=== PATIENT | male | born 1940 | race Caucasian/White ===

== ENCOUNTER → 2020-07-08 12:43 | Outpatient (CLI) | payer MEDICARE, SELFPAY ==
--- NOTE | 2020-07-08 13:00 | CDU_ITS ---
Reason For Study: hollenhorst plaque Rt. Velocities/BP Lt. Velocities/BP Prox CCA 116.7/12.6 cm/sec. Prox CCA 124.0/16.3 cm/sec. Mid CCA 89.3/14.4 cm/sec. Mid CCA 114.9/18.1 cm/sec. Dist CCA 107.6/16.3 cm/sec. Dist CCA 76.5/18.1 cm/sec. Prox ICA 63.7/15.8 cm/sec. Prox ICA 56.7/15.0 cm/sec. Mid ICA 69.9/18.3 cm/sec. Mid ICA 86.7/25.3 cm/sec. Dist ICA 82.1/23.2 cm/sec. Dist ICA 100.2/26.5 cm/sec. Rt. ICA/CCA = 82.1/89.3=0.9. Lt. ICA/CCA = 100.2/114.9=1.1. Prox ECA 62.5/7.2 cm/sec. Prox ECA 80.1/0.0 cm/sec. Rt. Vert. 69.5/11.8 cm/sec. LT Vert. is biphasic flow. Right Extracranial There is intimal thickening but no significant atherosclerotic plaque noted in the right common carotid artery. There is homogeneous, smooth atherosclerotic plaque noted in the right internal carotid artery. There is no significant atherosclerotic plaque noted in the right external carotid artery. Antegrade flow is noted in the right vertebral artery. Left Extracranial There is intimal thickening but no significant atherosclerotic plaque noted in the left common carotid artery. There is intimal thickening but no significant atherosclerotic plaque noted in the left internal carotid artery. There is no significant atherosclerotic plaque noted in the left external carotid artery. Biphasic flow is noted in the left vertebral artery. Procedure Carotid Duplex 13090. Exam performed in department. VL/Carotid Duplex Ultrasound Interpretation Summary Mild calcific plaque with shadowing proximal right internal carotid artery with less than 50% stenosis Less than 50% stenosis right external carotid artery Intimal thickening but no hemodynamically significant plaque proximal left inte rnal carotid artery with less than 50% stenosis Less than 50% stenosis left external carotid artery Bidirectional flow left vertebral suggestive of proximal left subclavian artery stenosis. Clinical correlation would be appropriate. Ordering Physician: Jeffy Barillas Referring Physician: García Cook Performed By: Yarely Magallanes RDCS, RVT
== END ==
PROVIDERS: PCP Family Medicine; Referring Provider Ophthalmology; Visit Provider Ophthalmology
DX: H34.211 Partial retinal artery occlusion, right eye (principal)
CPT/HCPCS: 93880

== ENCOUNTER → 2022-11-21 | Outpatient (CLI) | payer MEDICARE, SELFPAY ==
[2022-11-21 15:51] LABS: Bacteria 0 SEEN /hpf (None Seen); Mucous, Urine 0 SEEN /hpf (<or=2+); Squamous Epithelial Cells - UA 0 SEEN /hpf (0-5)
[2022-11-21 17:55] LABS: Absolute Lymphocyte Count 1.81 X10^3/uL (0.83-4.51); Absolute Neutrophil Count 4.1 X10^3/uL (2.0-7.7); Basophil# 0.08 X10^3/uL; Basophil% 1.2 % (0-1); Eosinophil# 0.45 X10^3/uL; Eosinophils% 6.5 % (0-5); Hemoglobin 14.3 g/dL (13.0-16.5); Lymphocyte # 1.81 X10^3/ul (0.83-4.51); Lymphocyte % 26.2 % (19-41); Mean Corp Hgb Conc 33.3 g/dL (32-36); Mean Corpuscular Hgb 30.4 pg (27.0-32.0); Mean Corpuscular Volume 91.3 fL (80-94); Mean Platelet Vol. 9.8 fl (6.2-12.0); Monocyte# 0.47 X10^3/uL; Monocyte% 6.8 % (0-10); NRBC Flagged by Analyzer 0 % (0-5); Neutrophil % 59.2 % (47-70); Platelet Count 183 K/mm3 (150-450); RBC Distribution Width CV 12.6 % (11.6-14.6); Red Blood Count 4.71 M/mm3 (4.6-6.2); White Blood Count 6.9 K/mm3 (4.4-11.0)
[2022-11-21 18:00] LABS: Color, Urine Yellow (Yellow); Glucose, Dipstick Normal (Normal); Ketone-Dipstick Negative (Negative); Leukocyte Esterase-Dipstick Negative /ul (Negative); Nitrite-Dipstick Negative (Negative); Occult Blood-Urine 10 /ul (Negative); Protein-Dipstick Negative (Negative); Urine Bilirubin Dipstick Negative (Negative); Urine Clarity Clear (Clear); Urine Urobilinogen Normal (Normal)
[2022-11-21 18:10] LABS: Red Blood Cells-Urine 0-5 SEEN /hpf (0-5); White Blood Cells 0-5 SEEN /hpf (0-5)
[2022-11-21 18:27] LABS: ALB/GLOB Ratio 1.2 RATIO (0.9-2.4); AST(SGOT) 28 U/L (15-37); Alanine Aminotransfer ALT/SGPT 26 U/L (16-61); Albumin, Serum 3.8 g/dL (3.2-5.0); Alkaline Phosphatase 43 U/L (45-117); Anion Gap 5 (5-15); BUN 18 mg/dL (7-18); BUN/Creat Ratio 15.3 RATIO (10-20); Calcium,Total 9.2 mg/dL (8.5-10.1); Chloride 106 mmol/L (98-107); Cholesterol 113 mg/dL (200); Creatinine, Serum 1.18 mg/dL (0.70-1.30); EST Glomerular Filtration Rate 63 mL/min (>60); Est Glom Filt Rate - Afr Amer 76 mL/min (>60); Globulin 3.3 g/dL (2.2-4.2); Glucose 97 mg/dL (74-106); High Density Lipoprotein 48 mg/dL; Protein, Total 7.1 g/dL (6.4-8.2); Sodium Level 139 mmol/L (136-145); Thyroid Stim Hormone (TSH) 1.34 uIU/mL (0.358-3.74); Triglycerides 152 mg/dL; Very Low Density Lipoprotein 30 mg/dL (5-40)
== END | disposition home or self-care (01) ==
PROVIDERS: PCP Family Medicine; Visit Provider Family Medicine
DX: E78.5 Hyperlipidemia, unspecified (principal); I10 Essential (primary) hypertension
CPT/HCPCS: 36415; 80053; 80061; 81001; 84443; 85025

== ENCOUNTER 2023-01-20 15:03 | Emergency (ER) | payer MEDICARE, SELFPAY ==
[2023-01-20 15:05] VITALS: BP 144/66; PULSE 62; RESP 18; TEMP 36.4; O2SAT 98; BMI 25.6
--- NOTE | 2023-01-20 15:24 | EX.ED.GENINJ ---
HPI History of Present Illness Chief Complaint: Fall Informant: patient Onset/Context/Timing Onset: Yesterday Narrative Narrative: Patient presents with left hand injury. He states that he was throwing leaves into the [place] yesterday when he misstepped, losing his balance and fell onto his left side. He complains of pain and swelling to his left hand. He is right-hand dominant. He denies striking his head, headache, or neck pain. He denies hip or lower extremity injury. [facility] Medical History (Updated 01/20/23 @ 16:[address] Marisa Schultz MD) Aortic dissection High cholesterol Hypertension Allergy/AdvReac Type Severity Reaction Status Date / Time celecoxib [From Celebrex] Allergy Hives Verified 01/20/23 15:05 Surgical History S/P aorta repair Social History Smoking Status: Current some day smoker tobacco type: pipe ROS ROS ED Constitutional Constitutional ED: Denies chills or fever(s) Eyes Eyes: Denies discharge from eye(s) ENT ENT ED: Denies discharge from eye(s), rhinorrhea or sore throat Cardiovascular Cardiovascular: Denies chest pain or palpitations Respiratory/Chest Respiratory/Chest: Denies cough or dyspnea Gastrointestinal Gastrointestinal: Denies abdominal pain, nausea or vomiting Musculoskeletal Musculoskeletal: Reports extremity pain; Denies back pain or neck pain Integumentary Denies Abrasions or rash Neurologic Neurologic: Denies headache(s) or weakness Psychiatric Psychiatric: Denies anxiety or depression Allergic/Immunologic Allergic/Immunologic ED: Denies lip swelling or urticaria EXAM Physical Exam Const Vital Signs: 01/20/23 15:05 01/20/23 15:29 Temperature 97.6 F L Temperature Source Temporal Pulse Rate 62 Respiratory Rate 18 Respiratory Effort Normal Respiratory Depth Normal Respiratory Pattern Normal Blood Pressure 144/66 H Blood Pressure Mean 92 Pulse Ox 98 95 Oxygen Delivery Method Room Air Room Air Positive well nourished and well developed General Appearance ED: well developed HEENT atraumatic Eyes EOMs intact bilaterally Neck full ROM Neck Narrative: No C-spine tenderness. Chest Wall inspection of chest normal and palpation of chest normal Resp normal respiratory effort and clear to auscultation bilaterally Cardio regular rhythm Rate: regular rate GI non-tender Palpation: soft Extremity Extremity Narrative: Mild diffuse tenderness and edema to the left hand. No deformity noted. Patient able to wiggle all digits and has good sensation. No tenderness noted at the wrist, elbow, or shoulder. Neuro oriented x3 and moves all extremities Psych mental status grossly normal MDM MDM MDM Narrative Medical decision making narrative: Left hand x-rays obtained to evaluate for fracture. Differential diagnosis includes sprain, strain, contusion, fracture. Radiography Diagnostic Testing: Clinical Impression(s) from Imaging Studies Hand X-Ray 01/20/23 15:30 IMPRESSION: No acute fracture or subluxation. Osteoarthritis. Soft tissue swelling. Electronically Signed: Paramjit Singletary MD at 16:04 EST , Treatment and Re-Evaluation Narrative: Left hand x-rays my interpretation reveals mild osteopenia with no obvious fracture. Radiology interpretation is reviewed and agrees. Chris wrap will be applied to help with soft tissue swelling. Patient instructed on appropriate elevation. Return instructions given. Discharge Plan Triage Chief Complaint: Fall ED Provider: Marisa Schultz Dx/Rx/DC Orders Clinical Impression: Sprain of left hand Instructions: ED Hand Sprain Primary Care Provider: Edson Baptiste Referrals: Edson Baptiste MD [Primary Care Provider] - 10-14 Days if not better Disposition Disposition: Home, Self Care
[2023-01-20 15:29] VITALS: O2SAT 95
--- NOTE | 2023-01-20 15:30 | RAD_ITS ---
EXAM: XR LEFT HAND COMPLETE, 3 OR MORE VIEWS CLINICAL INDICATION: injury TECHNIQUE: Frontal, lateral and oblique views of the left hand. COMPARISON: No relevant prior studies available. FINDINGS: BONES/JOINTS: No acute fracture or subluxation. Moderate osteoarthritic changes of the DIP joints. There is prominent degenerative change involving the junction of the distal radius and ulna as well as mild narrowing of the lateral joints of the wrist. Soft tissue calcification adjacent to the third MCP joint. SOFT TISSUES: Prominent dorsal soft tissue swelling. No radiopaque foreign body. RAD/Hand Min 3 Views IMPRESSION: No acute fracture or subluxation. Osteoarthritis. Soft tissue swelling. Electronically Signed: Paramjit Singletary MD at 16:04 EST ,
[2023-01-20 16:12] VITALS: PULSE 68; RESP 15; O2SAT 97
== END 2023-01-20 16:13 | disposition home or self-care (01) ==
LOC: ED 16:08
PROVIDERS: Emergency Provider Emergency Medicine; PCP Family Medicine; Visit Provider Emergency Medicine
DX: S63.92XA Sprain of unspecified part of left wrist and hand, initial encounter (principal); E78.00 Pure hypercholesterolemia, unspecified; F17.200 Nicotine dependence, unspecified, uncomplicated; I10 Essential (primary) hypertension; W17.89XA Other fall from one level to another, initial encounter; Y93.89 Activity, other specified; Y92.89 Other specified places as the place of occurrence of the external cause
CPT/HCPCS: 73130; 99282

== ENCOUNTER → 2023-03-04 | Outpatient (CLI) | payer MEDICARE, SELFPAY ==
[2023-03-04 10:54] LABS: Absolute Lymphocyte Count 2.23 X10^3/uL (0.83-4.51); Absolute Neutrophil Count 4.7 X10^3/uL (2.0-7.7); Basophil# 0.08 X10^3/uL; Eosinophil# 0.42 X10^3/uL; Eosinophils% 5.1 % (0-5); Hematocrit 42.4 % (40-54); Hemoglobin 13.7 g/dL (13.0-16.5); Lymphocyte # 2.23 X10^3/ul (0.83-4.51); Lymphocyte % 27.3 % (19-41); Mean Corp Hgb Conc 32.3 g/dL (32-36); Mean Corpuscular Hgb 29.9 pg (27.0-32.0); Mean Corpuscular Volume 92.6 fL (80-94); Mean Platelet Vol. 10.5 fl (6.2-12.0); Monocyte% 7.4 % (0-10); NRBC Flagged by Analyzer 0 % (0-5); Neutrophil # 4.69 X10^3/uL (2.7-7.7); Neutrophil % 57.5 % (47-70); Platelet Count 158 K/mm3 (150-450); RBC Distribution Width CV 12.6 % (11.6-14.6); RBC Distribution Width SD 42.9 fl (35.1-43.9); Red Blood Count 4.58 M/mm3 (4.6-6.2); White Blood Count 8.2 K/mm3 (4.4-11.0)
[2023-03-04 11:11] LABS: ALB/GLOB Ratio 1.1 RATIO (0.9-2.4); AST(SGOT) 23 U/L (15-37); Alanine Aminotransfer ALT/SGPT 23 U/L (16-61); Albumin, Serum 3.6 g/dL (3.2-5.0); Alkaline Phosphatase 42 U/L (45-117); Anion Gap 5 (5-15); BUN 25 mg/dL (7-18); BUN/Creat Ratio 19.8 RATIO (10-20); Calcium,Total 8.8 mg/dL (8.5-10.1); Chloride 110 mmol/L (98-107); Cholesterol 151 mg/dL (200); Creatinine, Serum 1.26 mg/dL (0.70-1.30); EST Glomerular Filtration Rate 58 mL/min (>60); Est Glom Filt Rate - Afr Amer 70 mL/min (>60); Globulin 3.2 g/dL (2.2-4.2); Glucose 97 mg/dL (74-106); High Density Lipoprotein 45 mg/dL; Potassium 4.3 mmol/L (3.5-5.1); Protein, Total 6.8 g/dL (6.4-8.2); Sodium Level 142 mmol/L (136-145); Triglycerides 112 mg/dL; Very Low Density Lipoprotein 22 mg/dL (5-40)
== END | disposition home or self-care (01) ==
LOC: MFPLAB 08:23
PROVIDERS: PCP Family Medicine; Visit Provider Family Medicine
DX: R30.0 Dysuria (principal); I10 Essential (primary) hypertension
CPT/HCPCS: 36415; 80053; 80061; 85025; 87086

== ENCOUNTER → 2023-07-11 | Outpatient (CLI) | payer MEDICARE, SELFPAY ==
[2023-07-11 15:28] LABS: Bacteria 0 SEEN /hpf (None Seen); Mucous, Urine 0 SEEN /hpf (<or=2+); Squamous Epithelial Cells - UA 0 SEEN /hpf (0-5)
[2023-07-11 17:43] LABS: Color, Urine Yellow (Yellow); Glucose, Dipstick Normal (Normal); Ketone-Dipstick Negative (Negative); Leukocyte Esterase-Dipstick 25 /ul (Negative); Nitrite-Dipstick Negative (Negative); Occult Blood-Urine 25 /ul (Negative); Protein-Dipstick 15 mg/dl (Negative); Urine Bilirubin Dipstick Negative (Negative); Urine Clarity Clear (Clear); Urine Urobilinogen Normal (Normal)
[2023-07-11 17:46] LABS: Absolute Lymphocyte Count 2.12 X10^3/uL (0.83-4.51); Absolute Neutrophil Count 4.2 X10^3/uL (2.0-7.7); Basophil# 0.07 X10^3/uL; Basophil% 0.9 % (0-1); Eosinophil# 0.47 X10^3/uL; Eosinophils% 6.4 % (0-5); Hematocrit 42.8 % (40-54); Hemoglobin 14.1 g/dL (13.0-16.5); Lymphocyte # 2.12 X10^3/ul (0.83-4.51); Lymphocyte % 28.6 % (19-41); Mean Corp Hgb Conc 32.9 g/dL (32-36); Mean Corpuscular Hgb 30.6 pg (27.0-32.0); Mean Corpuscular Volume 92.8 fL (80-94); Mean Platelet Vol. 9.9 fl (6.2-12.0); Monocyte% 6.8 % (0-10); NRBC Flagged by Analyzer 0 % (0-5); Neutrophil # 4.22 X10^3/uL (2.7-7.7); Platelet Count 181 K/mm3 (150-450); RBC Distribution Width CV 12.4 % (11.6-14.6); RBC Distribution Width SD 42.1 fl (35.1-43.9); Red Blood Count 4.61 M/mm3 (4.6-6.2); White Blood Count 7.4 K/mm3 (4.4-11.0)
[2023-07-11 17:54] LABS: Calcium Oxalate Crystals Ur RARE /hpf (<or=2+); Red Blood Cells-Urine 0-5 SEEN /hpf (0-5); White Blood Cells 0-5 SEEN /hpf (0-5)
[2023-07-11 18:39] LABS: ALB/GLOB Ratio 1.3 RATIO (0.9-2.4); AST(SGOT) 20 U/L (15-37); Alanine Aminotransfer ALT/SGPT 21 U/L (16-61); Albumin, Serum 3.9 g/dL (3.2-5.0); Alkaline Phosphatase 46 U/L (45-117); Anion Gap 5 (5-15); BUN 20 mg/dL (7-18); BUN/Creat Ratio 14.8 RATIO (10-20); Calcium,Total 9.4 mg/dL (8.5-10.1); Chloride 107 mmol/L (98-107); Cholesterol 160 mg/dL (200); Creatinine, Serum 1.35 mg/dL (0.70-1.30); EST Glomerular Filtration Rate 54 mL/min (>60); Est Glom Filt Rate - Afr Amer 65 mL/min (>60); Glucose 99 mg/dL (74-106); High Density Lipoprotein 45 mg/dL; Magnesium 2.4 mg/dL (1.6-2.6); Potassium 4.1 mmol/L (3.5-5.1); Protein, Total 6.9 g/dL (6.4-8.2); Sodium Level 140 mmol/L (136-145); Thyroid Stim Hormone (TSH) 2.83 uIU/mL (0.358-3.74); Triglycerides 185 mg/dL; Very Low Density Lipoprotein 37 mg/dL (5-40)
== END | disposition home or self-care (01) ==
LOC: MFPLAB 15:17
PROVIDERS: PCP Family Medicine; Visit Provider Family Medicine
DX: I10 Essential (primary) hypertension (principal)
CPT/HCPCS: 36415; 80053; 80061; 81001; 83735; 84443; 85025

== ENCOUNTER 2023-11-09 05:28 | Emergency (ER) | payer MEDICARE, SELFPAY ==
[2023-11-09 05:29] VITALS: BP 166/62; PULSE 54; RESP 16; TEMP 36.4; O2SAT 97; BMI 25.0
--- NOTE | 2023-11-09 05:39 | CT_ITS ---
We are attempting to reach an attending provider to discuss findings. An addendum with communication details will be sent when the communication is complete. HISTORY: abdominal pain RLQ/AAA. TECHNIQUE: CTA chest, abdomen, and pelvis was obtained the intravenous administration of 100 mL Isovue-370 with sagittal and coronal reconstructed MIP views. A radiation dose optimization technique was used for this scan. 905 images. COMPARISON: XR 09/09/2006. FINDINGS: Chest- CENTRAL AIRWAYS: Minimal dependent material at the michael. LUNGS: Calcified granulomas in the right middle lobe. Mild dependent lower lobe atelectasis. PLEURA: No pneumothorax or significant pleural effusion. HEART/PERICARDIUM: Heart within normal limits in size. Midline sternotomy. No significant pericardial effusion. VESSELS: Thoracic aortic dissection beginning from the proximal aortic arch to the abdominal aorta and extending into the right brachiocephalic, right common carotid, left common carotid, and left subclavian and axillary arteries. Mild acute intramural hematoma extending from the aortic arch to proximal descending aorta. No contrast extravasation into the mediastinum. No large central filling defect in the pulmonary arteries. MEDIASTINUM/EROS: Small calcified mediastinal lymph nodes. OSSEOUS STRUCTURES/CHEST WALL: Degenerative change. Abdomen and pelvis- BOWEL: Bowel including appendix nondilated. No focal pericolonic inflammatory change. PERITONEUM: No significant ascites. LIVER: Small cysts measuring up to 2.6 cm and the left lobe. Transient hepatic attenuation difference noted in the right lobe. GALLBLADDER: Cholecystectomy. SPLEEN/PANCREAS/ADRENAL GLANDS: No focal lesions. KIDNEYS: No hydronephrosis. Subcentimeter right renal cyst. VESSELS: Abdominal aortic dissection extends to the bifurcation and into the origin of the celiac axis and superior mesenteric artery . False lumen supplies the right renal artery and true lumen supplies the left renal and inferior mesenteric arteries. 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 PELVIC ORGANS: Mildly enlarged prostate gland. OSSEOUS STRUCTURES: Degenerative change. CT/CTA Chst, Abd, Pel W and/or WO IMPRESSION: Aortic dissection extending from the proximal aortic arch to abdominal aorta with mild acute intramural hematoma in the aortic arch extending to the proximal descending aorta. No contrast extravasation into the mediastinum or acute retroperitoneal hematoma. Extension of dissection into the major arch vessels and branches of the abdominal aorta as above. Normal contrast-enhanced CT of the abdomen and pelvis. Electronically Signed: Maddy De La Cruz MD at 8:19 EDT ,
--- NOTE | 2023-11-09 05:40 | EX.ED.DYSGE1 ---
HPI History of Present Illness Chief Complaint: Abd Pain Detail of Chief Complaint: Abdominal pain Informant: patient Narrative Narrative: Patient presents with abdominal pain that started about half an hour ago. Patient states the pain woke him from sleep. Pain came on suddenly. Pain is 8 out of 10. Denies nausea or vomiting. Denies diarrhea. Denies urinary symptoms. He has not had pain like this before. Has history of a bladder stone. 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 Patient went to bed feeling fine. [facility] Medical History Aortic dissection High cholesterol Hypertension Home Medications ?Medication ?Instructions ?Recorded ?Last Taken ?Type amlodipine 5 mg tablet 5 mg PO DAILY 11/09/23 Unknown History aspirin 81 mg tablet,delayed 81 mg PO QODAY 11/09/23 Unknown History release (Adult Aspirin Regimen) clopidogrel 75 mg tablet 75 mg PO DAILY 11/09/23 Unknown History metoprolol succinate 100 mg 100 mg PO DAILY 11/09/23 Unknown History tablet,extended release 24 hr ramipril 10 mg capsule 10 mg PO DAILY 11/09/23 Unknown History rosuvastatin 10 mg tablet 10 mg PO QHS 11/09/23 Unknown History tamsulosin 0.4 mg capsule 0.4 mg PO DAILY 11/09/23 Unknown History Allergy/AdvReac Type Severity Reaction Status Date / Time celecoxib (From Celebrex) Allergy Hives Verified 11/09/23 05:30 Surgical History S/P aorta repair Social History Smoking Status: Current some day smoker tobacco type: pipe ROS ROS ED Review of Systems ROS Unobtainable: other Constitutional Constitutional ED: Reports lethargy; Denies chills, fever(s), sweats or weight loss Eyes Eyes: Denies blurry vision, change in vision or diplopia ENT ENT ED: Denies rhinorrhea or sore throat Cardiovascular Cardiovascular: Denies chest pain, orthopnea or racing heartbeat Respiratory/Chest Respiratory/Chest: Denies cough, dyspnea, dyspnea on exertion, orthopnea or sputum Gastrointestinal Gastrointestinal: Reports abdominal pain; Denies diarrhea, nausea or vomiting Genitourinary Genitourinary ED: Denies dysuria, hematuria or urinary frequency Musculoskeletal Musculoskeletal: Denies arthralgias, back pain, myalgias or neck pain Integumentary Denies abscess, Abrasions or rash Neurologic Neurologic: Denies headache(s) or weakness Psychiatric Psychiatric: Denies anxiety, depression or suicidal thoughts Endocrine Endocrinology: Denies polydipsia, polyphagia or polyuria Hematologic/Lymphatic Hematologic/Lymphatic: Denies easy bleeding, easy bruising or lymphadenopathy Allergic/Immunologic Allergic/Immunologic ED: Denies mouth swelling, tongue swelling or urticaria EXAM Physical Exam Const Vital Signs: 11/09/23 05:29 Temperature 97.6 F L Temperature Source Oral Pulse Rate 54 L Respiratory Rate 16 Blood Pressure 166/62 H Blood Pressure Mean 96 Pulse Ox 97 Positive well nourished and well developed General Appearance ED: well developed and NAD HEENT Reports TM's clear and moist mucous membranes normocephalic and atraumatic; Negative for trauma or tenderness Tympanic Membrane ED: Yes TM's clear Eyes PERRL and EOMs intact bilaterally General Eye ED: Negative for pale conjunctiva or scleral icterus Neck no lymphadenopathy, supple and no JVD General: Negative for tenderness Chest Wall inspection of chest normal and palpation of chest normal Chest: Negative for tenderness Resp normal respiratory effort and clear to auscultation bilaterally Effort and Inspection: Negative for respiratory distress or pain with movement Auscultation: Negative for rhonchi, wheezes or diminished lung sounds Cardio regular rate, regular rhythm, S1 normal heart sound, S2 normal heart sound and no murmurs Peripheral Pulses: pulses 2+ throughout GI normal to inspection, nondistended, normoactive bowel sounds, soft to palpation, non-distended and no masses GI Narrative: Tenderness palpation of the right lower quadrant with guarding. There is no rebound, rigidity, or. No signs. No mass palpated. Back/Spine no CVA tenderness and no thoracic nor lumbar tenderness Extremity normal to inspection General Extremety ED: Negative for edema General Extremity: Negative for edema Neuro oriented x3, CN's II-XII intact bilaterally, no sensory deficits noted and gait normal Sensorium / Orientation: awake, alert, oriented to person, oriented to place and oriented to time Motor Exam: strength 5/5 throughout and strength abnormal Psych mental status grossly normal Skin no rashes or lesions noted and no wounds MDM MDM MDM Narrative Medical decision making narrative: Patient presents with sudden onset right lower quadrant pain. He has history of AAA and ascending aorta repair that is remote. In the differential would be kidney stone versus appendicitis versus aortic aneurysm or dissection. IV line established. He was medicated with morphine and Zofran. CBC with differential white count 9.4 with hemoglobin 14 and platelet count of 172. Chemistries unremarkable. BUN 21 creatinine 1.35. LFTs unremarkable. Lactate pending. CTA of chest abdomen pelvis ordered and results are pending. Case will be turned over to morning physician awaiting CT results as well as urinalysis and final disposition Lab Data Attestation: I reviewed the patient's lab results. Labs: Laboratory Results - last 24 hr 11/09/23 05:35 WBC 9.4 RBC 4.79 Hgb 14.1 Hct 42.9 MCV 89.6 MCH 29.4 MCHC 32.9 RDW Std Deviation 41.8 RDW Coeff of Abebe 12.8 Plt Count 172 MPV 9.9 Immature Gran % (Auto) 0.200 Neut % (Auto) 56.7 Lymph % (Auto) 28.9 Lamar % (Auto) 7.7 Eos % (Auto) 5.5 H Baso % (Auto) 1.0 Absolute Neuts (auto) 5.3 Absolute Lymphs (auto) 2.70 Nucleated RBC % 0 Sodium 141 Potassium 4.1 Chloride 106 Carbon Dioxide 30.0 Anion Gap 5 BUN 21 H Creatinine 1.35 H Estim Creat Clear Calc 43.56 Est GFR (MDRD) Af Amer 65 Est GFR (MDRD) Non-Af 54 L BUN/Creatinine Ratio 15.6 Glucose 113 H Calcium 9.4 Total Bilirubin 0.70 AST 27 ALT 25 Alkaline Phosphatase 42 L Total Protein 7.0 Albumin 3.8 Globulin 3.2 Albumin/Globulin Ratio 1.2 Discharge Plan Triage Chief Complaint: Abd Pain ED Provider: Cortney Pardo Dx/Rx/DC Orders Prescriptions: No Action metoprolol succinate 100 mg tablet extended release 24 hr 100 mg PO DAILY clopidogrel 75 mg tablet 75 mg PO DAILY amlodipine 5 mg tablet 5 mg PO DAILY tamsulosin 0.4 mg capsule 0.4 mg PO DAILY ramipril 10 mg capsule 10 mg PO DAILY rosuvastatin 10 mg tablet 10 mg PO QHS aspirin [Adult Aspirin Regimen] 81 mg tablet,delayed release (DR/EC) 81 mg PO QODAY Primary Care Provider: Edson Baptiste Referrals: Edson Baptiste MD [Primary Care Provider] - Print Language: Swedish
[2023-11-09] MEDS: 0.9% Normal Saline (1000mL) 1,000 ML 125 ML IV (05:49)
[2023-11-09] MEDS: Morphine 4 MG/ML Syringe IV (05:50)
[2023-11-09] MEDS: Ondansetron 4 MG/2 ML Vial IV (05:50)
[2023-11-09 05:58] LABS: Absolute Neutrophil Count 5.3 X10^3/uL (2.0-7.7); Basophil# 0.09 X10^3/uL; Eosinophil# 0.51 X10^3/uL; Eosinophils% 5.5 % (0-5); Hematocrit 42.9 % (40-54); Hemoglobin 14.1 g/dL (13.0-16.5); Lymphocyte % 28.9 % (19-41); Mean Corp Hgb Conc 32.9 g/dL (32-36); Mean Corpuscular Hgb 29.4 pg (27.0-32.0); Mean Corpuscular Volume 89.6 fL (80-94); Mean Platelet Vol. 9.9 fl (6.2-12.0); Monocyte# 0.72 X10^3/uL; Monocyte% 7.7 % (0-10); NRBC Flagged by Analyzer 0 % (0-5); Neutrophil # 5.31 X10^3/uL (2.7-7.7); Neutrophil % 56.7 % (47-70); Platelet Count 172 K/mm3 (150-450); RBC Distribution Width CV 12.8 % (11.6-14.6); RBC Distribution Width SD 41.8 fl (35.1-43.9); Red Blood Count 4.79 M/mm3 (4.6-6.2); White Blood Count 9.4 K/mm3 (4.4-11.0)
[2023-11-09 06:15] LABS: ALB/GLOB Ratio 1.2 RATIO (0.9-2.4); AST(SGOT) 27 U/L (15-37); Alanine Aminotransfer ALT/SGPT 25 U/L (16-61); Albumin, Serum 3.8 g/dL (3.2-5.0); Alkaline Phosphatase 42 U/L (45-117); Anion Gap 5 (5-15); BUN 21 mg/dL (7-18); BUN/Creat Ratio 15.6 RATIO (10-20); Calcium,Total 9.4 mg/dL (8.5-10.1); Chloride 106 mmol/L (98-107); Creatinine, Serum 1.35 mg/dL (0.70-1.30); EST Glomerular Filtration Rate 54 mL/min (>60); Est Glom Filt Rate - Afr Amer 65 mL/min (>60); Estimated Creatinine Clearance 43.56 ml/min; Globulin 3.2 g/dL (2.2-4.2); Glucose 113 mg/dL (74-106); Potassium 4.1 mmol/L (3.5-5.1); Sodium Level 141 mmol/L (136-145)
[2023-11-09 06:43] LABS: Bacteria 0 SEEN /hpf (None Seen); Mucous, Urine 0 SEEN /hpf (<or=2+); Red Blood Cells-Urine 0 SEEN /hpf (0-5); Squamous Epithelial Cells - UA 0 SEEN /hpf (0-5); White Blood Cells 0 SEEN /hpf (0-5)
[2023-11-09 06:44] LABS: Color, Urine Yellow (Yellow); Glucose, Dipstick Normal (Normal); Ketone-Dipstick Negative (Negative); Leukocyte Esterase-Dipstick Negative /ul (Negative); Nitrite-Dipstick Negative (Negative); Occult Blood-Urine 10 /ul (Negative); Protein-Dipstick Negative (Negative); Urine Bilirubin Dipstick Negative (Negative); Urine Clarity Clear (Clear); Urine Urobilinogen Normal (Normal)
[2023-11-09 06:55] LABS: Lactic Acid 1.5 mmol/L (0.4-1.9)
[2023-11-09 07:29] VITALS: BP 114/52; PULSE 68; RESP 18; O2SAT 98
[2023-11-09 08:50] VITALS: BP 114/73; PULSE 59; RESP 18; TEMP 36.6; O2SAT 97
== END 2023-11-09 08:51 | disposition home or self-care (01) ==
PROVIDERS: Emergency Provider Emergency Medicine; PCP Family Medicine; Visit Provider Emergency Medicine
DX: R10.31 Right lower quadrant pain (principal); I10 Essential (primary) hypertension; E78.00 Pure hypercholesterolemia, unspecified; F17.210 Nicotine dependence, cigarettes, uncomplicated; Z87.442 Personal history of urinary calculi; Z79.899 Other long term (current) drug therapy; Z79.82 Long term (current) use of aspirin
CPT/HCPCS: 71275; 74174; 80053; 81001; 83605; 85025; 96361; 96374; 96375; 99283; J7030; Q9967; A4216; J2405

== ENCOUNTER → 2024-01-17 | Outpatient (CLI) | payer MEDICARE, SELFPAY ==
[2024-01-17 10:20] LABS: Color, Urine Yellow (Yellow); Glucose, Dipstick Normal (Normal); Ketone-Dipstick Negative (Negative); Leukocyte Esterase-Dipstick 25 /ul (Negative); Nitrite-Dipstick Negative (Negative); Occult Blood-Urine 25 /ul (Negative); Protein-Dipstick 30 mg/dl (Negative); Specific Gravity, Urine 1.025 (1.002-1.030); Urine Bilirubin Dipstick Negative (Negative); Urine Clarity Clear (Clear); Urine Urobilinogen 1 mg/dl (Normal)
[2024-01-17 10:21] LABS: Absolute Lymphocyte Count 1.89 X10^3/uL (0.83-4.51); Absolute Neutrophil Count 4.8 X10^3/uL (2.0-7.7); Basophil# 0.07 X10^3/uL; Basophil% 0.9 % (0-1); Eosinophil# 0.39 X10^3/uL; Hematocrit 40.2 % (40-54); Lymphocyte # 1.89 X10^3/ul (0.83-4.51); Mean Corp Hgb Conc 32.3 g/dL (32-36); Mean Corpuscular Hgb 29.9 pg (27.0-32.0); Mean Corpuscular Volume 92.4 fL (80-94); Mean Platelet Vol. 10.3 fl (6.2-12.0); Monocyte# 0.57 X10^3/uL; Monocyte% 7.3 % (0-10); NRBC Flagged by Analyzer 0 % (0-5); Neutrophil # 4.82 X10^3/uL (2.7-7.7); Neutrophil % 61.3 % (47-70); Platelet Count 176 K/mm3 (150-450); RBC Distribution Width CV 12.8 % (11.6-14.6); RBC Distribution Width SD 43.7 fl (35.1-43.9); Red Blood Count 4.35 M/mm3 (4.6-6.2); White Blood Count 7.9 K/mm3 (4.4-11.0)
[2024-01-17 11:20] LABS: ALB/GLOB Ratio 1.3 RATIO (0.9-2.4); AST(SGOT) 19 U/L (15-37); Alanine Aminotransfer ALT/SGPT 22 U/L (16-61); Albumin, Serum 3.7 g/dL (3.2-5.0); Alkaline Phosphatase 42 U/L (45-117); Anion Gap 3 (5-15); BUN 23 mg/dL (7-18); BUN/Creat Ratio 17.7 RATIO (10-20); Calcium,Total 9.1 mg/dL (8.5-10.1); Chloride 110 mmol/L (98-107); Cholesterol 139 mg/dL (200); EST Glomerular Filtration Rate 56 mL/min (>60); Est Glom Filt Rate - Afr Amer 68 mL/min (>60); Globulin 2.8 g/dL (2.2-4.2); Glucose 104 mg/dL (74-106); High Density Lipoprotein 45 mg/dL; Potassium 4.6 mmol/L (3.5-5.1); Protein, Total 6.5 g/dL (6.4-8.2); Sodium Level 142 mmol/L (136-145); Triglycerides 95 mg/dL; Very Low Density Lipoprotein 19 mg/dL (5-40)
== END | disposition home or self-care (01) ==
LOC: MTLAB 08:06
PROVIDERS: PCP Family Medicine; Referring Provider Family Medicine; Visit Provider Family Medicine
DX: I10 Essential (primary) hypertension (principal)
CPT/HCPCS: 36415; 80053; 80061; 81002; 85025

== ENCOUNTER → 2024-04-03 | Outpatient (CLI) | payer MEDICARE, SELFPAY ==
--- NOTE | 2024-04-03 08:47 | VDLE_ITS ---
Reason For Study: Pain RIGHT LEFT GSV is normal. GSV is normal. CFV is compressible, spontaneous, phasic, CFV is compressible, spontaneous, phasic, competent and demonstrates normal competent, and demonstrates normal augmentation. augmentation. FV is compressible, spontaneous, phasic, FV is compressible, spontaneous, phasic, competent and demonstrates normal competent and demonstrates normal augmentation. augmentation. POP V is compressible, spontaneous, phasic, POP V is compressible, spontaneous, phasic, competent and demonstrates normal competent and demonstrates normal augmentation. augmentation. T/P Trunk is compressible. T/P Trunk is compressible. PTV is compressible. PTV is compressible. RT PerV is compressible. LT PerV is compressible. Procedure This is a venous duplex using B-mode, color flow and spectral Doppler. Exam performed in department. A preliminary report was called and/or faxed to Dr. Edson Baptiste MD. VL/Venous Duplex US - Miquel Extrem Interpretation Summary Deep veins of the bilateral lower extremities are patent and compressible segme ntally. There is no evidence of bilateral lower extremity deep vein thrombosis. The bilateral great saphenous veins appear patent and compressible segmentally. Ordering Physician: Edson Baptiste Referring Physician: Edson Baptiste Performed By: Altagracia Lacey RVT and Student
[2024-04-03 11:26] LABS: ALB/GLOB Ratio 1.3 RATIO (0.9-2.4); AST(SGOT) 18 U/L (15-37); Alanine Aminotransfer ALT/SGPT 21 U/L (16-61); Albumin, Serum 3.6 g/dL (3.2-5.0); Alkaline Phosphatase 41 U/L (45-117); Anion Gap 3 (5-15); BUN 28 mg/dL (7-18); BUN/Creat Ratio 18.4 RATIO (10-20); Chloride 110 mmol/L (98-107); Creatinine, Serum 1.52 mg/dL (0.70-1.30); EST Glomerular Filtration Rate 47 mL/min (>60); Est Glom Filt Rate - Afr Amer 57 mL/min (>60); Globulin 2.7 g/dL (2.2-4.2); Glucose 120 mg/dL (74-106); Potassium 4.5 mmol/L (3.5-5.1); Protein, Total 6.3 g/dL (6.4-8.2); Sodium Level 140 mmol/L (136-145)
== END | disposition home or self-care (01) ==
PROVIDERS: PCP Family Medicine; Referring Provider Family Medicine; Visit Provider Family Medicine
DX: M79.604 Pain in right leg (principal)
CPT/HCPCS: 36415; 80053; 93970

== ENCOUNTER → 2024-10-13 | Outpatient (CLI) | payer MEDICARE, SELFPAY ==
[2024-10-13 11:15] LABS: Mucous, Urine 0 SEEN /hpf (<or=2+); Red Blood Cells-Urine 0 SEEN /hpf (0-5); Squamous Epithelial Cells - UA 0 SEEN /hpf (0-5)
[2024-10-13 15:55] LABS: Hematocrit 38.0 % (40-54); Hemoglobin 12.1 g/dL (13.0-16.5); Immature Granulocytes Count 0.030 X10^3/uL (0.0-0.0); Mean Corp Hgb Conc 31.8 g/dL (32-36); Mean Corpuscular Volume 91.8 fL (80-94); Mean Platelet Vol. 9.6 fl (6.2-12.0); NRBC Flagged by Analyzer 0 % (0-5); Platelet Count 195 K/mm3 (150-450); RBC Distribution Width CV 13.4 % (11.6-14.6); RBC Distribution Width SD 45.4 fl (35.1-43.9); Red Blood Count 4.14 M/mm3 (4.6-6.2); White Blood Count 6.9 K/mm3 (4.4-11.0)
[2024-10-13 16:10] LABS: AST(SGOT) 16 U/L (<=37); Alanine Aminotransfer ALT/SGPT 10 U/L (<=46); Albumin, Serum 4.1 g/dL (3.4-4.8); Alkaline Phosphatase 50 U/L (40-129); Anion Gap 12 (5-15); BUN 19 mg/dL (4-19); BUN/Creat Ratio 14.0 RATIO (10-20); Calcium,Total 9.8 mg/dL (7.6-11.0); Carbon Dioxide 24.4 mmol/L (21.0-32.0); Chloride 105 mmol/L (98-108); Cholesterol 147 mg/dL (<=200); Globulin 2.6 g/dL (2.2-4.2); Glucose 94 mg/dL (70-99); Low Density Lipoprotein Calc. 78 mg/dL; Magnesium 2.3 mg/dL (1.5-2.2); Potassium 4.5 mmol/L (3.3-5.1); Triglycerides 137 mg/dL; Very Low Density Lipoprotein 27 mg/dL (5-40); cholesterol:hdl ratio screen 3.49
[2024-10-13 16:27] LABS: Color, Urine Yellow (Yellow); Glucose, Dipstick Normal (Normal); Ketone-Dipstick Negative (Negative); Leukocyte Esterase-Dipstick Negative /ul (Negative); Nitrite-Dipstick Negative (Negative); Occult Blood-Urine 10 /ul (Negative); Protein-Dipstick 15 mg/dl (Negative); Specific Gravity, Urine 1.020 (1.002-1.030); Urine Bilirubin Dipstick Negative (Negative)
[2024-10-14 16:34] LABS: Ferritin 123 ng/mL (37-417); Iron 62 ug/dL (65-175); Iron Binding Capacity,Unsat 161 ug/dL (228-428); Vitamin B12 491 pg/mL (180-914)
[2024-10-14 16:39] LABS: Iron Binding Capacity,Total 223 ug/dL (250-450)
== END | disposition home or self-care (01) ==
LOC: MFPLAB 11:12
PROVIDERS: PCP Family Medicine; Referring Provider Family Medicine; Visit Provider Family Medicine
DX: D64.9 Anemia, unspecified (principal); I10 Essential (primary) hypertension
CPT/HCPCS: 80053; 80061; 81001; 82607; 82728; 83540; 83550; 83735; 85025

== ENCOUNTER → 2024-10-28 | Outpatient (CLI) | payer MEDICARE, SELFPAY ==
[2024-10-28 12:56] LABS: Anion Gap 10 (5-15); BUN 18 mg/dL (4-19); BUN/Creat Ratio 13.8 RATIO (10-20); Calcium,Total 9.5 mg/dL (7.6-11.0); Carbon Dioxide 26.4 mmol/L (21.0-32.0); Chloride 106 mmol/L (98-108); Glucose 94 mg/dL (70-99); Potassium 4.4 mmol/L (3.3-5.1)
--- OUTSIDE RECORDS SUMMARY | 2024-10-28 18:52 | XMS RPT_ITS | CCD ---
Author Organization [facility] Care Team Providers Care Tobacco Grader Name Role Phone García Peoples Scot Unavailable Unavailable Unavailable Unavailable Monica Escamilla Unavailable Unavailable Monica Escamilal Unavailable Unavailable Monica Escamilla Unavailable Unavailable Monica Escamilla Unavailable Unavailable Monica Escamilla Unavailable Unavailable Victor HugoMonica fields Unavailable Unavailable Peoples, Edward E Unavailable Peoples, Edward E Primary Care Provider Peoples, Edward E Admitting Unavailable Peoples, Edward E Attending Unavailable Peoples, Edward E Primary Care Unavailable Peoples, Edward E Primary Care Unavailable Ivanauskas, Saulius Admitting Unavailable Ivkumaras, Saulius Attending Unavailable Edson Mcduffie W Admitting Unavailable McduffieEdson W Attending Unavailable Peoples, Edward E Primary Care Unavailable Peoples, Edward E Admitting Unavailable Peoples, Edward E Attending Unavailable Peoples, Edward E Primary Care Unavailable Mcduffie, Edson W Attending Unavailable Peoples, Edward E Primary Care Unavailable McduffieEdson W Admitting Unavailable McduffieEdson W Attending Unavailable Peoples, Edward E Primary Care Unavailable Mcduffie, Edson W Admitting Unavailable McduffieEdson W Attending Unavailable Peoples, Edward E Primary Care Unavailable Mcduffie, Edson W Attending Unavailable Peoples, Edward E Primary Care Unavailable Mcduffie, Edson W Admitting Unavailable Mcduffie, Edson W Attending Unavailable Peoples, Edward E Primary Care Unavailable Peoples, Edward E Admitting Unavailable Peoples, Edward E Attending Unavailable Peoples, Edward E Primary Care Unavailable MONICA ESCAMILLA Attending Unavailab le GARCÍA PEOPLES SCOT Primary Care UnavailGarcía Altamirano MD Primary Care Provider Peoples, Edward E Primary Care Provider [phone] No, Referral Unavailable Unavailable Julianne Lit KESSLER Unavailable Joyce FRAUSTO, García E Primary Care Provider SELF, SELF Referring Unavailable EPOPLES, EDWARD E Primary Care Unavailable PEOPLES, EDWARD E Attending Unavailable PEOPLES, EDWARD E Primary Care Unavailable SELF, SELF Referring Unavailable PEOPLES, EDWARD E Attending Unavailable PEOPLES, EDWARD E Attending Unavailable SELF, SELF Referring Unavailable PEOPLES, EDWARD E Primary Care Unavailable PEOPLES, EDWARD E Primary Care Unavailable PEOPLES, EDWARD E Primary Care Unavailable PEOPLES, EDWARD E Primary Care Unavailable PEOPLES, EDWARD E Primary Care Unavailable PEOPLES, EDWARD E Primary Care Unavailable Peoples, Edward E Primary Care Provider No, Referral Unavailable Unavailable Lit Whitaker DO Unavailable No, Referral Unavailable Unavailable Lit Whitaker DO Unavailable [phone] Sidra FRAUSTO, Edson Moulton Primary Care Provider Edson Baptiste MD Primary Care Provider SONDRA CURRY Referring Unavailable SCHBRENDANER, EDSON E Primary Care Unavailable SCHGASTON, EDSON E Primary Care Unavailable MANUEL RAMSAY Referring Unavailable GORGUN, Fritz Attending Unavailable SCHINANITHA, EDSON E Primary Care Unavailable MANUEL RAMSAY Attending Unavailable EVA ASH Referring Unavailable SCHINANITHA, EDSON E Primary Care Unavailable EVA ASH Attending Unavailable SCHGASTON, EDSON E Primary Care Unavailable SCHINNER, EDSON E Primary Care Unavailable GILDA CHOPRA Attending Unavailable SCHINNER, EDSON E Primary Care Unavailable MANSI LANDERS Admitting Unavailable MANSI LANDERS Attending Unavailable SHADI SCHAFFER Consulting Unavailsean e SIDRA, EDSON E Primary Care Unavailable JEFFY BADILLO Attending Unavailable JEFFY BADILLO Attending Unavailable SCHINNER, EDSON E Primary Care Unavailable GORGUN, I Referring Unavailable SCHINNER, EDSON E Primary Care Unavailable HAM MCCARTHY Attending Unavailable SCHINNER, EDSON E Primary Care Unavailable JENNIFER PAGAN Referring Unavailable SCHINNER, EDSON E Primary Care Unavailable SCHINNER, EDSON E Primary Care Unavailable SARA MCDANIEL Referring Unavailable EDSON BAPTISTE Primary Care Unavailable Sidra FRAUSTO, Dr. Edson Moulton Primary Care Provider Sidra FRAUSTO, Dr. Edson Moulton Attending Provider Sidra FRAUSTO, Dr. Edson Moulton Referring Provider [phone] Edson Baptiste Attending Unavailable Edson Baptiste Referring Unavailable Edson Baptiste Primary Care Unavailable Edson Baptiste Primary Care Unavailable Cortney Pardo Attending Unavailable Edson Baptiste Primary Care Unavailable Chris Zavala Attending Unavailable Edson Baptiste Referring Unavailable Edson Baptiste Primary Care Unavailable Edson Baptiste Attending Unavailable Edson Baptiste Referring Unavailable Edson Baptiste Primary Care Unavailable Edson Baptiste Attending Unavailable Edson Baptsite Referring Unavailable Edson Baptiste Primary Care Unavailable Edson Baptiste Attending Unavailable Edson Baptiste Referring Unavailable EDSON BAPTISTE Primary Care Unavailable MAX TANG Referring Unavailable EDSON BAPTISTE Primary Care Unavailable MAX TANG Referring Unavailable EDSON BAPTISTE Primary Care Unavailable MANSI LANDERS Referring Unavailable EDSON BAPTISTE Primary Care Unavailable MAX TANG Referring Unavailable EDSON BAPTISTE Primary Care Unavailable MANSI LANDERS Referring Unavailable EDSON BAPTISTE Primary Care Unavailable MANSI LANDERS Referring Unavailable EDSON BAPTISTE Primary Care Unavailable MANSI LANDERS Referring Unavailable EDSON BAPTISTE Primary Care Unavailable MANSI LANDERS Referring Unavailable EDSON BAPTISTE Primary Care Unavailable MAX TANG Referring Unavailable EDSON COLES Attending Unavailable EDSON BAPTISTE Primary Care Unavailable MIRLANDE LOVELL Attending Unavailable EDSON BAPTISTE Primary Care Unavailable EDSON BAPTISTE Primary Care Unavailable MANSI LANDERS Referring Unavailable EDSON BAPTISTE Primary Care Unavailable MARNI CATHERINE Attending Unavailable MARNI CATHERINE Referring Unavailable EDSON BAPTISTE Primary Care Unavailable EDSON BAPTISTE Primary Care Unavailable MARNI CATHERINE Attending Unavailable EDSON BAPTISTE Primary Care Unavailable EDSON BAPTISTE Primary Care Unavailable MARNI CATHERINE Attending Unavailable SUY[place] Consulting Unavailable CHRISTINE SUH Attending Unavailable KAREN BARRIENTOS Admitting Unavailable EDSON BAPTISTE Primary Care Unavailable JACOB BAKER Consulting Unavailable EDSON BAPTISTE Primary Care Unavailable EDSON COLES Referring Unavailable CHRISTINE SUH Attending Unavailable CHRISTINE SUH Admitting Unavailable Allergies Allergy Classification Reported Allergen(s) Allergy Type Date of Onset Reaction(s) Facility (20 sources) atorvastatin; Translations: [ATORVASTATIN] Propensity to adverse reactions to drug 5 Unknown [facility] Work Phone: (20 sources) celecoxib; Translations: [Unknown] Propensity to adverse reactions to drug 8 Itching, Hives [facility] Work Phone: (11 sources) atorvastatin Drug Allergy [facility] Work Phone: (2 sources) celecoxib; Translations: [Celebrex] Drug Allergy [facility] Repository (1 source) celecoxib Drug Allergy 4 [facility] Repository Medications Current Medications Medication Drug Class(es) Dates Sig (Normalized) Sig (Original) acetaminophen 325 mg oral tablet (20 sources) Start: 08-13-2024 take 2 tablets enteral route every four hours as needed acetaminophen (TYLENOL) 325 mg tablet 2 tablets by ORAL/FEEDING TUBE route every 4 hours as needed for pain. 08/13/2024 Active acetaminophen 300 mg / codeine phosphate 30 mg oral tablet (3 sources) Opioid Agonist Start: 05-10-2017 End: 05-17-2017 take 1 tablet by mouth every six hours as needed for pain acetaminophen-codei ne (TYLENOL #3) 300-30 mg per tablet Indications: Status post total bilateral knee replacement Take 1 (one) tablet by mouth every 6 (six) hours as needed for pain. 30 tablet 0 05/10/2017 05/17/2017 Active Start: 04-23-2017 End: 05-10-2017 acetaminophen-codeine (TYLEN OL #3) 300-30 mg per tablet Start: 04-08-2017 End: 04-18-2017 take 1 tablet by mouth every four hours as needed for pain acetaminophen-codeine (TYLENOL-CODEINE #3) 300-30 mg per tablet Indications: Status post total bilateral knee replacement Take 1 (one) tablet by mouth every 4 (four) hours as needed for pain. 40 tablet 0 04/08/2017 04/18/2017 Active acetaminophen 325 mg / oxyCODONE hydrochloride 5 mg oral tablet (2 sources) Opioid Agonist Start: 03-19-2017 End: 03-26-2017 take 1 tablet by mouth every four hours as needed for pain oxyCODONE-acetaminophen (PERCOCET) 5-325 mg per tablet Indications: Status post total bilateral knee replacement Take 1 (one) tablet by mouth every 4 (four) hours as needed for pain. 40 tablet 0 03/19/2017 03/26/2017 Active Start: 03-08-2017 End: 03-19-2017 oxyCODONE-acetaminophen (PER COCET) 5-325 mg per tablet amoxicillin 500 mg oral capsule (7 sources) Penicillin-class Antibacterial Start: 07-21-2024 amoxicillin (AMOXIL) 500 mg capsule TAKE 4 CAPSULES BY MOUTH A SINGLE DOSE 1 HOUR BEFORE DENTAL APPOINTMENT 07/21/2024 Active aspirin 81 mg delayed release oral tablet (20 sources) Nonsteroidal Anti-inflammatory Drug Start: 11-09-2023 take 1 tablet by mouth every other day Aspirin (Adult Aspirin Regimen) 81 mg tablet,delayed release (DR/EC) Active 81 mg PO EVERY OTHER DAY November 09, 2023 12:00am Start: 03-08-2017 End: 03-19-2017 take 1 tablet by mouth twice daily aspirin 325 MG EC tablet TAKE ONE TABLET BY MOUTH TWICE DAILY, START AT 9PM THE DAY OF SURGERY 0 03/08/2017 Active Start: 05-15-2004 aspirin 81 mg chewable tablet Take 81 mg by mouth once daily. 3 time a week 60 tablet 0 08/25/2014 Active Comment on above: Take 1 tablet by consuelo th once daily. Take 81 mg by mouth once daily. 3 time a week bisacodyl 10 mg rectal suppository (14 sources) Stimulant Laxative Start: 09-07-19 25 bisacodyl (DULCOLAX) 10 mg supp 1 suppository by RECTAL route once daily as needed. 09/06/2024 Active clobetasol propionate 0.5 mg/ml topical cream (1 source) Corticosteroid Start: 07-03-19 23 clobetasol 0.05 % Cream Applied to affected area twice a day till clear 60 g 3 07/02/2022 Active cloNIDine hydrochloride 0.1 mg oral tablet (6 sources) Central alpha-2 Adrenergic Agonist Start: 02-13-20 cloNIDine HCl (CATAPRES) 0.1 MG tablet clopidogrel 75 mg oral tablet (20 sources) P2Y12 Platelet Inhibitor Start: 11-09-19 24 take 1 tablet by mouth once daily Clopidogrel 75 mg tablet Active 75 mg PO DAILY November 09, 2023 12:00am Start: 02-10-2014 End: 07-02-2022 take 1 tablet by mouth once daily clopidogrel (PLAVIX) 75 mg tablet Take 1 tablet by mouth once daily. 30 tablet 0 02/10/2014 Active Comment on above: Take 1 tablet by consuelo th once daily. doxycycline monohydrate 100 mg oral tablet (1 source) Tetracycline-class Drug Start: End: take 1 tablet by mouth twice daily doxycycline monohydrate 100 mg tablet Indications: Sinobronchitis Take 1 tablet by mouth two times a day for 7 days. 14 tablet 04/10/2024 04/17/2024 Active ezetimibe 10 mg oral tablet (20 sources) Dietary Cholesterol Absorption Inhibitor Start: 6 ZETIA 10 mg tablet Start: 08-19-2006 End: 07-03-2023 take 1 tablet by mouth once daily ezetimibe (ZETIA) 10 mg ORAL Tab Take one(1) tablet daily. 0 08/19/2006 07/03/2023 Discontinued (Discontinued by another Health Care Provider) Comment on above: Take one(1) tablet d aily. ketoconazole 20 mg/ml medicated shampoo (12 sources) Azole Antifungal Start: 01-16-2021 End: 07-17-2021 ketoconazole 2 % Shampoo shampoo Indications: Dry scalp Apply 1 Application topically daily. Lather and wash face and ears, daily as needed. 120 mL 6 07/17/2021 Active Start: 07-03-2016 ketoconazole 2 % Shampoo USE DAILY NEEDED, USE LATHER TO WASH FACE AND EARS 9 07/03/2016 Active lisinopril 10 mg oral tablet (12 sources) Angiotensin Converting Enzyme Inhibitor take 1 tablet by mouth once daily lisinopril (ZESTRIL) 10 mg tablet Take 10 mg by mouth once daily. Active 24 hr metFORMIN hydrochloride 500 mg extended release oral tablet (2 sources) Biguanide Start: 6 metFORMIN (GLUCOPHAGE-XR) 500 MG 24 hr tablet 24 hr metoprolol succinate 100 mg extended release oral tablet (20 sources) beta-Adrenergic Edmund Start: 8 End: 5 take 1 tablet by mouth once daily Metoprolol Succinate 100 mg tablet extended release 24 hr Active 100 mg PO DAILY November 09, 2023 12:00am Start: 08-09-2015 TOPROL XL 100 mg 24 hr tablet Start: 08-09-2015 TOPROL XL 100 mg 24 hr tablet take 1 tablet by consuelo th twice daily metoprolol tartrate, short acting, (LOPRESSOR) 25 mg tablet Take 25 mg by mouth two times a day. Active Comment on above: Take 100 mg by mouth once daily. omeprazole 20 mg delayed release oral capsule (4 sources) Proton Pump Inhibitor Start: 03-08-2017 omeprazole (PRILOSEC) 20 MG capsule polyethylene glycol 3350 527897 mg / potassium chloride 2970 mg / sodium bicarbonate 6740 mg / sodium chloride 5860 mg / sodium sulfate 12053 mg powder for oral solution (3 sources) Osmotic Laxative Start: 02-06-2024 End: 02-06-2024 peg 3350-Electrolytes (GOLYTELY) 236-22.74-6.74 -5.86 gram suspension Indications: Polyp of colon, unspecified part of colon, unspecified type Take 4,000 mL by mouth one time only for 1 dose. Refer to printed prep instructions from your provider. 4000 mL 02/06/2024 02/06/2024 Active Start: 01-28-2024 End: 01-28-2024 peg 3350-Electrolytes (GOLYT VERENA) 236-22.74-6.74 -5.86 gram suspension Indications: Polyp of colon, unspecified part of colon, unspecified type Take 4,000 mL by mouth one time only for 1 dose. Refer to printed prep instructions from your provider. 4000 mL 01/28/2024 01/28/2024 Active Start: 12-05-2023 End: 12-05-2023 peg 3350-Electrolytes (GOLYT VERENA) 236-22.74-6.74 -5.86 gram suspension Indications: Encounter for screening for malignant neoplasm of colon , History of colonic polyps Take 4,000 mL by mouth one time only for 1 dose. Refer to printed prep instructions from your provider. 4000 mL 12/05/2023 12/05/2023 Active predniSONE 20 mg oral tablet (1 source) Start: 04-10-2024 End: 04-15-2024 take 2 tablets by mouth once daily predniSONE (DELTASONE) 20 mg tablet Indications: Sinobronchitis Take 2 tablets by mouth once daily for 5 days. 10 tablet 04/10/2024 04/15/2024 Active ramipril 10 mg oral capsule (20 sources) Angiotensin Converting Enzyme Inhibitor Start: 11-09-2023 take 1 capsule by mouth once daily Ramipril 10 mg capsule Active 10 mg PO DAILY November 09, 2023 12:00am Start: 02-13-2016 End: 07-02-2022 take 1 capsule by mouth once daily ramipril (Altace) 10 MG capsule Indications: Benign essential hypertension Take 1 capsule by mouth daily. 90 capsule 1 07/02/2022 Active Comment on above: Take 10 mg by mouth once daily. sildenafil 100 mg oral tablet (7 sources) Phosphodiesterase 5 Inhibitor Start: 01-28-20 18 sildenafil citrate (VIAGRA) 100 MG Tab tablet Indications: Impotence of organic origin Take 1 tablet by mouth as needed. 30 tablet 3 01/27/2018 Active tamsulosin hydrochloride 0.4 mg oral capsule (20 sources) alpha-Adrenergic Edmund Start: 11-09-19 24 take 1 capsule by mouth once daily Tamsulosin 0.4 mg capsule Active 0.4 mg PO DAILY November 09, 2023 12:00am Start: 03-21-2017 End: 07-17-2021 take 1 capsule by mouth once daily Tamsulosin HCl 0.4 MG capsule Indications: Frequency of urination Take 1 capsule by mouth daily. 90 capsule 1 07/17/2021 Active Comment on above: Take 0.4 mg by mouth once daily. Take 0.4 mg by mouth once daily. 3 or 4 time a week traMADol hydrochloride 50 mg oral tablet (7 sources) Opioid Agonist Start: 10-27-19 16 take 2 tablets by mouth three times daily traMADol 50 MG Tab take 100 mg by mouth 3 times daily as needed.. Reported on 07/16/2016 0 10/27/2015 Active triamcinolone acetonide 1 mg/ml topical cream (5 sources) Corticosteroid Start: 10-31-19 End: 11-07-19 triamcinolone acetonide (KENALOG) 0.1 % cream Apply 1 application to affected area three times daily for 7 days. Apply sparingly to area for rash/itching. 80 g 0 10/30/2021 11/06/2021 Active Start: 10-23-2016 End: 10-23-2016 triamcinolone acetonide (CANDICE ALOG-40) injection 20 mg Start: 10-23-2016 End: 10-23-2016 triamcinolone acetonide (CANDICE ALOG-40) injection 20 mg Start: 10-23-2016 End: 10-23-2016 triamcinolone acetonide (CANDICE ALOG-40) injection 20 mg 20 mg, Intra-articular, Once, 10/23/16 at 1845, For 1 dose, [facility] [place] 4489-2058-10 Start: 10-23-2016 End: 10-23-2016 triamcinolone acetonide (CANDICE ALOG-40) injection 20 mg 20 mg, Intra-articular, Once, 10/23/16 at 1845, For 1 dose, [facility] [place] 5179-3408-53 Comment on above: Apply 1 application to affected area three times daily for 7 days. Apply sparingly to area for rash/itching. Completed/Discontinued Medications Medication Drug Class(es) Dates Sig (Normalized) Sig (Original) ALPRAZolam 1 mg oral tablet (4 sources) Benzodiazepine Start: 11-01-2015 End: 04-14-2018 take 1 tablet by mouth every month ALPRAZolam 1 MG Tab take 1 mg by mouth.. Reported on 07/16/2016 11/01/2015 04/14/2018 Discontinued amLODIPine 10 mg oral tablet (20 sources) Dihydropyridine Calcium Channel Edmund Start: 07-22-2024 take 1 tablet by mouth once daily amLODIPine (NORVASC) 10 mg tablet Take 10 mg by mouth once daily. 07/22/2024 Suspended Start: 11-09-2023 take 1 tablet by consuelo th once daily Amlodipine 5 mg tablet Active 5 mg PO DAILY November 09, 2023 12:00am Start: 08-13-2015 End: 07-02-2022 take 1 tablet by mouth once daily amLODIPine (Norvasc) 5 MG tablet Indications: Benign essential hypertension Take 1 tablet by mouth daily. 90 tablet 1 07/02/2022 Active Comment on above: Take 5 mg by mouth o nce daily. bacitracin 0.5 unt/mg / polymyxin b 10 unt/mg topical ointment (7 sources) Polymyxin-class Antibacterial Start: End: bacitracin zinc-polymyxin B (POLYSPORIN) 500-10,000 unit/gram ointment Apply to affected area two times a day. 28 g 08/13/2024 08/27/2024 Discontinued (Discontinued by Patient) calcium chloride 0.0014 meq/ml / potassium chloride 0.004 meq/ml / sodium chloride 0.103 meq/ml / sodium lactate 0.028 meq/ml injectable solution (1 source) Start: End: take 30 mL intravenously every hour 30 mL/hr, INTRAVENOUS, CONTINUOUS, Starting on Sat12/23/23 at 0730, Until Sat12/23/23 at 0826, Preprocedure cephalexin 500 mg oral capsule (4 sources) Cephalosporin Antibacterial Start: End: take 1 capsule by mouth four times daily cephALEXin (KEFLEX) 500 mg capsule Take 1 capsule by mouth four times daily for 5 days. 20 capsule 08/20/2024 08/27/2024 Discontinued (Auto ) Start: 10-30-2021 End: 11-06-2021 take 1 capsule by mouth three times daily cephALEXin (KEFLEX) 500 mg capsule Take 1 capsule by mouth three times daily for 7 days. 21 capsule 0 10/30/2021 11/06/2021 Active Comment on above: Take 1 capsule by [facility] three times daily for 7 days. docusate sodium 50 mg / sennosides, senior care 8.6 mg oral tablet (17 sources) Start: 09-06-2024 End: 10-08-2024 take 2 tablets by mouth twice daily senna-docusate (SENNA-S) 8.6-50 mg per tablet 2 tablets by ORAL/FEEDING TUBE route two times a day. 09/06/2024 10/08/2024 Discontinued Start: 08-13-2024 End: 08-28-2024 take 2 tablets by mouth twice daily senna-docusate (SENNA-S) 8.6-50 mg per tablet 2 tablets by ORAL/FEEDING TUBE route two times a day for 15 days. 60 tablet 08/13/2024 08/28/2024 Active famotidine 20 mg oral tablet (8 sources) Histamine-2 Receptor Antagonist End: 10-08-2024 take 1 tablet by mouth twice daily famotidine (PEPCID) 20 mg tablet Take 20 mg by mouth two times a day. 10/08/2024 Discontinued 1 ml fentaNYL 0.05 mg/ml injection (1 source) Opioid Agonist Start: 12-23-2023 End: 12-23-2023 25-100 mcg, INTRAVENOUS, DIRECTED, Starting on Sat12/23/23 at 0800, Until Sat12/23/23 at 1159, DOSING DIRECTED BY PHYSICIAN FOR PROCEDURAL SEDATION ONLY, Intraprocedure fluorouracil 50 mg/ml topical cream (7 sources) Nucleoside Metabolic Inhibitor Start: 07-16-2024 End: 08-27-2024 Fluorouracil 5 % cream APPLY THIN LAYER TO AFFECTED AREAS TWICE A DAY FOR 2 WEEKS. WASH HANDS IMMEDIATELY AFTER EACH APPLICATION 07/16/2024 08/27/2024 Discontinued 1 ml heparin sodium, porcine 5000 unt/ml injection (10 sources) Unfractionated Heparin, Anti-coagulant Start: 09-06-2024 End: 10-08-2024 inject 1 mL by subcutaneous injection every eight hours heparin 5,000 unit/mL injection Inject 1 mL subcutaneously every 8 hours. 09/06/2024 10/08/2024 Discontinued levETIRAcetam 500 mg oral tablet (19 sources) Start: 09-06-2024 End: 10-08-2024 take 1 tablet by mouth twice daily levETIRAcetam (KEPPRA) 500 mg tablet 1 tablet by ORAL/FEEDING TUBE route two times a day. 09/06/2024 10/08/2024 Discontinued Start: 08-27-2024 take 1 tablet by consuelo th twice daily levETIRAcetam (KEPPRA) 500 mg tablet Indications: Subdural hematoma (HCC) Take 1 tablet by mouth two times a day. 60 tablet 08/27/2024 Suspended Start: 08-13-2024 End: 08-27-2024 take 1 tablet by mouth twice daily levETIRAcetam (KEPPRA) 1,000 mg tablet Take 1 tablet by mouth two times a day for 22 doses. 22 tablet 08/13/2024 08/27/2024 Discontinued (Auto ) miconazole nitrate 0.02 mg/mg topical powder (2 sources) Azole Antifungal Start: 09-06-2024 End: 09-17-2024 miconazole 2 % powder Apply 1 application to affected area two times a day. 09/06/2024 09/17/2024 Discontinued 5 ml midazolam 1 mg/ml injection (1 source) Benzodiazepine Start: 12-23-2023 End: 12-23-2023 1-5 mg, INTRAVENOUS, DIRECTED, Starting on Sat12/23/23 at 0800, Until Sat12/23/23 at 1159, DOSING DIRECTED BY PHYSICIAN FOR PROCEDURAL SEDATION ONLY, Intraprocedure rosuvastatin calcium 10 mg oral tablet (20 sources) HMG-CoA Reductase Inhibitor Start: 09-06-2024 End: 09-17-2024 take 1 tablet by mouth once daily at bedtime rosuvastatin (CRESTOR) 10 mg tablet 1 tablet by ORAL/FEEDING TUBE route daily at bedtime. 90 tablet 09/06/2024 09/17/2024 Discontinued Start: 11-09-2023 take 1 tablet by [facility] once daily rosuvastatin (CRESTOR) 10 mg tablet Take 10 mg by mouth once daily. 07/13/2024 Active Start: 02-13-2016 End: 07-02-2022 take 1 tablet by mouth once daily Rosuvastatin (Crestor) 5 MG tablet Indications: Mixed hyperlipidemia Take 1 tablet by mouth daily. 90 tablet 1 07/02/2022 Active take 2 tablets by mo [facility] once daily rosuvastatin (CRESTOR) 5 mg tablet Take 10 mg by mouth once daily. Active End: 03-19-2017 ROSUVASTATIN CALCIUM (CRESTO R ORAL) Take by mouth. 03/19/2017 Discontinued ROSUVASTATIN LORENZO CIUM (CRESTOR ORAL) Take by mouth. Active Comment on above: Take 5 mg by mouth o nce daily. Take 10 mg by mouth once daily. vardenafil 20 mg oral tablet (20 sources) Phosphodiesterase 5 Inhibitor Start: 05-28-19 End: 09-18-19 take 1 tablet by mouth once daily as needed Vardenafil HCl 20 mg tablet TAKE 1 TABLET BY MOUTH DAILY NEEDED PRIOR TO SEX 05/27/2024 09/17/2024 Discontinued Start: 01-16-2021 End: 01-01-2022 take 1 tablet by mouth once daily as needed vardenafil 20 MG tablet Indications: Impotence of organic origin Take 1 tablet by mouth daily as needed. Maximum recommended dose per day is 20 mg. 10 tablet 3 07/17/2021 01/01/2022 Discontinued Problems Active Problems Problem Classification Problem Date Documented Da te Episodic/Chronic Acute cerebrovascular disease (20 sources) Hematoma of subdural space of neuraxis; Translations: [Subdural hematoma (HCC)] Onset: 5 08-09-2024 Chronic Administrative/social admission (10 sources) Other reduced mobility; Translations: [Other specified conditions influencing health status] Onset: 5 09-30-2024 Episodic Cardiac dysrhythmias (20 sources) Atrial fibrillation; Translations: [Unspecified atrial fibrillation] Onset: 4 Resolved: 4 07-04-2023 Chronic Cataract (20 sources) Nuclear sclerotic cataract; Translations: [Age-related nuclear cataract, right eye] Onset: 5 10-12-2014 Chronic Chronic kidney disease (20 sources) Chronic kidney disease stage 2; Translations: [Chronic kidney disease, stage 2 (mild)] Onset: 4 08-09-2024 Chronic Conditions associated with dizziness or vertigo (20 sources) Dizziness; Translations: [Dizziness and giddiness] Onset: 5 08-09-2024 Episodic Coronary atherosclerosis and other heart disease (20 sources) Coronary atherosclerosis; Translations: [Disorder of coronary artery] Onset: 4 01-16-2017 Chronic Deficiency and other anemia (2 sources) Anemia, unspecified; Translations: [Anemia, unspecified] Onset: Episodic Diabetes mellitus with complications (15 sources) Diabetic - poor control; Translations: [Type 2 diabetes mellitus with hyperglycemia] Onset: 5 08-31-2024 Chronic Diabetes mellitus without complication (20 sources) Diabetes mellitus; Translations: [Type 2 diabetes mellitus without complications] Onset: 4 08-09-2024 Chronic Disorders of lipid metabolism (20 sources) Hyperlipidemia; Translations: [Mixed hyperlipidemia] Onset: 4 01-16-2017 Chronic E Codes: Fall (17 sources) Fall (on) (from) unspecified stairs and steps, initial encounter; Translations: [Accidental fall on or from other stairs or steps] Onset: 5 06-27-2024 Episodic Epilepsy; convulsions (7 sources) Neurological finding; Translations: [Unspecified convulsions] Onset: 5 08-30-2024 Episodic Essential hypertension (20 sources) Essential hypertension; Translations: [Benign essential hypertension] Onset: 4 01-16-2017 Chronic Gastrointestinal hemorrhage (1 source) Gastrointestinal hemorrhage; Translations: [Hemorrhage of anus and rectum] 12-05-2023 Episodic Heart valve disorders (15 sources) History of aortic valve replacement; Translations: [Presence of other heart-valve replacement] Onset: 5 09-02-2024 Chronic Hepatitis (20 sources) Chronic hepatitis; Translations: [Chronic hepatitis, unspecified] Onset: 7 08-29-2006 Chronic Intracranial injury (15 sources) Traumatic brain injury; Translations: [TBI (traumatic brain injury)] Onset: 5 09-02-2024 Episodic Neoplasms of unspecified nature or uncertain behavior (11 sources) Neoplastic disease of uncertain behavior; Translations: [Neoplasm of uncertain behavior, unspecified] 01-16-2017 Episodic Nonspecific chest pain (11 sources) Chest wall pain; Translations: [Other chest pain] 01-16-2017 Episodic Osteoarthritis (12 sources) Osteoarthritis; Translations: [Osteoarthritis of knee] Onset: 4 01-16-2017 Chronic Other aftercare (2 sources) Wound ; Translations: [Encounter for other specified surgical aftercare] 08-20-2024 Episodic Other aftercare (1 source) Encounter for other specified surgical aftercare; Translations: [Encounter for post surgical wound check] Onset: Episodic Other and unspecified benign neoplasm (4 sources) Polyp of colon; Translations: [Polyp of colon] 01-28-2024 Episodic Other and unspecified benign neoplasm (1 source) Polyp of colon; Translations: [Polyp of colon, unspecified part of colon, unspecified type] Onset: 5 Episodic Other circulatory disease (7 sources) Disorder of coronary artery; 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] Onset: 7 01-16-2017 Chronic Other circulatory disease (1 source) History of aortic arch replacement; Translations: [Presence of other vascular implants and grafts] 10-15-2023 Chronic Other circulatory disease (1 source) Presence of other vascular implants and grafts; Translations: [H/O aortic arch replacement] Onset: 4 Chronic Other circulatory disease (1 source) H/O: cardiovascular disease; Translations: [Personal history of other diseases of the circulatory system] 11-17-2023 Episodic Other connective tissue disease (11 sources) Pain in limb; Translations: [Paresthesia of skin] 01-16-2017 Episodic Other connective tissue disease (11 sources) Biceps tendinitis; Translations: [Bicipital tendinitis, unspecified shoulder] 01-16-2017 Episodic Other eye disorders (20 sources) Vitreous floaters; Translations: [Other vitreous opacities, unspecified eye] Onset: 5 10-12-2014 Chronic Other eye disorders (20 sources) Optic cupping; Translations: [Glaucomatous optic atrophy, bilateral] Onset: 5 10-12-2014 Chronic Other injuries and conditions due to external causes (2 sources) Injury of left foot; Translations: [Unspecified injury of left foot, initial encounter] 06-27-2024 Episodic Other injuries and conditions due to external causes (1 source) Unspecified injury of left foot, initial encounter; Translations: [Foot injury, left, initial encounter] Onset: 5 Episodic Other injuries and conditions due to external causes (1 source) Unspecified injury of head, sequela; 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] Onset: 5 Episodic Other injuries and conditions due to external causes (1 source) Unspecified injury of head, subsequent encounter; Translations: [Injury of head, subsequent encounter] Onset: 5 Episodic Other lower respiratory disease (7 sources) Lung mass; Translations: [Lung nodule] 01-16-2017 Episodic Other lower respiratory disease (4 sources) Nodule of lung; Translations: [Solitary pulmonary nodule] 01-16-2017 Episodic Other lower respiratory disease (1 source) Cough; Translations: [Acute cough] 04-10-2024 Episodic Other male genital disorders (7 sources) Impotence of organic origin; Translations: [Impotence of organic origin] Onset: 9 01-16-2017 Chronic Other male genital disorders (6 sources) Secondary erectile dysfunction; Translations: [Male erectile dysfunction, unspecified] Onset: 9 Chronic Other male genital disorders (2 sources) Male erectile dysfunction, unspecified; Translations: [Male erectile dysfunction, unspecified] Onset: 7 Chronic Other nervous system disorders (20 sources) Compression of brain; 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] Onset: 5 08-09-2024 Chronic Other nervous system disorders (20 sources) Cerebral herniation; 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] Onset: 5 08-09-2024 Chronic Other nervous system disorders (20 sources) Pneumocephalus; 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] Onset: 5 08-12-2024 Chronic Other nervous system disorders (15 sources) Cognitive communication disorder; Translations: [Cognitive communication deficit] Onset: 5 09-21-2024 Chronic Other nervous system disorders (1 source) Cognitive communication deficit; 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] Onset: 5 Chronic Other nervous system disorders (1 source) Compression of brain; Translations: [Brain compression (HCC)] Onset: 5 Chronic Other nervous system disorders (20 sources) Abnormal gait; Translations: [Unsteadiness on feet] Onset: 5 08-09-2024 Episodic Other nervous system disorders (2 sources) Unspecified abnormalities of gait and mobility; Translations: [Abnormality of gait] Onset: 5 Episodic Other non-traumatic joint disorders (20 sources) Chronic pain of left upper limb; Translations: [Pain in left shoulder] Onset: 5 08-09-2024 Episodic Other nutritional; endocrine; and metabolic disorders (15 sources) Decrease in appetite; Translations: [Anorexia] Onset: 5 09-02-2024 Episodic Other skin disorders (2 sources) Disorder of scalp; Translations: [Other skin changes] Episodic Other upper respiratory infections (1 source) Chronic sinusitis; Translations: [Chronic sinusitis, unspecified] 04-10-2024 Chronic Otitis media and related conditions (1 source) Dysfunction of right eustachian tube; Translations: [Other specified disorders of Eustachian tube, right ear] Episodic Residual codes; unclassified (1 source) History of repair of ascending aorta; Translations: [Other specified postprocedural states] 10-15-2023 Episodic Residual codes; unclassified (8 sources) Pain; Translations: [Pain, unspecified] 06-23-2024 Episodic Residual codes; unclassified (20 sources) Tobacco user; Translations: [Tobacco use] Onset: 5 08-09-2024 Episodic Residual codes; unclassified (1 source) Pain, unspecified; Translations: [Pain] Onset: Episodic Residual codes; unclassified (2 sources) Other specified postprocedural states; Translations: [S/P ascending aortic aneurysm repair] Onset: Episodic Residual codes; unclassified (2 sources) History of craniotomy; Translations: [Other specified postprocedural states] 10-03-2024 Episodic Residual codes; unclassified (1 source) Altered mental status, unspecified; Translations: [Altered mental status, unspecified altered mental status type] Onset: Episodic Retinal detachments; defects; vascular occlusion; and retinopathy (20 sources) 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; Translations: [Nonexudative age-related macular degeneration, left eye, stage unspecified] Onset: 5 10-12-2014 Chronic Skin and subcutaneous tissue infections (1 source) Infection of skin; Translations: [Local infection of the skin and subcutaneous tissue, unspecified] Episodic Spondylosis; intervertebral disc disorders; other back problems (11 sources) Acute low back pain; Translations: [Acute low back pain] 01-16-2017 Episodic Sprains and strains (3 sources) Sprain of left hand; Translations: [Sprain of unspecified part of left wrist and hand, initial encounter] 01-28-2023 Episodic Substance-related disorders (20 sources) Nicotine dependence, unspecified, uncomplicated; Translations: [Tobacco use disorder] Onset: 5 08-11-2024 Chronic Unclassified (14 sources) Patient encounter status; Translations: [Screening for malignant neoplasm of the rectum] 01-16-2017 Unclassified (20 sources) SUMMARY Onset: 4 Unclassified (20 sources) Cataract of posterior subcapsule of left eye; Translations: [PSC (posterior subcapsular cataract), left] Onset: 5 10-12-2014 Unclassified (1 source) History of colonic polyps; Translations: [History of colonic polyps] Onset: 4 Unclassified (1 source) Dissecting aneurysm of thoracic aorta, [place]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); Translations: [Dissecting aneurysm of thoracic aorta, [place]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)] Onset: 1 Unclassified (1 source) SDH (subdural hematoma) (HCC); Translations: [SDH (subdural hematoma) (HCC)] Onset: 5 Past or Other Problems Problem Classification Problem Date Documented Date Episodic/Chronic Abdominal pain (2 sources) Abdominal pain; Translations: [Unspecified abdominal pain] Onset: 12-04-2023 11-17-2023 Episodic Aortic; peripheral; and visceral artery aneurysms (20 sources) Dissection of thoracic aorta; Translations: [Dissection of thoracic aorta] Onset: 01-29-2014 Resolved: 08-10-2024 11-23-2022 Chronic Cardiac dysrhythmias (20 sources) Sinus bradycardia; Translations: [Bradycardia, unspecified] Onset: 12-09-2017 12-09-2017 Episodic Diabetes mellitus without complication (20 sources) Hyperglycemia; Translations: [Hyperglycemia, unspecified] Onset: 02-04-2014 Episodic Fluid and electrolyte disorders (20 sources) Hypervolemia; Translations: [Fluid overload, unspecified] Onset: 02-05-2014 Episodic Genitourinary symptoms and ill-defined conditions (4 sources) Increased frequency of urination; Translations: [Frequency of micturition] Onset: 01-01-2022 Episodic Other aftercare (20 sources) Wound finding; Translations: [Encounter for other specified aftercare] Onset: 03-29-2014 03-29-2014 Episodic Other and unspecified benign neoplasm (20 sources) History of polyp of colon; Translations: [Personal history of colonic polyps] Onset: 12-23-2023 12-05-2023 Episodic Other circulatory disease (1 source) Personal history of other diseases of the circulatory system; Translations: [S/P ascending aortic aneurysm repair] Onset: 10-16-2023 Episodic Other connective tissue disease (1 source) Pain in right leg; Translations: [Pain in right leg] Onset: 04-27-2024 Episodic Other nervous system disorders (20 sources) Postoperative pain ; Translations: [Other acute postprocedural pain] Onset: 02-05-2014 Episodic Other skin disorders (2 sources) Other skin changes; Translations: [Other skin changes] Onset: 01-01-2022 Episodic Pleurisy; pneumothorax; pulmonary collapse (20 sources) Atelectasis; Translations: [Atelectasis] Onset: 02-05-2014 Episodic Residual codes; unclassified (20 sources) Confusional state; Translations: [Disorientation, unspecified] Onset: 02-06-2014 Episodic Residual codes; unclassified (20 sources) History of great vessel repair; Translations: [Other specified postprocedural states] Onset: 02-18-2019 02-18-2019 Episodic Unclassified (20 sources) MRI of lumbar spine abnormal; Translations: [Blood chemistry abnormal] Onset: 09-03-2005 01-16-2017 Episodic Unclassified (3 sources) Injury of left foot 06-27-2024 Unclassified (1 source) Impaired functional mobility, balance, gait, and endurance 09-30-2024 Results Test Name Value Interpretation Reference Range Facility CNTHERAPYon 10-26-2024 CNTHERAPY Normal [facility] THERAPY NTon 10-26-2024 THERAPY NT Normal [facility] CNTHERAPYon 10-21-2024 CNTHERAPY Normal [facility] THERAPY NTon 10-21-2024 THERAPY NT Normal [facility] Ferritinon 10-14-2024 Ferritin [Mass/Vol] 123 ng/mL Normal 37-417 [facility] Comment on above: Order Comment: BEN Moulton ADD B12 ROBERT IBC TO BLOOD DRAWN 10/13/24 PERDRMADDISONOrder Date: 10/13/24Order Info: [id number] - CMPOrder Info: [id number] - LIPIDOrder Info: [id number] - MG Performed By: #### L 503.6030, L400.0001, L503.0106, L503.6550 ####[facility] [address] [place], [address] Iron+Iron Binding Capacityon 10-14-2024 TIBC 223 ug/dL Low 250-450 [facility] Comment on above: Order Comment: BEN [place] ADD B12 ROBERT IBC TO BLOOD DRAWN 10/13/24 PERDR.SCHINNEROrder Date: 10/13/24Order Info: [id number] - CMPOrder Info: [id number] - LIPIDOrder Info: [id number] - MG Performed By: #### L 503.6030, L400.0001, L503.0106, L503.6550 ####[facility] [address] [place], [address] Vitamin B12on 10-14-2024 Cobalamin (Vitamin B12) [Mass/Vol] 491 pg/mL Normal 180-914 [facility] Comment on above: Order Comment: BEN Moul[place] ADD B12 ROBERT IBC TO BLOOD DRAWN 10/13/24 PERDR.SCHINNEROrder Date: 10/13/24Order Info: [id number] - CMPOrder Info: [id number] - LIPIDOrder Info: [id number] - MG Performed By: #### L 503.6030, L400.0001, L503.0106, L503.6550 ####[facility] [address] [place], [place], [address] Absolute lymphocyte countOrd ered By: Edson Baptiste on 10-13-2024 Lymphocytes Auto (Unsp spec) [#/Vol] 1.37 10*3/uL 0.83-4.51 [facility] Absolute neutrophil countOrd ered By: Edson Baptiste on 10-13-2024 Neutrophils (Bld) [#/Vol] 4.7 10*3/uL 2.0-7.7 [facility] Anion gap in Serum or Plasma Ordered By: Edson Baptiste on 10-13-2024 Anion gap [Moles/Vol] 12 mmol/L 5-15 [facility] Automated lymphocyte count a s percentage of total leukocytesOrdered By: Edson Baptiste on 10-13-2024 Lymphocytes/100 WBC Auto (Unsp spec) 20.0 % - [facility] BUN/creatinine ratioOrdered By: Edson Baptiste on 10-13-2024 Urea nitrogen/Creatinine [Mass ratio] 14.0 mg/mg 10-20 [facility] Basophil percentageOrdered B y: Edson Baptiste on 10-13-2024 Basophils/100 WBC (Bld) 0.9 % 0-1 [facility] Bilirubin Test strip Ql (U)O rdered By: Edson Baptiste on 10-13-2024 Bilirubin Ql (U) Negative Negative [facility] Bilirubin, totalOrdered By: Edson Baptiste on 10-13-2024 Bilirubin [Mass/Vol] 0.35 mg/dL 0.00-1.30 [facility] CBC W/Diff, Automatedon 09-16 Absolute Lymph 1.37 X10 3/uL Normal 0.83-4.51 [facility] Comment on above: Order Comment: Order Date: 10/13/24Order Info: [id number] - CBCD Performed By: #### L 501.5200, L500.4100, L500.4050, L100.0100 ####[facility] [address] [place], [place], [phone] Absolute Neut 4.7 X10 3/uL Normal 2.0-7.7 [facility] Comment on above: Order Comment: Order Date: 10/13/24Order Info: [id number] - CBCD Performed By: #### L 501.5200, L500.4100, L500.4050, L100.0100 ####[facility] [address] [place], [address] Basophils/100 WBC (Bld) 0.9 % Normal 0-1 [facility] Comment on above: Order Comment: Order Date: 10/13/24Order Info: [id number] - CBCD Performed By: #### L 501.5200, L500.4100, L500.4050, L100.0100 ####[facility] [address] [place], [address] Eosinophils/100 WBC (Bld) 4.2 % Normal 0-5 [facility] Comment on above: Order Comment: Order Date: 10/13/24Order Info: [id number] - CBCD Performed By: #### L 501.5200, L500.4100, L500.4050, L100.0100 ####[facility] [address] [place], [address] Erythrocyte distribution width (RBC) [Ratio] 13.4 % Normal 11.6-14.6 [facility] Comment on above: Order Comment: Order Date: 10/13/24Order Info: [id number] - CBCD Performed By: #### L 501.5200, L500.4100, L500.4050, L100.0100 ####[facility] [address] [place], [address] Hematocrit (Bld) [Volume fraction] 38.0 % Low 40-54 [facility] Comment on above: Order Comment: Order Date: 10/13/24Order Info: [id number] - CBCD Performed By: #### L 501.5200, L500.4100, L500.4050, L100.0100 ####[facility] [address] [place], [address] Hemoglobin (Bld) [Mass/Vol] 12.1 g/dL Low 13.0-16.5 [facility] Comment on above: Order Comment: Order Date: 10/13/24Order Info: [id number] - CBCD Performed By: #### L 501.5200, L500.4100, L500.4050, L100.0100 ####[facility] [address] [place], [address] IG% 0.400 Normal 0.0-0.9 [facility] Comment on above: Order Comment: Order Date: 10/13/24Order Info: [id number] - CBCD Result Comment: IG% - Immature Granulocytes (promyelocytes, myelocytes and metamyelocytes) > 1% indicates that a LEFT SHIFT is Present. Performed By: #### L 501.5200, L500.4100, L500.4050, L100.0100 ####[facility] [address] [place], [address] Lymphocytes/100 WBC (Bld) 20.0 % Normal 19-41 [facility] Comment on above: Order Comment: Order Date: 10/13/24Order Info: [id number] - CBCD Performed By: #### L 501.5200, L500.4100, L500.4050, L100.0100 ####[facility] [address] [place], [address] MCH (RBC) [Entitic mass] 29.2 pg Normal 27.0-32.0 [facility] Comment on above: Order Comment: Order Date: 10/13/24Order Info: [id number]- - CBCD Performed By: #### L 501.5200, L500.4100, L500.4050, L100.0100 ####[facility] [address] [place], [address] MCHC (RBC) [Mass/Vol] 31.8 g/dL Low 32-36 [facility] Comment on above: Order Comment: Order Date: 10/13/24Order Info: [id number] - CBCD Performed By: #### L 501.5200, L500.4100, L500.4050, L100.0100 ####[facility] [address] [place], [address] MCV (RBC) [Entitic vol] 91.8 fL Normal 80-94 [facility] Comment on above: Order Comment: Order Date: 10/13/24Order Info: [id number] - CBCD Performed By: #### L 501.5200, L500.4100, L500.4050, L100.0100 ####[facility] [address] [place], [address] Monocytes/100 WBC (Bld) 6.0 % Normal 0-10 [facility] Comment on above: Order Comment: Order Date: 10/13/24Order Info: [id number] - CBCD Performed By: #### L 501.5200, L500.4100, L500.4050, L100.0100 ####[facility] [address] [place], [address] Neutrophils/100 WBC (Bld) 68.5 % Normal 47-70 [facility] Comment on above: Order Comment: Order Date: 10/13/24Order Info: [id number] - CBCD Performed By: #### L 501.5200, L500.4100, L500.4050, L100.0100 ####[facility] [address] [place], [address] Nucleated RBC (Bld) [#/Vol] 0 10*3/uL Normal 0-5 [facility] Comment on above: Order Comment: Order Date: 10/13/24Order Info: [id number] - CBCD Performed By: #### L 501.5200, L500.4100, L500.4050, L100.0100 ####[facility] [address] [place], [address] Platelet mean volume (Bld) [Entitic vol] 9.6 fL Normal 6.2-12.0 [facility] Comment on above: Order Comment: Order Date: 10/13/24Order Info: [id number] - CBCD Performed By: #### L 501.5200, L500.4100, L500.4050, L100.0100 ####[facility] [address] [place], [address] Platelets (Bld) [#/Vol] 195 10*3/uL Normal 150-450 [facility] Comment on above: Order Comment: Order Date: 10/13/24Order Info: [id number] - CBCD Performed By: #### L 501.5200, L500.4100, L500.4050, L100.0100 ####[facility] [address] [place], [address] RBC (Bld) [#/Vol] 4.14 10*6/uL Low 4.6-6.2 [facility] Comment on above: Order Comment: Order Date: 10/13/24Order Info: [id number] - CBCD Performed By: #### L 501.5200, L500.4100, L500.4050, L100.0100 ####[facility] [address] [place], [address] RDW SD 45.4 fl High 35.1-43.9 [facility] Comment on above: Order Comment: Order Date: 10/13/24Order Info: [id number]- - CBCD Performed By: #### L 501.5200, L500.4100, L500.4050, L100.0100 ####[facility] [address] [place], [address] WBC (Bld) [#/Vol] 6.9 10*3/uL Normal 4.4-11.0 [facility] Comment on above: Order Comment: Order Date: 10/13/24Order Info: [id number] - CBCD Performed By: #### L 501.5200, L500.4100, L500.4050, L100.0100 ####[facility] [address] [place], [address] CNPNon 10-13-2024 [facility] Calculated very low density lipoprotein (VLDL) cholesterol measurementOrdered By: Edson Baptiste on 10-13-2024 Calculated very low density lipoprotein (VLDL) cholesterol measurement 27 mg/dL 5-40 [facility] Carbon dioxide, total [Moles /volume] in Central venous bloodOrdered By: Edson Baptiste on 10-13-2024 CO2 [Moles/Vol] 24.4 mmol/L 21.0-32.0 [facility] Chloride assayOrdered By: Viviana Baptiste on 10-13-2024 Chloride [Moles/Vol] 105 mmol/L 98-108 [facility] Comprehensive Metabolic Prof ilon 10-13-2024 Albumin [Mass/Vol] 4.1 g/dL Normal 3.4-4.8 [facility] Comment on above: Order Comment: Order Date: 10/13/24Order Info: [id number]- - CMPOrder Info: [id number] - LIPIDOrder Info: [id number] - MG Performed By: #### L 501.5200, L500.4100, L500.4050, L100.0100 ####[facility] [address] [place], [address] Albumin/Globulin [Mass ratio] 1.6 {ratio} Normal 0.9-2.4 [facility] Comment on above: Order Comment: Order Date: 10/13/24Order Info: [id number] - CMPOrder Info: [id number] - LIPIDOrder Info: [id number] - MG Performed By: #### L 501.5200, L500.4100, L500.4050, L100.0100 ####[facility] [address] [place], [address] ALK PHOS 50 U/L Normal 40-129 [facility] Comment on above: Order Comment: Order Date: 10/13/24Order Info: [id number] - CMPOrder Info: [id number] - LIPIDOrder Info: [id number] - MG Performed By: #### L 501.5200, L500.4100, L500.4050, L100.0100 ####[facility] [address] [place], [address] ALT [Catalytic activity/Vol] 10 U/L Normal <=46 [facility] Comment on above: Order Comment: Order Date: 10/13/24Order Info: [id number] - CMPOrder Info: [id number] - LIPIDOrder Info: [id number] - MG Performed By: #### L 501.5200, L500.4100, L500.4050, L100.0100 ####[facility] [address] [place], [address] AST [Catalytic activity/Vol] 16 U/L Normal <=37 [facility] Comment on above: Order Comment: Order Date: 10/13/24Order Info: [id number] - CMPOrder Info: [id number] - LIPIDOrder Info: [id number] - MG Performed By: #### L 501.5200, L500.4100, L500.4050, L100.0100 ####[facility] [address] [place], [address] Bilirubin [Mass/Vol] 0.35 mg/dL Normal 0.00-1.30 [facility] Comment on above: Order Comment: Order Date: 10/13/24Order Info: [id number] - CMPOrder Info: [id number] - LIPIDOrder Info: [id number] - MG Performed By: #### L 501.5200, L500.4100, L500.4050, L100.0100 ####[facility] [address] [place], [address] BUN/CRE 14.0 RATIO Normal 10-20 [facility] Comment on above: Order Comment: Order Date: 10/13/24Order Info: [id number]- - CMPOrder Info: [id number] - LIPIDOrder Info: [id number] - MG Performed By: #### L 501.5200, L500.4100, L500.4050, L100.0100 ####[facility] [address] [place], [address] Calcium [Mass/Vol] 9.8 mg/dL Normal 7.6-11.0 [facility] Comment on above: Order Comment: Order Date: 10/13/24Order Info: [id number] - CMPOrder Info: [id number] - LIPIDOrder Info: [id number] - MG Performed By: #### L 501.5200, L500.4100, L500.4050, L100.0100 ####[facility] [address] [place], [address] Chloride [Moles/Vol] 105 mmol/L Normal 98-108 [facility] Comment on above: Order Comment: Order Date: 10/13/24Order Info: [id number] - CMPOrder Info: [id number] - LIPIDOrder Info: [id number] - MG Performed By: #### L 501.5200, L500.4100, L500.4050, L100.0100 ####[facility] [address] [place], [address] CO2 [Moles/Vol] 24.4 mmol/L Normal 21.0-32.0 [facility] Comment on above: Order Comment: Order Date: 10/13/24Order Info: [id number] - CMPOrder Info: [id number] - LIPIDOrder Info: - MG Performed By: #### L 501.5200, L500.4100, L500.4050, L100.0100 ####[facility] [address] [place], [address] Creatinine [Mass/Vol] 1.34 mg/dL High 0.70-1.20 [facility] Comment on above: Order Comment: Order Date: 10/13/24Order Info: [id number] - CMPOrder Info: [id number] - LIPIDOrder Info: [id number] - MG Performed By: #### L 501.5200, L500.4100, L500.4050, L100.0100 ####[facility] [address] [place], [address] GAP 12 Normal 5-15 [facility] Comment on above: Order Comment: Order Date: 10/13/24Order Info: [id number] - CMPOrder Info: [id number] - LIPIDOrder Info: [id number] - MG Performed By: #### L 501.5200, L500.4100, L500.4050, L100.0100 ####[facility] [address] [place], [address] GFR/1.73 sq M.predicted among non-blacks MDRD (S/P/Bld) [Vol rate/Area] 53 mL/min/{1.73_m2} Low >60 [facility] Comment on above: Order Comment: Order Date: 10/13/24Order Info: [id number] - CMPOrder Info: [id number] - LIPIDOrder Info: [id number] - MG Result Comment: mL/m in/1.73m2 CKD-EPI Creatinine Equation (2020) Performed By: #### L 501.5200, L500.4100, L500.4050, L100.0100 ####[facility] [address] [place], [address] Globulin (S) [Mass/Vol] 2.6 g/dL Normal 2.2-4.2 [facility] Comment on above: Order Comment: Order Date: 10/13/24Order Info: [id number] - CMPOrder Info: [id number] - LIPIDOrder Info: [id number] - MG Performed By: #### L 501.5200, L500.4100, L500.4050, L100.0100 ####[facility] [address] [place], [address] Glucose [Mass/Vol] 94 mg/dL Normal 70-99 [facility] Comment on above: Order Comment: Order Date: 10/13/24Order Info: [id number] - CMPOrder Info: [id number] - LIPIDOrder Info: [id number] - MG Performed By: #### L 501.5200, L500.4100, L500.4050, L100.0100 ####[facility] [address] [place], [address] Potassium [Moles/Vol] 4.5 mmol/L Normal 3.3-5.1 [facility] Comment on above: Order Comment: Order Date: 10/13/24Order Info: [id number] - CMPOrder Info: [id number] - LIPIDOrder Info: [id number] - MG Performed By: #### L 501.5200, L500.4100, L500.4050, L100.0100 ####[facility] [address] [place], [address] Sodium [Moles/Vol] 141 mmol/L Normal 133-145 [facility] Comment on above: Order Comment: Order Date: 10/13/24Order Info: [id number] - CMPOrder Info: [id number] - LIPIDOrder Info: [id number] - MG Performed By: #### L 501.5200, L500.4100, L500.4050, L100.0100 ####[facility] [address] [place], [address] T PROT 6.7 g/dL Normal 5.9-8.4 [facility] Comment on above: Order Comment: Order Date: 10/13/24Order Info: [id number] - CMPOrder Info: [id number] - LIPIDOrder Info: [id number] - MG Performed By: #### L 501.5200, L500.4100, L500.4050, L100.0100 ####[facility] [address] [place], [address] Urea nitrogen [Mass/Vol] 19 mg/dL Normal 4-19 [facility] Comment on above: Order Comment: Order Date: 10/13/24Order Info: [id number] - CMPOrder Info: [id number] - LIPIDOrder Info: [id number] - MG Performed By: #### L 501.5200, L500.4100, L500.4050, L100.0100 ####[facility] [address] [place], [address] Eosinophil percentageOrdered By: Edson Baptiste on 10-13-2024 Eosinophils/100 WBC (Bld) 4.2 % 0-5 [facility] Erythrocyte distribution wid th ratioOrdered By: Edson Baptiste on 10-13-2024 Erythrocyte distribution width (RBC) [Ratio] 13.4 % 11.6-14.6 [facility] Erythrocyte distribution wid th standard deviationOrdered By: Edson Baptiste on 10-13-2024 Erythrocyte distribution width (RBC) [Ratio] 45.4 fl High 35.1-43.9 [facility] Glomerular filtration rate ( GFR) estimation/1.73 sq m using serum, plasma, or whole bOrdered By: Edson Baptiste on 10-13-2024 GFR/1.73 sq M.predicted among non-blacks MDRD (S/P/Bld) [Vol rate/Area] 53 mL/min/{1.73_m2} Low >60 [facility] Comment on above: mL/min/1.73m2 CKD-EP I Creatinine Equation (2020) Hematocrit Auto (Bld) [Volum e fraction]Ordered By: Edson Baptiste on 10-13-2024 Hematocrit (Bld) [Volume fraction] 38.0 % Low 40-54 [facility] Hemoglobin measurementOrdere d By: Edson Baptiste on 10-13-2024 Hemoglobin (Bld) [Mass/Vol] 12.1 g/dL Low 13.0-16.5 [facility] Immature granulocytes/100 WB C Auto (Bld)Ordered By: Edson Baptiste on 10-13-2024 Immature granulocytes/100 WBC (Bld) 0.400 % 0.0-0.9 [facility] Comment on above: IG% - Immature Granu locytes (promyelocytes, myelocytes and metamyelocytes) > 1% indicates that a LEFT SHIFT is Present. Iron measurement (mass/mass) Ordered By: Edson Baptiste on 10-13-2024 Iron (Unsp spec) [Mass/Mass] 62 ug/dL Low 65-175 [facility] Ketones Test strip Ql (U)Ord ered By: Edson Baptiste on 10-13-2024 Ketones Ql (U) Negative Negative [facility] LDL calc ser/plasOrdered By: Edson Baptiste on 07-29-2025 Cholesterol in LDL [Mass/Vol] 78 mg/dL [facility] Comment on above: Skpuvteqyx=017-291 m g/dL & Higher Cemz=122 mg/dL or greaterFriedwald Equation for LDL-C Laboratory - Chemistry and C hemistry - challengeOrdered By: Edson Baptiste on 10-13-2024 AST [Catalytic activity/Vol] 16 U/L <38 [facility] Lipid Profileon 10-13-2024 CHOL:HDL 3.49 Normal [facility] Comment on above: Order Comment: Order Date: 10/13/24Order Info: [id number] - CMPOrder Info: [id number] - LIPIDOrder Info: [id number] - MG Performed By: #### L 501.5200, L500.4100, L500.4050, L100.0100 ####[facility] [address] [place], [place], [address] Cholesterol [Mass/Vol] 147 mg/dL Normal <=200 [facility] Comment on above: Order Comment: Order Date: 10/13/24Order Info: 07- - CMPOrder Info: [id number] - LIPIDOrder Info: [id number] - MG Result Comment: Chol esterol level, Desirable <200 mg/dL Borderline high cholesterol 200-239 mg/dL High cholesterol >=240 mg/dL Recommendations of the NCEP Adult Treatment Panel for the following risk-cutoff thresholds for the [place] population. Performed By: #### L 501.5200, L500.4100, L500.4050, L100.0100 ####[facility] [address] [place], [place], [address] Cholesterol in HDL [Mass/Vol] 42 mg/dL Normal [facility] Comment on above: Order Comment: Order Date: 10/13/24Order Info: [id number] - CMPOrder Info: [id number] - LIPIDOrder Info: [id number] - MG Result Comment: Priti onal Cholesterol Education Program (NCEP) guidelines: <40 mg/dL: Low HDL-cholesterol (major risk factor for CHD) >= 60 mg/dL: High HDL-cholesterol (negative risk factor for CHD) HDL-cholesterol is affected by a number of factors, e.g. smoking, exercise, hormones, sex and age. Performed By: #### L 501.5200, L500.4100, L500.4050, L100.0100 ####[facility] [address] [place], [address] Cholesterol in LDL [Mass/Vol] 78 mg/dL Normal [facility] Comment on above: Order Comment: Order Date: 10/13/24Order Info: [id number] - CMPOrder Info: [id number] - LIPIDOrder Info: [id number] - MG Result Comment: Bord rioofp=782-828 mg/dL Higher Kmxr=400 mg/dL or greater Friedwald Equation for LDL-C Performed By: #### L 501.5200, L500.4100, L500.4050, L100.0100 ####[facility] [address] [place], [address] Cholesterol in VLDL [Mass/Vol] 27 mg/dL Normal 5-40 [facility] Comment on above: Order Comment: Order Date: 10/13/24Order Info: [id number] - CMPOrder Info: [id number] - LIPIDOrder Info: [id number] - MG Performed By: #### L 501.5200, L500.4100, L500.4050, L100.0100 ####[facility] [address] [place], [address] Triglyceride [Mass/Vol] 137 mg/dL Normal [facility] Comment on above: Order Comment: Order Date: 10/13/24Order Info: [id number] - CMPOrder Info: [id number] - LIPIDOrder Info: [id number] - MG Result Comment: The drugs N-Acetylcysteine and Metamizole may falsely depress this assay. Normal range: <150 mg/dL Borderline High: 150-199 mg/dL High: 200-499 mg/dL Very High: >500 mg/dL Performed By: #### L 501.5200, L500.4100, L500.4050, L100.0100 ####[facility] [address] [place], [place], [address] MCV (mean corpuscular volume ) determinationOrdered By: Edson Baptiste on 10-13-2024 MCV (RBC) [Entitic vol] 91.8 fL 80-94 [facility] Magnesiumon 10-13-2024 Magnesium [Mass/Vol] 2.3 mg/dL High 1.5-2.2 [facility] Comment on above: Order Comment: Order Date: 10/13/24Order Info: [id number] - CMPOrder Info: [id number] - LIPIDOrder Info: [id number] - MG Performed By: #### L 501.5200, L500.4100, L500.4050, L100.0100 ####[facility] [address] [place], [address] Magnesium measurement (mass/ volume)Ordered By: Edson Baptiste on 10-13-2024 Magnesium (Unsp spec) [Mass/Vol] 2.3 mg/dL High 1.5-2.2 [facility] Mean corpuscular hemoglobin (MCH) determinationOrdered By: Edson Baptiste on 10-13-2024 MCH (RBC) [Entitic mass] 29.2 pg 27.0-32.0 [facility] Mean corpuscular hemoglobin concentration (MCHC) determinationOrdered By: Edson Baptiste on 10-13-2024 MCHC (RBC) [Mass/Vol] 31.8 g/dL Low 32-36 [facility] Mean platelet volume determi nationOrdered By: Edson Baptiste on 10-13-2024 Platelet mean volume (Bld) [Entitic vol] 9.6 fL 6.2-12.0 [facility] Microscopic analysis of urin e for red blood cells (RBC)Ordered By: Edson Baptiste on 10-13-2024 Microscopic analysis of urine for red blood cells (RBC) 0 SEEN /hpf 0-5 [facility] Monocyte percentageOrdered B y: Edson Baptiste on 10-13-2024 Monocytes/100 WBC (Bld) 6.0 % 0-10 [facility] Mucus LM Ql (Urine sed)Order ed By: Edson Baptiste on 10-13-2024 Mucus Ql (Urine sed) 0 SEEN /hpf [facility] Neutrophil percentageOrdered By: Edson Baptiste on 10-13-2024 Neutrophils/100 WBC (Bld) 68.5 % 47-70 [facility] Nitrite Test strip Ql (U)Ord ered By: Edson Baptiste on 10-13-2024 Nitrite Ql (U) Negative Negative [facility] No Panel InformationOrdered By: Edson Baptiste on 10-13-2024 Unsaturated Iron Binding Capacity 161 ug/dL Low 228-428 [facility] Nucleated red blood cell per centageOrdered By: Edson Baptiste on 10-13-2024 Nucleated RBC/100 WBC (Bld) [Ratio] 0 % 0-5 [facility] Platelet countOrdered By: Viviana Baptiste on 10-13-2024 Platelets (Bld) [#/Vol] 195 10*3/uL 150-450 [facility] Potassium measurement (mass/ volume)Ordered By: Edson Baptiste on 10-13-2024 Potassium (Unsp spec) [Mass/Vol] 4.5 mmol/L 3.3-5.1 [facility] Protein Test strip Ql (U)Ord ered By: Edson Baptiste on 10-13-2024 Protein Ql (U) 15 mg/dl High Negative [facility] RBC Auto (Bld) [#/Vol]Ordere d By: Edson Baptiste on 10-13-2024 RBC (Bld) [#/Vol] 4.14 10*6/uL Low 4.6-6.2 [facility] Screening total cholesterol/ high density lipoprotein (HDL) cholesterol ratioOrdered By: Edson Baptiste on 10-13-2024 Cholesterol.total/Chol esterol in HDL [Mass ratio] 3.49 {ratio} [facility] Serum creatinine measurement (mass/volume)Ordered By: Edson Baptiste on 10-13-2024 Creatinine [Mass/Vol] 1.34 mg/dL High 0.70-1.20 [facility] Serum globulin measurementOr dered By: Edson Baptiste on 10-13-2024 Globulin (S) [Mass/Vol] 2.6 g/dL 2.2-4.2 [facility] Serum glucose measurement (m ass/volume)Ordered By: Edson Baptiste on 10-13-2024 Glucose [Mass/Vol] 94 mg/dL 70-99 [facility] Serum or plasma alanine small otransferase (ALT) measurementOrdered By: Edson Baptiste on 10-13-2024 ALT [Catalytic activity/Vol] 10 U/L <47 [facility] Serum or plasma albumin pihlip urement (mass/volume)Ordered By: Edson Baptiste on 10-13-2024 Albumin [Mass/Vol] 4.1 g/dL 3.4-4.8 [facility] Serum or plasma albumin/glob ulin mass ratioOrdered By: Edson Baptiste on 10-13-2024 Albumin/Globulin [Mass ratio] 1.6 {ratio} 0.9-2.4 [facility] Serum or plasma alkaline edward sphatase measurementOrdered By: Edson Baptiste on 10-13-2024 ALP [Catalytic activity/Vol] 50 U/L 40-129 [facility] Serum or plasma calcium philip urement (mass/volume)Ordered By: Edson Baptiste on 10-13-2024 Calcium [Mass/Vol] 9.8 mg/dL 7.6-11.0 [facility] Serum or plasma cholesterol in HDL measurement (mass/volume)Ordered By: Edson Baptiste on 10-13-2024 Cholesterol in HDL [Mass/Vol] 42 mg/dL >40 [facility] Comment on above: National Cholesterol Education Program (NCEP) guidelines:<40 mg/dL: Low HDL-cholesterol (major risk factor for CHD)>= 60 mg/dL: High HDL-cholesterol (negative risk factor for CHD)HDL-cholesterol is affected by a number of factors, e.g. smoking, exercise, hormones, sex and age. Serum or plasma cholesterol measurement (mass/volume)Ordered By: Edson Baptiste on 10-13-2024 Cholesterol [Mass/Vol] 147 mg/dL <201 [facility] Comment on above: Cholesterol level, D esirable <200 mg/dLBorderline high cholesterol 200-239 mg/dLHigh cholesterol >=240 mg/dLRecommendations of the NCEP Adult Treatment Panel for the following risk-cutoff thresholds for the [place] population. Serum or plasma ferritin hi surement (mass/volume)Ordered By: Edson Baptiste on 10-13-2024 Ferritin [Mass/Vol] 123 ng/mL 37-417 [facility] Serum or plasma iron saturat ion measurement (mass fraction)Ordered By: Edson Baptiste on 10-13-2024 Iron saturation [Mass fraction] 27.8 % 9-55 [facility] Comment on above: Previous reported re sult: 28.0 %Edited by: FRANCISCA on 10/14/24:1639 AMENDED REPORT 10/14/24 1639 IRON SATURATION previously reported as: 28.0 % Serum or plasma urea nitroge n measurement (mass/volume)Ordered By: Edson Baptiste on 10-13-2024 Urea nitrogen [Mass/Vol] 19 mg/dL 4-19 [facility] Sodium levelOrdered By: Edson Baptiste on 10-13-2024 Sodium [Moles/Vol] 141 mmol/L 133-145 [facility] Squamous epithelial cells de tection in urine sediment by light microscopyOrdered By: Edson Baptiste on 10-13-2024 Epithelial cells.squamous LM Ql (Urine sed) 0 SEEN /hpf 0-5 [facility] Total proteinOrdered By: Tom Baptiste on 10-13-2024 Protein [Mass/Vol] 6.7 g/dL 5.9-8.4 [facility] Triglycerides measurementOrd ered By: Edson Baptiste on 10-13-2024 Triglyceride [Mass/Vol] 137 mg/dL <199 [facility] Comment on above: The drugs N-Acetylcy steine and Metamizole may falsely depress this assay. Normal range: <150 mg/dLBorderline High: 150-199 mg/dLHigh: 200-499 mg/dLVery High: >500 mg/dL Urinalysis, Completeon 10-13 WBC 0-5 SEEN Normal 0-5 [facility] Comment on above: Order Comment: Urine , Random Performed By: #### L 503.6031, L400.0001, L503.0106, L503.6550 ####[facility] [address] [place], [address] BACTERIA 0 SEEN Normal None Seen [facility] Comment on above: Order Comment: Urine , Random Performed By: #### L 503.6030, L400.0001, L503.0106, L503.6550 ####[facility] [address] [place], [address] EPI,SQUAMOUS 0 SEEN Normal 0-5 [facility] Comment on above: Order Comment: Urine , Random Performed By: #### L 503.6030, L400.0001, L503.0106, L503.6550 ####[facility] [address] [place], [address] Mucus Ql (Urine sed) 0 SEEN Normal [facility] Comment on above: Order Comment: Urine , Random Performed By: #### L 503.6030, L400.0001, L503.0106, L503.6550 ####[facility] [address] [place], [address] RBC 0 SEEN Normal 0-5 [facility] Comment on above: Order Comment: Urine , Random Performed By: #### L 503.6030, L400.0001, L503.0106, L503.6550 ####[facility] [address] [place], [address] Urine clarityOrdered By: Tom Baptiste on 10-13-2024 Clarity (U) Clear Clear [facility] Urine color determinationOrd ered By: Edson Baptiste on 10-13-2024 Color (U) Yellow Yellow [facility] Urine glucose detectionOrder ed By: Edson Baptiste on 10-13-2024 Glucose Ql (U) Normal mg/dl Normal [facility] Urine leukocyte esterase det ection by dipstickOrdered By: Edson Baptiste on 10-13-2024 Leukocyte esterase Test strip Ql (U) Negative Negative [facility] Urine pHOrdered By: Edson feldman on 10-13-2024 pH (U) 6.0 [pH] 5.0 - 8.0 [facility] Urine sediment bacteria coun t by microscopy (number/high power field)Ordered By: Edson Baptiste on 10-13-2024 Bacteria LM.HPF (Urine sed) [#/Area] 0 /[HPF] None Seen [facility] Urine specific gravity measu rementOrdered By: Edson Baptiste on 10-13-2024 Specific gravity (U) [Rel density] 1.020 1.002-1.030 [facility] Urine urobilinogen measureme ntOrdered By: Edson Baptiste on 10-13-2024 Urobilinogen Ql (U) Normal mg/dl Normal [facility] Vitamin B12 ser/plasOrdered By: Edson Baptiste on 10-13-2024 Cobalamin (Vitamin B12) [Mass/Vol] 491 pg/mL 180-914 [facility] White blood cell (WBC) count Ordered By: Edson Baptiste on 10-13-2024 WBC (Bld) [#/Vol] 6.9 10*3/uL 4.4-11.0 [facility] White blood cell countOrdere d By: Edson Baptiste on 10-13-2024 White blood cell count 0-5 SEEN /hpf 0-5 [facility] [id number] 10-12-2024 [id number] Normal [facility] CNTHERAPYon 10-12-2024 CNTHERAPY Normal [facility] CNOVon 10-08-2024 CNOV Normal [facility] CT BRAIN WO IVCONon 10-09-19 CT BRAIN WO IVCON Normal [facility] CNTHERAPYon 10-05-2024 CNTHERAPY Normal [facility] [id number] 10-03-2024 [id number] Normal [facility] CNTHERAPYon 10-02-2024 CNTHERAPY Normal [facility] THERAPY NTon 10-02-2024 THERAPY NT Normal [facility] [id number] 09-30-2024 [id number] Normal [facility] CNTHERAPYon 09-30-2024 CNTHERAPY Normal [facility] CNTHERAPYon 09-28-2024 CNTHERAPY Normal [facility] CNTHERAPYon 09-21-2024 CNTHERAPY Normal [facility] CNOVon 09-17-2024 CNOV Normal [facility] CT BRAIN WO IVCONon 09-18-19 CT BRAIN WO IVCON Normal [facility] Basic metabolic 2000 panelon 09-09-2024 Anion gap [Moles/Vol] 8 mmol/L 8 - 15 mmol/L [facility] Calcium [Mass/Vol] 8.8 mg/dL 8.5 - 10. 2 mg/dL [facility] Chloride [Moles/Vol] 106 mmol/L 98 - 10 7 mmol/L [facility] CO2 [Moles/Vol] 28 mmol/L 22 - 30 mmol/L [facility] Creatinine [Mass/Vol] 1.09 mg/dL 0.73 - 1.22 mg/dL [facility] GFR/1.73 sq M.predicted among non-blacks MDRD (S/P/Bld) [Vol rate/Area] 67 mL/min/{1.73_m2} - PINF [facility] Comment on above: Estimated Glomerular Filtration Rate (eGFR) is calculated using the 2020 CKD-EPI creatinine equation. This equation utilizes serum creatinine, sex, and age as parameters. The creatinine assay has traceable calibration to isotope dilution-mass spectrometry. Refer to KDIGO guidelines for clinical interpretation. In patients with unstable renal function, e.g. those with acute kidney injury, the eGFR may not accurately reflect actual GFR. Glucose [Mass/Vol] 88 mg/dL 74 - 99 mg/dL [facility] Comment on above: The [place] Diabete s Association (ADA) provides guidance for cutoff values for fasting glucose and random glucose. The ADA defines fasting as no caloric intake for at least 8 hours. Fasting plasma glucose results between 100 to 125 mg/dL indicate increased risk for diabetes (prediabetes). Fasting plasma glucose results greater than or equal to 126 mg/dL meet the criteria for diagnosis of diabetes. In the absence of unequivocal hyperglycemia, results should be confirmed by repeat testing. In a patient with classic symptoms of hyperglycemia or hyperglycemic crisis, random plasma glucose results greater than or equal to 200 mg/dL meet the criteria for diagnosis of diabetes. Reference: Standards of Medical Care in Diabetes 2016, [place] Diabetes Association. Diabetes Care. 2016.39(Suppl 1). Interpretation and review of laboratory results Normal [facility] Potassium [Moles/Vol] 4.1 mmol/L 3.7 - 5.1 mmol/L [facility] Sodium [Moles/Vol] 142 mmol/L 136 - 144 mmol/L [facility] Urea nitrogen [Mass/Vol] 24 mg/dL 9 - 24 mg/dL [facility] Anion gap [Moles/Vol] 8 mmol/L Normal 8-15 [facility] Comment on above: Order Comment: Speci men Type: BLOOD SPECIMEN Ordering Facility: [facility] Address: [address] [place] [address] Performed By: #### 2 4321-2 #### [facility] CLIA [id number] [address] [place] [address] [place] Calcium [Mass/Vol] 8.8 mg/dL Normal 8.5-10.2 [facility] Comment on above: Order Comment: Speci men Type: BLOOD SPECIMEN Ordering Facility: [facility] Address: [address] [place] [address] Performed By: #### 2 4321-2 #### [facility] CLIA [id number] [address] [place] [address] [place] Chloride [Moles/Vol] 106 mmol/L Normal 98-107 [facility] Comment on above: Order Comment: Speci men Type: BLOOD SPECIMEN Ordering Facility: [facility] Address: [address] [place] [address] Performed By: #### 2 4321-2 #### [facility] CLIA [id number] [address] [place] [address] [place] CO2 [Moles/Vol] 28 mmol/L Normal 22-30 [facility] Comment on above: Order Comment: Speci men Type: BLOOD SPECIMEN Ordering Facility: [facility] Address: [address] [place] [address] Performed By: #### 2 4321-2 #### [facility] CLIA [id number] [address] [place] [address] [place] Creatinine [Mass/Vol] 1.09 mg/dL Normal 0.73-1.22 [facility] Comment on above: Order Comment: Speci men Type: BLOOD SPECIMEN Ordering Facility: [facility] Address: [address] [place], [place] [address] Performed By: #### 2 4321-2 #### [facility] CLIA [id number] [address] [place] [address] [place] Creatinine and Glomerular filtration rate.predicted panel (S/P/Bld) 67 mL/min/1.73m??? Normal >=60 [facility] Comment on above: Order Comment: Karyn walker Type: BLOOD SPECIMEN Ordering Facility: [facility] Address: [address] [place] [address] Result Comment: Nohemi mated Glomerular Filtration Rate (eGFR) is calculated using the 2020 CKD-EPI creatinine equation. This equation utilizes serum creatinine, sex, and age as parameters. The creatinine assay has traceable calibration to isotope dilution-mass spectrometry. Refer to KDIGO guidelines for clinical interpretation. In patients with unstable renal function, e.g. those with acute kidney injury, the eGFR may not accurately reflect actual GFR. Performed By: #### 2 4321-2 #### [facility] CLIA [id number] [address] [place] [address] [place] Glucose [Mass/Vol] 88 mg/dL Normal 74-99 [facility] Comment on above: Order Comment: Karyn walker Type: BLOOD SPECIMEN Ordering Facility: [facility] Address: [address] [place] [address] Result Comment: The [place] Diabetes Association (ADA) provides guidance for cutoff values for fasting glucose and random glucose. The ADA defines fasting as no caloric intake for at least 8 hours. Fasting plasma glucose results between 100 to 125 mg/dL indicate increased risk for diabetes (prediabetes). Fasting plasma glucose results greater than or equal to 126 mg/dL meet the criteria for diagnosis of diabetes. In the absence of unequivocal hyperglycemia, results should be confirmed by repeat testing. In a patient with classic symptoms of hyperglycemia or hyperglycemic crisis, random plasma glucose results greater than or equal to 200 mg/dL meet the criteria for diagnosis of diabetes. Reference: Standards of Medical Care in Diabetes 2016, [employer]. Diabetes Care. 2016.39(Suppl 1). Performed By: #### 2 4321-2 #### [facility] CLIA [id number] [address] [place] [address] [place] Potassium [Moles/Vol] 4.1 mmol/L Normal 3.7-5.1 [facility] Comment on above: Order Comment: Karyn walker Type: BLOOD SPECIMEN Ordering Facility: [facility] Address: [address] [place] [address] Performed By: #### 2 4321-2 #### [facility] CLIA [id number] [address] [place] [address] [place] Sodium [Moles/Vol] 142 mmol/L Normal 136-144 [facility] Comment on above: Order Comment: Kendrai denise Type: BLOOD SPECIMEN Ordering Facility: [facility] Address: [address] [place] [address] Performed By: #### 2 4321-2 #### [facility] CLIA [id number] [address] [place] Urea nitrogen [Mass/Vol] 24 mg/dL Normal 9-24 [facility] Comment on above: Order Comment: Kendrai men Type: BLOOD SPECIMEN Ordering Facility: [facility] Address: [address] [place] [address] Performed By: #### 2 4321-2 #### [facility] CLIA [id number] [address] [place] [address] [place] CBC panel Auto (Bld)on 09-09 Erythrocyte distribution width (RBC) [Ratio] 12.2 % 11.5 - 15.0 % [facility] Hematocrit (Bld) [Volume fraction] 30.3 % Low 39.0 - 51.0 % [facility] Hemoglobin (Bld) [Mass/Vol] 10.1 g/dL Low 13.0 - 17.0 g/dL [facility] Interpretation and review of laboratory results Abnormal [facility] MCH (RBC) [Entitic mass] 29.7 pg 26.0 - 34.0 pg [facility] MCHC (RBC) [Mass/Vol] 33.3 g/dL 30.5 - 36.0 g/dL [facility] MCV (RBC) [Entitic vol] 89.1 fL 80.0 - 100.0 fL [facility] Nucleated RBC (Bld) [#/Vol] NINF [facility] Platelet mean volume (Bld) [Entitic vol] 9.3 fL 9.0 - 12.7 fL [facility] Platelets (Bld) [#/Vol] 175 10*3/uL [facility] RBC (Bld) [#/Vol] 3.4 10*6/uL Low 4.20 - 6.0 0 m/uL [facility] WBC (Bld) [#/Vol] 6.69 10*3/uL [facility] Erythrocyte distribution width (RBC) [Ratio] 12.2 % Normal 11.5-15.0 [facility] Comment on above: Order Comment: Speci men Type: BLOOD SPECIMEN Ordering Facility: [facility] Address: [address] [place] [address] Performed By: #### 5 8410-2 #### [facility] CLIA [id number] [address] STATES [place] [facility] Hematocrit (Bld) [Volume fraction] 30.3 % Low 39.0-51.0 [facility] Comment on above: Order Comment: Speci men Type: BLOOD SPECIMEN Ordering Facility: [facility] Address: [address] [place] [address] Performed By: #### 5 8410-2 #### [facility] CLIA [id number] [address] STATES [place] [facility] Hemoglobin (Bld) [Mass/Vol] 10.1 g/dL Low 13.0-17.0 [facility] Comment on above: Order Comment: Speci men Type: BLOOD SPECIMEN Ordering Facility: [facility] Address: [address] [place] [address] Performed By: #### 5 8410-2 #### [facility] CLIA [id number] [address] [place] MCH (RBC) [Entitic mass] 29.7 pg Normal 26.0-34.0 [facility] Comment on above: Order Comment: Speci men Type: BLOOD SPECIMEN Ordering Facility: [facility] Address: [address] [place] [address] Performed By: #### 5 8410-2 #### [facility] CLIA [id number] [address] [place] [address] [place] MCHC (RBC) [Mass/Vol] 33.3 g/dL Normal 30.5-36.0 [facility] Comment on above: Order Comment: Speci men Type: BLOOD SPECIMEN Ordering Facility: [facility] Address: [address] [place] [address] Performed By: #### 5 8410-2 #### [facility] CLIA [id number] [address] [place] [address] [place] MCV (RBC) [Entitic vol] 89.1 fL Normal 80.0-100.0 [facility] Comment on above: Order Comment: Speci men Type: BLOOD SPECIMEN Ordering Facility: [facility] Address: [address] [place] [address] Performed By: #### 5 8410-2 #### [facility] CLIA [id number] [address] [place] [address] [place] Nucleated RBC (Bld) [#/Vol] 10*3/uL Normal <0.01 [facility] Comment on above: Order Comment: Speci men Type: BLOOD SPECIMEN Ordering Facility: [facility] Address: [address] [place] [address] Performed By: #### 5 8410-2 #### [facility] CLIA [id number] [address] [place] Platelet mean volume (Bld) [Entitic vol] 9.3 fL Normal 9.0-12.7 [facility] Comment on above: Order Comment: Speci men Type: BLOOD SPECIMEN Ordering Facility: [facility] Address: [address] [place] [address] Performed By: #### 5 8410-2 #### [facility] CLIA [id number] [address] [place] [address] [place] Platelets (Bld) [#/Vol] 175 10*3/uL Normal 150-400 [facility] Comment on above: Order Comment: Speci men Type: BLOOD SPECIMEN Ordering Facility: [facility] Address: [address] [place] [address] Performed By: #### 5 8410-2 #### [facility] CLIA [id number] [address] [place] [address] [place] RBC (Bld) [#/Vol] 3.40 10*6/uL Low 4.20-6.00 [facility] Comment on above: Order Comment: Speci men Type: BLOOD SPECIMEN Ordering Facility: [facility] Address: [address] [place] [address] Performed By: #### 5 8410-2 #### [facility] CLIA [id number] [address] [place] WBC (Bld) [#/Vol] 6.69 10*3/uL Normal 3.70-11.00 [facility] Comment on above: Order Comment: Speci men Type: BLOOD SPECIMEN Ordering Facility: [facility] Address: [address] [place] [address] Performed By: #### 5 8410-2 #### [facility] CLIA [id number] [address] [place] CNPNon 09-08-2024 CNPN Normal [facility] CASE MANAGEMon 09-06-2024 CASE MANAGEM Normal [facility] CASE MANAGEM Normal [facility] CNDSon 09-06-2024 CNDS Normal [facility] CASE MANAGEMon 09-05-2024 CASE MANAGEM Normal [facility] THERAPY NTon 09-05-2024 THERAPY NT Normal [facility] CASE MANAGEMon 09-04-2024 CASE MANAGEM Normal [facility] CNPNon 09-04-2024 CNPN Normal [facility] CT BRAIN WO IVCONon 09-05-19 CT BRAIN WO IVCON Normal [facility] THERAPY NTon 09-04-2024 THERAPY NT Normal [facility] THERAPY NT Normal [facility] CASE MANAGEMon 09-03-2024 CASE MANAGEM Normal [facility] CBC panel Auto (Bld)on 09-03 Erythrocyte distribution width (RBC) [Ratio] 11.8 % Normal 11.5-15.0 [facility] Comment on above: Order Comment: Speci men Type: BLOOD SPECIMENOrdering Facility: [facility] Address: [address] [place] [address] Performed By: #### 5 8410-2 ####[facility] [id number] [address] [place] [facility] Hematocrit (Bld) [Volume fraction] 33.1 % Low 39.0-51.0 [facility] Comment on above: Order Comment: Speci men Type: BLOOD SPECIMENOrdering Facility: [facility] Address: [address] [place] [address] Performed By: #### 5 8410-2 ####[facility]CLIA [id number] [address] [place] Hemoglobin (Bld) [Mass/Vol] 11.3 g/dL Low 13.0-17.0 [facility] Comment on above: Order Comment: Speci men Type: BLOOD SPECIMENOrdering Facility: [facility] Address: [address] [place] [address] Performed By: #### 5 8410-2 ####[facility]ORYCLIA [id number] [address] [place] MCH (RBC) [Entitic mass] 30.0 pg Normal 26.0-34.0 [facility] Comment on above: Order Comment: Speci men Type: BLOOD SPECIMENOrdering Facility: [facility] Address: [address] [place] [address] Performed By: #### 5 8410-2 ####[facility]ORYCLIA [id number] [address] [place] MCHC (RBC) [Mass/Vol] 34.1 g/dL Normal 30.5-36.0 [facility] Comment on above: Order Comment: Speci men Type: BLOOD SPECIMENOrdering Facility: [facility] Address: [address] [place] [address] Performed By: #### 5 8410-2 ####[facility]CLIA [id number] [address] [place] MCV (RBC) [Entitic vol] 87.8 fL Normal 80.0-100.0 [facility] Comment on above: Order Comment: Speci men Type: BLOOD SPECIMENOrdering Facility: [facility] Address: [address] [place] [address] Performed By: #### 5 8410-2 ####[facility]ORYCLIA [id number] [place] [address] [place] Nucleated RBC (Bld) [#/Vol] 10*3/uL Normal <0.01 [facility] Comment on above: Order Comment: Speci men Type: BLOOD SPECIMENOrdering Facility: [facility] Address: [address] [place] [address] Performed By: #### 5 8410-2 ####[facility]ORYCLIA [id number] [address] [place] Platelet mean volume (Bld) [Entitic vol] 9.7 fL Normal 9.0-12.7 [facility] Comment on above: Order Comment: Speci men Type: BLOOD SPECIMENOrdering Facility: [facility] Address: [address] [place] [address] Performed By: #### 5 8410-2 ####[facility]ORYCLIA [id number] [address] [place] Platelets (Bld) [#/Vol] 140 10*3/uL Low 150-400 [facility] Comment on above: Order Comment: Speci men Type: BLOOD SPECIMENOrdering Facility: [facility] Address: [address] [place] [address] Performed By: #### 5 8410-2 ####[facility]ORYCLIA [id number] [address] [place] RBC (Bld) [#/Vol] 3.77 10*6/uL Low 4.20-6.00 [facility] Comment on above: Order Comment: Speci men Type: BLOOD SPECIMENOrdering Facility: [facility] Address: [address] [place], [place] [address] Performed By: #### 5 8410-2 ####[facility]ORYCLIA [id number] [place] [address] [place] WBC (Bld) [#/Vol] 8.70 10*3/uL Normal 3.70-11.00 [facility] Comment on above: Order Comment: Speci men Type: BLOOD SPECIMENOrdering Facility: [facility] Address: [address] [place] [address] Performed By: #### 5 8410-2 ####[facility]ORYCLIA [id number] [place] [address] [place] CONSULTon 09-03-2024 CONSULT Normal [facility] Comprehensive metabolic 2000 panelon 09-03-2024 Albumin [Mass/Vol] 3.4 g/dL Low 3.9-4.9 [facility] Comment on above: Order Comment: Speci men Type: BLOOD SPECIMENOrdering Facility: [facility] Address: [address] [place] [address] Performed By: #### 2 4323-8, 02435-4, 2776-03 ####[facility]ORYCLIA [id number] [address] [place] ALP [Catalytic activity/Vol] 44 U/L Normal 38-113 [facility] Comment on above: Order Comment: Speci men Type: BLOOD SPECIMENOrdering Facility: [facility] Address: [address] [place] [address] Performed By: #### 2 4323-8, , 1 ####[facility]ORYCLIA [id number] [address] [place] ALT With P-5'-P [Catalytic activity/Vol] 7 U/L Low 10-54 [facility] Comment on above: Order Comment: Speci men Type: BLOOD SPECIMENOrdering Facility: [facility] Address: [address] [place] [address] Performed By: #### 2 4323-8, , 2776- ####[facility]ORYCLIA [id number] [place] [address] [place] Anion gap [Moles/Vol] 10 mmol/L Normal 8-15 [facility] Comment on above: Order Comment: Speci men Type: BLOOD SPECIMENOrdering Facility: [facility] Address: [address] [place] [address] Performed By: #### 2 4323-8, , 2776-03 ####[facility]ORYCLIA [id number] [place] [id number] [place] AST With P-5'-P [Catalytic activity/Vol] 17 U/L Normal 14-40 [facility] Comment on above: Order Comment: Speci men Type: BLOOD SPECIMENOrdering Facility: [facility] Address: [address] [place] [address] Performed By: #### 2 4323-8, , 2776-03 ####[facility]ORYCLIA [id number] [place] [address] [place] Bilirubin [Mass/Vol] 0.6 mg/dL Normal 0.2-1.3 [facility] Comment on above: Order Comment: Speci men Type: BLOOD SPECIMENOrdering Facility: [facility] Address: [address] [place] [address] Performed By: #### 2 4323-8, , 2776-03 ####[facility]ORYCLIA [id number] [place] [address] [place] Calcium [Mass/Vol] 8.9 mg/dL Normal 8.5-10.2 [facility] Comment on above: Order Comment: Speci men Type: BLOOD SPECIMENOrdering Facility: [facility] Address: [address] [place] [address] Performed By: #### 2 4323-8, , 2776-03 ####[facility]ORYCLIA [id number] [place] [address] [place] Chloride [Moles/Vol] 101 mmol/L Normal 98-107 [facility] Comment on above: Order Comment: Speci men Type: BLOOD SPECIMENOrdering Facility: [facility] Address: [address] [place] [address] Performed By: #### 2 4323-8, , 2776-03 ####[facility]ORYCLIA [id number] [place] [address] [place] CO2 [Moles/Vol] 23 mmol/L Normal 22-30 [facility] Comment on above: Order Comment: Speci men Type: BLOOD SPECIMENOrdering Facility: [facility] Address: [address] [place] [address] Performed By: #### 2 4323-8, , 2776-03 ####[facility]ORYCLIA [id number] [address] [place] Creatinine [Mass/Vol] 1.33 mg/dL High 0.73-1.22 [facility] Comment on above: Order Comment: Speci men Type: BLOOD SPECIMENOrdering Facility: [facility] Address: [address] [place] [address] Performed By: #### 2 4323-8, , 2776-03 ####[facility]ORYCLIA [id number] [address] Creatinine and Glomerular filtration rate.predicted panel (S/P/Bld) 53 mL/min/1.73m??? Low >=60 [facility] Comment on above: Order Comment: Speci men Type: BLOOD SPECIMENOrdering Facility: [facility] Address: [address] [place] [address] Result Comment: Nohemi mated Glomerular Filtration Rate (eGFR) is calculated using the 2020 CKD-EPI creatinine equation. This equation utilizes serum creatinine, sex, and age as parameters. The creatinine assay has traceable calibration to isotope dilution-mass spectrometry. Refer to KDIGO guidelines for clinical interpretation. In patients with unstable renal function, e.g. those with acute kidney injury, the eGFR may not accurately reflect actual GFR. Performed By: #### 2 4323-, , 2776-03 ####[facility]ORYCLIA [id number] [place] [address] [place] Glucose [Mass/Vol] 149 mg/dL High 74-99 [facility] Comment on above: Order Comment: Speci men Type: BLOOD SPECIMENOrdering Facility: [facility] Address: [address] [place], [place] [address] Result Comment: The [place] Diabetes Association (ADA) provides guidance for cutoff values for fasting glucose and random glucose. The ADA defines fasting as no caloric intake for at least 8 hours. Fasting plasma glucose results between 100 to 125 mg/dL indicate increased risk for diabetes (prediabetes).Fasting plasma glucose results greater than or equal to 126 mg/dL meet the criteria for diagnosis of diabetes. In the absence of unequivocal hyperglycemia, results should be confirmed by repeat testing. In a patient with classic symptoms of hyperglycemia or hyperglycemic crisis, random plasma glucose results greater than or equal to 200 mg/dL meet the criteria for diagnosis of diabetes.Reference: Standards of Medical Care in Diabetes 2016, [place] Diabetes Association. Diabetes Care. 2016.39(Suppl 1). Performed By: #### 2 4323-8, , 2776-03 ####[facility]ORYCLIA [id number] [place] [id number] [place] Potassium [Moles/Vol] 4.1 mmol/L Normal 3.7-5.1 [facility] Comment on above: Order Comment: Speci men Type: BLOOD SPECIMENOrdering Facility: [facility] Address: [address] [place] [address] Performed By: #### 2 4323-8, , 2776-03 ####[facility]ORYCLIA [id number] [place] [address] [place] Protein [Mass/Vol] 5.9 g/dL Low 6.3-8.0 [facility] Comment on above: Order Comment: Speci men Type: BLOOD SPECIMENOrdering Facility: [facility] Address: [address] [place] [address] Performed By: #### 2 4323-8, , 2776-03 ####[facility]ORYCLIA [id number] [place] [address] [place] Sodium [Moles/Vol] 134 mmol/L Low 136-144 [facility] Comment on above: Order Comment: Speci men Type: BLOOD SPECIMENOrdering Facility: [facility] Address: [address] [place] [address] Performed By: #### 2 4323-8, , 2776-03 ####[facility]ORYCLIA [id number] [place] [id number] [place] Urea nitrogen [Mass/Vol] 26 mg/dL High 9-24 [facility] Comment on above: Order Comment: Speci men Type: BLOOD SPECIMENOrdering Facility: [facility] Address: [address] [place] [address] Performed By: #### 2 4323-8, , 2776-03 ####[facility]ORYCLIA [id number] [place] [address] [place] Magnesium SerPl-mCncon 09-03 Magnesium [Mass/Vol] 1.9 mg/dL Normal 1.7-2.3 [facility] Comment on above: Order Comment: Speci men Type: BLOOD SPECIMENOrdering Facility: [facility] Address: [address] [place] [address] Performed By: #### 2 4323-8, , 2776-03 ####[facility]ORYCLIA [id number] [place] [address] [place] Phosphate SerPl-mCncon 09-03 Phosphate [Mass/Vol] 2.6 mg/dL Low 2.7-4.8 [facility] Comment on above: Order Comment: Speci men Type: BLOOD SPECIMENOrdering Facility: [facility] Address: [address] [place] [address] Performed By: #### 2 4323-8, , 2776-03 ####[facility]ORYCLIA [id number] [address] [place] THERAPY NTon 09-03-2024 THERAPY NT Normal [facility] XR ELBOW 2V AP/LAT RTon 08-16 XR ELBOW 2V AP/LAT RT Normal [facility] ALLIED HEALTHon 09-02-2024 ALLIED HEALTH Normal [facility] CBC panel Auto (Bld)on 09-02 Erythrocyte distribution width (RBC) [Ratio] 12.0 % Normal 11.5-15.0 [facility] Comment on above: Order Comment: Speci men Type: BLOOD SPECIMENOrdering Facility: [facility] Address: [address] [place] [address] Performed By: #### 5 8410-2 ####[facility]ORYCLIA [id number] [address] [place] Hematocrit (Bld) [Volume fraction] 32.9 % Low 39.0-51.0 [facility] Comment on above: Order Comment: Speci men Type: BLOOD SPECIMENOrdering Facility: [facility] Address: [address] [place] [address] Performed By: #### 5 8410-2 ####[facility]ORYCLIA [id number] [address] [place] Hemoglobin (Bld) [Mass/Vol] 11.2 g/dL Low 13.0-17.0 [facility] Comment on above: Order Comment: Speci men Type: BLOOD SPECIMENOrdering Facility: [facility] Address: [address] [place] [address] Performed By: #### 5 8410-2 ####[facility]ORYCLIA [id number] [address] [place] MCH (RBC) [Entitic mass] 30.3 pg Normal 26.0-34.0 [facility] Comment on above: Order Comment: Speci men Type: BLOOD SPECIMENOrdering Facility: [facility] Address: [address] [place] [address] Performed By: #### 5 8410-2 ####[facility]ORYCLIA [id number] [address] [place] [facility] MCHC (RBC) [Mass/Vol] 34.0 g/dL Normal 30.5-36.0 [facility] Comment on above: Order Comment: Speci men Type: BLOOD SPECIMENOrdering Facility: [facility] Address: [address] [place] [address] Performed By: #### 5 8410-2 ####[facility]ORYCLIA [id number] [address] [place] MCV (RBC) [Entitic vol] 88.9 fL Normal 80.0-100.0 [facility] Comment on above: Order Comment: Speci men Type: BLOOD SPECIMENOrdering Facility: [facility] Address: [address] [place] [address] Performed By: #### 5 8410-2 ####[facility]ORYCLIA [id number] [address] Nucleated RBC (Bld) [#/Vol] 10*3/uL Normal <0.01 [facility] Comment on above: Order Comment: Speci men Type: BLOOD SPECIMENOrdering Facility: [facility] Address: [address] [place] [address] Performed By: #### 5 8410-2 ####[facility]ORYCLIA [id number] [address] [place] Platelet mean volume (Bld) [Entitic vol] 9.2 fL Normal 9.0-12.7 [facility] Comment on above: Order Comment: Speci men Type: BLOOD SPECIMENOrdering Facility: [facility] Address: [address] [place] [address] Performed By: #### 5 8410-2 ####[facility]ORYCLIA [id number] [address] [place] Platelets (Bld) [#/Vol] 147 10*3/uL Low 150-400 [facility] Comment on above: Order Comment: Speci men Type: BLOOD SPECIMENOrdering Facility: [facility] Address: [address] [place] [address] Performed By: #### 5 8410-2 ####[facility]ORYCLIA [id number] [address] [place] RBC (Bld) [#/Vol] 3.70 10*6/uL Low 4.20-6.00 [facility] Comment on above: Order Comment: Speci men Type: BLOOD SPECIMENOrdering Facility: [facility] Address: [address] [place] [address] Performed By: #### 5 8410-2 ####[facility]ORYCLIA [id number] [address] [place] [facility] WBC (Bld) [#/Vol] 8.61 10*3/uL Normal 3.70-11.00 [facility] Comment on above: Order Comment: Speci men Type: BLOOD SPECIMENOrdering Facility: [facility] Address: [address] [place] [address] Performed By: #### 5 8410-2 ####[facility]ORYCLIA [id number] [address] [place] CONSULTon 09-02-2024 CONSULT Normal [facility] CT BRAIN WO IVCONon 09-03-[address] BRAIN WO IVCON Normal [facility] Comprehensive metabolic 2000 panelon 09-02-2024 Albumin [Mass/Vol] 3.4 g/dL Low 3.9-4.9 [facility] Comment on above: Order Comment: Speci men Type: BLOOD SPECIMENOrdering Facility: [facility] Address: [address] [place] [address] Performed By: #### 2 777-1, 59046-3, 17594-9 ####[facility]ORYCLIA [id number] [address] ALP [Catalytic activity/Vol] 44 U/L Normal 38-113 [facility] Comment on above: Order Comment: Speci men Type: BLOOD SPECIMENOrdering Facility: [facility] Address: [address] [place] [address] Performed By: #### 2 777-1, , ####[facility]ORYCLIA [id number] [place] [address] [place] ALT With P-5'-P [Catalytic activity/Vol] 6 U/L Low 10-54 [facility] Comment on above: Order Comment: Speci men Type: BLOOD SPECIMENOrdering Facility: [facility] Address: [address] [place] [address] Performed By: #### 2 777-1, , ####[facility] LABORATORYCLIA [id number] [address] [place] [facility] Anion gap [Moles/Vol] 9 mmol/L Normal 8-15 [facility] Comment on above: Order Comment: Speci men Type: BLOOD SPECIMENOrdering Facility: [facility] Address: [address] [place] [address] Performed By: #### 2 777-1, , ####[facility] LABORATORYCLIA [id number] [address] [place] [facility] AST With P-5'-P [Catalytic activity/Vol] 15 U/L Normal 14-40 [facility] Comment on above: Order Comment: Speci men Type: BLOOD SPECIMENOrdering Facility: [facility] Address: [address] [place] [address] Performed By: #### 2 777-1, , ####[facility] LABORATORYCLIA [id number] [address] [place] [facility] Bilirubin [Mass/Vol] 0.5 mg/dL Normal 0.2-1.3 [facility] Comment on above: Order Comment: Speci men Type: BLOOD SPECIMENOrdering Facility: [facility] Address: [address] [place] [address] Performed By: #### 2 777-1, , ####[facility] LABORATORYCLIA [id number] [place] [id number] [place] Calcium [Mass/Vol] 8.6 mg/dL Normal 8.5-10.2 [facility] Comment on above: Order Comment: Speci men Type: BLOOD SPECIMENOrdering Facility: [facility] Address: [address] [place] [address] Performed By: #### 2 777-1, , ####[facility] LABORATORYCLIA [id number] [place] [address] [place] Chloride [Moles/Vol] 103 mmol/L Normal 98-107 [facility] Comment on above: Order Comment: Speci men Type: BLOOD SPECIMENOrdering Facility: [facility] Address: [address] [place] [address] Performed By: #### 2 777-1, , ####[facility] LABORATORYCLIA [id number] [place] [address] [place] CO2 [Moles/Vol] 25 mmol/L Normal 22-30 [facility] Comment on above: Order Comment: Speci men Type: BLOOD SPECIMENOrdering Facility: [facility] Address: [address] [place] [address] Performed By: #### 2 777-1, , ####[facility] LABORATORYCLIA [id number] [place] [address] [place] Creatinine [Mass/Vol] 1.41 mg/dL High 0.73-1.22 [facility] Comment on above: Order Comment: Speci men Type: BLOOD SPECIMENOrdering Facility: [facility] Address: [address] [place] [address] Performed By: #### 2 777-1, , ####[facility] LABORATORYCLIA [id number] [address] [place] Creatinine and Glomerular filtration rate.predicted panel (S/P/Bld) 49 mL/min/1.73m??? Low >=60 [facility] Comment on above: Order Comment: Karyn walker Type: BLOOD SPECIMENOrdering Facility: [facility] Address: [address] [place] [id number] Result Comment: Nohemi mated Glomerular Filtration Rate (eGFR) is calculated using the 2020 CKD-EPI creatinine equation. This equation utilizes serum creatinine, sex, and age as parameters. The creatinine assay has traceable calibration to isotope dilution-mass spectrometry. Refer to KDIGO guidelines for clinical interpretation. In patients with unstable renal function, e.g. those with acute kidney injury, the eGFR may not accurately reflect actual GFR. Performed By: #### 2 777-1, 15408-7, ####[facility] LABORATORYCLIA [id number] [place] [id number] [place] Glucose [Mass/Vol] 98 mg/dL Normal 74-99 [facility] Comment on above: Order Comment: Karyn walker Type: BLOOD SPECIMENOrdering Facility: [facility] Address: [address] [place] [address] Result Comment: The [place] Diabetes Association (ADA) provides guidance for cutoff values for fasting glucose and random glucose. The ADA defines fasting as no caloric intake for at least 8 hours. Fasting plasma glucose results between 100 to 125 mg/dL indicate increased risk for diabetes (prediabetes).Fasting plasma glucose results greater than or equal to 126 mg/dL meet the criteria for diagnosis of diabetes. In the absence of unequivocal hyperglycemia, results should be confirmed by repeat testing. In a patient with classic symptoms of hyperglycemia or hyperglycemic crisis, random plasma glucose results greater than or equal to 200 mg/dL meet the criteria for diagnosis of diabetes.Reference: Standards of Medical Care in Diabetes 2016, [place] Diabetes Association. Diabetes Care. 2016.39(Suppl 1). Performed By: #### 2 777-1, 33628-8, 86001-1 ####[facility] LABORATORYCLIA [id number] [place] [id number] [place] Potassium [Moles/Vol] 4.1 mmol/L Normal 3.7-5.1 [facility] Comment on above: Order Comment: Karyn walker Type: BLOOD SPECIMENOrdering Facility: [facility] Address: [address] [place] [id number] Performed By: #### 2 777-1, , 08713-3 ####[facility] LABORATORYCLIA [id number] [place] [address] [place] Protein [Mass/Vol] 6.0 g/dL Low 6.3-8.0 [facility] Comment on above: Order Comment: Speci men Type: BLOOD SPECIMENOrdering Facility: [facility] Address: [address] [place] [address] Performed By: #### 2 777-1, , ####[facility] LABORATORYCLIA [id number] [place] [address] [place] Sodium [Moles/Vol] 137 mmol/L Normal 136-144 [facility] Comment on above: Order Comment: Speci men Type: BLOOD SPECIMENOrdering Facility: [facility] Address: [address] [place] [address] Performed By: #### 2 777-1, , ####[facility] LABORATORYCLIA [id number] [place] [address] [place] Urea nitrogen [Mass/Vol] 19 mg/dL Normal 9-24 [facility] Comment on above: Order Comment: Speci men Type: BLOOD SPECIMENOrdering Facility: [facility] Address: [address] [place] [address] Performed By: #### 2 777-1, , ####[facility] LABORATORYCLIA [id number] [place] [phone] [place] Magnesium SerPl-mCncon 09-02 Magnesium [Mass/Vol] 1.9 mg/dL Normal 1.7-2.3 [facility] Comment on above: Order Comment: Speci men Type: BLOOD SPECIMENOrdering Facility: [facility] Address: [address] [place] [address] Performed By: #### 2 777-1, , 96945-4 ####[facility] LABORATORYCLIA [id number] [place] [address] [place] NURSING PROGon 09-02-2024 NURSING PROG Normal [facility] NUTRITIONon 09-02-2024 NUTRITION Normal [facility] Phosphate SerPl-mCncon 09-02 Phosphate [Mass/Vol] 2.6 mg/dL Low 2.7-4.8 [facility] Comment on above: Order Comment: Speci men Type: BLOOD SPECIMENOrdering Facility: [facility] Address: [address] [place] [address] Performed By: #### 2 777-1, 04925-8, 14666-2 ####[facility] LABORATORYCLIA [id number] [place] [phone] [facility] THERAPY NTon 09-02-2024 THERAPY NT Normal [facility] THERAPY NT Normal [facility] TYPE + SCREENon 09-02-2024 ABO O [facility] Comment on above: Order Comment: Speci men Type: BLOOD SPECIMENOrdering Facility: [facility] Address: [address] [place] [address] Performed By: #### T SCR ####[facility] BLOOD BANKCLIA [id number] [address] [place] Rh Nom (Bld) Positive Normal [facility] Comment on above: Order Comment: Speci men Type: BLOOD SPECIMENOrdering Facility: [facility] Address: [address] [place] [address] Performed By: #### T SCR ####[facility] BLOOD BANKCLIA [id number] [place] [phone] [place] TYPE AND SCREEN EXPIRATION 09/05/2024 23:59 Normal [facility] Comment on above: Order Comment: Speci men Type: BLOOD SPECIMENOrdering Facility: [facility] Address: [address] [place] [address] Performed By: #### T SCR ####[facility] BLOOD BANKCLIA [id number] [place] [address] [place] ALLIED HEALTHon 09-01-2024 ALLIED HEALTH Normal [facility] C diff Tox gens Stl Ql MATILDE+p robeon 09-01-2024 C. difficile toxin genes MATILDE+probe Ql (Stl) Negative Normal Negative for C. difficile toxin by PCR [facility] Comment on above: Order Comment: Speci denise Type: STOOL SPECIMENOrdering Facility: [facility] Address: [address] [place] [address] Performed By: #### 5 4067-4 ####[facility] LABORATORYCLIA [id number] [place] [address] [place] CASE MGT INIT ASSESon 2024 CASE MGT INIT ASSES Normal [facility] CBC panel Auto (Bld)on 09-01 Erythrocyte distribution width (RBC) [Ratio] 11.9 % Normal 11.5-15.0 [facility] Comment on above: Order Comment: Speci men Type: BLOOD SPECIMENOrdering Facility: [facility] Address: [address] [place] [address] Performed By: #### 5 8410-2 ####[facility] LABORATORYCLIA [id number] [place] [address] [place] Hematocrit (Bld) [Volume fraction] 33.4 % Low 39.0-51.0 [facility] Comment on above: Order Comment: Speci men Type: BLOOD SPECIMENOrdering Facility: [facility] Address: [address] [place] [address] Performed By: #### 5 8410-2 ####[facility] LABORATORYCLIA [id number] [place] [address] [place] Hemoglobin (Bld) [Mass/Vol] 11.2 g/dL Low 13.0-17.0 [facility] Comment on above: Order Comment: Speci men Type: BLOOD SPECIMENOrdering Facility: [facility] Address: [address] [place] [address] Performed By: #### 5 8410-2 ####[facility] LABORATORYCLIA [id number] [place] [address] [place] MCH (RBC) [Entitic mass] 30.0 pg Normal 26.0-34.0 [facility] Comment on above: Order Comment: Speci men Type: BLOOD SPECIMENOrdering Facility: [facility] Address: [address] [place] [address] Performed By: #### 5 8410-2 ####[facility] LABORATORYCLIA [id number] [address] [place] MCHC (RBC) [Mass/Vol] 33.5 g/dL Normal 30.5-36.0 [facility] Comment on above: Order Comment: Speci men Type: BLOOD SPECIMENOrdering Facility: [facility] Address: [address] [place] [address] Performed By: #### 5 8410-2 ####[facility] LABORATORYCLIA [id number] [address] [place] [facility] MCV (RBC) [Entitic vol] 89.5 fL Normal 80.0-100.0 [facility] Comment on above: Order Comment: Speci men Type: BLOOD SPECIMENOrdering Facility: [facility] Address: [address] [place] [address] Performed By: #### 5 8410-2 ####[facility] LABORATORYCLIA [id number] [address] Nucleated RBC (Bld) [#/Vol] 10*3/uL Normal <0.01 [facility] Comment on above: Order Comment: Speci men Type: BLOOD SPECIMENOrdering Facility: [facility] Address: [address] [place] [address] Performed By: #### 5 8410-2 ####[facility] LABORATORYCLIA [id number] [address] Platelet mean volume (Bld) [Entitic vol] 9.9 fL Normal 9.0-12.7 [facility] Comment on above: Order Comment: Speci men Type: BLOOD SPECIMENOrdering Facility: [facility] Address: [address] [place] [address] Performed By: #### 5 8410-2 ####[facility] LABORATORYCLIA [id number] [address] [place] [facility] Platelets (Bld) [#/Vol] 145 10*3/uL Low 150-400 [facility] Comment on above: Order Comment: Speci men Type: BLOOD SPECIMENOrdering Facility: [facility] Address: [address] [place] [address] Performed By: #### 5 8410-2 ####[facility] LABORATORYCLIA [id number] [address] OF [facility] RBC (Bld) [#/Vol] 3.73 10*6/uL Low 4.20-6.00 [facility] Comment on above: Order Comment: Speci men Type: BLOOD SPECIMENOrdering Facility: [facility] Address: [address] [place] [address] Performed By: #### 5 8410-2 ####[facility] LABORATORYCLIA [id number] [address] WBC (Bld) [#/Vol] 7.68 10*3/uL Normal 3.70-11.00 [facility] Comment on above: Order Comment: Speci men Type: BLOOD SPECIMENOrdering Facility: [facility] Address: [address] [place] [address] Performed By: #### 5 8410-2 ####[facility] LABORATORYCLIA [id number] [address] Comprehensive metabolic 2000 panelon 09-01-2024 Albumin [Mass/Vol] 3.4 g/dL Low 3.9-4.9 [facility] Comment on above: Order Comment: Speci men Type: BLOOD SPECIMENOrdering Facility: [facility] Address: [address] [place] [address] Performed By: #### 1 9123-9, 2777-1, 49831-0 ####[facility] LABORATORYCLIA [id number] [address] ALP [Catalytic activity/Vol] 47 U/L Normal 38-113 [facility] Comment on above: Order Comment: Speci men Type: BLOOD SPECIMENOrdering Facility: [facility] Address: [address] [place] [address] Performed By: #### 1 9123-9, 2776-03, 03167-2 ####[facility] LABORATORYCLIA [id number] [place] [address] [place] ALT With P-5'-P [Catalytic activity/Vol] 9 U/L Low 10-54 [facility] Comment on above: Order Comment: Speci men Type: BLOOD SPECIMENOrdering Facility: [facility] Address: [address] [place] [address] Performed By: #### 1 9123-9, 27709-15, ####[facility] LABORATORYCLIA [id number] [address] [place] [facility] Anion gap [Moles/Vol] 10 mmol/L Normal 8-15 [facility] Comment on above: Order Comment: Speci men Type: BLOOD SPECIMENOrdering Facility: [facility] Address: [address] [place] [address] Performed By: #### 1 9123-9, 2776-03, ####[facility] LABORATORYCLIA [id number] [address] [place] AST With P-5'-P [Catalytic activity/Vol] 14 U/L Normal 14-40 [facility] Comment on above: Order Comment: Speci men Type: BLOOD SPECIMENOrdering Facility: [facility] Address: [address] [place] [address] Performed By: #### 1 9123-9, 2776-03, 89097-6 ####[facility] LABORATORYCLIA [id number] [place] [address] [place] Bilirubin [Mass/Vol] 0.6 mg/dL Normal 0.2-1.3 [facility] Comment on above: Order Comment: Speci men Type: BLOOD SPECIMENOrdering Facility: [facility] Address: [address] [place] [address] Performed By: #### 1 9123-9, 2776-03, 22240-7 ####[facility] LABORATORYCLIA [id number] [place] [address] [place] Calcium [Mass/Vol] 8.5 mg/dL Normal 8.5-10.2 [facility] Comment on above: Order Comment: Speci men Type: BLOOD SPECIMENOrdering Facility: [facility] Address: [address] [place] [address] Performed By: #### 1 9123-9, 2776-03, 52238-2 ####[facility] LABORATORYCLIA [id number] [place] [address] [place] Chloride [Moles/Vol] 106 mmol/L Normal 98-107 [facility] Comment on above: Order Comment: Speci men Type: BLOOD SPECIMENOrdering Facility: [facility] Address: [address] [place] [address] Performed By: #### 1 9123-9, 2776-03, 65722-4 ####[facility] LABORATORYCLIA [id number] [place] [address] [place] CO2 [Moles/Vol] 23 mmol/L Normal 22-30 [facility] Comment on above: Order Comment: Speci men Type: BLOOD SPECIMENOrdering Facility: [facility] Address: [address] [place] [address] Performed By: #### 1 9123-9, 2776-03, 56515-4 ####[facility] LABORATORYCLIA [id number] [place] [address] [place] Creatinine [Mass/Vol] 1.29 mg/dL High 0.73-1.22 [facility] Comment on above: Order Comment: Speci men Type: BLOOD SPECIMENOrdering Facility: [facility] Address: [address] [place] [address] Performed By: #### 1 9123-9, 27709-15, 95855-0 ####[facility] LABORATORYCLIA [id number] [place] [address] [place] Creatinine and Glomerular filtration rate.predicted panel (S/P/Bld) 55 mL/min/1.73m??? Low >=60 [facility] Comment on above: Order Comment: Kendrafritz walker Type: BLOOD SPECIMENOrdering Facility: [facility] Address: [address] [place] [address] Result Comment: Nohemi mated Glomerular Filtration Rate (eGFR) is calculated using the 2020 CKD-EPI creatinine equation. This equation utilizes serum creatinine, sex, and age as parameters. The creatinine assay has traceable calibration to isotope dilution-mass spectrometry. Refer to KDIGO guidelines for clinical interpretation. In patients with unstable renal function, e.g. those with acute kidney injury, the eGFR may not accurately reflect actual GFR. Performed By: #### 1 9123-9, 2777-1, 43585-5 ####[facility] LABORATORYCLIA [id number] [place] [address] [place] Glucose [Mass/Vol] 79 mg/dL Normal 74-99 [facility] Comment on above: Order Comment: Karyn walker Type: BLOOD SPECIMENOrdering Facility: [facility] Address: [address] [place] [address] Result Comment: The [place] Diabetes Association (ADA) provides guidance for cutoff values for fasting glucose and random glucose. The ADA defines fasting as no caloric intake for at least 8 hours. Fasting plasma glucose results between 100 to 125 mg/dL indicate increased risk for diabetes (prediabetes).Fasting plasma glucose results greater than or equal to 126 mg/dL meet the criteria for diagnosis of diabetes. In the absence of unequivocal hyperglycemia, results should be confirmed by repeat testing. In a patient with classic symptoms of hyperglycemia or hyperglycemic crisis, random plasma glucose results greater than or equal to 200 mg/dL meet the criteria for diagnosis of diabetes.Reference: Standards of Medical Care in Diabetes 2016, [place] Diabetes Association. Diabetes Care. 2016.39(Suppl 1). Performed By: #### 1 9123-9, 2777-1, 69918-7 ####[facility] LABORATORYCLIA [id number] [place] [id number] [place] Potassium [Moles/Vol] 4.4 mmol/L Normal 3.7-5.1 [facility] Comment on above: Order Comment: Speci men Type: BLOOD SPECIMENOrdering Facility: [facility] Address: [address] [place] [address] Performed By: #### 1 9123-9, 2776-03, ####[facility] LABORATORYCLIA [id number] [place] [address] [place] Protein [Mass/Vol] 5.7 g/dL Low 6.3-8.0 [facility] Comment on above: Order Comment: Speci men Type: BLOOD SPECIMENOrdering Facility: [facility] Address: [address] [place] [address] Performed By: #### 1 9123-9, 2776-03, ####[facility] LABORATORYCLIA [id number] [place] [address] [place] Sodium [Moles/Vol] 139 mmol/L Normal 136-144 [facility] Comment on above: Order Comment: Speci men Type: BLOOD SPECIMENOrdering Facility: [facility] Address: [address] [place] [address] Performed By: #### 1 9123-9, 2776-03, ####[facility] LABORATORYCLIA [id number] [place] [address] [place] Urea nitrogen [Mass/Vol] 22 mg/dL Normal 9-24 [facility] Comment on above: Order Comment: Speci men Type: BLOOD SPECIMENOrdering Facility: [facility] Address: [address] [place] [address] Performed By: #### 1 9123-9, 2776-03, 27637-6 ####[facility] LABORATORYCLIA [id number] [place] [address] [place] Magnesium SerPl-mCncon 09-01 Magnesium [Mass/Vol] 2.1 mg/dL Normal 1.7-2.3 [facility] Comment on above: Order Comment: Speci men Type: BLOOD SPECIMENOrdering Facility: [facility] Address: [address] [place] [id number] Performed By: #### 1 9123-9, 2777-1, 49205-4 ####[facility] LABORATORYCLIA [id number] [address] [place] Phosphate SerPl-mCncon 09-01 Phosphate [Mass/Vol] 3.6 mg/dL Normal 2.7-4.8 [facility] Comment on above: Order Comment: Speci men Type: BLOOD SPECIMENOrdering Facility: [facility] Address: [address] [place] [address] Performed By: #### 1 9123-9, 2777-1, 48392-8 ####[facility] LABORATORYCLIA [id number] [address] [place] THERAPY NTon 09-01-2024 THERAPY NT Normal [facility] ALLIED HEALTHon 08-31-2024 ALLIED HEALTH Normal [facility] ALLIED HEALTH Normal [facility] ANES POSTPROC EVALon 025 ANES POSTPROC EVAL Normal [facility] ANES PRE-OPon 08-31-2024 ANES PRE-OP Normal [facility] BRIEF OP NOTon 08-31-2024 BRIEF OP NOT Normal [facility] CBC panel Auto (Bld)on 08-31 Erythrocyte distribution width (RBC) [Ratio] 11.9 % Normal 11.5-15.0 [facility] Comment on above: Order Comment: Speci men Type: BLOOD SPECIMENOrdering Facility: [facility] Address: [address] [place] [id number] Performed By: #### 5 8410-2 ####[facility] LABORATORYCLIA [id number] [address] [place] Hematocrit (Bld) [Volume fraction] 31.6 % Low 39.0-51.0 [facility] Comment on above: Order Comment: Speci men Type: BLOOD SPECIMENOrdering Facility: [facility] Address: [address] [place] [address] Performed By: #### 5 8410-2 ####[facility] LABORATORYCLIA [id number] [address] [place] [facility] Hemoglobin (Bld) [Mass/Vol] 10.5 g/dL Low 13.0-17.0 [facility] Comment on above: Order Comment: Speci men Type: BLOOD SPECIMENOrdering Facility: [facility] Address: [address] [place] [address] Performed By: #### 5 8410-2 ####[facility] LABORATORYCLIA [id number] [address] OF [facility] MCH (RBC) [Entitic mass] 30.3 pg Normal 26.0-34.0 [facility] Comment on above: Order Comment: Speci men Type: BLOOD SPECIMENOrdering Facility: [facility] Address: [address] [place] [address] Performed By: #### 5 8410-2 ####[facility] LABORATORYCLIA [id number] [address] MCHC (RBC) [Mass/Vol] 33.2 g/dL Normal 30.5-36.0 [facility] Comment on above: Order Comment: Speci men Type: BLOOD SPECIMENOrdering Facility: [facility] Address: [address] [place] [address] Performed By: #### 5 8410-2 ####[facility] LABORATORYCLIA [id number] [address] MCV (RBC) [Entitic vol] 91.1 fL Normal 80.0-100.0 [facility] Comment on above: Order Comment: Speci men Type: BLOOD SPECIMENOrdering Facility: [facility] Address: [address] [place] [address] Performed By: #### 5 8410-2 ####[facility] LABORATORYCLIA [id number] [address] Nucleated RBC (Bld) [#/Vol] 10*3/uL Normal <0.01 [facility] Comment on above: Order Comment: Speci men Type: BLOOD SPECIMENOrdering Facility: [facility] Address: [address] [place] [address] Performed By: #### 5 8410-2 ####[facility] LABORATORYCLIA [id number] [address] [place] Platelet mean volume (Bld) [Entitic vol] 9.5 fL Normal 9.0-12.7 [facility] Comment on above: Order Comment: Speci men Type: BLOOD SPECIMENOrdering Facility: [facility] Address: [address] [place] [address] Performed By: #### 5 8410-2 ####[facility] LABORATORYCLIA [id number] [address] [place] Platelets (Bld) [#/Vol] 120 10*3/uL Low 150-400 [facility] Comment on above: Order Comment: Speci men Type: BLOOD SPECIMENOrdering Facility: [facility] Address: [address] [place] [address] Performed By: #### 5 8410-2 ####[facility] LABORATORYCLIA [id number] [place] [address] [place] RBC (Bld) [#/Vol] 3.47 10*6/uL Low 4.20-6.00 [facility] Comment on above: Order Comment: Speci men Type: BLOOD SPECIMENOrdering Facility: [facility] Address: [address] [place] [address] Performed By: #### 5 8410-2 ####[facility] LABORATORYCLIA [id number] [place] [address] [place] WBC (Bld) [#/Vol] 6.84 10*3/uL Normal 3.70-11.00 [facility] Comment on above: Order Comment: Speci men Type: BLOOD SPECIMENOrdering Facility: [facility] Address: [address] [place] [address] Performed By: #### 5 8410-2 ####[facility] LABORATORYCLIA [id number] [address] [place] CONSULTon 08-31-2024 CONSULT Normal [facility] CT BRAIN ATTACK WO IVCONon 0 08-31-2024 CT BRAIN ATTACK WO IVCON Normal [facility] CTA HEAD W IVCONon 5 CTA HEAD W IVCON Normal [facility] CTA NECK W IVCONon 5 CTA NECK W IVCON Normal [facility] Comprehensive metabolic 2000 panelon 08-31-2024 Albumin [Mass/Vol] 3.1 g/dL Low 3.9-4.9 [facility] Comment on above: Order Comment: Speci men Type: BLOOD SPECIMENOrdering Facility: [facility] Address: [address] [place] [address] Performed By: #### 2 4323-8, LIPNF, , 2776-03, TSHRF ####[facility] LABORATORYCLIA [id number] [place] [address] [place] ALP [Catalytic activity/Vol] 36 U/L Low 38-113 [facility] Comment on above: Order Comment: Speci men Type: BLOOD SPECIMENOrdering Facility: [facility] Address: [address] [place] [address] Performed By: #### 2 4323-8, LIPNF, , 2776-03, TSHRF ####[facility] LABORATORYCLIA [id number] [place] [address] [place] ALT With P-5'-P [Catalytic activity/Vol] 5 U/L Low 10-54 [facility] Comment on above: Order Comment: Speci men Type: BLOOD SPECIMENOrdering Facility: [facility] Address: [address] [place] [address] Performed By: #### 2 4323-8, LIPNF, , 2776-03, TSHRF ####[facility] LABORATORYCLIA [id number] [place] [address] [place] Anion gap [Moles/Vol] 9 mmol/L Normal 8-15 [facility] Comment on above: Order Comment: Speci men Type: BLOOD SPECIMENOrdering Facility: [facility] Address: [address] [place] [address] Performed By: #### 2 4323-8, LIPNF, , 2776-03, TSHRF ####[facility]ORATORYCLIA [id number] [place] [address] [place] AST With P-5'-P [Catalytic activity/Vol] 11 U/L Low 14-40 [facility] Comment on above: Order Comment: Speci men Type: BLOOD SPECIMENOrdering Facility: [facility] Address: [address] [place] [address] Performed By: #### 2 4323-8, LIPNF, , 2776-03, TSHRF ####[facility]ITAL[facility]IA [id number] [place] [address] [place] Bilirubin [Mass/Vol] 0.5 mg/dL Normal 0.2-1.3 [facility] Comment on above: Order Comment: Speci men Type: BLOOD SPECIMENOrdering Facility: [facility] Address: [address] [place] [address] Performed By: #### 2 4323-8, LIPNF, , 2776-03, TSHRF ####[facility]ITALCLIA [id number] [place] [address] [place] Calcium [Mass/Vol] 7.4 mg/dL Low 8.5-10.2 [facility] Comment on above: Order Comment: Speci men Type: BLOOD SPECIMENOrdering Facility: [facility] Address: [address] [place] [address] Performed By: #### 2 4323-8, LIPNF, , 2776-03, TSHRF ####[facility] LABORATORYCLIA [id number] [place] [address] [place] Chloride [Moles/Vol] 113 mmol/L High 98-107 [facility] Comment on above: Order Comment: Speci men Type: BLOOD SPECIMENOrdering Facility: [facility] Address: [address] [place] [address] Performed By: #### 2 4323-8, LIPNF, 58104-6, 2776-1, TSHRF ####[facility] LABORATORYCLIA [id number] [place] [address] [place] [facility] CO2 [Moles/Vol] 21 mmol/L Low 22-30 [facility] Comment on above: Order Comment: Speci men Type: BLOOD SPECIMENOrdering Facility: [facility] Address: [address] [place] [address] Performed By: #### 2 4323-8, LIPNF, 61382-2, 2776-, TSHRF ####[facility]CLIA [id number] [address] Creatinine [Mass/Vol] 1.00 mg/dL Normal 0.73-1.22 [facility] Comment on above: Order Comment: Speci men Type: BLOOD SPECIMENOrdering Facility: [facility] Address: [address] [place] [address] Performed By: #### 2 4323-8, LIPNF, 61238-5, 2776-, TSHRF ####[facility]PITALIA [id number] [address] Creatinine and Glomerular filtration rate.predicted panel (S/P/Bld) 75 mL/min/1.73m??? Normal >=60 [facility] Comment on above: Order Comment: Speci men Type: BLOOD SPECIMENOrdering Facility: [facility] Address: [address] [place] [address] Result Comment: Nohemi mated Glomerular Filtration Rate (eGFR) is calculated using the 2020 CKD-EPI creatinine equation. This equation utilizes serum creatinine, sex, and age as parameters. The creatinine assay has traceable calibration to isotope dilution-mass spectrometry. Refer to KDIGO guidelines for clinical interpretation. In patients with unstable renal function, e.g. those with acute kidney injury, the eGFR may not accurately reflect actual GFR. Performed By: #### 2 4323-8, LIPNF, 59012-1, 7-1, TSHRF ####[facility]ORATORYCLIA [id number] [place] [address] [place] Glucose [Mass/Vol] 86 mg/dL Normal 74-99 [facility] Comment on above: Order Comment: Speci men Type: BLOOD SPECIMENOrdering Facility: [facility] Address: [address] [place], [place] [address] Result Comment: The [place] Diabetes Association (ADA) provides guidance for cutoff values for fasting glucose and random glucose. The ADA defines fasting as no caloric intake for at least 8 hours. Fasting plasma glucose results between 100 to 125 mg/dL indicate increased risk for diabetes (prediabetes).Fasting plasma glucose results greater than or equal to 126 mg/dL meet the criteria for diagnosis of diabetes. In the absence of unequivocal hyperglycemia, results should be confirmed by repeat testing. In a patient with classic symptoms of hyperglycemia or hyperglycemic crisis, random plasma glucose results greater than or equal to 200 mg/dL meet the criteria for diagnosis of diabetes.Reference: Standards of Medical Care in Diabetes 2016, [place] Diabetes Association. Diabetes Care. 2016.39(Suppl 1). Performed By: #### 2 4323-8, LIPNF, , 2776-1, TSHRF ####[facility] LABORATORYCLIA [id number] [place] [address] [place] Potassium [Moles/Vol] 3.5 mmol/L Low 3.7-5.1 [facility] Comment on above: Order Comment: Speci men Type: BLOOD SPECIMENOrdering Facility: [facility] Address: [address] [place] [address] Performed By: #### 2 4323-8, LIPNF, , 2776-1, TSHRF ####[facility] LABORATORYCLIA [id number] [place] [id number] [place] Protein [Mass/Vol] 4.9 g/dL Low 6.3-8.0 [facility] Comment on above: Order Comment: Speci men Type: BLOOD SPECIMENOrdering Facility: [facility] Address: [address] [place], [place] [address] Performed By: #### 2 4323-8, LIPNF, 25265-6, 2777-1, TSHRF ####[facility]ORATORYCLIA [id number] [place] [address] [place] Sodium [Moles/Vol] 143 mmol/L Normal 136-144 [facility] Comment on above: Order Comment: Speci men Type: BLOOD SPECIMENOrdering Facility: [facility] Address: [address] [place] [address] Performed By: #### 2 4323-8, LIPNF, , 2776-03, TSHRF ####[facility]ORATORYCLIA [id number] [place] [address] [place] Urea nitrogen [Mass/Vol] 22 mg/dL Normal 9-24 [facility] Comment on above: Order Comment: Speci men Type: BLOOD SPECIMENOrdering Facility: [facility] Address: [address] [place] [address] Performed By: #### 2 4323-8, LIPNF, , 2776-03, TSHRF ####[facility]ORATORYCLIA [id number] [place] [address] [place] HISTORY PHYSICALon HISTORY PHYSICAL Normal [facility] HbA1c (Bld)on 08-31-2024 Average glucose Estimated from glycated hemoglobin (Bld) [Mass/Vol] 117 mg/dL Normal [facility] Comment on above: Order Comment: Speci men Type: BLOOD SPECIMENOrdering Facility: [facility] Address: [address] [place] [address] Result Comment: eAG: (Estimated average glucose) is a calculated value from HgbA1c and is retail service representative of the average blood glucose level in the last 2-3 month period. Performed By: #### 5 5454-3 ####[facility] LABCLIA [id number] [address] [place] HbA1c (Bld) [Mass fraction] 5.7 % High 4.3-5.6 [facility] Comment on above: Order Comment: Speci men Type: BLOOD SPECIMENOrdering Facility: [facility] Address: [address] [place] [address] Result Comment: Amer [place] Diabetes Association guidelines indicate that patients with HgbA1c in the range 5.7-6.4% are at increased risk for development of diabetes, and intervention by lifestyle modification may be beneficial. HgbA1c greater or equal to 6.5% is considered diagnostic of diabetes. Performed By: #### 5 5454-3 ####[facility] LABCLIA [id number] [address] [place] LIPID PANEL, NONFASTINGon Cholesterol [Mass/Vol] 116 mg/dL Normal <200 [facility] Comment on above: Order Comment: Karyn walker Type: BLOOD SPECIMENOrdering Facility: [facility] Address: [address] [place] [address] Result Comment: <200 mg/dL, Desirable 200-239 mg/dL, Borderline high>239 mg/dL, High Performed By: #### 2 4323-8, LIPNF, 84997-2, 2777-1, TSHRF ####[facility]ORATORYCLIA [id number] [address] [place] HDL CHOLESTEROL, NF 34 mg/dL Low >39 [facility] Comment on above: Order Comment: Karyn walker Type: BLOOD SPECIMENOrdering Facility: [facility] Address: [address] [place] [address] Result Comment: 40-5 9 mg/dL, Acceptable>59 mg/dL, High: Negative risk factor for coronary heart disease<40 mg/dL, Low: Positive risk factor for coronary heart disease Performed By: #### 2 4323-8, LIPNF, 54497-6, 2777-1, TSHRF ####[facility]ORATORYCLIA [id number] [address] OF [facility] LDL CHOLESTEROL CALCULATED, NF 64 mg/dL Normal <100 [facility] Comment on above: Order Comment: Karyn walker Type: BLOOD SPECIMENOrdering Facility: [facility] Address: [address] [place] [address] Result Comment: <100 mg/dL, Optimal 100-129 mg/dL, Near optimal/above optimal 130-159 mg/dL, Borderline high 160-189 mg/dL, High>189 mg/dL, Very highSecondary prevention optimal LDL Cholesterol levels are recommended to be <70 mg/dLLDL cholesterol is calculated using the Mcnair-NIH equation. Performed By: #### 2 4323-8, LIPNF, 78274-8, 7-1, TSHRF ####[facility]ORATORYCLIA [id number] [address] STATES OF [facility] LDL/HDL RATIO, NF 1.88 mg/dL Normal <2.54 [facility] Comment on above: Order Comment: Speci men Type: BLOOD SPECIMENOrdering Facility: [facility] Address: [address] [place] [address] Result Comment: Giancarloe yonny:1. National Cholesterol Education Program ATP III Guideline At-A-Glance Quick Desk Reference: National Heart, Lung, and Blood Rowley. National Institutes of Health. 2001: NIH Publication No. 01-3305.2. An International Atherosclerosis Society position paper: global recommendations for the management of dyslipidemia: executive summary, Atherosclerosis. 2014: 232(2):410-413. Performed By: #### 2 4323-8, LIPNF, , 2776-03, TSHRF ####[facility]ORATORYCLIA [id number] [address] STATES [facility] NON HDL CHOL, NF 82 mg/dL Normal <130 [facility] Comment on above: Order Comment: Karyn walker Type: BLOOD SPECIMENOrdering Facility: [facility] Address: [address] [place] [address] Result Comment: <130 mg/dL, Optimal 130-159 mg/dL, Near optimal/above optimal 160-189 mg/dL, Borderline high 190-219 mg/dL, High>219 mg/dL, Very highSecondary prevention optimal non HDL Cholesterol levels are recommended to be <100 mg/dL Performed By: #### 2 4323-8, LIPNF, 17420-2, 7-1, TSHRF ####[facility]ORATORYCLIA [id number] [place] [address] [place] T CHOL/HDL RATIO NF 3.41 mg/dL Normal <5.10 [facility] Comment on above: Order Comment: Speci men Type: BLOOD SPECIMENOrdering Facility: [facility] Address: [address] [place] [address] Performed By: #### 2 4323-8, LIPNF, 04256-0, 2777-1, TSHRF ####[facility]ORATORYCLIA [id number] [address] [place] TRIGLYCERIDES, NF 91 mg/dL Normal <150 [facility] Comment on above: Order Comment: Speci men Type: BLOOD SPECIMENOrdering Facility: [facility] Address: [address] [place] [address] Result Comment: <150 mg/dL, Normal 150-199 mg/dL, Borderline high 200-499 mg/dL, High>499 mg/dL, Very high Performed By: #### 2 4323-8, LIPNF, 85328-1, 7-1, TSHRF ####[facility]ORATORYCLIA [id number] [address] [place] VLDL CHOLESTEROL, NF 13 mg/dL Normal <30 [facility] Comment on above: Order Comment: Speci men Type: BLOOD SPECIMENOrdering Facility: [facility] Address: [address] [place] [address] Performed By: #### 2 4323-8, LIPNF, 05212-7, 7-1, TSHRF ####[facility]ORATORYCLIA [id number] [address] [place] Magnesium SerPl-mCncon 08-31 Magnesium [Mass/Vol] 1.7 mg/dL Normal 1.7-2.3 [facility] Comment on above: Order Comment: Speci men Type: BLOOD SPECIMENOrdering Facility: [facility] Address: [address] [place] [address] Performed By: #### 2 4323-8, LIPNF, 20495-8, 2777-1, TSHRF ####[facility]ORATORYCLIA [id number] [address] [place] NIL CAROTID CEREBRAL UNILATE RALon 08-31-2024 NIL CAROTID CEREBRAL UNILATERAL Normal [facility] NIL IR US GUIDE FOR VASC ACC ESSon 08-31-2024 NIL IR US GUIDE FOR VASC ACCESS Normal [facility] NIL NON SELECT NEURO W/WO AR Dee 08-31-2024 NIL NON SELECT NEURO W/WO ARCH Normal [facility] NIL UNI VERT-SC/INOM INJECTo n 08-31-2024 NIL UNI VERT-SC/INOM INJECT Normal [facility] NURSING PROGon 08-31-2024 NURSING PROG Normal [facility] PT panel Coag (PPP)on 2024 INR Coag (PPP) [Relative time] 1.1 {INR} Normal 0.9-1.3 [facility] Comment on above: Order Comment: Speci men Type: BLOOD SPECIMENOrdering Facility: [facility] Address: [address] [place] [address] Result Comment: Milla min K Antagonist (VKA) Therapeutic Range: INR 2 to 3 (Target INR of 2.5)Note: For patients treated with VKA drugs, such as warfarin, the [place] College of Chest [employer]icians 2012 Guideline recommends a therapeutic INR range of 2 to 3 (target INR of 2.5). This recommendation includes high-risk patients with antiphospholipid syndrome with previous arterial or venous thromboembolism, current-generation mechanical or bioprosthetic aortic heart valve replacement.Note: Patients with mechanical aortic valve replacement and additional risk factors for thromboembolic events (atrial fibrillation, previous thromboembolism, LV dysfunction, hypercoagulable conditions) or an older generation mechanical AVR (i.e., ball in-Cage) or any mechanical MVR should have a INR therapeutic range of 2.5 to 3.5 (target INR of 3).Normatt GH, et al. Chest 2012, 141:7S-47SNishimura RA, et al. JACC 2017, 70: 252-289 Performed By: #### 3 4528-0, 64732-9 ####[facility]ORATORYCLIA [id number] [place] [address] [place] PT Coag (PPP) [Time] 11.7 s Normal 9.7-13.0 [facility] Comment on above: Order Comment: Speci men Type: BLOOD SPECIMENOrdering Facility: [facility] Address: [address] [place] [address] Performed By: #### 3 4528-0, 05591-2 ####[facility]ORATORYCLIA [id number] [place] [address] [place] Phosphate SerPl-mCncon 08-31 Phosphate [Mass/Vol] 2.4 mg/dL Low 2.7-4.8 [facility] Comment on above: Order Comment: Speci men Type: BLOOD SPECIMENOrdering Facility: [facility] Address: [address] [place] [address] Performed By: #### 2 4323-8, LIPNF, 19316-8, 2777-1, TSHRF ####[facility]ORATORYCLIA [id number] [address] [place] STAPHYLOCOCCUS AUREUS AND MR SA SCREEN, PCR, NASALon 08-31-2024 S. aureus and MRSA panel MATILDE+probe (Nose) Not detected Normal Not Detected [facility] Comment on above: Order Comment: Speci men Type: SWABOrdering Facility: [facility] Address: [address] [place] [address] Performed By: #### S APCR ####[facility]ORATORYCLIA [id number] [place] [address] [place] THERAPY NTon 08-31-2024 THERAPY NT Normal [facility] THERAPY NT Normal [facility] TOXICOLOGY SCREEN, ROUTINE U RINEon 08-31-2024 Amphetamines Confirm (U) [Mass/Vol] Negative Normal Negative [facility] Comment on above: Order Comment: Speci men Type: URINE SPECIMENOrdering Facility: [facility] Address: [address] [place] [address] Result Comment: Cuto ff threshold at 1000 ng/mL. Performed By: #### U TOX2 ####[facility]ORATORYCLIA [id number] [address] [place] BARBITURATES, URINE Negative Normal Negative [facility] Comment on above: Order Comment: Speci men Type: URINE SPECIMENOrdering Facility: [facility] Address: [address] [place] [address] Result Comment: Cuto ff threshold at 200 ng/mL. Performed By: #### U TOX2 ####[facility]ATORYCLIA [id number] [place] [address] [place] BENZODIAZEPINES, UR Negative Normal Negative [facility] Comment on above: Order Comment: Speci men Type: URINE SPECIMENOrdering Facility: [facility] Address: [address] [place] [address] Result Comment: Cuto ff threshold at 200 ng/mL. Performed By: #### U TOX2 ####[facility] [facility]ATORYCLIA [id number] [place] [address] [place] Cannabinoids Screen Ql (U) Negative Normal Negative [facility] Comment on above: Order Comment: Speci men Type: URINE SPECIMENOrdering Facility: [facility] Address: [address] [place] [address] Result Comment: Cuto ff threshold at 50 ng/mL. Performed By: #### U TOX2 ####[facility] [facility]ATORYCLIA [id number] [place] [address] [place] Cocaine Ql (U) Negative Normal Negative [facility] Comment on above: Order Comment: Speci men Type: URINE SPECIMENOrdering Facility: [facility] Address: [address] [place] [address] Result Comment: Cuto ff threshold at 300 ng/mL. Performed By: #### U TOX2 ####[facility] [facility]ATORYCLIA [id number] [place] [address] [place] Ethanol (U) [Mass/Vol] <11 Normal <11 [facility] Comment on above: Order Comment: Speci men Type: URINE SPECIMENOrdering Facility: [facility] Address: [address] [place] [address] Performed By: #### U TOX2 ####[facility] [facility]ATORYCLIA [id number] [address] OF [facility] Opiates Screen Ql (U) Negative Normal Negative [facility] Comment on above: Order Comment: Speci men Type: URINE SPECIMENOrdering Facility: [facility] Address: [address] [place] [address] Result Comment: Cuto ff threshold at 300 ng/mL. Performed By: #### U TOX2 ####[facility]ORATORYCLIA [id number] [address] oxyCODONE cutoff Screen (U) [Mass/Vol] Negative Normal Negative [facility] Comment on above: Order Comment: Speci men Type: URINE SPECIMENOrdering Facility: [facility] Address: [address] [place] [address] Result Comment: Cuto ff threshold at 100 ng/mL. Performed By: #### U TOX2 ####[facility]ORATORYCLIA [id number] [address] Phencyclidine Ql (U) Negative Normal Negative [facility] Comment on above: Order Comment: Speci men Type: URINE SPECIMENOrdering Facility: [facility] Address: [address] [place] [address] Result Comment: Cuto ff threshold at 25 ng/mL. Performed By: #### U TOX2 ####[facility]ORATORYCLIA [id number] [address] [place] TSH W/REFLEX FT4on 5 TSH Qn 1.080 m[IU]/L Normal 0.270-4.200 [facility] Comment on above: Order Comment: Speci men Type: BLOOD SPECIMENOrdering Facility: [facility] Address: [address] [place] [address] Performed By: #### 2 4323-8, LIPNF, 08953-5, 2777-1, TSHRF ####[facility]ORATORYCLIA [id number] [address] [place] Urinalysis complete panel (U )on 08-31-2024 Bilirubin Ql (U) Negative Normal Negative [facility] Comment on above: Order Comment: Speci men Type: URINE SPECIMENOrdering Facility: [facility] Address: [address] [place] [address] Performed By: #### 2 4356-8 ####[facility]ORATORYCLIA [id number] [address] [place] Clarity (Unsp spec) Clear Normal Clear [facility] Comment on above: Order Comment: Speci men Type: URINE SPECIMENOrdering Facility: [facility] Address: [address] [place] [address] Performed By: #### 2 4356-8 ####[facility]ORATORYCLIA [id number] [address] [place] Color (U) Light Yellow Normal yellow [facility] Comment on above: Order Comment: Speci men Type: URINE SPECIMENOrdering Facility: [facility] Address: [address] [place] [address] Performed By: #### 2 4356-8 ####[facility]ORATORYCLIA [id number] [place] [address] [place] Glucose Test strip (U) [Mass/Vol] Negative Normal Trace, Negative [facility] Comment on above: Order Comment: Speci men Type: URINE SPECIMENOrdering Facility: [facility] Address: [address] [place] [address] Performed By: #### 2 4356-8 ####[facility]ORATORYCLIA [id number] [place] [address] [place] Hemoglobin Ql (U) Trace Normal Negative, Trace [facility] Comment on above: Order Comment: Speci men Type: URINE SPECIMENOrdering Facility: [facility] Address: [address] [place] [address] Performed By: #### 2 4356-8 ####[facility]ORATORYCLIA [id number] [place] [address] [place] Ketones Ql (U) Negative Normal Negative, Trace [facility] Comment on above: Order Comment: Speci men Type: URINE SPECIMENOrdering Facility: [facility] Address: [address] [place] [address] Performed By: #### 2 4356-8 ####[facility]ORATORYCLIA [id number] [address] Leukocyte esterase Test strip Ql (U) Negative Normal Negative, 25 Taras/uL [facility] Comment on above: Order Comment: Speci men Type: URINE SPECIMENOrdering Facility: [facility] Address: [address] [place] [address] Performed By: #### 2 4356-8 ####[facility] LABORATORYCLIA [id number] [place] [facility] Nitrite Ql (U) Negative Normal Negative [facility] Comment on above: Order Comment: Speci men Type: URINE SPECIMENOrdering Facility: [facility] Address: [address] [place] [address] Performed By: #### 2 4356-8 ####[facility] LABORATORYCLIA [id number] [address] [place] pH (U) 5.5 [pH] Normal 5.0-8.0 [facility] Comment on above: Order Comment: Speci men Type: URINE SPECIMENOrdering Facility: [facility] Address: [address] [place] [address] Performed By: #### 2 4356-8 ####[facility] LABORATORYCLIA [id number] [address] Protein (U) [Mass/Vol] Negative Normal Trace , Negative [facility] Comment on above: Order Comment: Speci men Type: URINE SPECIMENOrdering Facility: [facility] Address: [address] [place] [address] Performed By: #### 2 4356-8 ####[facility] LABORATORYCLIA [id number] [address] [place] RBC LM.HPF (Urine sed) [#/Area] 3-5 /HPF Abnormal 0-3 /HPF [facility] Comment on above: Order Comment: Speci men Type: URINE SPECIMENOrdering Facility: [facility] Address: [address] [place] [address] Performed By: #### 2 4356-8 ####[facility] LABORATORYCLIA [id number] [address] Specific gravity (U) [Rel density] 1.017 Normal 1.005-1.030 [facility] Comment on above: Order Comment: Speci men Type: URINE SPECIMENOrdering Facility: [facility] Address: [address] [place] [address] Performed By: #### 2 4356-8 ####[facility] LABORATORYCLIA [id number] [address] Urobilinogen Ql (U) Normal Normal Normal [facility] Comment on above: Order Comment: Speci men Type: URINE SPECIMENOrdering Facility: [facility] Address: [address] [place] [address] Performed By: #### 2 4356-8 ####[facility] LABORATORYCLIA [id number] [address] WBC LM.HPF (Urine sed) [#/Area] 0-5 /HPF Normal 0-5 /HPF [facility] Comment on above: Order Comment: Speci men Type: URINE SPECIMENOrdering Facility: [facility] Address: [address] [place] [address] Performed By: #### 2 4356-8 ####[facility] LABORATORYCLIA [id number] [address] aPTT PPPon 08-31-2024 aPTT Coag (PPP) [Time] 29.6 s Normal 23.0-32.4 [facility] Comment on above: Order Comment: Speci men Type: BLOOD SPECIMENOrdering Facility: [facility] Address: [address] [place] [address] Performed By: #### 3 4528-0, 79199-6 ####[facility] LABORATORYCLIA [id number] [address] ALLIED HEALTHon 08-30-2024 ALLIED HEALTH Normal [facility] Basic metabolic 2000 panelon 08-30-2024 Anion gap [Moles/Vol] 10 mmol/L Normal 8-15 [facility] Comment on above: Order Comment: Speci men Type: BLOOD SPECIMENOrdering Facility: [facility] Address: [address] [place] [address] Performed By: #### 2 4321-2 ####[facility] LABCLIA [id number] [place] [address] [place] Calcium [Mass/Vol] 8.8 mg/dL Normal 8.5-10.2 [facility] Comment on above: Order Comment: Speci men Type: BLOOD SPECIMENOrdering Facility: [facility] Address: [address] [place] [address] Performed By: #### 2 4321-2 ####[facility] LABCLIA [id number] [place] [address] [place] Chloride [Moles/Vol] 106 mmol/L Normal 98-107 [facility] Comment on above: Order Comment: Speci men Type: BLOOD SPECIMENOrdering Facility: [facility] Address: [address] [place] [address] Performed By: #### 2 4321-2 ####[facility] LABCLIA [id number] [place] [address] [place] CO2 [Moles/Vol] 26 mmol/L Normal 22-30 [facility] Comment on above: Order Comment: Speci men Type: BLOOD SPECIMENOrdering Facility: [facility] Address: [address] [place] [address] Performed By: #### 2 4321-2 ####[facility] LABCLIA [id number] [place] [address] [place] Creatinine [Mass/Vol] 1.59 mg/dL High 0.73-1.22 [facility] Comment on above: Order Comment: Speci men Type: BLOOD SPECIMENOrdering Facility: [facility] Address: [address] [place] [address] Performed By: #### 2 4321-2 ####[facility] [employer] LABCLIA [id number] [place] [address] [place] Creatinine and Glomerular filtration rate.predicted panel (S/P/Bld) 43 mL/min/1.73m??? Low >=60 [facility] Comment on above: Order Comment: Karyn walker Type: BLOOD SPECIMENOrdering Facility: [facility] Address: [address] [place] [address] Result Comment: Nohemi mated Glomerular Filtration Rate (eGFR) is calculated using the 2020 CKD-EPI creatinine equation. This equation utilizes serum creatinine, sex, and age as parameters. The creatinine assay has traceable calibration to isotope dilution-mass spectrometry. Refer to KDIGO guidelines for clinical interpretation. In patients with unstable renal function, e.g. those with acute kidney injury, the eGFR may not accurately reflect actual GFR. Performed By: #### 2 4321-2 ####[facility] [employer] LABCLIA [id number] [place] [id number] [place] Glucose [Mass/Vol] 109 mg/dL High 74-99 [facility] Comment on above: Order Comment: Karyn walker Type: BLOOD SPECIMENOrdering Facility: [facility] Address: [address] [place] [address] Result Comment: The [place] Diabetes Association (ADA) provides guidance for cutoff values for fasting glucose and random glucose. The ADA defines fasting as no caloric intake for at least 8 hours. Fasting plasma glucose results between 100 to 125 mg/dL indicate increased risk for diabetes (prediabetes).Fasting plasma glucose results greater than or equal to 126 mg/dL meet the criteria for diagnosis of diabetes. In the absence of unequivocal hyperglycemia, results should be confirmed by repeat testing. In a patient with classic symptoms of hyperglycemia or hyperglycemic crisis, random plasma glucose results greater than or equal to 200 mg/dL meet the criteria for diagnosis of diabetes.Reference: Standards of Medical Care in Diabetes 2016, [place] Diabetes Association. Diabetes Care. 2016.39(Suppl 1). Performed By: #### 2 4321-2 ####[facility] LABCLIA [id number] [place] [address] [place] Potassium [Moles/Vol] 4.3 mmol/L Normal 3.7-5.1 [facility] Comment on above: Order Comment: Speci men Type: BLOOD SPECIMENOrdering Facility: [facility] Address: [address] [place] [address] Performed By: #### 2 4321-2 ####[facility] LABCLIA [id number] [place] [address] [place] Sodium [Moles/Vol] 142 mmol/L Normal 136-144 [facility] Comment on above: Order Comment: Speci men Type: BLOOD SPECIMENOrdering Facility: [facility] Address: [address] [place] [address] Performed By: #### 2 4321-2 ####[facility] LABCLIA [id number] [place] [address] [place] [facility] Urea nitrogen [Mass/Vol] 29 mg/dL High 9-24 [facility] Comment on above: Order Comment: Speci men Type: BLOOD SPECIMENOrdering Facility: [facility] Address: [address] [place] [address] Performed By: #### 2 4321-2 ####[facility] LABCLIA [id number] [place] [address] [place] CBC panel Auto (Bld)on 08-30 Erythrocyte distribution width (RBC) [Ratio] 12.4 % Normal 11.5-15.0 [facility] Comment on above: Order Comment: Speci men Type: BLOOD SPECIMENOrdering Facility: [facility] Address: [address] [place] [address] Performed By: #### 5 8410-2 ####[facility] [place] LABCLIA [id number] [place] [address] [facility] Hematocrit (Bld) [Volume fraction] 34.9 % Low 39.0-51.0 [facility] Comment on above: Order Comment: Speci men Type: BLOOD SPECIMENOrdering Facility: [facility] Address: [address] [place] [address] Performed By: #### 5 8410-2 ####[facility] LABCLIA [id number] [place] [address] [facility] Hemoglobin (Bld) [Mass/Vol] 11.4 g/dL Low 13.0-17.0 [facility] Comment on above: Order Comment: Speci men Type: BLOOD SPECIMENOrdering Facility: [facility] Address: [address] [place] [address] Performed By: #### 5 8410-2 ####[facility] LABCLIA [id number] [place] [address] [facility] MCH (RBC) [Entitic mass] 30.2 pg Normal 26.0-34.0 [facility] Comment on above: Order Comment: Speci men Type: BLOOD SPECIMENOrdering Facility: [facility] Address: [address] [place] [address] Performed By: #### 5 8410-2 ####[facility] LABCLIA [id number] [place] [address] [place] [facility] MCHC (RBC) [Mass/Vol] 32.7 g/dL Normal 30.5-36.0 [facility] Comment on above: Order Comment: Speci men Type: BLOOD SPECIMENOrdering Facility: [facility] Address: [address] [place] [address] Performed By: #### 5 8410-2 ####[facility] LABCLIA [id number] [place] [address] [place] MCV (RBC) [Entitic vol] 92.3 fL Normal 80.0-100.0 [facility] Comment on above: Order Comment: Speci men Type: BLOOD SPECIMENOrdering Facility: [facility] Address: [address] [place] [address] Performed By: #### 5 8410-2 ####[facility] LABCLIA [id number] [place] [address] [place] Platelet mean volume (Bld) [Entitic vol] 9.3 fL Normal 9.0-12.7 [facility] Comment on above: Order Comment: Speci men Type: BLOOD SPECIMENOrdering Facility: [facility] Address: [address] [place] [address] Performed By: #### 5 8410-2 ####[facility] LABCLIA [id number] [place] [address] [place] Platelets (Bld) [#/Vol] 154 10*3/uL Normal 150-400 [facility] Comment on above: Order Comment: Speci men Type: BLOOD SPECIMENOrdering Facility: [facility] Address: [address] [place] [address] Performed By: #### 5 8410-2 ####[facility] LABCLIA [id number] [place] [address] [place] RBC (Bld) [#/Vol] 3.78 10*6/uL Low 4.20-6.00 [facility] Comment on above: Order Comment: Speci men Type: BLOOD SPECIMENOrdering Facility: [facility] Address: [address] [place] [address] Performed By: #### 5 8410-2 ####[facility] LABCLIA [id number] [place] [address] [place] WBC (Bld) [#/Vol] 7.18 10*3/uL Normal 3.70-11.00 [facility] Comment on above: Order Comment: Speci men Type: BLOOD SPECIMENOrdering Facility: [facility] Address: [address] [place] [address] Performed By: #### 5 8410-2 ####[facility] LABCLIA [id number] [place] [address] [place] CONSULTon 08-30-2024 CONSULT Normal [facility] CONSULT Normal [facility] CT BRAIN WO IVCONon 08-31-19 CT BRAIN WO IVCON Normal [facility] CT BRAIN WO IVCON Normal [facility] CT CERVICAL SPINE WO IVCONon 08-30-2024 CT CERVICAL SPINE WO IVCON Normal [facility] ECG COMPLETEon 08-30-2024 ECG COMPLETE Normal [facility] ED NOTEon 08-30-2024 ED NOTE HNO ID: [id number] Author: PATRICIA CAVAZOS, RN Service: Nursing Author Type: Registered Nurse Type: ED Notes Filed: 08/30/2024 21:20 Note Text: Report given to BJ in NSICU. Will take pt to floor after CT is completed Normal [facility] ED NOTE HNO ID: [id number] Author: FARIDEH FERRIS, YUNIOR Service: Nursing Author Type: Registered Nurse Type: ED Notes Filed: 08/30/2024 18:42 Note Text: Xray notified that patient ready for tests Normal [facility] ED NOTE Normal [facility] ED NOTE HNO ID: [id number] Author: MANSI GAITAN, YUNIOR Service: ? Author Type: Registered Nurse Type: ED Notes Filed: 08/30/2024 17:18 Note Text: Bed: 07-ED Expected date: Expected time: Means of arrival: Comments: [place] transfer Normal [facility] ED NOTE HNO ID: [id number] Author: VICKI SANDERS, YUNIOR Service: ? Author Type: Registered Nurse Type: ED Notes Filed: 08/30/2024 16:41 Note Text: [facility] arrives Normal [facility] ED NOTE HNO ID: [id number] Author: VICKI SANDERS RN Service: ? Author Type: Registered Nurse Type: ED Notes Filed: 08/30/2024 15:39 Note Text: ETA 60 min Normal [facility] ED NOTE HNO ID: [id number] Author: JALEN GRIMM RN Service: ? Author Type: Registered Nurse Type: ED Notes Filed: 08/30/2024 14:42 Note Text: Trauma physician paged at [facility] Normal [facility] ED NOTE Normal [facility] ED PROV NOTEon 08-30-2024 ED PROV NOTE Normal [facility] ED PROV NOTE Normal [facility] XR CHEST 1V FRONTALon 2024 XR CHEST 1V FRONTAL Normal [facility] XR PELVIS 1V APon 08-30-2024 XR PELVIS 1V AP Normal [facility] XR SHLDR >/=3V AP/AMY AP/OTH R RTon 08-30-2024 XR SHLDR >/=3V AP/AMY AP/OTHR RT Normal [facility] XR WRIST 3V PA/LAT/OBL RTon 08-30-2024 XR WRIST 3V PA/LAT/OBL RT Normal [facility] CNOVon 08-27-2024 CNOV Normal [facility] CT BRAIN WO IVCONon 08-25-19 CT BRAIN WO IVCON Normal [facility] CT Head WO contraston 2024 IMPRESSION: Postsurgical changes from left-sided craniotomy. Interval resolution of pneumocephalus. Expected evolution of mixed density extra-axial hemorrhage along left cerebral convexity, as detailed above. Persistent 20 mm thickness of the mixed density hemorrhage, reasonably similar to previous examination. Continued short interval follow-up examination is recommended. Apparent new blood products along the anterior cerebral convexities are most likely secondary to resolution of pneumocephalus. Continued short interval follow-up examination is recommended. Unchanged mass effect on left cerebral convexity, with minimal 3 mm midline shift to the right. Global Sales Director: [facility] Transcribe Date/Time: Aug 24 2024 4:22P Dictated by : MONICA LINDO MD This examination was interpreted and the report reviewed and electronically signed by: MONICA LINDO MD on Aug 24 2024 4:34PM [facility] RADIOLOGY [employer] * * *Final Report* * * DATE OF EXAM: Aug 24 2024 10:56AM [facility] 0504 - CT BRAIN WO IVCON / PROCEDURE REASON: Subdural hematoma (HCC) * * * * Physician Interpretation * * * * EXAMINATION: CT BRAIN WO IVCON CLINICAL HISTORY: Follow-up subdural hemorrhage. TECHNIQUE: Serial axial images without IV contrast were obtained from the vertex to the foramen magnum. MQ: CTBWO_3 CT Radiation dose: Integrated Dose-Length Product (DLP) for this visit = 707.24 mGy*cm CT Dose Reduction Employed: No dose reduction techniques were required COMPARISON: 08/11/2024. 08/10/2024. RESULT: Post-operative change: Postsurgical changes from left-sided craniotomy. Interval resolution of pneumocephalus. Expected evolution of mixed density extra-axial hemorrhage along left cerebral convexity, with a slightly decrease in density of the acute hemorrhage. Persistent 20 mm thickness of the mixed density hemorrhage, reasonably similar to previous examination. Apparent new blood products along the anterior cerebral convexities are most likely secondary to resolution of pneumocephalus. Mass effect on left cerebral convexity, with minimal 3 mm midline shift to the right. This is reasonably similar to previous examination. Acute change: No evidence of an acute infarct or other acute parenchymal process. Chronic change: Scattered patchy foci of low attenuation are present within the supratentorial white matter, a nonspecific finding that most commonly represents mild small vessel disease. 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 Parenchyma: There is mild generalized volume loss. Ventricles: Ventricular enlargement concordant with the degree of parenchymal volume loss. Paranasal sinuses and skull base: The visualized paranasal sinuses are grossly clear. The skull base and imaged soft tissues are unremarkable. [facility] [place] Provider, [facility] - 08/24/2024 * * *Final Report* * * DATE OF EXAM: Aug 24 2024 10:56AM [facility] 0504 - CT BRAIN WO IVCON / PROCEDURE REASON: Subdural hematoma (HCC) * * * * Physician Interpretation * * * * EXAMINATION: CT BRAIN WO IVCON CLINICAL HISTORY: Follow-up subdural hemorrhage. TECHNIQUE: Serial axial images without IV contrast were obtained from the vertex to the foramen magnum. MQ: CTBWO_3 CT Radiation dose: Integrated Dose-Length Product (DLP) for this visit = 707.24 mGy*cm CT Dose Reduction Employed: No dose reduction techniques were required COMPARISON: 08/11/2024. 08/10/2024. RESULT: Post-operative change: Postsurgical changes from left-sided craniotomy. Interval resolution of pneumocephalus. Expected evolution of mixed density extra-axial hemorrhage along left cerebral convexity, with a slightly decrease in density of the acute hemorrhage. Persistent 20 mm thickness of the mixed density hemorrhage, reasonably similar to previous examination. Apparent new blood products along the anterior cerebral convexities are most likely secondary to resolution of pneumocephalus. Mass effect on left cerebral convexity, with minimal 3 mm midline shift to the right. This is reasonably similar to previous examination. Acute change: No evidence of an acute infarct or other acute parenchymal process. Chronic change: Scattered patchy foci of low attenuation are present within the supratentorial white matter, a nonspecific finding that most commonly represents mild small vessel disease. 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 Parenchyma: There is mild generalized volume loss. Ventricles: Ventricular enlargement concordant with the degree of parenchymal volume loss. Paranasal sinuses and skull base: The visualized paranasal sinuses are grossly clear. The skull base and imaged soft tissues are unremarkable. IMPRESSION IMPRESSION: Postsurgical changes from left-sided craniotomy. Interval resolution of pneumocephalus. Expected evolution of mixed density extra-axial hemorrhage along left cerebral convexity, as detailed above. Persistent 20 mm thickness of the mixed density hemorrhage, reasonably similar to previous examination. Continued short interval follow-up examination is recommended. Apparent new blood products along the anterior cerebral convexities are most likely secondary to resolution of pneumocephalus. Continued short interval follow-up examination is recommended. Unchanged mass effect on left cerebral convexity, with minimal 3 mm midline shift to the right. Global Sales Director: [employer] Transcribe Date/Time: Aug 24 2024 4:22P Dictated by : MONICA LINDO MD This examination was interpreted and the report reviewed and electronically signed by: MONICA LINDO MD on Aug 24 2024 4:34PM EST [facility] Radiology Study observation (narrative) [facility] CT Head WO contrastOrdered B y: [facility] Provider on 08-24-2024 [facility] CNOVon 08-21-2024 CNOV [facility] -------- CARLITO CHATTERJEE ([id number]) 1940 M Date Time Provider Department 08/21/24 10:00 AM JEFFY BADILLO [facility] During your visit today, we recorded the following information about you: Temperature Pulse Respiration Blood pressure 97.6 degrees 59/minute 18/minute 115/50 Weight 79 kg Jeffy Badillo APRN.CNP 08/21/2024 11:11 AM Signed [facility] Subjective Carlito Chatterjee is a 84 year old male. Patient presents with: Wound Check: Check ariadne in head BP 115/50 Pulse (!) 59 Temp 36.4 ?C (97.6 ?F) Resp 18 Wt 79 kg (174 lb 2.6 oz) SpO2 96% BMI 24.99 kg/m? HPI Nontoxic-appearing 84-year-old male presents urgent care for recheck of surgical wound. Was evaluated by me yesterday. Presents today for reevaluation and wound check. States wound is feeling better. Is less swollen. Less tender. Has been taking antibiotics as prescribed. No fevers. No headache. Overall feels well. Past medical history prescription medications allergies reviewed. Review of Systems Constitutional: Negative for chills, diaphoresis, fatigue and fever. HENT: Negative for congestion, ear discharge, ear pain, rhinorrhea, sinus pressure, sinus pain, sneezing and sore throat. Eyes: Negative for pain, discharge, redness, itching and visual disturbance. Respiratory: Negative for cough, chest tightness, shortness of breath and wheezing. Cardiovascular: Negative for chest pain. Gastrointestinal: Negative for abdominal pain, constipation, diarrhea, nausea and vomiting. Musculoskeletal: Negative for joint swelling, neck pain and neck stiffness. Skin: Negative for rash. Neurological: Negative for dizziness, weakness and headaches. Objective Temp 36.4 ?C (97.6 ?F) Wt 79 kg (174 lb 2.6 oz) BMI 24.99 kg/m? Physical Exam Constitutional: Appearance: Normal appearance. He is normal weight. HENT: Head: Normocephalic. Comments: Surgical wound noted highlighted area. Slight amount of erythema noted. No drainage. No remote redness. No fluctuance Eyes: Conjunctiva/sclera: Conjunctivae normal. Cardiovascular: Rate and Rhythm: Normal rate. Pulmonary: Effort: Pulmonary effort is normal. Musculoskeletal: Cervical back: Normal range of motion. Skin: Findings: No rash. Neurological: General: No focal deficit present. Mental Status: He is alert and oriented to person, place, and time. Mental status is at baseline. {ASSESSMENT/PLAN: 1. Encounter for post surgical wound check - ICD9: V58.49, ICD10: Z48.89 Discussed care plan with provider that patient is following up with next week. Contacted patient. Will continue plan of care as discussed red flags for ER evaluation discussed. Jeffy Badillo APRN.EARLY CHILDHOOD ASSISTANT History and Record Review Clinical information obtained from an independent historian. History obtained from or confirmed by: spouse and parent. External record(s) reviewed: prior outpatient record. Disposition The patient was discharged. OTC Medications were advised: Procedures Allergies As of Date: 08/21/2024 Noted Allergy Reaction CELEBREX (CELECOXIB) 01/29/2014 4 - Hives 9 - Itching Date Reviewed: 08/21/2024 Reviewed by: Edel Lopez LPN - Fully Assessed Reason for Visit: Wound Check [133] Cmt: Check ariadne in head Primary Visit Diagnosis:Encounter for post surgical wound check [Z48.89] Prescriptions as of 08/21/2024 - cephALEXin (KEFLEX) 500 mg capsule Take 1 capsule by mouth four times daily for 5 days. - acetaminophen (TYLENOL) 325 mg tablet 2 tablets by ORAL/FEEDING TUBE route every 4 hours as needed for pain. - bacitracin zinc-polymyxin B (POLYSPORIN) 500-10,000 unit/gram ointment Apply to affected area two times a day. - levETIRAcetam (KEPPRA) 1,000 mg tablet Take 1 tablet by mouth two times a day for 22 doses. - senna-docusate (SENNA-S) 8.6-50 mg per tablet 2 tablets by ORAL/FEEDING TUBE route two times a day for 15 days. - amLODIPine (NORVASC) 10 mg tablet Take 10 mg by mouth once daily. - amoxicillin (AMOXIL) 500 mg capsule TAKE 4 CAPSULES BY MOUTH A SINGLE DOSE 1 HOUR BEFORE DENTAL APPOINTMENT - Fluorouracil 5 % cream APPLY THIN LAYER TO AFFECTED AREAS TWICE A DAY FOR 2 WEEKS. WASH HANDS IMMEDIATELY AFTER EACH APPLICATION - rosuvastatin (CRESTOR) 10 mg tablet Take 10 mg by mouth once daily. - Vardenafil HCl 20 mg tablet TAKE 1 TABLET BY MOUTH DAILY NEEDED PRIOR TO SEX - ramipril (ALTACE) 10 mg capsule Take 10 mg by mouth once daily. - tamsulosin ER (FLOMAX) 0.4 mg cap Take 0.4 mg by mouth once daily. 3 or 4 time a week - metoprolol succinate ER (TOPROL XL) 100 mg Take 100 mg by mouth once daily. Problem List As Of Date 08/21/2024 Noted Resolved CHRONIC HEPATITIS NOS [K73.9] 08/29/2006 Dissecting aneurysm of thoracic aorta, Hank*01/29/2014 08/10/2024 Coronary artery disease with angin (more content not included)... Normal [facility] CNOVon 08-20-2024 CNOV Office Visit (UCWSTR ) -------- CARLITO CHATTERJEE ([id number]) 1940 M Date Time Provider Department 08/20/24 9:15 AM JEFFY BADILLO [facility] During your visit today, we recorded the following information about you: Temperature Pulse Respiration Blood pressure 98.2 degrees 65/minute 20/minute 104/64 Weight 79.1 kg Jeffy Badillo APRN.EARLY CHILDHOOD ASSISTANT 08/20/2024 10:52 AM Signed Subjective HPI Nontoxic-appearing 84-year-old male presents urgent care accompanied by spouse. Requesting ariadne wound check. [facility] on 10 August had a craniotomy to evacuate subdural hematoma. Discharged from the hospital on the . Presents today for wound check. States 2 days ago has noticed some pus coming out of wound. States has been using Polytrim as advised. Has noticed some improvement. Presents today for wound check. Overall is feeling well no fevers. No nausea. No vomiting. No headaches. No visual changes. Past medical history prescription medications allergies reviewed. .Patient presents with: Wound Check: Ariadne in head, need checked PAST MEDICAL HISTORY Diagnosis Date Arrhythmia Coronary artery disease Essential hypertension H/O colonoscopy with polypectomy 04/26/2011 multiple adenomatous polyps - 2 yr surveillance recommended Hyperlipidemia Impaired glucose tolerance Kidney disease PMH - PAST MEDICAL HISTORY OF hep C - treated in 2015. lab confirms virus irradicated. 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 Aguilar COLONOSCOPY FLX DX W/COLLJ SPEC WHEN PFRMD 10/22/2016 Colonoscopy COLONOSCOPY SCREENING 12/23/2023 HERNIA REPAIR HX groin (right) PAST SURGICAL HISTORY OF left knee surgery PAST SURGICAL HISTORY OF 06/09/2000 heart cath PAST SURGICAL HISTORY OF 01/2014 new aorta ascending TONSILLECTOMY PRIMARY/SECONDARY Tonsillectomy ALLERGIES Celebrex [Celecoxib] MEDICATIONS acetaminophen (TYLENOL) 325 mg tablet 2 tablets by ORAL/FEEDING TUBE route every 4 hours as needed for pain. bacitracin zinc-polymyxin B (POLYSPORIN) 500-10,000 unit/gram ointment Apply to affected area two times a day. levETIRAcetam (KEPPRA) 1,000 mg tablet Take 1 tablet by mouth two times a day for 22 doses. senna-docusate (SENNA-S) 8.6-50 mg per tablet 2 tablets by ORAL/FEEDING TUBE route two times a day for 15 days. amLODIPine (NORVASC) 10 mg tablet Take 10 mg by mouth once daily. amoxicillin (AMOXIL) 500 mg capsule TAKE 4 CAPSULES BY MOUTH A SINGLE DOSE 1 HOUR BEFORE DENTAL APPOINTMENT Fluorouracil 5 % cream APPLY THIN LAYER TO AFFECTED AREAS TWICE A DAY FOR 2 WEEKS. WASH HANDS IMMEDIATELY AFTER EACH APPLICATION rosuvastatin (CRESTOR) 10 mg tablet Take 10 mg by mouth once daily. Vardenafil HCl 20 mg tablet TAKE 1 TABLET BY MOUTH DAILY NEEDED PRIOR TO SEX ramipril (ALTACE) 10 mg capsule Take 10 mg by mouth once daily. tamsulosin ER (FLOMAX) 0.4 mg cap Take 0.4 mg by mouth once daily. 3 or 4 time a week metoprolol succinate ER (TOPROL XL) 100 mg Take 100 mg by mouth once daily. FAMILY HISTORY Problem Relation Age of Onset Ischemic Heart Disease Father Ischemic Heart Disease Mother Ischemic Heart Disease Sister 71 Diabetes Brother Stroke Brother Social History Tobacco Use Smoking status: Every Day Types: Pipe Passive exposure: Past Smokeless tobacco: Never Tobacco comments: pipe for 50 years /quit 5-2017 started again with pipe Vaping Use Vaping status: Never Used Substance Use Topics Alcohol use: Not Currently Drug use: Never BP 104/64 Pulse 65 Temp 36.8 ?C (98.2 ?F) Resp 20 Wt 79.1 kg (174 lb 6.1 oz) SpO2 98% BMI 25.02 kg/m? Review of Systems Constitutional: Negative for chills, fever and malaise/fatigue. HENT: Negative for congestion, ear discharge, ear pain, sinus pain and sore throat. Eyes: Negative for blurred vision, pain, discharge and redness. Respiratory: Negative for cough, hemoptysis, sputum production, shortness of breath, wheezing and stridor. Cardiovascular: Negative for chest pain. Gastrointestinal: Negative for abdominal pain, diarrhea, nausea and vomiting. Musculoskeletal: Negative for myalgias. Skin: Negative for itching and rash. Surgical wound scalp Neurological: Negative for dizziness and headaches. Objective Physical Exam Constitutional: General: He is not in acute distress. Appearance: He is not toxic-appearing. HENT: Head: Normocephalic. Comments: Surgical wound ariadne noted highlighted area. Approximately a 1 cm erythematous slightly inverted area noted with a small amount of yellow sanguinous drainage noted.. (more content not included)... Normal [facility] [id number] 08-19-2024 [id number] [facility] CNTHERAPYon 08-19-2024 CNTHERAPY Normal [facility] CNPNon 08-18-2024 CNPN Normal [facility] CNPNon 08-17-2024 CNPN Normal [facility] CASE MANAGEMon 08-13-2024 CASE MANAGEM Normal [facility] CNDSon 08-13-2024 CNDS [facility] NURSING PROGon 08-13-2024 NURSING PROG Normal [facility] Basic metabolic 2000 panelon 08-12-2024 Anion gap [Moles/Vol] 8 mmol/L Normal 8-15 [facility] Comment on above: Order Comment: Speci men Type: BLOOD SPECIMENOrdering Facility: [facility] Address: [address] [place] [address] Performed By: #### 2 0721-2, 2776-03, ####[facility] LABORATORYCLIA [id number] [place] [address] [place] Calcium [Mass/Vol] 8.6 mg/dL Normal 8.5-10.2 [facility] Comment on above: Order Comment: Speci men Type: BLOOD SPECIMENOrdering Facility: [facility] Address: [address] [place] [address] Performed By: #### 2 4321-2, 2776-03, ####[facility]ORATORYCLIA [id number] [place] [address] [place] Chloride [Moles/Vol] 104 mmol/L Normal 98-107 [facility] Comment on above: Order Comment: Speci men Type: BLOOD SPECIMENOrdering Facility: [facility] Address: [address] [place] [address] Performed By: #### 2 432-2, 2776-03, ####[facility] LABORATORYCLIA [id number] [place] [address] [place] CO2 [Moles/Vol] 25 mmol/L Normal 22-30 [facility] Comment on above: Order Comment: Speci men Type: BLOOD SPECIMENOrdering Facility: [facility] Address: [address] [place] [address] Performed By: #### 2 4321-2, 2776-03, ####[facility]ORATORYCLIA [id number] [place] [address] [place] Creatinine [Mass/Vol] 1.09 mg/dL Normal 0.73-1.22 [facility] Comment on above: Order Comment: Speci men Type: BLOOD SPECIMENOrdering Facility: [facility] Address: [address] [place] [address] Performed By: #### 2 4321-2, 2776-03, ####[facility]ORATORYCLIA [id number] [place] [address] [place] Creatinine and Glomerular filtration rate.predicted panel (S/P/Bld) 67 mL/min/1.73m??? Normal >=60 [facility] Comment on above: Order Comment: Karyn walker Type: BLOOD SPECIMENOrdering Facility: [facility] Address: [address] [place] [address] Result Comment: Nohemi mated Glomerular Filtration Rate (eGFR) is calculated using the 2020 CKD-EPI creatinine equation. This equation utilizes serum creatinine, sex, and age as parameters. The creatinine assay has traceable calibration to isotope dilution-mass spectrometry. Refer to KDIGO guidelines for clinical interpretation. In patients with unstable renal function, e.g. those with acute kidney injury, the eGFR may not accurately reflect actual GFR. Performed By: #### 2 4321-2, 2777-1, 83575-1 ####[facility]ITAL[facility]IA [id number] [place] [address] [place] Glucose [Mass/Vol] 104 mg/dL High 74-99 [facility] Comment on above: Order Comment: Karyn walker Type: BLOOD SPECIMENOrdering Facility: [facility] Address: [address] [place] [address] Result Comment: The [place] Diabetes Association (ADA) provides guidance for cutoff values for fasting glucose and random glucose. The ADA defines fasting as no caloric intake for at least 8 hours. Fasting plasma glucose results between 100 to 125 mg/dL indicate increased risk for diabetes (prediabetes).Fasting plasma glucose results greater than or equal to 126 mg/dL meet the criteria for diagnosis of diabetes. In the absence of unequivocal hyperglycemia, results should be confirmed by repeat testing. In a patient with classic symptoms of hyperglycemia or hyperglycemic crisis, random plasma glucose results greater than or equal to 200 mg/dL meet the criteria for diagnosis of diabetes.Reference: Standards of Medical Care in Diabetes 2016, [employer] Diabetes Association. Diabetes Care. 2016.39(Suppl 1). Performed By: #### 2 4321-2, 2777-, 64290-7 ####[facility]ITAL[facility]IA [id number] [place] [id number] [place] Potassium [Moles/Vol] 4.1 mmol/L Normal 3.7-5.1 [facility] Comment on above: Order Comment: Speci men Type: BLOOD SPECIMENOrdering Facility: [facility] Address: [address] [place] [address] Performed By: #### 2 4321-2, 2776-03, ####[facility]ORATORYCLIA [id number] [address] STATES OF [facility] Sodium [Moles/Vol] 137 mmol/L Normal 136-144 [facility] Comment on above: Order Comment: Speci men Type: BLOOD SPECIMENOrdering Facility: [facility] Address: [address] [place] [address] Performed By: #### 2 4321-2, 2776-03, ####[facility]ORYCLIA [id number] [address] [place] Urea nitrogen [Mass/Vol] 32 mg/dL High 9-24 [facility] Comment on above: Order Comment: Speci men Type: BLOOD SPECIMENOrdering Facility: [facility] Address: [address] [place] [address] Performed By: #### 2 4321-2, 2776-03, ####[facility]ORATORYCLIA [id number] [address] STATES [place] [facility] CASE MANAGEMon 08-12-2024 CASE MANAGEM Normal [facility] CBC panel Auto (Bld)on 08-12 Erythrocyte distribution width (RBC) [Ratio] 12.5 % Normal 11.5-15.0 [facility] Comment on above: Order Comment: Speci men Type: BLOOD SPECIMENOrdering Facility: [facility] Address: [address] [place] [address] Performed By: #### 5 8410-2 ####[facility]ORATORYCLIA [id number] [address] [place] [facility] Hematocrit (Bld) [Volume fraction] 33.0 % Low 39.0-51.0 [facility] Comment on above: Order Comment: Speci men Type: BLOOD SPECIMENOrdering Facility: [facility] Address: [address] [place] [address] Performed By: #### 5 8410-2 ####[facility]ORATORYCLIA [id number] [address] [place] [facility] Hemoglobin (Bld) [Mass/Vol] 11.1 g/dL Low 13.0-17.0 [facility] Comment on above: Order Comment: Speci men Type: BLOOD SPECIMENOrdering Facility: [facility] Address: [address] [place] [address] Performed By: #### 5 8410-2 ####[facility]ORYCLIA [id number] [address] [place] MCH (RBC) [Entitic mass] 30.2 pg Normal 26.0-34.0 [facility] Comment on above: Order Comment: Speci men Type: BLOOD SPECIMENOrdering Facility: [facility] Address: [address] [place] [address] Performed By: #### 5 8410-2 ####[facility]ORYCLIA [id number] [address] MCHC (RBC) [Mass/Vol] 33.6 g/dL Normal 30.5-36.0 [facility] Comment on above: Order Comment: Speci men Type: BLOOD SPECIMENOrdering Facility: [facility] Address: [address] [place] [address] Performed By: #### 5 8410-2 ####[facility]ORYCLIA [id number] [address] [place] MCV (RBC) [Entitic vol] 89.9 fL Normal 80.0-100.0 [facility] Comment on above: Order Comment: Speci men Type: BLOOD SPECIMENOrdering Facility: [facility] Address: [address] [place] [address] Performed By: #### 5 8410-2 ####[facility]ORATORYCLIA [id number] [address] [place] [facility] Nucleated RBC (Bld) [#/Vol] 10*3/uL Normal <0.01 [facility] Comment on above: Order Comment: Speci men Type: BLOOD SPECIMENOrdering Facility: [facility] Address: [address] [place] [address] Performed By: #### 5 8410-2 ####[facility]ATORYCLIA [id number] [address] [place] Platelet mean volume (Bld) [Entitic vol] 10.1 fL Normal 9.0-12.7 [facility] Comment on above: Order Comment: Speci men Type: BLOOD SPECIMENOrdering Facility: [facility] Address: [address] [place] [address] Performed By: #### 5 8410-2 ####[facility]ORYCLIA [id number] [address] [place] Platelets (Bld) [#/Vol] 161 10*3/uL Normal 150-400 [facility] Comment on above: Order Comment: Speci men Type: BLOOD SPECIMENOrdering Facility: [facility] Address: [address] [place] [address] Performed By: #### 5 8410-2 ####[facility]ORATORYCLIA [id number] [place] [address] [place] RBC (Bld) [#/Vol] 3.67 10*6/uL Low 4.20-6.00 [facility] Comment on above: Order Comment: Speci men Type: BLOOD SPECIMENOrdering Facility: [facility] Address: [address] [place] [address] Performed By: #### 5 8410-2 ####[facility]ATORYCLIA [id number] [place] [address] [place] WBC (Bld) [#/Vol] 10.77 10*3/uL Normal 3.70-11.00 [facility] Comment on above: Order Comment: Speci men Type: BLOOD SPECIMENOrdering Facility: [facility] Address: [address] [place] [address] Performed By: #### 5 8410-2 ####[facility]ATORYCLIA [id number] [place] [address] [place] Calcium.ionized [Moles/Vol]o n 08-12-2024 Calcium.ionized (BldV) [Mass/Vol] 1.17 mmol/L Normal 1.08-1.30 [facility] Comment on above: Order Comment: Speci men Type: BLOOD SPECIMENOrdering Facility: [facility] Address: [address] [place] [address] Performed By: #### 1 995-0 ####[facility]ATORYCLIA [id number] [place] [address] [place] Calcium.ionized adjusted to pH 7.4 (Bld) [Moles/Vol] 1.16 mmol/L Normal 1.08-1.30 [facility] Comment on above: Order Comment: Speci men Type: BLOOD SPECIMENOrdering Facility: [facility] Address: [address] [place] [address] Performed By: #### 1 995-0 ####[facility]ATORYCLIA [id number] [place] [address] [place] Magnesium SerPl-mCncon 08-12 Magnesium [Mass/Vol] 2.1 mg/dL Normal 1.7-2.3 [facility] Comment on above: Order Comment: Speci men Type: BLOOD SPECIMENOrdering Facility: [facility] Address: [address] [place] [address] Performed By: #### 2 4321-2, 2777-, 14846-5 ####[facility]ATORYCLIA [id number] [place] [address] [place] Phosphate SerPl-mCncon 08-12 Phosphate [Mass/Vol] 3.3 mg/dL Normal 2.7-4.8 [facility] Comment on above: Order Comment: Speci men Type: BLOOD SPECIMENOrdering Facility: [facility] Address: [address] [place] [address] Performed By: #### 2 4321-2, 2777-1, 49529-7 ####[facility]ORYCLIA [id number] [place] [address] [place] ALLIED HEALTHon 08-11-2024 ALLIED HEALTH Normal [facility] Basic metabolic 2000 panelon 08-11-2024 Anion gap [Moles/Vol] 9 mmol/L Normal 8-15 [facility] Comment on above: Order Comment: Speci men Type: BLOOD SPECIMENOrdering Facility: [facility] Address: [address] [place] [address] Performed By: #### 2 4321-2, , 2776-03 ####[facility]ORYCLIA [id number] [place] [id number] [place] Calcium [Mass/Vol] 8.7 mg/dL Normal 8.5-10.2 [facility] Comment on above: Order Comment: Speci men Type: BLOOD SPECIMENOrdering Facility: [facility] Address: [address] [place] [address] Performed By: #### 2 4321-2, , 2776-03 ####[facility]ATORYCLIA [id number] [place] [id number] [place] Chloride [Moles/Vol] 105 mmol/L Normal 98-107 [facility] Comment on above: Order Comment: Speci men Type: BLOOD SPECIMENOrdering Facility: [facility] Address: [address] [place] [address] Performed By: #### 2 4321-2, , 2776-03 ####[facility]ORYCLIA [id number] [place] [address] [place] CO2 [Moles/Vol] 23 mmol/L Normal 22-30 [facility] Comment on above: Order Comment: Speci men Type: BLOOD SPECIMENOrdering Facility: [facility] Address: [address] [place] [address] Performed By: #### 2 4321-2, , 2776- ####[facility]ATORYCLIA [id number] [place] [id number] [place] Creatinine [Mass/Vol] 1.31 mg/dL High 0.73-1.22 [facility] Comment on above: Order Comment: Karyn walker Type: BLOOD SPECIMENOrdering Facility: [facility] Address: [address] [place] [address] Performed By: #### 2 4321-2, 16337-7, 2776-03 ####[facility]ORYCLIA [id number] [address] [place] Creatinine and Glomerular filtration rate.predicted panel (S/P/Bld) 54 mL/min/1.73m??? Low >=60 [facility] Comment on above: Order Comment: Karyn walker Type: BLOOD SPECIMENOrdering Facility: [facility] Address: [address] [place] [address] Result Comment: Nohemi mated Glomerular Filtration Rate (eGFR) is calculated using the 2020 CKD-EPI creatinine equation. This equation utilizes serum creatinine, sex, and age as parameters. The creatinine assay has traceable calibration to isotope dilution-mass spectrometry. Refer to KDIGO guidelines for clinical interpretation. In patients with unstable renal function, e.g. those with acute kidney injury, the eGFR may not accurately reflect actual GFR. Performed By: #### 2 4321-2, , 2776-03 ####[facility]ORYCLIA [id number] [place] [id number] [place] Glucose [Mass/Vol] 180 mg/dL High 74-99 [facility] Comment on above: Order Comment: Karyn walker Type: BLOOD SPECIMENOrdering Facility: [facility] Address: [address] [place] [address] Result Comment: The [place] Diabetes Association (ADA) provides guidance for cutoff values for fasting glucose and random glucose. The ADA defines fasting as no caloric intake for at least 8 hours. Fasting plasma glucose results between 100 to 125 mg/dL indicate increased risk for diabetes (prediabetes).Fasting plasma glucose results greater than or equal to 126 mg/dL meet the criteria for diagnosis of diabetes. In the absence of unequivocal hyperglycemia, results should be confirmed by repeat testing. In a patient with classic symptoms of hyperglycemia or hyperglycemic crisis, random plasma glucose results greater than or equal to 200 mg/dL meet the criteria for diagnosis of diabetes.Reference: Standards of Medical Care in Diabetes 2016, [place] Diabetes Association. Diabetes Care. 2016.39(Suppl 1). Performed By: #### 2 4321-2, , 2776-03 ####[facility]ORATORYCLIA [id number] [place] [address] [place] Potassium [Moles/Vol] 4.6 mmol/L Normal 3.7-5.1 [facility] Comment on above: Order Comment: Speci men Type: BLOOD SPECIMENOrdering Facility: [facility] Address: [address] [place] [address] Performed By: #### 2 4321-2, , 2776-03 ####[facility]ORYCLIA [id number] [address] [place] Sodium [Moles/Vol] 137 mmol/L Normal 136-144 [facility] Comment on above: Order Comment: Speci men Type: BLOOD SPECIMENOrdering Facility: [facility] Address: [address] [place] [address] Performed By: #### 2 4321-2, , 2776-03 ####[facility]ORYCLIA [id number] [address] [place] Urea nitrogen [Mass/Vol] 39 mg/dL High 9-24 [facility] Comment on above: Order Comment: Speci men Type: BLOOD SPECIMENOrdering Facility: [facility] Address: [address] [place] [address] Performed By: #### 2 4321-2, , 2776-03 ####[facility]ORYCLIA [id number] [place] [address] [place] CASE MGT INIT ASSESon 2024 CASE MGT INIT ASSES Normal [facility] CBC panel Auto (Bld)on 08-11 Erythrocyte distribution width (RBC) [Ratio] 12.3 % Normal 11.5-15.0 [facility] Comment on above: Order Comment: Speci men Type: BLOOD SPECIMENOrdering Facility: [facility] Address: [address] [place] [address] Performed By: #### 5 8410-2 ####[facility]ORYCLIA [id number] [address] Hematocrit (Bld) [Volume fraction] 33.7 % Low 39.0-51.0 [facility] Comment on above: Order Comment: Speci men Type: BLOOD SPECIMENOrdering Facility: [facility] Address: [address] [place] [address] Performed By: #### 5 8410-2 ####[facility]ORYCLIA [id number] [address] OF [facility] Hemoglobin (Bld) [Mass/Vol] 11.4 g/dL Low 13.0-17.0 [facility] Comment on above: Order Comment: Speci men Type: BLOOD SPECIMENOrdering Facility: [facility] Address: [address] [place] [address] Performed By: #### 5 8410-2 ####[facility]ORYCLIA [id number] [address] MCH (RBC) [Entitic mass] 30.3 pg Normal 26.0-34.0 [facility] Comment on above: Order Comment: Speci men Type: BLOOD SPECIMENOrdering Facility: [facility] Address: [address] [place] [address] Performed By: #### 5 8410-2 ####[facility]ORYCLIA [id number] [address] [place] MCHC (RBC) [Mass/Vol] 33.8 g/dL Normal 30.5-36.0 [facility] Comment on above: Order Comment: Speci men Type: BLOOD SPECIMENOrdering Facility: [facility] Address: [address] [place] [address] Performed By: #### 5 8410-2 ####[facility]ORYCLIA [id number] [address] MCV (RBC) [Entitic vol] 89.6 fL Normal 80.0-100.0 [facility] Comment on above: Order Comment: Speci men Type: BLOOD SPECIMENOrdering Facility: [facility] Address: [address] [place] [address] Performed By: #### 5 8410-2 ####[facility]ORYCLIA [id number] [address] [place] Nucleated RBC (Bld) [#/Vol] 10*3/uL Normal <0.01 [facility] Comment on above: Order Comment: Speci men Type: BLOOD SPECIMENOrdering Facility: [facility] Address: [address] [place] [address] Performed By: #### 5 8410-2 ####[facility] LABORATORYCLIA [id number] [address] [place] Platelet mean volume (Bld) [Entitic vol] 9.8 fL Normal 9.0-12.7 [facility] Comment on above: Order Comment: Speci men Type: BLOOD SPECIMENOrdering Facility: [facility] Address: [address] [place] [address] Performed By: #### 5 8410-2 ####[facility] LABORATORYCLIA [id number] [address] [place] Platelets (Bld) [#/Vol] 163 10*3/uL Normal 150-400 [facility] Comment on above: Order Comment: Speci men Type: BLOOD SPECIMENOrdering Facility: [facility] Address: [address] [place] [address] Performed By: #### 5 8410-2 ####[facility] LABORATORYCLIA [id number] [address] [place] RBC (Bld) [#/Vol] 3.76 10*6/uL Low 4.20-6.00 [facility] Comment on above: Order Comment: Speci men Type: BLOOD SPECIMENOrdering Facility: [facility] Address: [address] [place] [address] Performed By: #### 5 8410-2 ####[facility] LABORATORYCLIA [id number] [place], [place] [id number] [place] [address] [place] [facility] WBC (Bld) [#/Vol] 13.08 10*3/uL High 3.70-11.00 [facility] Comment on above: Order Comment: Speci men Type: BLOOD SPECIMENOrdering Facility: [facility] Address: [address] [place] [address] Performed By: #### 5 8410-2 ####[facility] LABORATORYCLIA [id number] [address] [place] BRAIN WO IVCONon 08-12-19 CT BRAIN WO IVCON Normal [facility] Magnesium SerPl-mCncon 08-11 Magnesium [Mass/Vol] 2.3 mg/dL Normal 1.7-2.3 [facility] Comment on above: Order Comment: Speci men Type: BLOOD SPECIMENOrdering Facility: [facility] Address: [address] [place] [address] Performed By: #### 2 4321-2, 32874-3, 2777-1 ####[facility] LABORATORYCLIA [id number] [address] Phosphate SerPl-mCncon 08-11 Phosphate [Mass/Vol] 2.6 mg/dL Low 2.7-4.8 [facility] Comment on above: Order Comment: Speci men Type: BLOOD SPECIMENOrdering Facility: [facility] Address: [address] [place], [place] [address] Performed By: #### 2 4321-2, 70900-2, 2777-1 ####[facility] LABORATORYCLIA [id number] [address] THERAPY NTon 08-11-2024 THERAPY NT Normal [facility] THERAPY NT Normal [facility] ANES POSTPROC EVALon 025 ANES POSTPROC EVAL Normal [facility] ANES PRE-OPon 08-10-2024 ANES PRE-OP Normal [facility] Basic metabolic 2000 panelon 08-10-2024 Anion gap [Moles/Vol] 9 mmol/L Normal 8-15 [facility] Comment on above: Order Comment: Speci men Type: BLOOD SPECIMENOrdering Facility: [facility] Address: [address] [place] [address] Performed By: #### 2 4321-2 ####[facility] LABORATORYCLIA [id number] [place] [address] [place] Calcium [Mass/Vol] 8.6 mg/dL Normal 8.5-10.2 [facility] Comment on above: Order Comment: Speci men Type: BLOOD SPECIMENOrdering Facility: [facility] Address: [address] [place] [address] Performed By: #### 2 4321-2 ####[facility] LABORATORYCLIA [id number] [place] [address] [place] Chloride [Moles/Vol] 106 mmol/L Normal 98-107 [facility] Comment on above: Order Comment: Speci men Type: BLOOD SPECIMENOrdering Facility: [facility] Address: [address] [place] [address] Performed By: #### 2 4321-2 ####[facility] LABORATORYCLIA [id number] [place] [address] [place] CO2 [Moles/Vol] 24 mmol/L Normal 22-30 [facility] Comment on above: Order Comment: Speci men Type: BLOOD SPECIMENOrdering Facility: [facility] Address: [address] [place] [address] Performed By: #### 2 4321-2 ####[facility] LABORATORYCLIA [id number] [place] [address] [place] Creatinine [Mass/Vol] 1.14 mg/dL Normal 0.73-1.22 [facility] Comment on above: Order Comment: Speci men Type: BLOOD SPECIMENOrdering Facility: [facility] Address: [address] [place] [address] Performed By: #### 2 4321-2 ####[facility] LABORATORYCLIA [id number] [place] [address] [place] Creatinine and Glomerular filtration rate.predicted panel (S/P/Bld) 64 mL/min/1.73m??? Normal >=60 [facility] Comment on above: Order Comment: Karyn denise Type: BLOOD SPECIMENOrdering Facility: [facility] Address: [address] [place] [address] Result Comment: Nohemi mated Glomerular Filtration Rate (eGFR) is calculated using the 2020 CKD-EPI creatinine equation. This equation utilizes serum creatinine, sex, and age as parameters. The creatinine assay has traceable calibration to isotope dilution-mass spectrometry. Refer to KDIGO guidelines for clinical interpretation. In patients with unstable renal function, e.g. those with acute kidney injury, the eGFR may not accurately reflect actual GFR. Performed By: #### 2 4321-2 ####[facility] LABORATORYCLIA [id number] [place] [address] [place] Glucose [Mass/Vol] 113 mg/dL High 74-99 [facility] Comment on above: Order Comment: Karyn walker Type: BLOOD SPECIMENOrdering Facility: [facility] Address: [address] [place] [address] Result Comment: The [place] Diabetes Association (ADA) provides guidance for cutoff values for fasting glucose and random glucose. The ADA defines fasting as no caloric intake for at least 8 hours. Fasting plasma glucose results between 100 to 125 mg/dL indicate increased risk for diabetes (prediabetes).Fasting plasma glucose results greater than or equal to 126 mg/dL meet the criteria for diagnosis of diabetes. In the absence of unequivocal hyperglycemia, results should be confirmed by repeat testing. In a patient with classic symptoms of hyperglycemia or hyperglycemic crisis, random plasma glucose results greater than or equal to 200 mg/dL meet the criteria for diagnosis of diabetes.Reference: Standards of Medical Care in Diabetes 2016, [place] Diabetes Association. Diabetes Care. 2016.39(Suppl 1). Performed By: #### 2 4321-2 ####[facility] LABORATORYCLIA [id number] [place] [id number] [place] Potassium [Moles/Vol] 4.5 mmol/L Normal 3.7-5.1 [facility] Comment on above: Order Comment: Speci men Type: BLOOD SPECIMENOrdering Facility: [facility] Address: [address] [place] [address] Performed By: #### 2 4321-2 ####[facility]ORATORYCLIA [id number] [place] [address] [place] Sodium [Moles/Vol] 139 mmol/L Normal 136-144 [facility] Comment on above: Order Comment: Speci men Type: BLOOD SPECIMENOrdering Facility: [facility] Address: [address] [place] [address] Performed By: #### 2 4321-2 ####[facility] LABORATORYCLIA [id number] [place] [address] [place] Urea nitrogen [Mass/Vol] 27 mg/dL High 9-24 [facility] Comment on above: Order Comment: Speci men Type: BLOOD SPECIMENOrdering Facility: [facility] Address: [address] [place] [address] Performed By: #### 2 4321-2 ####[facility]ORATORYCLIA [id number] [place] [address] [place] Anion gap [Moles/Vol] 9 mmol/L Normal 8-15 [facility] Comment on above: Order Comment: Speci men Type: BLOOD SPECIMENOrdering Facility: [facility] Address: [address] [place] [address] Performed By: #### 2 4321-2, 2776-03, ####[facility]ORATORYCLIA [id number] [place] [address] [place] Calcium [Mass/Vol] 9.0 mg/dL Normal 8.5-10.2 [facility] Comment on above: Order Comment: Speci men Type: BLOOD SPECIMENOrdering Facility: [facility] Address: [address] [place] [address] Performed By: #### 2 4321-2, 2776-03, ####[facility]ORATORYCLIA [id number] [place] [address] [place] Chloride [Moles/Vol] 104 mmol/L Normal 98-107 [facility] Comment on above: Order Comment: Speci men Type: BLOOD SPECIMENOrdering Facility: [facility] Address: [address] [place] [address] Performed By: #### 2 4321-2, 2777-1, ####[facility]ORATORYCLIA [id number] [place] [id number] [place] CO2 [Moles/Vol] 25 mmol/L Normal 22-30 [facility] Comment on above: Order Comment: Speci men Type: BLOOD SPECIMENOrdering Facility: [facility] Address: [address] [place] [address] Performed By: #### 2 4321-2, 2777-1, ####[facility]ORATORYCLIA [id number] [address] STATES [place] [facility] Creatinine [Mass/Vol] 1.26 mg/dL High 0.73-1.22 [facility] Comment on above: Order Comment: Speci men Type: BLOOD SPECIMENOrdering Facility: [facility] Address: [address] [place] [address] Performed By: #### 2 4321-2, 2777-1, ####[facility] LABORATORYCLIA [id number] [address] Creatinine and Glomerular filtration rate.predicted panel (S/P/Bld) 57 mL/min/1.73m??? Low >=60 [facility] Comment on above: Order Comment: Speci men Type: BLOOD SPECIMENOrdering Facility: [facility] Address: [address] [place] [address] Result Comment: Nohemi mated Glomerular Filtration Rate (eGFR) is calculated using the 2020 CKD-EPI creatinine equation. This equation utilizes serum creatinine, sex, and age as parameters. The creatinine assay has traceable calibration to isotope dilution-mass spectrometry. Refer to KDIGO guidelines for clinical interpretation. In patients with unstable renal function, e.g. those with acute kidney injury, the eGFR may not accurately reflect actual GFR. Performed By: #### 2 4321-2, 2776-03, ####[facility]ORATORYCLIA [id number] [place] [address] [place] Glucose [Mass/Vol] 112 mg/dL High 74-99 [facility] Comment on above: Order Comment: Karyn walker Type: BLOOD SPECIMENOrdering Facility: [facility] Address: [address] [place], [place] [address] Result Comment: The [place] Diabetes Association (ADA) provides guidance for cutoff values for fasting glucose and random glucose. The ADA defines fasting as no caloric intake for at least 8 hours. Fasting plasma glucose results between 100 to 125 mg/dL indicate increased risk for diabetes (prediabetes).Fasting plasma glucose results greater than or equal to 126 mg/dL meet the criteria for diagnosis of diabetes. In the absence of unequivocal hyperglycemia, results should be confirmed by repeat testing. In a patient with classic symptoms of hyperglycemia or hyperglycemic crisis, random plasma glucose results greater than or equal to 200 mg/dL meet the criteria for diagnosis of diabetes.Reference: Standards of Medical Care in Diabetes 2016, [place] Diabetes Association. Diabetes Care. 2016.39(Suppl 1). Performed By: #### 2 4321-2, 2776-03, ####[facility] LABORATORYCLIA [id number] [place] [address] [place] Potassium [Moles/Vol] 3.8 mmol/L Normal 3.7-5.1 [facility] Comment on above: Order Comment: Karyn walker Type: BLOOD SPECIMENOrdering Facility: [facility] Address: [address] [place] [address] Performed By: #### 2 4321-2, 2776-03, ####[facility]ORATORYCLIA [id number] [place] [address] [place] Sodium [Moles/Vol] 138 mmol/L Normal 136-144 [facility] Comment on above: Order Comment: Karyn walker Type: BLOOD SPECIMENOrdering Facility: [facility] Address: [address] [place] [address] Performed By: #### 2 4321-2, 2777-1, 52330-2 ####[facility] LABORATORYCLIA [id number] [place] [address] [place] Urea nitrogen [Mass/Vol] 28 mg/dL High 9-24 [facility] Comment on above: Order Comment: Speci men Type: BLOOD SPECIMENOrdering Facility: [facility] Address: [address] [place] [address] Performed By: #### 2 4321-2, 277-, ####[facility]ORATORYCLIA [id number] [address] STATES [place] [facility] CBC W Auto Differential pane l (Bld)on 08-10-2024 Basophils (Bld) [#/Vol] 0.04 10*3/uL Normal <0.11 [facility] Comment on above: Order Comment: Speci men Type: BLOOD SPECIMENOrdering Facility: [facility] Address: [address] [place] [address] Performed By: #### 5 7021-8 ####[facility]ORATORYCLIA [id number] [address] [place] Basophils/100 WBC (Bld) 0.5 % Normal [facility] Comment on above: Order Comment: Speci men Type: BLOOD SPECIMENOrdering Facility: [facility] Address: [address] [place] [address] Performed By: #### 5 7021-8 ####[facility]ORATORYCLIA [id number] [address] STATES [facility] Differential cell count method Nom (Bld) Auto Normal [facility] Comment on above: Order Comment: Speci men Type: BLOOD SPECIMENOrdering Facility: [facility] Address: [address] [place] [address] Performed By: #### 5 7021-8 ####[facility]ORATORYCLIA [id number] [place] [address] [place] Eosinophils (Bld) [#/Vol] 0.08 10*3/uL Normal <0.46 [facility] Comment on above: Order Comment: Speci men Type: BLOOD SPECIMENOrdering Facility: [facility] Address: [address] [place] [address] Performed By: #### 5 7021-8 ####[facility]ORATORYCLIA [id number] [address] STATES [place] [facility] Eosinophils/100 WBC (Bld) 1.1 % Normal [facility] Comment on above: Order Comment: Speci men Type: BLOOD SPECIMENOrdering Facility: [facility] Address: [address] [place] [address] Performed By: #### 5 7021-8 ####[facility] LABORATORYCLIA [id number] [address] [place] Erythrocyte distribution width (RBC) [Ratio] 12.3 % Normal 11.5-15.0 [facility] Comment on above: Order Comment: Speci men Type: BLOOD SPECIMENOrdering Facility: [facility] Address: [address] [place] [address] Performed By: #### 5 7021-8 ####[facility]ORATORYCLIA [id number] [address] [place] Hematocrit (Bld) [Volume fraction] 35.8 % Low 39.0-51.0 [facility] Comment on above: Order Comment: Speci men Type: BLOOD SPECIMENOrdering Facility: [facility] Address: [address] [place] [address] Performed By: #### 5 7021-8 ####[facility]ORATORYCLIA [id number] [address] [place] Hemoglobin (Bld) [Mass/Vol] 11.5 g/dL Low 13.0-17.0 [facility] Comment on above: Order Comment: Speci men Type: BLOOD SPECIMENOrdering Facility: [facility] Address: [address] [place] [address] Performed By: #### 5 7021-8 ####[facility]ORATORYCLIA [id number] [address] Immature granulocytes (Bld) [#/Vol] 0.05 10*3/uL Normal <0.10 [facility] Comment on above: Order Comment: Speci men Type: BLOOD SPECIMENOrdering Facility: [facility] Address: [address] [place] [address] Performed By: #### 5 7021-8 ####[facility]ORATORYCLIA [id number] [address] Immature granulocytes/100 WBC (Bld) 0.7 % Normal [facility] Comment on above: Order Comment: Speci men Type: BLOOD SPECIMENOrdering Facility: [facility] Address: [address] [place] [address] Performed By: #### 5 7021-8 ####[facility]ORATORYCLIA [id number] [address] Lymphocytes (Bld) [#/Vol] 0.76 10*3/uL Low 1.00-4.00 [facility] Comment on above: Order Comment: Speci men Type: BLOOD SPECIMENOrdering Facility: [facility] Address: [address] [place] [address] Performed By: #### 5 7021-8 ####[facility]ORATORYCLIA [id number] [address] Lymphocytes/100 WBC (Bld) 10.0 % Normal [facility] Comment on above: Order Comment: Speci men Type: BLOOD SPECIMENOrdering Facility: [facility] Address: [address] [place] [address] Performed By: #### 5 7021-8 ####[facility]ORATORYCLIA [id number] [address] STATES [facility] MCH (RBC) [Entitic mass] 29.9 pg Normal 26.0-34.0 [facility] Comment on above: Order Comment: Speci men Type: BLOOD SPECIMENOrdering Facility: [facility] Address: [address] [place] [address] Performed By: #### 5 7021-8 ####[facility]ORATORYCLIA [id number] [address] STATES [place] [facility] MCHC (RBC) [Mass/Vol] 32.1 g/dL Normal 30.5-36.0 [facility] Comment on above: Order Comment: Speci men Type: BLOOD SPECIMENOrdering Facility: [facility] Address: [address] [place] [address] Performed By: #### 5 7021-8 ####[facility]ORATORYCLIA [id number] [address] [place] MCV (RBC) [Entitic vol] 93.0 fL Normal 80.0-100.0 [facility] Comment on above: Order Comment: Speci men Type: BLOOD SPECIMENOrdering Facility: [facility] Address: [address] [place] [address] Performed By: #### 5 7021-8 ####[facility]ORATORYCLIA [id number] [address] [place] Monocytes (Bld) [#/Vol] 0.10 10*3/uL Normal <0.87 [facility] Comment on above: Order Comment: Speci men Type: BLOOD SPECIMENOrdering Facility: [facility] Address: [address] [place] [address] Performed By: #### 5 7021-8 ####[facility]ORATORYCLIA [id number] [address] STATES [place] [facility] Monocytes/100 WBC (Bld) 1.3 % Normal [facility] Comment on above: Order Comment: Speci men Type: BLOOD SPECIMENOrdering Facility: [facility] Address: [address] [place] [address] Performed By: #### 5 7021-8 ####[facility]ORATORYCLIA [id number] [address] [place] Neutrophils (Bld) [#/Vol] 6.57 10*3/uL Normal 1.45-7.50 [facility] Comment on above: Order Comment: Speci men Type: BLOOD SPECIMENOrdering Facility: [facility] Address: [address] [place] [address] Performed By: #### 5 7021-8 ####[facility]ORATORYCLIA [id number] [address] Neutrophils/100 WBC (Bld) 86.4 % Normal [facility] Comment on above: Order Comment: Speci men Type: BLOOD SPECIMENOrdering Facility: [facility] Address: [address] [place] [address] Performed By: #### 5 7021-8 ####[facility]ORATORYCLIA [id number] [address] [place] Nucleated RBC (Bld) [#/Vol] 10*3/uL Normal <0.01 [facility] Comment on above: Order Comment: Speci men Type: BLOOD SPECIMENOrdering Facility: [facility] Address: [address] [place] [address] Performed By: #### 5 7021-8 ####[facility]ORATORYCLIA [id number] [address] [place] Nucleated RBC/100 WBC (Bld) [Ratio] 0.0 /100 WBC Normal [facility] Comment on above: Order Comment: Speci men Type: BLOOD SPECIMENOrdering Facility: [facility] Address: [address] [place] [address] Performed By: #### 5 7021-8 ####[facility]ORATORYCLIA [id number] [address] [place] Platelet mean volume (Bld) [Entitic vol] 9.7 fL Normal 9.0-12.7 [facility] Comment on above: Order Comment: Speci men Type: BLOOD SPECIMENOrdering Facility: [facility] Address: [address] [place] [address] Performed By: #### 5 7021-8 ####[facility]ATORYCLIA [id number] [address] [place] Platelets (Bld) [#/Vol] 141 10*3/uL Low 150-400 [facility] Comment on above: Order Comment: Speci men Type: BLOOD SPECIMENOrdering Facility: [facility] Address: [address] [place] [address] Performed By: #### 5 7021-8 ####[facility]ORATORYCLIA [id number] [address] [place] RBC (Bld) [#/Vol] 3.85 10*6/uL Low 4.20-6.00 [facility] Comment on above: Order Comment: Speci men Type: BLOOD SPECIMENOrdering Facility: [facility] Address: [address] [place] [address] Performed By: #### 5 7021-8 ####[facility]ORATORYCLIA [id number] [address] [place] [facility] WBC (Bld) [#/Vol] 7.60 10*3/uL Normal 3.70-11.00 [facility] Comment on above: Order Comment: Speci men Type: BLOOD SPECIMENOrdering Facility: [facility] Address: [address] [place] [address] Performed By: #### 5 7021-8 ####[facility]ORATORYCLIA [id number] [address] CBC panel Auto (Bld)on 08-10 Erythrocyte distribution width (RBC) [Ratio] 12.7 % Normal 11.5-15.0 [facility] Comment on above: Order Comment: Speci men Type: BLOOD SPECIMENOrdering Facility: [facility] Address: [address] [place] [address] Performed By: #### 5 8410-2 ####[facility]ORATORYCLIA [id number] [address] Hematocrit (Bld) [Volume fraction] 34.2 % Low 39.0-51.0 [facility] Comment on above: Order Comment: Speci men Type: BLOOD SPECIMENOrdering Facility: [facility] Address: [address] [place] [address] Performed By: #### 5 8410-2 ####[facility]ORATORYCLIA [id number] [address] Hemoglobin (Bld) [Mass/Vol] 11.2 g/dL Low 13.0-17.0 [facility] Comment on above: Order Comment: Speci men Type: BLOOD SPECIMENOrdering Facility: [facility] Address: [address] [place] [address] Performed By: #### 5 8410-2 ####[facility]ORATORYCLIA [id number] [address] STATES [place] [facility] MCH (RBC) [Entitic mass] 30.1 pg Normal 26.0-34.0 [facility] Comment on above: Order Comment: Speci men Type: BLOOD SPECIMENOrdering Facility: [facility] Address: [address] [place] [address] Performed By: #### 5 8410-2 ####[facility]ORATORYCLIA [id number] [address] MCHC (RBC) [Mass/Vol] 32.7 g/dL Normal 30.5-36.0 [facility] Comment on above: Order Comment: Speci men Type: BLOOD SPECIMENOrdering Facility: [facility] Address: [address] [place] [address] Performed By: #### 5 8410-2 ####[facility]ORATORYCLIA [id number] [address] STATES [facility] MCV (RBC) [Entitic vol] 91.9 fL Normal 80.0-100.0 [facility] Comment on above: Order Comment: Speci men Type: BLOOD SPECIMENOrdering Facility: [facility] Address: [address] [place] [address] Performed By: #### 5 8410-2 ####[facility]ORATORYCLIA [id number] [address] OF [facility] Nucleated RBC (Bld) [#/Vol] 10*3/uL Normal <0.01 [facility] Comment on above: Order Comment: Speci men Type: BLOOD SPECIMENOrdering Facility: [facility] Address: [address] [place] [address] Performed By: #### 5 8410-2 ####[facility] LABORATORYCLIA [id number] [place] [address] [place] Platelet mean volume (Bld) [Entitic vol] 9.8 fL Normal 9.0-12.7 [facility] Comment on above: Order Comment: Speci men Type: BLOOD SPECIMENOrdering Facility: [facility] Address: [address] [place] [address] Performed By: #### 5 8410-2 ####[facility] LABORATORYCLIA [id number] [place] [address] [place] Platelets (Bld) [#/Vol] 149 10*3/uL Low 150-400 [facility] Comment on above: Order Comment: Speci men Type: BLOOD SPECIMENOrdering Facility: [facility] Address: [address] [place] [address] Performed By: #### 5 8410-2 ####[facility] LABORATORYCLIA [id number] [place] [address] [place] RBC (Bld) [#/Vol] 3.72 10*6/uL Low 4.20-6.00 [facility] Comment on above: Order Comment: Speci men Type: BLOOD SPECIMENOrdering Facility: [facility] Address: [address] [place] [address] Performed By: #### 5 8410-2 ####[facility] LABORATORYCLIA [id number] [place] [address] [place] WBC (Bld) [#/Vol] 6.99 10*3/uL Normal 3.70-11.00 [facility] Comment on above: Order Comment: Speci men Type: BLOOD SPECIMENOrdering Facility: [facility] Address: [address] [place] [address] Performed By: #### 5 8410-2 ####[facility] LABORATORYCLIA [id number] [address] BRAIN WO IVCONon 08-11-19 CT BRAIN WO IVCON Normal [facility] Magnesium SerPl-mCncon 08-10 Magnesium [Mass/Vol] 2.2 mg/dL Normal 1.7-2.3 [facility] Comment on above: Order Comment: Speci men Type: BLOOD SPECIMENOrdering Facility: [facility] Address: [address] [place] [address] Performed By: #### 2 4321-2, 2777-1, 43487-7 ####[facility] LABORATORYCLIA [id number] [address] OPERATIVE NOon 08-10-2024 OPERATIVE NO Normal [facility] PT panel Coag (PPP)on 2024 INR Coag (PPP) [Relative time] 1.0 {INR} Normal 0.9-1.3 [facility] Comment on above: Order Comment: Speci men Type: BLOOD SPECIMENOrdering Facility: [facility] Address: [address] [place] [address] Result Comment: Mlila min K Antagonist (VKA) Therapeutic Range: INR 2 to 3 (Target INR of 2.5)Note: For patients treated with VKA drugs, such as warfarin, the [employer] 2012 Guideline recommends a therapeutic INR range of 2 to 3 (target INR of 2.5). This recommendation includes high-risk patients with antiphospholipid syndrome with previous arterial or venous thromboembolism, current-generation mechanical or bioprosthetic aortic heart valve replacement.Note: Patients with mechanical aortic valve replacement and additional risk factors for thromboembolic events (atrial fibrillation, previous thromboembolism, LV dysfunction, hypercoagulable conditions) or an older generation mechanical AVR (i.e., ball in-Cage) or any mechanical MVR should have a INR therapeutic range of 2.5 to 3.5 (target INR of 3).Marc PAK, et al. Chest 2012, 141:7S-47SCoty CORONADO, et al. [facility] 2017, 70: 252-289 Performed By: #### 3 4528-0, 44820-5 ####[facility]ITALCLIA [id number] [place] [address] [place] PT Coag (PPP) [Time] 11.3 s Normal 9.7-13.0 [facility] Comment on above: Order Comment: Speci men Type: BLOOD SPECIMENOrdering Facility: [facility] Address: [address] [place] [address] Performed By: #### 3 4528-0, 19144-1 ####[facility]ITALCLIA [id number] [place] [address] [place] Phosphate SerPl-mCncon 08-10 Phosphate [Mass/Vol] 3.5 mg/dL Normal 2.7-4.8 [facility] Comment on above: Order Comment: Speci men Type: BLOOD SPECIMENOrdering Facility: [facility] Address: [address] [place] [address] Performed By: #### 2 4321-2, 2777-1, 74024-6 ####[facility]PITALIA [id number] [address] STATES OF [facility] STAPHYLOCOCCUS AUREUS AND MR SA SCREEN, PCR, NASALon 08-10-2024 S. aureus and MRSA panel MATILDE+probe (Nose) Methicillin-SUSCEPTIBLE Staphylococcus aureus Detected Abnormal Not Detected [facility] Comment on above: Order Comment: Speci men Type: SWABOrdering Facility: [facility] Address: [address] [place] [address] Performed By: #### S APCR ####[facility]ITALCLIA [id number] [place] [address] [place] aPTT PPPon 08-10-2024 aPTT Coag (PPP) [Time] 28.5 s Normal 23.0-32.4 [facility] Comment on above: Order Comment: Speci men Type: BLOOD SPECIMENOrdering Facility: [facility] Address: [address] [place] [address] Performed By: #### 3 4528-0, 76715-3 ####[facility]ITALCLIA [id number] [address] [place] ALLIED HEALTHon 08-09-2024 ALLIED HEALTH Normal [facility] CBC W Auto Differential pane l (Bld)on 08-09-2024 Basophils (Bld) [#/Vol] 0.04 10*3/uL Normal <0.11 [facility] Comment on above: Order Comment: Speci men Type: BLOOD SPECIMENOrdering Facility: [facility] Address: [address] [place] [address] Performed By: #### 5 7021-8 ####[facility] [place] LABCLIA [id number] [place] [address] [place] Basophils/100 WBC (Bld) 0.5 % Normal [facility] Comment on above: Order Comment: Speci men Type: BLOOD SPECIMENOrdering Facility: [facility] Address: [address] [place] [address] Performed By: #### 5 7021-8 ####[facility] [place] LABCLIA [id number] [place] [address] [facility] Differential cell count method Nom (Bld) Auto Normal [facility] Comment on above: Order Comment: Speci men Type: BLOOD SPECIMENOrdering Facility: [facility] Address: [address] [place] [address] Performed By: #### 5 7021-8 ####[facility] [place] LABCLIA [id number] [place] [address] [place] Eosinophils (Bld) [#/Vol] 0.31 10*3/uL Normal <0.46 [facility] Comment on above: Order Comment: Speci men Type: BLOOD SPECIMENOrdering Facility: [facility] Address: [address] [place] [address] Performed By: #### 5 7021-8 ####[facility] [place] LABCLIA [id number] [place] [address] [place] Eosinophils/100 WBC (Bld) 3.7 % Normal [facility] Comment on above: Order Comment: Speci men Type: BLOOD SPECIMENOrdering Facility: [facility] Address: [address] [place] [address] Performed By: #### 5 7021-8 ####[facility] [place] LABCLIA [id number] [place] [address] [place] [facility] Erythrocyte distribution width (RBC) [Ratio] 12.6 % Normal 11.5-15.0 [facility] Comment on above: Order Comment: Speci men Type: BLOOD SPECIMENOrdering Facility: [facility] Address: [address] [place] [address] Performed By: #### 5 7021-8 ####[facility] LABCLIA [id number] [place] [address] [place] Hematocrit (Bld) [Volume fraction] 40.0 % Normal 39.0-51.0 [facility] Comment on above: Order Comment: Speci men Type: BLOOD SPECIMENOrdering Facility: [facility] Address: [address] [place] [address] Performed By: #### 5 7021-8 ####[facility] LABCLIA [id number] [place] [address] [place] Hemoglobin (Bld) [Mass/Vol] 13.1 g/dL Normal 13.0-17.0 [facility] Comment on above: Order Comment: Speci men Type: BLOOD SPECIMENOrdering Facility: [facility] Address: [address] [place] [address] Performed By: #### 5 7021-8 ####[facility] [place] LABCLIA [id number] [place] [address] [place] Immature granulocytes (Bld) [#/Vol] 0.03 10*3/uL Normal <0.10 [facility] Comment on above: Order Comment: Speci men Type: BLOOD SPECIMENOrdering Facility: [facility] Address: [address] [place] [address] Performed By: #### 5 7021-8 ####[facility] [place] LABCLIA [id number] [facility] [id number] [place] [address] Immature granulocytes/100 WBC (Bld) 0.4 % Normal [facility] Comment on above: Order Comment: Speci men Type: BLOOD SPECIMENOrdering Facility: [facility] Address: [address] [place] [address] Performed By: #### 5 7021-8 ####[facility] [place] LABCLIA [id number] [place] [address] [place] Lymphocytes (Bld) [#/Vol] 1.67 10*3/uL Normal 1.00-4.00 [facility] Comment on above: Order Comment: Speci men Type: BLOOD SPECIMENOrdering Facility: [facility] Address: [address] [place] [address] Performed By: #### 5 7021-8 ####[facility] [place] LABCLIA [id number] [address] Lymphocytes/100 WBC (Bld) 19.7 % Normal [facility] Comment on above: Order Comment: Speci men Type: BLOOD SPECIMENOrdering Facility: [facility] Address: [address] [place] [address] Performed By: #### 5 7021-8 ####[facility] [place] LABCLIA [id number] [address] [place] MCH (RBC) [Entitic mass] 29.9 pg Normal 26.0-34.0 [facility] Comment on above: Order Comment: Speci men Type: BLOOD SPECIMENOrdering Facility: [facility] Address: [address] [place] [address] Performed By: #### 5 7021-8 ####[facility] [place] LABCLIA [id number] [address] [place] MCHC (RBC) [Mass/Vol] 32.8 g/dL Normal 30.5-36.0 [facility] Comment on above: Order Comment: Speci men Type: BLOOD SPECIMENOrdering Facility: [facility] Address: [address] [place] [address] Performed By: #### 5 7021-8 ####[facility] [place] LABCLIA [id number] [facility] [address] [place] MCV (RBC) [Entitic vol] 91.3 fL Normal 80.0-100.0 [facility] Comment on above: Order Comment: Speci men Type: BLOOD SPECIMENOrdering Facility: [facility] Address: [address] [place] [address] Performed By: #### 5 7021-8 ####[facility] [place] LABCLIA [id number] [facility] [place] [address] [place] Monocytes (Bld) [#/Vol] 0.58 10*3/uL Normal <0.87 [facility] Comment on above: Order Comment: Speci men Type: BLOOD SPECIMENOrdering Facility: [facility] Address: [address] [place] [address] Performed By: #### 5 7021-8 ####[facility] [place] LABCLIA [id number] [place] [address] [place] Monocytes/100 WBC (Bld) 6.8 % Normal [facility] Comment on above: Order Comment: Speci men Type: BLOOD SPECIMENOrdering Facility: [facility] Address: [address] [place] [address] Performed By: #### 5 7021-8 ####[facility] [place] LABCLIA [id number] [place] [address] [place] Neutrophils (Bld) [#/Vol] 5.84 10*3/uL Normal 1.45-7.50 [facility] Comment on above: Order Comment: Speci men Type: BLOOD SPECIMENOrdering Facility: [facility] Address: [address] [place] [address] Performed By: #### 5 7021-8 ####[facility] [place] LABCLIA [id number] [facility] [place] [address] [place] Neutrophils/100 WBC (Bld) 68.9 % Normal [facility] Comment on above: Order Comment: Speci men Type: BLOOD SPECIMENOrdering Facility: [facility] Address: [address] [place] [address] Performed By: #### 5 7021-8 ####[facility] [place] LABCLIA [id number] [place] [address] [place] Nucleated RBC (Bld) [#/Vol] Normal [facility] Comment on above: Order Comment: Speci men Type: BLOOD SPECIMENOrdering Facility: [facility] Address: [address] [place] [address] Performed By: #### 5 7021-8 ####[facility] [place] LABCLIA [id number] [place] [address] [place] Nucleated RBC/100 WBC (Bld) [Ratio] Normal [facility] Comment on above: Order Comment: Speci men Type: BLOOD SPECIMENOrdering Facility: [facility] Address: [address] [place] [address] Performed By: #### 5 7021-8 ####[facility] [place] LABCLIA [id number] [place] [address] [place] Platelet mean volume (Bld) [Entitic vol] 9.5 fL Normal 9.0-12.7 [facility] Comment on above: Order Comment: Speci men Type: BLOOD SPECIMENOrdering Facility: [facility] Address: [address] [place] [address] Performed By: #### 5 7021-8 ####[facility] [place] LABCLIA [id number] [place] [address] [place] Platelets (Bld) [#/Vol] 191 10*3/uL Normal 150-400 [facility] Comment on above: Order Comment: Speci men Type: BLOOD SPECIMENOrdering Facility: [facility] Address: [address] [place] [address] Performed By: #### 5 7021-8 ####[facility] [place] LABCLIA [id number] [place] [address] [place] RBC (Bld) [#/Vol] 4.38 10*6/uL Normal 4.20-6.00 [facility] Comment on above: Order Comment: Speci men Type: BLOOD SPECIMENOrdering Facility: [facility] Address: [address] [place] [address] Performed By: #### 5 7021-8 ####[facility] [place] LABCLIA [id number] [place] [address] [place] WBC (Bld) [#/Vol] 8.47 10*3/uL Normal 3.70-11.00 [facility] Comment on above: Order Comment: Speci men Type: BLOOD SPECIMENOrdering Facility: [facility] Address: [address] [place] [address] Performed By: #### 5 7021-8 ####[facility] [place] LABCLIA [id number] [place] [address] [facility] BRAIN WO IVCONon 08-10-19 CT BRAIN WO IVCON Invalid Interpretation Code [facility] CT CERVICAL SPINE WO IVCONon 08-09-2024 CT CERVICAL SPINE WO IVCON Normal [facility] Comprehensive metabolic 2000 panelon 08-09-2024 Albumin [Mass/Vol] 4.1 g/dL Normal 3.9-4.9 [facility] Comment on above: Order Comment: Speci men Type: BLOOD SPECIMENOrdering Facility: [facility] Address: [address] [place] [address] Performed By: #### 2 4323-8, 37021-0 ####[facility] [place] LABCLIA [id number] [place] [address] [place] ALP [Catalytic activity/Vol] 47 U/L Normal 38-113 [facility] Comment on above: Order Comment: Speci men Type: BLOOD SPECIMENOrdering Facility: [facility] Address: [address] [place] [address] Performed By: #### 2 4323-8, 27964-9 ####[facility] [place] LABCLIA [id number] [place] [address] [place] ALT With P-5'-P [Catalytic activity/Vol] 8 U/L Low 10-54 [facility] Comment on above: Order Comment: Speci men Type: BLOOD SPECIMENOrdering Facility: [facility] Address: [address] [place], [place] [address] Performed By: #### 2 4323-8, ####[facility] [place] LABCLIA [id number] [place] [address] [place] Anion gap [Moles/Vol] 12 mmol/L Normal 8-15 [facility] Comment on above: Order Comment: Speci men Type: BLOOD SPECIMENOrdering Facility: [facility] Address: [address] [place] [address] Performed By: #### 2 4323-8, ####[facility] [place] LABCLIA [id number] [place] [address] [place] AST With P-5'-P [Catalytic activity/Vol] 14 U/L Normal 14-40 [facility] Comment on above: Order Comment: Speci men Type: BLOOD SPECIMENOrdering Facility: [facility] Address: [address] [place] [address] Performed By: #### 2 4323-8, ####[facility] [place] LABCLIA [id number] [place] [address] [place] Bilirubin [Mass/Vol] 0.4 mg/dL Normal 0.2-1.3 [facility] Comment on above: Order Comment: Speci men Type: BLOOD SPECIMENOrdering Facility: [facility] Address: [address] [place], [place] [address] Performed By: #### 2 4323-8, ####[facility] [place] LABCLIA [id number] [place] [address] [place] Calcium [Mass/Vol] 9.4 mg/dL Normal 8.5-10.2 [facility] Comment on above: Order Comment: Speci men Type: BLOOD SPECIMENOrdering Facility: [facility] Address: [address] [place] [address] Performed By: #### 2 4323-8, ####[facility] [place] LABCLIA [id number] [place] [address] [place] Chloride [Moles/Vol] 104 mmol/L Normal 98-107 [facility] Comment on above: Order Comment: Speci men Type: BLOOD SPECIMENOrdering Facility: [facility] Address: [address] [place] [address] Performed By: #### 2 4323-8, ####[facility] [place] LABCLIA [id number] [place] [address] [place] CO2 [Moles/Vol] 24 mmol/L Normal 22-30 [facility] Comment on above: Order Comment: Speci men Type: BLOOD SPECIMENOrdering Facility: [facility] Address: [address] [place] [address] Performed By: #### 2 4323-8, ####[facility] LABCLIA [id number] [place] [address] [place] Creatinine [Mass/Vol] 1.45 mg/dL High 0.73-1.22 [facility] Comment on above: Order Comment: Speci men Type: BLOOD SPECIMENOrdering Facility: [facility] Address: [address] [place] [address] Performed By: #### 2 4323-8, ####[facility] [place] LABCLIA [id number] [place] [address] [place] Creatinine and Glomerular filtration rate.predicted panel (S/P/Bld) 48 mL/min/1.73m??? Low >=60 [facility] Comment on above: Order Comment: Speci men Type: BLOOD SPECIMENOrdering Facility: [facility] Address: [address] [place], [place] [address] Result Comment: Nohemi mated Glomerular Filtration Rate (eGFR) is calculated using the 2020 CKD-EPI creatinine equation. This equation utilizes serum creatinine, sex, and age as parameters. The creatinine assay has traceable calibration to isotope dilution-mass spectrometry. Refer to KDIGO guidelines for clinical interpretation. In patients with unstable renal function, e.g. those with acute kidney injury, the eGFR may not accurately reflect actual GFR. Performed By: #### 2 4323-8, ####[facility] LABCLIA [id number] [place] [address] [place] Glucose [Mass/Vol] 98 mg/dL Normal 74-99 [facility] Comment on above: Order Comment: Karyn walker Type: BLOOD SPECIMENOrdering Facility: [facility] Address: [address] [place] [address] Result Comment: The [place] Diabetes Association (ADA) provides guidance for cutoff values for fasting glucose and random glucose. The ADA defines fasting as no caloric intake for at least 8 hours. Fasting plasma glucose results between 100 to 125 mg/dL indicate increased risk for diabetes (prediabetes).Fasting plasma glucose results greater than or equal to 126 mg/dL meet the criteria for diagnosis of diabetes. In the absence of unequivocal hyperglycemia, results should be confirmed by repeat testing. In a patient with classic symptoms of hyperglycemia or hyperglycemic crisis, random plasma glucose results greater than or equal to 200 mg/dL meet the criteria for diagnosis of diabetes.Reference: Standards of Medical Care in Diabetes 2016, [place] [employer] Association. Diabetes Care. 2016.39(Suppl 1). Performed By: #### 2 4323-8, ####[facility] LABCLIA [id number] [place] [address] [place] Potassium [Moles/Vol] 4.7 mmol/L Normal 3.7-5.1 [facility] Comment on above: Order Comment: Karyn walker Type: BLOOD SPECIMENOrdering Facility: [facility] Address: [address] [address] Performed By: #### 2 4323-8, ####[facility] LABCLIA [id number] [place] [address] [place] Protein [Mass/Vol] 6.5 g/dL Normal 6.3-8.0 [facility] Comment on above: Order Comment: Speci men Type: BLOOD SPECIMENOrdering Facility: [facility] Address: [address] [place] [address] Performed By: #### 2 4323-8, ####[facility] [place] LABCLIA [id number] [place] [address] [place] Sodium [Moles/Vol] 140 mmol/L Normal 136-144 [facility] Comment on above: Order Comment: Speci men Type: BLOOD SPECIMENOrdering Facility: [facility] Address: [address] [place] [address] Performed By: #### 2 4323-8, ####[facility] [place] LABCLIA [id number] [place] [address] [place] Urea nitrogen [Mass/Vol] 25 mg/dL High 9-24 [facility] Comment on above: Order Comment: Speci men Type: BLOOD SPECIMENOrdering Facility: [facility] Address: [address] [place] [address] Performed By: #### 2 4323-8, ####[facility] [place] LABCLIA [id number] [facility] [place] [address] [place] ECG COMPLETEon 08-09-2024 ECG COMPLETE Normal [facility] ED NOTEon 08-09-2024 ED NOTE HNO ID: [id number] Author: ANNIKA BLANKENSHIP RN Service: Nursing Author Type: Registered Nurse Type: ED Notes Filed: 08/09/2024 19:59 Note Text: Report given to YUNIOR Sheikh Normal [facility] ED NOTE HNO ID: [id number] Author: ANNIKA BLANKENSHIP RN Service: Nursing Author Type: Registered Nurse Type: ED Notes Filed: 08/09/2024 19:54 Note Text: [facility] critical care arrives for transport Normal [facility] ED NOTE HNO ID: [id number] Author: VICKI SANDERS RN Service: ? Author Type: Registered Nurse Type: ED Notes Filed: 08/09/2024 19:02 Note Text: Bed assignment [place] [id number] Report [id number] [facility] critical care ground ETA 2000 Normal [facility] ED NOTE Normal [facility] ED NOTE Normal [facility] ED PROV NOTEon 08-09-2024 ED PROV NOTE Normal [facility] Ethanol SerPl-mCncon 08-09-2 025 Ethanol [Mass/Vol] mg/dL Normal <11 [facility] Comment on above: Order Comment: Speci men Type: BLOOD SPECIMENOrdering Facility: [facility] Address: [address] [place] [address] Performed By: #### 5 643-2 ####[facility] LABIA [id number] [place] [id number] [facility] HIGH SENSITIVITY TROPONIN To n 08-09-2024 Troponin T.cardiac High sensitivity method [Mass/Vol] 23 ng/L High <12 [facility] Comment on above: Order Comment: Speci men Type: BLOOD SPECIMENOrdering Facility: [facility] Address: [address] [place] [address] Performed By: #### H STNT ####[facility] LABIA [id number] [place] [id number] [facility] HISTORY PHYSICALon HISTORY PHYSICAL Normal [facility] HISTORY PHYSICAL Normal [facility] Magnesium [facility] Magnesium [Mass/Vol] 2.2 mg/dL Normal 1.7-2.3 [facility] Comment on above: Order Comment: Speci men Type: BLOOD SPECIMENOrdering Facility: [facility] Address: [address] [place] [address] Performed By: #### 2 4323-8, 61152-7 ####[facility] LABCLIA [id number] [place] [address] [facility] PT panel Coag (PPP)on 2024 INR Coag (PPP) [Relative time] 1.0 {INR} Normal 0.9-1.3 [facility] Comment on above: Order Comment: Karyn walker Type: BLOOD SPECIMENOrdering Facility: [facility] Address: [address] [place] [address] Result Comment: Milla min K Antagonist (VKA) Therapeutic Range: INR 2 to 3 (Target INR of 2.5)Note: For patients treated with VKA drugs, such as warfarin, the [employer] 2012 Guideline recommends a therapeutic INR range of 2 to 3 (target INR of 2.5). This recommendation includes high-risk patients with antiphospholipid syndrome with previous arterial or venous thromboembolism, current-generation mechanical or bioprosthetic aortic heart valve replacement.Note: Patients with mechanical aortic valve replacement and additional risk factors for thromboembolic events (atrial fibrillation, previous thromboembolism, LV dysfunction, hypercoagulable conditions) or an older generation mechanical AVR (i.e., ball in-Cage) or any mechanical MVR should have a INR therapeutic range of 2.5 to 3.5 (target INR of 3).Marc GH, et al. Chest 2012, 141:7S-47SNishimura RA, et al. [facility] 2017, 70: 252-289 Performed By: #### 3 4528-0 ####[facility] LABCLIA [id number] [address] [place] PT Coag (PPP) [Time] 10.4 s Normal <13.1 [facility] Comment on above: Order Comment: Karyn walker Type: BLOOD SPECIMENOrdering Facility: [facility] Address: [address] [place] [address] Performed By: #### 3 4528-0 ####[facility] LABCLIA [id number] [place] [address] [place] TYPE + SCREENon 08-09-2024 ABO O Normal [facility] Comment on above: Order Comment: Karyn walker Type: BLOOD SPECIMENOrdering Facility: [facility] Address: [address] [place] [address] Performed By: #### T SCR ####[facility] B[facility] BANKCLIA [id number] [address] [place] Rh Nom (Bld) Positive Normal [facility] Comment on above: Order Comment: Speci men Type: BLOOD SPECIMENOrdering Facility: [facility] Address: [address] [place] [address] Performed By: #### T SCR ####[facility] BLOOD BANKCLIA [id number] [address] TYPE AND SCREEN EXPIRATION 08/12/2024 23:59 Normal [facility] Comment on above: Order Comment: Speci men Type: BLOOD SPECIMENOrdering Facility: [facility] Address: [address] [place] [address] Performed By: #### T SCR ####[facility] BLOOD BANKCLIA [id number] [place] [id number] [facility] Urinalysis complete panel (U )on 08-09-2024 Bacteria LM.HPF (Urine sed) [#/Area] Few Abnormal None Seen [facility] Comment on above: Order Comment: Speci men Type: URINE SPECIMENOrdering Facility: [facility] Address: [address] [place] [address] Performed By: #### 2 4356-8 ####[facility] LABCLIA [id number] [place] [id number] [facility] Bilirubin Ql (U) Negative Normal Negative [facility] Comment on above: Order Comment: Speci men Type: URINE SPECIMENOrdering Facility: [facility] Address: [address] [place] [address] Performed By: #### 2 4356-8 ####[facility] LABCLIA [id number] [place] [address] [facility] [place] Clarity (Unsp spec) Clear Normal Clear [facility] Comment on above: Order Comment: Speci men Type: URINE SPECIMENOrdering Facility: [facility] Address: [address] [place] [address] Performed By: #### 2 4356-8 ####[facility] LABCLIA [id number] [place] [address] [facility] Color (U) Yellow Normal Yellow [facility] Comment on above: Order Comment: Speci men Type: URINE SPECIMENOrdering Facility: [facility] Address: [address] [place] [address] Performed By: #### 2 4356-8 ####[facility] LABCLIA [id number] [facility] [place] [address] [facility] [place] Glucose Test strip (U) [Mass/Vol] Negative Normal Negative [facility] Comment on above: Order Comment: Speci men Type: URINE SPECIMENOrdering Facility: [facility] Address: [address] [place] [address] Performed By: #### 2 4356-8 ####[facility] LABCLIA [id number] [place] [address] [place] Hemoglobin Ql (U) Negative Normal Negative [facility] Comment on above: Order Comment: Speci men Type: URINE SPECIMENOrdering Facility: [facility] Address: [address] [place] [address] Performed By: #### 2 4356-8 ####[facility] LABCLIA [id number] [place] [address] [place] Ketones Ql (U) Negative Normal Negative [facility] Comment on above: Order Comment: Speci men Type: URINE SPECIMENOrdering Facility: [facility] Address: [address] [place] [address] Performed By: #### 2 4356-8 ####[facility] LABCLIA [id number] [facility] [place] [address] [place] Leukocyte esterase Test strip Ql (U) Negative Normal Negative [facility] Comment on above: Order Comment: Speci men Type: URINE SPECIMENOrdering Facility: [facility] Address: [address] [place] [address] Performed By: #### 2 4356-8 ####[facility] LABCLIA [id number] [facility] [place] [address] [place] Nitrite Ql (U) Negative Normal Negative [facility] Comment on above: Order Comment: Speci men Type: URINE SPECIMENOrdering Facility: [facility] Address: [address] [place] [address] Performed By: #### 2 4356-8 ####[facility] LABCLIA [id number] [place] [address] [place] pH (U) 5.5 [pH] Normal 5.0-8.0 [facility] Comment on above: Order Comment: Speci men Type: URINE SPECIMENOrdering Facility: [facility] Address: [address] [place] [address] Performed By: #### 2 4356-8 ####[facility] LABCLIA [id number] [place] [address] [place] Protein (U) [Mass/Vol] Trace Abnormal Negative [facility] Comment on above: Order Comment: Speci men Type: URINE SPECIMENOrdering Facility: [facility] Address: [address] [place] [address] Performed By: #### 2 4356-8 ####[facility] LABCLIA [id number] [place] [address] [place] RBC LM.HPF (Urine sed) [#/Area] 0-3 /HPF Normal 0-3 /HPF [facility] Comment on above: Order Comment: Speci men Type: URINE SPECIMENOrdering Facility: [facility] Address: [address] [place] [address] Performed By: #### 2 4356-8 ####[facility] LABCLIA [id number] [place] [address] [place] Specific gravity (U) [Rel density] 1.025 Normal 1.005-1.030 [facility] Comment on above: Order Comment: Speci men Type: URINE SPECIMENOrdering Facility: [facility] Address: [address] [place] [address] Performed By: #### 2 4356-8 ####[facility] LABCLIA [id number] [place] [address] [facility] Urobilinogen Ql (U) 0.2 EU/dL Normal 0.2-1.0 EU/dL [facility] Comment on above: Order Comment: Speci men Type: URINE SPECIMENOrdering Facility: [facility] Address: [address] [place] [address] Performed By: #### 2 4356-8 ####[facility] LABCLIA [id number] [place] [id number] [facility] WBC LM.HPF (Urine sed) [#/Area] 0-5 /HPF Normal 0-5 /HPF [facility] Comment on above: Order Comment: Speci men Type: URINE SPECIMENOrdering Facility: [facility] Address: [address] [place] [address] Performed By: #### 2 4356-8 ####[facility] LABCLIA [id number] [place] [id number] [facility] XR CHEST 1V FRONTALon 2024 XR CHEST 1V FRONTAL Normal [facility] CNPNon 07-07-2024 CNPN Telephone ([facility]) -------- CARLITO CHATTERJEE ([id number]) 1940 M Date Time Provider Department 07/07/24 Fritz ARCHULETA During your visit today, we recorded the following information about you: Blanca Anne RN 07/07/2024 3:17 PM Signed SPECIALTY CARE COORDINATION FOLLOW-UP NOTE Summary: Contacted patient regarding pathology results from his polyp taken on 06/29/24. Polyp is benign and patient is to have another colonscopy with Dr. Ramsay in 6 months. Patient expressed understanding. Signature Blanca Anne RN July 07, 2024 Allergies As of Date: 07/07/2024 Noted Allergy Reaction CELEBREX (CELECOXIB) 01/29/2014 4 - Hives 9 - Itching Date Reviewed: 06/29/2024 Reviewed by: Janis Rizo RN - Fully Assessed Prescriptions as of 07/07/2024 - Vardenafil HCl 20 mg tablet TAKE 1 TABLET BY MOUTH DAILY NEEDED PRIOR TO SEX - ramipril (ALTACE) 10 mg capsule Take 10 mg by mouth once daily. - tamsulosin ER (FLOMAX) 0.4 mg cap Take 0.4 mg by mouth once daily. 3 or 4 time a week - amLODIPine (NORVASC) 5 mg tablet Take 5 mg by mouth once daily. - metoprolol succinate ER (TOPROL XL) 100 mg Take 100 mg by mouth once daily. - rosuvastatin (CRESTOR) 5 mg tablet Take 10 mg by mouth once daily. - aspirin 81 mg chewable tablet Take 81 mg by mouth once daily. 3 time a week - clopidogrel (PLAVIX) 75 mg tablet Take 1 tablet by mouth once daily. Problem List As Of Date 07/07/2024 Noted Resolved CHRONIC HEPATITIS NOS [K73.9] 08/29/2006 Dissecting aneurysm of thoracic aorta, Hank*01/29/2014 Coronary artery disease with angina pectoris, u*01/29/2014 CKD (chronic kidney disease) stage 2, GFR 60-89*01/29/2014 Encounter for screening for malignant neoplasm *02/03/2014 Hyperglycemia [R73.9] 02/04/2014 Fluid overload [E87.70] 02/05/2014 Atelectasis [J98.11] 02/05/2014 Post-operative pain [G89.18] 02/05/2014 Confusion [R41.0] 02/06/2014 DM (diabetes mellitus) (HCC) [E11.9] 02/07/2014 Hypertension [I10] 02/07/2014 A-fib (HCC) [I48.91] 02/07/2014 07/04/2023 SUMMARY [V999.95] 02/07/2014 Visit for wound check [Z51.89] 03/29/2014 Age-related macular degeneration, dry, left eye*10/12/2014 Floaters [H43.399] 10/12/2014 Nuclear sclerotic cataract of right eye [H25.11]10/12/2014 PSC (posterior subcapsular cataract), left [IMO*10/12/2014 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 Author Type: Physician Type: Anesthesia Postprocedure Evaluation Filed: 06/29/2024 11:23 Note Text: POST ANESTHESIA EVALUATION NOTE : 1940 Procedure Summary Date: 06/29/24 Room / Location: Gastroenterology Anesthesia Start: 1008 Anesthesia Stop: 1058 Procedure: COLONOSCOPY DIAGNOSTIC Diagnosis: Polyp of colon, unspecified part of colon, unspecified type (For therapy of colon polyps) Scheduled Providers: Fritz Archuleta MD; Tracey Howard APRN.ENROBER; Ham Mccarthy MD Responsible Provider: Ham Mccarthy MD Anesthesia Type: general ASA Status: 3 Anesthesia Type: general Airway Type: supplemental O2 Last Vitals Vitals Value Taken Time BP 113/63 06/29/24 1120 Temp 36.2 ?C (97.2 ?F) 06/29/24 1100 Pulse 73 06/29/24 1121 Resp 16 06/29/24 1120 SpO2 97 % 06/29/24 1121 Vitals shown include unfiled device data. Post Anesthesia Patient Status Patient Evaluation: PACU. PACU/ICU Patient Condition: stable. Anticipated Disposition: phase 2 then home. Neurological Status: aware and responsive. Pulmonary Status: breathing comfortably on room air Airway Control: returned to baseline unsupported. Cardiovascular Status: stable. Pain Management: clinically adequate Postoperative Hydration: acceptable. Intraoperative Events: no significant anesthesia events Post Operative Nausea/Vomiting Status: no significant post operative nausea or vomiting Recommendation: continue current plan of care. Anesthesia Observations No Documentation SIGNATURE: Ham Mccarthy MD PATIENT NAME: Carlito Chatterjee DATE: June 29, 2024 TIME: 11:23 AM CSN: [id number] Normal [facility] ANES PRE-OPon 06-29-2024 ANES PRE-OP HNO ID: [id number] Author: HAM MCCARTHY MD Service: ? Author Type: Physician Type: Anesthesia Preprocedure Evaluation Filed: 06/29/2024 10:20 Note Text: ANESTHESIOLOGY DAY OF SURGERY NOTE : 1940 Procedure Information Anesthesia Start Date/Time: 06/29/24 1008 Scheduled providers: Fritz Archuleta MD; Tracey Howard APRN.ENROBER; Ham Mccarthy MD Procedure: COLONOSCOPY DIAGNOSTIC Location: Gastroenterology Estimated body mass index is 25.84 kg/m? as calculated from the following: Height as of this encounter: 175.3 cm (5' 9). Weight as of this encounter: 79.4 kg (175 lb). Most recent hematocrit and potassium results: Hematocrit 44.4 10/14/2014 Potassium 4.5 12/21/2016 Relevant Problems CARDIO (+) Coronary artery disease with angina pectoris, unspecified vessel or lesion type, unspecified whether [place] or transplanted heart (+) Dissecting aneurysm of thoracic aorta, [place]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) (+) Hypertension (+) Sinus bradycardia -RENAL (+) CKD (chronic kidney disease) stage 2, GFR 60-89 ml/min (+) Chronic hepatitis, unspecified (HCC) NEURO-PSYCH (+) History of colonic polyps I - PHYSICAL EVALUATION AIRWAY Patient intubated: No. Tracheostomy tube not present Mallampati: II. TM distance: >3 FB. Neck ROM: full ROM without neurological symptoms. Mouth opening: adequate. Short neck: no. Thick neck: no DENTAL Normal dental observations. Dental findings: teeth intact. II - ANESTHESIA PLAN ASA Score: 3 Anesthetic Plan: general Airway type: supplemental O2 The patient is not a current smoker. NPO Status: adequate Beta Edmund Monitoring Plan Monitoring plan: standard ASA. Post Procedure Analgesic Plan Informed Consent Anesthetic risks, benefits, alternatives, personnel and consent discussed: yes. Patient / Responsible Republican agrees to proceed: yes Patient / Surrogate agrees to blood products: blood products not planned Potential Anesthesia issues that may suggest increased risk of complications or contraindication to planned procedure: none. Vitals Value Taken Time BP 151/67 06/29/24913 Pulse Resp 17 06/29/24913 Temp 36 ?C (96.8 ?F) 06/29/24913 SpO2 97 % 06/29/24913 Outpatient Medications as of 06/29/2024 Medication Sig - Vardenafil HCl 20 mg tablet TAKE 1 TABLET BY MOUTH DAILY NEEDED PRIOR TO SEX - ramipril (ALTACE) 10 mg capsule Take 10 mg by mouth once daily. - tamsulosin ER (FLOMAX) 0.4 mg cap Take 0.4 mg by mouth once daily. 3 or 4 time a week - amLODIPine (NORVASC) 5 mg tablet Take 5 mg by mouth once daily. - metoprolol succinate ER (TOPROL XL) 100 mg Take 100 mg by mouth once daily. - rosuvastatin (CRESTOR) 5 mg tablet Take 10 mg by mouth once daily. - aspirin 81 mg chewable tablet Take 81 mg by mouth once daily. 3 time a week - clopidogrel (PLAVIX) 75 mg tablet Take 1 tablet by mouth once daily. Facility-Administered Medications as of 06/29/2024 Medication Dose Route Frequency - lidocaine (PF) 10 mg/mL (1 %) 1-2 mg injection (XYLOCAINE) 0.1-0.2 mL INTRADERMAL PRN - propofol infusion (DIPRIVAN) INTRAVENOUS X (ONE-STEP ONLY) CONTINUOUS PRN - lidocaine (PF) 10 mg/mL (1 %) injection (XYLOCAINE) INTRAVENOUS PRN - propofol injection (DIPRIVAN) INTRAVENOUS PRN - NaCl 0.9% iv infusion INTRAVENOUS X (ONE-STEP ONLY) CONTINUOUS PRN I have interviewed and examined the patient. I have reviewed the medical record and/or the pre-anesthesia evaluation, pertinent labs, and test results. This contains updated information obtained within 48 hours of Surgery/Procedure. SIGNATURE: Ham Mccarthy MD PATIENT NAME: Carlito Chatterjee DATE: June 29, 2024 TIME: 10:20 AM CSN: [id number] Normal [facility] Colonoscopyon 06-29-2024 Colonoscopy A31 Gastrointestinal Endoscopy Patient Name: Carlito Chatterjee Procedure Date: 06/29/2024 9:59 AM Date of : 1940 Admit Type: Outpatient Age: 84 Room: A3 PROC 3 Gender: Male Note Status: Finalized Attending MD: Cristian Archuleta MD, [id number] Procedure: Colonoscopy Indications: Therapeutic procedure for colon polyps Providers: Cristian Archuleta MD Patient Profile: This is an 84 year old male. Refer to note in patient chart for documentation of history and physical. Last Colonoscopy: December 2023. Referring Physician: Manuel Ramsay MD (Referring MD) Medicines: Monitored Anesthesia Care Complications: No immediate complications. Requesting Provider: Manuel Ramsay MD Procedure: Pre-Anesthesia Assessment: - Prior to the procedure, a History and Physical was performed, and patient medications and allergies were reviewed. The risks and benefits of the procedure and the sedation options and risks were discussed with the patient. All questions were answered and informed consent was obtained. Patient identification and proposed procedure were verified by the physician, the nurse and the anesthesiologist in the endoscopy suite. Prophylactic Antibiotics: The patient does not require prophylactic antibiotics. Prior Anticoagulants: The patient has taken Plavix (clopidogrel), last dose was 5 days prior to procedure. ASA Grade Assessment: II - A patient with mild systemic disease. After reviewing the risks and benefits, the patient was deemed in satisfactory condition to undergo the procedure. The anesthesia plan was to use monitored anesthesia care (MAC). Immediately prior to administration of medications, the patient was re-assessed for adequacy to receive sedatives. The heart rate, respiratory rate, oxygen saturations, blood pressure, adequacy of pulmonary ventilation, and response to care were monitored throughout the procedure. The physical status of the patient was re-assessed after the procedure. After I obtained informed consent, the scope was passed under direct vision. Throughout the procedure, the patient's blood pressure, pulse, and oxygen saturations were monitored continuously. The Colonoscope was introduced through the anus and advanced to the cecum, identified by appendiceal orifice and ileocecal valve. The colonoscopy was performed without difficulty. The patient tolerated the procedure well. The quality of the bowel preparation was good. The ileocecal valve, appendiceal orifice, and rectum were photographed. Moderate Sedation: Moderate (conscious) sedation was personally administered by an anesthesia professional. The following parameters were monitored: oxygen saturation, heart rate, blood pressure, respiratory rate, EKG, adequacy of pulmonary ventilation, and response to care. MAC anesthesia was administered by the anesthesia team. Findings: The perianal and digital rectal examinations were normal. A 12 mm, non-bleeding polyp was found in the proximal ascending colon. The polyp was sessile. Preparations were made for mucosal resection. Chromoscopy with methylene blue was done. Demarcation of the lesion was performed during the procedure with thermal marking to clearly identify the boundaries of the lesion. 10 mL of BlueBoost was injected with adequate lift of the lesion from the muscularis propria. Snare mucosal resection with suction (via the working channel) retrieval was performed. A 12 mm area was resected. Resection and retrieval were complete. Resected tissue margins were examined and clear of polyp tissue. There was no bleeding at the end of the procedure. To close a defect after mucosal resection, a clip was placed. Clip banjo repair person: DerbyJackpot. There was no bleeding at the end of the procedure. We started injecting at 10:40 and ended at 10:47. The exam was otherwise without abnormality. Impression: - One 12 mm, non-bleeding polyp in the proximal ascending colon, removed with mucosal resection. Resected and retrieved. Clip banjo repair person: DerbyJackpot. - The examination was otherwise normal. - Mucosal resection was performed. Resection and retrieval were complete. Estimated Blood Loss: Estimated blood loss was minimal. Recommendation: - Patient has a contact number available for emergencies. The signs and symptoms of potential delayed complications were discussed with the patient. Return to normal activities tomorrow. Written discharge instructions were provided to the patient. - Resume previous diet. - Continue present medications. - Await pathology results. - Repeat colonoscopy in 6 months to review the polypectomy site. - Return to referring physician. - Resume Plavix (clopidogrel) at prior dose in 5 days. Procedure Code(s): --- Professional --- 28964, Colonoscopy, flexible; with endoscopic mucosal resection Diagnosis Code(s): --- Professional --- D (more content not included)... Normal [facility] Flexible sigmoidoscopy study on 06-29-2024 A31 Gastrointestinal Endoscopy Patient Name: Carlito Chatterjee Procedure Date: 06/29/2024 9:59 AM Date of : 1940 Admit Type: Outpatient Age: 84 Room: [place] [address] Gender: Male Note Status: Finalized Attending MD: Cristian Archuleta MD, [id number] Procedure: Colonoscopy Indications: Therapeutic procedure for colon polyps Providers: Cristian Archuleta MD Patient Profile: This is an 84 year old male. Refer to note in patient chart for documentation of history and physical. Last Colonoscopy: December 2023. Referring Physician: Manuel Ramsay MD (Referring MD) Medicines: Monitored Anesthesia Care Complications: No immediate complications. Requesting Provider: Manuel Ramsay MD Procedure: Pre-Anesthesia Assessment: - Prior to the procedure, a History and Physical was performed, and patient medications and allergies were reviewed. The risks and benefits of the procedure and the sedation options and risks were discussed with the patient. All questions were answered and informed consent was obtained. Patient identification and proposed procedure were verified by the physician, the nurse and the anesthesiologist in the endoscopy suite. Prophylactic Antibiotics: The patient does not require prophylactic antibiotics. Prior Anticoagulants: The patient has taken Plavix (clopidogrel), last dose was 5 days prior to procedure. ASA Grade Assessment: II - A patient with mild systemic disease. After reviewing the risks and benefits, the patient was deemed in satisfactory condition to undergo the procedure. The anesthesia plan was to use monitored anesthesia care (MAC). Immediately prior to administration of medications, the patient was re-assessed for adequacy to receive sedatives. The heart rate, respiratory rate, oxygen saturations, blood pressure, adequacy of pulmonary ventilation, and response to care were monitored throughout the procedure. The physical status of the patient was re-assessed after the procedure. After I obtained informed consent, the scope was passed under direct vision. Throughout the procedure, the patient's blood pressure, pulse, and oxygen saturations were monitored continuously. The Colonoscope was introduced through the anus and advanced to the cecum, identified by appendiceal orifice and ileocecal valve. The colonoscopy was performed without difficulty. The patient tolerated the procedure well. The quality of the bowel preparation was good. The ileocecal valve, appendiceal orifice, and rectum were photographed. Moderate Sedation: Moderate (conscious) sedation was personally administered by an anesthesia professional. The following parameters were monitored: oxygen saturation, heart rate, blood pressure, respiratory rate, EKG, adequacy of pulmonary ventilation, and response to care. MAC anesthesia was administered by the anesthesia team. Findings: The perianal and digital rectal examinations were normal. A 12 mm, non-bleeding polyp was found in the proximal ascending colon. The polyp was sessile. Preparations were made for mucosal resection. Chromoscopy with methylene blue was done. Demarcation of the lesion was performed during the procedure with thermal marking to clearly identify the boundaries of the lesion. 10 mL of BlueBoost was injected with adequate lift of the lesion from the muscularis propria. Snare mucosal resection with suction (via the working channel) retrieval was performed. A 12 mm area was resected. Resection and retrieval were complete. Resected tissue margins were examined and clear of polyp tissue. There was no bleeding at the end of the procedure. To close a defect after mucosal resection, a clip was placed. Clip banjo repair person: DerbyJackpot. There was no bleeding at the end of the procedure. We started injecting at 10:40 and ended at 10:47. The exam was otherwise without abnormality. Impression: (more content not included)... [facility] Radiology Study observation (narrative) [facility] NURSING PROGon 06-29-2024 NURSING PROG HNO ID: [id number] Author: JANIS RIZO RN Service: Nursing Author Type: Registered Nurse Type: Nursing Progress Note Filed: 06/29/2024 11:26 Note Text: AMBULATORY PATIENT EDUCATION NOTE TOPIC: GI PROCEDURES: Colonoscopy with or without biopsies based on clinical findings READINESS TO LEARN INSTRUCTION PROVIDED TO: Patient and family member COGNITIVE ABILITY: Alert and oriented PTED MOTIVATION TO LEARN: Eager Interested FAMILY SUPPORT: High - Very involved in pt care IPATIENT LEARNS BEST BY: Written Instruction - Hand-outs Verbal Instruction FACTORS AFFECTING LEARNING: None PHYSICAL LIMITATIONS AFFECTING LEARNING: None LEARNING RESPONSE METHOD OF INSTRUCTION: Individual instruction PATIENT / FAMILY RESPONSE: Verbalizes understanding of: WORSENING CONDITION-Signs and symptoms of a worsening condition that warrant a call to the physician FOLLOW-UP PLAN: Complete - No need for follow-up SUPPLEMENTAL MATERIAL: Procedure Discharge Instructions REFERRAL (RECOMMENDATION): None Electronically Signed By: Janis Rizo RN [facility] NURSING PROG HNO ID: [id number] Author: SAVITA PATEL RN Service: ? Author Type: Registered Nurse Type: Nursing Progress Note Filed: 06/29/2024 09:13 Note Text: PRE OP LEARNING ASSESSMENT PROCEDURE/SURGERY: GI PROCEDURES: Colonoscopy READINESS TO LEARN COGNITIVE ABILITY: Alert and oriented MOTIVATION TO LEARN: Interested FAMILY SUPPORT: Moderate - Family present but overwhelmed PATIENT LEARNS BEST BY: Individual Instruction Verbal Instruction FACTORS AFFECTING LEARNING: None PHYSICAL LIMITATIONS AFFECTING LEARNING: None Electronically Signed By: Savita Patel RN In Department: GASTROENTEROLOGY [facility] Pathology biopsy report Osorio (Tiss)on 06-29-2024 AP DISCLAIMER [facility] Comment on above: Order Comment: Speci men Type: BLOOD SPECIMEN Ordering Facility: [facility] Address: [address] [place] [address] Result Comment: You mireles Developed Test (LDT) Disclaimer: Performance characteristics of immunohistochemical, immunofluorescent, and chromogenic in-situ hybridization tests have been determined by the performing laboratory within [facility] Pathology and Laboratory Medicine Department ([facility], [facility], [facility], [facility], [facility], [facility], or [facility]) in a manner consistent with CLIA requirements. One or more of these tests may not have been cleared or approved by the FDA. [facility] is regulated under CLIA as qualified to perform high-complexity testing. These tests are used for clinical purposes. These should not be regarded as investigational or for research. Positive and negative controls stain appropriately. Performed By: #### 2 4321-2 #### [facility] CLIA [id number] [address] [place] [address] [place] CASE REPORT [facility] Comment on above: Order Comment: Speci men Type: BLOOD SPECIMEN Ordering Facility: [facility] Address: [address] [place] [address] Result Comment: Surg [facility] Pathology Report Case: [id number] Authorizing Provider: Fritz Archuleta MD Collected: 06/29/2024 10:46 AM Ordering Location: Gastroenterology Received: 06/29/2024 04:18 PM Pathologist: Violeta Patton MD Specimen: Colon, Ascending Polyp Performed By: #### 2 4321-2 #### [facility] CLIA [id number] [address] STATES OF [facility] FINAL DIAGNOSIS [facility] Comment on above: Order Comment: Speci men Type: BLOOD SPECIMEN Ordering Facility: [facility] Address: [address] [place] [address] Result Comment: Asce nding colon polyp, endoscopic mucosal resection: - Fragments of sessile serrated polyp. JEL 07/01/2024 at 1126 EDT Performed By: #### 2 4321-2 #### [facility] CLIA [id number] [address] FINAL PERFORMING LAB [facility] Comment on above: Order Comment: Speci men Type: BLOOD SPECIMEN Ordering Facility: [facility] Address: [address] [place] [address] Result Comment: Diag nostic interpretation performed at: [facility], [address] [place] [address] CLIA# [id number] Press Worker Helper: Walter Hewitt MD Performed By: #### 2 4321-2 #### [facility] CLIA [id number] [address] GROSS DESCRIPTION [facility] Comment on above: Order Comment: Speci men Type: BLOOD SPECIMEN Ordering Facility: [facility] Address: [address] [place] [address] Result Comment: Melba gordon, Ascending Polyp Received in formalin are two segments of red-brown polypoid tissue aggregating to 1.2 x 0.5 x 0.4 cm. No stalks are present. The lines of resection are noted. The specimens are bisected and totally submitted in one cassette. Gross examination performed at [facility], [facility] [address] June 29, 2024 4:59 PM Performed By: #### 2 4321-2 #### [facility] CLIA [id number] [address] CNOVon 06-27-2024 CNOV Office Visit ([facility] ) -------- CARLITO CHATTERJEE ([id number]) 1940 M Date Time Provider Department 06/27/24 10:30 AM JENNIFER PAGAN [facility] During your visit today, we recorded the following information about you: Pulse Respiration Blood pressure Weight 62/minute 16/minute 106/68 80.8 kg Jennifer Pagan APRN.EARLY CHILDHOOD ASSISTANT 06/27/2024 12:36 PM Signed [facility] Subjective Carlito Chatterjee is a 84 year old male. Patient presents with: Left foot injury: X5 days HPI Carlito Chatterjee is a 84 year old male who presents with left foot pain, swelling, and bruising. He was seen here on 06/23 and had left shoulder and left knee xrays. He rates foot pain 09/24 and described it as aching. He has bruising around toes 3-5. Denies ankle pain or injury. Review of Systems Constitutional: Negative for fever. Musculoskeletal: Positive for joint swelling. See HPI Skin: Positive for color change. Objective BP 106/68 Pulse 62 Resp 16 Wt 80.8 kg (178 lb 2.1 oz) SpO2 98% BMI 25.93 kg/m? PAST MEDICAL HISTORY Diagnosis Date - Arrhythmia - Coronary artery disease - H/O colonoscopy with polypectomy 04/26/2011 multiple adenomatous polyps - 2 yr surveillance recommended - Hyperlipidemia - Impaired glucose tolerance - Kidney disease - PMH - PAST MEDICAL HISTORY OF hep C - treated in 2015. lab confirms virus irradicated. 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 Aguilar - COLONOSCOPY FLX DX W/COLLJ SPEC WHEN PFRMD 10/22/2016 Colonoscopy - COLONOSCOPY SCREENING 12/23/2023 - HERNIA REPAIR HX groin (right) - PAST SURGICAL HISTORY OF left knee surgery - PAST SURGICAL HISTORY OF 06/09/2000 heart cath - PAST SURGICAL HISTORY OF 01/2014 new aorta ascending - TONSILLECTOMY PRIMARY/SECONDARY Tonsillectomy ALLERGIES Celebrex [Celecoxib] MEDICATIONS - Vardenafil HCl 20 mg tablet TAKE 1 TABLET BY MOUTH DAILY NEEDED PRIOR TO SEX - ramipril (ALTACE) 10 mg capsule Take 10 mg by mouth once daily. - tamsulosin ER (FLOMAX) 0.4 mg cap Take 0.4 mg by mouth once daily. 3 or 4 time a week - amLODIPine (NORVASC) 5 mg tablet Take 5 mg by mouth once daily. - metoprolol succinate ER (TOPROL XL) 100 mg Take 100 mg by mouth once daily. - rosuvastatin (CRESTOR) 5 mg tablet Take 10 mg by mouth once daily. - aspirin 81 mg chewable tablet Take 81 mg by mouth once daily. 3 time a week - clopidogrel (PLAVIX) 75 mg tablet Take 1 tablet by mouth once daily. FAMILY HISTORY Problem Relation Age of Onset - Ischemic Heart Disease Father - Ischemic Heart Disease Mother - Ischemic Heart Disease Sister 71 - Diabetes Brother - Stroke Brother Social History Tobacco Use - Smoking status: Every Day Types: Pipe Passive exposure: Past - Smokeless tobacco: Never - Tobacco comments: pipe for 50 years /quit -2016 started again with pipe Vaping Use - Vaping status: Never Used Substance Use Topics - Alcohol use: Not Currently - Drug use: Never Physical Exam Vitals and nursing note reviewed. Constitutional: General: He is not in acute distress. Appearance: Normal appearance. He is not ill-appearing. Musculoskeletal: General: Swelling, tenderness and signs of injury present. No deformity. Left ankle: Normal. No swelling or ecchymosis. No tenderness.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 (FLOMAX) 0.4 mg cap Take 0.4 mg by mouth once daily. 3 or 4 time a week amLODIPine (NORVASC) 5 mg tablet Take 5 mg by mouth once daily. metoprolol succinate ER (TOPROL XL) 100 mg Take 100 mg by mouth once daily. rosuvastatin (CRESTOR) 5 mg tablet Take 10 mg by mouth once daily. aspirin 81 mg chewable tablet Take 81 mg by mouth once daily. 3 time a week clopidogrel (PLAVIX) 75 mg tablet Take 1 tablet by mouth once daily. FAMILY HISTORY Problem Relation Age of Onset Ischemic Heart Disease Father Ischemic Heart Disease Mother Ischemic Heart Disease Sister 71 Diabetes Brother Stroke Brother Social History Tobacco Use Smoking status: Every Day Types: Pipe Passive exposure: Past Smokeless tobacco: Never Tobacco comments: pipe for 50 years /quit -2016 started again with pipe Vaping Use Vaping status: Never Used Substance Use Topics Alcohol use: Not Currently Drug use: Never Review of Systems Constitutional: Positive for fever. HENT: Positive for congestion and sore throat. Negative for ear pain and nosebleeds. Respiratory: Positive for cough and sputum production. Negative for shortness of breath and wheezing. Musculoskeletal: Negative for neck pain. Skin: Negative for itching and rash. Objective Blood pressure 106/56, pulse 78, temperature 36.8 ?C (98.3 ?F), temperature source Left Tympanic, resp. rate 16, weight 81.2 kg (179 lb 0.2 oz), SpO2 97%. Latest Ref Rng 07/03/2023 Creatinine (POCT) 0.7 - 1.4 mg/dL 1.40 eGFR (POCT) mL/min/1.73 m2 50 Physical Exam Constitutional: General: He is not in acute distress. Appearance: He is not toxic-appearing or diaphoretic. HENT: Head: Normocephalic and atraumatic. Cardiovascular: Rate and Rhythm: Normal rate and regular rhythm. Heart sounds: Normal heart sounds, S1 normal and S2 normal. Pulmonary: Effort: Pulmonary effort is normal. Breath sounds: Normal breath sounds. Lymphadenopathy: Cervical: No cervical adenopathy. Right cervical: No superficial cervical adenopathy. Left cervical: No superficial cervical adenopathy. Neurological: Mental Status: He is alert and oriented to person, place, and time. Gait: Gait is intact. ASSESSMENT/PLAN: 1. Sinobronchitis - ICD9: 473.9, 490, ICD10: J32.9, J40 (primary diagnosis) - Will begin treatment with as per antibiotic as written, see orders - Supportive care with plenty of fluids, rest, and analgesia prn. - Follow up in 3-5 days if symptoms persist or worsen. - DOXYCYCLINE MONOHYDRATE 100 MG TABLET - PREDNISONE 20 MG TABLET 2. Acute cough - ICD9: 786.2, ICD10: R05.1 - XR CHEST 2V FRONTAL/LAT IMPRESSION: No acute radiographic abnormality. Dictated by : MD Sondra MUSE APRN.Sondra Darling APRN.VELASQUEZ 04/10/2024 11:36 AM Signed ASSESSMENT/PLAN: 1. Sinobronchitis - ICD9: 473.9, 490, ICD10: J32.9, J40 (primary diagnosis) - Will begin treatment with as per antibiotic as written, see orders - Supportive care with plenty of fluids, rest, and analgesia prn. - Follow up in 3-5 days if symptoms persist or worsen. - DOXYCYCLINE MONOHYDRATE 1 (more content not included)... [facility] XR CHEST 2V FRONTAL/LATon XR CHEST 2V FRONTAL/LAT * * *Final Report* * * DATE OF EXAM: Apr 10 2024 11:00AM WOX 5291 - XR CHEST 2V FRONTAL/LAT / PROCEDURE REASON: Acute cough * * * * Physician Interpretation * * * * EXAMINATION: CHEST RADIOGRAPH (2 VIEW FRONTAL and LATERAL) CLINICAL HISTORY: Acute cough MQ: XC2_6 EXAM DATE/TIME: 04/10/2024 11:00 AM COMPARISON: 12/20/2014 RESULT: Lines, tubes, and devices: None. Lungs and pleura: No consolidation. No lung mass. No pleural effusion. No pneumothorax. Cardiomediastinal silhouette: Normal cardiomediastinal silhouette. Bones and soft tissues: Status post median sternotomy with normally aligned sternal wires. IMPRESSION: No acute radiographic abnormality. Global Sales Director: BRIONNA Transcribe Date/Time: Apr 10 2024 11:13A Dictated by : VIOLETA COOPER MD This examination was interpreted and the report reviewed and electronically signed by: VIOLETA COOPER MD on Apr 10 2024 11:13AM EST [id number] [facility] XR Chest PA and Lateralon IMPRESSION: No acute radiographic abnormality. Global Sales Director: BRIONNA Transcribe Date/Time: Apr 10 2024 11:13A Dictated by : VIOLETA COOPER MD This examination was interpreted and the report reviewed and electronically signed by: VIOLETA COOPER MD on Apr 10 2024 11:13AM [facility] DIVISION OF RADIOLOGY * * *Final Report* * * DATE OF EXAM: Apr 10 2024 11:00AM WOX 5291 - XR CHEST 2V FRONTAL/LAT / PROCEDURE REASON: Acute cough * * * * Physician Interpretation * * * * EXAMINATION: CHEST RADIOGRAPH (2 VIEW FRONTAL & LATERAL) CLINICAL HISTORY: Acute cough MQ: XC2_6 EXAM DATE/TIME: 04/10/2024 11:00 AM COMPARISON: 12/20/2014 RESULT: Lines, tubes, and devices: None. Lungs and pleura: No consolidation. No lung mass. No pleural effusion. No pneumothorax. Cardiomediastinal silhouette: Normal cardiomediastinal silhouette. Bones and soft tissues: Status post median sternotomy with normally aligned sternal wires. DIVISION OF RADIOLOGY Provider, [facility] - 04/10/2024 * * *Final Report* * * DATE OF EXAM: Apr 10 2024 11:00AM WOX 5291 - XR CHEST 2V FRONTAL/LAT / PROCEDURE REASON: Acute cough * * * * Physician Interpretation * * * * EXAMINATION: CHEST RADIOGRAPH (2 VIEW FRONTAL & LATERAL) CLINICAL HISTORY: Acute cough MQ: XC2_6 EXAM DATE/TIME: 04/10/2024 11:00 AM COMPARISON: 12/20/2014 RESULT: Lines, tubes, and devices: None. Lungs and pleura: No consolidation. No lung mass. No pleural effusion. No pneumothorax. Cardiomediastinal silhouette: Normal cardiomediastinal silhouette. Bones and soft tissues: Status post median sternotomy with normally aligned sternal wires. IMPRESSION IMPRESSION: No acute radiographic abnormality. Global Sales Director: BRIONNA Transcribe Date/Time: Apr 10 2024 11:13A Dictated by : VIOLETA COOPER MD This examination was interpreted and the report reviewed and electronically signed by: VIOLETA COOPER MD on Apr 10 2024 11:13AM EST [facility] Radiology Study observation (narrative) [facility] XR Chest PA and LateralOrder ed By: Ccf Provider on 04-10-2024 [facility] Comprehensive Metabolic Prof ilon 04-03-2024 Albumin [Mass/Vol] 3.6 g/dL Normal 3.2-5.0 [facility] Comment on above: Order Comment: Order Date: 04/03/24Order Info: 0786-1 - CMP Performed By: #### L 500.4050 ####[facility] [address] [place], [address] Albumin/Globulin [Mass ratio] 1.3 {ratio} Normal 0.9-2.4 [facility] Comment on above: Order Comment: Order Date: 04/03/24Order Info: 0786-1 - CMP Performed By: #### L 500.4050 ####[facility] [address] [place], [address] ALK P 41 U/L Low 45-117 [facility] Comment on above: Order Comment: Order Date: 04/03/24Order Info: 0786-1 - CMP Performed By: #### L 500.4050 ####[facility] [address] [place], [address] ALT [Catalytic activity/Vol] 21 U/L Normal 16-61 [facility] Comment on above: Order Comment: Order Date: 04/03/24Order Info: 0786-1 - CMP Performed By: #### L 500.4050 ####[facility] [address] [place], [address] AST [Catalytic activity/Vol] 18 U/L Normal 15-37 [facility] Comment on above: Order Comment: Order Date: 04/03/24Order Info: 0786-1 - CMP Performed By: #### L 500.4050 ####[facility] [address] [place], [address] Bilirubin [Mass/Vol] 0.40 mg/dL Normal 0.20-1.00 [facility] Comment on above: Order Comment: Order Date: 04/03/24Order Info: 0786-1 - CMP Result Comment: For patients on eltrombopag therapy, use of Dimension [place] TBIL is not recommended. Performed By: #### L 500.4050 ####[facility] [address] [place], [address] BUN/CRE 18.4 RATIO Normal 10-20 [facility] Comment on above: Order Comment: Order Date: 04/03/24Order Info: 0786-1 - CMP Performed By: #### L 500.4050 ####[facility] [address] [place], [address] CA,Total 9.0 mg/dL Normal 8.5-10.1 [facility] Comment on above: Order Comment: Order Date: 04/03/24Order Info: 0786-1 - CMP Performed By: #### L 500.4050 ####[facility] [address] [place], [address] Chloride [Moles/Vol] 110 mmol/L High 98-107 [facility] Comment on above: Order Comment: Order Date: 04/03/24Order Info: 0786-1 - CMP Performed By: #### L 500.4050 ####[facility] [address] [place], [address] CO2 [Moles/Vol] 27.0 mmol/L Normal 21.0-32.0 [facility] Comment on above: Order Comment: Order Date: 04/03/24Order Info: 0786-1 - CMP Performed By: #### L 500.4050 ####[facility] [address] [place], [address] Creatinine [Mass/Vol] 1.52 mg/dL High 0.70-1.30 [facility] Comment on above: Order Comment: Order Date: 04/03/24Order Info: 0786-1 - CMP Result Comment: The validity of the calculated GFR GFRAA in patients over 70 years has not been determined. Clinical correlation is essential. Performed By: #### L 500.4050 ####[facility] [address] [place], [address] EST GFR - AA 57 mL/min Low >60 [facility] Comment on above: Order Comment: Order Date: 04/03/24Order Info: 0786-1 - CMP Result Comment: Afri can Italian GFR Calc Performed By: #### L 500.4050 ####[facility] [address] [place], [address] GAP 3 Low 5-15 [facility] Comment on above: Order Comment: Order Date: 04/03/24Order Info: 0786-1 - CMP Performed By: #### L 500.4050 ####[facility] [address] [place], [address] GFR/1.73 sq M.predicted among non-blacks MDRD (S/P/Bld) [Vol rate/Area] 47 mL/min/{1.73_m2} Low >60 [facility] Comment on above: Order Comment: Order Date: 04/03/24Order Info: 0786-1 - CMP Result Comment: Non- GFR Calc Performed By: #### L 500.4050 ####[facility] [address] [place], [address] Globulin (S) [Mass/Vol] 2.7 g/dL Normal 2.2-4.2 [facility] Comment on above: Order Comment: Order Date: 04/03/24Order Info: 0786-1 - CMP Performed By: #### L 500.4050 ####[facility] [address] [place], [place], [phone] Glucose [Mass/Vol] 120 mg/dL High 74-106 [facility] Comment on above: Order Comment: Order Date: 04/03/24Order Info: 0786-1 - CMP Result Comment: Fast ing Glucose result from 100 to 125 mg/dL suggests IMPAIRED HOMEOSTASIS per A.D.A. criteria. Performed By: #### L 500.4050 ####[facility] [address] [place], [address] Potassium [Moles/Vol] 4.5 mmol/L Normal 3.5-5.1 [facility] Comment on above: Order Comment: Order Date: 04/03/24Order Info: 0786-1 - CMP Performed By: #### L 500.4050 ####[facility] [address] [place], [address] Sodium [Moles/Vol] 140 mmol/L Normal 136-145 [facility] Comment on above: Order Comment: Order Date: 04/03/24Order Info: 0786-1 - CMP Performed By: #### L 500.4050 ####[facility] [address] [place], [address] T PROT 6.3 g/dL Low 6.4-8.2 [facility] Comment on above: Order Comment: Order Date: 04/03/24Order Info: 0786-1 - CMP Performed By: #### L 500.4050 ####[facility] [address] [place], [address] Urea nitrogen [Mass/Vol] 28 mg/dL High 7-18 [facility] Comment on above: Order Comment: Order Date: 04/03/24Order Info: 0786-1 - CMP Performed By: #### L 500.4050 ####[facility] [address] [place], [address] Venous Duplex US - Miquel Extre mon 04-03-2024 Venous Duplex US - Miquel Extrem [facility] [address] [place] [address] Venous Duplex US - Miquel Extrem 04/03/24 0848 MR#: [id number] Acct: [id number] Name: CARLITO CHATTERJEE Rep #: [id number] : 1940 84 From: Chris Zavala MD Attending Dr: Dr. Edson Baptsite MD Status: R EG [facility] Ordering Dr: Edson Baptiste MD Date: 04/03/24 Location: [facility] Sex: M C Admitted: Reason For Study: Pain RIGHT LEFT GSV is normal. GSV is normal. CFV is compressible, spontaneous, phasic, CFV is compressible, spontaneous, phasic, competent and demonstrates normal competent, and demonstrates normal augmentation. augmentation. FV is compressible, spontaneous, phasic, FV is compressible, spontaneous, phasic, competent and demonstrates normal competent and demonstrates normal augmentation. augmentation. POP V is compressible, spontaneous, phasic, POP V is compressible, spontaneous, phasic, competent and demonstrates normal competent and demonstrates normal augmentation. augmentation. T/P Trunk is compressible. T/P Trunk is compressible. PTV is compressible. PTV is compressible. RT PerV is compressible. LT PerV is compressible. Procedure This is a venous duplex using B-mode, color flow and spectral Doppler. Exam performed in department. A preliminary report was called and/or faxed to Dr. Edson Baptiste MD. VL/Venous Duplex US - Miquel Extrem Interpretation Summary Deep veins of the bilateral lower extremities are patent and compressible segmentally. There is no evidence of bilateral lower extremity deep vein thrombosis. The bilateral great saphenous veins appear patent and compressible segmentally. Ordering Physician: Edson Baptiste Referring Physician: Edson Baptiste Performed By: Christine Lacey RVT and Student 04/06/24 1133 Date Chris Zavala MD CC: Dr. Edson Baptiste MD Date Dictated: 04/03/24 0848 Date Transcribed: 04/06/24 1133 Global Sales Director: Signed [facility] 02-20-[address] [facility] Telephone (GENSWS) -------- ANTHONYCARILTO Moulton ([id number]) 1940 M Date Time Provider Department 02/20/24 MANUEL RAMSAY GENVERÓNICA During your visit today, we recorded the following information about you: Kaye Marie LPN 02/20/2024 9:38 AM Signed Angelita, patient , called. Verified name and date of of patient. Patient had procedure 12/23/2023 and was referred to see Dr. Archuleta 01/22/2024 but does not recall getting results of colonscopy. Patient has procedure scheduled in June 2024 due to plans to [place] of [place] for a [place] months. Please review and advise. KEREN Scott Daniel P, MD 02/20/2024 9:42 AM Signed benign polyp Caroline Lacy RN 02/20/2024 5:09 PM Signed Pt contacted and give results below. Pt had no further questions.Caroline Lacy RN Allergies As of Date: 02/20/2024 Noted Allergy Reaction CELEBREX (CELECOXIB) 01/29/2014 4 - Hives 9 - Itching Date Reviewed: 01/22/2024 Reviewed by: Jaime Smith RN - Fully Assessed Reason for Visit: Results [95] Prescriptions as of 02/21/2024 - ramipril (ALTACE) 10 mg capsule Take 10 mg by mouth once daily. - tamsulosin ER (FLOMAX) 0.4 mg cap Take 0.4 mg by mouth once daily. 3 or 4 time a week - amLODIPine (NORVASC) 5 mg tablet Take 5 mg by mouth once daily. - metoprolol succinate ER (TOPROL XL) 100 mg Take 100 mg by mouth once daily. - rosuvastatin (CRESTOR) 5 mg tablet Take 10 mg by mouth once daily. - aspirin 81 mg chewable tablet Take 81 mg by mouth once daily. 3 time a week - clopidogrel (PLAVIX) 75 mg tablet Take 1 tablet by mouth once daily. Problem List As Of Date 02/20/2024 Noted Resolved CHRONIC HEPATITIS NOS [K73.9] 08/29/2006 Dissecting aneurysm of thoracic aorta, [place]*01/29/2014 Coronary artery disease with angina pectoris, u*01/29/2014 CKD (chronic kidney disease) stage 2, GFR 60-89*01/29/2014 Encounter for screening for malignant neoplasm *02/03/2014 Hyperglycemia [R73.9] 02/04/2014 Fluid overload [E87.70] 02/05/2014 Atelectasis [J98.11] 02/05/2014 Post-operative pain [G89.18] 02/05/2014 Confusion [R41.0] 02/06/2014 DM (diabetes mellitus) (HCC) [E11.9] 02/07/2014 Hypertension [I10] 02/07/2014 A-fib (HCC) [I48.91] 02/07/2014 07/04/2023 SUMMARY [V999.95] 02/07/2014 Visit for wound check [Z51.89] 03/29/2014 Age-related macular degeneration, dry, left eye*10/12/2014 Floaters [H43.399] 10/12/2014 Nuclear sclerotic cataract of right eye [H25.11]10/12/2014 PSC (posterior subcapsular cataract), left [IMO*10/12/2014 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] 10/12/2014 Sinus bradycardia [R00.1] 12/09/2017 H/O aortic aneurysm repair [Z98.890, Z86.79] 02/18/2019 History of colonic polyps [Z86.0100] 12/23/2023 Encounter Status:Closed by KAYE MARIE on 02/21/24 [facility] CNOVon 01-22-2024 CNOV Office Visit ([facility] ) -------- CARLITO CHATTERJEE ([id number]) 1940 M Date Time Provider Department 01/22/24 11:30 AM Fritz ARCHULETA [facility] During your visit today, we recorded the following information about you: Temperature Pulse Respiration Blood pressure 97.5 degrees 56/minute 20/minute 138/51 Weight Height 79.2 kg 1.765 m Fritz Archuleta MD 01/22/2024 2:31 PM Signed COLORECTAL SURGERY New Patient Visit January 22, 2024 Chief Complaint: distal transverse colon polypoid lesion History of Present Illness: Carlito Chatterjee is a 84 year old year old male being seen in clinic at the request of Dr. Manuel Ramsay to discuss need for ESD/EMR regarding a 15 mm polypoid lesion was found in the distal transverse colon on recent colonoscopy. COLONOSCOPY dated 12/23/2023: Findings: - The perianal and digital rectal examinations were normal. - A 15 mm polypoid lesion was found in the distal transverse colon. The lesion was sessile. No bleeding was present. This was biopsied with a cold forceps for histology. This has been marked before and will need a saline lift to remove - Non-bleeding internal hemorrhoids were found during retroflexion. The hemorrhoids were moderate and small. Impression: - Preparation of the colon was fair. - Likely benign polypoid lesion in the distal transverse colon. Biopsied. - Non-bleeding internal hemorrhoids. Office Visit dated 12/05/2023 completed by Eva Ash APRN.EARLY CHILDHOOD ASSISTANT (General Surgery): Assessment IMPRESSION: history of colonic polyps, screen for colon cancer, BRBPR PLAN: I have reviewed my findings with the surgeon. Will plan for lower endoscopy. We discussed the risks and benefits of the planned endoscopy. I have informed the patient that complications can occur including failure to complete the endoscopy and perforation. Carlito had the opportunity to ask questions concerning the planned endoscopy. My staff has also explained the procedure to the patient in understandable terms and has given the patient printed material concerning the procedure. Carlito freely consents to surgery. I plan to use Golytely bowel preparation Will reach out to Dr. Whitaker about holding Plavix. I have explained to the patient the difference between IV conscious sedation and MAC anesthesia - and I have offered either, according to the patient's wishes. I have explained that with IV conscious sedation there is no anesthesia provider available and therefore there is a limitation of the amount of IV medications that can be given and that the patient may wake up in the middle of the procedure and/or experience pain/discomfort during the procedure. Further discussion was done and the patient was given the opportunity to ask questions and all questions were answered. Carlito chooses IV conscious sedation Carlito was counseled that if there are changes in his/her medical condition, to let the office know if surgery should proceed. If there are changes in patient's medical condition from time of this encounter to the day of the procedure that preclude anesthesia, patient may have procedure cancelled for patient's safety. Diagnoses: (Z12.11) Encounter for screening for malignant neoplasm of colon (primary encounter diagnosis) (Z86.010) History of colonic polyps (K62.5) BRBPR (bright red blood per rectum). Office Visit dated 07/03/[address] Lit Whitaker (Cardiology): IMPRESSION: Mr. Chatterjee is a 83 year old male 1. 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 No family history of aortic disease. 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 Stage I elephant trunk using 24 mm hemashield graft. Antegrade cerebral perfusion via innominate artery after reconstruction of arch vessels on 02/04/2014. 2. 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 Residual descending dissection. Stable 4. HTN - monitor BP at home and record. Overall he appears to be doing very well. PLAN AND RECOMMENDATIONS: - Reduce the metoprolol to 50 mg daily due to bradycardia - Continue remainder current medical regimen - Follow up with monitoring of BP with PCP to monitor for up trending of BPs. - Follow-up with Dr Baptiste. - Diet, exercise advised. - Follow up in [address] aorta and with myself and Dr Sinha as directed. CTA ABDOMEN/PELVIS WO/W IVCON dated 07/03/2023: 1. Status post repair of type A dissection with first stage elephant trunk procedure without anastomotic complications. 2. 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 No significant interval change of aortic caliber. 3. 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 [facility] CNPNon 01-22-2024 CNPN Telephone ([employer]) -------- CARLITO CHATTERJEE ([id number]) 1940 M Date Time Provider Department 01/22/24 Fritz ARCHULETA During your visit today, we recorded the following information about you: Ankur Juarez 01/22/2024 4:12 PM Signed Left patient vmail to call back to confirm procedure 06/01 at 230 pm. Allergies As of Date: 01/22/2024 Noted Allergy Reaction CELEBREX (CELECOXIB) 01/29/2014 4 - Hives 9 - Itching Date Reviewed: 01/22/2024 Reviewed by: Jaime Smith, RN - Fully Assessed Prescriptions as of 02/07/2024 - ramipril (ALTACE) 10 mg capsule Take 10 mg by mouth once daily. - tamsulosin ER (FLOMAX) 0.4 mg cap Take 0.4 mg by mouth once daily. 3 or 4 time a week - amLODIPine (NORVASC) 5 mg tablet Take 5 mg by mouth once daily. - metoprolol succinate ER (TOPROL XL) 100 mg Take 100 mg by mouth once daily. - rosuvastatin (CRESTOR) 5 mg tablet Take 10 mg by mouth once daily. - aspirin 81 mg chewable tablet Take 81 mg by mouth once daily. 3 time a week - clopidogrel (PLAVIX) 75 mg tablet Take 1 tablet by mouth once daily. Problem List As Of Date 01/22/2024 Noted Resolved CHRONIC HEPATITIS NOS [K73.9] 08/29/2006 Dissecting aneurysm of thoracic aorta, [place]*01/29/2014 Coronary artery disease with angina pectoris, u*01/29/2014 CKD (chronic kidney disease) stage 2, GFR 60-89*01/29/2014 Encounter for screening for malignant neoplasm *02/03/2014 Hyperglycemia [R73.9] 02/04/2014 Fluid overload [E87.70] 02/05/2014 Atelectasis [J98.11] 02/05/2014 Post-operative pain [G89.18] 02/05/2014 Confusion [R41.0] 02/06/2014 DM (diabetes mellitus) (HCC) [E11.9] 02/07/2014 Hypertension [I10] 02/07/2014 A-fib (HCC) [I48.91] 02/07/2014 07/04/2023 SUMMARY [V999.95] 02/07/2014 Visit for wound check [Z51.89] 03/29/2014 Age-related macular degeneration, dry, left eye*10/12/2014 Floaters [H43.399] 10/12/2014 Nuclear sclerotic cataract of right eye [H25.11]10/12/2014 PSC (posterior subcapsular cataract), left [IMO*10/12/2014 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 Author Type: Physician Type: H&P Filed: 01/22/2024 14:31 Note Text: COLORECTAL SURGERY New Patient Visit January 22, 2024 Chief Complaint: distal transverse colon polypoid lesion History of Present Illness: Carlito Chatterjee is a 84 year old year old male being seen in clinic at the request of Dr. Manuel Ramsay to discuss need for ESD/EMR regarding a 15 mm polypoid lesion was found in the distal transverse colon on recent colonoscopy. COLONOSCOPY dated 12/23/2023: Findings: - The perianal and digital rectal examinations were normal. - A 15 mm polypoid lesion was found in the distal transverse colon. The lesion was sessile. No bleeding was present. This was biopsied with a cold forceps for histology. This has been marked before and will need a saline lift to remove - Non-bleeding internal hemorrhoids were found during retroflexion. The hemorrhoids were moderate and small. Impression: - Preparation of the colon was fair. - Likely benign polypoid lesion in the distal transverse colon. Biopsied. - Non-bleeding internal hemorrhoids. Office Visit dated 12/05/2023 completed by Eva Ash APRN.EARLY CHILDHOOD ASSISTANT (General Surgery): Assessment IMPRESSION: history of colonic polyps, screen for colon cancer, BRBPR PLAN: I have reviewed my findings with the surgeon. Will plan for lower endoscopy. We discussed the risks and benefits of the planned endoscopy. I have informed the patient that complications can occur including failure to complete the endoscopy and perforation. Carlito had the opportunity to ask questions concerning the planned endoscopy. My staff has also explained the procedure to the patient in understandable terms and has given the patient printed material concerning the procedure. Carlito freely consents to surgery. I plan to use Golytely bowel preparation Will reach out to Dr. Whitaker about holding Plavix. I have explained to the patient the difference between IV conscious sedation and MAC anesthesia - and I have offered either, according to the patient's wishes. I have explained that with IV conscious sedation there is no anesthesia provider available and therefore there is a limitation of the amount of IV medications that can be given and that the patient may wake up in the middle of the procedure and/or experience pain/discomfort during the procedure. Further discussion was done and the patient was given the opportunity to ask questions and all questions were answered. Carlito chooses IV conscious sedation Carlito was counseled that if there are changes in his/her medical condition, to let the office know if surgery should proceed. If there are changes in patient's medical condition from time of this encounter to the day of the procedure that preclude anesthesia, patient may have procedure cancelled for patient's safety. Diagnoses: (Z12.11) Encounter for screening for malignant neoplasm of colon (primary encounter diagnosis) (Z86.010) History of colonic polyps (K62.5) BRBPR (bright red blood per rectum). Office Visit dated 07/03/[address] Lit Whitaker (Cardiology): IMPRESSION: Mr. Chatterjee is a 83 year old male 1. 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 No family history of aortic disease. 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 Stage I elephant trunk using 24 mm hemashield graft. Antegrade cerebral perfusion via innominate artery after reconstruction of arch vessels on 02/04/2014. 2. 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 Residual descending dissection. Stable 4. HTN - monitor BP at home and record. Overall he appears to be doing very well. PLAN AND RECOMMENDATIONS: - Reduce the metoprolol to 50 mg daily due to bradycardia - Continue remainder current medical regimen - Follow up with monitoring of BP with PCP to monitor for up trending of BPs. - Follow-up with Dr Baptiste. - Diet, exercise advised. - Follow up in [address] aorta and with myself and Dr Sinha as directed. CTA ABDOMEN/PELVIS WO/W IVCON dated 07/03/2023: 1. Status post repair of type A dissection with first stage elephant trunk procedure without anastomotic complications. 2. 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 No significant interval change of aortic caliber. 3. 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 4. 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 PAST MEDICAL HISTORY Diagnosis Date Arrhythmia Coronary artery disease H/O colonoscopy with polypectomy 04/26/2011 multiple adenomatous polyps - 2 yr surveillance recommended Hyperli (more content not included)... [facility] CBC W/Diff, Automatedon 11-0 -2023 Absolute Lymph 1.89 X10 3/uL Normal 0.83-4.51 [facility] Comment on above: Order Comment: Order Date: 01/14/24 Order Info: 0184-1 - CBCD Performed By: #### L 500.4100, L500.4050, L100.0100 #### [facility] [address] [place], [address] Absolute Neut 4.8 X10 3/uL Normal 2.0-7.7 [facility] Comment on above: Order Comment: Order Date: 01/14/24 Order Info: 0184- - CBCD Performed By: #### L 500.4100, [id number], L100.0100 #### [facility] [address] [place], [address] Basophils/100 WBC (Bld) 0.9 % Normal 0-1 [facility] Comment on above: Order Comment: Order Date: 01/14/24 Order Info: 018- - CBCD Performed By: #### L 500.4100, L500.4050, L100.0100 #### [facility] [address] [place], [address] Eosinophils/100 WBC (Bld) 5.0 % Normal 0-5 [facility] Comment on above: Order Comment: Order Date: 01/14/24 Order Info: 018- - CBCD Performed By: #### L 500.4100, [id number], L100.0100 #### [facility] [address] [place], [address] Erythrocyte distribution width (RBC) [Ratio] 12.8 % Normal 11.6-14.6 [facility] Comment on above: Order Comment: Order Date: 01/14/24 Order Info: 0184-1 - CBCD Performed By: #### L 500.4100, L500.4050, L100.0100 #### [facility] [address] [place], [address] Hematocrit (Bld) [Volume fraction] 40.2 % Normal 40-54 [facility] Comment on above: Order Comment: Order Date: 01/14/24 Order Info: 018- - CBCD Performed By: #### L 500.4100, L500.4050, L100.0100 #### [facility] [address] [place], [address] Hemoglobin (Bld) [Mass/Vol] 13.0 g/dL Normal 13.0-16.5 [facility] Comment on above: Order Comment: Order Date: 01/14/24 Order Info: 018- - CBCD Performed By: #### L 500.4100, L500.4050, L100.0100 #### [facility] [address] [place], [address] IG% 1.500 High 0.0-0.9 [facility] Comment on above: Order Comment: Order Date: 01/14/24 Order Info: 018- - CBCD Result Comment: IG% - Immature Granulocytes (promyelocytes, myelocytes and metamyelocytes) > 1% indicates that a LEFT SHIFT is Present. Performed By: #### L 500.4100, L500.4050, L100.0100 #### [facility] [address] [place], [address] Lymphocytes/100 WBC (Bld) 24.0 % Normal 19-41 [facility] Comment on above: Order Comment: Order Date: 01/14/24 Order Info: 018- - CBCD Performed By: #### L 500.4100, [id number], L100.0100 #### [facility] [address] [place], [address] MCH (RBC) [Entitic mass] 29.9 pg Normal 27.0-32.0 [facility] Comment on above: Order Comment: Order Date: 01/14/24 Order Info: 018- - CBCD Performed By: #### L 500.4100, [id number], L100.0100 #### [facility] [address] [place], [address] MCHC (RBC) [Mass/Vol] 32.3 g/dL Normal 32-36 [facility] Comment on above: Order Comment: Order Date: 01/14/24 Order Info: 0184-1 - CBCD Performed By: #### L 500.4100, [id number], L100.0100 #### [facility] [address] [place], [address] MCV (RBC) [Entitic vol] 92.4 fL Normal 80-94 [facility] Comment on above: Order Comment: Order Date: 01/14/24 Order Info: 0184-1 - CBCD Performed By: #### L 500.4100, L500.4050, L100.0100 #### [facility] [address] [place], [address] Monocytes/100 WBC (Bld) 7.3 % Normal 0-10 [facility] Comment on above: Order Comment: Order Date: 01/14/24 Order Info: 0184-1 - CBCD Performed By: #### L 500.4100, [id number], L100.0100 #### [facility] [address] [place], [address] Neutrophils/100 WBC (Bld) 61.3 % Normal 47-70 [facility] Comment on above: Order Comment: Order Date: 01/14/24 Order Info: 0184-1 - CBCD Performed By: #### L 500.4100, [id number], L100.0100 #### [facility] [address] [place], [address] Nucleated RBC (Bld) [#/Vol] 0 10*3/uL Normal 0-5 [facility] Comment on above: Order Comment: Order Date: 01/14/24 Order Info: 0184-1 - CBCD Performed By: #### L 500.4100, [id number], L100.0100 #### [facility] [address] [place], [address] Platelet mean volume (Bld) [Entitic vol] 10.3 fL Normal 6.2-12.0 [facility] Comment on above: Order Comment: Order Date: 01/14/24 Order Info: 018-1 - CBCD Performed By: #### L 500.4100, L500.4050, L100.0100 #### [facility] [address] [place], [address] Platelets (Bld) [#/Vol] 176 10*3/uL Normal 150-450 [facility] Comment on above: Order Comment: Order Date: 01/14/24 Order Info: 018- - CBCD Performed By: #### L 500.4100, L500.4050, L100.0100 #### [facility] [address] [place], [address] RBC (Bld) [#/Vol] 4.35 10*6/uL Low 4.6-6.2 [facility] Comment on above: Order Comment: Order Date: 01/14/24 Order Info: 018- - CBCD Performed By: #### L 500.4100, [id number], L100.0100 #### [facility] [address] [place], [address] RDW SD 43.7 fl Normal 35.1-43.9 [facility] Comment on above: Order Comment: Order Date: 01/14/24 Order Info: 018-1 - CBCD Performed By: #### L 500.4100, [id number], L100.0100 #### [facility] [address] [place], [address] WBC (Bld) [#/Vol] 7.9 10*3/uL Normal 4.4-11.0 [facility] Comment on above: Order Comment: Order Date: 01/14/24 Order Info: 0184-1 - CBCD Performed By: #### L 500.4100, L500.4050, L100.0100 #### [facility] [address] [place], [address] Comprehensive Metabolic Prof ilon 01-17-2024 Albumin [Mass/Vol] 3.7 g/dL Normal 3.2-5.0 [facility] Comment on above: Order Comment: Order Date: 01/14/24 Order Info: 0786-1 - CMP Order Info: [id number] - LIPID Performed By: #### L 500.4100, L500.4050, L100.0100 #### [facility] [address] [place], [address] Albumin/Globulin [Mass ratio] 1.3 {ratio} Normal 0.9-2.4 [facility] Comment on above: Order Comment: Order Date: 01/14/24 Order Info: 0786-1 - CMP Order Info: [id number] - LIPID Performed By: #### L 500.4100, L500.4050, L100.0100 #### [facility] [address] [place], [address] ALK P 42 U/L Low 45-117 [facility] Comment on above: Order Comment: Order Date: 01/14/24 Order Info: 0786-1 - CMP Order Info: [id number] - LIPID Performed By: #### L 500.4100, L500.4050, L100.0100 #### [facility] [address] [place], [address] ALT [Catalytic activity/Vol] 22 U/L Normal 16-61 [facility] Comment on above: Order Comment: Order Date: 01/14/24 Order Info: 0786-1 - CMP Order Info: [id number] - LIPID Performed By: #### L 500.4100, L500.4050, L100.0100 #### [facility] [address] [place], [address] AST [Catalytic activity/Vol] 19 U/L Normal 15-37 [facility] Comment on above: Order Comment: Order Date: 01/14/24 Order Info: 07 - CMP Order Info: [id number] - LIPID Performed By: #### L 500.4100, L500.4050, L100.0100 #### [facility] [address] [place], [address] Bilirubin [Mass/Vol] 0.40 mg/dL Normal 0.20-1.00 [facility] Comment on above: Order Comment: Order Date: 01/14/24 Order Info: [id number] - CMP Order Info: [id number] - LIPID Result Comment: For patients on eltrombopag therapy, use of Dimension [place] TBIL is not recommended. Performed By: #### L 500.4100, L500.4050, L100.0100 #### [facility] [address] [place], [address] BUN/CRE 17.7 RATIO Normal 10-20 [facility] Comment on above: Order Comment: Order Date: 01/14/24 Order Info: 07 - CMP Order Info: [id number] - LIPID Performed By: #### L 500.4100, L500.4050, L100.0100 #### [facility] [address] [place], [address] CA,Total 9.1 mg/dL Normal 8.5-10.1 [facility] Comment on above: Order Comment: Order Date: 01/14/24 Order Info: 0786 - CMP Order Info: [id number] - LIPID Performed By: #### L 500.4100, L500.4050, L100.0100 #### [facility] [address] [place], [address] Chloride [Moles/Vol] 110 mmol/L High 98-107 [facility] Comment on above: Order Comment: Order Date: 01/14/24 Order Info: 0786- - CMP Order Info: [id number] - LIPID Performed By: #### L 500.4100, L500.4050, L100.0100 #### [facility] [address] [place], [address] CO2 [Moles/Vol] 29.0 mmol/L Normal 21.0-32.0 [facility] Comment on above: Order Comment: Order Date: 01/14/24 Order Info: 07 - CMP Order Info: [id number] - LIPID Performed By: #### L 500.4100, L500.4050, L100.0100 #### [facility] [address] [place], [address] Creatinine [Mass/Vol] 1.30 mg/dL Normal 0.70-1.30 [facility] Comment on above: Order Comment: Order Date: 01/14/24 Order Info: 07 - CMP Order Info: [id number] - LIPID Result Comment: The validity of the calculated GFR GFRAA in patients over 70 years has not been determined. Clinical correlation is essential. Performed By: #### L 500.4100, L500.4050, L100.0100 #### [facility] [address] [place], [address] EST GFR - AA 68 mL/min Normal >60 [facility] Comment on above: Order Comment: Order Date: 01/14/24 Order Info: 07- - CMP Order Info: [id number] - LIPID Result Comment: Afri can Italian GFR Calc Performed By: #### L 500.4100, L500.4050, L100.0100 #### [facility] [address] [place], [address] GAP 3 Low 5-15 [facility] Comment on above: Order Comment: Order Date: 01/14/24 Order Info: 0786- - CMP Order Info: [id number] - LIPID Performed By: #### L 500.4100, L500.4050, L100.0100 #### [facility] [address] [place], [address] GFR/1.73 sq M.predicted among non-blacks MDRD (S/P/Bld) [Vol rate/Area] 56 mL/min/{1.73_m2} Low >60 [facility] Comment on above: Order Comment: Order Date: 01/14/24 Order Info: 0786-1 - CMP Order Info: [id number] - LIPID Result Comment: Non- GFR Calc Performed By: #### L 500.4100, L500.4050, L100.0100 #### [facility] [address] [place], [address] Globulin (S) [Mass/Vol] 2.8 g/dL Normal 2.2-4.2 [facility] Comment on above: Order Comment: Order Date: 01/14/24 Order Info: [id number] - CMP Order Info: [id number] - LIPID Performed By: #### L 500.4100, L500.4050, L100.0100 #### [facility] Laboratory [address] [place], [address] Glucose [Mass/Vol] 104 mg/dL Normal 74-106 [facility] Comment on above: Order Comment: Order Date: 01/14/24 Order Info: [id number] - CMP Order Info: [id number] - LIPID Result Comment: Fast ing Glucose result from 100 to 125 mg/dL suggests IMPAIRED HOMEOSTASIS per A.D.A. criteria. Performed By: #### L 500.4100, L500.4050, L100.0100 #### [facility] [address] [place], [address] Potassium [Moles/Vol] 4.6 mmol/L Normal 3.5-5.1 [facility] Comment on above: Order Comment: Order Date: 01/14/24 Order Info: [id number] - CMP Order Info: [id number] - LIPID Performed By: #### L 500.4100, L500.4050, L100.0100 #### [facility] [address] [place], [address] Sodium [Moles/Vol] 142 mmol/L Normal 136-145 [facility] Comment on above: Order Comment: Order Date: 01/14/24 Order Info: [id number] - CMP Order Info: [id number] - LIPID Performed By: #### L 500.4100, L500.4050, L100.0100 #### [facility] [address] [place], [address] T PROT 6.5 g/dL Normal 6.4-8.2 [facility] Comment on above: Order Comment: Order Date: 01/14/24 Order Info: 0786- - CMP Order Info: [id number] - LIPID Performed By: #### L 500.4100, L500.4050, L100.0100 #### [facility] [address] [place], [address] Urea nitrogen [Mass/Vol] 23 mg/dL High 7-18 [facility] Comment on above: Order Comment: Order Date: 01/14/24 Order Info: [id number] - CMP Order Info: [id number] - LIPID Performed By: #### L 500.4100, L500.4050, L100.0100 #### [facility] [address] [place], [address] Lipid Profileon 01-17-2024 Cholesterol [Mass/Vol] 139 mg/dL Normal 200 [facility] Comment on above: Order Comment: Order Date: 01/14/24 Order Info: [id number] - CMP Order Info: [id number] - LIPID Result Comment: <200 mg/dL Desirable 200-240 mg/dL Borderline >240 mg/dL High Risk Performed By: #### L 500.4100, L500.4050, L100.0100 #### [facility] [address] [place], [address] Cholesterol in HDL [Mass/Vol] 45 mg/dL Normal [facility] Comment on above: Order Comment: Order Date: 01/14/24 Order Info: [id number] - CMP Order Info: [id number] - LIPID Result Comment: The drugs N-Acetylcysteine and Metamizole may falsely depress this assay. Reference Range HDL <40 mg/dL Low HDL Cholesterol HDL >or= 60 mg/dL High HDL Cholesterol Performed By: #### L 500.4100, L500.4050, L100.0100 #### [facility] [address] [place], [address] Cholesterol in LDL [Mass/Vol] 75 mg/dL Normal 0-130 [facility] Comment on above: Order Comment: Order Date: 01/14/24 Order Info: 0786- - CMP Order Info: [id number] - LIPID Performed By: #### L 500.4100, L500.4050, L100.0100 #### [facility] [address] [place], [address] Cholesterol in VLDL [Mass/Vol] 19 mg/dL Normal 5-40 [facility] Comment on above: Order Comment: Order Date: 01/14/24 Order Info: [id number] - CMP Order Info: [id number] - LIPID Performed By: #### L 500.4100, L500.4050, L100.0100 #### [facility] [address] [place], [address] Triglyceride [Mass/Vol] 95 mg/dL Normal [facility] Comment on above: Order Comment: Order Date: 01/14/24 Order Info: 0786- - CMP Order Info: [id number] - LIPID Result Comment: The drugs N-Acetylcysteine and Metamizole may falsely depress this assay. Serum Triglycerides Reference Interval Normal <150 mg/dL Borderline high 150 - 199 mg/dL High 200 - 499 mg/dL Very High > or = 500 mg/dL Performed By: #### L 500.4100, L500.4050, L100.0100 #### [facility] [address] [place], [address] Urinalysis, Routine (Dipstic k)on 01-17-2024 BILIRUBIN URINE Negative Normal Negative [facility] Comment on above: Order Comment: Urine , Random Performed By: #### L 400.2010 #### [facility] [address] [place], [address] Clarity (U) Clear Normal Clear [facility] Comment on above: Order Comment: Urine , Random Performed By: #### L 400.2010 #### [facility] [address] [place], [address] Color (U) Yellow Normal Yellow [facility] Comment on above: Order Comment: Urine , Random Performed By: #### L 400.2010 #### [facility] [address] [place], [address] GLUCOSE, UR Normal Normal Normal [facility] Comment on above: Order Comment: Urine , Random Performed By: #### L 400.2010 #### [facility] [address] [place], [address] KETONE UR Negative Normal Negative [facility] Comment on above: Order Comment: Urine , Random Performed By: #### L 400.2010 #### [facility] [address] [place], [address] LEUK ESTERASE 25 /ul Abnormal Negative [facility] Comment on above: Order Comment: Urine , Random Performed By: #### L 400.2010 #### [facility] [address] [place], [address] Nitrite Ql (U) Negative Normal Negative [facility] Comment on above: Order Comment: Urine , Random Performed By: #### L 400.2010 #### [facility] [address] [place], [address] OCCULT BLOOD-UR 25 /ul Abnormal Negative [facility] Comment on above: Order Comment: Urine , Random Performed By: #### L 400.2010 #### [facility] [address] [place], [address] pH UR 5.0 Normal 5.0 - 8.0 [facility] Comment on above: Order Comment: Urine , Random Performed By: #### L 400.2010 #### [facility] [address] [place], [address] PROT DIPSTX 30 mg/dl Abnormal Negative [facility] Comment on above: Order Comment: Urine , Random Performed By: #### L 400.2010 #### [facility] [address] [place], [address] SP.GR. DIPSTX 1.025 Normal 1.002-1.030 [facility] Comment on above: Order Comment: Urine , Random Performed By: #### L 400.2010 #### [facility] [address] [place], [address] UROBILI 1 mg/dl Abnormal Normal [facility] Comment on above: Order Comment: Urine , Random Performed By: #### L 400.2010 #### [facility] [address] [place], [address] SURGICAL PATHOLOGYOrdered By : Alfred Hoover on 12-24-2023 Case Report Surgical Pathology Report Case: [id number] Authorizing Provider: Manuel Ramsay MD Collected: 12/23/2023 08:06 AM Ordering Location: Ambulatory Surgery Received: 12/23/2023 11:31 AM Pathologist: Alfred Hoover MD Specimen: Colon, Transverse, Biopsy, Bx of distal transverse colon polyp [facility] Work Phone: FINAL DIAGNOSIS q1uagZJdPMKxfFZxYNfw Mlxh xwFeQVRakIJlB8JxqwnuPYxg TK2gIE9eiTuomUZtvVAlLGUw UrHpd2dci966qOSgi3gkRPMB ydsriCe5qXanF73fs4F3Qfol Y43jcAVzVSD1DFWxNIYxtAUc EXRlANX3MWUrhWJsG4utWPYi DE0rhynyQFlrKVeeWDVxbIA6 SXMmeQXbL7LvVSOsGZgzYQQn yxm2EhLcRa8jlFAvuRshPNum YXJkXHBsYWluXGZzMjAgRGlz aLBmKYJdUX1uyoXxh5AmB64z v86liM1taIUxAUDuu9HvxCpp wPJaSG1yFcZpF36nadIdNP8n IHRyYWRpdGlvbmFsIHNlcnJh sAMxXDDpWF5eiRRgPGYxdn3= [facility] Work Phone: Gross Description m4oqxQDuSRValSOSKST8 MDFc FO4egSgiiTm8xCdkNTEhfwV5 bZIrWInxa8wlBWM4u1spkkMD SaacKIRpJN6xEIbcNITuWH1n ZmUwXGRlZmYxXHBhcGVydzEy GoZfVKCrlUFyoPK9SYVcZL5u kuxkPKxbBJvgCXRhtnD6AWEh uQMkK4RmSFUkJA9syuunKVH6 LFRFFsglVn2mvJUoxUqsAoKp WqOoJYVpXEDpLOCms7znqwFQ ujxinUg0zJ8ERWCuD6QcZW3I r3hkJKZbzRLkVLH8AUfok0pq IDqiSAK1QMSvCYUyRQMlLS6E VbBbDKp8TMX8Har7RzA5EPd6 NXDUGECrHVA5NRA8OTEzHDq3 OTkgXFxuaCBcXHQgMSBcXGZs RDtfnzU1o2ztSATjlUAqZBZ9 PVtvv0nlSQwtULP9JDUuJrZq TMDlNE5EVdXpBNv1PAB2Zqa5 RwS1ACg3WDEQAwOgRqEhDRbo EFE4UtjlALi2TJu6SDpJGcHz KejeQQAcWWKwOEC3ABRiMQJq XHQgMiBcXHNzIDMgXFxmbCBc ZN6lqJviNTQzFV3QVCIhIUbb RWDiJtLxOV6qV18it80pKXYc FD9ukfZkj5TjRRNjf1CnxDtp dHJjaFxwYXIgDQpccGFyZCAN ClxwbGFpblxsdHJjaFxmczIy UROzoMNIWIW6NQ6kNBAQNhsn dHJwYXIgDQpcZnMyMCBSZWNl yMHeWROkmhDxs1BsFOhsdaJs trWxgFFekYsdzMJlwQmvR8Ew LS7uQGLevdyfz33qcOU5sRUq lVAiBShlbnMaKISrsccusK8s KH81NCblIR98XTxlRT5iDYTc ZsYWy9PnbSu5YIS4Dl5vsPAo ULHgylDoovTkM4Yrq6V7hOSx EDfqYHRcIEihdROuNU3QFoVW AE0afI1uOVClMhnqNqDxNILx UQy1JSOEJBdlUSEqPZenzAHq JW8HEUOcQkTfYANrQ5hnRIRq ZN0PV1Iyz3PvRZpsbJvwSPJd j11lvFRzLb8fuGUtZJY8TDUm ZXZlbGFuZCBDbGluaWMsIDk1 KXXqJWWskZudIFQ1YW3yAZCp HNJjrBWmMMriF1adXEToKYTM IrppjEjoRyRmcPQjEdI7AFPm cRFdGSM5ZZ4daJytUELfC7Gm U1WlohQ1EHOreyBJVtxgPZNc AO1QGWChKlXzLKk4 [facility] Work Phone: Performing Lab b0xwaKWgIZDqgUIqUlCj MDAw ZEAfm0pvVMObcHSbNgXySyKa BtPrUglkqWPeEYEwNaLzf9hm g549vXLqk4kcWQGcEkT3eDPb CDRqfAMiN570JRLoTEgca7at b4QkDAYxaNPkr0K7NFNVobjs kEp2iIalL22qt8D8NbpxX6ke ONFvFGRvJ0LxTL8pSHDqWyg5 PMO4ZHX6JOJpSJEiJ8GaTT7d CDVxyQDfNSm3x6qczYdaNMAy BWZ4f9wiUVzhzrJjVT9gub4b eHa6d0pqtrBzXDNrNZWzfZUM KLEvW8QiyKipDi2vuEj1lCoa YmbmOFD9Mhe7KV9njk94hml0 qJixVXNqknrwSpH5LLhrPYDp twovZNg6ENxlMJYovJH2POQf lWAeX4JkVZsgMO9glci0XKU4 OCkzGSQhYjX4UNPwtLYpVKTp sMvfPSflz834GCF6HpBdKY2h R9Jek1U8fB4piCNfBHSpjIWw JpVoWMKtsv6yoEWoFBpfd0Vi WMB3teN8cKZzuZCqSDZdWF19 Xwjps6OgSbevi9NlJ08slBX0 PPkum3dnPI9oFpS4mqBsLYks t8gqbR6dUbT4DOzkYF0jPJ6m HMMdfW0zwgbaXCFqYbBclsjs YVMpyXuvfbUaAo8wcIigQDM8 EGnxI3qvtZ5zHzQ6GVeqN2fx rC7bEHw6HGduzCS5KPLpsK4g AT0jpcjrg3dvFZydYBrqJYTt ljD8ozAtIRPmgANoA0EwzD8x VEMdEE9fuyhcv2biQFZ2UNuu NWQeONO6PsMnGTKfu1Zskbr0 NoIjg6MwwOOyPMpuH67qg814 DEUgefFgH4gxjKYfpggyfWAf freiKOznozN5FKTxINVoBVda XGYxXGZzMjBcbGFuZzEwMzNc aGljaFxmMVxkYmNoXGYxXGxv B4nrJpSfCoBcZDRZdOHobn4k zGmoPKknmWBwqVSvaOM0yY4r YAWehzYxoi0lKRNhyQUYeLO3 WSgqnuGzU9dmnfsgTYY9LBNr QCL3B1opOOMXclJkROMqLTTq vYWyOSBFXPZ3VAT4EYZsHWPC CMQcKJU0ZRL1FGKjVHNcsVPn XHBhclxwYXJkXHBsYWluXGYw QPHbVqKirLhkbB7mDkLpJyMl MKwiFP7eRIToU2bonRIpSQHp IINcO4srKkAtgN5jsHjqZFkq ZjJcZnMyMFxsdHJjaCBMYWJv ftF1s6E4AErajGFcyayiZDyx faAxRMuuytdaNQBuIKkoT3ap ZuNuSPRxhSdyAIcrt0AkUGYz MRVbUeWxCLftXGA3c6A4JFgm dOAnthWPNqQSNU3etOBvettj ZK5GEacraXDywiytPKfrygCq ZEfuxtqwBNTrOLqoF4hhKlJg IBKseBmbHThfk6GxPPAnBQEk MjJccGFyfQ== [facility] Work Phone: [facility] Work Phone: [phone] 12-23-2023 [id number] HNO ID: [id number] Author: MENDY FLOREZ RN Service: ? Author Type: Registered Nurse Type: [id number] Filed: 12/23/2023 08:43 Note Text: The patient received a copy of Colonoscopy discharge instructions that contain information for how to contact the physician who performed the procedure and when to seek medical care.Mendy Florez RN [facility] Colonoscopyon 12-23-2023 Colonoscopy [place] [facility] Gastrointestinal Endoscopy Patient Name: Carlito Chatterjee Procedure Date: 12/23/2023 7:35 AM Date of : 1940 Admit Type: Outpatient Age: 83 Gender: Male Note Status: Finalized Procedure: Colonoscopy Indications: High risk colon cancer surveillance: Personal history of colonic polyps Providers: Manuel Ramsay MD Patient Profile: This is an 83 year old male. Refer to note in patient chart for documentation of history and physical. Last Colonoscopy: October 2016. Referring Physician: Eva Ash (Referring MD) Medicines: Fentanyl 100 micrograms IV, Midazolam 5 mg IV Complications: No immediate complications. Estimated blood loss: Minimal. Requesting Provider: Procedure: Pre-Anesthesia Assessment: - Prior to the procedure, a History and Physical was performed, and patient medications and allergies were reviewed. The patient's tolerance of previous anesthesia was also reviewed. The risks and benefits of the procedure and the sedation options and risks were discussed with the patient. All questions were answered, and informed consent was obtained. Prior Anticoagulants: The patient has taken Plavix (clopidogrel), last dose was 7 days prior to procedure. ASA Grade Assessment: III - A patient with severe systemic disease. After reviewing the risks and benefits, the patient was deemed in satisfactory condition to undergo the procedure. After I obtained informed consent, the scope was passed under direct vision. Throughout the procedure, the patient's blood pressure, pulse, and oxygen saturations were monitored continuously. The Colonoscope was introduced through the anus and advanced to the cecum, identified by appendiceal orifice and ileocecal valve. The colonoscopy was performed without difficulty. The patient tolerated the procedure well. The quality of the bowel preparation was fair. The ileocecal valve, appendiceal orifice, and rectum were photographed. Moderate Sedation: The administration of moderate sedation was initiated at 07:49 AM. Moderate (conscious) sedation was personally administered by the endoscopist. The following parameters were monitored: oxygen saturation, heart rate, blood pressure, respiratory rate, EKG, adequacy of pulmonary ventilation, and response to care. Total physician intraservice time was 18 minutes. Findings: The perianal and digital rectal examinations were normal. A 15 mm polypoid lesion was found in the distal transverse colon. The lesion was sessile. No bleeding was present. This was biopsied with a cold forceps for histology. This has been marked before and will need a saline lift to remove Non-bleeding internal hemorrhoids were found during retroflexion. The hemorrhoids were moderate and small. Impression: - Preparation of the colon was fair. - Likely benign polypoid lesion in the distal transverse colon. Biopsied. - Non-bleeding internal hemorrhoids. Recommendation: - Patient has a contact number available for emergencies. The signs and symptoms of potential delayed complications were discussed with the patient. Return to normal activities tomorrow. Written discharge instructions were provided to the patient. - Resume previous diet. - Continue present medications. - Await pathology results. - Repeat colonoscopy at appointment to be scheduled for retreatment. - Refer to a colo-rectal surgeon at appointment to be scheduled. - Resume Plavix (clopidogrel) tomorrow at prior dose. Procedure Code(s): --- Professional --- 64870, Colonoscopy, flexible; with biopsy, single or multiple G0500, Moderate sedation services provided by the same physician or other qualified health weekend caregiver performing a gastrointestinal endoscopic service that sedation supports, requiring the presence of an independent trained observer to assist in the monitoring of the patient's level of consciousness and physiological status; initial 15 minutes of intra-service time; patient age 5 years or older (additional time may be reported with 29631, as appropriate) Diagnosis Code(s): --- Professional --- Z12.11, Encounter for screening for malignant neoplasm of colon Z86.010, Personal history of colonic polyps K64.8, Other hemorrhoids D49.0, Neoplasm of unspecified behavior of digestive system CPT copyright 2020 [employer]. All rights reserved. The codes documented in this report are preliminary and upon fitter mechanic review may be revised to meet current compliance requirements. Attending Participation: I personally performed the entire procedure. Scope In: 7:51:11 AM Scope Out: 8:08:59 AM MD Manuel Rushing MD 12/23/2023 8:14:14 AM This report has been signed electronically by Manuel Ramsay MD Number of Addenda: 0 Note Initiated On: 12/23/2023 7:35 AM Estimated Blood Loss: Estimated blood loss was minimal. Normal [facility] Colonoscopy Study observatio non 12-23-2023 [place] [facility] Gastrointestinal Endoscopy Patient Name: Carlito Chatterjee Procedure Date: 12/23/2023 7:35 AM Date of : 1940 Admit Type: Outpatient Age: 83 Gender: Male Note Status: Finalized Procedure: Colonoscopy Indications: High risk colon cancer surveillance: Personal history of colonic polyps Providers: Manuel Ramsay MD Patient Profile: This is an 83 year old male. Refer to note in patient chart for documentation of history and physical. Last Colonoscopy: October 2016. Referring Physician: Eva Ash (Referring MD) Medicines: Fentanyl 100 micrograms IV, Midazolam 5 mg IV Complications: No immediate complications. Estimated blood loss: Minimal. Requesting Provider: Procedure: Pre-Anesthesia Assessment: - Prior to the procedure, a History and Physical was performed, and patient medications and allergies were reviewed. The patient's tolerance of previous anesthesia was also reviewed. The risks and benefits of the procedure and the sedation options and risks were discussed with the patient. All questions were answered, and informed consent was obtained. Prior Anticoagulants: The patient has taken Plavix (clopidogrel), last dose was 7 days prior to procedure. ASA Grade Assessment: III - A patient with severe systemic disease. After reviewing the risks and benefits, the patient was deemed in satisfactory condition to undergo the procedure. After I obtained informed consent, the scope was passed under direct vision. Throughout the procedure, the patient's blood pressure, pulse, and oxygen saturations were monitored continuously. The Colonoscope was introduced through the anus and advanced to the cecum, identified by appendiceal orifice and ileocecal valve. The colonoscopy was performed without difficulty. The patient tolerated the procedure well. The quality of the bowel preparation was fair. The ileocecal valve, appendiceal orifice, and rectum were photographed. Moderate Sedation: The administration of moderate sedation was initiated at 07:49 AM. Moderate (conscious) sedation was personally administered by the endoscopist. The following parameters were monitored: oxygen saturation, heart rate, blood pressure, respiratory rate, EKG, adequacy of pulmonary ventilation, and response to care. Total physician intraservice time was 18 minutes. Findings: The perianal and digital rectal examinations were normal. A 15 mm polypoid lesion was found in the distal transverse colon. The lesion was sessile. No bleeding was present. This was biopsied with a cold forceps for histology. This has been marked before and will need a saline lift to remove Non-bleeding internal hemorrhoids were found during retroflexion. The hemorrhoids were moderate and small. Impression: - Preparation of the colon was fair. - Likely benign polypoid lesion in the distal transverse colon. Biopsied. - Non-bleeding internal hemorrhoids. Recommendation: - Patient has a contact number available for emergencies. The signs and symptoms of potential delayed complications were discussed with the patient. Return to normal activities tomorrow. Written discharge instructions were provided to the patient. - Resume previous diet. - Continue present medications. - Await pathology results. - Repeat colonoscopy at appointment to be scheduled for retreatment. - Refer to a colo-rectal surgeon at appointment to be scheduled. - Resume Plavix (clopidogrel) tomorrow at prior dose. Procedure Code(s): --- Professional --- 38621, Colonoscopy, flexible; with biopsy, single or multiple G0500, Moderate sedation services provided by the same physician or ot (more content not included)... [employer] [facility] Radiology Study observation (narrative) [facility] HISTORY PHYSICALon HISTORY PHYSICAL HNO ID: [id number] Author: MANUEL RAMSAY MD Service: General Surgery Author Type: Physician Type: H&P Filed: 12/23/2023 07:31 Note Text: HISTORY AND PHYSICAL Carlito Chatterjee : 1940 REFERRING PHYSICIAN: No referring provider defined for this encounter. CHIEF COMPLAINT: Patient presents with: Consult: Colonoscopy consultation. HPI: Carlito is a 83 year old male referred for endoscopy. Carlito notes history of colonic polyps. Carlito denies abdominal pain.. Carlito denies diarrhea. Refers his stools are soft in consistency. Carlito denies constipation. Carlito denies a change in bowel habits. Carlito denies melena. Carlito notes bright red blood per rectum. Starting Saturday pt has noticed BRBPR in the toilet and possibly scant amount on the toilet paper. Denies black tarry stools, or blood in the stool. This episodes of blood are inconsistent, will happen then go a day without any. Denies straining, pain with BM or itching. Carlito denies hemorrhoids. Carlito denies heartburn. Carlito denies dysphagia. Carlito denies a history of ulcers/ peptic ulcer disease. Denies family history of colon issues. Carlito has a hx of ascending aorta repair in 2013. Last ECHO 06/2023 with EF of 59%. Aorta dilation of 4.1 cm. Follows with [facility] cardiology, no longer needing to see cardiac surgery, only follow with Dr. Whitaker. Denies CP, SOB, palpitations, dizziness, syncope, edema, recent hospitalizations. Currently takes plavix Carlito has undergone prior endoscopy. Last colonoscopy 10/[address] Meier at [facility]. Sedation received: Fentanyl 100 micrograms IV, Midazolam 5 mg IV Impression: - The entire examined colon is normal. - No specimens collected. CURRENT MEDICATIONS Current Outpatient Medications Medication Sig ramipril (ALTACE) 10 mg capsule Take 10 mg by mouth once daily. tamsulosin ER (FLOMAX) 0.4 mg cap Take 0.4 mg by mouth once daily. 3 or 4 time a week amLODIPine (NORVASC) 5 mg tablet Take 5 mg by mouth once daily. metoprolol succinate ER (TOPROL XL) 100 mg Take 100 mg by mouth once daily. rosuvastatin (CRESTOR) 5 mg tablet Take 10 mg by mouth once daily. aspirin 81 mg chewable tablet Take 81 mg by mouth once daily. 3 time a week clopidogrel (PLAVIX) 75 mg tablet Take 1 tablet by mouth once daily. No current facility-administered medications for this visit. ALLERGIES: Celebrex [Celecoxib] PAST MEDICAL HISTORY PAST MEDICAL HISTORY Diagnosis Date Arrhythmia Coronary artery disease H/O colonoscopy with polypectomy 04/26/2011 multiple adenomatous polyps - 2 yr surveillance recommended Hyperlipidemia Impaired glucose tolerance Kidney disease PMH - PAST MEDICAL HISTORY OF hep C - treated in 2015. lab confirms virus irradicated. 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 Aguilar COLONOSCOPY FLX DX W/COLLJ SPEC WHEN PFRMD 10/22/2016 Colonoscopy HERNIA REPAIR HX groin (right) PAST SURGICAL HISTORY OF left knee surgery PAST SURGICAL HISTORY OF 06/09/00 heart cath PAST SURGICAL HISTORY OF 01/2014 new aorta ascending TONSILLECTOMY PRIMARY/SECONDARY Tonsillectomy FAMILY HISTORY FAMILY HISTORY Problem Relation Age of Onset Ischemic Heart Disease Father Ischemic Heart Disease Mother Ischemic Heart Disease Sister 71 Diabetes Brother Stroke Brother SOCIAL HISTORY Social History Tobacco Use Smoking status: Every Day Types: Pipe Smokeless tobacco: Never Tobacco comments: pipe for 50 years /quit started again with pipe Vaping Use Vaping status: Never Used Substance Use Topics Alcohol use: Yes Comment: rarely Drug use: No REVIEW OF SYMPTOMS: REVIEW OF SYSTEMS: General: The patient denies fatigue, denies weight loss, denies weight gain, denies feeling hot, and feelings of cold. Cardiovascular: The patient denies chest pain, denies heart disease, + high blood pressure, + high cholesterol, and denies poor circulation. Respiratory: The patient denies tuberculosis, denies pneumonia, denies frequent cough, denies shortness of breath, and denies coughing up blood. Gastrointestinal: The patient denies difficulty swallowing, denies acid reflux, denies ulcers, denies jaundice/hepatitis, denies gallbladder problems, denies vomiting, denies black or tarry stools, denies hemorrhoids, + bleeding from rectum, denies diverticulitis, denies constipation, denies diarrhea, denies loss of stool control, and denies hernias.. Hematologic: The patient + history of bruising, denies bleeding, and denies anemia. Infections: The patient denies a history of measles and mumps, denies rheumatic fever, and dameon (more content not included)... [facility] NURSING PROGon 12-23-2023 NURSING PROG HNO ID: [id number] Author: MENDY FLOREZ RN Service: ? Author Type: Registered Nurse Type: Nursing Progress Note Filed: 12/23/2023 09:14 Note Text: Arrived in phase II via cart. Left lateral position. Sedated, but responds to verbal stimuli. Color normal; skin warm and dry. Respirations wnl and unlabored. Abdomen soft and with + bowel sounds in quads X 4. Patient resting comfortably. Family at bedside. Dr. Ramsay at bedside to review procedure and recommendations. Mendy Florez RN Normal [facility] SURGICAL PATHOLOGYon 024 CASE REPORT Normal [facility] Comment on above: Order Comment: Speci men Type: BLOOD SPECIMEN Ordering Facility: [facility] Address: [address] [place] [address] Result Comment: Surg ical Pathology Report Case: [id number] Authorizing Provider: Manuel Ramsay MD Collected: 12/23/2023 08:06 AM Ordering Location: Ambulatory Surgery Received: 12/23/2023 11:31 AM Pathologist: Alfred Hoover MD Specimen: Colon, Transverse, Biopsy, Bx of distal transverse colon polyp Performed By: #### 2 4321-2 #### [facility] CLIA [id number] [address] FINAL DIAGNOSIS Normal [facility] Comment on above: Order Comment: Speci men Type: BLOOD SPECIMEN Ordering Facility: [facility] Address: [address] [place] [address] Result Comment: Dist al transverse colon polyp, biopsy: - Fragments of traditional serrated adenoma. Performed By: #### 2 4321-2 #### [facility] CLIA [id number] [address] OF [facility] FINAL PERFORMING LAB Normal [facility] Comment on above: Order Comment: Speci men Type: BLOOD SPECIMEN Ordering Facility: [facility] Address: [address] [place] [address] Result Comment: Diag nostic interpretation performed [facility] [address] [facility] [address] CLIA# [id number] Press Worker Helper: Juma Grimes M.D. Performed By: #### 2 4321-2 #### [facility] CLIA [id number] [address] GROSS DESCRIPTION Normal [facility] Comment on above: Order Comment: Speci men Type: BLOOD SPECIMEN Ordering Facility: [facility] Address: [address] [place] [address] Result Comment: A. C olon, Transverse, Biopsy Received in formalin are multiple pieces of sánchez, soft tissue aggregating to 0.7 x 0.4 x 0.2 cm. Totally submitted in one cassette. [facility] December 23, 2023 10:55 PM Gross examination performed at [facility], [address] [place] [address] Performed By: #### 2 4321-2 #### [facility] CLIA [id number] [address] [place] [address] [facility] CNOVon 12-05-2023 CNOV Office Visit (GENSWS ) -------- CARLITO CHATTERJEE ([id number]) 1940 Date Time Provider Department 12/05/23 9:00 AM EVA ASH During your visit today, we recorded the following information about you: Temperature Pulse Blood pressure Weight 97 degrees 66/minute 130/60 79.3 kg Height 1.753 m Eva Ash APRN.CNP 12/05/2023 9:20 AM Signed HISTORY AND PHYSICAL Carlito Chatterjee : 1940 REFERRING PHYSICIAN: No referring provider defined for this encounter. CHIEF COMPLAINT: Patient presents with: Consult: Colonoscopy consultation. HPI: Carlito is a 83 year old male referred for endoscopy. Carlito notes history of colonic polyps. Carlito denies abdominal pain.. Carlito denies diarrhea. Refers his stools are soft in consistency. Carlito denies constipation. Carlito denies a change in bowel habits. Carlito denies melena. Carlito notes bright red blood per rectum. Starting Saturday pt has noticed BRBPR in the toilet and possibly scant amount on the toilet paper. Denies black tarry stools, or blood in the stool. This episodes of blood are inconsistent, will happen then go a day without any. Denies straining, pain with BM or itching. Carlito denies hemorrhoids. Carlito denies heartburn. Carlito denies dysphagia. Carlito denies a history of ulcers/ peptic ulcer disease. Denies family history of colon issues. Carlito has a hx of ascending aorta repair in 2013. Last ECHO 06/2023 with EF of 59%. Aorta dilation of 4.1 cm. Follows with [facility], no longer needing to see cardiac surgery, only follow with Dr. Whitaker. Denies CP, SOB, palpitations, dizziness, syncope, edema, recent hospitalizations. Currently takes plavix Carlito has undergone prior endoscopy. Last colonoscopy 10/[address] Meier at [facility]. Sedation received: Fentanyl 100 micrograms IV, Midazolam 5 mg IV Impression: - The entire examined colon is normal. - No specimens collected. Current Outpatient Medications Medication Sig ramipril (ALTACE) 10 mg capsule Take 10 mg by mouth once daily. tamsulosin ER (FLOMAX) 0.4 mg cap Take 0.4 mg by mouth once daily. 3 or 4 time a week amLODIPine (NORVASC) 5 mg tablet Take 5 mg by mouth once daily. metoprolol succinate ER (TOPROL XL) 100 mg Take 100 mg by mouth once daily. rosuvastatin (CRESTOR) 5 mg tablet Take 10 mg by mouth once daily. aspirin 81 mg chewable tablet Take 81 mg by mouth once daily. 3 time a week clopidogrel (PLAVIX) 75 mg tablet Take 1 tablet by mouth once daily. No current facility-administered medications for this visit. ALLERGIES: Celebrex [Celecoxib] PAST MEDICAL HISTORY Diagnosis Date Arrhythmia Coronary artery disease H/O colonoscopy with polypectomy 04/26/2011 multiple adenomatous polyps - 2 yr surveillance recommended Hyperlipidemia Impaired glucose tolerance Kidney disease PMH - PAST MEDICAL HISTORY OF hep C - treated in 2015. lab confirms virus irradicated. 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 Aguilar COLONOSCOPY FLX DX W/COLLJ SPEC WHEN PFRMD 10/22/2016 Colonoscopy HERNIA REPAIR HX groin (right) PAST SURGICAL HISTORY OF left knee surgery PAST SURGICAL HISTORY OF 06/09/00 heart cath PAST SURGICAL HISTORY OF 01/2014 new aorta ascending TONSILLECTOMY PRIMARY/SECONDARY Tonsillectomy FAMILY HISTORY Problem Relation Age of Onset Ischemic Heart Disease Father Ischemic Heart Disease Mother Ischemic Heart Disease Sister 71 Diabetes Brother Stroke Brother Social History Tobacco Use Smoking status: Every Day Types: Pipe Smokeless tobacco: Never Tobacco comments: pipe for 50 years /quit started again with pipe Vaping Use Vaping status: Never Used Substance Use Topics Alcohol use: Yes Comment: rarely Drug use: No REVIEW OF SYMPTOMS: REVIEW OF SYSTEMS: General: The patient denies fatigue, denies weight loss, denies weight gain, denies feeling hot, and feelings of cold. Cardiovascular: The patient denies chest pain, denies heart disease, + high blood pressure, + high cholesterol, and denies poor circulation. Respiratory: The patient denies tuberculosis, denies pneumonia, denies frequent cough, denies shortness of breath, and denies coughing up blood. Gastrointestinal: The patient denies difficulty swallowing, denies acid reflux, denies ulcers, denies jaundice/hepatitis, denies gallbladder problems, denies vomiting, denies black or tarry stools, denies hemorrhoids, + bleeding from rectum, denies diverticulitis, denies constipation, denies diarrhea, denies loss of stool control, and denie (more content not included)... [facility] CARLITO CHATTERJEE ([id number]) 1940 M Date Time Provider Department 12/05/23 EVA ASH During your visit today, we recorded the following information about you: Rossi Burgess 12/05/2023 9:43 AM Signed 12/23/2023 colon Per Eva Ash patient to seek cardiac clearance prior to proceeding with scopes in ASC with Dr. Ramsay on 12/23/2023. Patient follows [facility] Dr. Lit Whitaker. Message sent for clearance and to review on how long to hold Plavix Patient aware of all steps needed to be completed prior to proceeding and will be contacted with information about plavix Rossinoni Burgess Senior Design Engineer Rossi Burgess 12/09/2023 8:08 AM Signed Lit Whitaker DO HammRossi oro 5-7 days Previous Messages ----- Message ----- From: Rossi Burgess Sent: 12/06/2023 8:04 AM EDT To: Lit Whitaker DO Subject: RE: CARDIAC CLEARANCE Can you please advise how long patient needs to be off Plavix for the procedure Rossi Burgess Senior Design Engineer ----- Message ----- From: Lit Whitaker DO Sent: 12/05/2023 3:46 PM EDT To: Rossi Burgess Subject: RE: CARDIAC CLEARANCE yes ----- Message ----- From: BurgessRossi Sent: 12/05/2023 9:40 AM EDT To: Lit Whitaker DO Subject: CARDIAC CLEARANCE Dinesh Whitaker , The above patient was seen by Eva Ash and is scheduled for a Colonoscopy with Dr. Dr. Ramsay under Procedural Sedation on 12/23/2023. Please let me know if this patient is optimally cleared from a cardiac standpoint to proceed. Please advise how long patient should hold Plavix. Thank you in advance Rossinoni Burgess Senior Design Engineer Rossi Burgess 12/09/2023 8:08 AM Signed Patient notified Rossi Burgess Senior Design Engineer Allergies As of Date: 12/05/2023 Noted Allergy Reaction CELEBREX (CELECOXIB) 01/29/2014 4 - Hives 9 - Itching Date Reviewed: 12/05/2023 Reviewed by: Eva Ash APRN.EARLY CHILDHOOD ASSISTANT - Fully Assessed Reason for Visit: Patient Update [1234] Prescriptions as of 01/21/2024 - ramipril (ALTACE) 10 mg capsule Take 10 mg by mouth once daily. - tamsulosin ER (FLOMAX) 0.4 mg cap Take 0.4 mg by mouth once daily. 3 or 4 time a week - amLODIPine (NORVASC) 5 mg tablet Take 5 mg by mouth once daily. - metoprolol succinate ER (TOPROL XL) 100 mg Take 100 mg by mouth once daily. - rosuvastatin (CRESTOR) 5 mg tablet Take 10 mg by mouth once daily. - aspirin 81 mg chewable tablet Take 81 mg by mouth once daily. 3 time a week - clopidogrel (PLAVIX) 75 mg tablet Take 1 tablet by mouth once daily. Problem List As Of Date 12/05/2023 Noted Resolved CHRONIC HEPATITIS NOS [K73.9] 08/29/2006 Dissecting aneurysm of thoracic aorta, Hank*01/29/2014 Coronary artery disease with angina pectoris, u*01/29/2014 CKD (chronic kidney disease) stage 2, GFR 60-89*01/29/2014 Preop cardiovascular exam [Z01.810] 02/03/2014 Hyperglycemia [R73.9] 02/04/2014 Fluid overload [E87.70] 02/05/2014 Atelectasis [J98.11] 02/05/2014 Post-operative pain [G89.18] 02/05/2014 Confusion [R41.0] 02/06/2014 DM (diabetes mellitus) (HCC) [E11.9] 02/07/2014 Hypertension [I10] 02/07/2014 A-fib (HCC) [I48.91] 02/07/2014 07/04/2023 SUMMARY [V999.95] 02/07/2014 Visit for wound check [Z51.89] 03/29/2014 Age-related macular degeneration, dry, left eye*10/12/2014 Floaters [H43.399] 10/12/2014 Nuclear sclerotic cataract of right eye [H25.11]10/12/2014 PSC (posterior subcapsular cataract), left [IMO*10/12/2014 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, [address] Absolute Neut 5.3 X10 3/uL Normal 2.0-7.7 [facility] Comment on above: Performed By: #### L 500.4050, L503.6005, L100.0100 #### [facility] [address] [place], [address] Basophils/100 WBC (Bld) 1.0 % Normal 0-1 [facility] Comment on above: Performed By: #### L 500.4050, L503.6005, L100.0100 #### [facility] [address] [place], [address] Eosinophils/100 WBC (Bld) 5.5 % High 0-5 [facility] Comment on above: Performed By: #### L 500.4050, L503.6005, L100.0100 #### [facility] [address] [place], [address] Erythrocyte distribution width (RBC) [Ratio] 12.8 % Normal 11.6-14.6 [facility] Comment on above: Performed By: #### L 500.4050, L503.6005, L100.0100 #### [facility] [address] [place], [address] Hematocrit (Bld) [Volume fraction] 42.9 % Normal 40-54 [facility] Comment on above: Performed By: #### L 500.4050, L503.6005, L100.0100 #### [facility] [address] [place], [address] Hemoglobin (Bld) [Mass/Vol] 14.1 g/dL Normal 13.0-16.5 [facility] Comment on above: Performed By: #### L 500.4050, L503.6005, L100.0100 #### [facility] [address] [place], [address] IG% 0.200 Normal 0.0-0.9 [facility] Comment on above: Result Comment: IG% - Immature Granulocytes (promyelocytes, myelocytes and metamyelocytes) > 1% indicates that a LEFT SHIFT is Present. Performed By: #### L 500.4050, L503.6005, L100.0100 #### [facility] [address] [place], [address] Lymphocytes/100 WBC (Bld) 28.9 % Normal 19-41 [facility] Comment on above: Performed By: #### L 500.4050, L503.6005, L100.0100 #### [facility] [address] [place], [address] MCH (RBC) [Entitic mass] 29.4 pg Normal 27.0-32.0 [facility] Comment on above: Performed By: #### L 500.4050, L503.6005, L100.0100 #### [facility] [address] [place], [address] MCHC (RBC) [Mass/Vol] 32.9 g/dL Normal 32-36 [facility] Comment on above: Performed By: #### L 500.4050, L503.6005, L100.0100 #### [facility] [address] [place], [address] MCV (RBC) [Entitic vol] 89.6 fL Normal 80-94 [facility] Comment on above: Performed By: #### L 500.4050, L503.6005, L100.0100 #### [facility] [address] [place], [address] Monocytes/100 WBC (Bld) 7.7 % Normal 0-10 [facility] Comment on above: Performed By: #### L 500.4050, L503.6005, L100.0100 #### [facility] [address] [place], [address] Neutrophils/100 WBC (Bld) 56.7 % Normal 47-70 [facility] Comment on above: Performed By: #### L 500.4050, L503.6005, L100.0100 #### [facility] [address] [place], [address] Nucleated RBC (Bld) [#/Vol] 0 10*3/uL Normal 0-5 [facility] Comment on above: Performed By: #### L 500.4050, L503.6005, L100.0100 #### [facility] [address] [place], [address] Platelet mean volume (Bld) [Entitic vol] 9.9 fL Normal 6.2-12.0 [facility] Comment on above: Performed By: #### L 500.4050, L503.6005, L100.0100 #### [facility] [address] [place], [address] Platelets (Bld) [#/Vol] 172 10*3/uL Normal 150-450 [facility] Comment on above: Performed By: #### L 500.4050, L503.6005, L100.0100 #### [facility] [address] [place], [address] RBC (Bld) [#/Vol] 4.79 10*6/uL Normal 4.6-6.2 [facility] Comment on above: Performed By: #### L 500.4050, L503.6005, L100.0100 #### [facility] [address] [place], [address] RDW SD 41.8 fl Normal 35.1-43.9 [facility] Comment on above: Performed By: #### L 500.4050, L503.6005, L100.0100 #### [facility] [address] [place], [address] WBC (Bld) [#/Vol] 9.4 10*3/uL Normal 4.4-11.0 [facility] Comment on above: Performed By: #### L 500.4050, L503.6005, L100.0100 #### [facility] [address] [place], [address] CTA Chst, Abd, Pel W and/or WOon 11-09-2023 CTA Chst, Abd, Pel W and/or WO [facility] Imaging Services [address] [place] [address] CTA Chst, Abd, Pel W and/or WO MR#: [id number] Acct: [id number] Name: CARLITO CHATTERJEE Rep #: [id number] : 1940 M 83 From: Maddy alvarez MD PCP: Dr. Edson Baptiste MD Status: REG ER Study: CTA Chst, Abd, Pel W and/or WO Date of Exam: 0 11/09/23 Exam# [id number] Ordering Dr: Cortney Pardo DO ADDENDUM by Dr. Maddy De La Cruz MD on 11/09/23 at 0819 [id number] HISTORY: abdominal pain RLQ/AAA. TECHNIQUE: CTA chest, abdomen, and pelvis was obtained the intravenous administration of 100 mL Isovue-370 with sagittal and coronal reconstructed MIP views. A radiation dose optimization technique was used for this scan. 905 images. COMPARISON: XR 09/09/2006. FINDINGS: Chest- CENTRAL AIRWAYS: Minimal dependent material at the michael. LUNGS: Calcified granulomas in the right middle lobe. Mild dependent lower lobe atelectasis. PLEURA: No pneumothorax or significant pleural effusion. HEART/PERICARDIUM: Heart within normal limits in size. Midline sternotomy. No significant pericardial effusion. VESSELS: Thoracic aortic dissection beginning from the proximal aortic arch to the abdominal aorta and extending into the right brachiocephalic, right common carotid, left common carotid, and left subclavian and axillary arteries. Mild acute intramural hematoma extending from the aortic arch to proximal descending aorta. No contrast extravasation into the mediastinum. No large central filling defect in the pulmonary arteries. MEDIASTINUM/EROS: Small calcified mediastinal lymph nodes. OSSEOUS STRUCTURES/CHEST WALL: Degenerative change. Abdomen and pelvis- BOWEL: Bowel including appendix nondilated. No focal pericolonic inflammatory change. PERITONEUM: No significant ascites. LIVER: Small cysts measuring up to 2.6 cm and the left lobe. Transient hepatic attenuation difference noted in the right lobe. GALLBLADDER: Cholecystectomy. SPLEEN/PANCREAS/ADRENAL GLANDS: No focal lesions. KIDNEYS: No hydronephrosis. Subcentimeter right renal cyst. VESSELS: Abdominal aortic dissection extends to the bifurcation and into the origin of the celiac axis and superior mesenteric artery . False lumen supplies the right renal artery and true lumen supplies the left renal and inferior mesenteric arteries. 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 PELVIC ORGANS: Mildly enlarged prostate gland. OSSEOUS STRUCTURES: Degenerative change. 11/09/23 08 Date cc: Dr. Edson Baptiste MD; Dr. Cortney Pardo, DO * Signed ADDENDUM by Dr. Maddy De La Cruz MD on 11/09/[address]/CTA Chst, Abd, Pel W and/or WO IMPRESSION: Aortic dissection extending from the proximal aortic arch to abdominal aorta with mild acute intramural hematoma in the aortic arch extending to the proximal descending aorta. No contrast extravasation into the mediastinum or acute retroperitoneal hematoma. Extension of dissection into the major arch vessels and branches of the abdominal aorta as above. Normal contrast-enhanced CT of the abdomen and pelvis. N.B. : The above Results were Read Back by Maddy De La Cruz MD to Jose M Ellison MD, and understanding confirmed on 11/09/2023 08:34:32 (ET). Electronically Signed: Maddy De La Cruz MD at 8:19 EDT , 11/09/23 0841 Date cc: Dr. Edson Baptiste MD; Dr. Cortney Pardo DO * Signed We are attempting to reach an attending provider to discuss findings. An addendum with communication details will be sent when the communication is complete. [id number] HISTORY: abdominal pain RLQ/AAA. TECHNIQUE: CTA chest, abdomen, and pelvis was obtained the intravenous administration of 100 mL Isovue-370 with sagittal and coronal reconstructed MIP views. A radiation dose optimization technique was used for this scan. 905 images. COMPARISON: XR 09/09/2006. FINDINGS: Chest- CENTRAL AIRWAYS: Minimal dependent material at the michael. LUNGS: Calcified granulomas in the right middle lobe. Mild dependent lower lobe atelectasis. PLEURA: No pneumothorax or significant pleural effusion. HEART/PERICARDIUM: Heart within normal limits in size. Midline sternotomy. No significant pericardial effusion. VESSELS: Thoracic aortic dissection beginning from the proximal aortic arch to the abdominal aorta and extending into the right brachiocephalic, right common carotid, left common carotid, and left subclavian and axillary arteries. Mild acute intramural hematoma extending from the aortic arch to proximal descending aorta. No contrast extravasation into the mediastinum. (more content not included)... Normal [facility] Comprehensive Metabolic Prof ilon 11-09-2023 Albumin [Mass/Vol] 3.8 g/dL Normal 3.2-5.0 [facility] Comment on above: Performed By: #### L 500.4050, L503.6005, L100.0100 #### [facility] [address] [place], [address] Albumin/Globulin [Mass ratio] 1.2 {ratio} Normal 0.9-2.4 [facility] Comment on above: Performed By: #### L 500.4050, L503.6005, L100.0100 #### [facility] [address] [place], [address] ALK P 42 U/L Low 45-117 [facility] Comment on above: Performed By: #### L 500.4050, L503.6005, L100.0100 #### [facility] [address] [place], [address] ALT [Catalytic activity/Vol] 25 U/L Normal 16-61 [facility] Comment on above: Performed By: #### L 500.4050, L503.6005, L100.0100 #### [facility] [address] [place], [address] AST [Catalytic activity/Vol] 27 U/L Normal 15-37 [facility] Comment on above: Performed By: #### L 500.4050, L503.6005, L100.0100 #### [facility] [address] [place], [address] Bilirubin [Mass/Vol] 0.70 mg/dL Normal 0.20-1.00 [facility] Comment on above: Result Comment: For patients on eltrombopag therapy, use of Dimension [place] TBIL is not recommended. Performed By: #### L 500.4050, L503.6005, L100.0100 #### [facility] [address] [place], [address] BUN/CRE 15.6 RATIO Normal 10-20 [facility] Comment on above: Performed By: #### L 500.4050, L503.6005, L100.0100 #### [facility] [address] [place], [address] CA,Total 9.4 mg/dL Normal 8.5-10.1 [facility] Comment on above: Performed By: #### L 500.4050, L503.6005, L100.0100 #### [facility] [address] [place], [address] Chloride [Moles/Vol] 106 mmol/L Normal 98-107 [facility] Comment on above: Performed By: #### L 500.4050, L503.6005, L100.0100 #### [facility] [address] [place], [address] CO2 [Moles/Vol] 30.0 mmol/L Normal 21.0-32.0 [facility] Comment on above: Performed By: #### L 500.4050, L503.6005, L100.0100 #### [facility] [address] [place], [address] Creatinine [Mass/Vol] 1.35 mg/dL High 0.70-1.30 [facility] Comment on above: Result Comment: The validity of the calculated GFR GFRAA in patients over 70 years has not been determined. Clinical correlation is essential. Performed By: #### L 500.4050, L503.6005, L100.0100 #### [facility] [address] [place], [address] ECRCL 43.56 ml/min Normal [facility] Comment on above: Performed By: #### L 500.4050, L503.6005, L100.0100 #### [facility] [address] [place], [address] EST GFR - AA 65 mL/min Normal >60 [facility] Comment on above: Result Comment: Afri can Italian GFR Calc Performed By: #### L 500.4050, L503.6005, L100.0100 #### [facility] [address] [place], [address] GAP 5 Normal 5-15 [facility] Comment on above: Performed By: #### L 500.4050, L503.6005, L100.0100 #### [facility] [address] [place], [address] GFR/1.73 sq M.predicted among non-blacks MDRD (S/P/Bld) [Vol rate/Area] 54 mL/min/{1.73_m2} Low >60 [facility] Comment on above: Result Comment: Non- GFR Calc Performed By: #### L 500.4050, L503.6005, L100.0100 #### [facility] [address] [place], [address] Globulin (S) [Mass/Vol] 3.2 g/dL Normal 2.2-4.2 [facility] Comment on above: Performed By: #### L 500.4050, L503.6005, L100.0100 #### [facility] [address] [place], [address] Glucose [Mass/Vol] 113 mg/dL High 74-106 [facility] Comment on above: Result Comment: Fast ing Glucose result from 100 to 125 mg/dL suggests IMPAIRED HOMEOSTASIS per A.D.A. criteria. Performed By: #### L 500.4050, L503.6005, L100.0100 #### [facility] [address] [place], [address] Potassium [Moles/Vol] 4.1 mmol/L Normal 3.5-5.1 [facility] Comment on above: Performed By: #### L 500.4050, L503.6005, L100.0100 #### [facility] [address] [place], [address] Sodium [Moles/Vol] 141 mmol/L Normal 136-145 [facility] Comment on above: Performed By: #### L 500.4050, L503.6005, L100.0100 #### [facility] [address] [place], [address] T PROT 7.0 g/dL Normal 6.4-8.2 [facility] Comment on above: Performed By: #### L 500.4050, L503.6005, L100.0100 #### [facility] [address] [place], [address] Urea nitrogen [Mass/Vol] 21 mg/dL High 7-18 [facility] Comment on above: Performed By: #### L 500.4050, L503.6005, L100.0100 #### [facility] [address] [place], [address] Emergency Department Summary on 11-09-2023 Emergency Department Summary [facility] Medical Records Department [address] [place] [address] Emergency Department Summary 11/09/23 MR#: [id number] Acct: [id number] Name: CARLITO CHATTERJEE Rep #: [id number] : [id number] 83 From: Cortney Pardo DO PCP: Dr. Edson Baptiste MD Status:REG ER Location: ED ADDENDUM by Dr. Jose M Ellison MD on 11/09/23 at 0841 Patient was endorsed to me by Dr. Cortney Mejia to check the CTA of the chest abdomen and pelvis on this patient with known aortic dissection and was having abdominal pain. Repeat examination at approximately 8:30 AM shows him resting comfortably. I reviewed the radiology report and received a call from the radiologist regarding the results. While there is no extravasation of fluid into the mediastinum, there is an aortic dissection with possibly acute thrombus in the thoracic portion. The dissection extends all the way to the abdominal aorta. In discussion with the patient and his , he had aortic dissection repair approximately 10 years ago. He is not having chest pain. They feel that he had dissected all the way down to his abdomen previously and they are being followed by the [facility] every 2 years. They were more concerned about his appendix. I reviewed the radiology report in detail, and while his appendix is present, there is no evidence of inflammation. At this point in time, he feels improved. I feel he can be discharged safely home with follow-up. Return instructions to the emergency department were reviewed. Patient and are comfortable with the plan. Disposition is discharged in stable condition. 11/09/23 0841 Cosigner Signature (if applicable): cc: Dr. Edson Baptiste MD * Signed HPI History of Present Illness Chief Complaint: Abd Pain Detail of Chief Complaint: Abdominal pain Informant: patient Narrative Narrative: Patient presents with abdominal pain that started about half an hour ago. Patient states the pain woke him from sleep. Pain came on suddenly. Pain is 8 out of 10. Denies nausea or vomiting. Denies diarrhea. Denies urinary symptoms. He has not had pain like this before. Has history of a bladder stone. 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 Patient went to bed feeling fine. [facility] Medical History Aortic dissection High cholesterol Hypertension Home Medications ???Medication ???Instructions ???Recorded ???Last Taken ???Type amlodipine 5 mg tablet 5 mg PO DAILY 11/09/23 Unknown History aspirin 81 mg tablet,delayed 81 mg PO QODAY 11/09/23 Unknown History release (Adult Aspirin Regimen) clopidogrel 75 mg tablet 75 mg PO DAILY 11/09/23 Unknown History metoprolol succinate 100 mg 100 mg PO DAILY 11/09/23 Unknown History tablet,extended release 24 hr ramipril 10 mg capsule 10 mg PO DAILY 11/09/23 Unknown History rosuvastatin 10 mg tablet 10 mg PO QHS 11/09/23 Unknown History tamsulosin 0.4 mg capsule 0.4 mg PO DAILY 11/09/23 Unknown History Allergy/AdvReac Type Severity Reaction Status Date / Time celecoxib (From Celebrex) Allergy Hives Verified 11/09/23 05:30 Surgical History S/P aorta repair Social History Smoking Status: Current some day smoker tobacco type: pipe ROS ROS ED Review of Systems ROS Unobtainable: other Constitutional Constitutional ED: Reports lethargy; Denies chills, fever(s), sweats or weight loss Eyes Eyes: Denies blurry vision, change in vision or diplopia ENT ENT ED: Denies rhinorrhea or sore throat Cardiovascular Cardiovascular: Denies chest pain, orthopnea or racing heartbeat Respiratory/Chest Respiratory/Chest: Denies cough, dyspnea, dyspnea on exertion, orthopnea or sputum Gastrointestinal Gastrointestinal: Reports abdominal pain; Denies diarrhea, nausea or vomiting Genitourinary Genitourinary ED: Denies dysuria, hematuria or urinary frequency Musculoskeletal Musculoskeletal: Denies arthralgias, back pain, myalgias or neck pain Integumentary Denies abscess, Abrasions or rash Neurologic Neurologic: Denies headache(s) or weakness Psychiatric Psychiatric: Denies anxiety, depression or suicidal thoughts Endocrine Endocrinology: Denies polydipsia, polyphagia or polyuria Hematologic/Lymphatic Hematologic/Lymphatic: Denies easy bleeding, easy bruising or lymphadenopathy Allergic/Immunologic Allergic/Immunologic ED: Denies mouth swelling, tongue swelling or urticaria EXAM Physical Exam Const Vital Signs: 11/09/23 05:29 Temperature 97.6 F L Temperature Source Oral Pulse Rate 54 L Respiratory Rate 16 Blood Pressure 166/62 H Blood Pressure Mean 96 Pu (more content not included)... Normal [facility] Lactic Acidon 11-09-2023 Lactate [Moles/Vol] 1.5 mmol/L Normal 0.4-1.9 [facility] Comment on above: Order Comment: Y Performed By: #### L 500.4050, L503.6005, L100.0100 #### [facility] [address] [facility] [id number] Urinalysis, Completeon 11-08 BACTERIA 0 SEEN Normal None Seen [facility] Comment on above: Order Comment: COLLE CTOR TO SPECIFY Performed By: #### L 400.0001 #### [facility] [address] [facility] [address] EPI,SQUAMOUS 0 SEEN Normal 0-5 [facility] Comment on above: Order Comment: COLLE CTOR TO SPECIFY Performed By: #### L 400.0001 #### [facility] [address] [place], [address] Mucus Ql (Urine sed) 0 SEEN Normal [facility] Comment on above: Order Comment: COLLE CTOR TO SPECIFY Performed By: #### L 400.0001 #### [facility] [address] [place], [address] RBC 0 SEEN Normal 0-5 [facility] Comment on above: Order Comment: STEFFEN CTOR TO SPECIFY Performed By: #### L 400.0001 #### [facility] [address] [place], [place], [id number] WBC 0 SEEN Normal 0-5 [facility] Comment on above: Order Comment: STEFFEN CTOR TO SPECIFY Performed By: #### L 400.0001 #### [facility] [address] [place], [place], [id number] Absolute lymphocyte countOrd ered By: Edson Baptiste on 07-11-2023 Lymphocytes Auto (Unsp spec) [#/Vol] 2.12 10*3/uL 0.83-4.51 [facility] Automated lymphocyte count a s percentage of total leukocytesOrdered By: Edson Baptiste on 07-11-2023 Lymphocytes/100 WBC Auto (Unsp spec) 28.6 % 19-41 [facility] Basophil percentageOrdered B y: Edson Baptiste on 07-11-2023 Basophil percentage 0-5 SEEN /hpf 0-5 [facility] Basophils/100 WBC (Bld) 0.9 % 0-1 [facility] Bilirubin [Mass/Vol] 0.40 mg/dL 0.20-1.00 [facility] Comment on above: For patients on eltr ombopag therapy, use of Dimension [place] TBIL is not recommended. Chloride [Moles/Vol] 107 mmol/L 98-107 [facility] Cholesterol [Mass/Vol] 160 mg/dL <200 [facility] Comment on above: <200 mg/dL Desirable 200-240 mg/dL Borderline >240 mg/dL High Risk Eosinophils/100 WBC (Bld) 6.4 % 0-5 [facility] Glucose [Mass/Vol] 99 mg/dL 74-106 [facility] Hemoglobin (Bld) [Mass/Vol] 14.1 g/dL 13.0-16.5 [facility] Monocytes/100 WBC (Bld) 6.8 % 0-10 [facility] Neutrophils (Bld) [#/Vol] 4.2 10*3/uL 2.0-7.7 [facility] Neutrophils/100 WBC (Bld) 57.0 % 47-70 [facility] Potassium [Moles/Vol] 4.1 mmol/L 3.5-5.1 [facility] Protein [Mass/Vol] 6.9 g/dL 6.4-8.2 [facility] Sodium [Moles/Vol] 140 mmol/L 136-145 [facility] Triglyceride [Mass/Vol] 185 mg/dL <199 [facility] Comment on above: The drugs N-Acetylcy steine and Metamizole may falsely depress this assay.Serum Triglycerides Reference Interval Normal <150 mg/dL Borderline high 150 - 199 mg/dL High 200 - 499 mg/dL Very High > or = 500 mg/dL WBC (Bld) [#/Vol] 7.4 10*3/uL 4.4-11.0 [facility] Bilirubin Test strip Ql (U)O rdered By: Edson Baptiste on 07-11-2023 Bilirubin Ql (U) Negative Negative [facility] Calcium oxalate crystals det ection in urine sediment by light microscopyOrdered By: Edson Baptiste on 07-11-2023 Calcium oxalate crystals LM Ql (Urine sed) RARE /hpf [facility] Determination of erythrocyte mean corpuscular volume (MCV)Ordered By: Edson Baptiste on 07-11-2023 MCV (RBC) [Entitic vol] 92.8 fL 80-94 [facility] Erythrocyte distribution wid th ratioOrdered By: Edson Baptiste on 07-11-2023 Erythrocyte distribution width (RBC) [Ratio] 12.4 % 11.6-14.6 [facility] Erythrocyte distribution wid th standard deviationOrdered By: Edson Baptiste on 07-11-2023 Erythrocyte distribution width (RBC) [Entitic vol] 42.1 fL 35.1-43.9 [facility] Hematocrit Auto (Bld) [Volum e fraction]Ordered By: Edson Baptiste on 07-11-2023 Hematocrit (Bld) [Volume fraction] 42.8 % 40-54 [facility] Immature granulocytes/100 WB C Auto (Bld)Ordered By: Edson Baptiste on 07-11-2023 Immature granulocytes/100 WBC (Bld) 0.300 % 0.0-0.9 [facility] Comment on above: IG% - Immature Granu locytes (promyelocytes, myelocytes and metamyelocytes) > 1% indicates that a LEFT SHIFT is Present. Ketones Test strip Ql (U)Ord ered By: Edson Baptiste on 07-11-2023 Ketones Ql (U) Negative Negative [facility] - Chemistry and C hemistry - challengeOrdered By: Edson Baptiste on 07-11-2023 Albumin/Globulin [Mass ratio] 1.3 {ratio} 0.9-2.4 [facility] ALP [Catalytic activity/Vol] 46 U/L 45-117 [facility] ALT [Catalytic activity/Vol] 21 U/L 16-61 [facility] Cholesterol in HDL [Mass/Vol] 45 mg/dL >40 [facility] Comment on above: The drugs N-Acetylcy steine and Metamizole may falsely depress this assay. Reference Range HDL <40 mg/dL Low HDL Cholesterol HDL >or= 60 mg/dL High HDL Cholesterol Cholesterol in LDL [Mass/Vol] 78 mg/dL 0-130 [facility] CO2 [Moles/Vol] 28.0 mmol/L 21.0-32.0 [facility] Globulin (S) [Mass/Vol] 3.0 g/dL 2.2-4.2 [facility] Magnesium [Mass/Vol] 2.4 mg/dL 1.6-2.6 [facility] Urea nitrogen/Creatinine [Mass ratio] 14.8 mg/mg 10-20 [facility] - Hematology and Cell countsOrdered By: Edson Baptiste on 07-11-2023 MCH (RBC) [Entitic mass] 30.6 pg 27.0-32.0 [facility] MCHC (RBC) [Mass/Vol] 32.9 g/dL 32-36 [facility] Nucleated RBC/100 WBC (Bld) [Ratio] 0 % 0-5 [facility] Platelet mean volume (Bld) [Entitic vol] 9.9 fL 6.2-12.0 [facility] Platelets (Bld) [#/Vol] 181 10*3/uL 150-450 [facility] Mucus LM Ql (Urine sed)Order ed By: Edson Baptiste on 07-11-2023 Mucus Ql (Urine sed) 0 SEEN /hpf [facility] Nitrite Test strip Ql (U)Ord ered By: Edson Baptiste on 07-11-2023 Nitrite Ql (U) Negative Negative [facility] No Panel InformationOrdered By: Edson Baptiste on 07-11-2023 Urine RBC 0-5 SEEN /hpf 0-5 [facility] Estimated GFR (MDRD) Amer 65 mL/min >60 [facility] Comment on above: GFR Calc Estimated GFR (MDRD) Non-Af Amer 54 mL/min >60 [facility] Comment on above: Non- GFR Calc VLDL Cholesterol 37 mg/dL 5-40 [facility] Protein Test strip Ql (U)Ord ered By: Edson Baptiste on 07-11-2023 Protein Ql (U) 15 mg/dl Negative [facility] RBC Auto (Bld) [#/Vol]Ordere d By: Edson Baptiste on 07-11-2023 RBC (Bld) [#/Vol] 4.61 10*6/uL 4.6-6.2 [facility] Serum or plasma calcium philip urement (mass/volume)Ordered By: Edson Baptiste on 07-11-2023 Calcium [Mass/Vol] 9.4 mg/dL 8.5-10.1 [facility] Serum or plasma creatinine m easurement (mass/volume)Ordered By: Edson Baptiste on 07-11-2023 Creatinine [Mass/Vol] 1.35 mg/dL 0.70-1.30 [facility] Comment on above: The validity of the calculated GFR & GFRAA in patients over 70 years has not been determined. Clinical correlation is essential. Serum or plasma thyroid stim ulating hormone (TSH) measurement (units/volume)Ordered By: Edson Baptiste on 07-11-2023 TSH Qn 2.83 uIU/mL 0.358-3.74 [facility] Serum or plasma urea nitroge n measurement (mass/volume)Ordered By: Edson Baptiste on 07-11-2023 Urea nitrogen [Mass/Vol] 20 mg/dL 7-18 [facility] Squamous epithelial cells de tection in urine sediment by light microscopyOrdered By: Edson Baptiste on 07-11-2023 Epithelial cells.squamous LM Ql (Urine sed) 0 SEEN /hpf 0-5 [facility] Thin prep Papanicolaou smear with manual screeningOrdered By: Edson Baptiste on 07-11-2023 Thin prep Papanicolaou smear with manual screening 3.9 g/dL 3.2-5.0 [facility] Thin prep Papanicolaou smear with manual screening 20 U/L 15-37 [facility] Thin prep Papanicolaou smear with manual screening 5 5-15 [facility] Urine blood detectionOrdered By: Edson Baptiste on 07-11-2023 RBC Ql (U) 25 /ul Negative [facility] Urine clarityOrdered By: Tom Baptiste on 07-11-2023 Clarity (U) Clear Clear [facility] Urine color determinationOrd ered By: Edson Baptiste on 07-11-2023 Color (U) Yellow Yellow [facility] Urine glucose detectionOrder ed By: Edson Baptiste on 07-11-2023 Glucose Ql (U) Normal mg/dl Normal [facility] Urine leukocyte esterase det ection by dipstickOrdered By: Edson Baptiste on 07-11-2023 Leukocyte esterase Test strip Ql (U) 25 /ul Negative [facility] Urine pHOrdered By: Edson feldman on 07-11-2023 pH (U) 5.0 [pH] 5.0 - 8.0 [facility] Urine sediment bacteria coun t by microscopy (number/high power field)Ordered By: Edson Baptiste on 07-11-2023 Bacteria LM.HPF (Urine sed) [#/Area] 0 /[HPF] None Seen [facility] Urine specific gravity measu rementOrdered By: Edson Baptiste on 07-11-2023 Specific gravity (U) [Rel density] 1.020 1.002-1.030 [facility] Urine urobilinogen measureme ntOrdered By: Edson Baptiste on 07-11-2023 Urobilinogen Ql (U) Normal mg/dl Normal [facility] CREATININE, BLOOD (POC)on Creatinine [Mass/Vol] 1.40 mg/dL 0.7 - 1.4 mg/dL [facility] eGFR (POCT) 50 mL/min/1.73 m2 [facility] No Panel Informationon 07-02 [facility] Absolute lymphocyte countOrd ered By: Edson Baptiste on 03-04-2023 Lymphocytes Auto (Unsp spec) [#/Vol] 2.23 10*3/uL 0.83-4.51 [facility] Basophil percentageOrdered B y: Edson Baptiste on 03-04-2023 Basophils/100 WBC (Bld) 1.0 % 0-1 [facility] Bilirubin [Mass/Vol] 0.70 mg/dL 0.20-1.00 [facility] Comment on above: For patients on eltr ombopag therapy, use of Dimension [place] TBIL is not recommended. Chloride [Moles/Vol] 110 mmol/L 98-107 [facility] Cholesterol [Mass/Vol] 151 mg/dL <200 [facility] Comment on above: <200 mg/dL Desirable 200-240 mg/dL Borderline >240 mg/dL High Risk Eosinophils/100 WBC (Bld) 5.1 % 0-5 [facility] Glucose [Mass/Vol] 97 mg/dL 74-106 [facility] Neutrophils (Bld) [#/Vol] 4.7 10*3/uL 2.0-7.7 [facility] Neutrophils/100 WBC (Bld) 57.5 % 47-70 [facility] Potassium [Moles/Vol] 4.3 mmol/L 3.5-5.1 [facility] Protein [Mass/Vol] 6.8 g/dL 6.4-8.2 [facility] Sodium [Moles/Vol] 142 mmol/L 136-145 [facility] Triglyceride [Mass/Vol] 112 mg/dL <199 [facility] Comment on above: The drugs N-Acetylcy steine and Metamizole may falsely depress this assay.Serum Triglycerides Reference Interval Normal <150 mg/dL Borderline high 150 - 199 mg/dL High 200 - 499 mg/dL Very High > or = 500 mg/dL WBC (Bld) [#/Vol] 8.2 10*3/uL 4.4-11.0 [facility] Blood erythrocytes count (nu mber/volume)Ordered By: Edson Baptiste on 03-04-2023 RBC (Bld) [#/Vol] 4.58 10*6/uL 4.6-6.2 [facility] Blood hemoglobin measurement (mass/volume)Ordered By: Edson Baptiste on 03-04-2023 Hemoglobin (Bld) [Mass/Vol] 13.7 g/dL 13.0-16.5 [facility] Blood lymphocytes/100 leukoc ytesOrdered By: Edson Baptiste on 03-04-2023 Lymphocytes/100 WBC (Bld) 27.3 % 19-41 [facility] Blood monocytes/100 leukocyt esOrdered By: Edson Baptiste on 03-04-2023 Monocytes/100 WBC (Bld) 7.4 % 0-10 [facility] Blood platelet mean volumeOr dered By: Edson Baptiste on 03-04-2023 Platelet mean volume (Bld) [Entitic vol] 10.5 fL 6.2-12.0 [facility] Culture, urineOrdered By: Viviana Baptiste on 03-04-2023 Bacteria identified Cx Nom (U) Culture exhibits no growth. [facility] Determination of erythrocyte mean corpuscular volume (MCV)Ordered By: Edson Baptiste on 03-04-2023 MCV (RBC) [Entitic vol] 92.6 fL 80-94 [facility] Hematocrit Auto (Bld) [Volum e fraction]Ordered By: Edson Baptiste on 03-04-2023 Hematocrit (Bld) [Volume fraction] 42.4 % 40-54 [facility] - Chemistry and C hemistry - challengeOrdered By: Edson Baptiste on 03-04-2023 ALP [Catalytic activity/Vol] 42 U/L 45-117 [facility] ALT [Catalytic activity/Vol] 23 U/L 16-61 [facility] CO2 [Moles/Vol] 27.0 mmol/L 21.0-32.0 [facility] Globulin (S) [Mass/Vol] 3.2 g/dL 2.2-4.2 [facility] Urea nitrogen/Creatinine [Mass ratio] 19.8 mg/mg 10-20 [facility] - Hematology and Cell countsOrdered By: Edson Baptiste on 03-04-2023 Erythrocyte distribution width (RBC) [Entitic vol] 42.9 fL 35.1-43.9 [facility] Erythrocyte distribution width (RBC) [Ratio] 12.6 % 11.6-14.6 [facility] Immature granulocytes/100 WBC (Bld) 1.700 % 0.0-0.9 [facility] Comment on above: IG% - Immature Granu locytes (promyelocytes, myelocytes and metamyelocytes) > 1% indicates that a LEFT SHIFT is Present. MCH (RBC) [Entitic mass] 29.9 pg 27.0-32.0 [facility] Nucleated RBC/100 WBC (Bld) [Ratio] 0 % 0-5 [facility] MCHC Auto (RBC) [Mass/Vol]Or dered By: Edson Baptiste on 03-04-2023 MCHC (RBC) [Mass/Vol] 32.3 g/dL 32-36 [facility] No Panel InformationOrdered By: Edson Baptiste on 03-04-2023 Estimated GFR (MDRD) Amer 70 mL/min >60 [facility] Comment on above: GFR Calc Estimated GFR (MDRD) Non-Af Amer 58 mL/min >60 [facility] Comment on above: Non- GFR Calc Platelets bldOrdered By: Tom Baptiste on 03-04-2023 Platelets (Bld) [#/Vol] 158 10*3/uL 150-450 [facility] Serum or plasma albumin philip urement (mass/volume)Ordered By: Edson Baptiste on 03-04-2023 Albumin [Mass/Vol] 3.6 g/dL 3.2-5.0 [facility] Serum or plasma albumin/glob ulin mass ratioOrdered By: Edson Baptiste on 03-04-2023 Albumin/Globulin [Mass ratio] 1.1 {ratio} 0.9-2.4 [facility] Serum or plasma calcium philip urement (mass/volume)Ordered By: Edson Baptiste on 03-04-2023 Calcium [Mass/Vol] 8.8 mg/dL 8.5-10.1 [facility] Serum or plasma cholesterol in HDL measurement (mass/volume)Ordered By: Edson Baptiste on 03-04-2023 Cholesterol in HDL [Mass/Vol] 45 mg/dL >40 [facility] Comment on above: The drugs N-Acetylcy steine and Metamizole may falsely depress this assay. Reference Range HDL <40 mg/dL Low HDL Cholesterol HDL >or= 60 mg/dL High HDL Cholesterol Serum or plasma cholesterol in VLDL measurement (mass/volume)Ordered By: Edson Baptiste on 03-04-2023 Cholesterol in VLDL [Mass/Vol] 22 mg/dL 5-40 [facility] Serum or plasma creatinine m easurement (mass/volume)Ordered By: Edson Baptiste on 03-04-2023 Creatinine [Mass/Vol] 1.26 mg/dL 0.70-1.30 [facility] Comment on above: The validity of the calculated GFR & GFRAA in patients over 70 years has not been determined. Clinical correlation is essential. Serum or plasma low density lipoprotein (LDL) cholesterol measurement (mass/volume)Ordered By: Edson Baptiste on 03-04-2023 Cholesterol in LDL [Mass/Vol] 84 mg/dL 0-130 [facility] Serum or plasma urea nitroge n measurement (mass/volume)Ordered By: Edson Baptiste on 03-04-2023 Urea nitrogen [Mass/Vol] 25 mg/dL 7-18 [facility] Thin prep Papanicolaou smear with manual screeningOrdered By: Edson Baptiste on 03-04-2023 Thin prep Papanicolaou smear with manual screening 23 U/L 15-37 [facility] Thin prep Papanicolaou smear with manual screening 5 5-15 [facility] Absolute lymphocyte countOrd ered By: Edson Baptiste on 11-21-2022 Lymphocytes Auto (Unsp spec) [#/Vol] 1.81 10*3/uL 0.83-4.51 [facility] Basophil percentageOrdered B y: Edson Baptiste on 11-21-2022 Basophil percentage 0-5 SEEN /hpf 0-5 [facility] Basophils/100 WBC (Bld) 1.2 % 0-1 [facility] Bilirubin [Mass/Vol] 0.50 mg/dL 0.20-1.00 [facility] Comment on above: For patients on eltr ombopag therapy, use of Dimension [place] TBIL is not recommended. Chloride [Moles/Vol] 106 mmol/L 98-107 [facility] Cholesterol [Mass/Vol] 113 mg/dL <200 [facility] Comment on above: <200 mg/dL Desirable 200-240 mg/dL Borderline >240 mg/dL High Risk Eosinophils/100 WBC (Bld) 6.5 % 0-5 [facility] Glucose [Mass/Vol] 97 mg/dL 74-106 [facility] Neutrophils (Bld) [#/Vol] 4.1 10*3/uL 2.0-7.7 [facility] Neutrophils/100 WBC (Bld) 59.2 % 47-70 [facility] Potassium [Moles/Vol] 4.0 mmol/L 3.5-5.1 [facility] Protein [Mass/Vol] 7.1 g/dL 6.4-8.2 [facility] Sodium [Moles/Vol] 139 mmol/L 136-145 [facility] Triglyceride [Mass/Vol] 152 mg/dL <199 [facility] Comment on above: The drugs N-Acetylcy steine and Metamizole may falsely depress this assay.Serum Triglycerides Reference Interval Normal <150 mg/dL Borderline high 150 - 199 mg/dL High 200 - 499 mg/dL Very High > or = 500 mg/dL WBC (Bld) [#/Vol] 6.9 10*3/uL 4.4-11.0 [facility] Bilirubin Test strip Ql (U)O rdered By: Edson Baptiste on 11-21-2022 Bilirubin Ql (U) Negative Negative [facility] Blood erythrocytes count (nu mber/volume)Ordered By: Edson Baptiste on 11-21-2022 RBC (Bld) [#/Vol] 4.71 10*6/uL 4.6-6.2 [facility] Blood hemoglobin measurement (mass/volume)Ordered By: Edson Baptiste on 11-21-2022 Hemoglobin (Bld) [Mass/Vol] 14.3 g/dL 13.0-16.5 [facility] Blood lymphocytes/100 leukoc ytesOrdered By: Edson Baptiste on 11-21-2022 Lymphocytes/100 WBC (Bld) 26.2 % 19-41 [facility] Blood monocytes/100 leukocyt esOrdered By: Edson Baptiste on 11-21-2022 Monocytes/100 WBC (Bld) 6.8 % 0-10 [facility] Blood platelet mean volumeOr dered By: Edson Baptiste on 11-21-2022 Platelet mean volume (Bld) [Entitic vol] 9.8 fL 6.2-12.0 [facility] Determination of erythrocyte mean corpuscular volume (MCV)Ordered By: Edson Baptiste on 11-21-2022 MCV (RBC) [Entitic vol] 91.3 fL 80-94 [facility] Hematocrit Auto (Bld) [Volum e fraction]Ordered By: Edson Baptiste on 11-21-2022 Hematocrit (Bld) [Volume fraction] 43.0 % 40-54 [facility] Ketones Test strip Ql (U)Ord ered By: Edson Baptiste on 11-21-2022 Ketones Ql (U) Negative Negative [facility] - Chemistry and C hemistry - challengeOrdered By: Edson Baptiste on 11-21-2022 ALP [Catalytic activity/Vol] 43 U/L 45-117 [facility] ALT [Catalytic activity/Vol] 26 U/L 16-61 [facility] CO2 [Moles/Vol] 28.0 mmol/L 21.0-32.0 [facility] Globulin (S) [Mass/Vol] 3.3 g/dL 2.2-4.2 [facility] Urea nitrogen/Creatinine [Mass ratio] 15.3 mg/mg 10-20 [facility] Laboratory - Hematology and Cell countsOrdered By: Edson Baptiste on 11-21-2022 Erythrocyte distribution width (RBC) [Entitic vol] 42.0 fL 35.1-43.9 [facility] Erythrocyte distribution width (RBC) [Ratio] 12.6 % 11.6-14.6 [facility] Immature granulocytes/100 WBC (Bld) 0.100 % 0.0-0.9 [facility] Comment on above: IG% - Immature Granu locytes (promyelocytes, myelocytes and metamyelocytes) > 1% indicates that a LEFT SHIFT is Present. MCH (RBC) [Entitic mass] 30.4 pg 27.0-32.0 [facility] Nucleated RBC/100 WBC (Bld) [Ratio] 0 % 0-5 [facility] MCHC Auto (RBC) [Mass/Vol]Or dered By: Edson Baptiste on 11-21-2022 MCHC (RBC) [Mass/Vol] 33.3 g/dL 32-36 [facility] Mucus LM Ql (Urine sed)Order ed By: Edson Baptiste on 11-21-2022 Mucus Ql (Urine sed) 0 SEEN /hpf [facility] Nitrite Test strip Ql (U)Ord ered By: Edson Baptiste on 11-21-2022 Nitrite Ql (U) Negative Negative [facility] No Panel InformationOrdered By: Edson Baptiste on 11-21-2022 Estimated GFR (MDRD) Amer 76 mL/min >60 [facility] Comment on above: GFR Calc Estimated GFR (MDRD) Non-Af Amer 63 mL/min >60 [facility] Comment on above: Non- GFR Calc Thyroid Stimulating Hormone (TSH) 1.34 uIU/mL 0.358-3.74 [facility] Platelets bldOrdered By: Tom Baptiste on 11-21-2022 Platelets (Bld) [#/Vol] 183 10*3/uL 150-450 [facility] Protein Test strip Ql (U)Ord ered By: Edson Baptiste on 11-21-2022 Protein Ql (U) Negative Negative [facility] Serum or plasma albumin pihlip urement (mass/volume)Ordered By: Edson Baptiste on 11-21-2022 Albumin [Mass/Vol] 3.8 g/dL 3.2-5.0 [facility] Serum or plasma albumin/glob ulin mass ratioOrdered By: Edson Baptiste on 11-21-2022 Albumin/Globulin [Mass ratio] 1.2 {ratio} 0.9-2.4 [facility] Serum or plasma calcium philip urement (mass/volume)Ordered By: Edson Baptiste on 11-21-2022 Calcium [Mass/Vol] 9.2 mg/dL 8.5-10.1 [facility] Serum or plasma cholesterol in HDL measurement (mass/volume)Ordered By: Edson Baptiste on 11-21-2022 Cholesterol in HDL [Mass/Vol] 48 mg/dL >40 [facility] Comment on above: The drugs N-Acetylcy steine and Metamizole may falsely depress this assay. Reference Range HDL <40 mg/dL Low HDL Cholesterol HDL >or= 60 mg/dL High HDL Cholesterol Serum or plasma cholesterol in VLDL measurement (mass/volume)Ordered By: Edson Baptiste on 11-21-2022 Cholesterol in VLDL [Mass/Vol] 30 mg/dL 5-40 [facility] Serum or plasma creatinine m easurement (mass/volume)Ordered By: Edson Baptiste on 11-21-2022 Creatinine [Mass/Vol] 1.18 mg/dL 0.70-1.30 [facility] Comment on above: The validity of the calculated GFR & GFRAA in patients over 70 years has not been determined. Clinical correlation is essential. Serum or plasma low density lipoprotein (LDL) cholesterol measurement (mass/volume)Ordered By: Edson Baptiste on 11-21-2022 Cholesterol in LDL [Mass/Vol] 35 mg/dL 0-130 [facility] Serum or plasma urea nitroge n measurement (mass/volume)Ordered By: Edson Baptiste on 11-21-2022 Urea nitrogen [Mass/Vol] 18 mg/dL 7-18 [facility] Squamous epithelial cells de tection in urine sediment by light microscopyOrdered By: Edson Baptiste on 11-21-2022 Epithelial cells.squamous LM Ql (Urine sed) 0 SEEN /hpf 0-5 [facility] Thin prep Papanicolaou smear with manual screeningOrdered By: Edson Baptiste on 11-21-2022 Thin prep Papanicolaou smear with manual screening 28 U/L 15-37 [facility] Thin prep Papanicolaou smear with manual screening 5 5-15 [facility] Urine blood detectionOrdered By: Edson Baptiste on 11-21-2022 RBC Ql (U) 10 /ul Negative [facility] RBC Ql (U) 0-5 SEEN /hpf 0-5 [facility] Urine clarityOrdered By: Tom Baptiste on 11-21-2022 Clarity (U) Clear Clear [facility] Urine color determinationOrd ered By: Edson Baptiste on 11-21-2022 Color (U) Yellow Yellow [facility] Urine glucose detectionOrder ed By: Edson Baptiste on 11-21-2022 Glucose Ql (U) Normal mg/dl Normal [facility] Urine leukocyte esterase det ection by dipstickOrdered By: Edson Baptiste on 11-21-2022 Leukocyte esterase Test strip Ql (U) Negative Negative [facility] Urine pHOrdered By: Edson feldman on 11-21-2022 pH (U) 7.0 [pH] 5.0 - 8.0 [facility] Urine sediment bacteria coun t by microscopy (number/high power field)Ordered By: Edson Baptiste on 11-21-2022 Bacteria LM.HPF (Urine sed) [#/Area] 0 /[HPF] None Seen [facility] Urine specific gravity measu rementOrdered By: Edson Baptiste on 11-21-2022 Specific gravity (U) [Rel density] 1.010 1.002-1.030 [facility] Urobilinogen Auto test strip Ql (U)Ordered By: Edson Baptiste on 11-21-2022 Urobilinogen Ql (U) Normal mg/dl Normal [facility] COMPREHENSIVE PANELon 2022 Albumin [Mass/Vol] 4.1 g/dL Normal 3.4 - 5.0 [facility] Comment on above: Performed By: #### C MP #### [address] [address] ALP [Catalytic activity/Vol] 40 U/L Normal 33 - 136 [facility] [place] Comment on above: Performed By: #### C MP #### [address] [address] ALT [Catalytic activity/Vol] 15 U/L Normal 10 - 52 [facility] [place] Comment on above: Result Comment: Pura ents treated with Sulfasalazine may generate falsely decreased results for ALT. Performed By: #### C MP #### [address] [address] Anion gap [Moles/Vol] 10 mmol/L Normal 10 - 20 [facility] [place] Comment on above: Performed By: #### C MP #### [address] [address] AST [Catalytic activity/Vol] 19 U/L Normal 9 - 39 [facility] [place] Comment on above: Performed By: #### C MP #### [address] [address] Bilirubin [Mass/Vol] 0.9 mg/dL Normal 0.0 - 1.2 [facility] [place] Comment on above: Performed By: #### C MP #### [address] [address] Calcium [Mass/Vol] 9.7 mg/dL Normal 8.6 - 10.3 [facility] Comment on above: Performed By: #### C MP #### [address] [address] Chloride [Moles/Vol] 106 mmol/L Normal 98 - 107 [facility] [place] Comment on above: Performed By: #### C MP #### [address] [address] Creatinine [Mass/Vol] 1.29 mg/dL Normal 0.50 - 1.30 [facility] [place] Comment on above: Performed By: #### C MP #### [address] [address] GFR/1.73 sq M.predicted among non-blacks MDRD (S/P/Bld) [Vol rate/Area] 56 mL/min/{1.73_m2} Abnormal >90 [facility] [place] Comment on above: Result Comment: CALC ULATIONS OF ESTIMATED GFR ARE PERFORMED USING THE 2020 CKD-EPI STUDY REFIT EQUATION WITHOUT THE RACE VARIABLE FOR THE IDMS-TRACEABLE CREATININE METHODS. https://jasn.asnjournals.org/content//ASN.17250 82164 Performed By: #### C MP #### [address] [address] Glucose [Mass/Vol] 101 mg/dL High 74 - 99 [facility] Comment on above: Performed By: #### C MP #### [address] [address] HCO3 (Bld) [Moles/Vol] 29 mmol/L Normal 21 - 32 [facility] [place] Comment on above: Performed By: #### C MP #### [address] [address] Potassium [Moles/Vol] 4.1 mmol/L Normal 3.5 - 5.3 [facility] [place] Comment on above: Performed By: #### C MP #### [address] [address] Protein [Mass/Vol] 6.2 g/dL Low 6.4 - 8.2 [facility] Comment on above: Performed By: #### C MP #### [address] [address] Sodium [Moles/Vol] 141 mmol/L Normal 136 - 145 [facility] Comment on above: Performed By: #### C MP #### [address] [address] Urea nitrogen [Mass/Vol] 21 mg/dL Normal 6 - 23 [facility] [place] Comment on above: Performed By: #### C MP #### [address] [address] LIPID PANEL (CORONARY RISK 2 )on 06-26-2022 Cholesterol [Mass/Vol] 128 mg/dL Normal 0 - 199 [facility] [place] Comment on above: Result Comment: . AGE DESIRABLE BORDERLINE HIGH HIGH 0-19 Y 0 - 169 170 - 199 >/= 200 20-24 Y 0 - 189 190 - 224 >/= 225 >24 Y 0 - 199 200 - 239 >/= 240 All ranges are based on fasting samples. Specific therapeutic targets will vary based on patient-specific cardiac risk. . Pediatric guidelines reference:Pediatrics 2011, 128(S5). Adult guidelines reference: NCEP ATPIII Guidelines, IKRSTY 2001, 258:2486-97 . Venipuncture immediately after or during the administration of Metamizole may lead to falsely low results. Testing should be performed immediately prior to Metamizole dosing. Performed By: #### L IPID #### [address] [address] Cholesterol in HDL [Mass/Vol] 35.0 mg/dL Abnormal [facility] [place] Comment on above: Result Comment: . AGE VERY LOW LOW NORMAL HIGH 0-19 Y < 35 < 40 40-45 ---- 20-24 Y ---- < 40 >45 ---- >24 Y ---- < 40 40-60 >60 . Performed By: #### L IPID #### [address] [address] Cholesterol in LDL [Mass/Vol] 72 mg/dL Normal 0 - 99 [facility] [place] Comment on above: Result Comment: . NEAR BORD AGE DESIRABLE OPTIMAL HIGH HIGH VERY HIGH 0-19 Y 0 - 109 --- 110-129 >/= 130 ---- 20-24 Y 0 - 119 --- 120-159 >/= 160 ---- >24 Y 0 - 99 100-129 130-159 160-189 >/=190 . Performed By: #### L IPID #### [address] [address] Cholesterol in VLDL [Mass/Vol] 21 mg/dL Normal 0 - 40 [facility] [place] Comment on above: Performed By: #### L IPID #### [address] [address] Cholesterol.total/Chol esterol in HDL [Mass ratio] 3.7 {ratio} Normal [facility] [place] Comment on above: Result Comment: REF VALUES DESIRABLE < 3.4 HIGH RISK > 5.0 Performed By: #### L IPID #### [address] [address] Triglyceride [Mass/Vol] 105 mg/dL Normal 0 - 149 [facility] [place] Comment on above: Result Comment: . AGE DESIRABLE BORDERLINE HIGH HIGH VERY HIGH 0 D-90 D 19 - 174 ---- ---- ---- 91 D- 9 Y 0 - 74 75 - 99 >/= 100 ---- 10-19 Y 0 - 89 90 - 129 >/= 130 ---- 20-24 Y 0 - 114 115 - 149 >/= 150 ---- >24 Y 0 - 149 150 - 199 200- 499 >/= 500 . Venipuncture immediately after or during the administration of Metamizole may lead to falsely low results. Testing should be performed immediately prior to Metamizole dosing. Performed By: #### L IPID #### [address] [address] COMPREHENSIVE PANELon 2021 Albumin [Mass/Vol] 4.3 g/dL Normal 3.4 - 5.0 [facility] Comment on above: Performed By: #### C MP #### [address] [address] ALP [Catalytic activity/Vol] 38 U/L Normal 33 - 136 [facility] [place] Comment on above: Performed By: #### C MP #### [address] [address] ALT [Catalytic activity/Vol] 14 U/L Normal 10 - 52 [facility] [place] Comment on above: Result Comment: Pura ents treated with Sulfasalazine may generate falsely decreased results for ALT. Performed By: #### C MP #### [address] [address] Anion gap [Moles/Vol] 10 mmol/L Normal 10 - 20 [facility] [place] Comment on above: Performed By: #### C MP #### [address] [address] AST [Catalytic activity/Vol] 17 U/L Normal 9 - 39 [facility] [place] Comment on above: Performed By: #### C MP #### [address] [address] Bilirubin [Mass/Vol] 0.7 mg/dL Normal 0.0 - 1.2 [facility] [place] Comment on above: Performed By: #### C MP #### [address] [address] Calcium [Mass/Vol] 9.5 mg/dL Normal 8.6 - 10.3 [facility] Comment on above: Performed By: #### C MP #### [address] [address] Chloride [Moles/Vol] 104 mmol/L Normal 98 - 107 [facility] [place] Comment on above: Performed By: #### C MP #### [address] [address] Creatinine [Mass/Vol] 1.37 mg/dL High 0.50 - 1.30 [facility] [place] Comment on above: Performed By: #### C MP #### [address] [address] GFR/1.73 sq M.predicted among non-blacks MDRD (S/P/Bld) [Vol rate/Area] 52 mL/min/{1.73_m2} Abnormal >90 [facility] [place] Comment on above: Result Comment: CALC ULATIONS OF ESTIMATED GFR ARE PERFORMED USING THE 2020 CKD-EPI STUDY REFIT EQUATION WITHOUT THE RACE VARIABLE FOR THE IDMS-TRACEABLE CREATININE METHODS. https://jasn.asnjournals.org/content/early//ASN.97210 36579 Performed By: #### C MP #### [address] [address] Glucose [Mass/Vol] 95 mg/dL Normal 74 - 99 [facility] Comment on above: Performed By: #### C MP #### [address] [address] HCO3 (Bld) [Moles/Vol] 31 mmol/L Normal 21 - 32 [facility] [place] Comment on above: Performed By: #### C MP #### [address] [address] Potassium [Moles/Vol] 4.6 mmol/L Normal 3.5 - 5.3 [facility] [place] Comment on above: Performed By: #### C MP #### [address] [address] Protein [Mass/Vol] 6.2 g/dL Low 6.4 - 8.2 [facility] Comment on above: Performed By: #### C MP #### [address] [address] Sodium [Moles/Vol] 140 mmol/L Normal 136 - 145 [facility] Comment on above: Performed By: #### C MP #### [address] [address] Urea nitrogen [Mass/Vol] 22 mg/dL Normal 6 - 23 [facility] [place] Comment on above: Performed By: #### C MP #### [address] [address] LIPID PANEL (CORONARY RISK 2 )on 12-25-2021 Cholesterol [Mass/Vol] 146 mg/dL Normal 0 - 199 [facility] [place] Comment on above: Result Comment: . AGE DESIRABLE BORDERLINE HIGH HIGH 0-19 Y 0 - 169 170 - 199 >/= 200 20-24 Y 0 - 189 190 - 224 >/= 225 >24 Y 0 - 199 200 - 239 >/= 240 All ranges are based on fasting samples. Specific therapeutic targets will vary based on patient-specific cardiac risk. . Pediatric guidelines reference:Pediatrics 2011, 128(S5). Adult guidelines reference: NCEP ATPIII Guidelines, KIRSTY 2001, 258:2486-97 . Venipuncture immediately after or during the administration of Metamizole may lead to falsely low results. Testing should be performed immediately prior to Metamizole dosing. Performed By: #### L IPID #### [address] [address] Cholesterol in HDL [Mass/Vol] 42.0 mg/dL Normal [facility] [place] Comment on above: Result Comment: . AGE VERY LOW LOW NORMAL HIGH 0-19 Y < 35 < 40 40-45 ---- 20-24 Y ---- < 40 >45 ---- >24 Y ---- < 40 40-60 >60 . Performed By: #### L IPID #### [address] [address] Cholesterol in LDL [Mass/Vol] 81 mg/dL Normal 0 - 99 [facility] [place] Comment on above: Result Comment: . NEAR BORD AGE DESIRABLE OPTIMAL HIGH HIGH VERY HIGH 0-19 Y 0 - 109 --- 110-129 >/= 130 ---- 20-24 Y 0 - 119 --- 120-159 >/= 160 ---- >24 Y 0 - 99 100-129 130-159 160-189 >/=190 . Performed By: #### L IPID #### [address] [address] Cholesterol in VLDL [Mass/Vol] 23 mg/dL Normal 0 - 40 [facility] [place] Comment on above: Performed By: #### L IPID #### [address] [address] Cholesterol.total/Chol esterol in HDL [Mass ratio] 3.5 {ratio} Normal [facility] [place] Comment on above: Result Comment: REF VALUES DESIRABLE < 3.4 HIGH RISK > 5.0 Performed By: #### L IPID #### [address] [address] Triglyceride [Mass/Vol] 113 mg/dL Normal 0 - 149 [facility] [place] Comment on above: Result Comment: . AGE DESIRABLE BORDERLINE HIGH HIGH VERY HIGH 0 D-90 D 19 - 174 ---- ---- ---- 91 D- 9 Y 0 - 74 75 - 99 >/= 100 ---- 10-19 Y 0 - 89 90 - 129 >/= 130 ---- 20-24 Y 0 - 114 115 - 149 >/= 150 ---- >24 Y 0 - 149 150 - 199 200- 499 >/= 500 . Venipuncture immediately after or during the administration of Metamizole may lead to falsely low results. Testing should be performed immediately prior to Metamizole dosing. Performed By: #### L IPID #### [address] [address] CBCon 07-11-2021 Erythrocyte distribution width (RBC) [Ratio] 13.9 % Normal 11.5 - 14.5 [facility] [place] Comment on above: Performed By: #### C BC #### [address] [address] Hematocrit (Bld) [Volume fraction] 42.9 % Normal 41.0 - 52.0 [facility] [place] Comment on above: Performed By: #### C BC #### [address] [address] Hemoglobin (Bld) [Mass/Vol] 14.6 g/dL Normal 13.5 - 17.5 [facility] [place] Comment on above: Performed By: #### C BC #### [address] [address] MCHC (RBC) [Mass/Vol] 34.0 g/dL Normal 32.0 - 36.0 [facility] [place] Comment on above: Performed By: #### C BC #### [address] [address] MCV (RBC) [Entitic vol] 88 fL Normal 80 - 100 [facility] [place] Comment on above: Performed By: #### C BC #### [address] [address] Platelets (Bld) [#/Vol] 168 10*3/uL Normal 150 - 450 [facility] [place] Comment on above: Performed By: #### C BC #### [place] [id number] RBC 4.87 x10E12/L Normal 4.50 - 5.90 [facility] Comment on above: Performed By: #### C BC #### [address] [address] WBC (Bld) [#/Vol] 6.6 10*3/uL Normal 4.4 - 11.3 [facility] Comment on above: Performed By: #### C BC #### [place] [id number] COMPREHENSIVE PANELon 2021 Albumin [Mass/Vol] 4.2 g/dL Normal 3.4 - 5.0 [facility] Comment on above: Performed By: #### C MP #### [address] [address] ALP [Catalytic activity/Vol] 38 U/L Normal 33 - 136 [facility] [place] Comment on above: Performed By: #### C MP #### [address] [address] ALT [Catalytic activity/Vol] 20 U/L Normal 10 - 52 [facility] [place] Comment on above: Result Comment: Pura ents treated with Sulfasalazine may generate falsely decreased results for ALT. Performed By: #### C MP #### [address] [address] Anion gap [Moles/Vol] 11 mmol/L Normal 10 - 20 [facility] [place] Comment on above: Performed By: #### C MP #### [place] [id number] AST [Catalytic activity/Vol] 22 U/L Normal 9 - 39 [facility] [place] Comment on above: Performed By: #### C MP #### [address] [address] Bilirubin [Mass/Vol] 0.7 mg/dL Normal 0.0 - 1.2 [facility] [place] Comment on above: Performed By: #### C MP #### [address] [address] Calcium [Mass/Vol] 9.2 mg/dL Normal 8.6 - 10.3 [facility] Comment on above: Performed By: #### C MP #### [address] [address] Chloride [Moles/Vol] 107 mmol/L Normal 98 - 107 [facility] [place] Comment on above: Performed By: #### C MP #### [address] [address] Creatinine [Mass/Vol] 1.24 mg/dL Normal 0.50 - 1.30 [facility] [place] Comment on above: Performed By: #### C MP #### [address] [address] GFR/1.73 sq M.predicted among non-blacks MDRD (S/P/Bld) [Vol rate/Area] 59 mL/min/{1.73_m2} Abnormal >90 [facility] [place] Comment on above: Result Comment: CALC ULATIONS OF ESTIMATED GFR ARE PERFORMED USING THE 2020 CKD-EPI STUDY REFIT EQUATION WITHOUT THE RACE VARIABLE FOR THE IDMS-TRACEABLE CREATININE METHODS. https://jasn.asnjournals.org/content/early//ASN.66165 37736 Performed By: #### C MP #### [address] [address] Glucose [Mass/Vol] 108 mg/dL High 74 - 99 [facility] Comment on above: Performed By: #### C MP #### [address] [address] HCO3 (Bld) [Moles/Vol] 28 mmol/L Normal 21 - 32 [facility] [place] Comment on above: Performed By: #### C MP #### [address] [address] Potassium [Moles/Vol] 4.3 mmol/L Normal 3.5 - 5.3 [facility] [place] Comment on above: Performed By: #### C MP #### [address] [address] Protein [Mass/Vol] 6.7 g/dL Normal 6.4 - 8.2 [facility] Comment on above: Performed By: #### C MP #### [address] [address] Sodium [Moles/Vol] 142 mmol/L Normal 136 - 145 [facility] Comment on above: Performed By: #### C MP #### [address] [address] Urea nitrogen [Mass/Vol] 23 mg/dL Normal 6 - 23 [facility] [place] Comment on above: Performed By: #### C MP #### [address] [address] LIPID PANEL (CORONARY RISK 2 )on 07-11-2021 Cholesterol [Mass/Vol] 134 mg/dL Normal 0 - 199 [facility] [place] Comment on above: Result Comment: . AGE DESIRABLE BORDERLINE HIGH HIGH 0-19 Y 0 - 169 170 - 199 >/= 200 20-24 Y 0 - 189 190 - 224 >/= 225 >24 Y 0 - 199 200 - 239 >/= 240 All ranges are based on fasting samples. Specific therapeutic targets will vary based on patient-specific cardiac risk. . Pediatric guidelines reference:Pediatrics 2011, 128(S5). Adult guidelines reference: NCEP ATPIII Guidelines, KIRSTY 2001, 258:2486-97 . Venipuncture immediately after or during the administration of Metamizole may lead to falsely low results. Testing should be performed immediately prior to Metamizole dosing. Performed By: #### L IPID #### [address] [address] Cholesterol in HDL [Mass/Vol] 33.0 mg/dL Abnormal [facility] [place] Comment on above: Result Comment: . AGE VERY LOW LOW NORMAL HIGH 0-19 Y < 35 < 40 40-45 ---- 20-24 Y ---- < 40 >45 ---- >24 Y ---- < 40 40-60 >60 . Performed By: #### L IPID #### [address] [address] Cholesterol in LDL [Mass/Vol] 66 mg/dL Normal 0 - 99 [facility] [place] Comment on above: Result Comment: . NEAR BORD AGE DESIRABLE OPTIMAL HIGH HIGH VERY HIGH 0-19 Y 0 - 109 --- 110-129 >/= 130 ---- 20-24 Y 0 - 119 --- 120-159 >/= 160 ---- >24 Y 0 - 99 100-129 130-159 160-189 >/=190 . Performed By: #### L IPID #### [address] [address] Cholesterol in VLDL [Mass/Vol] 35 mg/dL Normal 0 - 40 [facility] [place] Comment on above: Performed By: #### L IPID #### [address] [address] Cholesterol.total/Chol esterol in HDL [Mass ratio] 4.1 {ratio} Normal [facility] [place] Comment on above: Result Comment: REF VALUES DESIRABLE < 3.4 HIGH RISK > 5.0 Performed By: #### L IPID #### [address] [address] Triglyceride [Mass/Vol] 173 mg/dL High 0 - 149 [facility] [place] Comment on above: Result Comment: . AGE DESIRABLE BORDERLINE HIGH HIGH VERY HIGH 0 D-90 D 19 - 174 ---- ---- ---- 91 D- 9 Y 0 - 74 75 - 99 >/= 100 ---- 10-19 Y 0 - 89 90 - 129 >/= 130 ---- 20-24 Y 0 - 114 115 - 149 >/= 150 ---- >24 Y 0 - 149 150 - 199 200- 499 >/= 500 . Venipuncture immediately after or during the administration of Metamizole may lead to falsely low results. Testing should be performed immediately prior to Metamizole dosing. Performed By: #### L IPID #### [address] [address] CBC AND DIFFERENTIALon 07-01 Basophils (Bld) [#/Vol] 0.10 10*3/uL Normal 0.00 - 0.10 [facility] Comment on above: Order Comment: no fa x number Performed By: #### C BCDF #### [address] [address] Basophils/100 WBC (Bld) 0.9 % Normal 0.0 - 2.0 [facility] Comment on above: Order Comment: no fa x number Performed By: #### C BCDF #### [address] [address] Eosinophils (Bld) [#/Vol] 0.40 10*3/uL Normal 0.00 - 0.40 [facility] Comment on above: Order Comment: no fa x number Performed By: #### C BCDF #### [address] [address] Eosinophils/100 WBC (Bld) 5.2 % Normal 0.0 - 6.0 [facility] Comment on above: Order Comment: no fa x number Performed By: #### C BCDF #### [address] [address] Erythrocyte distribution width (RBC) [Ratio] 13.7 % Normal 11.5 - 14.5 [facility] Comment on above: Order Comment: no fa x number Performed By: #### C BCDF #### [address] [address] Hematocrit (Bld) [Volume fraction] 43.8 % Normal 41.0 - 52.0 [facility] Comment on above: Order Comment: no fa x number Performed By: #### C BCDF #### [address] [address] Hemoglobin (Bld) [Mass/Vol] 14.5 g/dL Normal 13.5 - 17.5 [facility] Comment on above: Order Comment: no fa x number Performed By: #### C BCDF #### [address] [address] Lymphocytes (Bld) [#/Vol] 1.70 10*3/uL Normal 0.80 - 3.00 [facility] Comment on above: Order Comment: no fa x number Performed By: #### C BCDF #### [address] [id number] Lymphocytes/100 WBC (Bld) 19.9 % Normal 13.0 - 44.0 [facility] Comment on above: Order Comment: no fa x number Performed By: #### C BCDF #### [address] [address] MCHC (RBC) [Mass/Vol] 33.1 g/dL Normal 32.0 - 36.0 [facility] Comment on above: Order Comment: no fa x number Performed By: #### C BCDF #### [address] [address] MCV (RBC) [Entitic vol] 91 fL Normal 80 - 100 [facility] Comment on above: Order Comment: no fa x number Performed By: #### C BCDF #### [address] [address] Monocytes (Bld) [#/Vol] 0.50 10*3/uL Normal 0.05 - 0.80 [facility] Comment on above: Order Comment: no fa x number Performed By: #### C BCDF #### [address] [address] Monocytes/100 WBC (Bld) 6.3 % Normal 2.0 - 10.0 [facility] Comment on above: Order Comment: no fa x number Performed By: #### C BCDF #### [address] [address] Neutrophils (Bld) [#/Vol] 5.80 10*3/uL High 1.60 - 5.50 [facility] Comment on above: Order Comment: no fa x number Result Comment: Perc ent differential counts (%) should be interpreted in the context of the absolute cell counts (cells/L). Performed By: #### C BCDF #### [address] [address] Neutrophils/100 WBC (Bld) 67.7 % Normal 40.0 - 80.0 [facility] Comment on above: Order Comment: no fa x number Performed By: #### C BCDF #### [address] [address] NUCLEATED RBC 0.2 /[address] [facility] Comment on above: Order Comment: no fa x number Performed By: #### C BCDF #### [address] [address] Platelets (Bld) [#/Vol] 177 10*3/uL Normal 150 - 450 [facility] Comment on above: Order Comment: no fa x number Performed By: #### C BCDF #### [address] [address] RBC 4.81 x10E12/L Normal 4.50 - 5.90 [facility] Comment on above: Order Comment: no fa x number Performed By: #### C BCDF #### [address] [address] WBC (Bld) [#/Vol] 8.5 10*3/uL Normal 4.4 - 11.3 [facility] Comment on above: Order Comment: no fa x number Performed By: #### C BCDF #### [address] [address] COMPREHENSIVE PANELon 2020 Albumin [Mass/Vol] 4.1 g/dL Normal 3.4 - 5.0 [facility] Comment on above: Order Comment: no fa x number Performed By: #### C MP #### [address] [address] ALP [Catalytic activity/Vol] 35 U/L Normal 33 - 136 [facility] Comment on above: Order Comment: no fa x number Performed By: #### C MP #### [address] [address] ALT [Catalytic activity/Vol] 11 U/L Normal 10 - 52 [facility] Comment on above: Order Comment: no fa x number Result Comment: Pura ents treated with Sulfasalazine may generate falsely decreased results for ALT. Performed By: #### C MP #### [address] [address] Anion gap [Moles/Vol] 10 mmol/L Normal 10 - 20 [facility] Comment on above: Order Comment: no fa x number Performed By: #### C MP #### [address] [address] AST [Catalytic activity/Vol] 17 U/L Normal 9 - 39 [facility] Comment on above: Order Comment: no fa x number Performed By: #### C MP #### [address] [address] Bilirubin [Mass/Vol] 0.7 mg/dL Normal 0.0 - 1.2 [facility] Comment on above: Order Comment: no fa x number Performed By: #### C MP #### [address] [address] Calcium [Mass/Vol] 9.6 mg/dL Normal 8.6 - 10.3 [facility] Comment on above: Order Comment: no fa x number Performed By: #### C MP #### [address] [address] Chloride [Moles/Vol] 106 mmol/L Normal 98 - 107 [facility] Comment on above: Order Comment: no fa x number Performed By: #### C MP #### [address] [address] Creatinine [Mass/Vol] 1.23 mg/dL Normal 0.50 - 1.30 [facility] Comment on above: Order Comment: no fa x number Performed By: #### C MP #### [address] [address] GFR- AM. 69 mL/min/1.73m2 Normal >60 [facility] Comment on above: Order Comment: no fa x number Result Comment: CALC ULATIONS OF ESTIMATED GFR ARE PERFORMED USING THE MDRD STUDY EQUATION FOR THE IDMS-TRACEABLE CREATININE METHODS. CLIN CHEM 2007;53:766-72 Performed By: #### C MP #### [address] [address] GFR-NON AM. 57 mL/min/1.73m2 Abnormal >60 [facility] Comment on above: Order Comment: no fa x number Performed By: #### C MP #### [address] [address] Glucose [Mass/Vol] 97 mg/dL Normal 74 - 99 [facility] Comment on above: Order Comment: no fa x number Performed By: #### C MP #### [address] [address] HCO3 (Bld) [Moles/Vol] 29 mmol/L Normal 21 - 32 [facility] Comment on above: Order Comment: no fa x number Performed By: #### C MP #### [address] [address] Potassium [Moles/Vol] 4.1 mmol/L Normal 3.5 - 5.3 [facility] Comment on above: Order Comment: no fa x number Performed By: #### C MP #### [address] [address] Protein [Mass/Vol] 6.2 g/dL Low 6.4 - 8.2 [facility] Comment on above: Order Comment: no fa x number Performed By: #### C MP #### [address] [address] Sodium [Moles/Vol] 141 mmol/L Normal 136 - 145 [facility] Comment on above: Order Comment: no fa x number Performed By: #### C MP #### [address] [address] Urea nitrogen [Mass/Vol] 16 mg/dL Normal 6 - 23 [facility] Comment on above: Order Comment: no fa x number Performed By: #### C MP #### [address] [address] HEMOGLOBIN A1Con 07-01-2020 Glucose [Mass/Vol] 128 mg/dL Normal [facility] Comment on above: Order Comment: no fa x number Performed By: #### H BA1E #### [address] [address] HbA1c (Bld) [Mass fraction] 6.1 % Normal [facility] Comment on above: Order Comment: no fa x number Result Comment: Diag nosis of Diabetes-Adults Non-Diabetic: < or = 5.6% Increased risk for developing diabetes: 5.7-6.4% Diagnostic of diabetes: > or = 6.5% . Monitoring of Diabetes Age (y) Therapeutic Goal (%) Adults: >18 <7.0 Pediatrics: 13-18 <7.5 7-12 <8.0 0- 6 7.5-8.5 [employer]. Diabetes Care 33(S1), Mar 2009. Performed By: #### H BA1E #### [address] [address] LIPID PANEL (CORONARY RISK 2 )on 07-01-2020 Cholesterol [Mass/Vol] 120 mg/dL Normal 0 - 199 [facility] Comment on above: Order Comment: no fa x number Result Comment: . AGE DESIRABLE BORDERLINE HIGH HIGH 0-19 Y 0 - 169 170 - 199 >/= 200 20-24 Y 0 - 189 190 - 224 >/= 225 >24 Y 0 - 199 200 - 239 >/= 240 All ranges are based on fasting samples. Specific therapeutic targets will vary based on patient-specific cardiac risk. . Pediatric guidelines reference:Pediatrics 2011, 128(S5). Adult guidelines reference: NCEP ATPIII Guidelines, KIRSTY 2001, 258:2486-97 . Venipuncture immediately after or during the administration of Metamizole may lead to falsely low results. Testing should be performed immediately prior to Metamizole dosing. Performed By: #### L IPID #### [address] [address] Cholesterol in HDL [Mass/Vol] 38.0 mg/dL Abnormal [facility] Comment on above: Order Comment: no fa x number Result Comment: . AGE VERY LOW LOW NORMAL HIGH 0-19 Y < 35 < 40 40-45 ---- 20-24 Y ---- < 40 >45 ---- >24 Y ---- < 40 40-60 >60 . Performed By: #### L IPID #### [address] [address] Cholesterol in LDL [Mass/Vol] 64 mg/dL Normal 0 - 99 [facility] Comment on above: Order Comment: no fa x number Result Comment: . NEAR BORD AGE DESIRABLE OPTIMAL HIGH HIGH VERY HIGH 0-19 Y 0 - 109 --- 110-129 >/= 130 ---- 20-24 Y 0 - 119 --- 120-159 >/= 160 ---- >24 Y 0 - 99 100-129 130-159 160-189 >/=190 . Performed By: #### L IPID #### [address] [address] Cholesterol in VLDL [Mass/Vol] 18 mg/dL Normal 0 - 40 [facility] Comment on above: Order Comment: no fa x number Performed By: #### L IPID #### [address] [address] Cholesterol.total/Chol esterol in HDL [Mass ratio] 3.2 {ratio} Normal [facility] Comment on above: Order Comment: no fa x number Result Comment: REF VALUES DESIRABLE < 3.4 HIGH RISK > 5.0 Performed By: #### L IPID #### [address] [address] Triglyceride [Mass/Vol] 91 mg/dL Normal 0 - 149 [facility] Comment on above: Order Comment: no fa x number Result Comment: . AGE DESIRABLE BORDERLINE HIGH HIGH VERY HIGH 0 D-90 D 19 - 174 ---- ---- ---- 91 D- 9 Y 0 - 74 75 - 99 >/= 100 ---- 10-19 Y 0 - 89 90 - 129 >/= 130 ---- 20-24 Y 0 - 114 115 - 149 >/= 150 ---- >24 Y 0 - 149 150 - 199 200- 499 >/= 500 . Venipuncture immediately after or during the administration of Metamizole may lead to falsely low results. Testing should be performed immediately prior to Metamizole dosing. Performed By: #### L IPID #### [place] [id number] PROSTATE SPECIFIC AGon 07-01 Prostate specific Ag [Mass/Vol] 2.75 ng/mL Normal 0.00 - 4.00 [facility] Comment on above: Order Comment: no fa x number Result Comment: The FDA requires that the method used for PSA assay be reported to the physician. Values obtained with different assay methods must not be used interchangeably. This test was performed at [facility] using the [employer] PSA assay is a two-site immunoenzymatic sandwich assay. The assay is approved for measurement of prostate-specific antigen (PSA)in serum and may be used in conjunction with a digital rectal examination in men 50 years and older as an aid in detection of prostate cancer. 2-Mhbmo-neftbefdl inhibitors (e.g. Proscar, Finasteride, Avodart, Dutasteride and Radha) for the treatment of BPH have been shown to lower PSA levels by an average of 50% after 6 months of treatment. Performed By: #### P SA #### [place] [address] COMPREHENSIVE PANELon 2019 Albumin [Mass/Vol] 4.1 g/dL Normal 3.4 - 5.0 [facility] Comment on above: Performed By: #### C MP #### [place] [address] ALP [Catalytic activity/Vol] 37 U/L Normal 33 - 136 [facility] Comment on above: Performed By: #### C MP #### [place] [address] ALT [Catalytic activity/Vol] 15 U/L Normal 10 - 52 [facility] Comment on above: Result Comment: Pura ents treated with Sulfasalazine may generate falsely decreased results for ALT. Performed By: #### C MP #### [place] [address] Anion gap [Moles/Vol] 10 mmol/L Normal 10 - 20 [facility] Comment on above: Performed By: #### C MP #### [place] [id number] AST [Catalytic activity/Vol] 19 U/L Normal 9 - 39 [facility] Comment on above: Performed By: #### C MP #### [address] [address] Bilirubin [Mass/Vol] 0.8 mg/dL Normal 0.0 - 1.2 [facility] Comment on above: Performed By: #### C MP #### [address] [address] Calcium [Mass/Vol] 9.3 mg/dL Normal 8.6 - 10.3 [facility] Comment on above: Performed By: #### C MP #### [address] [address] Chloride [Moles/Vol] 105 mmol/L Normal 98 - 107 [facility] Comment on above: Performed By: #### C MP #### [address] [address] Creatinine [Mass/Vol] 1.26 mg/dL Normal 0.50 - 1.30 [facility] Comment on above: Performed By: #### C MP #### [address] [address] GFR- AM. 67 mL/min/1.73m2 Normal >60 [facility] Comment on above: Result Comment: CALC ULATIONS OF ESTIMATED GFR ARE PERFORMED USING THE MDRD STUDY EQUATION FOR THE IDMS-TRACEABLE CREATININE METHODS. CLIN CHEM 2007;53:766-72 Performed By: #### C MP #### [address] [address] GFR-NON AM. 55 mL/min/1.73m2 Abnormal >60 [facility] Comment on above: Performed By: #### C MP #### [address] [address] Glucose [Mass/Vol] 105 mg/dL High 74 - 99 [facility] Comment on above: Performed By: #### C MP #### [address] [address] HCO3 (Bld) [Moles/Vol] 29 mmol/L Normal 21 - 32 [facility] Comment on above: Performed By: #### C MP #### [address] [address] Potassium [Moles/Vol] 4.5 mmol/L Normal 3.5 - 5.3 [facility] Comment on above: Performed By: #### C MP #### [address] [address] Protein [Mass/Vol] 6.4 g/dL Normal 6.4 - 8.2 [facility] Comment on above: Performed By: #### C MP #### [address] [address] Sodium [Moles/Vol] 139 mmol/L Normal 136 - 145 [facility] Comment on above: Performed By: #### C MP #### [address] [address] Urea nitrogen [Mass/Vol] 18 mg/dL Normal 6 - 23 [facility] Comment on above: Performed By: #### C MP #### [address] [address] HEMOGLOBIN A1Con 12-18-2019 Glucose [Mass/Vol] 126 mg/dL Normal [facility] Comment on above: Performed By: #### H BA1E #### [address] [address] HbA1c (Bld) [Mass fraction] 6.0 % Normal [facility] Comment on above: Result Comment: Diag nosis of Diabetes-Adults Non-Diabetic: < or = 5.6% Increased risk for developing diabetes: 5.7-6.4% Diagnostic of diabetes: > or = 6.5% . Monitoring of Diabetes Age (y) Therapeutic Goal (%) Adults: >18 <7.0 Pediatrics: 13-18 <7.5 7-12 <8.0 0- 6 7.5-8.5 [employer]. Diabetes Care 33(S1), Mar 2009. Performed By: #### H BA1E #### [address] [address] LIPID PANEL (CORONARY RISK 2 )on 12-18-2019 Cholesterol [Mass/Vol] 122 mg/dL Normal 0 - 199 [facility] Comment on above: Result Comment: . AGE DESIRABLE BORDERLINE HIGH HIGH 0-19 Y 0 - 169 170 - 199 >/= 200 20-24 Y 0 - 189 190 - 224 >/= 225 >24 Y 0 - 199 200 - 239 >/= 240 All ranges are based on fasting samples. Specific therapeutic targets will vary based on patient-specific cardiac risk. . Pediatric guidelines reference:Pediatrics 2011, 128(S5). Adult guidelines reference: NCEP ATPIII Guidelines, KIRSTY 2001, 258:2486-97 . Venipuncture immediately after or during the administration of Metamizole may lead to falsely low results. Testing should be performed immediately prior to Metamizole dosing. Performed By: #### L IPID #### [address] [address] Cholesterol in HDL [Mass/Vol] 38.0 mg/dL Abnormal [facility] Comment on above: Result Comment: . AGE VERY LOW LOW NORMAL HIGH 0-19 Y < 35 < 40 40-45 ---- 20-24 Y ---- < 40 >45 ---- >24 Y ---- < 40 40-60 >60 . Performed By: #### L IPID #### [address] [address] Cholesterol in LDL [Mass/Vol] 63 mg/dL Normal 0 - 99 [facility] Comment on above: Result Comment: . NEAR BORD AGE DESIRABLE OPTIMAL HIGH HIGH VERY HIGH 0-19 Y 0 - 109 --- 110-129 >/= 130 ---- 20-24 Y 0 - 119 --- 120-159 >/= 160 ---- >24 Y 0 - 99 100-129 130-159 160-189 >/=190 . Performed By: #### L IPID #### [address] [address] Cholesterol in VLDL [Mass/Vol] 21 mg/dL Normal 0 - 40 [facility] Comment on above: Performed By: #### L IPID #### [address] [address] Cholesterol.total/Chol esterol in HDL [Mass ratio] 3.2 {ratio} Normal [facility] Comment on above: Result Comment: REF VALUES DESIRABLE < 3.4 HIGH RISK > 5.0 Performed By: #### L IPID #### [address] [address] Triglyceride [Mass/Vol] 104 mg/dL Normal 0 - 149 [facility] Comment on above: Result Comment: . AGE DESIRABLE BORDERLINE HIGH HIGH VERY HIGH 0 D-90 D 19 - 174 ---- ---- ---- 91 D- 9 Y 0 - 74 75 - 99 >/= 100 ---- 10-19 Y 0 - 89 90 - 129 >/= 130 ---- 20-24 Y 0 - 114 115 - 149 >/= 150 ---- >24 Y 0 - 149 150 - 199 200- 499 >/= 500 . Venipuncture immediately after or during the administration of Metamizole may lead to falsely low results. Testing should be performed immediately prior to Metamizole dosing. Performed By: #### L IPID #### [address] [address] Auto Diffon 06-20-2018 Basophils #/vol (Bld) 0.1 E3/mcL Normal 0.0-0.2 [facility] Comment on above: Order Comment: Order Added by Discern Expert. Performed By: #### 3 [id number] #### KRISTEN [employer] [address] [place] [address] Basophils/100 WBC (Bld) 1.4 % Normal 0.0-2.0 [facility] Comment on above: Order Comment: Order Added by Discern Expert. Performed By: #### 3 [id number] #### KRISTEN [employer] [address] [place] [address] Eos Absolute 0.4 E3/mcL Normal 0.0-0.7 [facility] Comment on above: Order Comment: Order Added by Discern Expert. Performed By: #### 3 [id number] #### KRISTEN [employer] [address] [place] [address] Eosinophils/100 WBC (Bld) 5.4 % Normal 0.0-11.0 [facility] Comment on above: Order Comment: Order Added by Discern Expert. Performed By: #### 3 [id number] #### [place] [id number] [place] [address] Lymphocytes #/vol (Bld) 1.7 E3/mcL Normal 1.2-3.4 [facility] Comment on above: Order Comment: Order Added by Discern Expert. Performed By: #### 3 [id number] #### KRISTEN [place] [address] [place] [address] Lymphocytes/100 WBC (Bld) 23.8 % Normal 20.0-55.0 [facility] Comment on above: Order Comment: Order Added by Discern Expert. Performed By: #### 3 [id number] #### [address] [address] [place] Absolute 0.4 E3/mcL Normal 0.0-0.7 [facility] Comment on above: Order Comment: Order Added by Discern Expert. Performed By: #### 3 [id number] #### [address] [address] Monocytes/100 WBC (Bld) 6.3 % Normal 0.0-10.0 [facility] Comment on above: Order Comment: Order Added by Discern Expert. Performed By: #### 3 [id number] #### [place] [address] Neutro Absolute 4.5 E3/mcL Normal 1.4-6.5 [facility] Comment on above: Order Comment: Order Added by Discern Expert. Performed By: #### 3 [id number] #### KRISTEN [place] [id number] Neutro Auto 63.1 % Normal 37.0-75.0 [facility] Comment on above: Order Comment: Order Added by Discern Expert. Performed By: #### 3 [id number] #### [address] [place] [address] CBC w/ Auto Diffon 9 Erythrocyte distribution width Ratio (RBC) 13.6 % Normal 11.5-14.5 [facility] Comment on above: Performed By: #### 3 [id number] #### KRISTEN [place] [id number] Hematocrit Volume Fraction (Bld) 42.5 % Normal 42.0-52.0 [facility] Comment on above: Performed By: #### 3 [id number] #### KRISTEN [employer] [address] [place] [address] Hemoglobin mass conc (Bld) 14.2 g/dL Normal 13.5-18.0 [facility] Comment on above: Performed By: #### 3 [id number] #### KRISTEN [employer] [address] [place] [address] MCH Entitic mass (RBC) 30.2 pg Normal 27.0-31.0 [facility] Comment on above: Performed By: #### 3 [id number] #### KRISTEN [employer] [address] [place] [address] MCHC mass conc (RBC) 33.4 g/dL Normal 33.0-37.0 [facility] Comment on above: Performed By: #### 3 [id number] #### KRISTEN [employer] [address] [place] [id number] MCV Entitic volume (RBC) 90.4 fL Normal 78.0-100.0 [facility] Comment on above: Performed By: #### 3 [id number] #### KRISTEN [employer] [address] [place] [address] Platelet mean volume Entitic volume (Bld) 8.4 fL Normal 7.4-11.0 [facility] Comment on above: Performed By: #### 3 [id number] #### KRISTEN [employer] [address] [place] [address] Platelets #/vol (Bld) 158 E3/mcL Normal 130-400 [facility] Comment on above: Performed By: #### 3 [id number] #### KRISTEN [employer] [address] [place] [address] RBC #/vol (Bld) 4.70 E6/mcL Normal 3.90-6.10 [facility] Comment on above: Performed By: #### 3 [id number] #### KRISTEN [employer] [address] [place] [address] WBC #/vol (Bld) 7.1 E3/mcL Normal 3.6-11.0 [facility] Comment on above: Performed By: #### 3 [id number] #### KRISTEN [employer] [address] [place] [address] CMPon 06-20-2018 Albumin mass conc 4.0 g/dL Normal 3.4-5.0 [facility] Comment on above: Performed By: #### 3 [id number] #### KRISTEN [employer] [address] [place] [address] Albumin/Globulin mass ratio 1.8 {ratio} Normal 1.1-1.9 [facility] Comment on above: Performed By: #### 3 [id number] #### KRISTEN [employer] [address] [place] [address] Alk Phos 41 Int._Unit/L Normal 33-136 [facility] Comment on above: Performed By: #### 3 [id number] #### KRISTEN [employer] [address] [place] [address] ALT enzyme act/vol 14 Int._Unit/L Normal 10-52 [facility] Comment on above: Performed By: #### 3 [id number] #### KRISTEN [employer] [address] [place] [address] Anion gap molar conc 10 mmol/L Normal 10-20 [facility] Comment on above: Performed By: #### 3 [id number] #### KRISTEN [employer] [address] [place] [address] AST enzyme act/vol 19 Int._Unit/L Normal 9-39 [facility] Comment on above: Performed By: #### 3 [id number] #### KRISTEN [employer] [address] [place] [address] Bili Total 0.69 mg/dL Normal 0.00-1.20 [facility] Comment on above: Performed By: #### 3 [id number] #### KRISTEN [employer] [address] [place] [address] Calcium mass conc 9.1 mg/dL Normal 8.6-10.3 [facility] Comment on above: Performed By: #### 3 [id number] #### KRISTEN [employer] [address] [place] [address] Chloride molar conc 107 mmol/L Normal 98-107 [facility] Comment on above: Performed By: #### 3 [id number] #### KRISTEN [employer] [address] [place] [address] CO2 molar conc 28.0 mmol/L Normal 21.0-32.0 [facility] Comment on above: Performed By: #### 3 [id number] #### KRISTEN [employer] [address] [place] [address] Creatinine mass conc 1.3 mg/dL Normal 0.5-1.3 [facility] Comment on above: Performed By: #### 3 [id number] #### KRISTEN [employer] [address] [place] [address] Globulin mass conc (S) 2.0 g/dL Normal 2.0-4.0 [facility] Comment on above: Performed By: #### 3 [id number] #### KRISTEN [employer] [address] [place] [address] Glucose mass conc 99 mg/dL Normal 70-99 [facility] Comment on above: Performed By: #### 3 [id number] #### KRISTEN [employer] [address] [place] [address] Potassium molar conc 4.1 mmol/L Normal 3.5-5.3 [facility] Comment on above: Performed By: #### 3 [id number] #### KRISTEN [employer] [address] [place] [address] Protein mass conc 6.2 g/dL Low 6.4-8.2 [facility] Comment on above: Performed By: #### 3 [id number] #### KRISTEN [employer] [address] [place] [address] Sodium molar conc 141 mmol/L Normal 136-145 [facility] Comment on above: Performed By: #### 3 [id number] #### KRISTEN [employer] [address] [place] [address] Urea nitrogen mass conc 23 mg/dL Normal 6-23 [facility] Comment on above: Performed By: #### 3 [id number] #### KRISTEN [employer] [address] [place] [address] Urea nitrogen/Creatinine mass ratio 17.7 ratio Normal 5.4-30.0 [facility] Comment on above: Performed By: #### 3 [id number] #### KRISTEN [employer] [address] [place] [address] [id number] 06-20-2018 Hemoglobin A1c/Hemoglobin.total mass fraction (Bld) 5.9 % Normal 4.0-6.3 [facility] Comment on above: Performed By: #### 3 [id number] #### KRISTEN [employer] [address] [place] [address] Lipid Profileon 06-20-2018 Cholesterol in HDL mass conc 36 mg/dL Low 40-60 [facility] Comment on above: Performed By: #### 3 [id number] #### KRISTEN [employer] [address] [place] [address] Cholesterol in LDL mass conc 60 mg/dL Normal 0-130 [facility] Comment on above: Performed By: #### 3 [id number] #### KRISTEN [employer] [address] [place] [address] Cholesterol in VLDL mass conc 22 mg/dL Normal 0-40 [facility] Comment on above: Performed By: #### 3 [id number] #### KRISTEN [employer] [address] [place] [address] Cholesterol mass conc 118 mg/dL Normal 0-199 [facility] Comment on above: Performed By: #### 3 [id number] #### KRISTEN [employer] [address] [place] [address] Triglyceride mass conc 108 mg/dL Normal 0-149 [facility] Comment on above: Result Comment: AGE DESIRABLE BORDERLINE HIGH 91 D - 9 Y 0 - 74 75 - 99 > 100 10 - 19 Y 0 - 89 90 - 129 > 130 20 - 24 Y 0 - 114 115 - 149 > 150 > 25 0 - 149 150 - 199 200 - 499 Performed By: #### 3 [id number] #### KRISTEN [employer] [address] [place] [address] eGFRon 06-20-2018 GFR/1.73 sq M predicted among non-blacks MDRD vol rate/area (S/P/Bld) 55 mL/min/1.73 m2 Normal [facility] Comment on above: Order Comment: Order added by Discern Expert. Performed By: #### 3 [id number] #### KRISTEN [employer] [address] [place] [address] GFR/1.73 sq M predicted among non-blacks MDRD vol rate/area (S/P/Bld) mL/min/{1.73_m2} [facility] Comment on above: Order Comment: Order added by Discern Expert. Performed By: #### 3 [id number] #### [facility] [employer] [address] [place] [address] Calculus Analysison 01-24-20 Ammonium Acid Urate Not Performed Normal [facility] Comment on above: Performed By: #### 3 [id number] #### [facility] [facility] [address] [place] [address] [place] Hydrogen Phos Not Performed [facility] Comment on above: Performed By: #### 3 [id number] #### [facility] [address] [place] [address] [place] Oxalate, Dihydrate Not Performed [facility] Comment on above: Performed By: #### 3 [id number] #### [facility] [address] [place] [address] [place] Oxalate, Monohydr 95 % [facility] Comment on above: Performed By: #### 3 [id number] #### [facility] [address] [place] [address] Calcium Bilirubinate Not Performed [facility] Comment on above: Performed By: #### 3 [id number] #### [facility] [address] [place] [address] Calcium Carbonate Not Performed [facility] Comment on above: Performed By: #### 3 [id number] #### [facility] [address] [place] [address] Calcium Phos 05 % [facility] Comment on above: Performed By: #### 3 [id number] #### [facility] [address] [place] [address] Cellular Material Not Performed [facility] Comment on above: Performed By: #### 3 [id number] #### [facility] [address] [place] [address] Cholesterol mass conc Not Performed [facility] Comment on above: Performed By: #### 3 [id number] #### [facility] [address] [place] [address] Color Nom (U) Brown [facility] Comment on above: Performed By: #### 3 [id number] #### [facility] [address] [place] [address] Comment 1 Not Performed [facility] Comment on above: Performed By: #### 3 [id number] #### [facility] [address] [place] [address] Comment 2 Not Performed [facility] Comment on above: Performed By: #### 3 [id number] #### [facility] [address] [place] [address] Comment 3 Comment [facility] Comment on above: Result Comment: Physician questions regarding Calculi Analysis contact [facility] at: [phone]. Performed By: #### 3 [id number] #### [facility] [address] [place] [address] Composition Comment [facility] Comment on above: Result Comment: Percentage (Represents the % composition) Performed By: #### 3 [id number] #### [facility] [address] [place] [address] Cystine Not Performed [facility] Comment on above: Performed By: #### 3 [id number] #### [facility] [address] [place] [address] Disclaimer: Comment [facility] Comment on above: Result Comment: This test was developed and its performance characteristics determined by [facility]. It has not been cleared or approved by the Food and Drug Administration. Performed At: [address] [id number] Mickey Gupta MD Ph:[phone] Performed By: #### 3 [id number] #### [facility] [address] [place] [address] Dried Blood Not Performed [facility] Comment on above: Performed By: #### 3 [id number] #### [facility] [address] [place] [id number] Mag Christ Phos Not Performed [facility] Comment on above: Performed By: #### 3 [id number] #### [facility] [address] [place] [address] Newberyite Not Performed [facility] Comment on above: Performed By: #### 3 [id number] #### [facility] [address] [place] [id number] Nidus No Nidus visualized [facility] Comment on above: Performed By: #### 3 [id number] #### [facility] [address] [place] [address] Note: Comment [facility] Comment on above: Result Comment: Calculi report without photograph will follow via computer, mail, or machine maintenance servicer delivery. Performed By: #### 3 [id number] #### [facility] [address] [place] [address] Shell Not Performed [facility] Comment on above: Performed By: #### 3 [id number] #### [facility] [address] [place] [address] Size 5x3x2 [facility] Comment on above: Performed By: #### 3 [id number] #### [facility] [address] [place] [address] Sodium molar conc Not Performed [facility] Comment on above: Performed By: #### 3 [id number] #### [facility] [address] [place] [address] Surface Crystals Not Performed [facility] Comment on above: Performed By: #### 3 [id number] #### [facility] [address] [place] [address] Triamterene Not Performed [facility] Comment on above: Performed By: #### 3 [id number] #### [facility] [address] [place] [address] Urate mass conc Not Performed [facility] Comment on above: Performed By: #### 3 [id number] #### [facility] [address] [place] [address] Uric Acid Dihydrate Not Performed [facility] Comment on above: Performed By: #### 3 [id number] #### [facility] [address] [place] [id number] XR Abdomen 1 Viewon 10-30-20 18 XR Abdomen 1 View Exam Date/Time: 01/13/2018 13:30 EDT Reason for Exam: Kidney stone Report STUDY: XR Abdomen 1 View; 01/13/2018 1:30 pm INDICATION: Kidney stone. COMPARISON: None. ACCESSION NUMBER(S): [id number] ORDERING CLINICIAN: Edson Mcduffie FINDINGS: 2 supine AP radiographs of the abdomen were obtained. Surgical clips are seen over the right upper quadrant, consistent with prior cholecystectomy. The right ureteral calculus seen on recent CT dated 01/05/2018 is not clearly seen on this examination. There is a nonobstructive bowel gas pattern present. Free intraperitoneal air and air-fluid levels cannot be excluded without upright or decubitus images. IMPRESSION: Nonobstructive bowel gas pattern. FINAL REPORT Dictated: 01/14/2018 11:41 am Hunter Jon MD Signed (Electronic Signature): 01/14/2018 11:41 am Signed by: Hunter Jon MD Technologist: MGW Normal [facility] PSA Totalon 01-10-2018 PSA Total 2.84 ng/mL Normal [facility] Comment on above: Result Comment: AGE- SPECIFIC REFERENCE RANGES FOR SERUM PSA REFERENCE RANGE NG/ML AGE ASIANS BLACKS WHITE 40-49 0-2 0-2 0-2.5 50-59 0-3 0-4 0-3.5 60-69 0-4 0-4.5 0-4.5 70-79 0-5 0-5.5 0-6.5 PSA INCREASES WITH AGE, RACE, AND EJACULATION WITHIN 48 HRS. [facility] VOL24,NO.2, , PG.339 Performed By: #### 1 [id number] #### [facility] [address] [place] [address] Auto Diffon 01-08-2018 Basophils #/vol (Bld) 0.1 E3/mcL Normal 0.0-0.2 [facility] Comment on above: Order Comment: Order added by Discern Expert. Performed By: #### 1 [id number] #### [facility] [address] [place] [address] Basophils/100 WBC (Bld) 1.0 % Normal 0.0-2.0 [facility] Comment on above: Order Comment: Order added by Rajesh Expert. Performed By: #### 1 [id number] #### [facility] [address] [place] [address] Eos Absolute 0.3 E3/mcL Normal 0.0-0.7 [facility] Comment on above: Order Comment: Order added by Discern Expert. Performed By: #### 1 [id number] #### [facility] [address] [place] [address] Eosinophils/100 WBC (Bld) 4.8 % Normal 0.0-11.0 [facility] Comment on above: Order Comment: Order added by Rajesh Expert. Performed By: #### 1 [id number] #### [facility] [place] [address] Lymphocytes #/vol (Bld) 1.4 E3/mcL Normal 1.2-3.4 [facility] Comment on above: Order Comment: Order added by Rajesh Expert. Performed By: #### 1 [id number] #### [facility] [address] [place] [address] Lymphocytes/100 WBC (Bld) 19.6 % Low 20.0-55.0 [facility] Comment on above: Order Comment: Order added by Rajesh Expert. Performed By: #### 1 [id number] #### [facility] [address] [place] [address] [place] Absolute 0.5 E3/mcL Normal 0.0-0.7 [facility] Comment on above: Order Comment: Order added by Rajesh Expert. Performed By: #### 1 [id number] #### [facility] [address] [place] [address] Monocytes/100 WBC (Bld) 7.4 % Normal 0.0-10.0 [facility] Comment on above: Order Comment: Order added by Rajesh Expert. Performed By: #### 1 [id number] #### [facility] [address] [place] [address] Neutro Absolute 4.6 E3/mcL Normal 1.4-6.5 [facility] Comment on above: Order Comment: Order added by Rajesh Expert. Performed By: #### 1 [id number] #### [facility] [address] [place] [address] Neutro Auto 67.2 % Normal 37.0-75.0 [facility] Comment on above: Order Comment: Order added by Discern Expert. Performed By: #### 1 [id number] #### [facility] [address] [place] [address] CBC w/ Auto Diffon 8 Erythrocyte distribution width Ratio (RBC) 13.8 % Normal 11.5-14.5 [facility] Comment on above: Performed By: #### 1 [id number] #### [facility] [address] [place] [address] Hematocrit Volume Fraction (Bld) 39.7 % Low 42.0-52.0 [facility] Comment on above: Performed By: #### 1 [id number] #### [facility] [address] [place] [address] Hemoglobin mass conc (Bld) 13.4 g/dL Low 13.5-18.0 [facility] Comment on above: Performed By: #### 1 [id number] #### [facility] [address] [place] [address] MCH Entitic mass (RBC) 30.6 pg Normal 27.0-31.0 [facility] Comment on above: Performed By: #### 1 [id number] #### [facility] [address] [place] [address] MCHC mass conc (RBC) 33.8 g/dL Normal 33.0-37.0 [facility] Comment on above: Performed By: #### 1 [id number] #### [facility] [address] [place] [address] MCV Entitic volume (RBC) 90.6 fL Normal 78.0-100.0 [facility] Comment on above: Performed By: #### 1 [id number] #### [facility] [address] [place] [address] Platelet mean volume Entitic volume (Bld) 8.7 fL Normal 7.4-11.0 [facility] Comment on above: Performed By: #### 1 [id number] #### [facility] [address] [place] [address] Platelets #/vol (Bld) 151 E3/mcL Normal 130-400 [facility] Comment on above: Performed By: #### 1 [id number] #### [facility] [place] [address] RBC #/vol (Bld) 4.39 E6/mcL Normal 3.90-6.10 [facility] Comment on above: Performed By: #### 1 [id number] #### [facility] De LeonShahriar [facility] [place] [address] WBC #/vol (Bld) 6.9 E3/mcL Normal 3.6-11.0 [facility] Comment on above: Performed By: #### 1 [id number] #### [facility] Emerson [facility] [place] [address] CMPon 01-08-2018 Anion gap molar conc 11 mmol/L Normal 10-20 [facility] Comment on above: Performed By: #### 1 [id number] #### [facility] De LeonShahri[facility] [address] [place] [address] Albumin mass conc 3.9 g/dL Normal 3.4-5.0 [facility] Comment on above: Performed By: #### 1 [id number] #### [facility] De LeonShahri[facility] [place] [address] Albumin/Globulin mass ratio 1.8 {ratio} Normal 1.1-1.9 [facility] Comment on above: Performed By: #### 1 [id number] #### K[facility]STEN Ki [facility] [place] [address] Alk Phos 40 Int._Unit/L Normal 33-136 [facility] Comment on above: Performed By: #### 1 [id number] #### [facility] [address] [place] [address] ALT enzyme act/vol 9 Int._Unit/L Low 10-52 [facility] Comment on above: Performed By: #### 1 [id number] #### [facility] [address] [place] [address] AST enzyme act/vol 16 Int._Unit/L Normal 9-39 [facility] Comment on above: Performed By: #### 1 [id number] #### [facility] [address] [place] [address] Bili Total 0.7 mg/dL Normal 0.0-1.2 [facility] Comment on above: Performed By: #### 1 [id number] #### [facility] [address] [place] [address] Calcium mass conc 9.1 mg/dL Normal 8.6-10.3 [facility] Comment on above: Performed By: #### 1 [id number] #### [facility] [address] [place] [address] Chloride molar conc 105 mmol/L Normal 98-107 [facility] Comment on above: Performed By: #### 1 [id number] #### [facility] [address] [place] [address] CO2 molar conc 28.0 mmol/L Normal 21.0-32.0 [facility] Comment on above: Performed By: #### 1 [id number] #### [facility] [address] [place] [address] Creatinine mass conc 2.3 mg/dL High 0.6-1.3 [facility] Comment on above: Performed By: #### 1 [id number] #### [facility] [address] [place] [address] Globulin mass conc (S) 2.0 g/dL Normal 2.0-4.0 [facility] Comment on above: Performed By: #### 1 [id number] #### [facility] [address] [place] [address] Glucose mass conc 87 mg/dL Normal 70-99 [facility] Comment on above: Performed By: #### 1 [id number] #### [facility] [address] [place] [address] Potassium molar conc 4.7 mmol/L Normal 3.5-5.3 [facility] Comment on above: Performed By: #### 1 [id number] #### [facility] [address] [place] [address] Protein mass conc 6.1 g/dL Low 6.4-8.2 [facility] Comment on above: Performed By: #### 1 [id number] #### [facility] [address] [place] [address] Sodium molar conc 139 mmol/L Normal 136-145 [facility] Comment on above: Performed By: #### 1 [id number] #### [facility] [address] [place] [address] Urea nitrogen mass conc 27 mg/dL High 6-23 [facility] Comment on above: Performed By: #### 1 [id number] #### [facility] [address] [place] [address] Urea nitrogen/Creatinine mass ratio 11.7 ratio Normal 5.4-30.0 [facility] Comment on above: Performed By: #### 1 [id number] #### [facility] [address] [place] [address] [id number] 01-08-2018 Hemoglobin A1c/Hemoglobin.total mass fraction (Bld) 5.9 % Normal 4.0-6.3 [facility] Comment on above: Performed By: #### 1 [id number] #### [facility] [address] [place] [address] Lipid Profileon 01-08-2018 Cholesterol in HDL mass conc 35 mg/dL Normal [facility] Comment on above: Performed By: #### 1 [id number] #### [facility] [address] [place] [address] Cholesterol in LDL mass conc 59 mg/dL Normal 0-130 [facility] Comment on above: Result Comment: <100 OPTIMAL 100-129 NEAR / ABOVE OPTIMAL 130-159 BORDERLINE HIGH 160-189 HIGH >190 VERY HIGH CALC LDL NOT VALID WHEN TRIGLYCERIDE IS >400 MG/DL Performed By: #### 1 [id number] #### [facility] [address] [place] [address] Cholesterol in VLDL mass conc 18 mg/dL Normal [facility] Comment on above: Performed By: #### 1 [id number] #### [facility] [address] [place] [address] Cholesterol mass conc 112 mg/dL Low 120-200 [facility] Comment on above: Result Comment: TOTA L CHOLEESTEROL: <200 NORMAL 200 - 239 BORDERLINE HIGH >240 HIGH Performed By: #### 1 [id number] #### [facility] [address] [place] [address] Triglyceride mass conc 92 mg/dL Normal 0-150 [facility] Comment on above: Result Comment: <150 NORMAL 150-199 BORDERLINE HIGH 200-499 HIGH >500 VERY HIGH Performed By: #### 1 [id number] #### [facility] [address] [place], [place] [address] eGFRon 01-08-2018 GFR/1.73 sq M predicted among non-blacks MDRD vol rate/area (S/P/Bld) 34 mL/min/1.73 m2 Normal [facility] Comment on above: Order Comment: Order added by Discern Expert. Performed By: #### 1 [id number] #### [facility] [address] [place] [address] GFR/1.73 sq M predicted among non-blacks MDRD vol rate/area (S/P/Bld) 28 mL/min/1.73 m2 Normal [facility] Comment on above: Order Comment: Order added by Discern Expert. Performed By: #### 1 [id number] #### [facility] [address] [place], [place] [address] C Urineon 01-07-2018 C Urine Final Report: No growth Normal [facility] Comment on above: Performed By: #### 1 [id number] #### [facility] [address] [place] [address] Auto Diffon 01-05-2018 Basophils #/vol (Bld) 0.1 E3/mcL Normal 0.0-0.2 [facility] Comment on above: Order Comment: Order Added by Discern Expert. Performed By: #### 2 [id number] #### [facility] [address] [place] [id number] Basophils/100 WBC (Bld) 1.2 % Normal 0.0-2.0 [facility] Comment on above: Order Comment: Order Added by Discern Expert. Performed By: #### 2 [id number] #### [facility] [address] [place] [address] Eos Absolute 0.4 E3/mcL Normal 0.0-0.7 [facility] Comment on above: Order Comment: Order Added by Discern Expert. Performed By: #### 2 [id number] #### [facility] [address] [place] [address] Eosinophils/100 WBC (Bld) 4.3 % Normal 0.0-11.0 [facility] Comment on above: Order Comment: Order Added by Discern Expert. Performed By: #### 2 [id number] #### [facility] [address] [place] [address] Lymphocytes #/vol (Bld) 2.0 E3/mcL Normal 1.2-3.4 [facility] Comment on above: Order Comment: Order Added by Discern Expert. Performed By: #### 2 [id number] #### [facility] [address] [place] [address] Lymphocytes/100 WBC (Bld) 21.6 % Normal 20.0-55.0 [facility] Comment on above: Order Comment: Order Added by Discern Expert. Performed By: #### 2 [id number] #### [facility] [address] [place] [address] [place] Absolute 0.6 E3/mcL Normal 0.0-0.7 [facility] Comment on above: Order Comment: Order Added by Discern Expert. Performed By: #### 2 [id number] #### [facility]EN De LeonHemo [address] [place] [address] Monocytes/100 WBC (Bld) 6.5 % Normal 0.0-10.0 [facility] Comment on above: Order Comment: Order Added by Discern Expert. Performed By: #### 2 [id number] #### [facility] [address] [place] [address] Neutro Absolute 6.1 E3/mcL Normal 1.4-6.5 [facility] Comment on above: Order Comment: Order Added by Discern Expert. Performed By: #### 2 [id number] #### [facility] [address] [place] [address] Neutro Auto 66.4 % Normal 37.0-75.0 [facility] Comment on above: Order Comment: Order Added by Discern Expert. Performed By: #### 2 [id number] #### [facility] [address] [place] [address] CBC w/ Auto Diffon 8 Erythrocyte distribution width Ratio (RBC) 13.9 % Normal 11.5-14.5 [facility] Comment on above: Performed By: #### 2 [id number] #### K[facility]STEN De LeonHemo [facility] [place] [address] Hematocrit Volume Fraction (Bld) 43.4 % Normal 42.0-52.0 [facility] Comment on above: Performed By: #### 2 [id number] #### K[facility]STEN De LeonHemo [facility] [place] [address] Hemoglobin mass conc (Bld) 14.9 g/dL Normal 13.5-18.0 [facility] Comment on above: Performed By: #### 2 [id number] #### [facility]EN De LeonHemo [facility] [place] [address] MCH Entitic mass (RBC) 30.9 pg Normal 27.0-31.0 [facility] Comment on above: Performed By: #### 2 [id number] #### [facility]EN De LeonHemo [facility] [place] [address] MCHC mass conc (RBC) 34.2 g/dL Normal 33.0-37.0 [facility] Comment on above: Performed By: #### 2 [id number] #### K[facility]STEN De LeonHemo [facility] [place] [address] MCV Entitic volume (RBC) 90.3 fL Normal 78.0-100.0 [facility] Comment on above: Performed By: #### 2 [id number] #### K[facility]STEN De LeonHemo [facility] [place] [address] Platelet mean volume Entitic volume (Bld) 8.3 fL Normal 7.4-11.0 [facility] Comment on above: Performed By: #### 2 946623 #### KRISTENTito De LeonHemo [facility] [place] [address] Platelets #/vol (Bld) 192 E3/mcL Normal 130-400 [facility] Comment on above: Performed By: #### 2 [id number] #### KRISTENTito De LeonHemo [address] [place] [address] RBC #/vol (Bld) 4.81 E6/mcL Normal 3.90-6.10 [facility] Comment on above: Performed By: #### 2 [id number] #### K[facility]EN [facility] [address] [place] [address] WBC #/vol (Bld) 9.2 E3/mcL Normal 3.6-11.0 [facility] Comment on above: Performed By: #### 2 [id number] #### K[facility]STEN [facility] [address] [place], [place] [address] CMPon 01-05-2018 Anion gap molar conc 12 mmol/L Normal 10-20 [facility] Comment on above: Performed By: #### 2 [id number] #### [facility] [employer] [address] [place], [place] [address] Albumin mass conc 4.5 g/dL Normal 3.4-5.0 [facility] Comment on above: Performed By: #### 2 [id number] #### [facility] [employer] [address] [place] [address] Albumin/Globulin mass ratio 1.7 {ratio} Normal 1.1-1.9 [facility] Comment on above: Performed By: #### 2 850831 #### [facility] [employer] [address] [place] [address] Alk Phos 45 Normal 33-136 [facility] Comment on above: Performed By: #### 2 [id number] #### [facility] [employer] [address] [place] [address] ALT enzyme act/vol 15 Int._Unit/L Normal 10-52 [facility] Comment on above: Performed By: #### 2 [id number] #### [facility] [employer] [address] [place] [address] AST enzyme act/vol 21 Int._Unit/L Normal 9-39 [facility] Comment on above: Performed By: #### 2 [id number] #### [facility] [employer] [address] [place] [address] Bili Total 0.5 mg/dL Normal 0.0-1.2 [facility] Comment on above: Performed By: #### 2 736704 #### [facility] [employer] [address] [place] [address] Calcium mass conc 9.6 mg/dL Normal 8.6-10.3 [facility] Comment on above: Performed By: #### 2 195905 #### [facility] [employer] [address] [place] [address] Chloride molar conc 106 mmol/L Normal 98-107 [facility] Comment on above: Performed By: #### 2 [id number] #### [facility] [employer] [address] [place] [address] CO2 molar conc 26.0 mmol/L Normal 21.0-32.0 [facility] Comment on above: Performed By: #### 2 155181 #### [facility] [employer] [address] [place] [address] Creatinine mass conc 1.4 mg/dL High 0.6-1.3 [facility] Comment on above: Performed By: #### 2 [id number] #### [facility] [employer] [address] [place], [place] [address] Globulin mass conc (S) 3.0 g/dL Normal 2.0-4.0 [facility] Comment on above: Performed By: #### 2 [id number] #### [facility] [employer] [address] [place], [place] [address] Glucose mass conc 97 mg/dL Normal 70-99 [facility] Comment on above: Performed By: #### 2 041175 #### [facility] [employer] [address] [place] [address] Potassium molar conc 4.1 mmol/L Normal 3.5-5.3 [facility] Comment on above: Performed By: #### 2 121795 #### [facility] [employer] [address] [place] [address] Protein mass conc 7.1 g/dL Normal 6.4-8.2 [facility] Comment on above: Performed By: #### 2 272098 #### [facility] [employer] [address] [place] [address] Sodium molar conc 140 mmol/L Normal 136-145 [facility] Comment on above: Performed By: #### 2 [id number] #### [facility] [employer] [address] [place], [place] [address] Urea nitrogen mass conc 22 mg/dL Normal 6-23 [facility] Comment on above: Performed By: #### 2 752945 #### [facility] [employer] [address] [place] [address] Urea nitrogen/Creatinine mass ratio 15.7 ratio Normal 5.4-30.0 [facility] Comment on above: Performed By: #### 2 939073 #### [facility] [employer] [address] [place] [address] Abdomen/Pelvis w/o Contra ston 01-05-2018 CT Abdomen/Pelvis w/o Contrast Exam Date/Time: 01/05/2018 16:09 EDT Reason for Exam: Pain Report STUDY: CT Abdomen/Pelvis w/o Contrast; 01/05/2018 4:09 pm INDICATION: Pain COMPARISON: 04/03/2013 ACCESSION NUMBER(S): [id number] ORDERING CLINICIAN: Jaime Perez TECHNIQUE: CT of the abdomen and pelvis was performed without IV contrast. Coronal and sagittal reformatted images were obtained. Please note the examination is compromised due to lack of IV contrast. FINDINGS: ABDOMEN: LIVER: Unchanged scattered hepatic cysts measuring up to 3.1 cm in left hepatic lobe. SPLEEN: No focal splenic lesions. PANCREAS: No focal pancreatic lesions. ADRENALS: Within normal limits. GALLBLADDER: Status post cholecystectomy. BILE DUCTS: No biliary ductal dilation KIDNEYS/URETERS: 4 mm calculus in the proximal right ureter resulting in mild hydroureteronephrosis. No left-sided hydronephrosis or urolithiasis. VESSELS: 3.1 cm abdominal aortic aneurysm. 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 Severe atherosclerotic calcifications are noted. BOWEL: No bowel obstruction. Normal appendix. PERITONEUM/RETROPERITONE UM/LYMPH NODES: No lymphadenopathy by CT size criteria. No ascites or free air. PELVIS: REPRODUCTIVE ORGANS: Enlarged prostate gland. Exam Date/Time: 01/05/2018 16:09 EDT Report BLADDER: Within normal limits. ABDOMINAL WALL: Within normal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 inpatients or patients with acute renal failure, eGFR represents the GFR at the moment of the draw and should be used with caution. Result Comment: Non- GFR CalceGFR is an estimated Glomerular Filtration Rate based on the valueof the patient's serum creatinine. In outpatients, eGFR should be usedas a helpful tool in screening for CKD. In inpatients or patients withacute renal failure, eGFR represents the GFR at the moment of the drawand should be used with caution. Performed By: #### C BCDIF, CHEM8, HBA1C ####Unless otherwise noted, all testing performed by [address] [phone]: [id number] Director: Sondra Olivares M.D. Glucose mass conc 112 mg/dL High 70-99 [facility] Comment on above: This test result latrice ht be falsely depressed or falsely elevated on samples drawn from patients taking Sulfasalazine and Sulfapyridine. Venipuncture should occur prior to taking either of these drugs. Result Comment: This test result might be falsely depressed or falsely elevated onsamples drawn from patients taking Sulfasalazine and Sulfapyridine.Venipuncture should occur prior to taking either of these drugs. Performed By: #### C BCDIF, CHEM8, HBA1C ####Unless otherwise noted, all testing performed by [address], [place] [phone]: [id number] Director: Sondra Olivares M.D. Interpretation and review of laboratory results Abnormal Invalid Interpretation Code [facility] Potassium molar conc 4.5 mmol/L Normal 3.5-5.1 [facility] Comment on above: Performed By: #### C BCDIF, CHEM8, HBA1C ####Unless otherwise noted, all testing performed by [address], [place] [phone]: [id number] Director: Sondra Olivares M.D. Sodium 141 mmol/L Normal 135-145 [facility] Comment on above: Performed By: #### C BCDIF, CHEM8, HBA1C ####Unless otherwise noted, all testing performed by [address] [phone]: [id number] Director: Sondra Olivares M.D. Urea nitrogen 20 mg/dL Normal 8-25 [facility] Comment on above: Performed By: #### C BCDIF, CHEM8, HBA1C ####Unless otherwise noted, all testing performed by [place] [phone]: [id number] Director: Sondra Olivares M.D. CBC and Differentialon 02-12 Basophils Auto #/vol (Bld) 0.1 K/mcL Invalid Interpretation Code 0 - 0.2 [facility] Basophils/100 WBC Auto (Bld) 1.2 % Normal [facility] Comment on above: Performed By: #### C BCDIF, CHEM8, HBA1C ####Unless otherwise noted, all testing performed by [address] [phone]: [id number] Director: Sondra Olivares M.D. Eosinophils 0.5 K/mcL Invalid Interpretation Code 0 - 0.5 [facility] Eosinophils/100 leukocytes 5.8 % Normal [facility] Comment on above: Performed By: #### C BCDIF, CHEM8, HBA1C ####Unless otherwise noted, all testing performed by [address] [phone]: [id number] Director: Sondra Olivares M.D. Erythrocyte distribution width Auto Ratio (RBC) 13.6 % Normal 10-14.3 [facility] Comment on above: Performed By: #### C BCDIF, CHEM8, HBA1C ####Unless otherwise noted, all testing performed by [place] [phone]: [id number] Director: Sondra Olivares M.D. Erythrocytes (RBC) 5.03 M/mcL Invalid Interpretation Code 4.0 - 5.5 [facility] Hematocrit (HCT) 45.1 % Normal 37.9-49.2 [facility] Comment on above: Performed By: #### C BCDIF, CHEM8, HBA1C ####Unless otherwise noted, all testing performed by [place] [phone]: [id number] Director: Sondra Olivares M.D. Hemoglobin mass conc (Bld) 15.0 g/dL Normal 12.9-16.9 [facility] Comment on above: Performed By: #### C BCDIF, CHEM8, HBA1C ####Unless otherwise noted, all testing performed by [place] [phone]: [id number] Director: Sondra Olivares M.D. Lymphocytes 1.8 K/mcL Invalid Interpretation Code 0.9 - 3.6 [facility] Lymphocytes/100 leukocytes 23.0 % Normal [facility] Comment on above: Performed By: #### C BCDIF, CHEM8, HBA1C ####Unless otherwise noted, all testing performed by [place] [phone]: [id number] Director: Sondra Olivares M.D. MCH 29.8 pg Normal 27.7-34.6 [facility] Comment on above: Performed By: #### C BCDIF, CHEM8, HBA1C ####Unless otherwise noted, all testing performed by [address] [phone]: [id number] Director: Sondra Olivares M.D. MCHC mass conc (RBC) 33.2 g/dL Normal 32.9-35.5 [facility] Comment on above: Performed By: #### C BCDIF, CHEM8, HBA1C ####Unless otherwise noted, all testing performed by [address] [phone]: [id number] Director: Sondra Olivares M.D. MCV 89.8 fL Normal 82.8-99.3 [facility] Comment on above: Performed By: #### C BCDIF, CHEM8, HBA1C ####Unless otherwise noted, all testing performed by [address] [phone]: [id number] Director: Sondra Olivares M.D. Monocytes 0.5 K/mcL Invalid Interpretation Code 0.2 - 0.6 [facility] Monocytes/100 leukocytes 7.0 % Normal [facility] Comment on above: Performed By: #### C BCDIF, CHEM8, HBA1C ####Unless otherwise noted, all testing performed by [address] [phone]: [id number] Director: Sondra Olivraes M.D. Neutrophils 4.9 K/mcL Invalid Interpretation Code 1.4 - 6.8 [facility] Platelet mean volume (PMV) 8.4 fL Normal 6.6-10.8 [facility] Comment on above: Performed By: #### C BCDIF, CHEM8, HBA1C ####Unless otherwise noted, all testing performed by [address] [phone]: [id number] Director: Sondra Olivares M.D. Platelets 180 K/mcL Invalid Interpretation Code 139 - 354 [facility] Segmented Neut 63.0 % Invalid Interpretation Code [facility] WBC (Leukocytes) 7.8 K/mcL Invalid Interpretation Code 3.6 - 10.4 [facility] CBC with Diffon 02-12-2017 Basophils Auto #/vol (Bld) 0.1 K/mcL Normal 0-0.2 [facility] Comment on above: Performed By: #### C BCDIF, CHEM8, HBA1C ####Unless otherwise noted, all testing performed by [address] [phone]: [id number] Director: Sondra Olivares M.D. Eosinophils 0.5 K/mcL Normal 0-0.5 [facility] Comment on above: Performed By: #### C BCDIF, CHEM8, HBA1C ####Unless otherwise noted, all testing performed by [address] [phone]: [id number] Director: Sondra Olivares M.D. Erythrocytes (RBC) 5.03 M/mcL Normal 4.0-5.5 [facility] Comment on above: Performed By: #### C BCDIF, CHEM8, HBA1C ####Unless otherwise noted, all testing performed by [address] [phone]: [id number] Director: Sondra Olivares M.D. Lymphocytes 1.8 K/mcL Normal 0.9-3.6 [facility] Comment on above: Performed By: #### C BCDIF, CHEM8, HBA1C ####Unless otherwise noted, all testing performed by [address] [phone]: [id number] Director: Sondra Olivares M.D. Monocytes 0.5 K/mcL Normal 0.2-0.6 [facility] Comment on above: Performed By: #### C BCDIF, CHEM8, HBA1C ####Unless otherwise noted, all testing performed by [phone]: [id number] Director: Sondra Olivares M.D. Neutrophils 4.9 K/mcL Normal 1.4-6.8 [facility] Comment on above: Performed By: #### C BCDIF, CHEM8, HBA1C ####Unless otherwise noted, all testing performed by [place] [phone]: [id number] Director: Sondra Olivares M.D. Platelets 180 K/mcL Normal 139-354 [facility] Comment on above: Performed By: #### C BCDIF, CHEM8, HBA1C ####Unless otherwise noted, all testing performed by [address] [phone]: [id number] Director: Sondra Olivares M.D. Segmented Neut % 63.0 % Normal [facility] Comment on above: Performed By: #### C BCDIF, CHEM8, HBA1C ####Unless otherwise noted, all testing performed by [place] [phone]: [id number] Director: Sondra Olivares M.D. WBC (Leukocytes) 7.8 K/mcL Normal 3.6-10.4 [facility] Comment on above: Performed By: #### C BCDIF, CHEM8, HBA1C ####Unless otherwise noted, all testing performed by [address] [phone]: [id number] Director: Sondra Olivares M.D. Hemoglobin A1con 02-12-2017 Hemoglobin A1c/Hemoglobin.total mass fraction (Bld) 5.9 % Normal 4.1-6.5 [facility] Comment on above: Performed By: #### C BCDIF, CHEM8, HBA1C ####Unless otherwise noted, all testing performed by [address] [phone]: [id number] Director: Sondra Olivares M.D. MRSA Screenon 02-12-2017 MRSA Screen Test Name: MRSA Scre en Culture Status: Final MRSA Screen: Negative Normal [facility] Comment on above: Performed By: #### M RSASCR ####Unless otherwise noted, all testing performed by [address] [phone]: [id number] Director: Sondra Olivares M.D. Vital Signs Date Time Vital Sign Value Performing Clinician Facility 10-08-2024 10:17040 Diastolic blood pressure 67 mm[Hg] Marni Catherine APRN.CNP Work Phone: [facility] 10-08-2024 10:17040 Heart rate 62 /min Marni Catherine APRN.CNP Work Phone: [facility] 10-08-2024 10:170400 Respiratory rate 16 /min Marni Fegatelli [employer]PER[employer]OR [employer].EARLY CHILDHOOD ASSISTANT Work Phone: [facility] 10-08-2024 10:17-0400 SaO2% (BldA) [Mass fraction] 99 % Marni Fegatkarina SUPERVISOR [employer].EARLY CHILDHOOD ASSISTANT Work Phone: [facility] 10-08-2024 10:17-0400 Systolic blood pressure 135 mm[Hg] Marni Fegatelli SUPERVISOR [employer].EARLY CHILDHOOD ASSISTANT Work Phone: [facility] 10-08-2024 09:52-0400 Body height 177.8 cm Marni Fegatkarina SUPERVISOR [employer].EARLY CHILDHOOD ASSISTANT Work Phone: [facility] 10-08-2024 09:52-0400 Body mass index (BMI) [Ratio] 24.36 kg/m2 Marni Fegatelli SUPERVISOR [employer].EARLY CHILDHOOD ASSISTANT Work Phone: [facility] 10-08-2024 09:52-0400 Body weight 77 kg Marni Fegatelli SUPERVISOR [employer].EARLY CHILDHOOD ASSISTANT Work Phone: [facility] 09-30-2024 14:00-0400 Diastolic blood pressure 55 mm[Hg] Tameka Zapienta PT [facility] 09-30-2024 14:00-0400 Heart rate 62 /min Tameka Paoletta PT [facility] 09-30-2024 14:00-0400 SaO2% (BldA) [Mass fraction] 98 % Tameka Paoletta PT [facility] 09-30-2024 14:00-0400 Systolic blood pressure 113 mm[Hg] Tameka Zapienta PT [facility] 09-17-2024 09:28-0400 Body height 177.8 cm Marni Fegatelli SUPERVISOR [employer].EARLY CHILDHOOD ASSISTANT Work Phone: [facility] 09-17-2024 09:28-0400 Body mass index (BMI) [Ratio] 24.39 kg/m2 Marni Fegatelli SUPERVISOR [employer].EARLY CHILDHOOD ASSISTANT Work Phone: [facility] 09-17-2024 09:28-0400 Body weight 77.11 kg Marni Fegatelli SUPERVISOR [employer].EARLY CHILDHOOD ASSISTANT Work Phone: [facility] 09-17-2024 09:28-0400 Diastolic blood pressure 57 mm[Hg] Marni Fegatelli SUPERVISOR [employer].EARLY CHILDHOOD ASSISTANT Work Phone: [facility] 09-17-2024 09:28-0400 Heart rate 56 /min Marni Fegatelli SUPERVISOR [employer].EARLY CHILDHOOD ASSISTANT Work Phone: [facility] 09-17-2024 09:28-0400 SaO2% (BldA) [Mass fraction] 96 % Marni Fegatelli SUPERVISOR [employer].EARLY CHILDHOOD ASSISTANT Work Phone: [facility] 09-17-2024 09:28-0400 Systolic blood pressure 90 mm[Hg] Marni Fegatelli SUPERVISOR [employer].EARLY CHILDHOOD ASSISTANT Work Phone: [facility] 08-27-2024 13:06-0400 Body height 177.8 cm Marni Fegatelli SUPERVISOR [employer].EARLY CHILDHOOD ASSISTANT Work Phone: [facility] 08-27-2024 13:06-0400 Body mass index (BMI) [Ratio] 25.08 kg/m2 Marni Fegatelli SUPERVISOR [employer].EARLY CHILDHOOD ASSISTANT Work Phone: [facility] 08-27-2024 13:06-0400 Body weight 79.3 kg Marni Fegatelli SUPERVISOR [employer].EARLY CHILDHOOD ASSISTANT Work Phone: [facility] 08-27-2024 13:06-0400 Diastolic blood pressure 62 mm[Hg] Marni Fegatelli SUPERVISOR [employer].EARLY CHILDHOOD ASSISTANT Work Phone: [facility] 08-27-2024 13:06-0400 Heart rate 57 /min Marni Fegatelli SUPERVISOR [employer].EARLY CHILDHOOD ASSISTANT Work Phone: [facility] 08-27-2024 13:06-0400 Respiratory rate 16 /min Marni Fegatelli SUPERVISOR [employer].EARLY CHILDHOOD ASSISTANT Work Phone: [facility] 08-27-2024 13:06-0400 SaO2% (BldA) [Mass fraction] 96 % Marni Fegatelli SUPERVISOR [employer].EARLY CHILDHOOD ASSISTANT Work Phone: [facility] 08-27-2024 13:06-0400 Systolic blood pressure 115 mm[Hg] Marni Catherine SUPERVISOR [employer].EARLY CHILDHOOD ASSISTANT Work Phone: [facility] 08-21-2024 10:13-0400 Body mass index (BMI) [Ratio] 24.99 kg/m2 Jeffy Mccrackenrigo SUPERVISOR [employer].EARLY CHILDHOOD ASSISTANT Work Phone: [facility] 08-21-2024 10:13-0400 Body temperature 97.59 [degF] Jeffy Mccrackenrigo SUPERVISOR [employer].EARLY CHILDHOOD ASSISTANT Work Phone: [facility] 08-21-2024 10:13-0400 Body weight 79 kg Jeffy Mccrackenrigo SUPERVISOR [employer].EARLY CHILDHOOD ASSISTANT Work Phone: [facility] 08-21-2024 10:13-0400 Diastolic blood pressure 50 mm[Hg] Jeffy Badillo SUPERVISOR [employer].EARLY CHILDHOOD ASSISTANT Work Phone: [facility] 08-21-2024 10:13-0400 Heart rate 59 /min Jeffy Badillo SUPERVISOR [employer].EARLY CHILDHOOD ASSISTANT Work Phone: [facility] 08-21-2024 10:13-0400 Respiratory rate 18 /min Jeffy Mccrackenrigo SUPERVISOR [employer].EARLY CHILDHOOD ASSISTANT Work Phone: [facility] 08-21-2024 10:13-0400 SaO2% (BldA) [Mass fraction] 96 % Jeffy Badillo SUPERVISOR [employer].EARLY CHILDHOOD ASSISTANT Work Phone: [facility] 08-21-2024 10:13-0400 Systolic blood pressure 115 mm[Hg] Jeffy Badillo SUPERVISOR [employer].EARLY CHILDHOOD ASSISTANT Work Phone: [facility] 08-20-2024 09:07-0400 Body mass index (BMI) [Ratio] 25.02 kg/m2 Jeffy Mccrackenrigo SUPERVISOR [employer].EARLY CHILDHOOD ASSISTANT Work Phone: [facility] 08-20-2024 09:07-0400 Body temperature 98.2 [degF] Jeffy Mccrackenrigo SUPERVISOR [employer].EARLY CHILDHOOD ASSISTANT Work Phone: [facility] 08-20-2024 09:07-0400 Body weight 79.1 kg Jeffy Badillo SUPERVISOR [employer].EARLY CHILDHOOD ASSISTANT Work Phone: [facility] 08-20-2024 09:07-0400 Diastolic blood pressure 64 mm[Hg] Jeffy Badillo SUPERVISOR [employer].EARLY CHILDHOOD ASSISTANT Work Phone: [facility] 08-20-2024 09:07-0400 Heart rate 65 /min Jeffy Badillo SUPERVISOR [employer].EARLY CHILDHOOD ASSISTANT Work Phone: [facility] 08-20-2024 09:07-0400 Respiratory rate 20 /min Jeffy Badillo SUPERVISOR [employer].EARLY CHILDHOOD ASSISTANT Work Phone: [facility] 08-20-2024 09:07-0400 SaO2% (BldA) [Mass fraction] 98 % Jeffy Badillo SUPERVISOR [employer].EARLY CHILDHOOD ASSISTANT Work Phone: [facility] 08-20-2024 09:07-0400 Systolic blood pressure 104 mm[Hg] Jeffy Badillo SUPERVISOR [employer].EARLY CHILDHOOD ASSISTANT Work Phone: [facility] 06-29-2024 11:20-0400 Diastolic blood pressure 63 mm[Hg] ANTHONY Archuleta MD Work Phone: [facility] 06-29-2024 11:20-0400 Heart rate 84 /min ANTHONY Archuleta MD Work Phone: [facility] 06-29-2024 11:20-0400 Respiratory rate 16 /min ANTHONY Archuleta MD Work Phone: [facility] 06-29-2024 11:20-0400 SaO2% (BldA) [Mass fraction] 92 % ANTHONY Archuleta MD Work Phone: [facility] 06-29-2024 11:20-0400 Systolic blood pressure 113 mm[Hg] ANTHONY Archuleta MD Work Phone: [facility] 06-29-2024 11:00-0400 Body temperature 97.2 [degF] ANTHONY Archuleta MD Work Phone: [facility] 06-29-2024 09:14-0400 Body height 175.3 cm ANTHONY Archuleta MD Work Phone: [facility] 06-29-2024 09:14-0400 Body mass index (BMI) [Ratio] 25.84 kg/m2 ANTHONY Archuleta MD Work Phone: [facility] 06-29-2024 09:14-0400 Body weight 79.38 kg ANTHONY Archuleta MD Work Phone: [facility] 06-27-2024 10:36-0400 Body mass index (BMI) [Ratio] 25.93 kg/m2 Jennifer Praisler-Wood SUPERVISOR [employer].EARLY CHILDHOOD ASSISTANT Work Phone: [facility] 06-27-2024 10:36-0400 Body weight 80.8 kg Jennifer Praisler-Wood SUPERVISOR [employer]MENT.EARLY CHILDHOOD ASSISTANT Work Phone: [facility] 06-27-2024 10:36-0400 Diastolic blood pressure 68 mm[Hg] Jennifer Praisler-Wood SUPERVISOR [employer].EARLY CHILDHOOD ASSISTANT Work Phone: [facility] 06-27-2024 10:36-0400 Heart rate 62 /min Jennifer Praisler-Wood SUPERVISOR [employer]MENT.EARLY CHILDHOOD ASSISTANT Work Phone: [facility] 06-27-2024 10:36-0400 Respiratory rate 16 /min Jennifer Praisler-Wood SUPERVISOR [employer].EARLY CHILDHOOD ASSISTANT Work Phone: [facility] 06-27-2024 10:36-0400 SaO2% (BldA) [Mass fraction] 98 % Jennifer Praisler-Wood SUPERVISOR [employer].EARLY CHILDHOOD ASSISTANT Work Phone: [facility] 06-27-2024 10:36-0400 Systolic blood pressure 106 mm[Hg] Jennifer Praisler-Wood SUPERVISOR [employer].EARLY CHILDHOOD ASSISTANT Work Phone: [facility] 06-23-2024 15:29-0400 Body mass index (BMI) [Ratio] 26.06 kg/m2 Sara Mcdaniel APRN.EARLY CHILDHOOD ASSISTANT Work Phone: [facility] 06-23-2024 15:29-0400 Body temperature 97.81 [degF] Sara Mcdaniel APRN.EARLY CHILDHOOD ASSISTANT Work Phone: [facility] 06-23-2024 15:29-0400 Body weight 81.2 kg Sara Mcdaniel APRN.EARLY CHILDHOOD ASSISTANT Work Phone: [facility] 06-23-2024 15:29-0400 Diastolic blood pressure 60 mm[Hg] Sara Mcdaniel APRN.EARLY CHILDHOOD ASSISTANT Work Phone: [facility] 06-23-2024 15:29-0400 Heart rate 60 /min Sara Mcdaniel APRN.EARLY CHILDHOOD ASSISTANT Work Phone: [facility] 06-23-2024 15:29-0400 Respiratory rate 16 /min Sara Mcdaniel APRN.EARLY CHILDHOOD ASSISTANT Work Phone: [facility] 06-23-2024 15:29-0400 SaO2% (BldA) [Mass fraction] 97 % Sara Mcdaniel APRN.EARLY CHILDHOOD ASSISTANT Work Phone: [facility] 06-23-2024 15:29-0400 Systolic blood pressure 132 mm[Hg] Sara Mcdaniel APRN.EARLY CHILDHOOD ASSISTANT Work Phone: [facility] 04-10-2024 10:35-0500 Body mass index (BMI) [Ratio] 26.06 kg/m2 Sondra Curry APRN.EARLY CHILDHOOD ASSISTANT Work Phone: [facility] 04-10-2024 10:35-0500 Body temperature 98.29 [degF] Sondra Curry APRN.EARLY CHILDHOOD ASSISTANT Work Phone: [facility] 04-10-2024 10:35-0500 Body weight 81.2 kg Sondra Curry APRN.EARLY CHILDHOOD ASSISTANT Work Phone: [facility] 04-10-2024 10:35-0500 Diastolic blood pressure 56 mm[Hg] Sondra Curry SUPERVISOR [employer]MENT.EARLY CHILDHOOD ASSISTANT Work Phone: [facility] 04-10-2024 10:35-0500 Heart rate 78 /min Sondra Curry APRN.EARLY CHILDHOOD ASSISTANT Work Phone: [facility] 04-10-2024 10:35-0500 Respiratory rate 16 /min Sondra Curry SUPERVISOR [employer].EARLY CHILDHOOD ASSISTANT Work Phone: [facility] 04-10-2024 10:35-0500 SaO2% (BldA) [Mass fraction] 97 % Sondra Curry SUPERVISOR [employer].EARLY CHILDHOOD ASSISTANT Work Phone: [facility] 04-10-2024 10:35-0500 Systolic blood pressure 106 mm[Hg] Sondra Curry THOM.EARLY CHILDHOOD ASSISTANT Work Phone: [facility] 01-22-2024 10:46-0500 Body height 176.5 cm ANTHONY Archuleta MD Work Phone: [facility] 01-22-2024 10:46-0500 Body mass index (BMI) [Ratio] 25.41 kg/m2 ANTHONY Archuleta MD Work Phone: [facility] 01-22-2024 10:46-0500 Body temperature 97.5 [degF] ANTHONY Archuleta MD Work Phone: [facility] 01-22-2024 10:46-0500 Body weight 79.2 kg ANTHONY Archuleta MD Work Phone: [facility] 01-22-2024 10:46-0500 Diastolic blood pressure 51 mm[Hg] ANTHONY Archuleta MD Work Phone: [facility] 01-22-2024 10:46-0500 Heart rate 56 /min ANTHONY Archuleta MD Work Phone: [facility] 01-22-2024 10:46-0500 Respiratory rate 20 /min ANTHONY Archuleta MD Work Phone: [facility] 01-22-2024 10:46-0500 SaO2% (BldA) [Mass fraction] 98 % ANTHONY Archuleta MD Work Phone: [facility] 01-22-2024 10:46-0500 Systolic blood pressure 138 mm[Hg] ANTHONY Archuleta MD Work Phone: [facility] 12-23-2023 08:48-0400 Diastolic blood pressure 55 mm[Hg] Manuel Ramsay MD Work Phone: [facility] 12-23-2023 08:48-0400 Heart rate 54 /min Manuel Ramsay MD Work Phone: [facility] 12-23-2023 08:48-0400 Respiratory rate 16 /min Manuel Ramsay MD Work Phone: [facility] 12-23-2023 08:48-0400 SaO2% (BldA) [Mass fraction] 97 % Manuel Ramsay MD Work Phone: [facility] 12-23-2023 08:48-0400 Systolic blood pressure 112 mm[Hg] Manuel Ramsay MD Work Phone: [facility] 12-23-2023 07:34-0400 Body mass index (BMI) [Ratio] 25.82 kg/m2 Manuel Ramsay MD Work Phone: [facility] 12-23-2023 07:34-0400 Body temperature 97.81 [degF] Manuel Ramsay MD Work Phone: [facility] 12-23-2023 07:34-0400 Body weight 79.3 kg Manuel Ramsay MD Work Phone: [facility] 12-05-2023 08:55-0400 Body height 175.3 cm [employer] Work Phone: [facility] 12-05-2023 08:55-0400 Body mass index (BMI) [Ratio] 25.81 kg/m2 [employer] CHILDHOOD ASSISTANT Work Phone: [facility] 12-05-2023 08:55-0400 Body temperature 97 [degF] Eva Power SUPERVISOR HEAVY EQUIPMENT.EARLY CHILDHOOD ASSISTANT Work Phone: [facility] 12-05-2023 08:55-0400 Body weight 79.29 kg Eva Power SUPERVISOR HEAVY EQUIPMENT.EARLY CHILDHOOD ASSISTANT Work Phone: [facility] 12-05-2023 08:55-0400 Diastolic blood pressure 60 mm[Hg] Eva Power SUPERVISOR HEAVY EQUIPMENT.EARLY CHILDHOOD ASSISTANT Work Phone: [facility] 12-05-2023 08:55-0400 Heart rate 66 /min Eva Power SUPERVISOR HEAVY EQUIPMENT.EARLY CHILDHOOD ASSISTANT Work Phone: [facility] 12-05-2023 08:55-0400 SaO2% (BldA) [Mass fraction] 99 % Eva Ash SUPERVISOR HEAVY EQUIPMENT.EARLY CHILDHOOD ASSISTANT Work Phone: [facility] 12-05-2023 08:55-0400 Systolic blood pressure 130 mm[Hg] Eva Ash SUPERVISOR HEAVY EQUIPMENT.EARLY CHILDHOOD ASSISTANT Work Phone: [facility] 07-03-2023 13:23-0400 Body height 174.5 cm Lit Ramosimm DO Work Phone: [facility] 07-03-2023 13:23-0400 Body weight 77.11 kg Lit Ramosimm DO Work Phone: [facility] 07-03-2023 13:23-0400 Diastolic blood pressure 50 mm[Hg] Lit Ramosimm DO Work Phone: [facility] 07-03-2023 13:23-0400 Heart rate 58 /min Lit Ramosimm DO Work Phone: [facility] 07-03-2023 13:23-0400 SaO2% (BldA) [Mass fraction] 96 % Lit Julianne DO Work Phone: [facility] 07-03-2023 13:23-0400 Systolic blood pressure 119 mm[Hg] Lit Ramosimm DO Work Phone: [facility] 01-20-2023 16:12-0500 Heart rate 68 /min [facility] 01-20-2023 16:12-0500 Respiratory rate 15 /min [facility] 01-20-2023 16:12-0500 SaO2% (BldA) [Mass fraction] 97 % [facility] 01-20-2023 15:05-0500 Body height 177.8 cm [facility] 01-20-2023 15:05-0500 Body mass index (BMI) [Ratio] 25.6 kg/m2 [facility] 01-20-2023 15:05-0500 Body temperature 97.6 [degF] [facility] 01-20-2023 15:05-0500 Body weight 81.01 kg [facility] 01-20-2023 15:05-0500 Diastolic blood pressure 66 mm[Hg] [facility] 01-20-2023 15:05-0500 Systolic blood pressure 144 mm[Hg] [facility] 07-02-2022 13:56-0400 Body height 172.7 cm García Peoples MD Work Phone: [facility] 07-02-2022 13:56-0400 Body mass index (BMI) [Ratio] 27.19 kg/m2 García Peoples MD Work Phone: [facility] 07-02-2022 13:56-0400 Body temperature 96.8 [degF] García Peoples MD Work Phone: [facility] 07-02-2022 13:56-0400 Body weight 81.1 kg García Peoples MD Work Phone: [facility] 07-02-2022 13:56-0400 Diastolic blood pressure 72 mm[Hg] García Peoples MD Work Phone: [facility] 07-02-2022 13:56-0400 Heart rate 55 /min García Peoples MD Work Phone: [facility] 07-02-2022 13:56-0400 SaO2% (BldA) [Mass fraction] 95 % García Peoples MD Work Phone: [facility] 07-02-2022 13:56-0400 Systolic blood pressure 109 mm[Hg] García Peoples MD Work Phone: [facility] 03-05-2022 14:18-0500 Body height 172.7 cm García Peoples MD Work Phone: [facility] 03-05-2022 14:18-0500 Body mass index (BMI) [Ratio] 27.64 kg/m2 García Peoples MD Work Phone: [facility] 03-05-2022 14:18-0500 Body temperature 97.11 [degF] García Peoples MD Work Phone: [facility] 03-05-2022 14:18-0500 Body weight 82.46 kg García Peoples MD Work Phone: [facility] 03-05-2022 14:18-0500 Diastolic blood pressure 60 mm[Hg] García Peoples MD Work Phone: [facility] 03-05-2022 14:18-0500 Heart rate 60 /min García Peoples MD Work Phone: [facility] 03-05-2022 14:18-0500 Respiratory rate 18 /min García Peoples MD Work Phone: [facility] 03-05-2022 14:18-0500 SaO2% (BldA) [Mass fraction] 96 % García Peoples MD Work Phone: [facility] 03-05-2022 14:18-0500 Systolic blood pressure 130 mm[Hg] García Peoples MD Work Phone: [facility] 01-01-2022 13:51-0400 Body height 172.7 cm García Peoples MD Work Phone: [facility] 01-01-2022 13:51-0400 Body mass index (BMI) [Ratio] 27.61 kg/m2 García Peoples MD Work Phone: [facility] 01-01-2022 13:51-0400 Body temperature 97.3 [degF] García Peoples MD Work Phone: [facility] 01-01-2022 13:51-0400 Body weight 82.37 kg García Peoples MD Work Phone: [facility] 01-01-2022 13:51-0400 Diastolic blood pressure 74 mm[Hg] García Peoples MD Work Phone: [facility] 01-01-2022 13:51-0400 Heart rate 79 /min García Peoples MD Work Phone: [facility] 01-01-2022 13:51-0400 Respiratory rate 18 /min García Peoples MD Work Phone: [facility] 01-01-2022 13:51-0400 SaO2% (BldA) [Mass fraction] 98 % García Peoples MD Work Phone: [facility] 01-01-2022 13:51-0400 Systolic blood pressure 122 mm[Hg] García Peoples MD Work Phone: [facility] 10-30-2021 14:54-0400 Body temperature 96.69 [degF] Sandra Athy PA-C Work Phone: [facility] 10-30-2021 14:54-0400 Body weight 80.56 kg Sandra Athy PA-C Work Phone: [facility] 10-30-2021 14:54-0400 Diastolic blood pressure 92 mm[Hg] Sandra Athy PA-C Work Phone: [facility] 10-30-2021 14:54-0400 Heart rate 65 /min Sandra Athy PA-C Work Phone: [facility] 10-30-2021 14:54-0400 Respiratory rate 16 /min Sandra Athy PA-C Work Phone: [facility] 10-30-2021 14:54-0400 SaO2% (BldA) [Mass fraction] 97 % Sandra Athy PA-C Work Phone: [facility] 10-30-2021 14:54-0400 Systolic blood pressure 172 mm[Hg] Sandra Athy PA-C Work Phone: [facility] 07-17-2021 13:45-0400 Body height 172.7 cm García Peoples MD Work Phone: [facility] 07-17-2021 13:45-0400 Body mass index (BMI) [Ratio] 27.73 kg/m2 García Peoples MD Work Phone: [facility] 07-17-2021 13:45-0400 Body temperature 97.39 [degF] García Peoples MD Work Phone: [facility] 07-17-2021 13:45-0400 Body weight 82.74 kg García Peoples MD Work Phone: [facility] 07-17-2021 13:45-0400 Diastolic blood pressure 70 mm[Hg] García Peoples MD Work Phone: [facility] 07-17-2021 13:45-0400 Heart rate 59 /min García Peoples MD Work Phone: [facility] 07-17-2021 13:45-0400 Respiratory rate 18 /min García Peoples MD Work Phone: [facility] 07-17-2021 13:45-0400 SaO2% (BldA) [Mass fraction] 98 % García Peoples MD Work Phone: [facility] 07-17-2021 13:45-0400 Systolic blood pressure 128 mm[Hg] García Peoples MD Work Phone: [facility] 04-14-2018 13:58-0500 BMI (Body Mass Index) 27.3 kg/m2 [facility] Work Phone: 04-14-2018 13:58-0500 Body Temperature 96.6 [degF] [facility] Work Phone: 04-14-2018 13:58-0500 BP Diastolic 60 mm[Hg] [facility] Work Phone: 04-14-2018 13:58-0500 BP Systolic 118 mm[Hg] [facility] Work Phone: 04-14-2018 13:58-0500 Height 174 cm Carla [facility] Work Phone: 04-14-2018 13:58-0500 Pulse (Heart Rate) 51 /min Carla [facility] Work Phone: 04-14-2018 13:58-0500 Pulse Oximetry 97 % [facility] Work Phone: 04-14-2018 13:58-0500 Respiratory Rate 16 /min Carla [facility] Work Phone: 04-14-2018 13:58-0500 Weight 82.64 kg Carla [facility] Work Phone: 01-23-2018 14:06-0500 Body weight Measured 35.9 mg felipe [facility] Comment on above: Performed By: #### [id number] #### [place] [address] 03-19-2017 15:38-0500 BMI (Body Mass Index) 25.97 kg/m2 Monica Victor Hugo [facility] Work Phone: 03-19-2017 15:38-0500 Height 177.8 cm Monica Escamilla [facility] Work Phone: 03-19-2017 15:38-0500 Weight 82.1 kg Monicalila Escamilla [facility] Work Phone: Encounters Encounter Date Encounter Type Care Provider Facility Start: 10-28-2024 ambulatory Edson Baptiste Facilit y:[facility] Start: 10-26-2024 End: 10-26-2024 ambulatory Sushil Garduno PTA Work Phone: [facility] Comment on above: Subdural hematoma (H CC) (Primary Dx) Start: 10-21-2024 End: 10-22-2024 ambulatory EDSON BAPTISTE Facility:[facility] Start: 10-13-2024 End: 10-13-2024 Telephone encounter Marni Catherine APRN.EARLY CHILDHOOD ASSISTANT Work Phone: [facility] Comment on above: Results Start: 10-13-2024 End: 10-13-[address] Edson Baptiste MD Work Phone: -Laboratory Aliyah Mejia Start: 10-13-2024 End: 10-13-[address] 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 Start: 10-08-2024 End: 10-08-2024 Patient encounter procedure Marni Catherine APRN.EARLY CHILDHOOD ASSISTANT Work Phone: [facility] Comment on above: Subdural hematoma (H CC) (Primary Dx) Start: 10-08-2024 End: 10-08-2024 ambulatory EDSON BAPTISTE Facility:[facility] Start: 10-08-2024 End: 10-08-2024 Subsequent hospital visit by physician [facility] SCAN [place] COLLECTION SUPERVISOR Comment on above: Subdural hematoma (H CC) [S06.5XAA] Start: 10-05-2024 End: 10-05-2024 OT/PT/Speech Visit Paz Corona CCC-LAY OUT MAKER [facility] Speech Therapy Comment on above: SDH (subdural hemato ma) (HCC) (Primary Dx); 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 Start: 10-02-2024 End: 10-05-2024 ambulatory Qian Mccain OTR/L Work Phone: [facility] Comment on above: Subdural hematoma (H CC) (Primary Dx); History of craniotomy Start: 09-30-2024 End: 09-30-2024 ambulatory Tameka Rock PT [facility] Comment on above: Subdural hematoma (H CC) (Primary Dx); Abnormality of gait; Impaired functional mobility, balance, gait, and endurance Start: 09-28-2024 End: 09-28-2024 OT/PT/Speech Visit Paz Corona CCC-LAY OUT MAKER [facility] Speech Therapy Comment on above: SDH (subdural hemato ma) (HCC) (Primary Dx); 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 Start: 09-21-2024 End: 09-21-2024 OT/PT/Speech Visit Paz Corona CCC-LAY OUT MAKER [facility] Speech Therapy Comment on above: SDH (subdural hemato ma) (HCC) (Primary Dx); 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 Start: 09-17-2024 End: 09-17-2024 Patient encounter procedure Marni Catherine APRN.CNP Work Phone: [facility] Comment on above: Subdural hematoma (H CC) (Primary Dx) Start: 09-17-2024 End: 09-17-2024 ambulatory EDSON BAPTISTE Facility:[facility] Start: 09-17-2024 End: 09-17-2024 Subsequent hospital visit by physician [facility] SCAN [place] COLLECTION SUPERVISOR Comment on above: Subdural hematoma (H CC) [S06.5XAA] Start: 09-08-2024 End: 09-08-2024 Telephone encounter Marni Catherine APRN.CNP Work Phone: [facility] Start: 09-06-2024 End: 09-18-2024 ambulatory EDSON BAPTISTE Facility:[facility] Start: 09-06-2024 End: 09-18-2024 Subsequent hospital visit by physician Mansi Landers DO Work Phone: [facility] Start: 09-04-2024 End: 09-04-2024 Telephone encounter Christine Francois MD Work Phone: [facility] Comment on above: Appointment Start: 08-30-2024 End: 09-06-2024 Evaluation and management of inpatient [address] Facility:[facility] Start: 08-30-2024 End: 08-30-2024 Emergency department patient visit MIRLANDE LOVELL Facility:[facility] Start: 08-27-2024 End: 08-27-2024 Patient encounter procedure Marni Catherine APRN.EARLY CHILDHOOD ASSISTANT Work Phone: [facility] Comment on above: Subdural hematoma (H CC) (Primary Dx) Start: 08-27-2024 End: 08-27-2024 ambulatory EDSON BAPTISTE Facility:[facility] Start: 08-24-2024 ambulatory EDSON BAPTISTE Facilit y:[facility] Start: 08-24-2024 End: 08-24-2024 Subsequent hospital visit by physician [facility] Work Phone: RADIO [facility] Comment on above: Subdural hematoma (H CC) [S06.5XAA] Start: 08-21-2024 End: 08-21-2024 Office outpatient visit 15 minutes Jeffy Badillo SUPERVISOR HEAVY EQUIPMENT.EARLY CHILDHOOD ASSISTANT Work Phone: [facility] Comment on above: Encounter for post s urgical wound check (Primary Dx) Start: 08-21-2024 End: 08-21-2024 ambulatory EDSON BAPTISTE Facility:[facility] Start: 08-20-2024 End: 08-20-2024 Office outpatient visit 25 minutes Jeffy Badillo SUPERVISOR HEAVY EQUIPMENT.EARLY CHILDHOOD ASSISTANT Work Phone: [facility] Comment on above: Encounter for post s urgical wound check (Primary Dx) Start: 08-20-2024 End: 08-20-2024 ambulatory JEFFY BADILLO Facility:[facility] Start: 08-19-2024 End: 08-19-2024 ambulatory Qian Mccain OTR/L Work Phone: [facility] Comment on above: Subdural hematoma (H CC) Start: 08-18-2024 End: 08-18-2024 Telephone encounter Marni Catherine APRN.EARLY CHILDHOOD ASSISTANT Work Phone: [facility] Start: 08-17-2024 End: 08-17-2024 Telephone encounter Christine Francois MD Work Phone: [facility] Start: 08-09-2024 End: 08-13-2024 Evaluation and management of inpatient SAMER OLIVIA Facility:[facility] Start: 08-09-2024 End: 08-09-2024 Orders Only Christine Francois MD Work Phone: [facility] Comment on above: Subdural hematoma (H CC) (Primary Dx) Start: 08-09-2024 End: 08-09-2024 [facility] Start: 07-07-2024 End: 07-07-2024 Telephone encounter Fritz Archuleta MD Work Phone: Colorectal Surgery Start: 06-29-2024 End: 06-29-2024 ambulatory Fritz ARCHULETA Facility:[facility] Start: 06-29-2024 End: 06-29-2024 Subsequent hospital visit by physician Fritz Archuleta MD Work Phone: Gastroenterology Comment on above: Polyp of colon, unsp ecified part of colon, unspecified type [K63.5] Start: 06-27-2024 End: 06-27-2024 Subsequent hospital visit by physician Aleah [facility] Work Phone: Radiology Comment on above: Foot injury, left, i nitial encounter [S99.922A] Start: 06-27-2024 End: 06-27-2024 ambulatory [facility] Facility:[facility] Start: 06-27-2024 End: 06-27-2024 Patient encounter procedure Jennifer Pagan APRN.CNP Work Phone[facility] Comment on above: Foot injury, left, i nitial encounter (Primary Dx); Fall from stairs Start: 06-23-2024 End: 06-23-2024 Subsequent hospital visit by physician Aleah [facility] Work Phone: Radiology Comment on above: Pain [R52] Start: 06-23-2024 End: 06-23-2024 ambulatory [facility] Facility:[facility] Start: 06-23-2024 End: 06-23-2024 Patient encounter procedure Sara Violeta SUPERVISOR HEAVY EQUIPMENT.EARLY CHILDHOOD ASSISTANT Work Phone: [facility] Comment on above: Pain (Primary Dx) Start: 06-22-2024 End: 06-22-2024 ambulatory Braxton Calixto RNcustomer advocacy manager Start: 06-01-2024 End: 06-01-2024 Telephone encounter I Cristian Archuleta MD Work Phone: Colorectal Surgery Start: 04-10-2024 End: 04-10-2024 ambulatory [facility] Facility:[facility] Start: 04-10-2024 End: 04-10-2024 Patient encounter procedure Sondra Curry THOM.EARLY CHILDHOOD ASSISTANT Work Phone: [facility] Comment on above: Sinobronchitis (Prim barbi Dx); Acute cough Start: 04-03-2024 ambulatory [facility] Sidra Facilit y:[facility] Start: 04-03-2024 End: 04-03-2024 ambulatory [facility] Facility:[facility] Start: 02-20-2024 End: 02-21-2024 Telephone encounter Manuel Ramsay MD Work Phone: General Surgery Comment on above: Results Start: 02-06-2024 End: 02-06-2024 Orders Only I Cristian Archuleta MD Work Phone: Colorectal Surgery Comment on above: Polyp of colon, unsp ecified part of colon, unspecified type (Primary Dx) Start: 01-28-2024 End: 01-28-2024 Orders Only Fritz Archuleta MD Work Phone: Colorectal Surgery Comment on above: Polyp of colon, unsp ecified part of colon, unspecified type (Primary Dx) Start: 01-22-2024 End: 02-07-2024 Telephone encounter Fritz Archuleta MD Work Phone: Colorectal Surgery Start: 01-22-2024 End: 01-22-2024 ambulatory MANUEL RAMSAY Facility:[facility] Start: 01-22-2024 End: 01-22-2024 Patient encounter procedure Fritz Archuleta MD Work Phone: Colorectal Surgery Comment on above: History of colonic p olyps Start: 01-17-2024 End: 01-17-2024 [facility] Start: 12-23-2023 End: 12-23-2023 ambulatory MANUEL RAMSAY Facility:[facility] Start: 12-23-2023 End: 12-23-2023 Subsequent hospital visit by physician Manuel Ramsay MD Work Phone: Ambulatory Surgery Comment on above: Encounter for screen ing for malignant neoplasm of colon [Z12.11] Start: 12-05-2023 End: 01-21-2024 Telephone encounter Eva Ash APRN.EARLY CHILDHOOD ASSISTANT Work Phone: General Surgery Comment on above: Patient Update Start: 12-05-2023 End: 12-05-2023 ambulatory EVA ASH Facility:[facility] Start: 12-05-2023 End: 12-05-2023 Patient encounter procedure Eva Ash SUPERVISOR HEAVY EQUIPMENT.EARLY CHILDHOOD ASSISTANT Work Phone: General Surgery Comment on above: Encounter for screen ing for malignant neoplasm of colon (Primary Dx); History of colonic polyps; BRBPR (bright red blood per rectum) Start: 11-09-2023 End: 11-09-2023 Emergency department patient visit [facility] Start: 10-16-2023 End: 10-16-2023 ambulatory Gilda Chopra APRN.COLLECTION SUPERVISOR Work Phone: Cardiothoracic Comment on above: Dissecting aneurysm of thoracic aorta, Hank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) (Primary Dx); S/P ascending aortic aneurysm repair; H/O aortic arch replacement Start: 10-16-2023 End: 10-16-2023 Telemedicine consultation with patient Gilda Chopra APRN.COLLECTION SUPERVISOR Work Phone: Cardiothoracic Start: 10-16-2023 End: 10-16-2023 ambulatory [facility] Facility:[facility] Start: 07-11-2023 End: 07-11-2023 ambulatory [facility] Work Phone: Start: 07-11-2023 End: 07-11-2023 Patient encounter procedure [facility] Start: 07-03-2023 End: 07-03-2023 Patient encounter procedure Lit Whitaker DO Work Phone: Cardiology Comment on above: H/O aortic aneurysm repair (Primary Dx); Dissecting aneurysm of thoracic aorta, Hank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); Coronary artery disease with angina pectoris, unspecified vessel or lesion type, unspecified whether [place] or transplanted heart (HCC); Hypertension, unspecified type Start: 07-03-2023 End: 07-03-2023 Subsequent hospital visit by physician Ct [address] Qb (I-Stat) Radiology Comment on above: Abdominal aortic ane urysm (AAA) without rupture, unspecified part (HCC) [I71.40] Start: 03-04-2023 End: 03-04-2023 ambulatory [facility] Work Phone: Start: 03-04-2023 End: 03-04-2023 Patient encounter procedure [facility] Start: 01-20-2023 End: 01-20-2023 Emergency department patient visit [facility] Work Phone: Start: 11-23-2022 Orders Only Chris Recinos MD Work Phone: Cardiothoracic Comment on above: Abdominal aortic ane urysm (AAA) without rupture, unspecified part (HCC) (Primary Dx); Thoracoabdominal aortic aneurysm (TAAA) without rupture, unspecified part (HCC); Dissection of thoracoabdominal aorta (HCC) Start: 11-21-2022 End: 11-21-2022 Patient encounter procedure [facility] Start: 08-31-2022 Telephone encounter Sara Mcdaniel APRN.[facility] Work Phone: [facility] Comment on above: Results Start: 07-02-2022 ambulatory GARCÍA PEOPLES [facility] Start: 07-02-2022 End: 07-02-2022 Office outpatient visit 25 minutes García Peoples MD Work Phone: [facility] Comment on above: Benign essential hyp ertension; Coronary artery disease with angina pectoris, unspecified vessel or lesion type, unspecified whether [place] or transplanted heart; Mixed hyperlipidemia Start: 06-27-2022 [facility] Start: 06-26-2022 ambulatory [facility] Start: 03-05-2022 End: 03-05-2022 Office outpatient visit 15 minutes García Peoples MD Work Phone: [facility] Comment on above: Dysfunction of right eustachian tube (Primary Dx) Start: 01-01-2022 ambulatory [facility] Start: 01-01-2022 End: 01-01-2022 Office outpatient visit 25 minutes García Peoples MD Work Phone: [facility] Comment on above: Benign essential hyp ertension; Coronary artery disease with angina pectoris, unspecified vessel or lesion type, unspecified whether [place] or transplanted heart; Mixed hyperlipidemia; Dry scalp; Frequency of urination; Impotence of organic origin Start: 12-26-2021 [facility] Start: 12-25-2021 [facility] Start: 10-30-2021 End: 10-30-2021 Patient encounter procedure Sandra Polo PA-C Work Phone: [facility] Comment on above: Skin infection (Prim barbi Dx) Start: 07-17-2021 [facility] Start: 07-17-2021 End: 07-17-2021 Office outpatient visit 25 minutes García Peoples MD Work Phone: [facility] Comment on above: Benign essential hyp ertension; Coronary artery disease with angina pectoris, unspecified vessel or lesion type, unspecified whether [place] or transplanted heart; Mixed hyperlipidemia; Dry scalp; Frequency of urination; Impotence of organic origin Start: 07-12-2021 [facility] Start: 06-20-2018 End: 06-21-2018 Patient encounter procedure García Peoples [facility] Start: 04-29-2018 End: 04-29-2018 Patient encounter procedure Historical Provider [facility] Start: 04-28-2018 End: 04-28-2018 Patient encounter procedure MONICA ESCAMILLA [facility] Start: 04-16-2018 End: 04-16-2018 Patient encounter procedure Other Other [facility] Start: 04-15-2018 End: 04-15-2018 Telephone encounter Carlo Bermeo Cristela [facility] Comment on above: Other Start: 04-14-2018 End: 04-14-2018 Office outpatient visit 25 minutes Carla Enrique Work Phone: [facility] Comment on above: Benign essential hyp ertension (Primary Dx); Mixed hyperlipidemia; Osteoarthritis of both knees, unspecified osteoarthritis type Start: 04-11-2018 End: 04-11-2018 Telephone encounter Marlen Varma [facility] Comment on above: Medication Managemen t Start: 03-07-2018 End: 03-08-2018 Patient encounter procedure [facility]ie [facility] Start: 02-10-2018 End: 02-10-2018 Patient encounter procedure Other Other [facility] Start: 01-30-2018 End: 01-30-2018 Patient encounter Other Other [facility] Start: 01-13-2018 End: 01-14-2018 Patient encounter procedure Edson Nance Mcduffie Facility:[facility] Start: 01-13-2018 End: 01-14-2018 Patient encounter procedure Edson Nance Mcduffie Facility:[facility] Start: 01-10-2018 End: 01-11-2018 Patient encounter procedure Edson Nance Mcduffie Facility:[facility] Start: 01-08-2018 End: 01-09-2018 Patient encounter procedure Edson Mcduffie Facility:[facility] [facility] Start: 01-08-2018 End: 01-09-2018 Patient encounter procedure García Peoples Facility:[facility] Start: 01-05-2018 End: 01-05-2018 Emergency department patient visit García Peoples Facility:[facility] Start: 07-12-2017 End: 07-13-2017 Patient encounter procedure García Peoples Facility:[facility] Start: 05-10-2017 Postop follow-up visit Monica Escamilla Work Phone: [facility] Start: 04-15-2017 Ambulatory Monica Casanova lity:[facility] Start: 04-15-2017 Postop follow-up visit Monica Escamilla Work Phone: [facility] Start: 03-28-2017 End: 03-28-2017 Ambulatory Monica Escamilla Work Phone: [facility] Start: 03-19-2017 Postop follow-up visit Monica Escamilla Work Phone: [facility] Start: 03-06-2017 End: 03-07-2017 Evaluation and management of inpatient Monica Escamilla Facility:[facility] Start: 02-12-2017 Ambulatory Monica Casanova lity:[facility] Start: 02-12-2017 End: 02-12-2017 Ambulatory Monica Escamilla Work Phone: [facility] Start: 10-23-2016 Postop follow-up visit Monica Escamilla Work Phone: [facility] Start: 02-03-2014 Patient encounter status Sandra Polo PA-C Work Phone: [facility] Procedures Date Procedure Procedure Detail Performing Clinician Start: 10-13-2024 Urnls dip stick/tabl et reagent auto microscopy Dr. Edson Baptiste MD Work Phone: Start: 10-13-2024 Total iron binding c apacity measurement Dr. Edson Baptiste MD Work Phone: Start: 09-09-2024 Basic metabolic pane l calcium total Shahida Yesy R Krause DO Work Phone: Start: 09-02-2024 Antibody screen EDSON JIMENEZ Comment on above: Order Comment: Speci men Type: BLOOD SPECIMENOrdering Facility: [facility] Address: [address] [place] [id number] Performed By: #### T SCR ####[facility] BLOOD BANKCLIA [id number] [place] [address] [place] Start: 08-24-2024 Ct head/brain w/o co ntrast material Max Tang SUPERVISOR HEAVY EQUIPMENT.EARLY CHILDHOOD ASSISTANT Work Phone: Start: 08-09-2024 Antibody screen EDSON JIMENEZ Comment on above: Order Comment: Speci men Type: BLOOD SPECIMENOrdering Facility: [facility] Address: [address] [place] [address] Performed By: #### T SCR ####[facility] BLOOD BANKCLIA [id number] [place] [id number] [facility] Start: 06-29-2024 Colonoscopy flx dx w /collj spec when pfrmd Fritz Archuleta MD Work Phone: Start: 06-27-2024 Radex foot complete minimum 3 views Jennifer Pagan SUPERVISOR HEAVY EQUIPMENT.EARLY CHILDHOOD ASSISTANT Work Phone: Start: 06-23-2024 Radiologic exam knee complete 4/more views Sara Mcdaniel SUPERVISOR HEAVY EQUIPMENT.EARLY CHILDHOOD ASSISTANT Work Phone: Start: 04-10-2024 Radiologic exam ches t 2 views Sondra Curry SUPERVISOR HEAVY EQUIPMENT.EARLY CHILDHOOD ASSISTANT Work Phone: Start: 12-23-2023 Colonoscopy flx dx w /collj spec when pfrmd Evamarylin Ash SUPERVISOR HEAVY EQUIPMENT.EARLY CHILDHOOD ASSISTANT Work Phone: Start: 12-23-2023 SURGICAL PATHOLOGY Miles Ramsay MD Work Phone: Start: 07-03-2023 Ct angio abd&plvis c ntrst mtrl w/wo cntrst img Chris Recinos MD Work Phone: Start: 07-03-2023 Ct angiography chest w/contrast/noncontrast Chris Recinos MD Work Phone: Start: 07-03-2023 Creatinine [Mass/vol ume] in Serum or Plasma [facility] Provider Start: 03-04-2023 Urine culture Start: 01-20-2023 Plain x-ray of hand Start: 04-28-2018 OUTSIDE RADIOLOGY Histo rical Provider Plan of Treatment Date Care Activity Detail Author Start: 08-31-2025 Hepatitis B surface antibody level LDL Cholesterol [facility] Start: 03-02-2025 Hemoglobin A1c measurement HbA1C [facility] Start: 11-16-2024 [facility]enza [facility] Start: 11-11-2024 End: 11-11-2024 Patient encounter procedure RADIO CT SCAN [place] COLLECTION SUPERVISOR Comment on above: ct brain w/o [address] toda y CT BRAIN WO Start: 11-02-2024 End: 11-02-2024 Patient encounter procedure 11/02/2024 10:45 AM EDT OT/PT/Speech Visit [facility] [address] [place] [address] Sushil Garduno, HUMAN RESOURCES EXECUTIVE ASSISTANT [address] [facility] [place], [place] [phone] Consult [facility] Comment on above: Consult Start: 10-26-2024 End: 10-26-2024 Patient encounter procedure 10/26/2024 1:30 PM EDT OT/PT/Speech Visit [facility] [address] [place] [address] Sushil Garduno, HUMAN RESOURCES EXECUTIVE ASSISTANT [address] [facility] [place], [place] [phone] Consult [facility] Comment on above: Consult Start: 10-21-2024 End: 10-21-2024 Patient encounter procedure 10/21/2024 4:30 PM EDT OT/PT/Speech Visit [facility] [address] [place] [address] Sushil Garduno, HUMAN RESOURCES EXECUTIVE ASSISTANT [address] [facility] [place], [place] [phone] Consult [facility] Comment on above: Consult Start: 10-19-2024 End: 10-19-2024 Patient encounter procedure 10/19/2024 2:00 PM EDT OT/PT/Speech Visit [facility] [address] [place] [address] Paz Corona, CCC-LAY OUT MAKER consult [facility] Comment on above: consult Start: 10-12-2024 End: 10-12-2024 Patient encounter procedure 10/12/2024 2:00 PM EDT OT/PT/Speech Visit [facility] [address] [place] [address] Paz Corona CCC-BRIA consult [facility] Comment on above: consult Start: 10-08-2024 End: 10-08-2024 Patient encounter procedure RADIO CT SCAN AK[place] COLLECTION SUPERVISOR Comment on above: CT BRAIN WO [address] toda y Start: 10-05-2024 End: 10-05-2024 Patient encounter procedure 10/05/2024 2:00 PM EDT OT/PT/Speech Visit [facility] [address] [place] [address] Paz Corona CCC-LAY OUT MAKER consult [facility] Comment on above: consult Start: 10-02-2024 End: 10-02-2024 ambulatory [facility] Comment on above: Subdural hematoma Start: 09-30-2024 End: 09-30-2024 Patient encounter procedure 09/30/2024 2:15 PM EDT OT/PT/Speech Visit [facility] [address] [place] [address] Tameka Rock, PT Consult [facility] Comment on above: Consult Start: 09-21-2024 End: 09-21-2024 Patient encounter procedure 09/21/2024 1:00 PM EDT OT/PT/Speech Visit [facility] [address] [place] [address] Paz Corona CCC-BRIA consult [facility] Comment on above: consult Start: 09-10-2024 End: 09-10-2024 Patient encounter procedure 09/10/2024 11:30 AM EDT Office Visit [facility] [address] [place] [phone] Marni Catherine, SUPERVISOR HEAVY EQUIPMENT.[facility] [address] [facility] [place] [address] post op [facility] Comment on above: post op Start: 09-07-2024 End: 09-07-2024 Patient encounter procedure 09/07/2024 9:00 AM EDT Appointment [facility] [address] [place] [address] CT BRAIN WO IVCON [facility] Comment on above: CT BRAIN WO IVCON Start: 09-01-2024 End: 09-01-2024 Patient encounter procedure 09/01/2024 9:15 AM EDT OT/PT/Speech Visit [facility] [address] [place] [address] Tameka Rock, PT Consult/Subdural hematoma [facility] Comment on above: Consult/Subdural hematoma Start: 08-27-2024 End: 08-27-2024 Patient encounter procedure 08/27/2024 1:00 PM EDT Office Visit [facility] [address] [facility] [address] Marni Catherine, SUPERVISOR HEAVY EQUIPMENT.EARLY CHILDHOOD ASSISTANT [address] [facility] [place] [address] 1st post op [facility] Comment on above: 1st post op Start: 08-24-2024 End: 08-24-2024 Patient encounter procedure 08/24/2024 11:00 AM EDT Appointment [facility]IO [facility] [address] [place] [address] [address] BRAIN WO IVCON [facility] Comment on above: CT BRAIN WO IVCON Start: 08-19-2024 End: 08-19-2024 Patient encounter procedure 08/19/2024 9:15 AM EDT OT/PT/Speech Visit [facility] [address] [place] [address] Qian Mccain, OTR/L [address] [place] [address] Consult/Subdural hematoma [facility] Comment on above: Consult/Subdural hematoma Start: 08-10-2024 End: 08-10-2024 Admission to same day surgery center 08/10/2024 8:00 AM EDT - 08/10/2024 10:59 AM EDT Surgery [facility] [address] [place] [address] Christine Francois I, MD [address] [place], [place] [address] CRANIOTOMY FOR EVACUATION OF SUPRATENTORIAL SUBDURAL HEMATOMA [facility] Comment on above: CRANIOTOMY FOR EVACUATION OF SUPRATENTOR IAL SUBDURAL HEMATOMA Start: 08-10-2024 End: 08-10-2024 Craniectomy hmtma supratentorial extra/subdural CRANIOTOMY FOR EVACUATION OF SUPRATENTORIAL SUBDURAL HEMATOMA Subdural hematoma (HCC) 08/10/2024 8:00 AM EDT [facility] Start: 08-10-2024 Subsequent hospital visit by physician 08/10/2024 8:00 AM EDT Hospital Encounter [facility] [place] [address] Christine Francois I, MD [address] [place], [place] [phone] Subdural hematoma (HCC) [S06.5XAA] [facility] Comment on above: Subdural hematoma (HCC) [S06.5XAA] Start: 07-14-2024 End: 07-14-2024 Patient encounter procedure 07/14/2024 9:15 AM EDT Office Visit Podiatry [address] [place], [place] [phone] Monica Marie [address] [place], [place] [phone] appt rescheduled on 06/29/24 /// Dx: Foot injury, left, initial encounter [S99.922A] Podiatry Comment on above: appt rescheduled on 04/14/25 //// Dx: Fo ot injury, left, initial encounter [S99.922A] Start: 07-13-2024 End: 07-13-2024 Patient encounter procedure 07/13/2024 9:00 AM EDT Office Visit Podiatry [address] [place] [address] YueGuevara crandallew [address] [place] [address] Dx: Foot injury, left, initial encounter [S99.922A] Podiatry Comment on above: Dx: Foot injury, left, initial encounter [S99.922A] Start: 06-29-2024 End: 06-29-2024 Patient encounter procedure Gastroenterology Comment on above: Polyp of colon, unspecified part of colo n, unspecified type [K63.5] Likely benign polypo id lesion in the distal transverse colon.//Dr Ramsay//ESD Start: 06-26-2024 End: 06-26-2024 Patient encounter procedure 06/26/2024 11:30 AM EDT Office Visit [facility] [place] [address] [place] [address] Reynaldo Voss V, DO [address] [place] [address] Dx: Pain [R52] Family Medicine [facility] Comment on above: Dx: Pain [R52] Start: 03-18-2024 Advance Directive Discussion Advance Directive Discussion [facility] Start: 03-18-2024 Medicare Advantage Annual Wellness Visit Medicare Advantage Annual Wellness Visit [facility] Start: 01-22-2024 End: 01-22-2024 Patient encounter procedure 01/22/2024 11:30 AM EST Office Visit Colorectal Surgery [address] [place] [address] Fritz Archuleta MD [address] [place], [place] [phone] needs to have saline lift to this polyp - colon 12/22 Colorectal Surgery Comment on above: needs to have saline lift to this polyp - colon 12/22 Start: 12-23-2023 End: 12-23-2023 Patient encounter procedure 12/23/2023 11:45 AM EDT Appointment Ambulatory Surgery [address] [place], [place] [phone] Manuel Ramsay MD [address] [place] [place] [address] Ambulatory Surgery Start: 11-17-2023 Covid-19 Vaccine () Covid-19 Vaccine () [facility] Start: 11-17-2023 Covid-19 Vaccine () Covid-19 Vaccine () [facility] Start: 11-17-2023 Influenza vaccination Influenza Vaccine (#1) [facility] Start: 06-27-2023 Hepatitis B surface antibody level LDL CHOLESTEROL [facility] Start: 03-27-2023 End: 12-23-2023 Ct angio abd&plvis cntrst mtrl w/wo cntrst img CTA ABD/PEL WO/W IVCON Radiology Routine Abdominal aortic aneurysm (AAA) without rupture, unspecified part (HCC) Expected: 03/27/2023, Expires: 12/23/2023 [facility] Work Phone: Comment on above: Expected: 03/27/2023, Expires: 4 Start: 03-27-2023 End: 12-23-2023 Ct angiography chest w/contrast/noncontrast CTA CHEST (NONGATED) WO/W IVCON Radiology Routine Abdominal aortic aneurysm (AAA) without rupture, unspecified part (HCC) Expected: 03/27/2023, Expires: 12/23/2023 [facility] Work Phone: Comment on above: Expected: 03/27/2023, Expires: 4 Start: 03-18-2023 Advance Directive Discussion Advance Directive Discussion [facility] Start: 03-18-2023 Behavioral Health Screening Behavioral Health Screening [facility] Start: 01-20-2023 [facility] Start: 11-16-2022 Covid-19 Vaccine ( season) Covid-19 Vaccine () [facility] Start: 11-16-2022 Influenza vaccination INFLUENZA (#1) [facility] Start: 11-14-2022 End: 11-14-2022 Patient encounter procedure 11/14/2022 Office Visit Family Medicine García Peoples MD [address] [place] [phone] [facility] Start: 07-02-2022 End: 07-02-2022 Patient encounter procedure 07/02/2022 Office Visit Family Medicine García Peoples MD [address] [place] [phone] [facility] Start: 03-18-2022 ADVANCE DIRECTIVE DISCUSSION ADVANCE DIRECTIVE DISCUSSION [facility] Start: 03-18-2022 DEPRESSION ASSESSMENT DEPRESSION ASSESSMENT [facility] Start: 01-15-2022 End: 01-15-2022 Patient encounter procedure 01/15/2022 Office Visit [facility] García Benson MD [address] [place] [phone] [facility] Start: 01-01-2022 End: 01-01-2023 Comprehensive metabolic 2000 panel - Serum or Plasma COMPREHENSIVE METABOLIC PANEL Lab Routine Mixed hyperlipidemia Expected: 01/01/2022 (Approximate), Expires: 01/01/2023 [facility] Comment on above: Expected: 01/01/2022 (Approximate), Expi res: 01/01/2023 Start: 01-01-2022 End: 01-01-2023 LIPID PANEL W CALCULATED LDL LIPID PANEL W CALCULATED LDL Lab Routine Mixed hyperlipidemia Expected: 01/01/2022 (Approximate), Expires: 01/01/2023 [facility] Comment on above: Expected: 01/01/2022 (Approximate), Expi res: 01/01/2023 Start: 11-16-2021 Influenza vaccination INFLUENZA (#1) [facility] Start: 07-17-2021 End: 07-17-2022 Comprehensive metabolic 2000 panel - Serum or Plasma COMPREHENSIVE METABOLIC PANEL Lab Routine Mixed hyperlipidemia Expected: 07/17/2021 (Approximate), Expires: 07/17/2022 [facility] Comment on above: Expected: 07/17/2021 (Approximate), Expi res: 07/17/2022 Start: 07-17-2021 End: 07-17-2022 LIPID PANEL W CALCULATED LDL LIPID PANEL W CALCULATED LDL Lab Routine Mixed hyperlipidemia Expected: 07/17/2021 (Approximate), Expires: 07/17/2022 [facility] Comment on above: Expected: 07/17/2021 (Approximate), Expi res: 07/17/2022 Start: 07-03-2021 COVID-19 VACCINE (3 - Booster) COVID-19 VACCINE (3 - Booster) [facility] Start: 06-02-2021 COVID-19 VACCINE (4 - Booster for Moderna series) COVID-19 VACCINE (4 - Booster for Moderna series) [facility] Start: 03-30-2021 COVID-19 VACCINE (3 - Booster) COVID-19 VACCINE (3 - Booster) [facility] Start: 03-30-2021 COVID-19 VACCINE (4 - Booster for Moderna series) COVID-19 VACCINE (4 - Booster for Moderna series) [facility] Start: 03-30-2021 COVID-19 VACCINE (4 - Moderna series) COVID-19 VACCINE (4 - Moderna series) [facility] Start: 03-18-2021 ADVANCE DIRECTIVE DISCUSSION ADVANCE DIRECTIVE DISCUSSION [facility] Start: 10-08-2019 Shingrix Vaccine (3 of 3) Shingrix Vaccine (3 of 3) [facility] Start: 10-08-2019 Zoster vaccine hzv live for subcutaneous use ZOSTER (SHINGLES) VACCINE (3 of 3) [facility] Start: 07-01-2018 End: 07-01-2018 Ambulatory 07/01/2018 Office Visit Family Medicine García Peoples MD [address] [place] [address] [phone] [facility] Start: 04-28-2018 Ambulatory 04/28/2018 Office Visit Sports Medicine Monica Escamilla MD [address] [place] [address] [phone] [facility] Start: 04-14-2018 End: 04-14-2018 Ambulatory 04/14/2018 Office Visit Family Medicine EnriqueBiancaty Benjamin, SUPERVISOR HEAVY EQUIPMENT-EARLY CHILDHOOD ASSISTANT [address] [place] [address] [phone] [facility] Start: 12-21-2017 SERUM CREATININE SERUM CREATININE [facility] Start: 11-16-2017 Influenza vaccination INFLUENZA VACCINE (#1) [facility] Work Phone: Start: 10-25-2017 Colonoscopy [facility] Start: 10-25-2017 Protein mass conc COLON CANCER SCREENING DISCUSSION [facility] Work Phone: Start: 10-25-2017 Screening for malignant neoplasm of colon COLORECTAL CANCER SCREENING DISCUSSION [facility] Start: 05-10-2017 Ambulatory 05/10/2017 Follow-Up Sports Medicine Monica Escamilla MD [address] [place] [address] [phone] [facility] Start: 04-15-2017 Ambulatory 04/15/2017 Follow-Up Sports Medicine Monica Escamilla MD [address] [place] [address] [phone] [facility] Start: 03-19-2017 Ambulatory 03/19/2017 Follow-Up Sports Medicine Monica Escamilla MD [address] [place] [address] [phone] [facility] Start: 03-06-2017 Ambulatory 03/06/2017 Scanned Document Sports Medicine Monica Escamilla MD [address] [place] [address] [phone] [facility] Start: 03-06-2017 Inpatient Encounter 03/06/2017 Hospital Encounter Monica Escamilla MD [address] [place], [place] [phone] [facility] Start: 02-25-2017 Ambulatory 02/25/2017 Surgical Consult Sports Medicine Monica Escamilla MD [address] [place] [address] [phone] [facility] Start: 11-16-2016 Influenza vaccination SEQUENTIAL INFLUENZA VACCINE (#1) [facility] Work Phone: Start: 11-16-2016 SEQUENTIAL INFLUENZA VACCINE (#1) SEQUENTIAL INFLUENZA VACCINE (#1) [facility] Work Phone: Start: 03-30-2016 Pneumococcal vaccination [facility] Start: 10-15-2015 HEMOGLOBIN/HEMATOCRIT HEMOGLOBIN/HEMATOCRIT [facility] Start: 10-13-2015 Glaucoma screening Dilated Retinal Exam [facility] Start: 10-13-2015 Hepatitis C antibody, confirmatory test DILATED RETINAL EXAM [facility] Start: 01-30-2015 Hepatitis B surface antibody level LDL CHOLESTEROL [facility] Start: 08-05-2014 PNEUMOCOCCAL: 65+ (2 - PCV) PNEUMOCOCCAL: 65+ (2 - PCV) [facility] Start: 07-30-2014 Hemoglobin A1c measurement HbA1C [facility] Start: 07-30-2014 Hemoglobin A1c/Hemoglobin.total in Blood HBA1C [facility] Start: 06-14-2010 Zoster vaccine hzv live for subcutaneous use ZOSTER (SHINGLES) VACCINE (2 of 3) [facility] Start: 2006 Pneumococcal vaccination PNEUMOCOCCAL VACCINE AGE 65+ (1 of 2 - PCV13) [facility] Start: 2006 PNEUMOCOCCAL VACCINE AGE 65+ (1 of 2 - PCV13) PNEUMOCOCCAL VACCINE AGE 65+ (1 of 2 - PCV13) [facility] Work Phone: Start: 2001 Zoster vacc, sc ZOSTER VACCINE [facility] Work Phone: Start: 1991 SHINGRIX VACCINE (1 of 2) SHINGRIX VACCINE (1 of 2) [facility] Start: 01-13-1960 Urine microalbumin profile [facility] Start: 01-13-1960 End: 01-13-1960 Third diphtheria, tetanus and acellular pertussis (DTaP) vaccination TDAP (ADULT) [facility] Start: 1959 ANNUAL PCP TEAM CHRONIC DISEASE VISIT ANNUAL PCP TEAM CHRONIC DISEASE VISIT [facility] Start: 1959 Anxiety Screening Anxiety Screening [facility] Start: 1959 BP CONTROLLED (<130/80) BP CONTROLLED (<130/80) [facility] Start: 1959 Depression Screening Depression Screening [facility] Start: 1959 End: 1959 Tetanus vaccination TETANUS [facility] Start: 1953 Adult depression screening assessment DEPRESSION SCREENING [facility] Start: 1951 3 comp foot exam completed DIABETIC FOOT EXAM [facility] Start: 1951 Diabetic foot examination Diabetic Foot Exam [facility] Start: 1951 Hepatitis B screening URINE ALBUMIN:CREATININE RATIO [facility] Start: 1941 Colonoscopy COLONOSCOPY [facility] Work Phone: Start: 1941 TETANUS EVERY 10 YR TETANUS EVERY 10 YR [facility] Work Phone: Start: 1941 End: 1941 Tetanus vaccination [facility] End: 09-26-2025 CT Head WO contrast CT BRAIN WO IVCON Radiology Routine Subdural hematoma (HCC) 1 Occurrences starting 08/27/2024 until 09/26/2025 [facility] Work Phone: Comment on above: 1 Occurrences starting 08/27/2024 until 09/26/2025 End: 10-17-2025 CT Head WO contrast CT BRAIN WO IVCON Radiology Routine Subdural hematoma (HCC) 1 Occurrences starting 09/17/2024 until 10/17/2025 [facility] Work Phone: Comment on above: 1 Occurrences starting 09/17/2024 until 10/17/2025 CT Head WO contrast CT BRAIN WO IVCON Radiology Routine Subdural hematoma (HCC) 09/17/2024 9:[address] [facility] Work Phone: End: 11-07-2025 CT Head WO contrast CT BRAIN WO IVCON Radiology Routine Subdural hematoma (HCC) 1 Occurrences starting 10/08/2024 until 11/07/2025 [facility] Work Phone: Comment on above: 1 Occurrences starting 10/08/2024 until 11/07/2025 CT Head WO contrast CT BRAIN WO IVCON Radiology Routine Subdural hematoma (HCC) 10/08/2024 10:[address] 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 Work Phone: Comment on above: 1 Occurrences starting 11/23/2022 until 11/24/2023 End: 01-27-2025 Flexible sigmoidoscopy study COLONOSCOPY DIAGNOSTIC Endoscopy Routine Polyp of colon, unspecified part of colon, unspecified type 1 Occurrences starting 01/28/2024 until 01/27/2025 [facility] Work Phone: Comment on above: 1 Occurrences starting 01/28/2024 until 01/27/2025 End: 02-05-2025 Flexible sigmoidoscopy study COLONOSCOPY DIAGNOSTIC Endoscopy Routine Polyp of colon, unspecified part of colon, unspecified type 1 Occurrences starting 02/06/2024 until 02/05/2025 [facility] Work Phone: Comment on above: 1 Occurrences starting 02/06/2024 until 02/05/2025 Patient Education ED Hand Sprain [facility] Work Phone: Patient referral [facility] Work Phone: End: 12-04-2024 Screening colonoscopy COLONOSCOPY SCREENING Endoscopy Routine Encounter for screening for malignant neoplasm of colon History of colonic polyps 1 Occurrences starting 12/05/2023 until 12/04/2024 [facility] Work Phone: Comment on above: 1 Occurrences starting 12/05/2023 until 12/04/2024 Tissue Pathology bio psy report [facility] Work Phone: Comment on above: Release Upon Ordering for 1 Occurrences starting 06/29/2024, 1 completed [facility] Immunizations Immunization Date Immunization Notes Care Provider Lee herrera 12-10-2023 influenza, seasonal, injectable, preservative free Sara Mcdaniel APRN.EARLY CHILDHOOD ASSISTANT Work Phone: [facility] 12-10-2023 influenza virus vacc ine, unspecified formulation Marni Carltonkarina SUPERVISOR HEAVY EQUIPMENT.EARLY CHILDHOOD ASSISTANT Work Phone: [facility] 02-22-2023 respiratory syncytia l virus (RSV) vaccine, adjuvanted (AREXVY) Sara Mcdaniel APRN.EARLY CHILDHOOD ASSISTANT Work Phone: [facility] 01-30-2023 pneumococcal conjuga te (PCV20) vaccine, 20 valent (PREVNAR 20) Sara Mcdaniel APRN.EARLY CHILDHOOD ASSISTANT Work Phone: [facility] 12-14-2022 influenza, injectabl e, quadrivalent, preservative free Sara Mcdaniel APRN.EARLY CHILDHOOD ASSISTANT Work Phone: [facility] 12-14-2022 influenza virus vacc ine, unspecified formulation Gilda Chopra SUPERVISOR HEAVY EQUIPMENT.COLLECTION SUPERVISOR Work Phone: [facility] 12-11-2021 influenza (HD-IIV4) vaccine, age 65+ yr, high dose, quadrivalent, PF (FLUZONE HIGH-DOSE) Sara Mcdaniel APRN.EARLY CHILDHOOD ASSISTANT Work Phone: [facility] 12-19-2020 influenza (HD-IIV4) vaccine, age 65+ yr, high dose, quadrivalent, PF (FLUZONE HIGH-DOSE) Sara Mcdaniel APRN.EARLY CHILDHOOD ASSISTANT Work Phone: [facility] 06-30-2020 COVID-19 vaccine, mR ANTHONY, Moderna 0.5 ML García Peoples MD Work Phone: [facility] 11-30-2019 Influenza, High-dose Seasonal, Quadrivalent, Preservative Free García Peoples MD Work Phone: [facility] 08-13-2019 zoster vaccine recombinant García Peoples MD Work Phone: [facility] 08-13-2019 zoster vaccine, unspecified formulation García Peoples MD Work Phone: [facility] 12-26-2018 influenza, high dose seasonal, preservative-free García Peoples MD Work Phone: [facility] 12-13-2017 influenza, high dose seasonal, preservative-free García Peoples MD Work Phone: [facility] 12-30-2015 influenza, high dose seasonal, preservative-free García Peoples MD Work Phone: [facility] 12-30-2015 influenza virus vacc ine, unspecified formulation Carla Enrique [facility] Work Phone: 09-05-2015 hepatitis A and hepatitis B vaccine García Peoples MD Work Phone: [facility] 04-04-2015 hepatitis A and hepatitis B vaccine García Peoples MD Work Phone: [facility] 03-30-2015 pneumococcal polysaccharide vaccine, 23 valent Other Other [facility] Work Phone: 03-01-2015 hepatitis A and hepatitis B vaccine García Peoples MD Work Phone: [facility] 12-08-2013 influenza, seasonal, injectable, preservative free García Peoples MD Work Phone: [facility] 12-08-2013 influenza virus vacc ine, unspecified formulation Other Other [facility] Work Phone: 08-05-2013 pneumococcal polysaccharide vaccine, 23 valent García Peoples MD Work Phone: [facility] 07-24-2013 pneumococcal polysaccharide vaccine, 23 valent Other Other [facility] Work Phone: 12-03-2012 influenza virus vacc ine, whole virus Other Other [facility] Work Phone: 01-25-2012 influenza, high dose seasonal, preservative-free Other Other [facility] Work Phone: 04-19-2010 zoster vaccine, live Other Other [facility] Work Phone: 04-19-2010 zoster vaccine, unspecified formulation Historical Provider [facility] 01-02-2010 influenza, high dose seasonal, preservative-free Other Other [facility] Work Phone: 02-18-2009 influenza virus vacc ine, whole virus Other Other [facility] Work Phone: 01-15-2009 novel influenza-H1N1 -09, preservative-free, injectable García Peoples MD Work Phone: [facility] 01-23-2008 influenza virus vacc ine, whole virus Other Other [facility] Work Phone: 01-20-2007 influenza virus vacc ine, whole virus Other Other [facility] Work Phone: 01-21-2006 influenza virus vacc ine, whole virus Other [facility] Work Phone: Payers Date Payer Category Payer Self-pay [id number] 2022 Medicare (Managed Care) [facility] MEDI CARE ADVANTAGE PPO [id number] 2022 Medicare [id number] 2017 Medicare [id number] 3 2017 Medicare [id number] 2017 Medicare [id number] 2017 Medicare [id number] [id number] 3 2017 Private Health Insurance 2016 Medicare MEDICARE MEDICAR E A AND B xxxxxxxxxx 2016-Present [place] xxxxxxxxxx [id number] 2016 Unknown [id number] 2.16.840.1.741388.3.249.1 3 2016 Unknown ANTHEM ANTHEM HM O PPO POS xxxxxxxxxxxx 2016-Present xxxxxxxxxxxx [id number] .[id number] 2005 Medicare [id number] 2.16.840.1.007665.3.249.1 3 1941 Unknown [id number] 2.16840.1.717300.3.579.2 .717 1941 Unknown [id number] 2.16.840.1.893366.3.579.2 .717 1941 Unknown [id number] 2.16.840.1.790113.3.579.2 .717 1941 Unknown [id number] 2.16.840.1.350667.3.579.2 .717 1941 Unknown [id number] 2.16.840.1.134370.3.579.2 .717 1941 Unknown [id number] 2.16.840.1.865189.3.579.2 .717 1941 Unknown [id number] 2.16.840.1.843992.3.579.2 .717 1941 Unknown [id number] 2.16.840.1.937993.3.579.2 .717 1941 Unknown [id number] 2.16.840.1.657272.3.579.2 .717 1941 Unknown [id number] 2.16.840.1.364991.3.579.2 .717 1941 Unknown [id number] 2.16.840.1.312288.3.579.2 .903 1941 Unknown [id number] 2.16.840.1.972578.3.579.2 .983 1941 Unknown [id number] 2.16.840.1.211175.3.579.2 .983 1941 Unknown [id number] 2.16.840.1.200581.3.579.2 .983 1941 Unknown [id number] 2.16.840.1.957519.3.579.2 .983 1941 Unknown [id number] 2.16.840.1.137264.3.579.2 .983 1941 Unknown [id number] 2.16.840.1.388917.3.579.2 .983 1941 Unknown [id number] 2.16.840.1.337101.3.579.2 .983 1941 Unknown [id number] 2.16.840.1.444215.3.579.2 .983 Unknown [facility] [id number] Unknown [id number]. 1.13.159.2 .7.9.805578.63551.315 Unknown [id number] Unknown [id number] 2.16.840.1.609468.3.579.2 .462 Unknown [id number] 2.16.840.1.656742.3.579.2 .462 Unknown [id number] 2.16.840.1.362166.3.579.2 .462 Unknown [id number] 2.16.840.1.306918.3.579.2 .462 Unknown [id number] 2.16.840.1.300481.3.579.2 .462 Unknown [id number] 2.16.840.1.852359.3.579.2 .462 Social History Date Type Detail Facility Start: 05-10-2017 End: 01-01-2022 Tobacco smoking status [facility] Former smoker [facility] Start: 1940 Sex Assigned At Not on file [facility] Work Phone: Start: 01-14-2018 End: 01-22-2024 Tobacco smoking status [facility] Current every day smoker [facility] History of tobacco use Pipe Smoker [facility] Work Phone: Start: 04-14-2018 End: 01-22-2024 Tobacco use and exposure Smokeless tobacco non-user [facility] Start: 07-17-2021 End: 07-02-2022 Alcohol intake Current non-drinker of alcohol (finding) [facility] Start: 10-30-2021 End: 12-05-2023 Alcohol intake Current drinker of alcohol (finding) [facility] Start: 02-11-2019 History SDOH Alcohol Frequency 2 [facility] Start: 02-11-2019 History SDOH Alcohol Std Drinks 1 [facility] Start: 10-30-2021 Tobacco Comment pipe for 50 years /quit [facility] Start: 10-20-2021 End: 10-30-2021 Exposure to SARS-CoV-2 (event) Not sure [facility] Work Phone: History of tobacco use Current smoker [facility] Start: 02-11-2019 End: 07-03-2023 History of Social function [facility] Start: 02-11-2019 End: 07-03-2023 Alcohol Use Disorder Identification Test - Consumption [AUDIT-C] [facility] How often to you hav e a drink containing alcohol? Monthly or less [facility] How many standard dr inks containing alcohol do you have on a typical day? 1 or 2 [facility] Start: 02-17-2012 Frequency of Binge Drinking Not on file [facility] Start: 01-20-2023 End: 01-20-2023 Tobacco smoking status [facility] Unknown if ever smoked [facility] Start: 1940 Sex Assigned At Male [facility] Start: 07-03-2023 Tobacco Comment pipe for 50 years /quit started again with pipe [facility] Start: 07-03-2023 Alcohol Comment rarely [facility] History of tobacco use Passive smoker [facility] Start: 01-22-2024 End: 10-08-2024 Alcoholic beverage intake Ex-drinker (finding) [facility] Has the [employer], [employer], or water [employer] threatened to shut off services in your home in past 12Mo No [facility] (I/We) worried wheth er (my/our) food would run out before (I/we) got money to buy more. Never true [facility] Start: 11-09-2023 Tobacco smoking status [facility] Current some day smoker [facility] Medical Equipment Procedure Code Equipment Code Equipment Origin al Text Equipment Identifier Dates Grft Glwv Thorac o Abd Trifur - [id number] Start: 02-04-2014 Comment on above: Description: ascendi ng aorta repair [place] Cv 6x6in Thk1.65mm Ptfe - [id number] Start: 02-04-2014 Comment on above: Description: bard pt fe felt--pledgets/donuts Graft Vasc 30cm 24mm Hemshld - [id number] Start: 02-04-2014 Comment on above: Description: repair ascending aorta Graft Duragen Pl us Bovine Collagen Matrix 2x2in Soft Tissue Patch - [id number] Start: 08-10-2024 L1 Neuro [place] [facility] Cov Ultraone Contour W/Tab Scrw 5 Hl 12mm D T0.35mm Ti - [id number] Start: 08-10-2024 Lvl 1 Neuro Plt Ultraone Str W/Tab Scrw 2 Hole 14mm T0.35mm Ti-6al-4v 1ea - [id number] Start: 08-10-2024 L1 Neuro [facility] Cov Ultraone Contour W/Tab Scrw 6 Hl 18mm D T0.35mm Ti - [id number] Start: 08-10-2024 Scrw Ond Mandib Ul Lp Df 1.5x4 [id number] Start: 08-10-2024 Device Proglide Perclose 6fr Closure Suture Mediate Knot Pusher Sterile - [id number] Start: 08-31-2024 Device Angio-Sea l Vip 6fr .035in Collagen 70cm Closure Valuelink Guidewire - [id number] Start: 08-31-2024 Goals Date Patient Goal Desired Activity /State Personal health goal Functional Status Date Assessment Result Facility 09-06-2024 Are you deaf, or do you have serious difficulty hearing No 09/06/2024 12:01 PM Jailene Abdullahi RN [facility] 09-06-2024 Are you blind, or do you have serious difficulty seeing, even when wearing glasses No 09/06/2024 12:01 PM Jailene Abdullahi RN No [facility] 09-06-2024 Do you have serious difficulty walking or climbing stairs No 09/06/2024 12:01 PM Jailene Abdullahi RN [facility] 09-06-2024 Do you have difficul ty dressing or bathing No 09/06/2024 12:01 PM Jailene Abdullahi RN [facility] 09-06-2024 Because of a physica l, mental, or emotional condition, do you have difficulty doing errands alone such as visiting a physician's office or shopping No 09/06/2024 12:01 PM Jailene Abdullahi RN [facility] 08-13-2024 Are you deaf, or do you have serious difficulty hearing No 08/13/2024 3:17 PM EDT Heather Buckley, YUNIOR No [facility] 08-13-2024 Are you blind, or do you have serious difficulty seeing, even when wearing glasses No 08/13/2024 3:17 PM DELVINT Heather Buckley, YUNIOR No [facility] 08-13-2024 Do you have serious difficulty walking or climbing stairs No 08/13/2024 3:17 PM EDT Heather Buckley, YUNIOR No [facility] 08-13-2024 Do you have difficul ty dressing or bathing No 08/13/2024 3:17 PM EDT Heather Buckley, YUNIOR No [facility] 08-13-2024 Because of a physica l, mental, or emotional condition, do you have difficulty doing errands alone such as visiting a physician's office or shopping Yes 08/13/2024 3:17 PM EDT Heather Buckley, YUNIOR Yes [facility] 10-07-2014 Are you deaf, or do you have serious difficulty hearing No 10/07/2014 3:33 PM EDT Braxton Ingram MA No [facility] 10-07-2014 Are you blind, or do you have serious difficulty seeing, even when wearing glasses No 10/07/2014 3:33 PM DELVINT Braxton Ingram MA No [facility] 10-07-2014 Do you have serious difficulty walking or climbing stairs No 10/07/2014 3:33 PM DELVINT Braxton Ingram MA No [facility] 10-07-2014 Do you have difficul ty dressing or bathing No 10/07/2014 3:33 PM DELVINT Braxton Ingram MA No [facility] 10-07-2014 Because of a physica l, mental, or emotional condition, do you have difficulty doing errands alone such as visiting a physician's office or shopping No 10/07/2014 3:33 PM DELVINT Braxton Ingram MA No [facility] Mental Status Date Assessment Result Facility 09-06-2024 Because of a physica l, mental, or emotional condition, do you have serious difficulty concentrating, remembering, or making decisions No 09/06/2024 12:01 PM EDT Jailene Dhaliwal RN No [facility] 08-13-2024 Because of a physica l, mental, or emotional condition, do you have serious difficulty concentrating, remembering, or making decisions No 08/13/2024 3:17 PM EDT Heather Buckley RN [facility] 10-07-2014 Because of a physica l, mental, or emotional condition, do you have serious difficulty concentrating, remembering, or making decisions No 10/07/2014 3:33 PM EDT Braxton Ingram MA No [facility] Clinical Notes 02-07-2014 to 10-26-2024 Sushil Garduno, HUMAN RESOURCES EXECUTIVE ASSISTANT - 10/26/2024 3:16 PM EDTPSushil little PTA - 10/26/2024 2:14 PM EDTTelephone Encounter - Marni Catherine APRN.EARLY CHILDHOOD ASSISTANT - 10/13/2024 4:31 PM EDTPatient Instructions Note Date & Type Note Facility 10-26-2024 Note [facility] 10-26-2024 History of Presen t illness Narrative Episode Visit Count: 3 Therapist That Will Accept/Oversee The Plan Of Care: [place] Start of Care Date: 09/30/24 Onset Date: 08/10/24 Plan of Care Certification Date: 09/30/24 Next Certification Due Date: 11/29/24 Patient Identified by Name and Date of : Yes REHABILITATION AND SPORTS THERAPY PHYSICAL THERAPY TREATMENT NOTE ASSESSMENT: Carlito Chatterjee tolerated the session with expected muscle soreness. He demonstrated difficulty with isolating hip extensors from hamstrings and weakness in toe extensors in weight bearing and improvements in standing static balance . The patient will continue to benefit from ongoing skilled physical therapy to progress toward set goals. 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 compliant with HEP Pain: Pain Pain Level: 0 Post Treatment Pain Post Treatment Pain Level: No Change OBJECTIVE MEASURES WITH LEVEL OF FUNCTION: TREATMENT: Therapeutic Exercise: 1: nu step seat 10 level 3 5b min 2: slant board 1 min 3: long sitting with wegde at back hamstring and towel calf stretch 15 second hold x 3 right , demonstrated left 4: attempted prone bent knee hip extension unable 5: standing calf raises 10 x 6: standing back to wall ankle dorsi flexion with toe extension very difficult 7: *long sitting ankle dorsi flexion with toe extension green tb 10 x 2 right /left Skilled Intervention: Patient was educated in proper exercise technique and purpose for exercises. Reviewed and educated patient on additions/changes for home exercise program as above (*). Skilled judgment was used in selection of appropriate interventions. Provided written instruction for home exercise program to facilitate proper performance and compliance. Neuromuscular Re-Education: 1: tin man in corner 10 x retro/10 x forward Skilled Intervention: assess static standing balance Billing Therapeutic Exercise Treatment Minutes: 45 Neuromuscular Re-Education Treatment Minutes: 4 Skilled Treatment Time Minutes (timed and untimed codes): 49 Total Session Time (minutes): 49 Session Start Time : 1331 Session Stop Time : 1420 Sushil Garduno PTA Program_ID:[id number] Access Code: [email or web address] URL: [email or web address] Date: 10-26-2024 Prepared By: Qian Mccain Program Notes Exercises - Figure 4 Hamstring Stretch - 1-2 x daily - 5 x weekly - 2-3 sets - 10 reps - Walking Around Cones with Large Steps - 1-2 x daily - 5 x weekly - 2-3 sets - 10 reps - Ankle Dorsiflexion with Resistance - 1-2 x daily - 5 x weekly - 2-3 sets - 10 reps - Supine Leg Press - 1-2 x daily - 5 x weekly - 2-3 sets - 10 reps Patient Education - cc PD PWR UP Sitting Routine documented in this encounter [facility] 10-21-2024 Reanna Perez [facility] 10-13-2024 Telephone encounter Note Contacted the patient's regarding CT B final results. Discussed that imaging looks improved and appears more chronic. There is still evidence of a fluid collection however. 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 Please continue with activity restrictions as previously discussed. Follow up with Dr. Francois as scheduled with repeat CT B. I told her to please contact the office with any new or concerning issues or present to the ED if needed. BLAKE Ortega Neurosurgery Nurse Practitioner [facility] 4:33 PM 10/13/2024 [facility] 10-13-2024 Miscellaneous Notes Contacted the patient's regarding CT B final results. Discussed that imaging looks improved and appears more chronic. There is still evidence of a fluid collection however. 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 Please continue with activity restrictions as previously discussed. Follow up with Dr. Francois as scheduled with repeat CT B. I told her to please contact the office with any new or concerning issues or present to the ED if needed. BLAKE Ortega Neurosurgery Nurse Practitioner [facility] 4:33 PM 10/13/2024 documented in this encounter [facility] 10-12-2024 Note [facility] 10-12-2024 History of Presen t illness Narrative Summary: Speech Therapy Discharge Images from the original note were not included. Episode Visit Count: Visit count could not be calculated. Make sure you are using a visit which is associated with an episode. Therapist That Will Accept/Oversee The Plan Of Care: Paz Corona Start of Care Date: 09/21/24 Onset Date: 08/10/24 Plan of Care Certification Date: 09/21/24 Next Certification Due Date: 12/17/24 Patient Identified by Name and Date of : Yes [facility] REHABILITATION AND SPORTS THERAPY SPEECH THERAPY DISCONTINUANCE OF CARE PLAN OF CARE UPDATE: Impression: Functional communication without limitations in: Speech, Voice, Fluency Communication deficits identified: Cognitive-Linguistic deficits Progress Toward Goals: Goal Met Functional gains: Increased ability to recall vital ADL medical and social information, Increased use of compensatory strategies, Increase expressive language skills, Increased efficacy related to the independent use of the taught compensatory strategies for memory and attention. RECOMMENDATIONS: LAY OUT MAKER Recommendations: Discontinue Speech Therapy Results and Recommendations Discussed With: Patient Goals for Episode of Care Updated: 10/12/2024 Goals for Episode of Care: created on 09/21/2024 through 12/17/24 COGNITIVE GOALS 1. GOAL MET Answer complex ADL problem solving and safety questions with 100% accuracy given occasional assist/cues. (bL Moderate assistance) 2. GOAL MET Improve money and time management tasks with 100% accuracy given occasional assist. (bL Moderate assistance) 3. GOAL MET Complete visual reasoning/organization tasks with 100% accuracy given occasional assist. (bL Moderate assistance) 4. GOAL MET Improve short term/prospective memory to 100% accuracy with use of compensatory strategies with occasional assist/cues. (bL verbal 25%, visual 66%) 5. GOAL MET Improve selective and alternating attention per auditory/visual cognitive tasks to 100% accuracy in order to demonstrate improved divide and alternate attention between multiple tasks within the home and social environment. (bL 57%) All goals to target the patient's overall ability to facilitate functional cognitive linguistic skills. 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 Patient Goals: Return to work PROMIS Scales 10/12/2024 09/28/2024 09/21/2024 Speech Communication Score 93.8 90 95 Cognitve Function T-Score 48 (within normal limits) Cognitive Function Percentile 42 Proxy-reported T-Score and Percentile Interpretation T-scores: mean of general population = 50. 5 points is clinically meaningfully difference Percentiles provide an indication of how the patient's score ranks in relation to the general population. Higher percentile rankings indicate better function/quality of life. 50th percentile is the average of the general population and indicates half of respondents had a worse score. OBJECTIVE MEASURES WITH LEVEL OF FUNCTION: Cognition Cognitive Status: Within Functional Limits For Current Session Attention Deficit: (WNL with auditory and visual distractions) Memory Deficits: Short Term Short Term Memory Comments: Demonstrates independence with use of compensatory memory strategies for verbal and visual stimulus. Executive Function Deficits: (WNL) Cognitive Clinical Tests and Screens: (The Brief Cognitive Assessment Tool (BCAT) = 46/50 WNL) LAY OUT MAKER administered Form B of BCAT to assess improvement in cognitive-linguistic skills as patient questioning readiness for discharge. Patient scored a 46, an improvement of 8 points from baseline score. Discharge ST this date to care of self and physicians. Patient instructed to continue to utilize compensatory strategies and environmental modifications PRN for memory, attention, and executive functioning. Sensory Deficits Sensory Deficits: Hearing, Vision Hearing Deficits: Hard Of Hearing, Hearing Aides Vision Deficits: Wears glasses Speech/Voice/Language Speech Production: Within Functional Limits Voice Assessment: No Expressive and Receptive Language: Within Functional Limits Fluency: No TREATMENT: Speech/Language Therapy (80350): Skilled Intervention: Educated and instructed patient on compensatory strategies for word-finding, complex reasoning, and thought organization Educated and instructed patient on memory recall strategies such as focused attention, verbal repetition, active repetition, visualization, association, graphic skills, and designated routine. Current Home Program: Use of environmental and high tech supports for memory and oranization Billing: Speech Treatment (63387) Total time / Length of visit: 48 minutes Session Start Time : 1356 Session Stop Time : 1444 Total Session Time (minutes): 48 Paz LEMUEL Corona-LAY OUT MAKER documented in this encounter [facility] 10-08-2024 Instructions Marni Catherine APRN.EARLY CHILDHOOD ASSISTANT - 10/08/2024 10:35 AM EDT - Continue taking Plavix as you resumed on the . - Keep doing the home balance exercises your occupational therapist provided. - Continue your speech therapy sessions; your physical therapy appointment is being scheduled. - Plan to see Dr. Francois in about four weeks for a repeat head CT scan and incision check. 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 documented in this encounter [facility] 10-08-2024 History of Presen t illness Narrative NEUROSURGERY POST-OP NOTE CHUNG Ortega MD Date of visit: October 08, 2024 Patient Name: Mr.Charles Shanta Chatterjee Date of : 1940 Current Age: [age] year old Sex: male MRN/E# [id number] Last Office Visit: 09/17/2024 SURGERY: SURGERY#1: Left craniotomy for evacuation of acute on chronic subdural hematoma on 08/10/[address] Francois. SURGERY #2: Diagnostic cerebral angiogram for left sided SDH on 08/31/[address] Rednon. FINDINGS: Left sided SDH. 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 PRE -SURGICAL SYMPTOMS: Drowsy, dizzy, gait imbalance PREVIOUS SURGERY: None SURGICAL RISK: Smoker: Every day Diabetic: No Anticoagulants / Antiplatelets: Plavix Occupation: Retired Patient is having their 2 month post operative visit with imaging (CT B) for evaluation. This is an 84-year-old male with a PMHx of CAD, A-fib (Plavix/ASA), HLD, CKD, aortic dissection with repair, HLD, hep C (eradicated) who was seen for consult at [facility] after transfer from an OSH on 08/09/[address] Francois. Patient reported a fall down steps 6 weeks prior, striking his head. Unsure of LOC. Over the next 4 to 6 weeks he developed lethargy, dizziness, shuffling gait and loss of balance. Outside ED workup showed a left frontal parietal mixed density subdural collection. Blood thinners were reversed with DDAVP, he was transferred to [facility] for higher acuity care. Imaging reviewed by Dr. Francois showing a largely subacute subdural hematoma on the left with significant local compression and midline shift. Recommendation was to undergo surgical decompression. This was agreed to and completed as noted above. He did well following surgery and was discharged home on Keppra 1 g twice daily with home care on 08/13/2024. Recommendation was to follow-up in 2 weeks for a routine postop visit, suture removal with imaging. He was seen in the office on 08/27/2024 and was doing well. He denied any neurological complaints or concerns. He reported that he was evaluated at Urgent Care one week prior to his visit for evaluation of a reddened area on his incision site. He was started on a short course of Keflex. He denied any fever, copious, purulent drainage, tenderness or swelling. The small reddened area had resolved with the use of Keflex. He continued to hold all blood thinning medications as instructed. Incision was open to air with ariadne without signs or symptoms of infection noted. [place] and one single suture were removed without an issue. Neurologically he was intact without focal deficit. CT showed improvement with interval resolution of pneumocephalus. There was a persistent 20 mm thickness of mixed density hemorrhage similar to the previous CT scan. Given patient was asymptomatic no neurosurgical intervention was recommended. He was advised to continue to hold all blood thinning medications and return in 2 weeks with a repeat CT for continued monitoring. Prior to his follow-up visit he presented to the ED with complaints of slurred speech. He reported that he had two falls following his office visit. CT was obtained and recommendation was to undergo an MMA embolization. 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 He was monitored and ultimately no additional neurosurgical intervention was recommended. He was advised to continue to hold blood thinning medications and follow-up in the office in 2 weeks with a repeat CT for continued monitoring. He was last seen in the office on 09/17/2024. He presented from [facility] where he was discharged to following his recent hospitalization. He was accompanied by his and daughter who provided additional history. During his hospital stay, he was treated with heparin injections and started on Keppra 500 mg twice daily, which he continued to take. He was subsequently transferred to a rehabilitation facility for strengthening exercises and was expected to be discharged to home following day. He denied any headaches, speech difficulties, or issues with moving his arms and legs since being discharged from the hospital. He denied any issues with his incision site. He was slightly deconditioned but neurologically intact without focal deficit. CT was reviewed and showed an interval decrease in the size of the chronic left-sided subdural hematoma. There was no evidence of acute intracranial abnormality. He was advised to continue Keppra 500 mg twice daily for seizure prophylaxis. He was told to resume Plavix on 10/02/2024 as per cerebrovascular recommendations. He was advised against driving until clearance and told to follow-up in 2 weeks with a repeat CT prompting his visit today. Since last visit he states he is overall doing well. He denies any headache, visual changes, speech deficits, seizure activity, motor or sensory deficits. He resumed his Plavix as instructed on 10/02/24 and is tolerating it well. He presents for image review, evaluation and plan of care. INCISION: Healed Current Outpatient Medications Medication Sig Dispense Refill lisinopril (ZESTRIL) 10 mg tablet Take 10 mg by mouth once daily. metoprolol tartrate, short acting, (LOPRESSOR) 25 mg tablet Take 25 mg by mouth two times a day. bisacodyl (DULCOLAX) 10 mg supp 1 suppository by RECTAL route once daily as needed. clopidogrel (PLAVIX) 75 mg tablet Take 75 mg by mouth once daily. acetaminophen (TYLENOL) 325 mg tablet 2 tablets by ORAL/FEEDING TUBE route every 4 hours as needed for pain. rosuvastatin (CRESTOR) 10 mg tablet Take 10 mg by mouth once daily. tamsulosin ER (FLOMAX) 0.4 mg cap Take 0.4 mg by mouth once daily. No current facility-administered medications for this visit. Review of Systems All other systems reviewed and are negative. Head: (-) headache Eyes: (-) diplopia, (-) vision loss Skin: (-) incisional discomfort Neurological: (+) balance difficulty, (-) speech difficulty, (-) unilateral weakness, (-) comprehension difficulty, (-) recent falls PAIN EVALUATION No data found in the last 1 encounters. PHYSICAL EXAM: WOUND ASSESSMENT: Incision healing, Well approximated incision, Non-reddened Mental State : Alert. Attention span and concentration normal for patient's age. Speech normal, fluent. No receptive or expressive speech deficit. Recent and remote memory normal. Orientation : Oriented to person, place and time. Higher Cortical Function : Intact speech and language. Comprehension normal. Fund of knowledge intact for pt level of education. Cranial Nerves : II: No visual field cut, no blurring. Makes and sustains eye contact. III, IV, : No double vision or lid drooping. Pupils equal and reactive to light. Extraocular muscles intact. No nystagmus. V: Normal sensation on the face, normal jaw movements. VII: No paresis on either side. VIII: No gross hearing deficit IX: Good and equal shoulder shrugs. XII: Tongue midline, no fasciculations. Sensory: SILT. Normal Sensation in bilateral upper and bilateral lower extremities to touch and noxious stimuli. Motor: Normal muscle tone and bulk. No spasticity, tremor or uncontrollable movements. Strength: Upper Extremities : R L Deltoid 5/5 5/5 Biceps 5/5 5/5 Triceps 5/5 5/5 Wrist Ext 5/5 5/5 Wrist Flx 5/5 5/5 Hand Int 5/5 5/5 Lower Extremities : Hip Flexors 5/5 5/5 Hip Extensors 5/5 5/5 Hip Abductors 5/5 5/5 Straight leg Neg Neg Ankle dorsiflex 5/5 5/5 Ankle Plantar 5/5 5/5 Cerebellar Function : Normal finger to nose. Normal rapid alternating movements. No ataxia. Gait and Station: Normal gait. No assistive device usage. IMAGING: CT Brain WO IVCON performed today 10/08/24 demonstrates: In process. Interval decrease in the size of the now mixed density left sided subdural hematoma. Await final radiology report. ASSESSMENT/PLAN: 1. Subdural hematoma (HCC) (S06.5XAA) - Recent CT scan shows improvement compared to the September 17 scan; hematoma is smaller and predominantly chronic. - Awaiting radiology report to confirm findings; potential presence of mixed density areas noted, possibly post op changes and [place]. - Resumed Plavix on the . - No headaches, vision changes, or focal neurological deficits observed; incision site is healing well without complications. - Advised against activities that may cause head trauma, such as using a riding mower, until further confirmation from the radiology report. - Scheduled follow-up with Dr. Francois in 4 weeks; will coordinate another CT scan prior to the appointment. - Will contact patient with radiology report findings to determine safety of resuming certain activities. - Should she develop any new or concerning neurological changes including headache, confusion, weakness, presented to the emergency department for further evaluation. Marni Catherine APRN-[facility] Neurosurgery Nurse Practitioner [facility] FOLLOW UP: Return in about 4 weeks (around 11/05/2024) for review of imaging and plan of care. This note was partially generated using Finomial voice recognition system, and there may be some incorrect words, spellings, and punctuation that were not noted in checking the note before saving. documented in this encounter [facility] 10-08-2024 Note [facility] 10-08-2024 History of Presen t illness Narrative Radiology Service Progress Note PATIENT NAME: Carlito Chatterjee DATE OF SERVICE: October 08, 2024 TIME: 10:52 AM PATIENT IDENTITY VERIFICATION COMPLETED USING TWO (2) IDENTIFIERS: Name and Date of confirmed by patient verbally. FALL SCREENING: Has the patient had 2 falls in the last year or 1 fall with injury or currently using an Ambulatory Assistive Device (Walker, Cane, Wheelchair, Crutches, etc.)? No PATIENT GENDER DATA: Assigned male at PATIENT RELEVANT IMPLANT DATA REVIEWED: Not Applicable PATIENT PRESENTS WITH AN IMPLANTABLE OR ATTACHED LEGAL NURSE CONSULTANT: na RADIOLOGY DEPARTMENT: CT; Exam(s) Completed: Brain PERIPHERAL IV DATA: Not applicable SIGNED BY: RT Manda(R) October 08, 2024 10:52 AM documented in this encounter [facility] 10-08-2024 Note [facility] 10-05-2024 Note [facility] 10-05-2024 History of Presen t illness Narrative Summary: Speech Therapy Episode Visit Count: Visit count could not be calculated. Make sure you are using a visit which is associated with an episode. Therapist That Will Accept/Oversee The Plan Of Care: Paz Corona Start of Care Date: 09/21/24 Onset Date: 08/10/24 Plan of Care Certification Date: 09/21/24 Next Certification Due Date: 12/17/24 Patient Identified by Name and Date of : Yes [facility] REHABIL[facility] AND SPORTS THERAPY SPEECH THERAPY TREATMENT NOTE IMPRESSION: Functional communication without limitations in: Speech, Voice, Fluency Communication deficits identified: Cognitive-Linguistic deficits LAY OUT MAKER Recommendations: Outpatient Speech Therapy Results and Recommendations Discussed With: Patient PLAN: Planned Treatment Interventions: Cognitive-Linguistic Training (56020, [id number], [id number]), Patient / Caregiver Education/ Training Current Frequency: 1x/week Duration: 12 weeks PLAN FOR NEXT VISIT: Establish and train patient in effective STM storage and retrieval strategies SUBJECTIVE: Past Relevant Medical Conditions: (Left craniotomy evacuation of acute on chronic subdural hematoma on 08/10/2024; falls, aphasia and dysarthria resolved) Subjective: Patient reported he is ready to get back to work and is getting around much easier. Brain CT scheduled for 10/08/24. Patient Goals: Return to work OBJECTIVE: MEASURES WITH LEVEL OF FUNCTION: Professional training and skilled instructions were provided as follows: Cognitive-linguistic skills Patient / Caregiver education: Improved independence with use of memory strategies. Notable improvements in selective attention. Cognition Cognitive Status: Within Functional Limits For Current Session Except Cognitive Deficits: Memory Deficits, Executive Function Deficit Attention Deficit: (WNL with auditory and visual distractions) Memory Deficits: Short Term Short Term Memory Comments: STM for 5 verbally presented unrelated words 80% with independent use of internal repetition, auditory rehearsal, visualization, and associations. Increased to 100% with minimal semantic cues. Executive Function Deficits: Reasoning/Inferences, Organization Reasoning/Inferences Comments: Completion of visual organization and deductive reasoning worksheet medication management organization and error correcting to challenge attention, problem solving, and information processing with minimal assistance. Speech/Voice/Language Speech Production: Within Functional Limits Voice Assessment: No Expressive and Receptive Language: Within Functional Limits Fluency: No TREATMENT: Speech/Language Therapy (54394): Skilled Intervention: Educated and instructed patient on compensatory strategies for complex reasoning and thought organization Educated and instructed patient on memory recall strategies such as focused attention, verbal repetition, active repetition, visualization, association, and graphic skills. Current Home Program: Use of environmental and high tech supports for memory and oranization Billing: Speech Treatment (13569) Total time / Length of visit: 50 minutes Session Start Time : 1400 Session Stop Time : 1450 BOB [place] documented in this encounter [facility] 10-03-2024 Note Addended by: QIAN KNAPP on: 10/03/2024 12:43 PM Modules accepted: Orders [facility] 10-03-2024 Miscellaneous Notes Addended by: QIAN MCCAIN on: 10/03/2024 12:43 PM Modules accepted: Orders documented in this encounter [facility] 10-03-2024 Note [facility] 10-03-2024 History of Presen t illness Narrative Summary: OT re-eval Images from the original note were not included. Episode Visit Count: 2 Therapist That Will Accept/Oversee The Plan Of Care: Qian Mccain Start of Care Date: 08/19/24 Onset Date: 08/09/24 Plan of Care Certification Date: 10/02/24 Next Certification Due Date: 12/01/24 Patient Identified by Name and Date of : Yes [facility] REHABILITATION AND SPORTS THERAPY OCCUPATIONAL THERAPY EVALUATION PLAN OF CARE: Assessment: Carlito Chatterjee presents with diagnosis of SDH that interferes with walking, standing, heavy exertion, lifting, physical activities, carrying, pushing . The patient presents with impairments in balance and overall function. PROMIS (Patient-Reported Outcomes Measurement Information System) scores were reviewed and identified as within normal limits. Prognosis for therapy is Good due to: current objective clinical presentation . The patient will benefit from skilled therapy services to meet the goals established for this plan of care as noted below. Goals for Episode of Care: established 08/19/24 Pt to report cont. Exercise and healthy lifestyle majority days of the week to assist with recovery. Patient Goals: get stronger Time Frame for Goals and Treatment : 12/01/24 Planned Interventions, Frequency, and Duration: Current Frequency: 1x/month Duration: 8 weeks Total Number of Visits Planned: 3 Planned Treatment Interventions: Self-alf management (85143), Therapeutic exercise (03127), Therapeutic activities (41847), Neuromuscular re-education (91551) PLAN FOR NEXT VISIT:adjust HEP as needed Patient demonstrates good understanding of plan of care and treatment. The above goals and plan of care were discussed and agreed upon by patient/family. SUBJECTIVE: OT re-evaluation; pt went to ER because he wasn't acting like himself (had fall 6 weeks prior with possible LOC); found to have SDH with evacuation 08/09; pt reports he has pretty much returned to his normal self with exception of feeling a little of with balance and walking - pt then had an episode of increased lethargy, dizziness and weakness- found to have L sided SDH 08/31; Functional Limitations: walking, standing, heavy exertion, lifting, physical activities, carrying, pushing Prior Level of Function: Independent without limitations Patient Goals: get stronger Intake Information: Prescription present Previous Treatment: Physical Therapy , Occupational Therapy, Speech Therapy Falls Interview: Fall without injury in the last year Relevant History Right or Left Handed: Right Employment: Retired ([employer]) Hobbies / Interests: cycling Home Environment Patient Lives With: Spouse Assistance Available: 24-Hour Equipment Owned: Cane, Walker- Wheeled, Crutch(es), Shower Chair, Grab Bars- Shower, Grab Bars- Toilet, Elevated Toilet Seat Pain: Pain Pain Level: 0 Pain Location: Shoulder - Left Post Treatment Pain Post Treatment Pain Level: No Change PROMIS Scales 09/30/2024 09/28/2024 09/21/2024 Higher is Better Self-Eff Symptom - T Score 44 (Average) Self-Eff Symptom - Percentile 27 Mobility - T Score 39 (moderate dysfunction) Mobility - Percentile 14 Cognitve Function - T Score 48 (within normal limits) Cognitive Function - Percentile 42 Communication - Score 90 95 Proxy-reported T-scores: mean of general population = 50. 5 points is clinically meaningfully difference Percentiles provide an indication of how the patient's score ranks in relation to the general population. Higher percentile rankings indicate better function/quality of life. 50th percentile is the average of the general population and indicates half of respondents had a worse score. OBJECTIVE MEASURES WITH LEVEL OF FUNCTION: Safety Judgment: Appropriate awareness of safety precautions Vision Vision Deficits: Wears corrective lenses Posture / Alignment Posture: Rounded shoulders, Elevated shoulder -left, Decreased lumbar lordosis, Forward head Sensation - Upper Extremity UE Light Touch Sensation: Grossly Intact Hand Strength R Bath Design Sales Consultant Position 1 (lbs): 20 lbs L Bath Design Sales Consultant Position 1 (lbs): 15 lbs R Lateral Pinch (lbs): 9 lbs R Tripod/ 3 Jaw Lavon (lbs): 9 lbs L Lateral Pinch (lbs): 9 lbs L Tripod/ 3 Jaw Lavon (lbs): 9 lbs Communication Comprehension: Complex auditory and visual communication Thought Process: Logical, coherent thought form Expression: Expresses complex ideas clearly and fluently Conversation: Appropriate thought content Sensory Sensory Deficits: (reports normal sensation) UE AROM R UE AROM: WFL L UE AROM: WFL UE and Cervical Strength Strength Tested: Shoulder All, Hand R UE Strength: grossly 4/5 L UE Strength: grossly 4/5 Current Activities Of Daily Living Feeding: Independent Grooming: Independent Bathing Upper Body: Independent Bathing Lower Body: Independent Dressing Upper Body: Independent Dressing Lower Body : Independent Toileting: Independent Instrumental Activities of Daily Living Difficulty noted with: Meal/Beverage Prep, Cooking, Cleaning, Laundry, Shopping, Driving Additional Instrumental Activities of Daily Living: pt reports spouse does IADLS; has not been allowed to drive since hospitalization Current Functional Mobility Functional Mobility: Functional Mobility Functional Mobility: Supervision Functional Mobility Device: Cane Static Sitting Balance: Patient able to maintain steady balance without handhold support Dynamic Sitting Balance: Patient accepts moderate challenge, able to maintain balance while picking up object off floor Static Standing Balance: Patient able to maintain balance without handhold support, limited postural sway Functional Performance Test Results 9 Hole Peg Test Right (seconds): 30.4 Education: Education Learning Preferences: Demonstration, Explanation, Performance, Printed Materials Barriers: None Learning/educational needs: Home exercise program Education Provided: Yes, see treatment interventions for education provided Education Provided To: Patient Education Mode/Type: Demonstration, Explanation/Discussion, Literature/Printed Materials, Performance Response to Education/Teach Back: States/Identifies, Return Demonstration, Requires Review/Additional Education TREATMENT: OT Treatment Interventions : Therapeutic Exercise, Self-Snf Management Evaluation Re-evaluation: Performed due to the following change of patient status: SDH Therapeutic Exercise: 1: Review of PWR exercises and UE band exercises for improved strength and maintainence of strength during recovery; Skilled Intervention: Patient was educated in proper exercise technique and purpose for exercises. Provided written instruction for home exercise program to facilitate proper performance and compliance. Correct performance of therapeutic exercises was facilitated with verbal, visual, and tactile cuing. Self-Snf Management: 1: Discussed role of OT, stroke recovery and POC; encouragement for active lifestyle and safety Skilled Intervention: Skilled judgment in the selection of proper modification for activity of daily living/home management based on clinical presentation, deficits, and needs. Reviewed patient specific diagnosis in relation to activities of daily living/home management. Billing * Re-Evaluation : 1 Unit Therapeutic Exercise Treatment Minutes: 10 Self-Care/Home Management Treatment Minutes: 10 Skilled Treatment Time Minutes (timed and untimed codes): 37 Total Session Time (minutes): 37 Session Start Time : 1500 Session Stop Time : 1537 YOAN Mims Program_ID:[id number] Access Code: [email or web address] URL: [email or web address] Date: 10-02-2024 Prepared By: Qian Mccain Program Notes Patient Education - cc PD PWR UP Sitting Routine documented in this encounter [facility] 09-30-2024 Note [facility] 09-30-2024 History of Presen t illness Narrative Images from the original note were not included. Episode Visit Count: 1 Therapist That Will Accept/Oversee The Plan Of Care: [place] Start of Care Date: 09/30/24 Onset Date: 08/10/24 Plan of Care Certification Date: 09/30/24 Next Certification Due Date: 11/29/24 Patient Identified by Name and Date of : Yes REHABILITATION AND SPORTS THERAPY PHYSICAL THERAPY EVALUATION PLAN OF CARE: Assessment: Carlito Chatterjee presents with diagnosis of s/p SDH , post bleed and surgical repair , with continued overall strength global deficits with mild lateral sway, toney when inattentive with higher level tasks of gait and balance that interferes with walking in the house, walking in the community, stair negotiation, heavy exertion, lifting, physical activities, squatting, driving (unable to drive, would like ref to driving program ,) . The patient presents with impairments in balance, flexibility, gait, independence in exercise, overall function, patient reported outcome measures, and strength. PROMIS (Patient-Reported Outcomes Measurement Information System) scores were reviewed and identified as within normal limits. Prognosis for therapy is Good due to: current objective clinical presentation, good overall health status, positive past response to therapy, good support system/ coping skills, within-session changes . The patient will benefit from skilled therapy services to meet the goals established for this plan of care as noted below. Goals for Episode of Care: established 09/30/24 Patient will increase strength of Bilat lower extremity's , and global strength to allow patient to improve gait mechanics/gait pattern, improve ability to negotiate stairs, and improve balance. [place] in home exercise program. Patient will demonstrate increase in bilateral LE strength and core/ spine as needed bilateral to 5/5 during manual muscle testing in order to improve function for basic self-care tasks, home management tasks, and prior functional tasks. Patient will increase flexibility of Bilat LE's to WNL to improve ability to maintain proper posture, improve mechanics, and decrease pain. Patient will improve / Tolerate a 6 minute walk test to to 5<[phone] feet. Patient will Improve/tolerate Timed Up and Go to <14 seconds to demonstrate decreased risk of falling. Patient will improve 10MWT to 1.2m/s with or w/o assistive device to demonstrate improvement in functional community ambulation. Improve postural awareness. Normal gait. Reciprocal stair negotiation. Patient Goals: walk better, get stronger Time Frame for Goals and Treatment : 11/29/24 Planned Interventions, Frequency, and Duration: Current Frequency: 1x/week Duration: Two months Total Number of Visits Planned: 9 Planned Treatment Interventions: Therapeutic exercise (58228), Neuromuscular re-education (60475), Therapeutic activities (94085), Gait Training (43068) PLAN FOR NEXT VISIT: LE stretching ex add to HEP, static and dynamic balance ex : - try mini hurddles, Patient demonstrates good understanding of plan of care and treatment. The above goals and plan of care were discussed and agreed upon by patient/family. SUBJECTIVE: Pt reports continued weakness, abn gait, decreased strength post SDH ,& post bleed . Pt rep had surgical repair and hosp., Pt rep he had a fall 6 weeks prior to episode of declining , impaired movement , and writting. Patient Goals: walk better, get stronger Functional Limitations: walking in the house, walking in the community, stair negotiation, heavy exertion, lifting, physical activities, squatting, driving (unable to drive, would like ref to driving program ,) Prior Level of Function: Independent without limitations Relevant History Past Relevant Medical Conditions: (h/o Bilat TKA, L sh injury fx ( pt thinks his clavicle - remote ) , arm/ sh is raised) Past Relevant Surgical Conditions: Total Knee Replacement-Right, Total Knee Replacement-Left, Comments Relevant Surgical Conditions Comments: craniotomy for SDH Right or Left Handed: Right Employment: Retired Hobbies / Interests: cycling Home Environment Patient Lives With: Spouse Assistance Available: 24-Hour Home Type: [place], Multi-Level (set up on first floor, can/ & has been sleeping upstairs due to drapes down currently.) Entry To Home: Stairs, With Rail Number Of Stairs Into Home: 4 (or 1 setp other door) Number Of Stairs To Bed/Bath: 1 Stairs to Bed/Bath with: No Rail Tub/Shower Type: Tub Laundry: in basement, spouse completes Equipment Owned: Cane, Grab Bars- Shower, Shower Chair, Walker- Wheeled Intake Information: Prescription present Previous Treatment: Physical Therapy , Occupational Therapy, Speech Therapy (in pt rehab) Falls Interview: No positive findings with falls interview (no falls since dc home) Pain: Pain Pain Level: 0 Post Treatment Pain Post Treatment Pain Level: No Change PROMIS Scales 09/30/2024 09/28/2024 09/21/2024 Higher is Better Self-Eff Symptom - T Score 44 (Average) Self-Eff Symptom - Percentile 27 Mobility - T Score 39 (moderate dysfunction) Mobility - Percentile 14 Cognitve Function - T Score 48 (within normal limits) Cognitive Function - Percentile 42 Communication - Score 90 95 Proxy-reported T-scores: mean of general population = 50. 5 points is clinically meaningfully difference Percentiles provide an indication of how the patient's score ranks in relation to the general population. Higher percentile rankings indicate better function/quality of life. 50th percentile is the average of the general population and indicates half of respondents had a worse score. OBJECTIVE MEASURES WITH LEVEL OF FUNCTION: Cognition Cognition: Follows Commands, Safety Judgement, Communication Deficits Follows Commands: 2-step Commands Safety Judgment: Appropriate awareness of safety precautions Posture / Alignment Posture: Rounded shoulders, Elevated shoulder -left, Decreased lumbar lordosis, Forward head Sensory Sensory Deficits: (reports normal sensation) LE Flexibility Flexibility: Hamstring Flexibility, Hip Flexor Flexibility, Gastrocnemius Flexibility R Hamstring Flexibility: mod tight L Hamstring Flexibility: mod tight R Hip Flexor Flexibility: min tight L Hip Flexor Flexibility: min tight R Gastrocnemius Flexibility: mod tight L Gastrocnemius Flexibility: mod tight UE and Cervical Strength R UE Strength: grossly 5/5 L UE Strength: grossly 5/5 LE Strength R Hip Extension: 4/5 R Hip Flexion (L2): 4+/5 R Hip ABduction: 4-/5 R Knee Extension (L3): 5/5 R Knee Flexion: 4+/5 R Ankle Dorsiflexion (L4): 4+/5 R Ankle Plantar Flexion: 4/5 L Hip Extension: 4+/5 L Hip Flexion (L2): 4+/5 L Hip ABduction: 4/5 L Knee Extension (L3): 4+/5 L Knee Flexion: 4+/5 L Ankle Dorsiflexion (L4): 4/5 L Ankle Plantar Flexion: 4/5 Mobility Supine To Sit: Independent Sit to Supine: Independent Sit To Stand: Independent Stand To Sit: Independent Balance Static Standing Balance: Narrow Base of Support, Semi/Partial Tandem Stance, Tandem Stance, Single Leg Stance Narrow Base of Support: 30 Semi/Partial Tandem Stance: 30sec (l/r in front) Tandem Stance: L fore : w/ mild Lateral sway 15 sec , 18 sec; R in fore : 30 sec Single Leg Stance: L/or R B with a lateral sway and 2 sec ea Dynamic Standing Balance: Toe Walk, Heel Walk, Tandem Walking (heel to toe) Toe Walk: not tolerated , Heel Walk: x 1-2 ' with lateral sway Tandem Walking: not tolerated w/o UE support , with Lat sway Static Sitting Balance: good Dynamic Sitting Balance : G Functional Performance Test Results 10 Meter Walk Test Trial 1 (seconds): 6.18 10 Meter Walk Test Average (m/sec): 0.97 Timed Up and Go (sec): (pt too fatigued) Vitals BP: 113/55 Pulse: 62 SpO2: 98 % Education: Education Learning Preferences: Demonstration, Explanation, Performance, Printed Materials Barriers: Acuity of Illness Learning/educational needs: Home exercise program, Health promotion, Plan of Care, Changes in Plan of Care Education Provided: Yes, see treatment interventions for education provided Education Provided To: Patient, Caregiver Education Mode/Type: Demonstration, Explanation/Discussion, Performance Response to Education/Teach Back: Requires Review/Additional Education TREATMENT: PT Treatment Interventions: Therapeutic Activity, Neuromuscular Re-Education Evaluation Evaluation Therapeutic Activity: 1: PT EVAL and POC education, home safety educ. fall prevention, discussed pt mild L side neglect , sway with ambulation , and rec. use HR on stairs, Skilled Intervention: Educated on proper/safe technique for activities performed today. Activity progression based on professional judgment. Neuromuscular Re-Education: 1: standing static and dynamic balance ex 2: Gait tx with verbal and visual cues for improving path deviations, promoting L side scanning , Skilled Intervention: Education in proprioceptive/kinesthetic awareness during sitting, standing, and dynamic activities. Education and demonstration for posture and positioning for tone management. Billing * Evaluation Moderate Complexity: 1 Unit Therapeutic Activity Treatment Minutes: 12 Neuromuscular Re-Education Treatment Minutes: 12 Skilled Treatment Time Minutes (timed and untimed codes): 51 Total Session Time (minutes): 51 Session Start Time : 1423 Session Stop Time : 1514 [place] PT documented in this encounter [facility] 09-28-2024 Note Brandt Perez [facility] 09-28-2024 History of Presen t illness Narrative Summary: SPeech Therapy Episode Visit Count: Visit count could not be calculated. Make sure you are using a visit which is associated with an episode. Therapist That Will Accept/Oversee The Plan Of Care: Paz Cj Start of Care Date: 09/21/24 Onset Date: 08/10/24 Plan of Care Certification Date: 09/21/24 Next Certification Due Date: 12/17/24 Patient Identified by Name and Date of : Yes [facility] SPEECH THERAPY TREATMENT NOTE IMPRESSION: Functional communication without limitations in: Speech, Voice, Fluency Communication deficits identified: Cognitive-Linguistic deficits LAY OUT MAKER Recommendations: Outpatient Speech Therapy Results and Recommendations Discussed With: Patient PLAN: Planned Treatment Interventions: Cognitive-Linguistic Training (79272, 56015, 80348), Patient / Caregiver Education/ Training Current Frequency: 1x/week Duration: 12 weeks PLAN FOR NEXT VISIT: Establish and train patient in effective STM storage and retrieval strategies SUBJECTIVE: Past Relevant Medical Conditions: (Left craniotomy 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 Patient Goals: Return to work OBJECTIVE: MEASURES WITH LEVEL OF FUNCTION: Professional training and skilled instructions were provided as follows: Cognitive-linguistic skills Patient / Caregiver education: Memory types, memory supports (external), internal memory strategies Home Exercise Plan: Use of external memory and organizational supports Cognition Cognitive Status: Within Functional Limits For Current Session Except Cognitive Deficits: Attention Deficit, Memory Deficits, Executive Function Deficit Attention Deficit: Selective, Alternating Memory Deficits: Short Term Short Term Memory Comments: LAY OUT MAKER provided verbal and written instruction to patient per types of memory, strategies to promote memory storage, and strategies to promote memory retreival. Patient able to demonstrate use of internal repetition, auditory rehearsal, and reference to written supports with minimal verbal cues. Executive Function Deficits: Reasoning/Inferences, Organization Reasoning/Inferences Comments: Completion of visual organization and deductive reasoning worksheet targeting map interpretation and construction to challenge attention, problem solving, and information processing with minimal-moderate assistance. Speech/Voice/Language Speech Production: Within Functional Limits Voice Assessment: No Expressive and Receptive Language: Within Functional Limits Fluency: No TREATMENT: Speech/Language Therapy (67961): Skilled Intervention: Educated and instructed patient on compensatory strategies for word-finding, complex reasoning, categorization, and thought organization Educated and instructed patient on memory recall strategies such as focused attention, verbal repetition, active repetition, visualization, association, and graphic skills. Assigned Home Exercise Program: Current Home Program: Use of environmental and high tech supports for memory and oranization Current Home Program: Use of environmental and high tech supports for memory and oranization Billing: Speech Treatment (66705) Total time / Length of visit: 47 minutes Session Start Time : 1400 Session Stop Time : 1447 Paz Corona CCC-LAY OUT MAKER documented in this encounter [facility] 09-21-2024 Note [facility] 09-21-2024 History of Presen t illness Narrative Summary: SPEECH THERAPY EVALUATION Episode Visit Count: Visit count could not be calculated. Make sure you are using a visit which is associated with an episode. Therapist That Will Accept/Oversee The Plan Of Care: Paz Cj Start of Care Date: 09/21/24 Onset Date: 08/10/24 Plan of Care Certification Date: 09/21/24 Next Certification Due Date: 12/17/24 Patient Identified by Name and Date of : Yes [facility] SPORTS THERAPY COGNITIVE LINGUISTIC EVALUATION PLAN OF CARE: Impression: Functional communication without limitations in: Speech, Voice, Fluency Communication deficits identified: Cognitive-Linguistic deficits RECOMMENDATION: LAY OUT MAKER Recommendations: Outpatient Speech Therapy Results and Recommendations Discussed With: Patient, Family Prognosis: Excellent Excellent: current objective clinical presentation, acuteness of injury, positive past response to therapy, within-session changes at evaluation, good support system/ coping skills Goals for Episode of Care: created on 09/21/2024 through 12/17/24 COGNITIVE GOALS 1. Answer complex ADL problem solving and safety questions with 100% accuracy given occasional assist/cues. (bL Moderate assistance) 2. Improve money and time management tasks with 100% accuracy given occasional assist. (bL Moderate assistance) 3. Complete visual reasoning/organization tasks with 100% accuracy given occasional assist. (bL Moderate assistance) 4. Improve short term/prospective memory to 100% accuracy with use of compensatory strategies with occasional assist/cues. (bL verbal 25%, visual 66%) 5. Improve selective and alternating attention per auditory/visual cognitive tasks to 100% accuracy in order to demonstrate improved divide and alternate attention between multiple tasks within the home and social environment. (bL 57%) All goals to target the patient's overall ability to facilitate functional cognitive linguistic skills. Planned Interventions, Frequency, and Duration: Planned Treatment Interventions: Cognitive-Linguistic Training (57756, 11204, 02944), Patient / Caregiver Education/ Training Current Frequency: 1x/week Duration: 12 weeks PLAN FOR NEXT VISIT: Establish and train patient in effective STM storage and retrieval strategies Patient demonstrates good understanding of plan of care and treatment. The above goals and plan of care were discussed and agreed upon by patient/family. SUBJECTIVE: Carlito Chatterjee is a 84 year old male seen today for a diagnostic. Past Relevant Medical Conditions: (Left craniotomy evacuation of acute on chronic subdural hematoma on 08/10/2024; falls, aphasia and dysarthria resolved) Patient referred to outpatient speech therapy for evaluation upon return home from inpatient rehab at [facility], s/p L SDH evaluation with craniotomy 07/2024. 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 PROMIS Scales 09/21/2024 Speech Communication Score 95 Cognitve Function T-Score 48 (within normal limits) Cognitive Function Percentile 42 T-scores: mean of general population = 50. 5 points is clinically meaningfully difference Percentiles provide an indication of how the patient's score ranks in relation to the general population. Higher percentile rankings indicate better function/quality of life. 50th percentile is the average of the general population and indicates half of respondents had a worse score. OBJECTIVE MEASURES WITH LEVEL OF FUNCTION: Hearing Deficits: Hard Of Hearing Vision Deficits: Wears glasses Portions of the following standardized testing were utilized in the evaluation of the patient: The Brief Cognitive Assessment Tool Mild Cognitive Impairment Orientation 6/6 Immediate Verbal Recall 4/4 Visual Recognition/Naming 3/3 Attention / Abstraction 3/3 Language 3/3 Executive Function / Visuospatial 4/4 Delayed Verbal Recall 1/4 Immediate Story Recall 1/2 Delayed Visual Memory 2/3 Delayed Story Recall 1/2 Story Recognition 4/5 Speech/Voice/Language Speech Production: Within Functional Limits Voice Assessment: No Expressive and Receptive Language: Within Functional Limits Fluency: No COGNITIVE-LINGUISTIC SKILLS Cognition Cognitive Status: Within Functional Limits For Current Session Except Cognitive Deficits: Attention Deficit, Memory Deficits, Executive Function Deficit Attention Deficit: Selective, Alternating Memory Deficits: Short Term Short Term Memory Comments: 25% verbal, 66% visual Executive Function Deficits: Organization, Reasoning/Inferences Reasoning/Inferences Comments: Moderate assistance Organization Comments: Moderate assistance Cognitive Clinical Tests and Screens: (The Brief Cognitive Assessment Tool (BCAT) = MCI) Education: Education Learning Preferences: Demonstration, Explanation, Performance, Printed Materials Barriers: Cognitive Limitations, Hearing Deficit Learning/Educational Needs: Compensatory Strategies, Discharge Plan, Family Education/Training, Plan of Care, Precautions, Rehabilitation Techniques and Procedures, Safety, Cognitive Skills, Language Skills, Home Exercise Program Education Provided: Yes, see treatment interventions for education provided Education Provided To: Patient, Family Education Mode/Type: Explanation/Discussion Response to Education/Teach Back: Requires Review/Additional Education TREATMENT: Evaluation: Eval Sound Production with Language Expression and Neon Glass Blower ([id number]) Current Home Program: TBD Billing: Eval Sound Production with Language Expression and Neon Glass Blower (32520) Total time / Length of visit: 41 minutes Session Start Time : 1303 Session Stop Time : 1344 BOB [place] documented in this encounter [facility] 09-17-2024 Instructions Marni Catherine APRN.CNP - 09/17/2024 10:02 AM EDT - Continue taking Keppra 500 mg by mouth twice daily to prevent seizures. Contact the clinic if you need a refill. We plan to taper it off once the remaining fluid on your head CT has resolved. - Resume Plavix (blood thinner) on October 02 as noted in your chart. Do not start it before that date. - We performed a head CT today showing that your subdural bleed is healing and not actively bleeding. - A follow-up visit is planned for October 08 in the late morning. You will have another CT scan then to check progress. Our office will confirm the exact time and arrange transport for you. - You are not cleared to drive yet. After I review your follow-up CT, your primary care doctor will decide when it s safe for you to resume driving. documented in this encounter [facility] 09-17-2024 History of Presen t illness Narrative NEUROSURGERY POST-OP NOTE CHUNG Ortega MD Date of visit: September 17, 2024 Patient Name: Mr.Charles Shanta Chatterjee Date of : 1940 Current Age: [age] year old Sex: male MRN/E# [id number] Last Office Visit: August 27, 2024 SURGERY#1: Left craniotomy for evacuation of acute on chronic subdural hematoma on 08/10/[address] Francois. SURGERY #2: Diagnostic cerebral angiogram for left sided SDH on 08/31/[address] Rendon. FINDINGS: Left sided SDH. 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 PRE -SURGICAL SYMPTOMS: Drowsy, dizzy, gait imbalance SURGICAL RISK: Smoker: Every day Diabetic: No Anticoagulants / Antiplatelets: On hold /Plavix Occupation: Retired Patient is having their 5 week post operative visit with imaging (CT B) for evaluation. This is an 84-year-old male with a PMHx of CAD, A-fib (Plavix/ASA), HLD, CKD, aortic dissection with repair, HLD, hep C (eradicated) who was seen for consult at [facility] after transfer from an OSH on 08/09/[address] Francois. Patient reported that he had a fall down the steps approximately 6 weeks prior causing him to strike his head against the wall. He could not recall if he had an LOC. He was initially seen at an outside urgent care and had x-rays of his left shoulder and left foot. He denied any neurological issues at the time. Over the next 4 to 6 weeks patient developed lethargy, dizziness, shuffling gait and loss of balance which prompted his visit to an outside ED. Workup was completed and showed a left frontal parietal mixed density subdural collection. Blood thinners were reversed with DDAVP and he was transferred to [facility] for higher acuity care. Once imaging reviewed by Dr. Francois, this showed a largely subacute subdural hematoma on the left with significant local compression and midline shift. Natural history was reviewed with the family and the patient with recommendation to undergo surgical decompression. This was agreed to and completed as noted above. He was started on Keppra 1 g twice daily for seizure prophylaxis. He did well following surgery and was discharged home with home care on 08/13/2024. Recommendation was to follow-up in 2 weeks for a routine postop visit, suture removal with imaging. He was last seen in the office on 08/27/2024 and reported that he was doing well. He denied any specific complaints or concerns. Denied headache, visual changes, speech deficits, seizure activity, motor or sensory deficits. He was seen at an urgent care 1 week prior to his visit for evaluation of a reddened area on his incision site. He was started on a short course of Keflex. He denied any fever, copious, purulent drainage, tenderness or swelling. He reported the small reddened area had resolved with the use of Keflex. He continue to hold all blood thinning medications as instructed. Incision was open to air with ariadne without signs or symptoms of infection noted. Ariadne in 1 single suture were removed without an issue. Neurologically he was intact on exam without focal deficit. CT was reviewed and showed improvement with interval resolution of pneumocephalus. There was a persistent 20 mm thickness of mixed density hemorrhage similar to the previous CT scan. Given patient was asymptomatic no neurosurgical intervention was recommended. He was advised to continue to hold all blood thinning medications and return in 2 weeks with a repeat CT for continued monitoring. Prior to his follow-up visit he presented to the ED with complaints of slurred speech. He reported that he had to falls following his office visit. CT was obtained and recommendation was to undergo an MMA embolization. 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 He was monitored and ultimately no additional neurosurgical intervention was indicated. Recommendation was to continue to hold blood thinning medications and follow-up in the office in 2 weeks with a repeat CT for continued monitoring prompting his visit today. [facility] recent [facility]. He is accompanied by his and daughter, who provide additional history. During his hospital stay, he was treated with heparin injections and started on Keppra 500 mg twice daily, which he continues to take. He was subsequently transferred to a rehabilitation facility for strengthening exercises and is expected to be discharged home tomorrow. He does not report any headaches, speech difficulties, or issues with moving his arms and legs since being discharged from the hospital. He also does not endorse any problems with his incision site. He presents for image review, evaluation and plan of care. INCISION: Healed Current Outpatient Medications Medication Sig Dispense Refill famotidine (PEPCID) 20 mg tablet Take 20 mg by mouth two times a day. lisinopril (ZESTRIL) 10 mg tablet Take 10 mg by mouth once daily. metoprolol tartrate, short acting, (LOPRESSOR) 25 mg tablet Take 25 mg by mouth. heparin 5,000 unit/mL injection Inject 1 mL subcutaneously every 8 hours. bisacodyl (DULCOLAX) 10 mg supp 1 suppository by RECTAL route once daily as needed. senna-docusate (SENNA-S) 8.6-50 mg per tablet 2 tablets by ORAL/FEEDING TUBE route two times a day. levETIRAcetam (KEPPRA) 500 mg tablet 1 tablet by ORAL/FEEDING TUBE route two times a day. [Paused] clopidogrel (PLAVIX) 75 mg tablet Take 75 mg by mouth once daily. acetaminophen (TYLENOL) 325 mg tablet 2 tablets by ORAL/FEEDING TUBE route every 4 hours as needed for pain. rosuvastatin (CRESTOR) 10 mg tablet Take 10 mg by mouth once daily. tamsulosin ER (FLOMAX) 0.4 mg cap Take 0.4 mg by mouth once daily. No current facility-administered medications for this visit. Review of Systems All other systems reviewed and are negative. Head: (-) headache Musculoskeletal: (+) musculoskeletal pain Neurological: (-) speech difficulty, (-) extremity weakness PAIN EVALUATION No data found in the last 1 encounters. PHYSICAL EXAM: WOUND ASSESSMENT: Incision healing, Well approximated incision, Non-reddened General: Appears tired, A & O x 3, alert. Neuro: Cranial nerves II-XII grossly intact; no dysmetria; able to perform [id number] and rapid alternating movements; able to follow finger with eyes; able to tap toes bilaterally. Gait: Currently in wheelchair but ambulates with walker assist WILLIS x 4 5 IMAGING: CT Brain WO IVCON performed today 09/17/24 demonstrates: In process interval decrease in the size of the left-sided subdural collection. No evidence of acute hemorrhage noted. Interval decrease in mass effect with improved [id number] midline shift. Await final radiology report. ASSESSMENT/PLAN: 1. Subdural hematoma (HCC) (S06.5XAA) - Recent hospitalization due to subdural hematoma with associated speech difficulties and falls; attempted endovascular intervention was unsuccessful. - Current CT scan shows significant improvement with resolution of active bleeding; comparison with previous scans from the and prior office visit demonstrates healing. - Neurological exam reveals no deficits in speech or motor function; incision site is healing well with no signs of infection. - Continue Keppra 500 mg BID; discussed prophylactic use to prevent seizures while hematoma resolves. - Resume Plavix on 10/02 as per cerebrovascular recommendations; delay in resumption to allow further healing of hematoma. - Scheduled follow-up appointment on 10/[address] scan to assess further resolution of hematoma. - Discussed potential for weaning off Keppra at next visit if CT scan shows complete resolution. - Advised against driving until clearance from primary care physician post-resolution of hematoma. - Patient and family understand and agree with the treatment plan. Marni Catherine APRN-VELASQUEZ Neurosurgery Nurse Practitioner [facility] FOLLOW UP: Return in about 3 weeks (around 10/08/2024) for review of CT B . This note was partially generated using Finomial voice recognition system, and there may be some incorrect words, spellings, and punctuation that were not noted in checking the note before saving. Recording using [employer] software for draft documentation of the visit was discussed with the patient/authorized retail service representative; all questions welcomed and answered. Patient/authorized retail service representative agreed to proceed documented in this encounter [facility] 09-17-2024 Note [facility] 09-17-2024 History of Presen t illness Narrative Radiology Service Progress Note PATIENT NAME: Carlito Chatterjee DATE OF SERVICE: September 17, 2024 TIME: 9:15 AM PATIENT IDENTITY VERIFICATION COMPLETED USING TWO (2) IDENTIFIERS: Name and Date of confirmed by patient verbally. FALL SCREENING: Has the patient had 2 falls in the last year or 1 fall with injury or currently using an Ambulatory Assistive Device (Walker, Cane, Wheelchair, Crutches, etc.)? Yes, Patient High Risk for Falls What interventions were put in place to prevent falls during this visit? Offered Assistance with Transfers/Clothing and Increased Observations by Caregivers PATIENT GENDER DATA: Assigned male at PATIENT RELEVANT IMPLANT DATA REVIEWED: Not Applicable PATIENT PRESENTS WITH AN IMPLANTABLE OR ATTACHED LEGAL NURSE CONSULTANT: No RADIOLOGY DEPARTMENT: CT; Exam(s) Completed: Brain PERIPHERAL IV DATA: Not applicable SIGNED BY: RT Manda(R) September 17, 2024 9:15 AM documented in this encounter [facility] 09-17-2024 Note [facility] 09-08-2024 Telephone encounter Note Spoke with Jackie at [facility] about scheduling patients [address] scan. Jackie agreed to have the patients CT scan preformed at their location. I asked that we get images pushed to us and also a call prior to discharge so that we can schedule patient for in person post op appt. [facility] 09-08-2024 Miscellaneous Notes Spoke with Jackie at [facility] about scheduling patients [address] scan. Jackie agreed to have the patients CT scan preformed at their location. I asked that we get images pushed to us and also a call prior to discharge so that we can schedule patient for in person post op appt. documented in this encounter [facility] 09-06-2024 Note HNO ID: [id number] Author: JAILENE DHALIWAL RN Service: Nursing Author Type: Registered Nurse Type: Nursing Progress Note Filed: 09/06/2024 12:24 Note Text: Report given to [facility] rehabilitation construction specialist Lakeisha. [facility] 09-06-2024 Note [facility] 09-05-2024 Note [facility] 09-05-2024 Note [facility] 09-04-2024 Telephone encounter Note Patient's called in to cancel his upcoming appointment with Marni on 09/10 as he is still admitted to the hospital. She said he will likely be going to a rehab facility once he is discharged and she is unsure where or when they can come in. I explained that it is important that he follow up at some point since he had surgery so asked that she contact the office once he is discharged to discuss getting him rescheduled. She agreed. [facility] 09-04-2024 Miscellaneous Notes Patient's called in to cancel his upcoming appointment with Marni on 09/10 as he is still admitted to the hospital. She said he will likely be going to a rehab facility once he is discharged and she is unsure where or when they can come in. I explained that it is important that he follow up at some point since he had surgery so asked that she contact the office once he is discharged to discuss getting him rescheduled. She agreed. documented in this encounter [facility] 09-04-2024 Note [facility] 09-04-2024 Note [facility] 09-04-2024 Note [facility] 09-04-2024 Note [facility] 09-03-2024 Note [facility] 09-03-2024 Note [facility] 09-02-2024 Note [facility] 09-02-2024 Note [facility] 09-01-2024 Note [facility] 09-01-2024 Note [facility] 09-01-2024 Note [facility] 08-31-2024 Note [facility] 08-31-2024 Note [facility] 08-31-2024 Note [facility] 08-31-2024 Note [facility] 08-31-2024 Note [facility] 08-31-2024 Note [facility] 08-31-2024 Note [facility] 08-31-2024 Note [facility] 08-27-2024 History of Presen t illness Narrative NEUROSURGERY POST-OP NOTE Marni Catherine APRN.EARLY CHILDHOOD ASSISTANT Christine Francois MD Date of visit: August 25, 2024 Patient Name: Mr.Charles Shanta Chatterjee Date of : 1940 Current Age: [age] year old Sex: male MRN/E# [id number] Last Office Visit: Postop SURGERY: Left craniotomy for evacuation of acute on chronic subdural hematoma on 08/10/[address] Francois. PRE -SURGICAL SYMPTOMS: Drowsy, dizzy, gait imbalance PREVIOUS SURGERY: NA SURGICAL RISK: Smoker: Every day Diabetic: No Anticoagulants / Antiplatelets: No Occupation: Retired Patient is having their 2-week post operative visit. This is an 84-year-old male with a PMHx of CAD, A-fib (Plavix/ASA), HLD, CKD, aortic dissection with repair, HLD, hep C (eradicated) who was seen for consult at [facility] after transfer from an OSH on 08/09/[address] Francois. Patient reported that he had a fall down the steps approximately 6 weeks prior causing him to strike his head against the wall. He could not recall if he had an LOC. He was initially seen at an outside urgent care and had x-rays of his left shoulder and left foot. He denied any neurological issues at the time. Over the next 4 to 6 weeks patient developed lethargy, dizziness, shuffling gait and loss of balance which prompted his visit to an outside ED. Workup was completed and showed a left frontal parietal mixed density subdural collection. Blood thinners were reversed with DDAVP and he was transferred to [facility] for higher acuity care. Once imaging reviewed by Dr. Francois, this showed a largely subacute subdural hematoma on the left with significant local compression and midline shift. Natural history was reviewed with the family and the patient with recommendation to undergo surgical decompression. This was agreed to and completed as noted above. He was started on Keppra 1 g twice daily for seizure prophylaxis. He did well following surgery and was discharged home with home care on 08/13/2024. Recommendation was to follow-up in 2 weeks for a routine postop visit, suture removal with imaging prompting his visit today. Since discharge he states that he is overall doing well and denies any specific complaints or concerns. He denies any headache, visual changes, speech deficits, seizure activity, motor or sensory deficits. He was seen at an urgent care last week for a reddened area on his incision site. He was started on a short course of Keflex. He denied any fever, copious, purulent drainage, tenderness or swelling. He states the small reddened area has resolved with the use of Keflex. He presents for image review, evaluation and plan of care. INCISION: DHIRAJ with ariadne. No signs or symptoms of infection noted. Ariadne removed without an issue. one single suture removed without an issue. Current Outpatient Medications Medication Sig Dispense Refill acetaminophen (TYLENOL) 325 mg tablet 2 tablets by ORAL/FEEDING TUBE route every 4 hours as needed for pain. amLODIPine (NORVASC) 10 mg tablet Take 10 mg by mouth once daily. rosuvastatin (CRESTOR) 10 mg tablet Take 10 mg by mouth once daily. Vardenafil HCl 20 mg tablet TAKE 1 TABLET BY MOUTH DAILY NEEDED PRIOR TO SEX ramipril (ALTACE) 10 mg capsule Take 10 mg by mouth once daily. tamsulosin ER (FLOMAX) 0.4 mg cap Take 0.4 mg by mouth once daily. 3 or 4 time a week metoprolol succinate ER (TOPROL XL) 100 mg Take 100 mg by mouth once daily. levETIRAcetam (KEPPRA) 500 mg tablet Take 1 tablet by mouth two times a day. 60 tablet 0 senna-docusate (SENNA-S) 8.6-50 mg per tablet 2 tablets by ORAL/FEEDING TUBE route two times a day for 15 days. 60 tablet 0 amoxicillin (AMOXIL) 500 mg capsule TAKE 4 CAPSULES BY MOUTH A SINGLE DOSE 1 HOUR BEFORE DENTAL APPOINTMENT No current facility-administered medications for this visit. Review of Systems All other systems reviewed and are negative. Constitutional: (+) increased sleepiness, (-) headache Eyes: (+) intermittent blurred vision, (-) diplopia, (-) vision loss Musculoskeletal: (+) shoulder pain Neurological: (+) slowed speech, (-) right-sided weakness, (-) numbness, (-) tingling, (-) comprehension difficulty PAIN EVALUATION No data found in the last 1 encounters. PHYSICAL EXAM: Mental State : Alert. Attention span and concentration normal for patient's age. Speech normal, fluent. No receptive or expressive speech deficit. Recent and remote memory normal. Orientation : Oriented to person, place and time. Higher Cortical Function : Intact speech and language. Comprehension normal. Fund of knowledge intact for pt level of education. Cranial Nerves : II: No visual field cut, no blurring. Makes and sustains eye contact. III, IV, : No double vision or lid drooping. Pupils equal and reactive to light. Extraocular muscles intact. No nystagmus. V: Normal sensation on the face, normal jaw movements. VII: No paresis on either side. VIII: No gross hearing deficit IX: Good and equal shoulder shrugs. XII: Tongue midline, no fasciculations. Sensory: SILT. Normal Sensation in bilateral upper and bilateral lower extremities to touch and noxious stimuli. Motor: Normal muscle tone and bulk. No spasticity, tremor or uncontrollable movements. Strength: Upper Extremities : R L Deltoid 5/5 5/5 Biceps 5/5 5/5 Triceps 5/5 5/5 Wrist Ext 5/5 5/5 Wrist Flx 5/5 5/5 Hand Int 5/5 5/5 Lower Extremities : Hip Flexors 5/5 5/5 Hip Extensors 5/5 5/5 Hip Abductors 5/5 5/5 Straight leg Neg Neg Ankle dorsiflex 5/5 5/5 Ankle Plantar 5/5 5/5 Cerebellar Function : Normal finger to nose. Normal rapid alternating movements. No ataxia. Gait and Station: Normal gait. No assistive device usage. WOUND ASSESSMENT: Incision healing, Well approximated incision, Non-reddened IMAGING: CT Brain WO IVCON performed on 08/24/24 demonstrates: IMPRESSION: Postsurgical changes from left-sided craniotomy. Interval resolution of pneumocephalus. Expected evolution of mixed density extra-axial hemorrhage along left cerebral convexity, as detailed above. Persistent 20 mm thickness of the mixed density hemorrhage, reasonably similar to previous examination. Continued short interval follow-up examination is recommended. Apparent new blood products along the anterior cerebral convexities are most likely secondary to resolution of pneumocephalus. Continued short interval follow-up examination is recommended. Unchanged mass effect on left cerebral convexity, with minimal 3 mm midline shift to the right. ASSESSMENT/PLAN: 1. Subdural hematoma (HCC) (S06.5XAA) - Recent CT scan shows improvement with interval resolution of pneumocephalus. - Persistent 20 mm thickness of mixed density hemorrhage, similar to previous CT scan. - Per radiology report, suspect new blood products along the anterior cerebral convexity are likely related to resolution of pneumocephalus. - [place] removed; no signs of infection at the incision site. - Patient reports that he completed Keppra 1 g twice daily this morning. I told him I would like him to continue Keppra for seizure prophylaxis. - Will provide Keppra at a reduced dosage to minimize sedation; prescription sent to [facility] in [place] for a one-month supply. - Advised to avoid sun exposure to the incision site, wear a hat, and use mild shampoo. - Continue activity restrictions including no lifting over 15 pounds, bending, or driving until further notice. - Scheduled follow-up in two weeks with a repeat CT scan to monitor progress. - Educated on signs of deterioration, including increased somnolence, right-sided weakness, speech difficulties, and severe headaches; instructed to seek emergency care if these occur. - Continue to hold all blood thinning medications until cleared by neurosurgery. Marni Catherine APRN-VELASQUEZ Neurosurgery Nurse Practitioner [facility] FOLLOW UP: Return in 2 weeks (on 09/10/2024) for post-op visit with CT brain. This note was partially generated using Finomial voice recognition system, and there may be some incorrect words, spellings, and punctuation that were not noted in checking the note before saving. Recording using [employer] software for draft documentation of the visit was discussed with the patient/authorized retail service representative; all questions welcomed and answered. Patient/authorized retail service representative agreed to proceed documented in this encounter [facility] 08-27-2024 Note [facility] 08-24-2024 History of Presen t illness Narrative Radiology Service Progress Note PATIENT NAME: Carlito Chatterjee DATE OF SERVICE: August 24, 2024 TIME: 10:57 AM PATIENT IDENTITY VERIFICATION COMPLETED USING TWO (2) IDENTIFIERS: Name and Date of confirmed by patient verbally. FALL SCREENING: Has the patient had 2 falls in the last year or 1 fall with injury or currently using an Ambulatory Assistive Device (Walker, Cane, Wheelchair, Crutches, etc.)? No PATIENT GENDER DATA: Assigned male at PATIENT RELEVANT IMPLANT DATA REVIEWED: Yes PATIENT PRESENTS WITH AN IMPLANTABLE OR ATTACHED LEGAL NURSE CONSULTANT: No RADIOLOGY DEPARTMENT: CT; Exam(s) Completed: Brain PERIPHERAL IV DATA: Not applicable SIGNED BY: RT Benny(Graham) August 24, 2024 10:57 AM documented in this encounter [facility] 08-24-2024 Note [facility] 08-21-2024 Note HNO ID: [id number] Author: JEFFY BADILLO APRN.EARLY CHILDHOOD ASSISTANT Service: ? Author Type: Nurse Practitioner Type: Progress Notes Filed: 08/21/2024 11:11 Note Text: [facility] Subjective Carlito Chatterjee is a 84 year old male. Patient presents with: Wound Check: Check ariadne in head BP 115/50 Pulse (!) 59 Temp 36.4 ?C (97.6 ?F) Resp 18 Wt 79 kg (174 lb 2.6 oz) SpO2 96% BMI 24.99 kg/m? HPI Nontoxic-appearing 84-year-old male presents urgent care for recheck of surgical wound. Was evaluated by me yesterday. Presents today for reevaluation and wound check. States wound is feeling better. Is less swollen. Less tender. Has been taking antibiotics as prescribed. No fevers. No headache. Overall feels well. Past medical history prescription medications allergies reviewed. Review of Systems Constitutional: Negative for chills, diaphoresis, fatigue and fever. HENT: Negative for congestion, ear discharge, ear pain, rhinorrhea, sinus pressure, sinus pain, sneezing and sore throat. Eyes: Negative for pain, discharge, redness, itching and visual disturbance. Respiratory: Negative for cough, chest tightness, shortness of breath and wheezing. Cardiovascular: Negative for chest pain. Gastrointestinal: Negative for abdominal pain, constipation, diarrhea, nausea and vomiting. Musculoskeletal: Negative for joint swelling, neck pain and neck stiffness. Skin: Negative for rash. Neurological: Negative for dizziness, weakness and headaches. Objective Temp 36.4 ?C (97.6 ?F) Wt 79 kg (174 lb 2.6 oz) BMI 24.99 kg/m? Physical Exam Constitutional: Appearance: Normal appearance. He is normal weight. HENT: Head: Normocephalic. Comments: Surgical wound noted highlighted area. Slight amount of erythema noted. No drainage. No remote redness. No fluctuance Eyes: Conjunctiva/sclera: Conjunctivae normal. Cardiovascular: Rate and Rhythm: Normal rate. Pulmonary: Effort: Pulmonary effort is normal. Musculoskeletal: Cervical back: Normal range of motion. Skin: Findings: No rash. Neurological: General: No focal deficit present. Mental Status: He is alert and oriented to person, place, and time. Mental status is at baseline. {ASSESSMENT/PLAN: 1. Encounter for post surgical wound check - ICD9: V58.49, ICD10: Z48.89 Discussed care plan with provider that patient is following up with next week. Contacted patient. Will continue plan of care as discussed red flags for ER evaluation discussed. Jeffy Badillo APRN.EARLY CHILDHOOD ASSISTANT History and Record Review Clinical information obtained from an independent historian. History obtained from or confirmed by: spouse and parent. External record(s) reviewed: prior outpatient record. Disposition The patient was discharged. OTC Medications were advised: Procedures [facility] 08-21-2024 History of Presen t illness Narrative Images from the original note were not included. [facility] Subjective Carlito Chatterjee is a 84 year old male. Patient presents with: Wound Check: Check ariadne in head BP 115/50 Pulse (!) 59 Temp 36.4 C (97.6 F) Resp 18 Wt 79 kg (174 lb 2.6 oz) SpO2 96% BMI 24.99 kg/m HPI Nontoxic-appearing 84-year-old male presents urgent care for recheck of surgical wound. Was evaluated by me yesterday. Presents today for reevaluation and wound check. States wound is feeling better. Is less swollen. Less tender. Has been taking antibiotics as prescribed. No fevers. No headache. Overall feels well. Past medical history prescription medications allergies reviewed. Review of Systems Constitutional: Negative for chills, diaphoresis, fatigue and fever. HENT: Negative for congestion, ear discharge, ear pain, rhinorrhea, sinus pressure, sinus pain, sneezing and sore throat. Eyes: Negative for pain, discharge, redness, itching and visual disturbance. Respiratory: Negative for cough, chest tightness, shortness of breath and wheezing. Cardiovascular: Negative for chest pain. Gastrointestinal: Negative for abdominal pain, constipation, diarrhea, nausea and vomiting. Musculoskeletal: Negative for joint swelling, neck pain and neck stiffness. Skin: Negative for rash. Neurological: Negative for dizziness, weakness and headaches. Objective Temp 36.4 C (97.6 F) Wt 79 kg (174 lb 2.6 oz) BMI 24.99 kg/m Physical Exam Constitutional: Appearance: Normal appearance. He is normal weight. HENT: Head: Normocephalic. Comments: Surgical wound noted highlighted area. Slight amount of erythema noted. No drainage. No remote redness. No fluctuance Eyes: Conjunctiva/sclera: Conjunctivae normal. Cardiovascular: Rate and Rhythm: Normal rate. Pulmonary: Effort: Pulmonary effort is normal. Musculoskeletal: Cervical back: Normal range of motion. Skin: Findings: No rash. Neurological: General: No focal deficit present. Mental Status: He is alert and oriented to person, place, and time. Mental status is at baseline. {ASSESSMENT/PLAN: 1. Encounter for post surgical wound check - ICD9: V58.49, ICD10: Z48.89 Discussed care plan with provider that patient is following up with next week. Contacted patient. Will continue plan of care as discussed red flags for ER evaluation discussed. Jeffy Badillo APRN.VELASQUEZ History and Record Review Clinical information obtained from an independent historian. History obtained from or confirmed by: spouse and parent. External record(s) reviewed: prior outpatient record. Disposition The patient was discharged. OTC Medications were advised: Procedures documented in this encounter [facility] 08-20-2024 Note HNO ID: [id number] Author: JEFFY BADILLO APRN.VELASQUEZ Service: ? Author Type: Nurse Practitioner Type: Progress Notes Filed: 08/20/2024 10:52 Note Text: Subjective HPI Nontoxic-appearing 84-year-old male presents urgent care accompanied by spouse. Requesting ariadne wound check. States on 10 August had a craniotomy to evacuate subdural hematoma. Discharged from the hospital on the . Presents today for wound check. States 2 days ago has noticed some pus coming out of wound. States has been using Polytrim as advised. Has noticed some improvement. Presents today for wound check. Overall is feeling well no fevers. No nausea. No vomiting. No headaches. No visual changes. Past medical history prescription medications allergies reviewed. .Patient presents with: Wound Check: Ariadne in head, need checked PAST MEDICAL HISTORY Diagnosis Date Arrhythmia Coronary artery disease Essential hypertension H/O colonoscopy with polypectomy 04/26/2011 multiple adenomatous polyps - 2 yr surveillance recommended Hyperlipidemia Impaired glucose tolerance Kidney disease PMH - PAST MEDICAL HISTORY OF hep C - treated in 2016. lab confirms virus irradicated. 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 Aguilar COLONOSCOPY FLX DX W/COLLJ SPEC WHEN PFRMD 10/22/2016 Colonoscopy COLONOSCOPY SCREENING 12/23/2023 HERNIA REPAIR HX groin (right) PAST SURGICAL HISTORY OF left knee surgery PAST SURGICAL HISTORY OF 06/09/2000 heart cath PAST SURGICAL HISTORY OF 01/2014 new aorta ascending TONSILLECTOMY PRIMARY/SECONDARY Tonsillectomy ALLERGIES Celebrex [Celecoxib] MEDICATIONS acetaminophen (TYLENOL) 325 mg tablet 2 tablets by ORAL/FEEDING TUBE route every 4 hours as needed for pain. bacitracin zinc-polymyxin B (POLYSPORIN) 500-10,000 unit/gram ointment Apply to affected area two times a day. levETIRAcetam (KEPPRA) 1,000 mg tablet Take 1 tablet by mouth two times a day for 22 doses. senna-docusate (SENNA-S) 8.6-50 mg per tablet 2 tablets by ORAL/FEEDING TUBE route two times a day for 15 days. amLODIPine (NORVASC) 10 mg tablet Take 10 mg by mouth once daily. amoxicillin (AMOXIL) 500 mg capsule TAKE 4 CAPSULES BY MOUTH A SINGLE DOSE 1 HOUR BEFORE DENTAL APPOINTMENT Fluorouracil 5 % cream APPLY THIN LAYER TO AFFECTED AREAS TWICE A DAY FOR 2 WEEKS. WASH HANDS IMMEDIATELY AFTER EACH APPLICATION rosuvastatin (CRESTOR) 10 mg tablet Take 10 mg by mouth once daily. Vardenafil HCl 20 mg tablet TAKE 1 TABLET BY MOUTH DAILY NEEDED PRIOR TO SEX ramipril (ALTACE) 10 mg capsule Take 10 mg by mouth once daily. tamsulosin ER (FLOMAX) 0.4 mg cap Take 0.4 mg by mouth once daily. 3 or 4 time a week metoprolol succinate ER (TOPROL XL) 100 mg Take 100 mg by mouth once daily. FAMILY HISTORY Problem Relation Age of Onset Ischemic Heart Disease Father Ischemic Heart Disease Mother Ischemic Heart Disease Sister 71 Diabetes Brother Stroke Brother Social History Tobacco Use Smoking status: Every Day Types: Pipe Passive exposure: Past Smokeless tobacco: Never Tobacco comments: pipe for 50 years /quit started again with pipe Vaping Use Vaping status: Never Used Substance Use Topics Alcohol use: Not Currently Drug use: Never BP 104/64 Pulse 65 Temp 36.8 ?C (98.2 ?F) Resp 20 Wt 79.1 kg (174 lb 6.1 oz) SpO2 98% BMI 25.02 kg/m? Review of Systems Constitutional: Negative for chills, fever and malaise/fatigue. HENT: Negative for congestion, ear discharge, ear pain, sinus pain and sore throat. Eyes: Negative for blurred vision, pain, discharge and redness. Respiratory: Negative for cough, hemoptysis, sputum production, shortness of breath, wheezing and stridor. Cardiovascular: Negative for chest pain. Gastrointestinal: Negative for abdominal pain, diarrhea, nausea and vomiting. Musculoskeletal: Negative for myalgias. Skin: Negative for itching and rash. Surgical wound scalp Neurological: Negative for dizziness and headaches. Objective Physical Exam Constitutional: General: He is not in acute distress. Appearance: He is not toxic-appearing. HENT: Head: Normocephalic. Comments: Surgical wound ariadne noted highlighted area. Approximately a 1 cm erythematous slightly inverted area noted with a small amount of yellow sanguinous drainage noted.. No purulent drainage noted. No fluctuance noted with palpation. No remote redness noted. Nose: Nose normal. Eyes: Pupils: Pupils are equal, round, and reactive to light. Cardiovascular: Rate and Rhythm: Normal rate. Pulmonary: Effort: Pulmonary effort is normal. No respiratory distre (more content not included)... [facility] 08-20-2024 History of Presen t illness Narrative Images from the original note were not included. Subjective HPI Nontoxic-appearing 84-year-old male presents urgent care accompanied by spouse. Requesting ariadne wound check. [facility] on 10 August had a craniotomy to evacuate subdural hematoma. Discharged from the hospital on the . Presents today for wound check. [facility] 2 days ago has noticed some pus coming out of wound. States has been using Polytrim as advised. Has noticed some improvement. Presents today for wound check. Overall is feeling well no fevers. No nausea. No vomiting. No headaches. No visual changes. Past medical history prescription medications allergies reviewed. .Patient presents with: Wound Check: Ariadne in head, need checked PAST MEDICAL HISTORY Diagnosis Date Arrhythmia Coronary artery disease Essential hypertension H/O colonoscopy with polypectomy 04/26/2011 multiple adenomatous polyps - 2 yr surveillance recommended Hyperlipidemia Impaired glucose tolerance Kidney disease PMH - PAST MEDICAL HISTORY OF hep C - treated in 2016. lab confirms virus irradicated. 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 Aguilar COLONOSCOPY FLX DX W/COLLJ SPEC WHEN PFRMD 10/22/2016 Colonoscopy COLONOSCOPY SCREENING 12/23/2023 HERNIA REPAIR HX groin (right) PAST SURGICAL HISTORY OF left knee surgery PAST SURGICAL HISTORY OF 06/09/2000 heart cath PAST SURGICAL HISTORY OF 01/2014 new aorta ascending TONSILLECTOMY PRIMARY/SECONDARY <AGE 12 Tonsillectomy ALLERGIES Celebrex [Celecoxib] MEDICATIONS acetaminophen (TYLENOL) 325 mg tablet 2 tablets by ORAL/FEEDING TUBE route every 4 hours as needed for pain. bacitracin zinc-polymyxin B (POLYSPORIN) 500-10,000 unit/gram ointment Apply to affected area two times a day. levETIRAcetam (KEPPRA) 1,000 mg tablet Take 1 tablet by mouth two times a day for 22 doses. senna-docusate (SENNA-S) 8.6-50 mg per tablet 2 tablets by ORAL/FEEDING TUBE route two times a day for 15 days. amLODIPine (NORVASC) 10 mg tablet Take 10 mg by mouth once daily. amoxicillin (AMOXIL) 500 mg capsule TAKE 4 CAPSULES BY MOUTH A SINGLE DOSE 1 HOUR BEFORE DENTAL APPOINTMENT Fluorouracil 5 % cream APPLY THIN LAYER TO AFFECTED AREAS TWICE A DAY FOR 2 WEEKS. WASH HANDS IMMEDIATELY AFTER EACH APPLICATION rosuvastatin (CRESTOR) 10 mg tablet Take 10 mg by mouth once daily. Vardenafil HCl 20 mg tablet TAKE 1 TABLET BY MOUTH DAILY NEEDED PRIOR TO SEX ramipril (ALTACE) 10 mg capsule Take 10 mg by mouth once daily. tamsulosin ER (FLOMAX) 0.4 mg cap Take 0.4 mg by mouth once daily. 3 or 4 time a week metoprolol succinate ER (TOPROL XL) 100 mg Take 100 mg by mouth once daily. FAMILY HISTORY Problem Relation Age of Onset Ischemic Heart Disease Father Ischemic Heart Disease Mother Ischemic Heart Disease Sister 71 Diabetes Brother Stroke Brother Social History Tobacco Use Smoking status: Every Day Types: Pipe Passive exposure: Past Smokeless tobacco: Never Tobacco comments: pipe for 50 years /quit started again with pipe Vaping Use Vaping status: Never Used Substance Use Topics Alcohol use: Not Currently Drug use: Never BP 104/64 Pulse 65 Temp 36.8 C (98.2 F) Resp 20 Wt 79.1 kg (174 lb 6.1 oz) SpO2 98% BMI 25.02 kg/m Review of Systems Constitutional: Negative for chills, fever and malaise/fatigue. HENT: Negative for congestion, ear discharge, ear pain, sinus pain and sore throat. Eyes: Negative for blurred vision, pain, discharge and redness. Respiratory: Negative for cough, hemoptysis, sputum production, shortness of breath, wheezing and stridor. Cardiovascular: Negative for chest pain. Gastrointestinal: Negative for abdominal pain, diarrhea, nausea and vomiting. Musculoskeletal: Negative for myalgias. Skin: Negative for itching and rash. Surgical wound scalp Neurological: Negative for dizziness and headaches. Objective Physical Exam Constitutional: General: He is not in acute distress. Appearance: He is not toxic-appearing. HENT: Head: Normocephalic. Comments: Surgical wound ariadne noted highlighted area. Approximately a 1 cm erythematous slightly inverted area noted with a small amount of yellow sanguinous drainage noted.. No purulent drainage noted. No fluctuance noted with palpation. No remote redness noted. Nose: Nose normal. Eyes: Pupils: Pupils are equal, round, and reactive to light. Cardiovascular: Rate and Rhythm: Normal rate. Pulmonary: Effort: Pulmonary effort is normal. No respiratory distress. Musculoskeletal: Cervical back: Normal range of motion. Skin: General: Skin is warm and dry. Neurological: General: No focal deficit present. Mental Status: He is alert. ASSESSMENT/PLAN: 1. Encounter for post surgical wound check - ICD9: V58.49, ICD10: Z48.89 Per patient wound is progressively healing. No constitutional symptoms. We discussed emergency room evaluation versus outpatient treatment. Will place on Keflex 4 times a day. Return tomorrow for wound reevaluation. Patient was educated on supportive therapies. Patient will follow up with primary care provider as needed. Patient was instructed to immediately proceed to emergency room for any new, worsening, or symptoms lasting longer than anticipated. The patient's clinical presentation is otherwise unremarkable at this time. Based on exam and clinical finding, the patient is stable for discharge. Plan of care was discussed with patient. Patient verbalizes understanding and agrees to plan of care. This note was generated using Finomial software. It may contain errors in wording, punctuation, or spelling. Jeffy Badillo APRN.VELASQUEZ documented in this encounter [facility] 08-19-2024 Note Brandt Perez [facility] 08-19-2024 History of Presen t illness Narrative Summary: OT evaluation Images from the original note were not included. Episode Visit Count: 1 Therapist That Will Accept/Oversee The Plan Of Care: Qian Mccain Start of Care Date: 08/19/24 Onset Date: 08/09/24 Plan of Care Certification Date: 08/19/24 Next Certification Due Date: 08/19/24 Patient Identified by Name and Date of : Yes [facility]ER[facility]Y OCCUPATIONAL THERAPY EVALUATION PLAN OF CARE: Assessment: Carlito Chatterjee presents with diagnosis of SDH with evacuation that interferes with walking, standing, heavy exertion, lifting, physical activities, carrying, pushing . The patient presents with impairments in walking and mobility. PROMIS (Patient-Reported Outcomes Measurement Information System) scores were reviewed and identified as within normal limits. Prognosis for therapy is . The patient will benefit from skilled therapy services to meet the goals established for this plan of care as noted below. Pt and OT in agreement to defer concerns to more thorough evaluation for PT in regards to balance / ambulation; pt set up for PT eval already. Goals for Episode of Care: established 08/19/24 Pt will report understanding of safety and precautions in regards to diagnosis; GOAL MET Patient Goals: walking / balance Time Frame for Goals and Treatment : 08/19/24 Planned Interventions, Frequency, and Duration: Current Frequency: Discontinue Therapy Services Total Number of Visits Planned: 1 Planned Treatment Interventions: Self-alf management ([id number]) PLAN FOR NEXT VISIT: Patient demonstrates good understanding of plan of care and treatment. The above goals and plan of care were discussed and agreed upon by patient/family. SUBJECTIVE: OT initial evaluation; pt went to ER because he wasn't acting like himself (had fall 6 weeks prior with possible LOC); found to have SDH with evacuation 08/09; pt reports he has pretty much returned to his normal self with exception of feeling a little of with balance and walking Functional Limitations: walking, standing, heavy exertion, lifting, physical activities, carrying, pushing Prior Level of Function: Independent without limitations Patient Goals: walking / balance Intake Information: Prescription present Previous Treatment: Acute Hospital Falls Interview: Fall without injury in the last year Relevant History Right or Left Handed: Right Employment: Retired ([employer]) Hobbies / Interests: cycling Home Environment Patient Lives With: Spouse Assistance Available: 24-Hour Equipment Owned: Cane, Walker- Wheeled, Crutch(es), Shower Chair Pain: Pain Pain Level: 2 Pain Location: Shoulder - Left Description: Aching Post Treatment Pain Post Treatment Pain Level: No Change PROMIS Scales 08/19/2024 Higher is Better Self-Eff Symptom - T Score 66 (High) Self-Eff Symptom - Percentile 95 Upper Extremity - T Score 52 (within normal limits) Upper Extremity - Percentile 58 Proxy-reported T-scores: mean of general population = 50. 5 points is clinically meaningfully difference Percentiles provide an indication of how the patient's score ranks in relation to the general population. Higher percentile rankings indicate better function/quality of life. 50th percentile is the average of the general population and indicates half of respondents had a worse score. OBJECTIVE MEASURES WITH LEVEL OF FUNCTION: Follows Commands: 2-step Commands, 3-step Commands Safety Judgment: Appropriate awareness of safety precautions Short Blessed Final Score: 4 Vision Vision Deficits: Wears corrective lenses Hand Strength R Bath Design Sales Consultant Position 1 (lbs): 28 lbs L Bath Design Sales Consultant Position 1 (lbs): 22 lbs R Lateral Pinch (lbs): 10 lbs R Tripod/ 3 Jaw Lavon (lbs): 10 lbs L Lateral Pinch (lbs): 10 lbs L Tripod/ 3 Jaw Lavon (lbs): 6 lbs Communication Comprehension: Complex auditory and visual communication Thought Process: Logical, coherent thought form Expression: Expresses complex ideas clearly and fluently Conversation: Appropriate thought content, Responds when asked direct questions Sensory Sensory Deficits: (reports normal sensation) UE AROM R UE AROM: WFL L UE AROM: WFL UE and Cervical Strength Strength Tested: Shoulder All, Hand R UE Strength: grossly 5/5 L UE Strength: grossly 5/5 Current Activities Of Daily Living Feeding: Independent Grooming: Independent Bathing Upper Body: Independent Bathing Lower Body: Independent Dressing Upper Body: Independent Dressing Lower Body : Independent Toileting: Independent Instrumental Activities of Daily Living Difficulty noted with: Meal/Beverage Prep, Cooking, Cleaning, Laundry, Shopping, Driving Additional Instrumental Activities of Daily Living: pt reports spouse does IADLS; has not been allowed to drive since hospitalization Current Functional Mobility Functional Mobility: Functional Mobility Static Sitting Balance: Patient able to maintain steady balance without handhold support Dynamic Sitting Balance: Patient accepts moderate challenge, able to maintain balance while picking up object off floor Static Standing Balance: Patient able to maintain balance without handhold support, limited postural sway Functional Performance Test Results 9 Hole Peg Test Right (seconds): 34.9 9 Hole Peg Test Left (seconds): 30.9 Education: Education Learning Preferences: Demonstration, Explanation, Performance, Printed Materials Barriers: None Learning/educational needs: Home exercise program Education Provided: Yes, see treatment interventions for education provided Education Provided To: Patient Education Mode/Type: Demonstration, Explanation/Discussion, Literature/Printed Materials, Performance Response to Education/Teach Back: States/Identifies, Return Demonstration, Requires Review/Additional Education TREATMENT: OT Treatment Interventions : Self-Snf Management Evaluation Evaluation Self-Snf Management: 1: Discussed role of OT; pt reports independence with goals and lifestyle for OT at this time; encouragement for active lifestyle and safety Skilled Intervention: Reviewed patient specific diagnosis in relation to activities of daily living/home management. Activity progression based on professional judgement. Billing * Evaluation Low Complexity: 1 Unit Self-Care/Home Management Treatment Minutes: 10 Skilled Treatment Time Minutes (timed and untimed codes): 25 Total Session Time (minutes): 25 Session Start Time : 909 Session Stop Time : 934 Qian Mccain OTR/L documented in this encounter [facility] 08-18-2024 Telephone encounter Note I spoke to patient spouse confirming day time and location of post op [facility] 08-18-2024 Miscellaneous Notes I spoke to patient spouse confirming day time and location of post op documented in this encounter [facility] 08-17-2024 Telephone encounter Note Patient called in to schedule post op appt, I was unsure if it was appropriate to schedule with Marni. I informed the that Marni is off today but I will speak to Marni and call spouse back tomorrow to schedule appropriately. Spouse understood. I sent a message to Marni [facility] 08-17-2024 Miscellaneous Notes Patient called in to schedule post op appt, I was unsure if it was appropriate to schedule with Marni. I informed the that Marni is off today but I will speak to Marni and call spouse back tomorrow to schedule appropriately. Spouse understood. I sent a message to Marni documented in this encounter [facility] 08-13-2024 Note [facility] 08-12-2024 Note [facility] 08-12-2024 Note [facility] 08-12-2024 Note [facility] 08-11-2024 Note [facility] 08-11-2024 Note [facility] 08-11-2024 Note [facility] 08-11-2024 Note [facility] 08-10-2024 Note [facility] [place] 08-10-2024 Note [facility] [place] 08-10-2024 Note [facility] [place] 08-10-2024 Note [facility] [place] 08-10-2024 Note [facility] [place] 08-10-2024 Note [facility] 07-07-2024 Telephone encounter Note SPECIALTY CARE COORDINATION FOLLOW-UP NOTE Summary: Contacted patient regarding pathology results from his polyp taken on 06/29/24. Polyp is benign and patient is to have another colonscopy with Dr. Ramsay in 6 months. Patient expressed understanding. Signature Blanca Anne RN July 07, 2024 [facility] 07-07-2024 Miscellaneous Notes SPECIALTY CARE COORDINATION FOLLOW-UP NOTE Summary: Contacted patient regarding pathology results from his polyp taken on 06/29/24. Polyp is benign and patient is to have another colonscopy with Dr. Ramsay in 6 months. Patient expressed understanding. Signature Blanac Anne RN July 07, 2024 documented in this encounter [facility] 06-29-2024 Nurse Note AMBULATORY PATIENT EDUCATION NOTE TOPIC: GI PROCEDURES: Colonoscopy with or without biopsies based on clinical findings READINESS TO LEARN INSTRUCTION PROVIDED TO: Patient and family member COGNITIVE ABILITY: Alert and oriented PTED MOTIVATION TO LEARN: Eager Interested FAMILY SUPPORT: High - Very involved in pt care IPATIENT LEARNS BEST BY: Written Instruction - Hand-outs Verbal Instruction FACTORS AFFECTING LEARNING: None PHYSICAL LIMITATIONS AFFECTING LEARNING: None LEARNING RESPONSE METHOD OF INSTRUCTION: Individual instruction PATIENT / FAMILY RESPONSE: Verbalizes understanding of: WORSENING CONDITION-Signs and symptoms of a worsening condition that warrant a call to the physician FOLLOW-UP PLAN: Complete - No need for follow-up SUPPLEMENTAL MATERIAL: Procedure Discharge Instructions REFERRAL (RECOMMENDATION): None [facility] 06-29-2024 Nurse Note AMBULATORY PATIENT EDUCATION NOTE TOPIC: GI PROCEDURES: Colonoscopy with or without biopsies based on clinical findings READINESS TO LEARN INSTRUCTION PROVIDED TO: Patient and family member COGNITIVE ABILITY: Alert and oriented PTED MOTIVATION TO LEARN: Eager Interested FAMILY SUPPORT: High - Very involved in pt care IPATIENT LEARNS BEST BY: Written Instruction - Hand-outs Verbal Instruction FACTORS AFFECTING LEARNING: None PHYSICAL LIMITATIONS AFFECTING LEARNING: None LEARNING RESPONSE METHOD OF INSTRUCTION: Individual instruction PATIENT / FAMILY RESPONSE: Verbalizes understanding of: WORSENING CONDITION-Signs and symptoms of a worsening condition that warrant a call to the physician FOLLOW-UP PLAN: Complete - No need for follow-up SUPPLEMENTAL MATERIAL: Procedure Discharge Instructions REFERRAL (RECOMMENDATION): None PRE OP LEARNING ASSESSMENT PROCEDURE/SURGERY: GI PROCEDURES: Colonoscopy READINESS TO LEARN COGNITIVE ABILITY: Alert and oriented MOTIVATION TO LEARN: Interested FAMILY SUPPORT: Moderate - Family present but overwhelmed PATIENT LEARNS BEST BY: Individual Instruction Verbal Instruction FACTORS AFFECTING LEARNING: None PHYSICAL LIMITATIONS AFFECTING LEARNING: None Electronically Signed By: Savita Patel RN In Department: GASTROENTEROLOGY documented in this encounter [facility] 06-29-2024 Nurse Note PRE OP LEARNING ASSESSMENT PROCEDURE/SURGERY: GI PROCEDURES: Colonoscopy READINESS TO LEARN COGNITIVE ABILITY: Alert and oriented MOTIVATION TO LEARN: Interested FAMILY SUPPORT: Moderate - Family present but overwhelmed PATIENT LEARNS BEST BY: Individual Instruction Verbal Instruction FACTORS AFFECTING LEARNING: None PHYSICAL LIMITATIONS AFFECTING LEARNING: None Electronically Signed By: Savita Patel RN In Department: GASTROENTEROLOGY [facility] 06-27-2024 Instructions Jennifer Pagan APRN.EARLY CHILDHOOD ASSISTANT - 06/27/2024 12:31 PM EDT ASSESSMENT/PLAN: 1. Foot injury, left, initial encounter - ICD9: 959.7, ICD10: S99.922A (primary diagnosis) - XR FOOT GENERAL 3V AP/LAT/OBL LEFT IMPRESSION: Questionable nondisplaced fracture base of the 5th proximal phalanx. Clinical correlation with point tenderness and follow-up radiographs in 10-14 days can be obtained to exclude/confirm fracture. Other findings as described. Global Sales Director: BRIONNA Transcribe Date/Time: Jun 27 2024 12:10P Dictated by : FAUSTO QUIROGA DO - patient placed in air cast walking boot - wear this while you are awake, may take off at night. - follow up with Dr. Marie (manager public) in one week for recheck. 2. Fall from stairs - ICD9: E880.9, ICD10: W10.9XXA - Discussed red flags and need for immediate medical evaluation if any occur. - Discussed supportive care treatment with rest and analgesia. - Discussed expected course of illness Jennifer Pagan APRN.EARLY CHILDHOOD ASSISTANT documented in this encounter [facility] 06-27-2024 History of Presen t illness Narrative Radiology Service Progress Note PATIENT NAME: Carlito Chatterjee DATE OF SERVICE: June 27, 2024 TIME: 11:07 AM PATIENT IDENTITY VERIFICATION COMPLETED USING TWO (2) IDENTIFIERS: Name and Date of confirmed by patient verbally. FALL SCREENING: Has the patient had 2 falls in the last year or 1 fall with injury or currently using an Ambulatory Assistive Device (Walker, Cane, Wheelchair, Crutches, etc.)? Yes, Patient High Risk for Falls What interventions were put in place to prevent falls during this visit? Increased Observations by Caregivers PATIENT GENDER DATA: Assigned male at PATIENT RELEVANT IMPLANT DATA REVIEWED: Not Applicable PATIENT PRESENTS WITH AN IMPLANTABLE OR ATTACHED LEGAL NURSE CONSULTANT: No RADIOLOGY DEPARTMENT: General X-ray: Exam(s) Completed: Lower Extremity X-Ray(s): Foot, Left PERIPHERAL IV DATA: Not applicable SIGNED BY: RT Terrell(R) June 27, 2024 11:07 AM documented in this encounter [facility] 06-27-2024 Note HNO ID: [id number] Author: SANTHOSH GORDON RT(Graham) Service: ? Author Type: Technologist Type: Progress Notes Filed: 06/27/2024 11:14 Note Text: Radiology Service Progress Note PATIENT NAME: Carlito Chatterjee DATE OF SERVICE: June 27, 2024 TIME: 11:07 AM PATIENT IDENTITY VERIFICATION COMPLETED USING TWO (2) IDENTIFIERS: Name and Date of confirmed by patient verbally. FALL SCREENING: Has the patient had 2 falls in the last year or 1 fall with injury or currently using an Ambulatory Assistive Device (Walker, Cane, Wheelchair, Crutches, etc.)? Yes, Patient High Risk for Falls What interventions were put in place to prevent falls during this visit? Increased Observations by Caregivers PATIENT GENDER DATA: Assigned male at PATIENT RELEVANT IMPLANT DATA REVIEWED: Not Applicable PATIENT PRESENTS WITH AN IMPLANTABLE OR ATTACHED LEGAL NURSE CONSULTANT: No RADIOLOGY DEPARTMENT: General X-ray: Exam(s) Completed: Lower Extremity X-Ray(s): Foot, Left PERIPHERAL IV DATA: Not applicable SIGNED BY: RT Terrell(R) June 27, 2024 11:07 AM [facility] 06-27-2024 Note HNO ID: [id number] Author: JENNIFER PAGAN APRN.EARLY CHILDHOOD ASSISTANT Service: ? Author Type: Nurse Practitioner Type: Progress Notes Filed: 06/27/2024 12:36 Note Text: [facility] Subjective Carlito Chatterjee is a 84 year old male. Patient presents with: Left foot injury: X5 days HPI Carlito Chatterjee is a 84 year old male who presents with left foot pain, swelling, and bruising. He was seen here on 06/23 and had left shoulder and left knee xrays. He rates foot pain 7/10 and described it as aching. He has bruising around toes 3-5. Denies ankle pain or injury. Review of Systems Constitutional: Negative for fever. Musculoskeletal: Positive for joint swelling. See HPI Skin: Positive for color change. Objective BP 106/68 Pulse 62 Resp 16 Wt 80.8 kg (178 lb 2.1 oz) SpO2 98% BMI 25.93 kg/m? PAST MEDICAL HISTORY Diagnosis Date - Arrhythmia - Coronary artery disease - H/O colonoscopy with polypectomy 04/26/2011 multiple adenomatous polyps - 2 yr surveillance recommended - Hyperlipidemia - Impaired glucose tolerance - Kidney disease - PMH - PAST MEDICAL HISTORY OF hep C - treated in 2016. lab confirms virus irradicated. 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 Aguilar - COLONOSCOPY FLX DX W/COLLJ SPEC WHEN PFRMD 10/22/2016 Colonoscopy - COLONOSCOPY SCREENING 12/23/2023 - HERNIA REPAIR HX groin (right) - PAST SURGICAL HISTORY OF left knee surgery - PAST SURGICAL HISTORY OF 06/09/2000 heart cath - PAST SURGICAL HISTORY OF 01/2014 new aorta ascending - TONSILLECTOMY PRIMARY/SECONDARY Tonsillectomy ALLERGIES Celebrex [Celecoxib] MEDICATIONS - Vardenafil HCl 20 mg tablet TAKE 1 TABLET BY MOUTH DAILY NEEDED PRIOR TO SEX - ramipril (ALTACE) 10 mg capsule Take 10 mg by mouth once daily. - tamsulosin ER (FLOMAX) 0.4 mg cap Take 0.4 mg by mouth once daily. 3 or 4 time a week - amLODIPine (NORVASC) 5 mg tablet Take 5 mg by mouth once daily. - metoprolol succinate ER (TOPROL XL) 100 mg Take 100 mg by mouth once daily. - rosuvastatin (CRESTOR) 5 mg tablet Take 10 mg by mouth once daily. - aspirin 81 mg chewable tablet Take 81 mg by mouth once daily. 3 time a week - clopidogrel (PLAVIX) 75 mg tablet Take 1 tablet by mouth once daily. FAMILY HISTORY Problem Relation Age of Onset - Ischemic Heart Disease Father - Ischemic Heart Disease Mother - Ischemic Heart Disease Sister 71 - Diabetes Brother - Stroke Brother Social History Tobacco Use - Smoking status: Every Day Types: Pipe Passive exposure: Past - Smokeless tobacco: Never - Tobacco comments: pipe for 50 years /quit -2016 started again with pipe Vaping Use - Vaping status: Never Used Substance Use Topics - Alcohol use: Not Currently - Drug use: Never Physical Exam Vitals and nursing note reviewed. Constitutional: General: He is not in acute distress. Appearance: Normal appearance. He is not ill-appearing. Musculoskeletal: General: Swelling, tenderness and signs of injury present. No deformity. Left ankle: Normal. No swelling or ecchymosis. No tenderness. Normal range of motion. Normal pulse. Left Achilles Tendon: Normal. No tenderness or defects. Feet: Skin: General: Skin is warm and dry. Capillary Refill: Capillary refill takes less than 2 seconds. Findings: Bruising present. No erythema or rash. Neurological: Mental Status: He is alert. {ASSESSMENT/PLAN: 1. Foot injury, left, initial encounter - ICD9: 959.7, ICD10: S99.922A (primary diagnosis) - XR FOOT GENERAL 3V AP/LAT/OBL LEFT IMPRESSION: Questionable nondisplaced fracture base of the 5th proximal phalanx. Clinical correlation with point tenderness and follow-up radiographs in 10-14 days can be obtained to exclude/confirm fracture. Other findings as described. Global Sales Director: BRIONNA Transcribe Date/Time: Jun 27 2024 12:10P Dictated by : FAUSOT QUIROGA, - patient placed in air cast walking boot - wear this while you are awake, may take off at night. - follow up with Dr. Marie (manager public) in one week for recheck. 2. Fall from stairs - ICD9: E880.9, ICD10: W10.9XXA - Discussed red flags and need for immediate medical evaluation if any occur. - Discussed supportive care treatment with rest and analgesia. - Discussed expected course of illness Jennifer Pagan APRN.EARLY CHILDHOOD ASSISTANT Management I performed an independent interpretation of the following:imaging Imaging: My interpretation is see plan Disposition The patient was discharged. Procedures [facility] 06-27-2024 History of Presen t illness Narrative Images from the original note were not included. [facility] Subjective Carlito Chatterjee is a 84 year old male. Patient presents with: Left foot injury: X5 days HPI Carlito Chatterjee is a 84 year old male who presents with left foot pain, swelling, and bruising. He was seen here on 06/23 and had left shoulder and left knee xrays. He rates foot pain /10 and described it as aching. He has bruising around toes 3-5. Denies ankle pain or injury. Review of Systems Constitutional: Negative for fever. Musculoskeletal: Positive for joint swelling. See HPI Skin: Positive for color change. Objective BP 106/68 Pulse 62 Resp 16 Wt 80.8 kg (178 lb 2.1 oz) SpO2 98% BMI 25.93 kg/m PAST MEDICAL HISTORY Diagnosis Date Arrhythmia Coronary artery disease H/O colonoscopy with polypectomy 04/26/2011 multiple adenomatous polyps - 2 yr surveillance recommended Hyperlipidemia Impaired glucose tolerance Kidney disease PMH - PAST MEDICAL HISTORY OF hep C - treated in 2016. lab confirms virus irradicated. 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 Aguilar COLONOSCOPY FLX DX W/COLLJ SPEC WHEN PFRMD 10/22/2016 Colonoscopy COLONOSCOPY SCREENING 12/23/2023 HERNIA REPAIR HX groin (right) PAST SURGICAL HISTORY OF left knee surgery PAST SURGICAL HISTORY OF 06/09/2000 heart cath PAST SURGICAL HISTORY OF 01/2014 new aorta ascending TONSILLECTOMY PRIMARY/SECONDARY <AGE 13 Tonsillectomy ALLERGIES Celebrex [Celecoxib] MEDICATIONS Vardenafil HCl 20 mg tablet TAKE 1 TABLET BY MOUTH DAILY NEEDED PRIOR TO SEX ramipril (ALTACE) 10 mg capsule Take 10 mg by mouth once daily. tamsulosin ER (FLOMAX) 0.4 mg cap Take 0.4 mg by mouth once daily. 3 or 4 time a week amLODIPine (NORVASC) 5 mg tablet Take 5 mg by mouth once daily. metoprolol succinate ER (TOPROL XL) 100 mg Take 100 mg by mouth once daily. rosuvastatin (CRESTOR) 5 mg tablet Take 10 mg by mouth once daily. aspirin 81 mg chewable tablet Take 81 mg by mouth once daily. 3 time a week clopidogrel (PLAVIX) 75 mg tablet Take 1 tablet by mouth once daily. FAMILY HISTORY Problem Relation Age of Onset Ischemic Heart Disease Father Ischemic Heart Disease Mother Ischemic Heart Disease Sister 71 Diabetes Brother Stroke Brother Social History Tobacco Use Smoking status: Every Day Types: Pipe Passive exposure: Past Smokeless tobacco: Never Tobacco comments: pipe for 50 years /quit -2016 started again with pipe Vaping Use Vaping status: Never Used Substance Use Topics Alcohol use: Not Currently Drug use: Never Physical Exam Vitals and nursing note reviewed. Constitutional: General: He is not in acute distress. Appearance: Normal appearance. He is not ill-appearing. Musculoskeletal: General: Swelling, tenderness and signs of injury present. No deformity. Left ankle: Normal. No swelling or ecchymosis. No tenderness. Normal range of motion. Normal pulse. Left Achilles Tendon: Normal. No tenderness or defects. Feet: Skin: General: Skin is warm and dry. Capillary Refill: Capillary refill takes less than 2 seconds. Findings: Bruising present. No erythema or rash. Neurological: Mental Status: He is alert. {ASSESSMENT/PLAN: 1. Foot injury, left, initial encounter - ICD9: 959.7, ICD10: S99.922A (primary diagnosis) - XR FOOT GENERAL 3V AP/LAT/OBL LEFT IMPRESSION: Questionable nondisplaced fracture base of the 5th proximal phalanx. Clinical correlation with point tenderness and follow-up radiographs in 10-14 days can be obtained to exclude/confirm fracture. Other findings as described. Global Sales Director: BRIONNA Transcribe Date/Time: Jun 27 2024 12:10P Dictated by : FAUSTO QUIROGA DO - patient placed in air cast walking boot - wear this while you are awake, may take off at night. - follow up with Dr. Marie (manager public) in one week for recheck. 2. Fall from stairs - ICD9: E880.9, ICD10: W10.9XXA - Discussed red flags and need for immediate medical evaluation if any occur. - Discussed supportive care treatment with rest and analgesia. - Discussed expected course of illness Jennifer Pagan APRN.EARLY CHILDHOOD ASSISTANT Management I performed an independent interpretation of the following:imaging Imaging: My interpretation is see plan Disposition The patient was discharged. Procedures documented in this encounter [facility] 06-23-2024 History of Presen t illness Narrative Radiology Service Progress Note PATIENT NAME: Carlito Chatterjee DATE OF SERVICE: June 23, 2024 TIME: 3:41 PM PATIENT IDENTITY VERIFICATION COMPLETED USING TWO (2) IDENTIFIERS: Name and Date of confirmed by patient verbally. FALL SCREENING: Has the patient had 2 falls in the last year or 1 fall with injury or currently using an Ambulatory Assistive Device (Walker, Cane, Wheelchair, Crutches, etc.)? No PATIENT GENDER DATA: Assigned male at PATIENT RELEVANT IMPLANT DATA REVIEWED: Not Applicable PATIENT PRESENTS WITH AN IMPLANTABLE OR ATTACHED LEGAL NURSE CONSULTANT: No RADIOLOGY DEPARTMENT: General X-ray: Exam(s) Completed: Lower Extremity X-Ray(s): Knee, AP / Lat / Tunne / Merchant Left Upper Extremity X-Ray(s): Shoulder, AP / TRUE AP / Y VIEW left PERIPHERAL IV DATA: Not applicable SIGNED BY: Darius Royal June 23, 2024 3:41 PM documented in this encounter [facility] 06-23-2024 Note HNO ID: [id number] Author: CHALO COVINGTON Tech Service: ? Author Type: Technologist Type: Progress Notes Filed: 06/23/2024 16:06 Note Text: Radiology Service Progress Note PATIENT NAME: Carlito Chatterjee DATE OF SERVICE: June 23, 2024 TIME: 3:41 PM PATIENT IDENTITY VERIFICATION COMPLETED USING TWO (2) IDENTIFIERS: Name and Date of confirmed by patient verbally. FALL SCREENING: Has the patient had 2 falls in the last year or 1 fall with injury or currently using an Ambulatory Assistive Device (Walker, Cane, Wheelchair, Crutches, etc.)? No PATIENT GENDER DATA: Assigned male at PATIENT RELEVANT IMPLANT DATA REVIEWED: Not Applicable PATIENT PRESENTS WITH AN IMPLANTABLE OR ATTACHED LEGAL NURSE CONSULTANT: No RADIOLOGY DEPARTMENT: General X-ray: Exam(s) Completed: Lower Extremity X-Ray(s): Knee, AP / Lat / Tunne / Merchant Left Upper Extremity X-Ray(s): Shoulder, AP / TRUE AP / Y VIEW left PERIPHERAL IV DATA: Not applicable SIGNED BY: Darius Royal June 23, 2024 3:41 PM [facility] 06-23-2024 Note HNO ID: [id number] Author: SARA MCDANIEL APRN.EARLY CHILDHOOD ASSISTANT Service: ? Author Type: Nurse Practitioner Type: Progress Notes Filed: 06/23/2024 16:24 Note Text: [facility] Subjective Carlito Chatterjee is a 84 year old male. Patient presents with: Shoulder Injury: left shoulder and leg pain x 1 day, fell down stairs and into wall Patient came in with complaints of left shoulder and knee pain. Patient says he was walking down his stairs and missed the bottom 3 stairs and fell into the wall. Patient says he did hit his head and is slightly but did not receive any pain or headaches from it nor blurred vision. Patient is not concerned for head injury does not want to go to the ER for this. Patient says he can hardly lift his left arm. Patient says the knee is only slightly uncomfortable but has a history of a knee replacement. The history is provided by the patient. No school speech language pathologist was used. Shoulder Injury Review of Systems Constitutional: Negative. HENT: Negative. Objective BP 132/60 Pulse 60 Temp (!) 15.6 ?C (60 ?F) Resp 16 Wt 81.2 kg (179 lb 0.2 oz) SpO2 97% BMI 26.06 kg/m? Physical Exam Constitutional: Appearance: Normal appearance. Pulmonary: Effort: Pulmonary effort is normal. Skin: Comments: Patient has pain in the areas marked above. Patient's arm is only able to lift up maybe a 20 degree angle. Patient's knee has complete range of motion just slightly swollen. Unable to perform any other tasks with the arm due to patient's pain. Neurological: Mental Status: He is alert. PAST MEDICAL HISTORY Diagnosis Date Arrhythmia Coronary artery disease H/O colonoscopy with polypectomy 04/26/2011 multiple adenomatous polyps - 2 yr surveillance recommended Hyperlipidemia Impaired glucose tolerance Kidney disease PMH - PAST MEDICAL HISTORY OF hep C - treated in 2016. lab confirms virus irradicated. 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 Aguilar COLONOSCOPY FLX DX W/COLLJ SPEC WHEN PFRMD 10/22/2016 Colonoscopy COLONOSCOPY SCREENING 12/23/2023 HERNIA REPAIR HX groin (right) PAST SURGICAL HISTORY OF left knee surgery PAST SURGICAL HISTORY OF 06/09/2000 heart cath PAST SURGICAL HISTORY OF 01/2014 new aorta ascending TONSILLECTOMY PRIMARY/SECONDARY Tonsillectomy ALLERGIES Celebrex [Celecoxib] MEDICATIONS Vardenafil HCl 20 mg tablet TAKE 1 TABLET BY MOUTH DAILY NEEDED PRIOR TO SEX ramipril (ALTACE) 10 mg capsule Take 10 mg by mouth once daily. tamsulosin ER (FLOMAX) 0.4 mg cap Take 0.4 mg by mouth once daily. 3 or 4 time a week amLODIPine (NORVASC) 5 mg tablet Take 5 mg by mouth once daily. metoprolol succinate ER (TOPROL XL) 100 mg Take 100 mg by mouth once daily. rosuvastatin (CRESTOR) 5 mg tablet Take 10 mg by mouth once daily. aspirin 81 mg chewable tablet Take 81 mg by mouth once daily. 3 time a week clopidogrel (PLAVIX) 75 mg tablet Take 1 tablet by mouth once daily. FAMILY HISTORY Problem Relation Age of Onset Ischemic Heart Disease Father Ischemic Heart Disease Mother Ischemic Heart Disease Sister 71 Diabetes Brother Stroke Brother Social History Tobacco Use Smoking status: Every Day Types: Pipe Passive exposure: Past Smokeless tobacco: Never Tobacco comments: pipe for 50 years /quit started again with pipe Vaping Use Vaping status: Never Used Substance Use Topics Alcohol use: Not Currently Drug use: Never {ASSESSMENT/PLAN: 1. Pain - ICD9: 780.96, ICD10: R52 - XR SHOULDER GENERAL 3V OR MORE AP/TRUE AP/OTHER LEFT - XR KNEE GENERAL 4V AP BOTH/PA BOTH/LAT/MERC LEFT Negative for both, small joint fluid in right knee Patient was instructed to rest ice and follow-up with orthopedics. He will make his appointment before he leaves here today. Patient agreeable to care plan. - CONSULT PANEL TO ORTHOPAEDICS Sara Mcdaniel APRN.EARLY CHILDHOOD ASSISTANT MDM Procedures [facility] 06-23-2024 History of Presen t illness Narrative Images from the original note were not included. [facility] Subjective Carlito Chatterjee is a 84 year old male. Patient presents with: Shoulder Injury: left shoulder and leg pain x 1 day, fell down stairs and into wall Patient came in with complaints of left shoulder and knee pain. Patient says he was walking down his stairs and missed the bottom 3 stairs and fell into the wall. Patient says he did hit his head and is slightly but did not receive any pain or headaches from it nor blurred vision. Patient is not concerned for head injury does not want to go to the ER for this. Patient says he can hardly lift his left arm. Patient says the knee is only slightly uncomfortable but has a history of a knee replacement. The history is provided by the patient. No school speech language pathologist was used. Shoulder Injury Review of Systems Constitutional: Negative. HENT: Negative. Objective BP 132/60 Pulse 60 Temp (!) 15.6 C (60 F) Resp 16 Wt 81.2 kg (179 lb 0.2 oz) SpO2 97% BMI 26.06 kg/m Physical Exam Constitutional: Appearance: Normal appearance. Pulmonary: Effort: Pulmonary effort is normal. Skin: Comments: Patient has pain in the areas marked above. Patient's arm is only able to lift up maybe a 20 degree angle. Patient's knee has complete range of motion just slightly swollen. Unable to perform any other tasks with the arm due to patient's pain. Neurological: Mental Status: He is alert. PAST MEDICAL HISTORY Diagnosis Date Arrhythmia Coronary artery disease H/O colonoscopy with polypectomy 04/26/2011 multiple adenomatous polyps - 2 yr surveillance recommended Hyperlipidemia Impaired glucose tolerance Kidney disease PMH - PAST MEDICAL HISTORY OF hep C - treated in 2016. lab confirms virus irradicated. 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 Aguilar COLONOSCOPY FLX DX W/COLLJ SPEC WHEN PFRMD 10/22/2016 Colonoscopy COLONOSCOPY SCREENING 12/23/2023 HERNIA REPAIR HX groin (right) PAST SURGICAL HISTORY OF left knee surgery PAST SURGICAL HISTORY OF 06/09/2000 heart cath PAST SURGICAL HISTORY OF 01/2014 new aorta ascending TONSILLECTOMY PRIMARY/SECONDARY <AGE 13 Tonsillectomy ALLERGIES Celebrex [Celecoxib] MEDICATIONS Vardenafil HCl 20 mg tablet TAKE 1 TABLET BY MOUTH DAILY NEEDED PRIOR TO SEX ramipril (ALTACE) 10 mg capsule Take 10 mg by mouth once daily. tamsulosin ER (FLOMAX) 0.4 mg cap Take 0.4 mg by mouth once daily. 3 or 4 time a week amLODIPine (NORVASC) 5 mg tablet Take 5 mg by mouth once daily. metoprolol succinate ER (TOPROL XL) 100 mg Take 100 mg by mouth once daily. rosuvastatin (CRESTOR) 5 mg tablet Take 10 mg by mouth once daily. aspirin 81 mg chewable tablet Take 81 mg by mouth once daily. 3 time a week clopidogrel (PLAVIX) 75 mg tablet Take 1 tablet by mouth once daily. FAMILY HISTORY Problem Relation Age of Onset Ischemic Heart Disease Father Ischemic Heart Disease Mother Ischemic Heart Disease Sister 71 Diabetes Brother Stroke Brother Social History Tobacco Use Smoking status: Every Day Types: Pipe Passive exposure: Past Smokeless tobacco: Never Tobacco comments: pipe for 50 years /quit started again with pipe Vaping Use Vaping status: Never Used Substance Use Topics Alcohol use: Not Currently Drug use: Never {ASSESSMENT/PLAN: 1. Pain - ICD9: 780.96, ICD10: R52 - XR SHOULDER GENERAL 3V OR MORE AP/TRUE AP/OTHER LEFT - XR KNEE GENERAL 4V AP BOTH/PA BOTH/LAT/MERC LEFT Negative for both, small joint fluid in right knee Patient was instructed to rest ice and follow-up with orthopedics. He will make his appointment before he leaves here today. Patient agreeable to care plan. - CONSULT PANEL TO ORTHOPAEDICS Sara Mcdaniel APRN.CNP MDM Procedures documented in this encounter [facility] 06-22-2024 Nurse Note Attempted to reach the patient at the contact number that they provided [phone] (home) . Unable to speak with patient so without identifying the patient the following information was left on their voice mail: Date of procedure, location and report time Prep instructions A message was left informing the patient/patient retail service representative they must have a responsible adult accompany them to their procedure; and remain in the endoscopy area until they are discharged. Failure to have a responsible adult accompany the patient to their procedure appointment prevents the use of sedation or anesthesia for their procedure; and can result in cancellation of the procedure NPO instructions were reviewed. Clear liquids the day before the procedure, stop all liquids 4 hours before the procedure Instructions to contact their primary care provider regarding their medications and which medications to stop in preparation for their procedure Instructions to completely read and follow the written instructions that they recieved regarding their procedure. Number to call with questions or concerns [phone] Number to call to cancel their procedure [phone] Braxton Calixto RN [facility] 06-22-2024 Nurse Note Attempted to reach the patient at the contact number that they provided [phone] (home) . Unable to speak with patient so without identifying the patient the following information was left on their voice mail: Date of procedure, location and report time Prep instructions A message was left informing the patient/patient retail service representative they must have a responsible adult accompany them to their procedure; and remain in the endoscopy area until they are discharged. Failure to have a responsible adult accompany the patient to their procedure appointment prevents the use of sedation or anesthesia for their procedure; and can result in cancellation of the procedure NPO instructions were reviewed. Clear liquids the day before the procedure, stop all liquids 4 hours before the procedure Instructions to contact their primary care provider regarding their medications and which medications to stop in preparation for their procedure Instructions to completely read and follow the written instructions that they recieved regarding their procedure. Number to call with questions or concerns [phone] Number to call to cancel their procedure [phone] Braxton Calixto RN documented in this encounter [facility] 06-01-2024 Telephone encounter Note Patient's , Angelita, called to discuss when to hold medications for upcoming colonoscopy. Angelita can be reached at [phone]. [facility] 06-01-2024 Miscellaneous Notes Patient's , Angelita, called to discuss when to hold medications for upcoming colonoscopy. Angelita can be reached at [phone]. documented in this encounter [facility] 04-10-2024 Instructions Sondra Curry APRN.CNP - 04/10/2024 11:36 AM EST ASSESSMENT/PLAN: 1. Sinobronchitis - ICD9: 473.9, 490, ICD10: J32.9, J40 (primary diagnosis) - Will begin treatment with as per antibiotic as written, see orders - Supportive care with plenty of fluids, rest, and analgesia prn. - Follow up in 3-5 days if symptoms persist or worsen. - DOXYCYCLINE MONOHYDRATE 100 MG TABLET - PREDNISONE 20 MG TABLET 2. Acute cough - ICD9: 786.2, ICD10: R05.1 - XR CHEST 2V FRONTAL/LAT documented in this encounter [facility] 04-10-2024 Note HNO ID: [id number] Author: CHALO COVINGTON Tech Service: ? Author Type: Technologist Type: Progress Notes Filed: 04/10/2024 11:01 Note Text: Radiology Service Progress Note PATIENT NAME: Carlito Chatterjee DATE OF SERVICE: April 10, 2024 TIME: 11:00 AM PATIENT IDENTITY VERIFICATION COMPLETED USING TWO (2) IDENTIFIERS: Name and Date of confirmed by patient verbally. FALL SCREENING: Has the patient had 2 falls in the last year or 1 fall with injury or currently using an Ambulatory Assistive Device (Walker, Cane, Wheelchair, Crutches, etc.)? No PATIENT GENDER DATA: Assigned male at PATIENT RELEVANT IMPLANT DATA REVIEWED: Not Applicable PATIENT PRESENTS WITH AN IMPLANTABLE OR ATTACHED LEGAL NURSE CONSULTANT: No RADIOLOGY DEPARTMENT: General X-ray: Exam(s) Completed: Chest X-Ray PERIPHERAL IV DATA: Not applicable SIGNED BY: Darius Royal April 10, 2024 11:00 AM [facility] 04-10-2024 Note HNO ID: [id number] Author: SONDRA CURRY APRN.EARLY CHILDHOOD ASSISTANT Service: ? Author Type: Nurse Practitioner Type: Progress Notes Filed: 04/10/2024 12:36 Note Text: Subjective HPI HPI Carlito Chatterjee is a 84 year old male who presents today for CC of cough, congestion, fever. This started 1 week ago. Has tried otc medication for relief. Symptoms are worsened by nothing. Risk factors smokes pipe/long time. PAST MEDICAL HISTORY Diagnosis Date Arrhythmia Coronary artery disease H/O colonoscopy with polypectomy 04/26/2011 multiple adenomatous polyps - 2 yr surveillance recommended Hyperlipidemia Impaired glucose tolerance Kidney disease PMH - PAST MEDICAL HISTORY OF hep C - treated in 2015. lab confirms virus irradicated. 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 Aguilar COLONOSCOPY FLX DX W/COLLJ SPEC WHEN PFRMD 10/22/2016 Colonoscopy COLONOSCOPY SCREENING 12/23/2023 HERNIA REPAIR HX groin (right) PAST SURGICAL HISTORY OF left knee surgery PAST SURGICAL HISTORY OF 06/09/2000 heart cath PAST SURGICAL HISTORY OF 01/2014 new aorta ascending TONSILLECTOMY PRIMARY/SECONDARY Tonsillectomy ALLERGIES Celebrex [Celecoxib] MEDICATIONS ramipril (ALTACE) 10 mg capsule Take 10 mg by mouth once daily. tamsulosin ER (FLOMAX) 0.4 mg cap Take 0.4 mg by mouth once daily. 3 or 4 time a week amLODIPine (NORVASC) 5 mg tablet Take 5 mg by mouth once daily. metoprolol succinate ER (TOPROL XL) 100 mg Take 100 mg by mouth once daily. rosuvastatin (CRESTOR) 5 mg tablet Take 10 mg by mouth once daily. aspirin 81 mg chewable tablet Take 81 mg by mouth once daily. 3 time a week clopidogrel (PLAVIX) 75 mg tablet Take 1 tablet by mouth once daily. FAMILY HISTORY Problem Relation Age of Onset Ischemic Heart Disease Father Ischemic Heart Disease Mother Ischemic Heart Disease Sister 71 Diabetes Brother Stroke Brother Social History Tobacco Use Smoking status: Every Day Types: Pipe Passive exposure: Past Smokeless tobacco: Never Tobacco comments: pipe for 50 years /quit -2016 started again with pipe Vaping Use Vaping status: Never Used Substance Use Topics Alcohol use: Not Currently Drug use: Never Review of Systems Constitutional: Positive for fever. HENT: Positive for congestion and sore throat. Negative for ear pain and nosebleeds. Respiratory: Positive for cough and sputum production. Negative for shortness of breath and wheezing. Musculoskeletal: Negative for neck pain. Skin: Negative for itching and rash. Objective Blood pressure 106/56, pulse 78, temperature 36.8 ?C (98.3 ?F), temperature source Left Tympanic, resp. rate 16, weight 81.2 kg (179 lb 0.2 oz), SpO2 97%. Latest Ref Rng 07/03/2023 Creatinine (POCT) 0.7 - 1.4 mg/dL 1.40 eGFR (POCT) mL/min/1.73 m2 50 Physical Exam Constitutional: General: He is not in acute distress. Appearance: He is not toxic-appearing or diaphoretic. HENT: Head: Normocephalic and atraumatic. Cardiovascular: Rate and Rhythm: Normal rate and regular rhythm. Heart sounds: Normal heart sounds, S1 normal and S2 normal. Pulmonary: Effort: Pulmonary effort is normal. Breath sounds: Normal breath sounds. Lymphadenopathy: Cervical: No cervical adenopathy. Right cervical: No superficial cervical adenopathy. Left cervical: No superficial cervical adenopathy. Neurological: Mental Status: He is alert and oriented to person, place, and time. Gait: Gait is intact. ASSESSMENT/PLAN: 1. Sinobronchitis - ICD9: 473.9, 490, ICD10: J32.9, J40 (primary diagnosis) - Will begin treatment with as per antibiotic as written, see orders - Supportive care with plenty of fluids, rest, and analgesia prn. - Follow up in 3-5 days if symptoms persist or worsen. - DOXYCYCLINE MONOHYDRATE 100 MG TABLET - PREDNISONE 20 MG TABLET 2. Acute cough - ICD9: 786.2, ICD10: R05.1 - XR CHEST 2V FRONTAL/LAT IMPRESSION: No acute radiographic abnormality. Dictated by : MD Sondra MUSE, [employer] [facility] 04-10-2024 History of Presen t illness Narrative Subjective HPI HPI Carlito Chatterjee is a 84 year old male who presents today for CC of cough, congestion, fever. This started 1 week ago. Has tried otc medication for relief. Symptoms are worsened by nothing. Risk factors smokes pipe/long time. PAST MEDICAL HISTORY Diagnosis Date Arrhythmia Coronary artery disease H/O colonoscopy with polypectomy 04/26/2011 multiple adenomatous polyps - 2 yr surveillance recommended Hyperlipidemia Impaired glucose tolerance Kidney disease PMH - PAST MEDICAL HISTORY OF hep C - treated in 2015. lab confirms virus irradicated. 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 Aguilar COLONOSCOPY FLX DX W/COLLJ SPEC WHEN PFRMD 10/22/2016 Colonoscopy COLONOSCOPY SCREENING 12/23/2023 HERNIA REPAIR HX groin (right) PAST SURGICAL HISTORY OF left knee surgery PAST SURGICAL HISTORY OF 06/09/2000 heart cath PAST SURGICAL HISTORY OF 01/2014 new aorta ascending TONSILLECTOMY PRIMARY/SECONDARY <AGE 13 Tonsillectomy ALLERGIES Celebrex [Celecoxib] MEDICATIONS ramipril (ALTACE) 10 mg capsule Take 10 mg by mouth once daily. tamsulosin ER (FLOMAX) 0.4 mg cap Take 0.4 mg by mouth once daily. 3 or 4 time a week amLODIPine (NORVASC) 5 mg tablet Take 5 mg by mouth once daily. metoprolol succinate ER (TOPROL XL) 100 mg Take 100 mg by mouth once daily. rosuvastatin (CRESTOR) 5 mg tablet Take 10 mg by mouth once daily. aspirin 81 mg chewable tablet Take 81 mg by mouth once daily. 3 time a week clopidogrel (PLAVIX) 75 mg tablet Take 1 tablet by mouth once daily. FAMILY HISTORY Problem Relation Age of Onset Ischemic Heart Disease Father Ischemic Heart Disease Mother Ischemic Heart Disease Sister 71 Diabetes Brother Stroke Brother Social History Tobacco Use Smoking status: Every Day Types: Pipe Passive exposure: Past Smokeless tobacco: Never Tobacco comments: pipe for 50 years /quit started again with pipe Vaping Use Vaping status: Never Used Substance Use Topics Alcohol use: Not Currently Drug use: Never Review of Systems Constitutional: Positive for fever. HENT: Positive for congestion and sore throat. Negative for ear pain and nosebleeds. Respiratory: Positive for cough and sputum production. Negative for shortness of breath and wheezing. Musculoskeletal: Negative for neck pain. Skin: Negative for itching and rash. Objective Blood pressure 106/56, pulse 78, temperature 36.8 C (98.3 F), temperature source Left Tympanic, resp. rate 16, weight 81.2 kg (179 lb 0.2 oz), SpO2 97%. Latest Ref Rng 07/03/2023 Creatinine (POCT) 0.7 - 1.4 mg/dL 1.40 eGFR (POCT) mL/min/1.73 m2 50 Physical Exam Constitutional: General: He is not in acute distress. Appearance: He is not toxic-appearing or diaphoretic. HENT: Head: Normocephalic and atraumatic. Cardiovascular: Rate and Rhythm: Normal rate and regular rhythm. Heart sounds: Normal heart sounds, S1 normal and S2 normal. Pulmonary: Effort: Pulmonary effort is normal. Breath sounds: Normal breath sounds. Lymphadenopathy: Cervical: No cervical adenopathy. Right cervical: No superficial cervical adenopathy. Left cervical: No superficial cervical adenopathy. Neurological: Mental Status: He is alert and oriented to person, place, and time. Gait: Gait is intact. ASSESSMENT/PLAN: 1. Sinobronchitis - ICD9: 473.9, 490, ICD10: J32.9, J40 (primary diagnosis) - Will begin treatment with as per antibiotic as written, see orders - Supportive care with plenty of fluids, rest, and analgesia prn. - Follow up in 3-5 days if symptoms persist or worsen. - DOXYCYCLINE MONOHYDRATE 100 MG TABLET - PREDNISONE 20 MG TABLET 2. Acute cough - ICD9: 786.2, ICD10: R05.1 - XR CHEST 2V FRONTAL/LAT IMPRESSION: No acute radiographic abnormality. Dictated by : MD Sondra MUSE APRN.EARLY CHILDHOOD ASSISTANT documented in this encounter [facility] 02-20-2024 Telephone encounter Note Pt contacted and give results below. Pt had no further questions.Caroline Lacy, RN [facility] 02-20-2024 Miscellaneous Notes Pt contacted and give results below. Pt had no further questions.Caroline Lacy RN benign polyp Angelita, patient , called. Verified name and date of of patient. Patient had procedure 12/23/2023 and was referred to see Dr. Archuleta 01/22/2024 but does not recall getting results of colonscopy. Patient has procedure scheduled in June 2024 due to plans to be out of state for a few months. Please review and advise. Kaye Marie LPN documented in this encounter [facility] 02-20-2024 Telephone encounter Note benign polyp [facility] 02-20-2024 Telephone encounter Note Angelita, patient , called. Verified name and date of of patient. Patient had procedure 12/23/2023 and was referred to see Dr. Archuleta 01/22/2024 but does not recall getting results of colonscopy. Patient has procedure scheduled in June 2024 due to plans to be out of state for a few months. Please review and advise. Kaye Marie LPN [facility] 02-06-2024 Instructions Catalina Olmstead RN - 02/06/2024 2:31 PM EST COLONOSCOPY BOWEL PREPARATION INSTRUCTIONS GOLYTELY/NULYTELY/TRILYTE/COLYTE Your doctor has scheduled you for a colonoscopy. To have a successful colonoscopy, you must have a clean colon, that is empty. A clean colon allows your doctor to see the entire colon & diagnose issues like polyps or cancer. For doctors, a clean colon is like driving on a [place]ablo day; a dirty colon like driving in a storm. It is very important that you follow these instructions exactly, or your colonoscopy might not be as effective, could be canceled, and you may need to do the bowel prep and the colonoscopy again. TRANSPORTATION REQUIREMENTS You are receiving IV sedation. For your safety, a responsible adult escort must accompany you to and from your procedure: Your adult escort MUST be present with you at check-in for your colonoscopy. Your adult escort MUST remain in the endoscopy area until you are discharged. Your adult escort MUST transport you home once you are discharged. You are NOT allowed to operate any form of transportation (i.e. drive a car, bicycle, etc.) or leave the Endoscopy Center ALONE. It is not safe to do so. If you cannot meet these requirements, your procedure will be canceled. MEDICATION REQUIREMENTS For your safety, certain medications will need to be stopped or adjusted before you can have your procedure: BLOOD THINNERS: If you take blood thinners, such as Coumadin (warfarin), Plavix (clopidogrel), Ticlid (ticlopidine hydrochloride), Agrylin (anagrelide), Xarelto (Rivaroxaban), Pradaxa (Dabigatran), Eliquis (Apixaban), or Effient (Prasugrel), contact the physician who is prescribing these medications at least 2 weeks prior to your procedure to discuss any necessary adjustments. DIABETES: If you take medications for diabetes, your dosage may need to be adjusted. If you are being treated for diabetes with insulin, diabetic pills, or other injectable medications do not take your REGULAR dose after midnight on the day of your procedure. If you are taking any other types of insulin such as Lantus, Humalog, NPH (long-acting insulin), or 70/30 insulin, take half your normal dose the day before your procedure. DIABETES/WEIGHT MANAGEMENT: If you take medications for weight-loss, your dosage may need to be adjusted Contact the doctor who prescribes this medication for further instructions. If you take medications for weight-loss like semaglutide (Ozempic, Wegovy, Rybelsus), dulaglutide (Trulicity), liraglutide (Victoza, Saxenda), exenatide (Byetta, Bydureon), or lixisenatide (Adylyxin), stop your medication 1 week prior to your procedure. If you take medications like canagliflozin (Invokana), dapagliflozin (Farxiga, Forxiga), empagliflozin (Jardiance), stop your medication 3 days prior to your procedure. If you take ertugliflozin (Steglatro) stop your medication 4 days prior to your procedure. IRON: If you take iron pills, STOP them 1 week BEFORE your procedure, may resume after. OTHER MEDS: May take all other medications (including aspirin, antibiotics, water pills / diuretics like Lasix or Metolozone, blood pressure meds, etc.) at their usual scheduled time with a sip of water. DIET REQUIREMENTS The day before your colonoscopy, you may have a clear liquid diet (see below). The day of your colonoscopy, you may continue a clear liquid diet until 3 hours before your colonoscopy. Within 3 hours of your colonoscopy, take only any medications (as above) with a sip of water. Clear Liquid Diet Broth (chicken, beef or vegetable broth or bullion. Just the broth, no solids). Water Coffee or Tea (NO milk or creamer), but sugar and sugar substitutes are allowed. Clear liquids including clear, yellow, green, blue (NO red, NO orange, NO purple) Sodas / soft drinks Gatorade or other sports drinks Phu-Aid or flavored drinks Plain Jell-O or other gelatins Fruit juice (strained; no-pulp) Popsicles or hard candy BOWEL PREPARATION (GOLYTELY/NULYTELY/TRILYTE/COLYT E) Split Dosing Bowel Prep: This means drinking your bowel prep in two doses. Split dosing helps clean your colon better and makes it less likely that your procedure will be canceled. Fill your prescription for Golytely/Nulytely/Trilyte/Colyte : The afternoon before your colonoscopy, mix the solution and refrigerate. You may add the flavor pack (if present) that came with the bowel preparation. Do not add ice, sugar, or other flavorings to the solution. You will drink your prep in two doses, by several hours. On the evening before your colonoscopy: 1. 6 PM drink the first half of the bowel preparation solution. Drink one 8-ounce glass every 15 minutes. 2. Six hours before your colonoscopy, drink the second half of the solution. Drink one 8-ounce glass every 15 minutes. 3. You may continue a clear liquid diet until 3 hours before your colonoscopy. Bowel prep can work differently from person to person. Some people's bowels move slowly and they may need different instructions. Please see your doctor in office or virtually for personalized bowel prep instructions if you have: Medical condition that needs special accommodations Had a poor bowel prep results or failed bowel prep attempts in the past. Had difficulty with anesthesia during the procedure. FREQUENTLY ASKED QUESTIONS Q: What if I suffer from constipation? A: Recommend taking extra laxatives to resolve your constipation days prior to entering the bowel prep day. Q: What if have had prior poor preps results in past? A: Contact your physician as you will likely need additional bowel prep instructions. Q: What if I have motility issues like Parkinson's, MS (multiple sclerosis), wheelchair dependent, etc.? or on medications that slow bowel emptying (narcotics, gabapentin, anticholinergic medications etc.) A: Contact your physician as you will likely need extra time and additional laxatives to complete your bowel prep. Q: What if I cannot drink large volume of liquid? A: Start your prep 2-3 hours earlier to allow yourself more time to complete the entire prep. Q: What if I can't finish my bowel prep? A: If you cannot finish your entire bowel prep, it is likely that your colonoscopy will need to be rescheduled due to poor prep quality. Q: What if I had bariatric surgery? Do I still have to complete the entire prep? A: Yes, gastric bypass surgery involves the stomach & small bowel. You may need to drink smaller amounts, slower (may need more time to complete your bowel prep). Gastric bypass does not alter the length of your colon so you will need to complete the entire bowel prep, it may just take longer time to complete it. Q: What if I am on dialysis? A: Please consult your assistant to the vice president prior to scheduling to get instructions pertinent to you. In general, dialysis patients take the Golytely bowel prep and have the procedure same day of their dialysis (colonoscopy in AM, dialysis in PM). Q: How do I know if something is considered as clear liquid diet? A: If you can pour it in a glass and you can see through it, it is considered clear liquid Q: Can I eat nuts, seeds, beans, popcorn, dried fruits, vegetables & fruits that have skin peel? A: No, you will need to not eat these items starting 3 days prior to procedure. Q: Can I take Uber/Lyft/taxi/bus home? A: An adult MUST be present with you at check-in for your colonoscopy and remain in the endoscopy area until you are discharged. You can take Uber home only if this adult escort is with you at check in, remain in the endoscopy area until you are discharged, and takes the Uber with you to home. Q: Can I sleep it off here and drive myself home? A: No, you must have an adult with you at time of procedure check in, remain in the endoscopy center during your procedure, and drive you home. You cannot drive a vehicle after your procedure the rest of the day. documented in this encounter [facility] 01-28-2024 Instructions Catalina Olmstead RN - 01/28/2024 10:29 AM EST COLONOSCOPY BOWEL PREPARATION INSTRUCTIONS GOLYTELY/NULYTELY/TRILYTE/COLYTE Your doctor has scheduled you for a colonoscopy. To have a successful colonoscopy, you must have a clean colon, that is empty. A clean colon allows your doctor to see the entire colon & diagnose issues like polyps or cancer. For doctors, a clean colon is like driving on a [place] day; a dirty colon like driving in a storm. It is very important that you follow these instructions exactly, or your colonoscopy might not be as effective, could be canceled, and you may need to do the bowel prep and the colonoscopy again. TRANSPORTATION REQUIREMENTS You are receiving IV sedation. For your safety, a responsible adult escort must accompany you to and from your procedure: Your adult escort MUST be present with you at check-in for your colonoscopy. Your adult escort MUST remain in the endoscopy area until you are discharged. Your adult escort MUST transport you home once you are discharged. You are NOT allowed to operate any form of transportation (i.e. drive a car, bicycle, etc.) or leave the Endoscopy Center ALONE. It is not safe to do so. If you cannot meet these requirements, your procedure will be canceled. MEDICATION REQUIREMENTS For your safety, certain medications will need to be stopped or adjusted before you can have your procedure: BLOOD THINNERS: If you take blood thinners, such as Coumadin (warfarin), Plavix (clopidogrel), Ticlid (ticlopidine hydrochloride), Agrylin (anagrelide), Xarelto (Rivaroxaban), Pradaxa (Dabigatran), Eliquis (Apixaban), or Effient (Prasugrel), contact the physician who is prescribing these medications at least 2 weeks prior to your procedure to discuss any necessary adjustments. DIABETES: If you take medications for diabetes, your dosage may need to be adjusted. If you are being treated for diabetes with insulin, diabetic pills, or other injectable medications do not take your REGULAR dose after midnight on the day of your procedure. If you are taking any other types of insulin such as Lantus, Humalog, NPH (long-acting insulin), or 70/30 insulin, take half your normal dose the day before your procedure. DIABETES/WEIGHT MANAGEMENT: If you take medications for weight-loss, your dosage may need to be adjusted Contact the doctor who prescribes this medication for further instructions. If you take medications for weight-loss like semaglutide (Ozempic, Wegovy, Rybelsus), dulaglutide (Trulicity), liraglutide (Victoza, Saxenda), exenatide (Byetta, Bydureon), or lixisenatide (Adylyxin), stop your medication 1 week prior to your procedure. If you take medications like canagliflozin (Invokana), dapagliflozin (Farxiga, Forxiga), empagliflozin (Jardiance), stop your medication 3 days prior to your procedure. If you take ertugliflozin (Steglatro) stop your medication 4 days prior to your procedure. IRON: If you take iron pills, STOP them 1 week BEFORE your procedure, may resume after. OTHER MEDS: May take all other medications (including aspirin, antibiotics, water pills / diuretics like Lasix or Metolozone, blood pressure meds, etc.) at their usual scheduled time with a sip of water. DIET REQUIREMENTS The day before your colonoscopy, you may have a clear liquid diet (see below). The day of your colonoscopy, you may continue a clear liquid diet until 3 hours before your colonoscopy. Within 3 hours of your colonoscopy, take only any medications (as above) with a sip of water. Clear Liquid Diet Broth (chicken, beef or vegetable broth or bullion. Just the broth, no solids). Water Coffee or Tea (NO milk or creamer), but sugar and sugar substitutes are allowed. Clear liquids including clear, yellow, green, blue (NO red, NO orange, NO purple) Sodas / soft drinks Gatorade or other sports drinks Phu-Aid or flavored drinks Plain Jell-O or other gelatins Fruit juice (strained; no-pulp) Popsicles or hard candy BOWEL PREPARATION (GOLYTELY/NULYTELY/TRILYTE/COLYT E) Split Dosing Bowel Prep: This means drinking your bowel prep in two doses. Split dosing helps clean your colon better and makes it less likely that your procedure will be canceled. Fill your prescription for Golytely/Nulytely/Trilyte/Colyte : The afternoon before your colonoscopy, mix the solution and refrigerate. You may add the flavor pack (if present) that came with the bowel preparation. Do not add ice, sugar, or other flavorings to the solution. You will drink your prep in two doses, by several hours. On the evening before your colonoscopy: 1. 6 PM drink the first half of the bowel preparation solution. Drink one 8-ounce glass every 15 minutes. 2. Six hours before your colonoscopy, drink the second half of the solution. Drink one 8-ounce glass every 15 minutes. 3. You may continue a clear liquid diet until 3 hours before your colonoscopy. Bowel prep can work differently from person to person. Some people's bowels move slowly and they may need different instructions. Please see your doctor in office or virtually for personalized bowel prep instructions if you have: Medical condition that needs special accommodations Had a poor bowel prep results or failed bowel prep attempts in the past. Had difficulty with anesthesia during the procedure. FREQUENTLY ASKED QUESTIONS Q: What if I suffer from constipation? A: Recommend taking extra laxatives to resolve your constipation days prior to entering the bowel prep day. Q: What if have had prior poor preps results in past? A: Contact your physician as you will likely need additional bowel prep instructions. Q: What if I have motility issues like Parkinson's, MS (multiple sclerosis), wheelchair dependent, etc.? or on medications that slow bowel emptying (narcotics, gabapentin, anticholinergic medications etc.) A: Contact your physician as you will likely need extra time and additional laxatives to complete your bowel prep. Q: What if I cannot drink large volume of liquid? A: Start your prep 2-3 hours earlier to allow yourself more time to complete the entire prep. Q: What if I can't finish my bowel prep? A: If you cannot finish your entire bowel prep, it is likely that your colonoscopy will need to be rescheduled due to poor prep quality. Q: What if I had bariatric surgery? Do I still have to complete the entire prep? A: Yes, gastric bypass surgery involves the stomach & small bowel. You may need to drink smaller amounts, slower (may need more time to complete your bowel prep). Gastric bypass does not alter the length of your colon so you will need to complete the entire bowel prep, it may just take longer time to complete it. Q: What if I am on dialysis? A: Please consult your assistant to the vice president prior to scheduling to get instructions pertinent to you. In general, dialysis patients take the [employer] bowel prep and have the procedure same day of their dialysis (colonoscopy in AM, dialysis in PM). Q: How do I know if something is considered as clear liquid diet? A: If you can pour it in a glass and you can see through it, it is considered clear liquid Q: Can I eat nuts, seeds, beans, popcorn, dried fruits, vegetables & fruits that have skin peel? A: No, you will need to not eat these items starting 3 days prior to procedure. Q: Can I take Uber/Lyft/taxi/bus home? A: An adult MUST be present with you at check-in for your colonoscopy and remain in the endoscopy area until you are discharged. You can take Uber home only if this adult escort is with you at check in, remain in the endoscopy area until you are discharged, and takes the Uber with you to home. Q: Can I sleep it off here and drive myself home? A: No, you must have an adult with you at time of procedure check in, remain in the endoscopy center during your procedure, and drive you home. You cannot drive a vehicle after your procedure the rest of the day. documented in this encounter [facility] 01-22-2024 Telephone encounter Note Left patient vmail to call back to confirm procedure 06/01 at 230 pm. [facility] 01-22-2024 Miscellaneous Notes Left patient vmail to call back to confirm procedure 06/01 at 230 pm. documented in this encounter [facility] 01-22-2024 History and physical note COLORECTAL SURGERY New Patient Visit January 22, 2024 Chief Complaint: distal transverse colon polypoid lesion History of Present Illness: Carlito Chatterjee is a 84 year old year old male being seen in clinic at the request of Dr. Manuel Ramsay to discuss need for ESD/EMR regarding a 15 mm polypoid lesion was found in the distal transverse colon on recent colonoscopy. COLONOSCOPY dated 12/23/2023: Findings: - The perianal and digital rectal examinations were normal. - A 15 mm polypoid lesion was found in the distal transverse colon. The lesion was sessile. No bleeding was present. This was biopsied with a cold forceps for histology. This has been marked before and will need a saline lift to remove - Non-bleeding internal hemorrhoids were found during retroflexion. The hemorrhoids were moderate and small. Impression: - Preparation of the colon was fair. - Likely benign polypoid lesion in the distal transverse colon. Biopsied. - Non-bleeding internal hemorrhoids. Office Visit dated 12/05/2023 completed by Eva Ash APRN.EARLY CHILDHOOD ASSISTANT (General Surgery): Assessment IMPRESSION: history of colonic polyps, screen for colon cancer, BRBPR PLAN: I have reviewed my findings with the surgeon. Will plan for lower endoscopy. We discussed the risks and benefits of the planned endoscopy. I have informed the patient that complications can occur including failure to complete the endoscopy and perforation. Carlito had the opportunity to ask questions concerning the planned endoscopy. My staff has also explained the procedure to the patient in understandable terms and has given the patient printed material concerning the procedure. Carlito freely consents to surgery. I plan to use Golytely bowel preparation Will reach out to Dr. Whitaker about holding Plavix. I have explained to the patient the difference between IV conscious sedation and MAC anesthesia - and I have offered either, according to the patient's wishes. I have explained that with IV conscious sedation there is no anesthesia provider available and therefore there is a limitation of the amount of IV medications that can be given and that the patient may wake up in the middle of the procedure and/or experience pain/discomfort during the procedure. Further discussion was done and the patient was given the opportunity to ask questions and all questions were answered. Carlito chooses IV conscious sedation Carlito was counseled that if there are changes in his/her medical condition, to let the office know if surgery should proceed. If there are changes in patient's medical condition from time of this encounter to the day of the procedure that preclude anesthesia, patient may have procedure cancelled for patient's safety. Diagnoses: (Z12.11) Encounter for screening for malignant neoplasm of colon (primary encounter diagnosis) (Z86.010) History of colonic polyps (K62.5) BRBPR (bright red blood per rectum). Office Visit dated 07/03/[address] Lit Whitaker (Cardiology): IMPRESSION: Mr. Chatterjee is a 83 year old male 1. 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 No family history of aortic disease. 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 Stage I elephant trunk using 24 mm hemashield graft. Antegrade cerebral perfusion via innominate artery after reconstruction of arch vessels on 02/04/2014. 2. 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 Residual descending dissection. Stable 4. HTN - monitor BP at home and record. Overall he appears to be doing very well. PLAN AND RECOMMENDATIONS: - Reduce the metoprolol to 50 mg daily due to bradycardia - Continue remainder current medical regimen - Follow up with monitoring of BP with PCP to monitor for up trending of BPs. - Follow-up with Dr Baptiste. - Diet, exercise advised. - Follow up in [address] aorta and with myself and Dr Sinha as directed. CTA ABDOMEN/PELVIS WO/W IVCON dated 07/03/2023: 1. Status post repair of type A dissection with first stage elephant trunk procedure without anastomotic complications. 2. 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 No significant interval change of aortic caliber. 3. 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 4. 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 PAST MEDICAL HISTORY Diagnosis Date Arrhythmia Coronary artery disease H/O colonoscopy with polypectomy 04/26/2011 multiple adenomatous polyps - 2 yr surveillance recommended Hyperlipidemia Impaired glucose tolerance Kidney disease PMH - PAST MEDICAL HISTORY OF hep C - treated in 2016. lab confirms virus irradicated. 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 Aguilar COLONOSCOPY FLX DX W/COLLJ SPEC WHEN PFRMD 10/22/2016 Colonoscopy COLONOSCOPY SCREENING 12/23/2023 HERNIA REPAIR HX groin (right) PAST SURGICAL HISTORY OF left knee surgery PAST SURGICAL HISTORY OF 06/09/2000 heart cath PAST SURGICAL HISTORY OF 01/2014 new aorta ascending TONSILLECTOMY PRIMARY/SECONDARY Tonsillectomy Current Outpatient Medications Medication Sig Dispense Refill ramipril (ALTACE) 10 mg capsule Take 10 mg by mouth once daily. tamsulosin ER (FLOMAX) 0.4 mg cap Take 0.4 mg by mouth once daily. 3 or 4 time a week amLODIPine (NORVASC) 5 mg tablet Take 5 mg by mouth once daily. metoprolol succinate ER (TOPROL XL) 100 mg Take 100 mg by mouth once daily. rosuvastatin (CRESTOR) 5 mg tablet Take 10 mg by mouth once daily. aspirin 81 mg chewable tablet Take 81 mg by mouth once daily. 3 time a week 60 tablet 0 clopidogrel (PLAVIX) 75 mg tablet Take 1 tablet by mouth once daily. 30 tablet 0 No current facility-administered medications for this visit. ALLERGIES Allergen Reactions Celebrex [Celecoxib] Hives, Itching Review of Systems / PACC screen: Do you have difficulty climbing a full flight of stairs without feeling short of breath? no Do you require oxygen for your breathing or have your gone to an emergency department because of breathing problems? no Are you on dialysis or have you been told that your kidneys do not work well as they should? no Do have an implanted cardiac device (pacemaker, defibrillator etc.) that has not been checked in the last 6 months? no Have you had an organ transplant? no Have you been told that you had excessive bleeding during surgical procedures or do you take blood thinning medications other than aspirin? Yes, Plavix Have you ever had a heart attack, heart stents/surgery, valve problems, or other heart problems? Yes, ascending aorta replacement Have you had a stroke, seizures, or unexplained loss of consciousness? no Do you have a neurologic condition like Parkinson's disease or multiple sclerosis? no Have you or a blood relative had a life-threatening reaction to anesthesia? no Do you have cirrhosis of the liver or other liver disease? no Have you had a blood clot within the past year? no Do you take insulin or other injections for diabetes? no Do you have sleep apnea or have you been told you may have sleep apnea? no Do you have other implanted devices (deep brain stimulator, spinal cord stimulator, etc.)? no Physical Exam: Sensitive Exam: yes, The sensitive examination was discussed with the Patient or Patient's Authorized Bible Teacher. As applicable, any other physician, advance practice provider, medical student, or other health professional student that will be observing or involved in the sensitive examination for educational or training purposes was discussed with the Patient or Authorized Bible Teacher. The Patient or Authorized Bible Teacher has agreed to proceed with the sensitive examination. (Sensitive examination includes inspection and/or palpation of the breasts, pelvis, prostate and anorectal regions) BP 138/51 (BP Site: Left Arm, BP Position: Sitting, BP Cuff Size: Regular Adult) Pulse (!) 56 Temp 36.4 C (97.5 F) (Temporal) Resp 20 Ht 176.5 cm (5' 9.5) Wt 79.2 kg (174 lb 9.7 oz) SpO2 98% BMI 25.41 kg/m General Appearance: Well appearing, alert, in no acute distress, well-hydrated, well nourished. Lungs: Lungs clear to auscultation. No wheezing, rhonchi, rales. Heart: RRR without murmur, gallop, or rubs. No ectopy Edema: no Abdomen: Normal abdominal exam, Abdomen soft, non-tender. Bowel sounds normal. No masses, organomegaly Anorectal: Perianal skin is intact. No erythema, induration or excoriation. No fissure, fistula or external hemorrhoids. Assessment Medical Decision Making: Assessment & Diagnosis: Carlito Chatterjee is a 84 year old male with a transverse colon lesion Data Reviewed: Tests & Documents Reviewed/ordered: Review of prior operative reports Review of Pathology I have independently interpreted: CT Abdomen, CT Pelvis I have discussed Carlito Chatterjee's treatment plan and/or results with him. Treatment plan: ESD on A31 Ankur to schedule Colorectal Surgery Risk of morbidity, mortality and/or complications of treatment plan: low CORS RESEARCH DISCUSSION - Surgeon DID NOT DISCUSS Colorectal Research with the patient during encounter. [facility] Work Phone: 01-22-2024 History and physical note COLORECTAL SURGERY New Patient Visit January 22, 2024 Chief Complaint: distal transverse colon polypoid lesion History of Present Illness: Carlito Chatterjee is a 84 year old year old male being seen in clinic at the request of Dr. Manuel Ramsay to discuss need for ESD/EMR regarding a 15 mm polypoid lesion was found in the distal transverse colon on recent colonoscopy. COLONOSCOPY dated 12/23/2023: Findings: - The perianal and digital rectal examinations were normal. - A 15 mm polypoid lesion was found in the distal transverse colon. The lesion was sessile. No bleeding was present. This was biopsied with a cold forceps for histology. This has been marked before and will need a saline lift to remove - Non-bleeding internal hemorrhoids were found during retroflexion. The hemorrhoids were moderate and small. Impression: - Preparation of the colon was fair. - Likely benign polypoid lesion in the distal transverse colon. Biopsied. - Non-bleeding internal hemorrhoids. Office Visit dated 12/05/2023 completed by Eva Ash APRN.EARLY CHILDHOOD ASSISTANT (General Surgery): Assessment IMPRESSION: history of colonic polyps, screen for colon cancer, BRBPR PLAN: I have reviewed my findings with the surgeon. Will plan for lower endoscopy. We discussed the risks and benefits of the planned endoscopy. I have informed the patient that complications can occur including failure to complete the endoscopy and perforation. Carlito had the opportunity to ask questions concerning the planned endoscopy. My staff has also explained the procedure to the patient in understandable terms and has given the patient printed material concerning the procedure. Carlito freely consents to surgery. I plan to use Golytely bowel preparation Will reach out to Dr. Whitaker about holding Plavix. I have explained to the patient the difference between IV conscious sedation and MAC anesthesia - and I have offered either, according to the patient's wishes. I have explained that with IV conscious sedation there is no anesthesia provider available and therefore there is a limitation of the amount of IV medications that can be given and that the patient may wake up in the middle of the procedure and/or experience pain/discomfort during the procedure. Further discussion was done and the patient was given the opportunity to ask questions and all questions were answered. Carlito chooses IV conscious sedation Carlito was counseled that if there are changes in his/her medical condition, to let the office know if surgery should proceed. If there are changes in patient's medical condition from time of this encounter to the day of the procedure that preclude anesthesia, patient may have procedure cancelled for patient's safety. Diagnoses: (Z12.11) Encounter for screening for malignant neoplasm of colon (primary encounter diagnosis) (Z86.010) History of colonic polyps (K62.5) BRBPR (bright red blood per rectum). Office Visit dated 07/03/[address] Lit Whitaker (Cardiology): IMPRESSION: Mr. Chatterjee is a 83 year old male 1. 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 No family history of aortic disease. 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 Stage I elephant trunk using 24 mm hemashield graft. Antegrade cerebral perfusion via innominate artery after reconstruction of arch vessels on 02/04/2014. 2. 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 Residual descending dissection. Stable 4. HTN - monitor BP at home and record. Overall he appears to be doing very well. PLAN AND RECOMMENDATIONS: - Reduce the metoprolol to 50 mg daily due to bradycardia - Continue remainder current medical regimen - Follow up with monitoring of BP with PCP to monitor for up trending of BPs. - Follow-up with Dr Baptiste. - Diet, exercise advised. - Follow up in [address] aorta and with myself and Dr Sinha as directed. CTA ABDOMEN/PELVIS WO/W IVCON dated 07/03/2023: 1. Status post repair of type A dissection with first stage elephant trunk procedure without anastomotic complications. 2. 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 No significant interval change of aortic caliber. 3. 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 4. 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 PAST MEDICAL HISTORY Diagnosis Date Arrhythmia Coronary artery disease H/O colonoscopy with polypectomy 04/26/2011 multiple adenomatous polyps - 2 yr surveillance recommended Hyperlipidemia Impaired glucose tolerance Kidney disease PMH - PAST MEDICAL HISTORY OF hep C - treated in 2016. lab confirms virus irradicated. 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 Aguilar COLONOSCOPY FLX DX W/COLLJ SPEC WHEN PFRMD 10/22/2016 Colonoscopy COLONOSCOPY SCREENING 12/23/2023 HERNIA REPAIR HX groin (right) PAST SURGICAL HISTORY OF left knee surgery PAST SURGICAL HISTORY OF 06/09/2000 heart cath PAST SURGICAL HISTORY OF 01/2014 new aorta ascending TONSILLECTOMY PRIMARY/SECONDARY <AGE 13 Tonsillectomy Current Outpatient Medications Medication Sig Dispense Refill ramipril (ALTACE) 10 mg capsule Take 10 mg by mouth once daily. tamsulosin ER (FLOMAX) 0.4 mg cap Take 0.4 mg by mouth once daily. 3 or 4 time a week amLODIPine (NORVASC) 5 mg tablet Take 5 mg by mouth once daily. metoprolol succinate ER (TOPROL XL) 100 mg Take 100 mg by mouth once daily. rosuvastatin (CRESTOR) 5 mg tablet Take 10 mg by mouth once daily. aspirin 81 mg chewable tablet Take 81 mg by mouth once daily. 3 time a week 60 tablet 0 clopidogrel (PLAVIX) 75 mg tablet Take 1 tablet by mouth once daily. 30 tablet 0 No current facility-administered medications for this visit. ALLERGIES Allergen Reactions Celebrex [Celecoxib] Hives, Itching Review of Systems / PACC screen: Do you have difficulty climbing a full flight of stairs without feeling short of breath? no Do you require oxygen for your breathing or have your gone to an emergency department because of breathing problems? no Are you on dialysis or have you been told that your kidneys do not work well as they should? no Do have an implanted cardiac device (pacemaker, defibrillator etc.) that has not been checked in the last 6 months? no Have you had an organ transplant? no Have you been told that you had excessive bleeding during surgical procedures or do you take blood thinning medications other than aspirin? Yes, Plavix Have you ever had a heart attack, heart stents/surgery, valve problems, or other heart problems? Yes, ascending aorta replacement Have you had a stroke, seizures, or unexplained loss of consciousness? no Do you have a neurologic condition like Parkinson's disease or multiple sclerosis? no Have you or a blood relative had a life-threatening reaction to anesthesia? no Do you have cirrhosis of the liver or other liver disease? no Have you had a blood clot within the past year? no Do you take insulin or other injections for diabetes? no Do you have sleep apnea or have you been told you may have sleep apnea? no Do you have other implanted devices (deep brain stimulator, spinal cord stimulator, etc.)? no Physical Exam: Sensitive Exam: yes, The sensitive examination was discussed with the Patient or Patient's Authorized Bible Teacher. As applicable, any other physician, advance practice provider, medical student, or other health professional student that will be observing or involved in the sensitive examination for educational or training purposes was discussed with the Patient or Authorized Bible Teacher. The Patient or Authorized Bible Teacher has agreed to proceed with the sensitive examination. (Sensitive examination includes inspection and/or palpation of the breasts, pelvis, prostate and anorectal regions) BP 138/51 (BP Site: Left Arm, BP Position: Sitting, BP Cuff Size: Regular Adult) Pulse (!) 56 Temp 36.4 C (97.5 F) (Temporal) Resp 20 Ht 176.5 cm (5' 9.5) Wt 79.2 kg (174 lb 9.7 oz) SpO2 98% BMI 25.41 kg/m General Appearance: Well appearing, alert, in no acute distress, well-hydrated, well nourished. Lungs: Lungs clear to auscultation. No wheezing, rhonchi, rales. Heart: RRR without murmur, gallop, or rubs. No ectopy Edema: no Abdomen: Normal abdominal exam, Abdomen soft, non-tender. Bowel sounds normal. No masses, organomegaly Anorectal: Perianal skin is intact. No erythema, induration or excoriation. No fissure, fistula or external hemorrhoids. Assessment Medical Decision Making: Assessment & Diagnosis: Carlito Chatterjee is a 84 year old male with a transverse colon lesion Data Reviewed: Tests & Documents Reviewed/ordered: Review of prior operative reports Review of Pathology I have independently interpreted: CT Abdomen, CT Pelvis I have discussed Carlito Chatterjee's treatment plan and/or results with him. Treatment plan: ESD on A31 Ankur to schedule Colorectal Surgery Risk of morbidity, mortality and/or complications of treatment plan: low CORS RESEARCH DISCUSSION - Surgeon DID NOT DISCUSS Colorectal Research with the patient during encounter. documented in this encounter [facility] 12-23-2023 Note Formatting of this n ote might be different from the original. The patient received a copy of Colonoscopy discharge instructions that contain information for how to contact the physician who performed the procedure and when to seek medical care.Mendy Florez RN [facility] 12-23-2023 Miscellaneous Notes The patient received a copy of Colonoscopy discharge instructions that contain information for how to contact the physician who performed the procedure and when to seek medical care.Mendy Florez RN documented in this encounter [facility] 12-23-2023 Nurse Note Arrived in phase II via cart. Left lateral position. Sedated, but responds to verbal stimuli. Color normal; skin warm and dry. Respirations wnl and unlabored. Abdomen soft and with + bowel sounds in quads X 4. Patient resting comfortably. Family at bedside. Dr. Ramsay at bedside to review procedure and recommendations. Mendy Florez RN [facility] 12-23-2023 Nurse Note Arrived in phase II via cart. Left lateral position. Sedated, but responds to verbal stimuli. Color normal; skin warm and dry. Respirations wnl and unlabored. Abdomen soft and with + bowel sounds in quads X 4. Patient resting comfortably. Family at bedside. Dr. Ramsay at bedside to review procedure and recommendations. Mendy Florez RN documented in this encounter [facility] 12-23-2023 History and physical note HISTORY AND PHYSICAL Carlito Chatterjee : 1940 REFERRING PHYSICIAN: No referring provider defined for this encounter. CHIEF COMPLAINT: Patient presents with: Consult: Colonoscopy consultation. HPI: Carlito is a 83 year old male referred for endoscopy. Carlito notes history of colonic polyps. Carlito denies abdominal pain.. Carlito denies diarrhea. Refers his stools are soft in consistency. Carlito denies constipation. Carlito denies a change in bowel habits. Carlito denies melena. Carlito notes bright red blood per rectum. Starting Saturday pt has noticed BRBPR in the toilet and possibly scant amount on the toilet paper. Denies black tarry stools, or blood in the stool. This episodes of blood are inconsistent, will happen then go a day without any. Denies straining, pain with BM or itching. Carlito denies hemorrhoids. Carlito denies heartburn. Carlito denies dysphagia. Carlito denies a history of ulcers/ peptic ulcer disease. Denies family history of colon issues. Carlito has a hx of ascending aorta repair in 2013. Last ECHO 06/2023 with EF of 59%. Aorta dilation of 4.1 cm. Follows with [facility] cardiology, no longer needing to see cardiac surgery, only follow with Dr. Whitaker. Denies CP, SOB, palpitations, dizziness, syncope, edema, recent hospitalizations. Currently takes plavix Carlito has undergone prior endoscopy. Last colonoscopy 10/[address] Meier at [facility]. Sedation received: Fentanyl 100 micrograms IV, Midazolam 5 mg IV Impression: - The entire examined colon is normal. - No specimens collected. CURRENT MEDICATIONS Current Outpatient Medications Medication Sig ramipril (ALTACE) 10 mg capsule Take 10 mg by mouth once daily. tamsulosin ER (FLOMAX) 0.4 mg cap Take 0.4 mg by mouth once daily. 3 or 4 time a week amLODIPine (NORVASC) 5 mg tablet Take 5 mg by mouth once daily. metoprolol succinate ER (TOPROL XL) 100 mg Take 100 mg by mouth once daily. rosuvastatin (CRESTOR) 5 mg tablet Take 10 mg by mouth once daily. aspirin 81 mg chewable tablet Take 81 mg by mouth once daily. 3 time a week clopidogrel (PLAVIX) 75 mg tablet Take 1 tablet by mouth once daily. No current facility-administered medications for this visit. ALLERGIES: Celebrex [Celecoxib] PAST MEDICAL HISTORY PAST MEDICAL HISTORY Diagnosis Date Arrhythmia Coronary artery disease H/O colonoscopy with polypectomy 04/26/2011 multiple adenomatous polyps - 2 yr surveillance recommended Hyperlipidemia Impaired glucose tolerance Kidney disease PMH - PAST MEDICAL HISTORY OF hep C - treated in 2015. lab confirms virus irradicated. 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 Aguilar COLONOSCOPY FLX DX W/COLLJ SPEC WHEN PFRMD 10/22/2016 Colonoscopy HERNIA REPAIR HX groin (right) PAST SURGICAL HISTORY OF left knee surgery PAST SURGICAL HISTORY OF 06/09/00 heart cath PAST SURGICAL HISTORY OF 01/2014 new aorta ascending TONSILLECTOMY PRIMARY/SECONDARY Tonsillectomy FAMILY HISTORY FAMILY HISTORY Problem Relation Age of Onset Ischemic Heart Disease Father Ischemic Heart Disease Mother Ischemic Heart Disease Sister 71 Diabetes Brother Stroke Brother SOCIAL HISTORY Social History Tobacco Use Smoking status: Every Day Types: Pipe Smokeless tobacco: Never Tobacco comments: pipe for 50 years /quit started again with pipe Vaping Use Vaping status: Never Used Substance Use Topics Alcohol use: Yes Comment: rarely Drug use: No REVIEW OF SYMPTOMS: REVIEW OF SYSTEMS: General: The patient denies fatigue, denies weight loss, denies weight gain, denies feeling hot, and feelings of cold. Cardiovascular: The patient denies chest pain, denies heart disease, + high blood pressure, + high cholesterol, and denies poor circulation. Respiratory: The patient denies tuberculosis, denies pneumonia, denies frequent cough, denies shortness of breath, and denies coughing up blood. Gastrointestinal: The patient denies difficulty swallowing, denies acid reflux, denies ulcers, denies jaundice/hepatitis, denies gallbladder problems, denies vomiting, denies black or tarry stools, denies hemorrhoids, + bleeding from rectum, denies diverticulitis, denies constipation, denies diarrhea, denies loss of stool control, and denies hernias.. Hematologic: The patient + history of bruising, denies bleeding, and denies anemia. Infections: The patient denies a history of measles and mumps, denies rheumatic fever, and denies sexually transmitted diseases. Musculoskeletal: The patient denies back pain/injury, denies back problems, denies sciatica, denies knee/foot trouble, denies arthritis, or denies gout. PHYSICAL EXAMINATION: General: The patient is 83 year old, male well nourished, well hydrated in no acute distress. The patient is oriented to time, place, and person. VITALS: Pulse 66, temperature 36.1 C (97 F), height 175.3 cm (5' 9), weight 79.3 kg (174 lb 12.8 oz), SpO2 99%. Body mass index is 25.81 kg/m . HEENT: Normal cephalic, ataumatic, pupils are equally round, sclera are anicteric, mucous membranes are moist, oropharynx is clear. Neck has no masses, asymmetry or lymphadenopathy. Respiratory: Clear to auscultation and percussion. Normal respiratory excursion and pattern. Cardiac: Examination is regular rate and rhythm. Normal S1/S2 Abdominal exam: Soft, nontender, with no palpable masses. No hepatosplenomegaly. No palpable hernias. Extremities: no clubbing, cyanosis or edema. No adenopathy. LABORATORY VALUES: As Noted RADIOLOGIC STUDIES: As Noted Assessment IMPRESSION: history of colonic polyps, screen for colon cancer, BRBPR PLAN: I have reviewed my findings with the surgeon. Will plan for lower endoscopy. We discussed the risks and benefits of the planned endoscopy. I have informed the patient that complications can occur including failure to complete the endoscopy and perforation. Carlito had the opportunity to ask questions concerning the planned endoscopy. My staff has also explained the procedure to the patient in understandable terms and has given the patient printed material concerning the procedure. Carlito freely consents to surgery. I plan to use [employer] bowel preparation Will reach out to Dr. Whitaker about holding Plavix. I have explained to the patient the difference between IV conscious sedation and MAC anesthesia - and I have offered either, according to the patient's wishes. I have explained that with IV conscious sedation there is no anesthesia provider available and therefore there is a limitation of the amount of IV medications that can be given and that the patient may wake up in the middle of the procedure and/or experience pain/discomfort during the procedure. Further discussion was done and the patient was given the opportunity to ask questions and all questions were answered. Carlito chooses IV conscious sedation Carlito was counseled that if there are changes in his/her medical condition, to let the office know if surgery should proceed. If there are changes in patient's medical condition from time of this encounter to the day of the procedure that preclude anesthesia, patient may have procedure cancelled for patient's safety. Diagnoses: (Z12.11) Encounter for screening for malignant neoplasm of colon (primary encounter diagnosis) (Z86.010) History of colonic polyps (K62.5) BRBPR (bright red blood per rectum) Portions of this documentation were copied and pasted from previous office visit notes in order to provide a cohesive continuity of the history. The note has been reviewed and edited and updated as necessary. Eva Ash APRN.EARLY CHILDHOOD ASSISTANT UPDATED HISTORY AND PHYSICAL EXAMINATION SERVICE DATE: 12/23/2023 SERVICE TIME: 7:31 AM SENSITIVE EXAMINATION CONSENT: The sensitive examination was discussed with the Patient or Patient's Authorized Bible Teacher. As applicable, any other physician, advance practice provider, medical student, or other health professional student that will be observing or involved in the sensitive examination for educational or training purposes was discussed with the Patient or Authorized Bible Teacher. The Patient or Authorized Bible Teacher has agreed to proceed with the sensitive examination. (Sensitive examination includes inspection and/or palpation of the breasts, pelvis, prostate and anorectal regions) PHYSICAL EXAM MUST BE COMPLETED ON ADMISSION The History and Physical (completed in the past 30 days) has been reviewed and the patient has been examined. The contents accurately reflect the patient's condition with the following additions or revisions since the H&P was completed. Examination indicates no changes. This H&P can be found in the attached. SIGNATURE: Manuel Ramsay III, MD PATIENT NAME: Carlito Chatterjee DATE: December 23, 2023 TIME: 7:31 AM [facility] 12-23-2023 History and physical note HISTORY AND PHYSICAL Carlito Chatterjee : 1940 REFERRING PHYSICIAN: No referring provider defined for this encounter. CHIEF COMPLAINT: Patient presents with: Consult: Colonoscopy consultation. HPI: Carlito is a 83 year old male referred for endoscopy. Carlito notes history of colonic polyps. Carlito denies abdominal pain.. Carlito denies diarrhea. Refers his stools are soft in consistency. Carlito denies constipation. Carlito denies a change in bowel habits. Carlito denies melena. Carlito notes bright red blood per rectum. Starting Saturday pt has noticed BRBPR in the toilet and possibly scant amount on the toilet paper. Denies black tarry stools, or blood in the stool. This episodes of blood are inconsistent, will happen then go a day without any. Denies straining, pain with BM or itching. Carlito denies hemorrhoids. Carlito denies heartburn. Carlito denies dysphagia. Carlito denies a history of ulcers/ peptic ulcer disease. Denies family history of colon issues. Carlito has a hx of ascending aorta repair in 2013. Last ECHO 06/2023 with EF of 59%. Aorta dilation of 4.1 cm. Follows with [facility] cardiology, no longer needing to see cardiac surgery, only follow with Dr. Whitaker. Denies CP, SOB, palpitations, dizziness, syncope, edema, recent hospitalizations. Currently takes plavix Carlito has undergone prior endoscopy. Last colonoscopy 10/[address] Meier at [facility]. Sedation received: Fentanyl 100 micrograms IV, Midazolam 5 mg IV Impression: - The entire examined colon is normal. - No specimens collected. CURRENT MEDICATIONS Current Outpatient Medications Medication Sig ramipril (ALTACE) 10 mg capsule Take 10 mg by mouth once daily. tamsulosin ER (FLOMAX) 0.4 mg cap Take 0.4 mg by mouth once daily. 3 or 4 time a week amLODIPine (NORVASC) 5 mg tablet Take 5 mg by mouth once daily. metoprolol succinate ER (TOPROL XL) 100 mg Take 100 mg by mouth once daily. rosuvastatin (CRESTOR) 5 mg tablet Take 10 mg by mouth once daily. aspirin 81 mg chewable tablet Take 81 mg by mouth once daily. 3 time a week clopidogrel (PLAVIX) 75 mg tablet Take 1 tablet by mouth once daily. No current facility-administered medications for this visit. ALLERGIES: Celebrex [Celecoxib] PAST MEDICAL HISTORY PAST MEDICAL HISTORY Diagnosis Date Arrhythmia Coronary artery disease H/O colonoscopy with polypectomy 04/26/2011 multiple adenomatous polyps - 2 yr surveillance recommended Hyperlipidemia Impaired glucose tolerance Kidney disease PMH - PAST MEDICAL HISTORY OF hep C - treated in 2016. lab confirms virus irradicated. 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 Aguilar COLONOSCOPY FLX DX W/COLLJ SPEC WHEN PFRMD 10/22/2016 Colonoscopy HERNIA REPAIR HX groin (right) PAST SURGICAL HISTORY OF left knee surgery PAST SURGICAL HISTORY OF 06/09/00 heart cath PAST SURGICAL HISTORY OF 01/2014 new aorta ascending TONSILLECTOMY PRIMARY/SECONDARY <AGE 12 Tonsillectomy FAMILY HISTORY FAMILY HISTORY Problem Relation Age of Onset Ischemic Heart Disease Father Ischemic Heart Disease Mother Ischemic Heart Disease Sister 71 Diabetes Brother Stroke Brother SOCIAL HISTORY Social History Tobacco Use Smoking status: Every Day Types: Pipe Smokeless tobacco: Never Tobacco comments: pipe for 50 years /quit started again with pipe Vaping Use Vaping status: Never Used Substance Use Topics Alcohol use: Yes Comment: rarely Drug use: No REVIEW OF SYMPTOMS: REVIEW OF SYSTEMS: General: The patient denies fatigue, denies weight loss, denies weight gain, denies feeling hot, and feelings of cold. Cardiovascular: The patient denies chest pain, denies heart disease, + high blood pressure, + high cholesterol, and denies poor circulation. Respiratory: The patient denies tuberculosis, denies pneumonia, denies frequent cough, denies shortness of breath, and denies coughing up blood. Gastrointestinal: The patient denies difficulty swallowing, denies acid reflux, denies ulcers, denies jaundice/hepatitis, denies gallbladder problems, denies vomiting, denies black or tarry stools, denies hemorrhoids, + bleeding from rectum, denies diverticulitis, denies constipation, denies diarrhea, denies loss of stool control, and denies hernias.. Hematologic: The patient + history of bruising, denies bleeding, and denies anemia. Infections: The patient denies a history of measles and mumps, denies rheumatic fever, and denies sexually transmitted diseases. Musculoskeletal: The patient denies back pain/injury, denies back problems, denies sciatica, denies knee/foot trouble, denies arthritis, or denies gout. PHYSICAL EXAMINATION: General: The patient is 83 year old, male well nourished, well hydrated in no acute distress. The patient is oriented to time, place, and person. VITALS: Pulse 66, temperature 36.1 C (97 F), height 175.3 cm (5' 9), weight 79.3 kg (174 lb 12.8 oz), SpO2 99%. Body mass index is 25.81 kg/m . HEENT: Normal cephalic, ataumatic, pupils are equally round, sclera are anicteric, mucous membranes are moist, oropharynx is clear. Neck has no masses, asymmetry or lymphadenopathy. Respiratory: Clear to auscultation and percussion. Normal respiratory excursion and pattern. Cardiac: Examination is regular rate and rhythm. Normal S1/S2 Abdominal exam: Soft, nontender, with no palpable masses. No hepatosplenomegaly. No palpable hernias. Extremities: no clubbing, cyanosis or edema. No adenopathy. LABORATORY VALUES: As Noted RADIOLOGIC STUDIES: As Noted Assessment IMPRESSION: history of colonic polyps, screen for colon cancer, BRBPR PLAN: I have reviewed my findings with the surgeon. Will plan for lower endoscopy. We discussed the risks and benefits of the planned endoscopy. I have informed the patient that complications can occur including failure to complete the endoscopy and perforation. Carlito had the opportunity to ask questions concerning the planned endoscopy. My staff has also explained the procedure to the patient in understandable terms and has given the patient printed material concerning the procedure. Carlito freely consents to surgery. I plan to use [employer] bowel preparation Will reach out to Dr. Whitaker about holding Plavix. I have explained to the patient the difference between IV conscious sedation and MAC anesthesia - and I have offered either, according to the patient's wishes. I have explained that with IV conscious sedation there is no anesthesia provider available and therefore there is a limitation of the amount of IV medications that can be given and that the patient may wake up in the middle of the procedure and/or experience pain/discomfort during the procedure. Further discussion was done and the patient was given the opportunity to ask questions and all questions were answered. Carlito chooses IV conscious sedation Carlito was counseled that if there are changes in his/her medical condition, to let the office know if surgery should proceed. If there are changes in patient's medical condition from time of this encounter to the day of the procedure that preclude anesthesia, patient may have procedure cancelled for patient's safety. Diagnoses: (Z12.11) Encounter for screening for malignant neoplasm of colon (primary encounter diagnosis) (Z86.010) History of colonic polyps (K62.5) BRBPR (bright red blood per rectum) Portions of this documentation were copied and pasted from previous office visit notes in order to provide a cohesive continuity of the history. The note has been reviewed and edited and updated as necessary. Eva Ash APRN.CNP UPDATED HISTORY AND PHYSICAL EXAMINATION SERVICE DATE: 12/23/2023 SERVICE TIME: 7:31 AM SENSITIVE EXAMINATION CONSENT: The sensitive examination was discussed with the Patient or Patient's Authorized Bible Teacher. As applicable, any other physician, advance practice provider, medical student, or other health professional student that will be observing or involved in the sensitive examination for educational or training purposes was discussed with the Patient or Authorized Bible Teacher. The Patient or Authorized Bible Teacher has agreed to proceed with the sensitive examination. (Sensitive examination includes inspection and/or palpation of the breasts, pelvis, prostate and anorectal regions) PHYSICAL EXAM MUST BE COMPLETED ON ADMISSION The History and Physical (completed in the past 30 days) has been reviewed and the patient has been examined. The contents accurately reflect the patient's condition with the following additions or revisions since the H&P was completed. Examination indicates no changes. This H&P can be found in the attached. SIGNATURE: Manuel Ramsay III, MD PATIENT NAME: Carlito Chatterjee DATE: December 23, 2023 TIME: 7:31 AM documented in this encounter [facility] 12-09-2023 Telephone encounter Note Patient notified Rossi Burgess Senior Design Engineer [facility] 12-09-2023 Telephone encounter Note Images from the original note were not included. Lit Whitaker DO Hammond, Breanna 5-7 days Previous Messages ----- Message ----- From: Rossi Burgess Sent: 12/06/2023 8:04 AM EDT To: Lit Whitaker DO Subject: RE: CARDIAC CLEARANCE Can you please advise how long patient needs to be off Plavix for the procedure Rossi Burgess Senior Design Engineer ----- Message ----- From: Lit Whitaker DO Sent: 12/05/2023 3:46 PM EDT To: Rossi Burgess Subject: RE: CARDIAC CLEARANCE yes ----- Message ----- From: Rossi Burgess Sent: 12/05/2023 9:40 AM EDT To: Lit Whitaker DO Subject: CARDIAC CLEARANCE Dinesh Whitaker , The above patient was seen by Eva Ash and is scheduled for a Colonoscopy with Dr. Dr. Ramsay under Procedural Sedation on 12/23/2023. Please let me know if this patient is optimally cleared from a cardiac standpoint to proceed. Please advise how long patient should hold Plavix. Thank you in advance Rossi Burgess Senior Design Engineer [facility] 12-09-2023 Miscellaneous Notes Patient notified Rossi Burgess Senior Design Engineer Images from the original note were not included. Lit Whitaker, Rossi Doll 5-7 days Previous Messages ----- Message ----- From: Rossi Burgess Sent: 12/06/2023 8:04 AM EDT To: Lit Whitaker DO Subject: RE: CARDIAC CLEARANCE Can you please advise how long patient needs to be off Plavix for the procedure Rossi Burgess Senior Design Engineer ----- Message ----- From: Lit Whitaker DO Sent: 12/05/2023 3:46 PM EDT To: Rossi Burgess Subject: RE: CARDIAC CLEARANCE yes ----- Message ----- From: Rossi Burgess Sent: 12/05/2023 9:40 AM EDT To: Lit Whitaker DO Subject: CARDIAC CLEARANCE Dinesh Whitaker , The above patient was seen by Eva Ash and is scheduled for a Colonoscopy with Dr. Dr. Ramsay under Procedural Sedation on 12/23/2023. Please let me know if this patient is optimally cleared from a cardiac standpoint to proceed. Please advise how long patient should hold Plavix. Thank you in advance Rossi Burgess Senior Design Engineer 12/23/2023 colon Per Eva Ash patient to seek cardiac clearance prior to proceeding with scopes in ASC with Dr. Ramsay on 12/23/2023. Patient follows [facility] Dr. Lit Whitaker. Message sent for clearance and to review on how long to hold Plavix Patient aware of all steps needed to be completed prior to proceeding and will be contacted with information about plavix Rossi Burgess Senior Design Engineer documented in this encounter [facility] 12-05-2023 Telephone encounter Note 12/23/2023 colon Per Eva Medranoir patient to seek cardiac clearance prior to proceeding with scopes in ASC with Dr. Ramsay on 12/23/2023. Patient follows [facility] Dr. Lit Whitaker. Message sent for clearance and to review on how long to hold Plavix Patient aware of all steps needed to be completed prior to proceeding and will be contacted with information about plavix Rossi Burgess Senior Design Engineer [facility] 12-05-2023 Nurse Note This Nurse reviewed and provided patient with copy of written instructions for colonoscopy with [employer]. credit assistant will contact the patient's atm manager regarding holding his Plavix. The patient verbalized understanding and was given a number for questions. Lillie Real RN December 05, 2023 9:38 AM [facility] 12-05-2023 Nurse Note This Nurse reviewed and provided patient with copy of written instructions for colonoscopy with [employer]. credit assistant will contact the patient's atm manager regarding holding his Plavix. The patient verbalized understanding and was given a number for questions. Lillie Real RN December 05, 2023 9:38 AM documented in this encounter [facility] 12-05-2023 History of Presen t illness Narrative HISTORY AND PHYSICAL Carlito Chatterjee : 1940 REFERRING PHYSICIAN: No referring provider defined for this encounter. CHIEF COMPLAINT: Patient presents with: Consult: Colonoscopy consultation. HPI: Carlito is a 83 year old male referred for endoscopy. Carlito notes history of colonic polyps. Carlito denies abdominal pain.. Carlito denies diarrhea. Refers his stools are soft in consistency. Carlito denies constipation. Carlito denies a change in bowel habits. Carlito denies melena. Carlito notes bright red blood per rectum. Starting Saturday pt has noticed BRBPR in the toilet and possibly scant amount on the toilet paper. Denies black tarry stools, or blood in the stool. This episodes of blood are inconsistent, will happen then go a day without any. Denies straining, pain with BM or itching. Carlito denies hemorrhoids. Carlito denies heartburn. Carlito denies dysphagia. Carlito denies a history of ulcers/ peptic ulcer disease. Denies family history of colon issues. Carlito has a hx of ascending aorta repair in 2013. Last ECHO 06/2023 with EF of 59%. Aorta dilation of 4.1 cm. Follows with [facility] cardiology, no longer needing to see cardiac surgery, only follow with Dr. Whitaker. Denies CP, SOB, palpitations, dizziness, syncope, edema, recent hospitalizations. Currently takes plavix Carlito has undergone prior endoscopy. Last colonoscopy 10/[address] Meier at [facility]. Sedation received: Fentanyl 100 micrograms IV, Midazolam 5 mg IV Impression: - The entire examined colon is normal. - No specimens collected. Current Outpatient Medications Medication Sig ramipril (ALTACE) 10 mg capsule Take 10 mg by mouth once daily. tamsulosin ER (FLOMAX) 0.4 mg cap Take 0.4 mg by mouth once daily. 3 or 4 time a week amLODIPine (NORVASC) 5 mg tablet Take 5 mg by mouth once daily. metoprolol succinate ER (TOPROL XL) 100 mg Take 100 mg by mouth once daily. rosuvastatin (CRESTOR) 5 mg tablet Take 10 mg by mouth once daily. aspirin 81 mg chewable tablet Take 81 mg by mouth once daily. 3 time a week clopidogrel (PLAVIX) 75 mg tablet Take 1 tablet by mouth once daily. No current facility-administered medications for this visit. ALLERGIES: Celebrex [Celecoxib] PAST MEDICAL HISTORY Diagnosis Date Arrhythmia Coronary artery disease H/O colonoscopy with polypectomy 04/26/2011 multiple adenomatous polyps - 2 yr surveillance recommended Hyperlipidemia Impaired glucose tolerance Kidney disease PMH - PAST MEDICAL HISTORY OF hep C - treated in 2015. lab confirms virus irradicated. 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 Aguilar COLONOSCOPY FLX DX W/COLLJ SPEC WHEN PFRMD 10/22/2016 Colonoscopy HERNIA REPAIR HX groin (right) PAST SURGICAL HISTORY OF left knee surgery PAST SURGICAL HISTORY OF 06/09/00 heart cath PAST SURGICAL HISTORY OF 01/2014 new aorta ascending TONSILLECTOMY PRIMARY/SECONDARY <AGE 13 Tonsillectomy FAMILY HISTORY Problem Relation Age of Onset Ischemic Heart Disease Father Ischemic Heart Disease Mother Ischemic Heart Disease Sister 71 Diabetes Brother Stroke Brother Social History Tobacco Use Smoking status: Every Day Types: Pipe Smokeless tobacco: Never Tobacco comments: pipe for 50 years /quit started again with pipe Vaping Use Vaping status: Never Used Substance Use Topics Alcohol use: Yes Comment: rarely Drug use: No REVIEW OF SYMPTOMS: REVIEW OF SYSTEMS: General: The patient denies fatigue, denies weight loss, denies weight gain, denies feeling hot, and feelings of cold. Cardiovascular: The patient denies chest pain, denies heart disease, + high blood pressure, + high cholesterol, and denies poor circulation. Respiratory: The patient denies tuberculosis, denies pneumonia, denies frequent cough, denies shortness of breath, and denies coughing up blood. Gastrointestinal: The patient denies difficulty swallowing, denies acid reflux, denies ulcers, denies jaundice/hepatitis, denies gallbladder problems, denies vomiting, denies black or tarry stools, denies hemorrhoids, + bleeding from rectum, denies diverticulitis, denies constipation, denies diarrhea, denies loss of stool control, and denies hernias.. Hematologic: The patient + history of bruising, denies bleeding, and denies anemia. Infections: The patient denies a history of measles and mumps, denies rheumatic fever, and denies sexually transmitted diseases. Musculoskeletal: The patient denies back pain/injury, denies back problems, denies sciatica, denies knee/foot trouble, denies arthritis, or denies gout. PHYSICAL EXAMINATION: General: The patient is 83 year old, male well nourished, well hydrated in no acute distress. The patient is oriented to time, place, and person. VITALS: Pulse 66, temperature 36.1 C (97 F), height 175.3 cm (5' 9), weight 79.3 kg (174 lb 12.8 oz), SpO2 99%. Body mass index is 25.81 kg/m . HEENT: Normal cephalic, ataumatic, pupils are equally round, sclera are anicteric, mucous membranes are moist, oropharynx is clear. Neck has no masses, asymmetry or lymphadenopathy. Respiratory: Clear to auscultation and percussion. Normal respiratory excursion and pattern. Cardiac: Examination is regular rate and rhythm. Normal S1/S2 Abdominal exam: Soft, nontender, with no palpable masses. No hepatosplenomegaly. No palpable hernias. Extremities: no clubbing, cyanosis or edema. No adenopathy. LABORATORY VALUES: As Noted RADIOLOGIC STUDIES: As Noted Assessment IMPRESSION: history of colonic polyps, screen for colon cancer, BRBPR PLAN: I have reviewed my findings with the surgeon. Will plan for lower endoscopy. We discussed the risks and benefits of the planned endoscopy. I have informed the patient that complications can occur including failure to complete the endoscopy and perforation. Carlito had the opportunity to ask questions concerning the planned endoscopy. My staff has also explained the procedure to the patient in understandable terms and has given the patient printed material concerning the procedure. Carlito freely consents to surgery. I plan to use [employer] bowel preparation Will reach out to Dr. Whitaker about holding Plavix. I have explained to the patient the difference between IV conscious sedation and MAC anesthesia - and I have offered either, according to the patient's wishes. I have explained that with IV conscious sedation there is no anesthesia provider available and therefore there is a limitation of the amount of IV medications that can be given and that the patient may wake up in the middle of the procedure and/or experience pain/discomfort during the procedure. Further discussion was done and the patient was given the opportunity to ask questions and all questions were answered. Carlito chooses IV conscious sedation Carlito was counseled that if there are changes in his/her medical condition, to let the office know if surgery should proceed. If there are changes in patient's medical condition from time of this encounter to the day of the procedure that preclude anesthesia, patient may have procedure cancelled for patient's safety. Diagnoses: (Z12.11) Encounter for screening for malignant neoplasm of colon (primary encounter diagnosis) (Z86.010) History of colonic polyps (K62.5) BRBPR (bright red blood per rectum) Portions of this documentation were copied and pasted from previous office visit notes in order to provide a cohesive continuity of the history. The note has been reviewed and edited and updated as necessary. Eva Ash APRN.VELASQUEZ documented in this encounter [facility] 12-05-2023 Note HNO ID: [id number] Author: EVA ASH APRN.CNP Service: ? Author Type: Nurse Practitioner Type: Progress Notes Filed: 12/05/2023 09:20 Note Text: HISTORY AND PHYSICAL Carlito Chatterjee : 1940 REFERRING PHYSICIAN: No referring provider defined for this encounter. CHIEF COMPLAINT: Patient presents with: Consult: Colonoscopy consultation. HPI: Carlito is a 83 year old male referred for endoscopy. Carlito notes history of colonic polyps. Carlito denies abdominal pain.. Carlito denies diarrhea. Refers his stools are soft in consistency. Carlito denies constipation. Carlito denies a change in bowel habits. Carlito denies melena. Carlito notes bright red blood per rectum. Starting Saturday pt has noticed BRBPR in the toilet and possibly scant amount on the toilet paper. Denies black tarry stools, or blood in the stool. This episodes of blood are inconsistent, will happen then go a day without any. Denies straining, pain with BM or itching. Carlito denies hemorrhoids. Carlito denies heartburn. Carlito denies dysphagia. Carlito denies a history of ulcers/ peptic ulcer disease. Denies family history of colon issues. Carlito has a hx of ascending aorta repair in 2013. Last ECHO 06/2023 with EF of 59%. Aorta dilation of 4.1 cm. Follows with [facility] cardiology, no longer needing to see cardiac surgery, only follow with Dr. Whitaker. Denies CP, SOB, palpitations, dizziness, syncope, edema, recent hospitalizations. Currently takes plavix Carlito has undergone prior endoscopy. Last colonoscopy 10/[address] Meier at [facility]. Sedation received: Fentanyl 100 micrograms IV, Midazolam 5 mg IV Impression: - The entire examined colon is normal. - No specimens collected. Current Outpatient Medications Medication Sig ramipril (ALTACE) 10 mg capsule Take 10 mg by mouth once daily. tamsulosin ER (FLOMAX) 0.4 mg cap Take 0.4 mg by mouth once daily. 3 or 4 time a week amLODIPine (NORVASC) 5 mg tablet Take 5 mg by mouth once daily. metoprolol succinate ER (TOPROL XL) 100 mg Take 100 mg by mouth once daily. rosuvastatin (CRESTOR) 5 mg tablet Take 10 mg by mouth once daily. aspirin 81 mg chewable tablet Take 81 mg by mouth once daily. 3 time a week clopidogrel (PLAVIX) 75 mg tablet Take 1 tablet by mouth once daily. No current facility-administered medications for this visit. ALLERGIES: Celebrex [Celecoxib] PAST MEDICAL HISTORY Diagnosis Date Arrhythmia Coronary artery disease H/O colonoscopy with polypectomy 04/26/2011 multiple adenomatous polyps - 2 yr surveillance recommended Hyperlipidemia Impaired glucose tolerance Kidney disease PMH - PAST MEDICAL HISTORY OF hep C - treated in 2016. lab confirms virus irradicated. 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 Aguilar COLONOSCOPY FLX DX W/COLLJ SPEC WHEN PFRMD 10/22/2016 Colonoscopy HERNIA REPAIR HX groin (right) PAST SURGICAL HISTORY OF left knee surgery PAST SURGICAL HISTORY OF 06/09/00 heart cath PAST SURGICAL HISTORY OF 01/2014 new aorta ascending TONSILLECTOMY PRIMARY/SECONDARY Tonsillectomy FAMILY HISTORY Problem Relation Age of Onset Ischemic Heart Disease Father Ischemic Heart Disease Mother Ischemic Heart Disease Sister 71 Diabetes Brother Stroke Brother Social History Tobacco Use Smoking status: Every Day Types: Pipe Smokeless tobacco: Never Tobacco comments: pipe for 50 years /quit started again with pipe Vaping Use Vaping status: Never Used Substance Use Topics Alcohol use: Yes Comment: rarely Drug use: No REVIEW OF SYMPTOMS: REVIEW OF SYSTEMS: General: The patient denies fatigue, denies weight loss, denies weight gain, denies feeling hot, and feelings of cold. Cardiovascular: The patient denies chest pain, denies heart disease, + high blood pressure, + high cholesterol, and denies poor circulation. Respiratory: The patient denies tuberculosis, denies pneumonia, denies frequent cough, denies shortness of breath, and denies coughing up blood. Gastrointestinal: The patient denies difficulty swallowing, denies acid reflux, denies ulcers, denies jaundice/hepatitis, denies gallbladder problems, denies vomiting, denies black or tarry stools, denies hemorrhoids, + bleeding from rectum, denies diverticulitis, denies constipation, denies diarrhea, denies loss of stool control, and denies hernias.. Hematologic: The patient + history of bruising, denies bleeding, and denies anemia. Infections: The patient denies a history of measles and mumps, denies rheumatic fever, and denies sexually transmitted diseases. Musculoskeletal: The patient denies back pain/injury, (more content not included)... [facility] 10-16-2023 History of Presen t illness Narrative TELEPHONE VISIT (audio only) PROGRESS NOTE This is a telephone encounter initiated for an established patient. The patient, parent or guardian is not originating from a related Evaluation & Management service provided within the previous 7 days nor leading to an Evaluation & Management service or procedure within the next 24 hours or soonest available appointment. I have communicated my name and active licensure. The patient's identity and physical location were verified at the time of this visit. Either the patient or their legal retail service representative has been informed of the risks and benefits of -- and alternatives to -- treatment through a remote evaluation and consents to proceed with the evaluation remotely. Carlito Chatterjee has consented to this telephone encounter. FOLLOW-UP Aortic Aneurysm, Aortic Dissection, and Aortic Repair Patient Type: Established PCP: MD Bonny Gonsales [address] [place] [address] Other Physician: No referring provider defined for this encounter. Patient Mr. Chatterjee returns, now 24+ months following the last assessment of his arch and ascending Aortic Repair. The patient is asymptomatic. 01/30/2014 -- Dr Ferrer Replacement of the ascending aorta, aortic arch and bypasses to innominate and carotid arteries. The CT scan from 07/03/23 was reviewed and reveals a maximum aortic diameter of 47 mm in the area of Aortic root. There is no change. The Echocardiogram reveals normal ventricular function and well functioning valves. Impression: The patient is doing well after aortic repair, cardiac surgery, and the last visit. Dr Recinos has reviewed his Mr Chatterjee's information and would like to follow up with Dr Whitaker in the future. No need to return to see Dr Recinos unless Dr Whitaker has any concerns. Plan: He will return to see Cardiology (Dr Whitaker) in 2 years The following studies will be necessary: - CT gated thoracic aorta with contrast - Echocardiogram And if there is significant changes, they can recontact us for surgical evaluation. Mr Chatterjee agrees. Total Time Spent: 5-10 minutes Gilda Chopra APRN.CNS documented in this encounter [facility] 10-16-2023 Note HNO ID: [id number] Author: GILDA CHOPRA APRN.CNS Service: ? Author Type: Clinical Nurse Specialist Type: Progress Notes Filed: 10/16/2023 11:48 Note Text: TELEPHONE VISIT (audio only) PROGRESS NOTE This is a telephone encounter initiated for an established patient. The patient, parent or guardian is not originating from a related Evaluation AND Management service provided within the previous 7 days nor leading to an Evaluation AND Management service or procedure within the next 24 hours or soonest available appointment. I have communicated my name and active licensure. The patient's identity and physical location were verified at the time of this visit. Either the patient or their legal retail service representative has been informed of the risks and benefits of -- and alternatives to -- treatment through a remote evaluation and consents to proceed with the evaluation remotely. Carlito Chatterjee has consented to this telephone encounter. FOLLOW-UP Aortic Aneurysm, Aortic Dissection, and Aortic Repair Patient Type: Established PCP: MD Bonny Gonsales [facility] [address] [place] [address] Other Physician: No referring provider defined for this encounter. Patient Mr. Chatterjee returns, now 24+ months following the last assessment of his arch and ascending Aortic Repair. The patient is asymptomatic. 01/30/2014 -- Dr Ferrer Replacement of the ascending aorta, aortic arch and bypasses to innominate and carotid arteries. The CT scan from 07/03/23 was reviewed and reveals a maximum aortic diameter of 47 mm in the area of Aortic root. There is no change. The Echocardiogram reveals normal ventricular function and well functioning valves. Impression: The patient is doing well after aortic repair, cardiac surgery, and the last visit. Dr Recinos has reviewed his Mr Chatterjee's information and would like to follow up with Dr Whitaker in the future. No need to return to see Dr Recinos unless Dr Whitaker has any concerns. Plan: He will return to see Cardiology (Dr Whitaker) in 2 years The following studies will be necessary: - CT gated thoracic aorta with contrast - Echocardiogram And if there is significant changes, they can recontact us for surgical evaluation. Mr Chattejree agrees. Total Time Spent: 5-10 minutes Gilda Chopra APRN.[facility] 07-03-2023 History of Presen t illness Narrative Images from the original note were not included. [facility] Department of Cardiovascular Medicine SECTION OF CARDIOVASCULAR IMAGING OUTPATIENT VISIT DATE July 03, 2023 OUTPATIENT VISIT TYPE ESTABLISHED PRIMARY CARE PHYSICIAN: Benjamin Crum [id number] [facility] [place] [address] REFERRING PHYSICIAN: No referring provider defined for this encounter. CHIEF COMPLAINT: Follow up HISTORY OF PRESENT ILLNESS: Mr. Chatterjee is a 83 year old male who presents today for follow-up visit. He is accompanied by his . Since his last visit, he states that he has been well. Both Mr. Conner and his keep active on their property. He reports he is scheduled to see Dr. Recinos later this summer. He denies chest pain, shortness of breath, orthopnea, cough, edema, palpitations, PND, lightheadedness or syncope. PAST CARDIAC HISTORY: PAST MEDICAL HISTORY Diagnosis Date Arrhythmia Coronary artery disease H/O colonoscopy with polypectomy 04/26/2011 multiple adenomatous polyps - 2 yr surveillance recommended Hyperlipidemia Impaired glucose tolerance Kidney disease PMH - PAST MEDICAL HISTORY OF hep C - treated in 2015. lab confirms virus irradicated. 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 Aguilar COLONOSCOPY FLX DX W/COLLJ SPEC WHEN PFRMD 10/22/2016 Colonoscopy HERNIA REPAIR HX groin (right) PAST SURGICAL HISTORY OF left knee surgery PAST SURGICAL HISTORY OF 06/09/00 heart cath PAST SURGICAL HISTORY OF 01/2014 new aorta ascending TONSILLECTOMY PRIMARY/SECONDARY <AGE 13 Tonsillectomy Social History Tobacco Use Smoking status: Every Day Types: Pipe Smokeless tobacco: Never Tobacco comments: pipe for 50 years /quit started again with pipe Vaping Use Vaping Use: Never used Substance Use Topics Alcohol use: Yes Comment: rarely Drug use: No FAMILY HISTORY Problem Relation Age of Onset Ischemic Heart Disease Father Ischemic Heart Disease Mother Ischemic Heart Disease Sister 71 Diabetes Brother Stroke Brother ALLERGIES Allergen Reactions Celebrex [Celecoxib] Hives, Itching MEDICATIONS: ramipril (ALTACE) 10 mg capsule Take 10 mg by mouth once daily. tamsulosin ER (FLOMAX) 0.4 mg cap Take 0.4 mg by mouth once daily. 3 or 4 time a week amLODIPine (NORVASC) 5 mg tablet Take 5 mg by mouth once daily. metoprolol succinate ER (TOPROL XL) 100 mg Take 100 mg by mouth once daily. rosuvastatin (CRESTOR) 5 mg tablet Take 10 mg by mouth once daily. aspirin 81 mg chewable tablet Take 81 mg by mouth once daily. 3 time a week clopidogrel (PLAVIX) 75 mg tablet Take 1 tablet by mouth once daily. PHYSICAL EXAMINATION: BP 119/50 Pulse (!) 58 Ht 174.5 cm (5' 8.7) Wt 77.1 kg (170 lb) SpO2 96% BMI 25.32 kg/m General: Well appearing, in no acute distress, speaking in complete sentences. Neck: No jugular venous distention, Lungs: Clear to auscultation bilaterally, no wheezing or rhonchi. Heart: Regular rhythm, PMI not displaced, S1, S2 normal, no S3, no S4, no heaves, no rub and no murmur. Extremities: No peripheral edema CARDIOVASCULAR MEDICINE TESTING: Last ECHO Result Conclusion ECHO Collected: 07/03/2023 10:27 AM (Final result) Impression: CONCLUSIONS: - Exam indication: Re-evaluation of known ascending aortic dilatation with the change in clinical status - The left ventricle is normal in size. Left ventricular systolic function is normal. EF = 59 5% (2D biplane) - The right ventricle is normal in size. Right ventricular systolic function is normal. - The left atrial cavity is mildly dilated. - The right atrial cavity is mildly dilated. - The visualized aorta is dilated with a maximal dimension of 4.1 cm. Defer to CTA. - Exam was compared with the prior echocardiographic exam performed on 03/02/2015. Similar findings. * * * Final * * * Last CT Result Conclusion CTA CHEST (NONGATED) WO/W IVCON Exam End: 07/03/2023 12:14 PM (Final result) Impression: IMPRESSION: Stable 1. Status post repair of type A dissection with first stage elephant trunk procedure without anastomotic complications. 2. 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 No significant interval change of aortic caliber. 3. 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 4. 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 Global Sales Director: BRIONNA Transcribe Date/Time: Jul 03 2023 12:24P Dictated by : DERECK CARDENAS MD This examination was interpreted and the report reviewed and electronically signed by: DERECK CARDENAS MD on Jul 03 2023 1:11PM EST I have personally reviewed the CT, Electrocardiogram and Echocardiogram. IMPRESSION: Mr. Chatterjee is a 83 year old male 1. 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 No family history of aortic disease. 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 Stage I elephant trunk using 24 mm hemashield graft. Antegrade cerebral perfusion via innominate artery after reconstruction of arch vessels on 02/04/2014. 2. 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 Residual descending dissection. Stable 4. HTN - monitor BP at home and record. Overall he appears to be doing very well. PLAN AND RECOMMENDATIONS: - Reduce the metoprolol to 50 mg daily due to bradycardia - Continue remainder current medical regimen - Follow up with monitoring of BP with PCP to monitor for up trending of BPs. - Follow-up with Dr Baptiste. - Diet, exercise advised. - Follow up in [address] aorta and with myself and Dr Sinha as directed. CONTACT INFORMATION: Lit Whitaker DO, [facility], [place] [facility] and Mickie Flanagan Endowed Chair of Cardiovascular Imaging Director, Echocardiography Laboratory [facility] Department of Cardiovascular Medicine [facility] Desk [id number] [place] [address] Office - [phone] extension [phone] Office Appointments: [phone] -[phone] extension [phone] documented in this encounter [facility] 07-03-2023 History of Presen t illness Narrative Radiology Service Progress Note DATE OF SERVICE: July 03, 2023 TIME: 11:44 AM PATIENT WEIGHT: 170 LBS PATIENT IDENTITY VERIFICATION COMPLETED USING TWO (2) STANDARD IDENTIFIERS: Name and Date of confirmed by patient verbally and Name and Date of confirmed by identification band. FALL SCREENING: Has the patient had 2 falls in the last year or 1 fall with injury or currently using an Ambulatory Assistive Device (Walker, Cane, Wheelchair, Crutches, etc.)? No PATIENT GENDER DATA: Male ALLERGIES: Reviewed and unchanged CONTRAST ALLERGY: No EXAM: CT -CONTRAST INDUCED NEPHROPATHY RISK FACTORS: Patient age > 60 years CREATININE: Creatinine Date Value Ref Range Status 12/21/2016 1.31 (H) 0.73 - 1.22 mg/dL Final Creatinine (POCT) Date Value Ref Range Status 02/08/2021 1.30 0.7 - 1.4 mg/dL Final 02/11/2019 1.40 0.7 - 1.4 mg/dL Final eGFR (POCT) Date Value Ref Range Status 02/08/2021 53 mL/min/1.73 m2 Final eGFR- (POCT) Date Value Ref Range Status 02/08/2021 >60 mL/min/1.73 m2 Final P.O.C.T. RESULTS: POC done: Yes, See Lab Tab July 03, 2023. CR 1.4 GFR 50. TREATMENT: No Hydration needed. IV SITE: Ambulatory: A peripheral IV was started in the Right antecubital site with a Angio cath: 20 gauge. and A Saline lock was inserted per protocol IV SITE APPEARANCE: Clean,Dry and Intact SIGNATURE: Chayo Peace RN PATIENT NAME: Carlito Chatterjee DATE: July 03, 2023 TIME: 11:44 AM Radiology Service Progress Note PATIENT NAME: Carlito Chatterjee DATE OF SERVICE: July 03, 2023 TIME: 12:08 PM PATIENT IDENTITY VERIFICATION COMPLETED USING TWO (2) IDENTIFIERS: Name and Date of confirmed by patient verbally and Name and Date of confirmed by identification band. FALL SCREENING: Has the patient had 2 falls in the last year or 1 fall with injury or currently using an Ambulatory Assistive Device (Walker, Cane, Wheelchair, Crutches, etc.)? No PATIENT GENDER DATA: Male PATIENT RELEVANT IMPLANT DATA REVIEWED: Yes PATIENT PRESENTS WITH AN IMPLANTABLE OR ATTACHED LEGAL NURSE CONSULTANT: No RADIOLOGY DEPARTMENT: CT; Exam(s) Completed: CTA Abdomen Pelvis and CTA Cardiac PERIPHERAL IV DATA: Site assessment: Clean,Dry and Intact, Site disposition Discontinued SIGNED BY: RT Magnus(R) July 03, 2023 12:08 PM documented in this encounter [facility] 08-31-2022 Miscellaneous Notes Patient's notified and verbalized understanding of instructions given.Franny Carranza LPN Please call patient and let him know that his ultrasound is negative patient does not have any blood clots. Patient should follow-up with primary care provider for further testing. documented in this encounter [facility] 07-02-2022 History of Presen t illness Narrative Hypertension: He denies chest pain, denies headaches, and he denies dizziness, while being on his medications. He admits to checking his BP's at home. Current medication/treatments: amlodipine,metoprolol succinate,ramipril BP Readings from Last 3 Encounters: 07/02/22 109/72 03/05/22 130/60 01/01/22 122/74 Hyperlipidemia: His last lipid profile was done 06/26/22 . Current medication/treatments: zetia and rosuvastatin. He states: no to medication side effects. He states: no to other medications tried and failed? He would like refills on his plavix, which he uses for CAD. Chief Complaint Patient presents with Hypertension Heart Problem Hyperlipidemia Hypertension: He denies chest pain, denies headaches, and he denies dizziness, while being on his medications. He admits to checking his BP's at home. Current medication/treatments: amlodipine,metoprolol succinate,ramipril BP Readings from Last 3 Encounters: 07/02/22 109/72 03/05/22 130/60 01/01/22 122/74 Hyperlipidemia: His last lipid profile was done 06/26/22 . Current medication/treatments: zetia and rosuvastatin. He states: no to medication side effects. He states: no to other medications tried and failed? He would like refills on his plavix, which he uses for CAD. HPI Hypertension, Blood Pressure Recheck Carlito Chatterjee Jr., a 82 y.o. male, is here for recheck on his blood pressure and refills of his medication. He has been compliant with his medication. yes There have been no intolerability issues. yes BP Readings from Last 3 Encounters: 07/02/22 : 109/72 03/05/22 : 130/60 01/01/22 : 122/74 Hyperlipidemia Carlito Chatterjee Jr., an 82 y.o. male, is here for refill of his cholesterol medications. He has been compliant with his medicines. yes There have been no intolerances or side effects. yes No results found for: CHOLESTEROL, TRIG, HDL, LDLCALC Cad Patient is here for refill of his medications. Medicines have been effective. He has been compliant. Allergies Allergen Reactions Celebrex [Celecoxib] Itching Lipitor [Atorvastatin] Elevated enzymes Outpatient Medications Prior to Visit Medication Sig Dispense Refill aspirin 81 MG Chew Tab chewable tablet Chew 1 tablet daily. ketoconazole 2 % Shampoo shampoo Apply 1 Application topically daily. Lather and wash face and ears, daily as needed. 120 mL 6 Tamsulosin HCl 0.4 MG capsule Take 1 capsule by mouth daily. 90 capsule 1 amLODIPine (Norvasc) 5 MG tablet Take 1 tablet by mouth daily. 90 tablet 1 clopidogrel (Plavix) 75 MG tablet Take 1 tablet by mouth daily. 90 tablet 1 ezetimibe (Zetia) 10 MG tablet Take 1 tablet by mouth at bedtime. 90 tablet 1 metoprolol succinate (Toprol XL) 100 MG tablet XL Take 1 tablet by mouth daily. 90 tablet 1 ramipril (Altace) 10 MG capsule Take 1 capsule by mouth daily. 90 capsule 1 rosuvastatin (Crestor) 5 MG tablet Take 1 tablet by mouth daily. 90 tablet 1 No facility-administered medications prior to visit. 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 Lung nodule Neoplasm of uncertain behavior Osteoarthritis 09/27/2003 Paresthesia and pain of extremity Renal disease kidney stones Screening for malignant neoplasm of the rectum family history includes Diabetes in an other family member; Heart Disease - Other in an other family member; Heart Failure in an other family member; Skin Cancer in an other family member. reports that he has quit smoking. His smoking use included pipe. He has never used smokeless tobacco. He reports that he does not drink alcohol and does not use drugs. Past Surgical History: Procedure Laterality Date KNEE REPLACEMENT Bilateral 03/06/2017 REMOVAL CATARACT (PEM) Left 01/20/2015 ANGIOPLASTY 05/15/2010 CARDIAC HEART CATHETERIZATION 05/15/2010 CHOLECYSTECTOMY KNEE ARTHROSCOPY Left TONSILLECTOMY ADENOIDECTOMY Review of Systems Visit Vitals BP 109/72 (BP Location: Left arm, BP Position: Sitting) Pulse 55 Temp 96.8 F (36 C) (Temporal) Ht 1.727 m (5' 8) Wt 81.1 kg (178 lb 12.8 oz) SpO2 95% BMI 27.19 kg/m Review of Systems Constitutional: Negative. Negative for fatigue. HENT: Negative. Negative for congestion. Eyes: Negative. Negative for visual disturbance. Respiratory: Negative. Negative for shortness of breath. Cardiovascular: Negative. Negative for chest pain. Gastrointestinal: Negative. Negative for abdominal pain and nausea. Endocrine: Negative for cold intolerance and heat intolerance. Genitourinary: Negative. Negative for difficulty urinating, frequency and hematuria. Musculoskeletal: Negative. Negative for myalgias. Skin: Negative for rash. Neurological: Negative. Negative for dizziness, weakness, numbness and headaches. Psychiatric/Behavioral: Negative. Negative for sleep disturbance. The patient is not nervous/anxious. Physical Exam Physical Exam Vitals and nursing note reviewed. HENT: Right Ear: No middle ear effusion. Tympanic membrane is not erythematous, retracted or bulging. Tympanic membrane has normal mobility. Eyes: Conjunctiva/sclera: Conjunctivae normal. Pupils: Pupils are equal, round, and reactive to light. Neck: Vascular: No carotid bruit. Cardiovascular: Rate and Rhythm: Normal rate and regular rhythm. Pulmonary: Effort: Pulmonary effort is normal. Breath sounds: Normal breath sounds. Neurological: Mental Status: He is alert and oriented to person, place, and time. Psychiatric: Mood and Affect: Mood normal. Behavior: Behavior normal. Assessment & Plan Problem List Items Addressed This Visit Cardiovascular Coronary artery disease with angina pectoris Relevant Medications amLODIPine (Norvasc) 5 MG tablet Clopidogrel (Plavix) 75 MG tablet Ezetimibe (Zetia) 10 MG tablet Metoprolol succinate (Toprol XL) 100 MG tablet XL ramipril (Altace) 10 MG capsule Rosuvastatin (Crestor) 5 MG tablet Endocrine Hyperlipidemia Relevant Medications Ezetimibe (Zetia) 10 MG tablet Rosuvastatin (Crestor) 5 MG tablet Other Visit Diagnoses Benign essential hypertension Relevant Medications amLODIPine (Norvasc) 5 MG tablet Metoprolol succinate (Toprol XL) 100 MG tablet XL ramipril (Altace) 10 MG capsule García Peoples MD 07/02/2022, 2:18 PM documented in this encounter [facility] 03-05-2022 History of Presen t illness Narrative Ayush is here today with complaints of right ear feels like wind is blowing. Denies pain/discomfort, fullness pressure. Chief Complaint Patient presents with Ear Pain Ayush is here today with complaints of right ear feels like wind is blowing. Denies pain/discomfort, fullness pressure. HPI Patient is here for complaining of funny sound in his right ear. States it sounds like the wind is blowing. Allergies Allergen Reactions Celebrex [Celecoxib] Itching Lipitor [Atorvastatin] Elevated enzymes Outpatient Medications Prior to Visit Medication Sig Dispense Refill amLODIPine (Norvasc) 5 MG tablet Take 1 tablet by mouth daily. 90 tablet 1 aspirin 81 MG Chew Tab chewable tablet take 81 mg by mouth daily.. clopidogrel (Plavix) 75 MG tablet Take 1 tablet by mouth daily. 90 tablet 1 ezetimibe (Zetia) 10 MG tablet Take 1 tablet by mouth at bedtime. 90 tablet 1 ketoconazole 2 % Shampoo shampoo Apply 1 Application topically daily. Lather and wash face and ears, daily as needed. 120 mL 6 metoprolol succinate (Toprol XL) 100 MG tablet XL Take 1 tablet by mouth daily. 90 tablet 1 ramipril (Altace) 10 MG capsule Take 1 capsule by mouth daily. 90 capsule 1 rosuvastatin (Crestor) 5 MG tablet Take 1 tablet by mouth daily. 90 tablet 1 Tamsulosin HCl 0.4 MG capsule Take 1 capsule by mouth daily. 90 capsule 1 No facility-administered medications prior to visit. 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 Lung nodule Neoplasm of uncertain behavior Osteoarthritis 09/27/2003 Paresthesia and pain of extremity Renal disease kidney stones Screening for malignant neoplasm of the rectum family history includes Diabetes in an other family member; Heart Disease - Other in an other family member; Heart Failure in an other family member; Skin Cancer in an other family member. reports that he has quit smoking. His smoking use included pipe. He has never used smokeless tobacco. He reports that he does not drink alcohol and does not use drugs. Past Surgical History: Procedure Laterality Date KNEE REPLACEMENT Bilateral 03/06/2017 REMOVAL CATARACT (PEM) Left 01/20/2015 ANGIOPLASTY 05/15/2010 CARDIAC HEART CATHETERIZATION 05/15/2010 CHOLECYSTECTOMY KNEE ARTHROSCOPY Left TONSILLECTOMY ADENOIDECTOMY Review of Systems Visit Vitals BP 130/60 Pulse 60 Temp 97.1 F (36.2 C) (Temporal) Resp 18 Ht 1.727 m (5' 8) Wt 82.5 kg (181 lb 12.8 oz) SpO2 96% BMI 27.64 kg/m Review of Systems Constitutional: Negative. Negative for fatigue. HENT: Negative. Negative for congestion, ear discharge, ear pain and hearing loss. Eyes: Negative. Negative for visual disturbance. Respiratory: Negative. Negative for cough and shortness of breath. Cardiovascular: Negative. Negative for chest pain. Gastrointestinal: Negative. Negative for abdominal pain and nausea. Genitourinary: Negative. Negative for difficulty urinating, frequency and hematuria. Musculoskeletal: Negative. Negative for myalgias. Skin: Negative for rash. Neurological: Negative. Negative for dizziness, weakness, numbness and headaches. Psychiatric/Behavioral: Negative. Negative for sleep disturbance. The patient is not nervous/anxious. Physical Exam Physical Exam Vitals and nursing note reviewed. Constitutional: General: He is not in acute distress. HENT: Right Ear: No middle ear effusion. There is no impacted cerumen. Tympanic membrane is not erythematous, retracted or bulging. Tympanic membrane has normal mobility. Eyes: Conjunctiva/sclera: Conjunctivae normal. Pupils: Pupils are equal, round, and reactive to light. Neck: Vascular: No carotid bruit. Cardiovascular: Rate and Rhythm: Normal rate and regular rhythm. Pulmonary: Effort: Pulmonary effort is normal. Breath sounds: Normal breath sounds. Neurological: Mental Status: He is alert and oriented to person, place, and time. Psychiatric: Mood and Affect: Mood normal. Judgment: Judgment normal. Assessment & Plan Problem List Items Addressed This Visit None García Peoples MD 03/05/2022, 2:42 PM documented in this encounter [facility] 01-01-2022 History of Presen t illness Narrative Hypertension: He denies chest pain, denies headaches, and he denies dizziness, while being on his medications. He admits to checking his BP's at home. Current medication/treatments: amlodipine, metoprolol, ramipril BP Readings from Last 3 Encounters: 07/17/21 128/70 01/16/21 128/62 07/06/20 132/68 He would like refills on his clopidogrel, which he uses for CAD. Hyperlipidemia: His last lipid profile was done (date) 12/25/21. Current medication/treatments: zetia, rosuvastatin. He states: no to medication side effects. He states: yes to other medications tried and failed? He would like refills on his ketoconazole shampoo, which he uses for dry scalp. (does not need refilled at this time) He would like refills on his tamsulosin, which he uses for Urinary frequency . (does not need refilled at this time) Erectile Dysfunction: He is currently taking vardenafil to help him maintain/get an erection. If there is any other issues with this, or his med, he will discuss it with the doctor. (does not need refilled at time) He had labs done at [facility], to be reviewed at today's visit. Chief Complaint Patient presents with Hypertension 6 mo fu Heart Problem 6 mo fu Hyperlipidemia 6 mo fu Skin Problem 6 mo fu dry scalp Urinary Frequency 6 mo fu Erectile Dysfunction 6 mo fu Lab Review 6 mo fu [facility] Hypertension: He denies chest pain, denies headaches, and he denies dizziness, while being on his medications. He admits to checking his BP's at home. Current medication/treatments: amlodipine, metoprolol, ramipril BP Readings from Last 3 Encounters: 07/17/21 128/70 01/16/21 128/62 07/06/20 132/68 He would like refills on his clopidogrel, which he uses for CAD. Hyperlipidemia: His last lipid profile was done (date) 12/25/21. Current medication/treatments: zetia, rosuvastatin. He states: no to medication side effects. He states: yes to other medications tried and failed? He would like refills on his ketoconazole shampoo, which he uses for dry scalp. (does not need refilled at this time) He would like refills on his tamsulosin, which he uses for Urinary frequency . (does not need refilled at this time) Erectile Dysfunction: He is currently taking vardenafil to help him maintain/get an erection. If there is any other issues with this, or his med, he will discuss it with the doctor. (does not need refilled at time) He had labs done at [facility], to be reviewed at today's visit. HPI Hypertension, Blood Pressure Recheck Carlito Chatterjee Jr., a 81 y.o. male, is here for recheck on his blood pressure and refills of his medication. He has been compliant with his medication. yes There have been no intolerability issues. yes BP Readings from Last 3 Encounters: 01/01/22 : 122/74 07/17/21 : 128/70 01/16/21 : 128/62 Hyperlipidemia Carlito Chatterjee Jr., an 81 y.o. male, is here for refill of his cholesterol medications. He has been compliant with his medicines. yes There have been no intolerances or side effects. yes No results found for: CHOLESTEROL, TRIG, HDL, LDLCALC CAD Patient here for refill of his medication. Medicines have been effective ED Patient is here for refill of his medication. Medications have been effective in improving his symptoms. Urinary frequency Patient here for refill of his medication. Medicines have been effective in reducing his symptoms. Allergies Allergen Reactions Celebrex [Celecoxib] Itching Lipitor [Atorvastatin] Elevated enzymes Outpatient Medications Prior to Visit Medication Sig Dispense Refill aspirin 81 MG Chew Tab chewable tablet take 81 mg by mouth daily.. ketoconazole 2 % Shampoo shampoo Apply 1 Application topically daily. Lather and wash face and ears, daily as needed. 120 mL 6 Tamsulosin HCl 0.4 MG capsule Take 1 capsule by mouth daily. 90 capsule 1 vardenafil 20 MG tablet Take 1 tablet by mouth daily as needed. Maximum recommended dose per day is 20 mg. 10 tablet 3 amLODIPine (Norvasc) 5 MG tablet Take 1 tablet by mouth daily. 90 tablet 1 clopidogrel (Plavix) 75 MG tablet Take 1 tablet by mouth daily. 90 tablet 1 ezetimibe (Zetia) 10 MG tablet Take 1 tablet by mouth at bedtime. 90 tablet 1 metoprolol succinate (Toprol XL) 100 MG tablet XL Take 1 tablet by mouth daily. 90 tablet 1 ramipril (Altace) 10 MG capsule Take 1 capsule by mouth daily. 90 capsule 1 rosuvastatin (Crestor) 5 MG tablet Take 1 tablet by mouth daily. 90 tablet 1 No facility-administered medications prior to visit. 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 Lung nodule Neoplasm of uncertain behavior Osteoarthritis 09/27/2003 Paresthesia and pain of extremity Renal disease kidney stones Screening for malignant neoplasm of the rectum family history includes Diabetes in an other family member; Heart Disease - Other in an other family member; Heart Failure in an other family member; Skin Cancer in an other family member. reports that he has quit smoking. His smoking use included pipe. He has never used smokeless tobacco. He reports that he does not drink alcohol and does not use drugs. Past Surgical History: Procedure Laterality Date KNEE REPLACEMENT Bilateral 03/06/2017 REMOVAL CATARACT (PEM) Left 01/20/2015 ANGIOPLASTY 05/15/2010 CARDIAC HEART CATHETERIZATION 05/15/2010 CHOLECYSTECTOMY KNEE ARTHROSCOPY Left TONSILLECTOMY ADENOIDECTOMY Review of Systems Visit Vitals BP 122/74 Pulse 79 Temp 97.3 F (36.3 C) (Temporal) Resp 18 Ht 1.727 m (5' 8) Wt 82.4 kg (181 lb 9.6 oz) SpO2 98% BMI 27.61 kg/m Review of Systems Constitutional: Negative. Negative for fatigue. HENT: Negative. Negative for congestion. Eyes: Negative. Negative for visual disturbance. Respiratory: Negative. Negative for cough and shortness of breath. Cardiovascular: Negative. Negative for chest pain. Gastrointestinal: Negative. Negative for abdominal pain and nausea. Genitourinary: Negative. Negative for difficulty urinating, frequency and hematuria. Musculoskeletal: Negative. Negative for myalgias. Skin: Negative for rash. Neurological: Negative. Negative for dizziness, weakness, numbness and headaches. Psychiatric/Behavioral: Negative. Negative for sleep disturbance. The patient is not nervous/anxious. Physical Exam Physical Exam Vitals and nursing note reviewed. Constitutional: General: He is not in acute distress. Eyes: Conjunctiva/sclera: Conjunctivae normal. Pupils: Pupils are equal, round, and reactive to light. Neck: Vascular: No carotid bruit. Cardiovascular: Rate and Rhythm: Normal rate and regular rhythm. Pulmonary: Effort: Pulmonary effort is normal. Breath sounds: Normal breath sounds. Skin: General: Skin is warm and dry. Neurological: Mental Status: He is alert and oriented to person, place, and time. Psychiatric: Mood and Affect: Mood normal. Judgment: Judgment normal. Assessment & Plan Problem List Items Addressed This Visit Cardiovascular Coronary artery disease with angina pectoris Relevant Medications amLODIPine (Norvasc) 5 MG tablet clopidogrel (Plavix) 75 MG tablet ezetimibe (Zetia) 10 MG tablet metoprolol succinate (Toprol XL) 100 MG tablet XL ramipril (Altace) 10 MG capsule rosuvastatin (Crestor) 5 MG tablet Endocrine Hyperlipidemia Relevant Medications ezetimibe (Zetia) 10 MG tablet rosuvastatin (Crestor) 5 MG tablet Other Relevant Orders LIPID PANEL W CALCULATED LDL COMPREHENSIVE METABOLIC PANEL Other Impotence of organic origin Other Visit Diagnoses Benign essential hypertension Relevant Medications amLODIPine (Norvasc) 5 MG tablet metoprolol succinate (Toprol XL) 100 MG tablet XL ramipril (Altace) 10 MG capsule Dry scalp Frequency of urination Patient does not need any of his Flomax filled at this time Gacría Peoples MD 01/01/2022, 2:23 PM documented in this encounter [facility] 10-30-2021 History of Presen t illness Narrative Images from the original note were not included. This note was created using [employer]. Subjective Carlito Chatterjee is a 81 year old male. HPI Patient presents with redness to his left lower leg over the past 2 weeks. He hit something on his leg when he was weed whacking and had a small scab. He noticed redness worsening over the past couple of days. He denies fever or chills. No drainage out of it. He denies significant pain. He states it is a little itchy. Review of Systems Constitutional: Negative. HENT: Negative. Respiratory: Negative. Cardiovascular: Negative. Gastrointestinal: Negative. Musculoskeletal: Left lower leg redness All other systems reviewed and are negative. PAST MEDICAL HISTORY Diagnosis Date Arrhythmia Coronary artery disease H/O colonoscopy with polypectomy 04/26/2011 multiple adenomatous polyps - 2 yr surveillance recommended Hyperlipidemia Impaired glucose tolerance Kidney disease PMH - PAST MEDICAL HISTORY OF hep C - treated in 2016. lab confirms virus irradicated. 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 tamsulosin ER (FLOMAX) 0.4 mg cap Take 0.4 mg by mouth once daily. amLODIPine (NORVASC) 5 mg tablet Take 5 mg by mouth once daily. metoprolol succinate ER (TOPROL XL) 100 mg Take 100 mg by mouth once daily. rosuvastatin (CRESTOR) 5 mg tablet Take 5 mg by mouth once daily. aspirin 81 mg chewable tablet Take 1 tablet by mouth once daily. 60 tablet 0 clopidogrel (PLAVIX) 75 mg tablet Take 1 tablet by mouth once daily. 30 tablet 0 ezetimibe (ZETIA) 10 mg ORAL Tab Take one(1) tablet daily. 0 cephALEXin (KEFLEX) 500 mg capsule Take 1 capsule by mouth three times daily for 7 days. 21 capsule 0 triamcinolone acetonide (KENALOG) 0.1 % cream Apply 1 application to affected area three times daily for 7 days. Apply sparingly to area for rash/itching. 80 g 0 No current facility-administered medications for this visit. PAST SURGICAL HISTORY Procedure Laterality Date CATARACT SURGERY, COMPLEX Left 01/20/2015 CHOLECYSTECTOMY Cholecystectomy COLONOSCOPY FLX DX W/COLLJ SPEC WHEN PFRMD 05/04/03 Colonoscopy COLONOSCOPY FLX DX W/COLLJ SPEC WHEN PFRMD 03/05/2011 hyperplastic polyp /Dr. Aguilar COLONOSCOPY FLX DX W/COLLJ SPEC WHEN PFRMD 10/22/2016 Colonoscopy HERNIA REPAIR HX groin (right) PAST SURGICAL HISTORY OF left knee surgery PAST SURGICAL HISTORY OF 06/09/00 heart cath PAST SURGICAL HISTORY OF 01/2014 new aorta ascending TONSILLECTOMY PRIMARY/SECONDARY <AGE 12 Tonsillectomy FAMILY HISTORY Problem Relation Age of Onset Ischemic Heart Disease Father Ischemic Heart Disease Mother Ischemic Heart Disease Sister 71 Diabetes Brother Stroke Brother Social History Tobacco Use Smoking status: Every Day Types: Pipe Smokeless tobacco: Never Tobacco comments: pipe for 50 years /quit -2016 Vaping Use Vaping Use: Never used Substance Use Topics Alcohol use: Yes Drug use: No Objective BP 172/92 Pulse 65 Temp (!) 35.9 C (96.7 F) (Left Tympanic) Resp 16 Wt 80.6 kg (177 lb 9.6 oz) SpO2 97% BMI 26.23 kg/m Physical Exam Vitals reviewed. Constitutional: Appearance: Normal appearance. HENT: Head: Normocephalic and atraumatic. Musculoskeletal: Legs: Comments: Small area of erythema and warmth with a central scab to the left lower leg. No lymphangitic streaking. No sign of foreign body palpated or visualized. No vesicles or petechiae. Skin: General: Skin is warm and dry. Neurological: Mental Status: He is alert. ASSESSMENT/PLAN: 1. Skin infection - ICD9: 686.9, ICD10: L08.9 - Begin treatment with Cephalaxin (Keflex) - triamcinolone cream for itching. Follow up with pc if not improving. Sandra Polo PA-C Assessment and Plan documented in this encounter [facility] 07-17-2021 History of Presen t illness Narrative Hypertension: He denies chest pain, denies headaches, and he denies dizziness, while being on his medications. He denies checking his BP's at home. Current medication/treatments: amlodipine, metoprolol, rimipril BP Readings from Last 3 Encounters: 01/16/21 128/62 07/06/20 132/68 12/29/19 110/60 He would like refills on his clopidogrel, which he uses for CAD. Hyperlipidemia: His last lipid profile was done (date) 07/11/21. Current medication/treatments: zetia, rosuvastatin. He states: no to medication side effects. He states: yes to other medications tried and failed? He would like refills on his ketoconazole shampoo, which he uses for dry scalp. He would like refills on his tamsulosin, which he uses for urinary frequency. Erectile Dysfunction: He is currently taking vardenafil to help him maintain/get an erection. If there is any other issues with this, or his med, he will discuss it with the doctor. He had labs done at [facility], to be reviewed at today's visit. Chief Complaint Patient presents with Hypertension 6 mo fu Heart Problem 6 mo fu Hyperlipidemia 6 mo fu Other 6 mo fu dry scalp Urinary Frequency 6 mo fu Erectile Dysfunction 6 mo fu Lab Review 6 mo fu [facility] Hypertension: He denies chest pain, denies headaches, and he denies dizziness, while being on his medications. He denies checking his BP's at home. Current medication/treatments: amlodipine, metoprolol, rimipril BP Readings from Last 3 Encounters: 01/16/21 128/62 07/06/20 132/68 12/29/19 110/60 He would like refills on his clopidogrel, which he uses for CAD. Hyperlipidemia: His last lipid profile was done (date) 07/11/21. Current medication/treatments: zetia, rosuvastatin. He states: no to medication side effects. He states: yes to other medications tried and failed? He would like refills on his ketoconazole shampoo, which he uses for dry scalp. He would like refills on his tamsulosin, which he uses for urinary frequency. Erectile Dysfunction: He is currently taking vardenafil to help him maintain/get an erection. If there is any other issues with this, or his med, he will discuss it with the doctor. He had labs done at [facility], to be reviewed at today's visit. HPI Hypertension, Blood Pressure Recheck Carlito Chatterjee Jr., a 81 y.o. male, is here for recheck on his blood pressure and refills of his medication. He has been compliant with his medication. yes There have been no intolerability issues. yes BP Readings from Last 3 Encounters: 07/17/21 : 128/70 01/16/21 : 128/62 07/06/20 : 132/68 Hyperlipidemia Carlito Chatterjee Jr., an 81 y.o. male, is here for refill of his cholesterol medications. He has been compliant with his medicines. yes There have been no intolerances or side effects. yes No results found for: CHOLESTEROL, TRIG, HDL, LDLCALC Reflux Carlito Chatterjee Jr., an 81 y.o. male, is here for refill on his medication for his gastroesophageal reflux. Since being on the medication his symptoms have Improved. Has had no problems with the medicine. yes He is compliant with taking the medication. yes He has noted no change in stools no blood or melena in the stool. yes Ed Medication has been effective BPH patient here for refill of his medication medication has been effective in reducing his symptoms. CAD Patient is here for refill of his medication. Medicine has been effective Allergies Allergen Reactions Celebrex [Celecoxib] Itching Lipitor [Atorvastatin] Elevated enzymes Outpatient Medications Prior to Visit Medication Sig Dispense Refill aspirin 81 MG Chew Tab chewable tablet take 81 mg by mouth daily.. amLODIPine (Norvasc) 5 MG tablet Take 1 tablet by mouth daily. 90 tablet 1 clopidogrel (Plavix) 75 MG tablet Take 1 tablet by mouth daily. 90 tablet 1 ezetimibe (Zetia) 10 MG tablet Take 1 tablet by mouth at bedtime. 90 tablet 1 ketoconazole 2 % Shampoo shampoo Apply 1 Application topically daily. Lather and wash face and ears, daily as needed. 120 mL 6 metoprolol succinate (Toprol XL) 100 MG tablet XL Take 1 tablet by mouth daily. 90 tablet 1 ramipril (Altace) 10 MG capsule Take 1 capsule by mouth daily. 90 capsule 1 rosuvastatin (Crestor) 5 MG tablet Take 1 tablet by mouth daily. 90 tablet 1 Tamsulosin HCl 0.4 MG capsule Take 1 capsule by mouth daily. 90 capsule 1 vardenafil 20 MG tablet Take 1 tablet by mouth daily as needed. Maximum recommended dose per day is 20 mg. 10 tablet 3 No facility-administered medications prior to visit. 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 Lung nodule Neoplasm of uncertain behavior Osteoarthritis 09/27/2003 Paresthesia and pain of extremity Renal disease kidney stones Screening for malignant neoplasm of the rectum family history includes Diabetes in an other family member; Heart Disease - Other in an other family member; Heart Failure in an other family member; Skin Cancer in an other family member. reports that he has quit smoking. His smoking use included pipe. He has never used smokeless tobacco. He reports that he does not drink alcohol and does not use drugs. Past Surgical History: Procedure Laterality Date KNEE REPLACEMENT Bilateral 03/06/2017 REMOVAL CATARACT (PEM) Left 01/20/2015 ANGIOPLASTY 05/15/2010 CARDIAC HEART CATHETERIZATION 05/15/2010 CHOLECYSTECTOMY KNEE ARTHROSCOPY Left TONSILLECTOMY ADENOIDECTOMY Review of Systems Visit Vitals BP 128/70 Pulse 59 Temp 97.4 F (36.3 C) (Temporal) Resp 18 Ht 1.727 m (5' 8) Wt 82.7 kg (182 lb 6.4 oz) SpO2 98% BMI 27.73 kg/m Review of Systems Constitutional: Negative. Negative for fatigue. HENT: Negative. Negative for congestion. Eyes: Negative. Negative for visual disturbance. Respiratory: Negative. Negative for cough and shortness of breath. Cardiovascular: Negative. Negative for chest pain. Gastrointestinal: Negative. Negative for abdominal pain and nausea. Genitourinary: Negative. Negative for difficulty urinating, frequency and hematuria. Musculoskeletal: Negative. Negative for myalgias. Skin: Negative for rash. Intermittent itching on Neurological: Negative. Negative for dizziness, weakness, numbness and headaches. Psychiatric/Behavioral: Negative. Negative for sleep disturbance. The patient is not nervous/anxious. Physical Exam Physical Exam Vitals and nursing note reviewed. Constitutional: General: He is not in acute distress. Eyes: Pupils: Pupils are equal, round, and reactive to light. Cardiovascular: Rate and Rhythm: Normal rate and regular rhythm. Pulmonary: Effort: Pulmonary effort is normal. Breath sounds: Normal breath sounds. Skin: General: Skin is warm and dry. Neurological: Mental Status: He is alert and oriented to person, place, and time. Psychiatric: Mood and Affect: Mood normal. Assessment & Plan Problem List Items Addressed This Visit Cardiovascular Coronary artery disease with angina pectoris Relevant Medications amLODIPine (Norvasc) 5 MG tablet clopidogrel (Plavix) 75 MG tablet ezetimibe (Zetia) 10 MG tablet metoprolol succinate (Toprol XL) 100 MG tablet XL ramipril (Altace) 10 MG capsule rosuvastatin (Crestor) 5 MG tablet vardenafil 20 MG tablet Endocrine Hyperlipidemia Relevant Medications ezetimibe (Zetia) 10 MG tablet rosuvastatin (Crestor) 5 MG tablet Other Relevant Orders LIPID PANEL W CALCULATED LDL COMPREHENSIVE METABOLIC PANEL Other Impotence of organic origin Relevant Medications vardenafil 20 MG tablet Other Visit Diagnoses Benign essential hypertension Relevant Medications amLODIPine (Norvasc) 5 MG tablet metoprolol succinate (Toprol XL) 100 MG tablet XL ramipril (Altace) 10 MG capsule Dry scalp Relevant Medications ketoconazole 2 % Shampoo shampoo Frequency of urination Relevant Medications Tamsulosin HCl 0.4 MG capsule García Peoples MD 07/17/2021, 2:50 PM documented in this encounter [facility] 02-07-2014 History of Past i llness Narrative Problem Noted Date Diagnosed Date Resolved Date A-fib 02/07/2014 07/04/2023 Overview: - New onset post-op, on and off overnight, with RVR, HD stable, IV magnesium and metoprolol given - This AM had about 10 min Afib with RVR, then converted to sinus by itself - Remaining at sinus documented as of this encounter (statuses as of 07/05/2023) [facility] Diagnosis Benign essential hypertension Essential hypertension, benign Coronary artery disease with angina pectoris, unspecified vessel or lesion type, unspecified whether [place] or transplanted heart Mixed hyperlipidemia Dry scalp Acquired keratoderma Frequency of urination Urinary frequency Impotence of organic origin [facility] Diagnosis Skin infection- Primary Unspecified local infection of skin and subcutaneous tissue [facility] Diagnosis Benign essential hypertension Essential hypertension, benign Coronary artery disease with angina pectoris, unspecified vessel or lesion type, unspecified whether [place] or transplanted heart Mixed hyperlipidemia Dry scalp Acquired keratoderma Frequency of urination Urinary frequency Impotence of organic origin [facility] Diagnosis Dysfunction of right eustachian tube- Primary Dysfunction of Eustachian tube [facility] Diagnosis Benign essential hypertension Essential hypertension, benign Coronary artery disease with angina pectoris, unspecified vessel or lesion type, unspecified whether [place] or transplanted heart Mixed hyperlipidemia [facility] Diagnosis Abdominal aortic aneurysm (AAA) without rupture, unspecified part (HCC)- Primary Thoracoabdominal aortic aneurysm (TAAA) without rupture, 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) Dissection of aorta, thoracoabdominal documented in this encounter [facility] noteNo assessment information availableWPro[facility] Work Phone: Evaluation note* Diagnosis Abdominal aortic aneurysm (AAA) without rupture, unspecified part (HCC) documented in this encounter [facility] note* Diagnosis H/O aortic aneurysm repair- Primary Other postprocedural status Dissecting aneurysm of thoracic aorta, [place]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, thoracic Coronary artery disease with angina pectoris, unspecified vessel or lesion type, unspecified whether [place] or transplanted heart (HCC) Hypertension, unspecified type documented in this encounter [facility] note* Diagnosis Dissecting aneurysm of thoracic aorta, Hank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)- Primary Dissection of aorta, thoracic S/P ascending aortic aneurysm repair Other postprocedural status H/O aortic arch replacement Personal history of surgery to heart and great vessels, presenting hazards to health documented in this encounter [facility] note* Diagnosis Encounter for screening for malignant neoplasm of colon- Primary Special screening for malignant neoplasms, colon History of colonic polyps Personal history of colonic polyps BRBPR (bright red blood per rectum) Hemorrhage of rectum and anus documented in this encounter [facility] note* Diagnosis Encounter for screening colonoscopy- Primary Special screening for malignant neoplasms, colon Encounter for screening for malignant neoplasm of colon Special screening for malignant neoplasms, colon History of colonic polyps Personal history of colonic polyps documented in this encounter [facility] note* Diagnosis History of colonic polyps Personal history of colonic polyps documented in this encounter [facility] note* Diagnosis Polyp of colon, unspecified part of colon, unspecified type- Primary documented in this encounter [facility] note* Diagnosis Sinobronchitis- Primary Unspecified sinusitis (chronic) Acute cough [facility]* Diagnosis Pain- Primary Generalized pain Pain Generalized pain [facility]* Diagnosis Pain Generalized pain documented in this encounter [facility] note* Diagnosis Foot injury, left, initial encounter- Primary Fall from stairs Foot injury, left, initial encounter Pain Generalized pain [facility]* Diagnosis Foot injury, left, initial encounter Pain Generalized pain documented in this encounter [facility] note* Diagnosis Pain Generalized pain Polyp of colon, unspecified part of colon, unspecified type documented in this encounter [facility] note* Diagnosis Subdural hematoma (HCC)- Primary Subdural hemorrhage Subdural hematoma (HCC) Subdural hemorrhage documented in this encounter [facility] note* Diagnosis Subdural hematoma (HCC)- Primary Subdural hemorrhage Brain compression (HCC) Compression of brain Subdural hematoma (HCC) Subdural hemorrhage Age-related macular degeneration, dry, 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 A-fib (HCC) Atrial fibrillation CKD (chronic kidney disease) stage 2, GFR 60-89 ml/min Chronic kidney disease, Stage II (mild) Coronary artery disease with angina pectoris, unspecified vessel or lesion type, unspecified whether [place] or transplanted heart Dissecting aneurysm of thoracic aorta, 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, thoracic DM (diabetes mellitus) (HCC) Type II or unspecified type diabetes mellitus without mention of complication, not stated as uncontrolled Hypertension Unspecified essential hypertension Mixed hyperlipidemia Brain compression (HCC) Compression of brain 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 Dizziness Dizziness and giddiness Gait instability Abnormality of gait Chronic left shoulder pain Pain in joint, shoulder region Tobacco abuse Tobacco use disorder Nicotine use disorder, F17.2 Tobacco use disorder Pneumocephalus Other conditions of brain Paroxysmal atrial fibrillation (HCC) Atrial fibrillation Subdural hematoma (HCC) Subdural hemorrhage documented in this encounter [facility] note* Diagnosis Subdural hematoma (HCC)- Primary Subdural hemorrhage Brain compression (HCC) Compression of brain Subdural hematoma (HCC) Subdural hemorrhage Age-related macular degeneration, dry, 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 A-fib (HCC) Atrial fibrillation CKD (chronic kidney disease) stage 2, GFR 60-89 ml/min Chronic kidney disease, Stage II (mild) Coronary artery disease with angina pectoris, unspecified vessel or lesion type, unspecified whether [place] or transplanted heart Dissecting aneurysm of thoracic aorta, 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, thoracic DM (diabetes mellitus) (HCC) Type II or unspecified type diabetes mellitus without mention of complication, not stated as uncontrolled Hypertension Unspecified essential hypertension Mixed hyperlipidemia Brain compression (HCC) Compression of brain 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 Dizziness Dizziness and giddiness Gait instability Abnormality of gait Chronic left shoulder pain Pain in joint, shoulder region Tobacco abuse Tobacco use disorder Nicotine use disorder, F17.2 Tobacco use disorder Pneumocephalus Other conditions of brain Paroxysmal atrial fibrillation (HCC) Atrial fibrillation Encounter for post surgical wound check- Primary documented in this encounter [facility] note* Diagnosis Subdural hematoma (HCC)- Primary Subdural hemorrhage Brain compression (HCC) Compression of brain Subdural hematoma (HCC) Subdural hemorrhage Age-related macular degeneration, dry, 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 A-fib (HCC) Atrial fibrillation CKD (chronic kidney disease) stage 2, GFR 60-89 ml/min Chronic kidney disease, Stage II (mild) Coronary artery disease with angina pectoris, unspecified vessel or lesion type, unspecified whether [place] or transplanted heart Dissecting aneurysm of thoracic aorta, 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, thoracic DM (diabetes mellitus) (HCC) Type II or unspecified type diabetes mellitus without mention of complication, not stated as uncontrolled Hypertension Unspecified essential hypertension Mixed hyperlipidemia Brain compression (HCC) Compression of brain 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 Dizziness Dizziness and giddiness Gait instability Abnormality of gait Chronic left shoulder pain Pain in joint, shoulder region Tobacco abuse Tobacco use disorder Nicotine use disorder, F17.2 Tobacco use disorder Pneumocephalus Other conditions of brain Paroxysmal atrial fibrillation (HCC) Atrial fibrillation Subdural hematoma (HCC) Subdural hemorrhage documented in this encounter [facility] note* Diagnosis Subdural hematoma (HCC)- Primary Subdural hemorrhage Brain compression (HCC) Compression of brain Subdural hematoma (HCC) Subdural hemorrhage Age-related macular degeneration, dry, 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 A-fib (HCC) Atrial fibrillation CKD (chronic kidney disease) stage 2, GFR 60-89 ml/min Chronic kidney disease, Stage II (mild) Coronary artery disease with angina pectoris, unspecified vessel or lesion type, unspecified whether [place] or transplanted heart Dissecting aneurysm of thoracic aorta, 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, thoracic DM (diabetes mellitus) (HCC) Type II or unspecified type diabetes mellitus without mention of complication, not stated as uncontrolled Hypertension Unspecified essential hypertension Mixed hyperlipidemia Brain compression (HCC) Compression of brain 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 Dizziness Dizziness and giddiness Gait instability Abnormality of gait Chronic left shoulder pain Pain in joint, shoulder region Tobacco abuse Tobacco use disorder Nicotine use disorder, F17.2 Tobacco use disorder Pneumocephalus Other conditions of brain Paroxysmal atrial fibrillation (HCC) Atrial fibrillation Subdural hematoma (HCC)- Primary Subdural hemorrhage [facility]* Diagnosis Brain compression (HCC) Compression of brain Subdural hematoma (HCC) Subdural hemorrhage Age-related macular degeneration, dry, 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 A-fib (HCC) Atrial fibrillation CKD (chronic kidney disease) stage 2, GFR 60-89 ml/min Chronic kidney disease, Stage II (mild) Dissecting aneurysm of thoracic aorta, 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, thoracic DM (diabetes mellitus) (HCC) Type II or unspecified type diabetes mellitus without mention of complication, not stated as uncontrolled Brain compression (HCC) Compression of brain 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 Dizziness Dizziness and giddiness Gait instability Abnormality of gait Chronic left shoulder pain Pain in joint, shoulder region Tobacco abuse Tobacco use disorder Nicotine use disorder, F17.2 Tobacco use disorder Pneumocephalus Other conditions of brain Seizure-like activity (HCC)- Primary Other convulsions Subdural hematoma (HCC) Subdural hemorrhage Fall, subsequent encounter Injury of head, subsequent encounter SDH (subdural hematoma) (HCC) Subdural hemorrhage SDH (subdural hematoma) (HCC) Subdural hemorrhage TBI (traumatic brain injury) (HCC) Intracranial injury of other and unspecified nature, without mention of open intracranial wound, unspecified state of consciousness Poorly controlled diabetes mellitus (HCC) Type II or unspecified type diabetes mellitus without mention of complication, not stated as uncontrolled Hypertension Unspecified essential hypertension Paroxysmal atrial fibrillation (HCC) Atrial fibrillation Coronary artery disease with angina pectoris, unspecified vessel or lesion type, unspecified whether [place] or transplanted heart Fall Unspecified fall 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 Subdural hematoma (HCC)- Primary Subdural hemorrhage [facility]* Diagnosis Brain compression (HCC) Compression of brain Subdural hematoma (HCC) Subdural hemorrhage Age-related macular degeneration, dry, 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 A-fib (HCC) Atrial fibrillation CKD (chronic kidney disease) stage 2, GFR 60-89 ml/min Chronic kidney disease, Stage II (mild) Dissecting aneurysm of thoracic aorta, 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, thoracic DM (diabetes mellitus) (HCC) Type II or unspecified type diabetes mellitus without mention of complication, not stated as uncontrolled Brain compression (HCC) Compression of brain 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 Dizziness Dizziness and giddiness Gait instability Abnormality of gait Chronic left shoulder pain Pain in joint, shoulder region Tobacco abuse Tobacco use disorder Nicotine use disorder, F17.2 Tobacco use disorder Pneumocephalus Other conditions of brain Seizure-like activity (HCC)- Primary Other convulsions Subdural hematoma (HCC) Subdural hemorrhage Fall, subsequent encounter Injury of head, subsequent encounter SDH (subdural hematoma) (HCC) Subdural hemorrhage SDH (subdural hematoma) (HCC) Subdural hemorrhage TBI (traumatic brain injury) (HCC) Intracranial injury of other and unspecified nature, without mention of open intracranial wound, unspecified state of consciousness Poorly controlled diabetes mellitus (HCC) Type II or unspecified type diabetes mellitus without mention of complication, not stated as uncontrolled Hypertension Unspecified essential hypertension Paroxysmal atrial fibrillation (HCC) Atrial fibrillation Coronary artery disease with angina pectoris, unspecified vessel or lesion type, unspecified whether [place] or transplanted heart Fall Unspecified fall 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 Subdural hematoma (HCC) Subdural hemorrhage [facility]* Diagnosis Brain compression (HCC) Compression of brain Subdural hematoma (HCC) Subdural hemorrhage Age-related macular degeneration, dry, 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 A-fib (HCC) Atrial fibrillation CKD (chronic kidney disease) stage 2, GFR 60-89 ml/min Chronic kidney disease, Stage II (mild) Dissecting aneurysm of thoracic aorta, [place]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, thoracic DM (diabetes mellitus) (HCC) Type II or unspecified type diabetes mellitus without mention of complication, not stated as uncontrolled Brain compression (HCC) Compression of brain 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 Dizziness Dizziness and giddiness Gait instability Abnormality of gait Chronic left shoulder pain Pain in joint, shoulder region Tobacco abuse Tobacco use disorder Nicotine use disorder, F17.2 Tobacco use disorder Pneumocephalus Other conditions of brain Seizure-like activity (HCC)- Primary Other convulsions Subdural hematoma (HCC) Subdural hemorrhage Fall, subsequent encounter Injury of head, subsequent encounter SDH (subdural hematoma) (HCC) Subdural hemorrhage SDH (subdural hematoma) (HCC) Subdural hemorrhage TBI (traumatic brain injury) (HCC) Intracranial injury of other and unspecified nature, without mention of open intracranial wound, unspecified state of consciousness Poorly controlled diabetes mellitus (HCC) Type II or unspecified type diabetes mellitus without mention of complication, not stated as uncontrolled Hypertension Unspecified essential hypertension Paroxysmal atrial fibrillation (HCC) Atrial fibrillation Coronary artery disease with angina pectoris, unspecified vessel or lesion type, unspecified whether [place] or transplanted heart Fall Unspecified fall 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 SDH (subdural hematoma) (HCC)- Primary Subdural hemorrhage 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 [facility]* Diagnosis Brain compression (HCC) Compression of brain Subdural hematoma (HCC) Subdural hemorrhage Age-related macular degeneration, dry, 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 A-fib (HCC) Atrial fibrillation CKD (chronic kidney disease) stage 2, GFR 60-89 ml/min Chronic kidney disease, Stage II (mild) Dissecting aneurysm of thoracic aorta, 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, thoracic DM (diabetes mellitus) (HCC) Type II or unspecified type diabetes mellitus without mention of complication, not stated as uncontrolled Brain compression (HCC) Compression of brain 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 Dizziness Dizziness and giddiness Gait instability Abnormality of gait Chronic left shoulder pain Pain in joint, shoulder region Tobacco abuse Tobacco use disorder Nicotine use disorder, F17.2 Tobacco use disorder Pneumocephalus Other conditions of brain Seizure-like activity (HCC)- Primary Other convulsions Subdural hematoma (HCC) Subdural hemorrhage Fall, subsequent encounter Injury of head, subsequent encounter SDH (subdural hematoma) (HCC) Subdural hemorrhage SDH (subdural hematoma) (HCC) Subdural hemorrhage TBI (traumatic brain injury) (HCC) Intracranial injury of other and unspecified nature, without mention of open intracranial wound, unspecified state of consciousness Poorly controlled diabetes mellitus (HCC) Type II or unspecified type diabetes mellitus without mention of complication, not stated as uncontrolled Hypertension Unspecified essential hypertension Paroxysmal atrial fibrillation (HCC) Atrial fibrillation Coronary artery disease with angina pectoris, unspecified vessel or lesion type, unspecified whether [place] or transplanted heart Fall Unspecified fall 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 SDH (subdural hematoma) (HCC)- Primary Subdural hemorrhage 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 [facility]* Diagnosis Subdural hematoma (HCC)- Primary Subdural hemorrhage Brain compression (HCC) Compression of brain Age-related macular degeneration, dry, 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 A-fib (HCC) Atrial fibrillation CKD (chronic kidney disease) stage 2, GFR 60-89 ml/min Chronic kidney disease, Stage II (mild) Dissecting aneurysm of thoracic aorta, 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, thoracic DM (diabetes mellitus) (HCC) Type II or unspecified type diabetes mellitus without mention of complication, not stated as uncontrolled Brain compression (HCC) Compression of brain 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 Dizziness Dizziness and giddiness Gait instability Abnormality of gait Chronic left shoulder pain Pain in joint, shoulder region Tobacco abuse Tobacco use disorder Nicotine use disorder, F17.2 Tobacco use disorder Pneumocephalus Other conditions of brain Subdural hematoma (HCC) Subdural hemorrhage Fall, subsequent encounter Injury of head, subsequent encounter SDH (subdural hematoma) (HCC) Subdural hemorrhage TBI (traumatic brain injury) (HCC) Intracranial injury of other and unspecified nature, without mention of open intracranial wound, unspecified state of consciousness Poorly controlled diabetes mellitus (HCC) Type II or unspecified type diabetes mellitus without mention of complication, not stated as uncontrolled Hypertension Unspecified essential hypertension Paroxysmal atrial fibrillation (HCC) Atrial fibrillation Coronary artery disease with angina pectoris, unspecified vessel or lesion type, unspecified whether [place] or transplanted heart Fall Unspecified fall 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 Subdural hematoma (HCC)- Primary Subdural hemorrhage Abnormality of gait Impaired functional mobility, balance, gait, and endurance [facility]* Diagnosis Subdural hematoma (HCC)- Primary Subdural hemorrhage Brain compression (HCC) Compression of brain Age-related macular degeneration, dry, 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 A-fib (HCC) Atrial fibrillation CKD (chronic kidney disease) stage 2, GFR 60-89 ml/min Chronic kidney disease, Stage II (mild) Dissecting aneurysm of thoracic aorta, 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, thoracic DM (diabetes mellitus) (HCC) Type II or unspecified type diabetes mellitus without mention of complication, not stated as uncontrolled Brain compression (HCC) Compression of brain 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 Dizziness Dizziness and giddiness Gait instability Abnormality of gait Chronic left shoulder pain Pain in joint, shoulder region Tobacco abuse Tobacco use disorder Nicotine use disorder, F17.2 Tobacco use disorder Pneumocephalus Other conditions of brain Subdural hematoma (HCC) Subdural hemorrhage Fall, subsequent encounter Injury of head, subsequent encounter SDH (subdural hematoma) (HCC) Subdural hemorrhage TBI (traumatic brain injury) (HCC) Intracranial injury of other and unspecified nature, without mention of open intracranial wound, unspecified state of consciousness Poorly controlled diabetes mellitus (HCC) Type II or unspecified type diabetes mellitus without mention of complication, not stated as uncontrolled Hypertension Unspecified essential hypertension Paroxysmal atrial fibrillation (HCC) Atrial fibrillation Coronary artery disease with angina pectoris, unspecified vessel or lesion type, unspecified whether [place] or transplanted heart Fall Unspecified fall 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 Subdural hematoma (HCC)- Primary Subdural hemorrhage History of craniotomy Other postprocedural status [facility]* Diagnosis Subdural hematoma (HCC)- Primary Subdural hemorrhage Brain compression (HCC) Compression of brain Age-related macular degeneration, dry, 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 A-fib (HCC) Atrial fibrillation CKD (chronic kidney disease) stage 2, GFR 60-89 ml/min Chronic kidney disease, Stage II (mild) Dissecting aneurysm of thoracic aorta, 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, thoracic DM (diabetes mellitus) (HCC) Type II or unspecified type diabetes mellitus without mention of complication, not stated as uncontrolled Brain compression (HCC) Compression of brain 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 Dizziness Dizziness and giddiness Gait instability Abnormality of gait Chronic left shoulder pain Pain in joint, shoulder region Tobacco abuse Tobacco use disorder Nicotine use disorder, F17.2 Tobacco use disorder Pneumocephalus Other conditions of brain Subdural hematoma (HCC) Subdural hemorrhage Fall, subsequent encounter Injury of head, subsequent encounter SDH (subdural hematoma) (HCC) Subdural hemorrhage TBI (traumatic brain injury) (HCC) Intracranial injury of other and unspecified nature, without mention of open intracranial wound, unspecified state of consciousness Poorly controlled diabetes mellitus (HCC) Type II or unspecified type diabetes mellitus without mention of complication, not stated as uncontrolled Hypertension Unspecified essential hypertension Paroxysmal atrial fibrillation (HCC) Atrial fibrillation Coronary artery disease with angina pectoris, unspecified vessel or lesion type, unspecified whether [place] or transplanted heart Fall Unspecified fall 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 SDH (subdural hematoma) (HCC)- Primary Subdural hemorrhage 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 documented in this encounter [facility] note* Diagnosis Subdural hematoma (HCC)- Primary Subdural hemorrhage Brain compression (HCC) Compression of brain Age-related macular degeneration, dry, 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 A-fib (HCC) Atrial fibrillation CKD (chronic kidney disease) stage 2, GFR 60-89 ml/min Chronic kidney disease, Stage II (mild) Dissecting aneurysm of thoracic aorta, 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, thoracic DM (diabetes mellitus) (HCC) Type II or unspecified type diabetes mellitus without mention of complication, not stated as uncontrolled Brain compression (HCC) Compression of brain 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 Dizziness Dizziness and giddiness Gait instability Abnormality of gait Chronic left shoulder pain Pain in joint, shoulder region Tobacco abuse Tobacco use disorder Nicotine use disorder, F17.2 Tobacco use disorder Pneumocephalus Other conditions of brain Subdural hematoma (HCC) Subdural hemorrhage Fall, subsequent encounter Injury of head, subsequent encounter SDH (subdural hematoma) (HCC) Subdural hemorrhage TBI (traumatic brain injury) (HCC) Intracranial injury of other and unspecified nature, without mention of open intracranial wound, unspecified state of consciousness Poorly controlled diabetes mellitus (HCC) Type II or unspecified type diabetes mellitus without mention of complication, not stated as uncontrolled Hypertension Unspecified essential hypertension Paroxysmal atrial fibrillation (HCC) Atrial fibrillation Coronary artery disease with angina pectoris, unspecified vessel or lesion type, unspecified whether [place] or transplanted heart Fall Unspecified fall 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 Subdural hematoma (HCC)- Primary Subdural hemorrhage documented in this encounter [facility] note* Diagnosis Subdural hematoma (HCC)- Primary Subdural hemorrhage Brain compression (HCC) Compression of brain Age-related macular degeneration, dry, 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 A-fib (HCC) Atrial fibrillation CKD (chronic kidney disease) stage 2, GFR 60-89 ml/min Chronic kidney disease, Stage II (mild) Dissecting aneurysm of thoracic aorta, 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, thoracic DM (diabetes mellitus) (HCC) Type II or unspecified type diabetes mellitus without mention of complication, not stated as uncontrolled Brain compression (HCC) Compression of brain 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 Dizziness Dizziness and giddiness Gait instability Abnormality of gait Chronic left shoulder pain Pain in joint, shoulder region Tobacco abuse Tobacco use disorder Nicotine use disorder, F17.2 Tobacco use disorder Pneumocephalus Other conditions of brain Subdural hematoma (HCC) Subdural hemorrhage Fall, subsequent encounter Injury of head, subsequent encounter SDH (subdural hematoma) (HCC) Subdural hemorrhage TBI (traumatic brain injury) (HCC) Intracranial injury of other and unspecified nature, without mention of open intracranial wound, unspecified state of consciousness Poorly controlled diabetes mellitus (HCC) Type II or unspecified type diabetes mellitus without mention of complication, not stated as uncontrolled Hypertension Unspecified essential hypertension Paroxysmal atrial fibrillation (HCC) Atrial fibrillation Coronary artery disease with angina pectoris, unspecified vessel or lesion type, unspecified whether [place] or transplanted heart Fall Unspecified fall 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 Subdural hematoma (HCC) Subdural hemorrhage [facility] Diagnosis Subdural hematoma (HCC)- Primary Subdural hemorrhage Brain compression (HCC) Compression of brain Age-related macular degeneration, dry, 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 A-fib (HCC) Atrial fibrillation CKD (chronic kidney disease) stage 2, GFR 60-89 ml/min Chronic kidney disease, Stage II (mild) Dissecting aneurysm of thoracic aorta, 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, thoracic DM (diabetes mellitus) (HCC) Type II or unspecified type diabetes mellitus without mention of complication, not stated as uncontrolled Brain compression (HCC) Compression of brain 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 Dizziness Dizziness and giddiness Gait instability Abnormality of gait Chronic left shoulder pain Pain in joint, shoulder region Tobacco abuse Tobacco use disorder Nicotine use disorder, F17.2 Tobacco use disorder Pneumocephalus Other conditions of brain Subdural hematoma (HCC) Subdural hemorrhage Fall, subsequent encounter Injury of head, subsequent encounter SDH (subdural hematoma) (HCC) Subdural hemorrhage TBI (traumatic brain injury) (HCC) Intracranial injury of other and unspecified nature, without mention of open intracranial wound, unspecified state of consciousness Poorly controlled diabetes mellitus (HCC) Type II or unspecified type diabetes mellitus without mention of complication, not stated as uncontrolled Hypertension Unspecified essential hypertension Paroxysmal atrial fibrillation (HCC) Atrial fibrillation Coronary artery disease with angina pectoris, unspecified vessel or lesion type, unspecified whether [place] or transplanted heart Fall Unspecified fall 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 SDH (subdural hematoma) (HCC)- Primary Subdural hemorrhage 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 [facility]* Diagnosis Subdural hematoma (HCC)- Primary Subdural hemorrhage Brain compression (HCC) Compression of brain Age-related macular degeneration, dry, 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 A-fib (HCC) Atrial fibrillation CKD (chronic kidney disease) stage 2, GFR 60-89 ml/min Chronic kidney disease, Stage II (mild) Dissecting aneurysm of thoracic aorta, 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, thoracic DM (diabetes mellitus) (HCC) Type II or unspecified type diabetes mellitus without mention of complication, not stated as uncontrolled Brain compression (HCC) Compression of brain 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 Dizziness Dizziness and giddiness Gait instability Abnormality of gait Chronic left shoulder pain Pain in joint, shoulder region Tobacco abuse Tobacco use disorder Nicotine use disorder, F17.2 Tobacco use disorder Pneumocephalus Other conditions of brain Subdural hematoma (HCC) Subdural hemorrhage Fall, subsequent encounter Injury of head, subsequent encounter SDH (subdural hematoma) (HCC) Subdural hemorrhage TBI (traumatic brain injury) (HCC) Intracranial injury of other and unspecified nature, without mention of open intracranial wound, unspecified state of consciousness Poorly controlled diabetes mellitus (HCC) Type II or unspecified type diabetes mellitus without mention of complication, not stated as uncontrolled Hypertension Unspecified essential hypertension Paroxysmal atrial fibrillation (HCC) Atrial fibrillation Coronary artery disease with angina pectoris, unspecified vessel or lesion type, unspecified whether [place] or transplanted heart Fall Unspecified fall 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 Subdural hematoma (HCC)- Primary Subdural hemorrhage [facility] Procedure (Routine) - Authorized Specialty Diagnoses / Procedures [facility] To [facility] [place] Diagnoses Abdominal aortic aneurysm (AAA) without rupture, unspecified part (HCC) Thoracoabdominal aortic aneurysm (TAAA) without rupture, 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) Procedures ECHO ECHO TTHRC R-T 2D W/WOM-MODE COMPL SPEC&COLR D Chris Recinos MD [address] [place] [address] [facility] [place] [address] Referral ID Status Reason Start Date Expiration Date Visits Requested Visits Authorized [id number] Authorized Auto-Generat ed Referral 11/23/2022 11/23/2023 1 1 * MRI/CT (Routine) - Authorized Specialty Diagnoses / Procedures [facility] Referred To Contact CT [facility] Diagnoses Abdominal aortic aneurysm (AAA) without rupture, unspecified part (HCC) Procedures CTA ABD/PEL WO/W IVCON CT ANGIO ABD&PLVIS CNTRST MTRL [place] [address] [place] [address] Ct Imaging [place] [address] Referral ID Status Reason Start Date Expiration Date Visits Requested Visits Authorized [id number] Authorized Auto-Generat ed Referral 03/27/2023 12/23/2023 1 1 * MRI/CT (Routine) - Authorized Specialty Diagnoses / Procedures [facility] Referred To Contact CT [facility] Diagnoses Abdominal aortic aneurysm (AAA) without rupture, unspecified part (HCC) Procedures CTA CHEST (NONGATED) WO/W IVCON CT ANGIOGRAPHY CHEST W/CONTRAST/NONCONTRAST Chris Recinos MD [address] [place] [address] [address] [place] [id number] Referral ID Status Reason Start Date Expiration Date Visits Requested Visits Authorized [id number] Authorized Auto-Generat ed Referral 03/27/2023 12/23/2023 1 1 [facility] for referral (narrative)* Outpatient Procedure (Routine) - Authorized Specialty Diagnoses / Procedures Referred By Contac t Referred To Contact [facility] Diagnoses Encounter for screening for malignant neoplasm of colon History of colonic polyps Procedures COLONOSCOPY SCREENING COLONOSCOPY FLX DX W/COLLJ SPEC WHEN Eva Montano APRN.EARLY CHILDHOOD ASSISTANT [address] [place] [address] [facility] [address] [place] [address] Referral ID Status Reason Start Date Expiration Date Visits Requested Visits Authorized [id number] Authorized Auto-Generat ed Referral 12/23/2023 12/04/2024 1 1 [facility] for referral (narrative)* Outpatient Procedure (Routine) - Pending Review Specialty Diagnoses / Procedures Referred By Contac t Referred To Contact [facility] Diagnoses Polyp of colon, unspecified part of colon, unspecified type Procedures COLONOSCOPY DIAGNOSTIC COLONOSCOPY FLX DX W/COLLJ SPEC WHEN Fritz Liz MD [address] [place] [address] [facility] [place] [address] Referral ID Status Reason Start Date Expiration Date Visits Requested Visits Authorized [id number] Pending Review Auto-Generat ed Referral 01/27/2025 1 1 [facility] for referral (narrative)* Outpatient Procedure (Routine) - New Request Specialty Diagnoses / Procedures Referred By Contac t Referred To Contact [facility] Diagnoses Polyp of colon, unspecified part of colon, unspecified type Procedures COLONOSCOPY DIAGNOSTIC COLONOSCOPY FLX DX W/COLLJ SPEC WHEN Fritz Liz MD [address] [place] [address] [facility] [address] [place] [address] Referral ID Status Reason Start Date Expiration Date Visits Requested Visits Authorized [id number] New Request Auto-Generat ed Referral 02/05/2025 1 1 [facility] for referral (narrative)No reason for referral information availableWPro[facility] Work Phone: Reason for visit Narrative* Outpatient Procedure (Routine) - Closed Specialty Diagnoses / Procedures Referred By Blessing sainz Referred To Contact [facility] Diagnoses Encounter for screening for malignant neoplasm of colon History of colonic polyps Procedures COLONOSCOPY SCREENING COLONOSCOPY FLX DX W/COLLJ SPEC WHEN Eva Montano APRN.EARLY CHILDHOOD ASSISTANT [address] [place] [address] [facility] [address] [place] [address] Referral ID Status Reason Start Date Expiration Date V isits Requested Visits Authorized [id number] Closed Auto-Generate d Referral 12/23/2023 12/04/2024 1 1 [facility] for visit Narrative* Diagnostic Procedure Only (Urgent) - Closed Specialty Diagnoses / Procedures Referred By Blessing t Referred To Contact XR IMAGING Diagnoses Pain Procedures XR KNEE GENERAL 4V AP BOTH/PA BOTH/LAT/MERC LEFT RADIOLOGIC EXAM KNEE COMPLETE 4/MORE VIEWS aSra Mcdaniel APRN.EARLY CHILDHOOD ASSISTANT [address] [place] [address] Phone: tel: fax: [place] [address] Referral ID Status Reason Start Date Expiration Date V isits Requested Visits Authorized [id number] Closed Auto-Generate d Referral 06/23/2024 07/23/2025 1 1 [facility] for visit Narrative* Diagnostic Procedure Only (Urgent) - Closed Specialty Diagnoses / Procedures Referred By Contac t Referred To Contact XR IMAGING Diagnoses Foot injury, left, initial encounter Procedures XR FOOT GENERAL 3V AP/LAT/OBL LEFT RADEX FOOT COMPLETE MINIMUM 3 VIEWS Jennifer Pagan, SUPERVISOR [employer].EARLY CHILDHOOD ASSISTANT [address] [place] [address] Phone: tel: fax: [place] [address] Referral ID Status Reason Start Date Expiration Date V isits Requested Visits Authorized [id number] Closed Auto-Generate d Referral 06/27/2024 07/27/2025 1 1 [facility] for visit Narrative* Outpatient Procedure (Routine) - Closed Specialty Diagnoses / Procedures Referred By Contac t Referred To Contact ENDOSCOPY Diagnoses Polyp of colon, unspecified part of colon, unspecified type Procedures COLONOSCOPY DIAGNOSTIC COLONOSCOPY FLX DX W/COLLJ SPEC WHEN Fritz Liz MD [address] [place] [address] Phone: tel: fax: Gastroenterology [address] [place] [address] Phone: tel: Referral ID Status Reason Start Date Expiration Date V isits Requested Visits Authorized [id number] Closed Auto-Generate d Referral 06/29/2024 01/27/2025 1 1 [facility] for visit Narrative* MRI/CT (Routine) - Closed Specialty Diagnoses / Procedures Referred By Contac t Referred To Contact CT IMAGING Diagnoses Subdural hematoma (HCC) Procedures CT BRAIN WO IVCON CT HEAD/BRAIN W/O CONTRAST MATERIAL Max Tang, SUPERVISOR [employer].EARLY CHILDHOOD ASSISTANT [address] [address] Phone: tel: fax: [place] [address] Referral ID Status Reason Start Date Expiration Date V isits Requested Visits Authorized [id number] Closed Auto-Generate d Referral 08/13/2024 09/12/2025 1 1 [facility] for visit Narrative* MRI/CT (Routine) - Closed Specialty Diagnoses / Procedures Referred By Contac t Referred To Contact CT IMAGING Diagnoses Subdural hematoma (HCC) Procedures CT BRAIN WO IVCON CT HEAD/BRAIN W/O CONTRAST MATERIAL Fegatelli, Marni, SUPERVISOR [employer]MENT.EARLY CHILDHOOD ASSISTANT [address] [facility] [place] [address] Phone: tel: fax: [place] [address] Referral ID Status Reason Start Date Expiration Date V isits Requested Visits Authorized [id number] Closed Auto-Generate d Referral 08/27/2024 09/26/2025 1 1 [facility] for visit Narrative* Auth/Cert - New Request Specialty Diagnoses / Procedures Referred By Blessing sainz Referred To Contact [facility] ALBERTO HOWARD [address] [facility] [address] Referral ID Status Reason Start Date Expiration Date V isits Requested Visits Authorized New Request 09/07/2024 11/06/2024 [facility] for visit Narrative* MRI/CT (Routine) - Closed Specialty Diagnoses / Procedures Referred By Blessing sainz Referred To Contact CT IMAGING Diagnoses Subdural hematoma (HCC) Procedures CT BRAIN WO IVCON CT HEAD/BRAIN W/O CONTRAST MATERIAL Marni Catherine, SUPERVISOR [employer]MENT.EARLY CHILDHOOD ASSISTANT [address] [facility] [address] [address] [facility] [address] Phone: tel: fax: [place] [address] Referral ID Status Reason Start Date Expiration Date V isits Requested Visits Authorized [id number] Closed Auto-Generate d Referral 09/17/2024 10/17/2025 1 1 [facility] Diagnosis Status post total bilateral knee replacement - Primary Diagnosis Status post total bilateral knee replacement - Primary Diagnosis Primary osteoarthritis of lourdes th knees - Primary Diagnosis Status post total bilateral knee replacement - Primary Diagnosis Benign essential hypertension- Primary Essential hypertension, benign Mixed hyperlipidemia Osteoarthritis of both knees, unspecified osteoarthritis type Summary Purpose Family History No Family History Records FoundNo Family History Records FoundNo Family History Records FoundNo Family History Records FoundNo Family History Records FoundNo Family History Records FoundNo Family History Records FoundNo Family History Records FoundNo Family History Records Found Advance Directives No Advanced Directives Records FoundDocuments on File Type Date Recorded Patient Bible Teacher Expl anation Advance Directive(s) 10/22/2016 1:06 PM Date Activated Date Inactivated Comments 08/09/2024 9:34 PM 08/13/2024 8:34 PM Question Answer Comments Full Code Order Discussed With: Patient Documents on File Type Date Recorded Patient Bible Teacher Expl anation Advance Directive(s) 10/22/2016 1:06 PM Advance Directive Response Recorded Date/ Time Name of Medical Power of Clerk Supervisor Angelita medina January 20, 2023 3:29pm Living Will Yes January 20 3:29pm Power of Clerk Supervisor Yes January 20, 2023 3:29pm Advance Directive Response Recorded Date/ Time Living Will Yes January 20 4:29pm Power of Clerk Supervisor Yes January 20, 2023 4:29pm Date Activated Date Inactivated Comments 08/09/2024 9:34 PM 08/13/2024 8:34 PM Question Answer Comments Full Code Order Discussed With: Patient Date Activated Date Inactivated Comments 08/31/2024 2:02 AM Question Answer Comments Full Code Order Discussed With: Patient and Surr ogate Decision Maker Date Activated Date Inactivated Comments 08/09/2024 9:34 PM 08/13/2024 8:34 PM Question Answer Comments Full Code Order Discussed With: Patient Date Activated Date Inactivated Comments 08/31/2024 2:02 AM 09/06/2024 5:46 PM Date Activated Date Inactivated Comments 08/31/2024 2:02 AM 09/06/2024 5:46 PM Question Answer Comments Full Code Order Discussed With: Patient and Surr ogate Decision Maker Date Activated Date Inactivated Comments 08/09/2024 9:34 PM 08/13/2024 8:34 PM Question Answer Comments Full Code Order Discussed With: Patient History of Present Illness * Carla Enrique, SUPERVISOR [employer]-EARLY CHILDHOOD ASSISTANT - 04/14/2018 2:10 PM EST Formatting of this note may be different from the original. History of Present Illness Chief Complaint Patient presents with Pre-op Exam For Dr. Ace Charles (sp). Out patient eye surgery on 04/17/18 for dislocated lens fragments. Carlito is a 78 yr old male here today for pre-op assessment prior to having Eye surgery on 04/17/[address] Charles at [facility]. Patient states he was instructed this morning (by his atm manager, Dr. Whitaker) to hold the plavix and ASA. He has hx of HTN, well controlled on therapy. Hx of hyperlipidemia, well controlled on current medication therapy. Patient denies any issues with anesthesia in the past. He denies any family members with issues with anesthesia. Review of Systems Constitutional: Negative. Negative for chills, fatigue, fever and unexpected weight change. HENT: Negative. Eyes: Positive for visual disturbance (right eye blurry, having surgery this week). Negative for pain and redness. Respiratory: Negative. Negative for cough, chest tightness, shortness of breath and wheezing. Cardiovascular: Negative. Negative for chest pain, palpitations and leg swelling. Gastrointestinal: Negative. Negative for constipation, diarrhea, nausea and vomiting. Endocrine: Negative. Musculoskeletal: Negative. Skin: Negative. Neurological: Negative for headaches. 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 Lung nodule Neoplasm of uncertain behavior Osteoarthritis 09/27/2003 Paresthesia and pain of extremity Renal disease kidney stones Screening for malignant neoplasm of the rectum Outpatient Medications Prior to Visit Medication Sig Dispense Refill amLODIPine (NORVASC) 5 MG Tab tablet Take 1 tablet by mouth daily. 90 tablet 1 aspirin (ASPIRIN CHILDRENS) 81 MG Chew Tab take 81 mg by mouth daily.. clopidogrel (PLAVIX) 75 MG Tab tablet Take 1 tablet by mouth daily. 90 tablet 1 ezetimibe (ZETIA) 10 MG Tab per tablet Take 1 tablet by mouth at bedtime. 90 tablet 1 ketoconazole 2 % Shampoo USE DAILY NEEDED, USE LATHER TO WASH FACE AND EARS 9 metoprolol succinate (TOPROL XL) 100 MG tablet XL Take 1 tablet by mouth daily. 90 tablet 1 ramipril (ALTACE) 10 MG Cap capsule Take 1 capsule by mouth daily. 90 capsule 1 rosuvastatin (CRESTOR) 5 MG Tab per tablet Take 1 tablet by mouth daily. 90 tablet 1 sildenafil citrate (VIAGRA) 100 MG Tab tablet Take 1 tablet by mouth as needed. 30 tablet 3 Tamsulosin HCl 0.4 MG Cap capsule Take 1 capsule by mouth daily. 90 capsule 1 traMADol 50 MG Tab take 100 mg by mouth 3 times daily as needed.. Reported on 07/16/2016 ALPRAZolam 1 MG Tab take 1 mg by mouth.. Reported on 07/16/2016 No facility-administered medications prior to visit. Allergies Allergen Reactions Celebrex [Celecoxib] Itching Lipitor [Atorvastatin] Elevated enzymes Social History Social History Marital status: Spouse name: N/A Number of children: N/A Years of education: N/A Occupational History Not on file. Social History Main Topics Smoking status: Former Smoker Types: Pipe Smokeless tobacco: Never Used Alcohol use No Drug use: No Sexual activity: Not on file Other Topics Concern Not on file Social History Narrative No narrative on file Vitals: Blood pressure 118/60, pulse 51, temperature 96.6 F (35.9 C), temperature source Temporal, resp. rate 16, height 1.74 m (5' 8.5), weight 82.6 kg (182 lb 3.2 oz), SpO2 97 %. Physical Exam Constitutional: He is oriented to person, place, and time. HENT: Head: Normocephalic and atraumatic. Right Ear: External ear normal. Left Ear: External ear normal. Nose: Nose normal. Mouth/Throat: Oropharynx is clear and moist. No oropharyngeal exudate. Eyes: Pupils are equal, round, and reactive to light. Conjunctivae and EOM are normal. Neck: Normal range of motion. Neck supple. No JVD present. No thyromegaly present. Cardiovascular: Normal rate, regular rhythm, normal heart sounds and intact distal pulses. Exam reveals no gallop and no friction rub. No murmur heard. Pulmonary/Chest: Effort normal and breath sounds normal. He has no wheezes. He has no rales. He exhibits no tenderness. Abdominal: Soft. Bowel sounds are normal. There is no tenderness. There is no guarding. Musculoskeletal: Normal range of motion. Lymphadenopathy: He has no cervical adenopathy. Neurological: He is alert and oriented to person, place, and time. Skin: Skin is warm and dry. Psychiatric: Judgment normal. Vitals reviewed. Neurologic Exam Mental Status Oriented to person, place, and time. Cranial Nerves CN III, IV, Pupils are equal, round, and reactive to light. Extraocular motions are normal. Assessment and Plan 1. Benign essential hypertension Stable on current medication regimen. Will continue as prescribed. Questions answered. 2. Mixed hyperlipidemia Stable on current medication regimen. Will continue as prescribed. Questions answered. Mr Chatterjee is medically optimized for the upcoming eye surgery at low risk overall. * Mariedeshaun Carlo, KEREN - 04/14/2018 2:10 PM EST Formatting of this note may be different from the original. Nurse Note: Review of Systems Constitutional: Negative. HENT: Negative. Respiratory: Negative. Cardiovascular: Negative. Gastrointestinal: Negative. Neurological: Negative for headaches. Nursing Assessment: Physical Exam Patient here today for a pre op exam for out patient eye surgery for dislocated lens fragments. This is being done at [facility],( [facility] Patient states he was instructed this morning to hold the plavix and ASA. Patient denies any issues with anesthesia in the past. Hedenies any family members with issues with anesthesia. He is scheduled for surgery on 04/17/18 in this encounter Chief Complaint and Reason for Visit Chief Complaint fall Reason for Referral Specialty Diagnoses / Procedures Referred By Blessing t Referred To Contact CT IMAGING Diagnoses Abdominal aortic aneurysm (AAA) without rupture, unspecified part (HCC) Procedures CTA ABD/PEL WO/W IVCON CT ANGIO ABD&PLVIS CNTRST MTRL W/WO CNTRST IMGES Chris Recinos MD [id number] [place] [address] Referral ID Status Reason Start Date Expiration Date V isits Requested Visits Authorized [id number] Closed Auto-Generate d Referral 03/27/2023 12/23/2023 1 1 Specialty Diagnoses / Procedures Referred By Contac t Referred To Contact CT IMAGING Diagnoses Abdominal aortic aneurysm (AAA) without rupture, unspecified part (HCC) Procedures CTA CHEST (NONGATED) WO/W IVCON CT ANGIOGRAPHY CHEST W/CONTRAST/NONCONTRAST Chris Recinos MD [address] [place] [address] Ct Imaging [place] [address] Referral ID Status Reason Start Date Expiration Date V isits Requested Visits Authorized [id number] Closed Auto-Generate d Referral 03/27/2023 12/23/2023 1 1 Specialty Diagnoses / Procedures Referred By Contac t Referred To [facility] Procedures CARDIOVASCULAR MEDICINE OP FOLLOW UP APPT ORDER JulianneLit DO [address] [facility] [address] [place] [address] [facility] [address] [place] [address] Referral ID Status Reason Start Date Expiration Date Visits Requested Visits Authorized [id number] Ref Not Required PCP Requested Referral 04/04/2024 07/03/2024 1 1 Specialty Diagnoses / Procedures Referred By Contac t Referred To Contact Colon and Rectal Surgery Diagnoses History of colonic polyps Procedures CONSULT TO COLO-RECTAL SURGERY OFFICE/OUTPATIENT [facility] 60 MINUTES Manuel Ramsay MD [address] [place] [address] [place] [address] [place] [address] Referral ID Status Reason Start Date Expiration Date Visits Requested Visits Authorized [id number] Authorized PCP Requested Referral 12/23/2023 12/22/2024 1 1 Specialty Diagnoses / Procedures Referred By Contac t Referred To Contact [facility] Diagnoses Encounter for screening for malignant neoplasm of colon History of colonic polyps Procedures COLONOSCOPY SCREENING COLONOSCOPY FLX DX W/COLLJ SPEC WHEN Eva Montano APRN.EARLY CHILDHOOD ASSISTANT [address] [place] [address] [facility] [address] [place] [address] Referral ID Status Reason Start Date Expiration Date V isits Requested Visits Authorized [id number] Closed Auto-Generate d Referral 12/23/2023 12/04/2024 1 1 Additional Source Comments (unrecognized sect ion and content) No Status Records FoundNo Status Records FoundNo Status Records FoundNo Status Records FoundNo Status Records FoundNo Status Records FoundNo Status Records FoundNo Status Records FoundNo Status Records Found INFORMATION SOURCE (unrecogn ized section and content) DATE CREATED AUTHOR 09/05/2017 [facility] DATE CREATED AUTHOR AUTHOR'S ORGANIZ ATION 06/22/2018 [facility] DATE CREATED AUTHOR AUTHOR'S ORGANIZ ATION 04/10/2020 [facility] DATE CREATED AUTHOR AUTHOR'S ORGANIZ ATION 07/05/2020 [facility] DATE CREATED AUTHOR AUTHOR'S ORGANIZ ATION 06/28/2022 [facility] DATE CREATED AUTHOR AUTHOR'S ORGANIZ ATION 07/03/[address] [facility] DATE CREATED AUTHOR AUTHOR'S ORGANIZ ATION 09/20/2024 [facility] DATE CREATED AUTHOR AUTHOR'S ORGANIZ ATION 10/24/2024 [facility] DATE CREATED AUTHOR AUTHOR'S ORGANIZ ATION 10/27/2024 [facility] Reason for Visit (unrecogniz ed section and content) Reason Comments Medication Management Reason Comments Pre-op Exam For Dr. Ace Charles (sp). Out patient eye surgery on 04/17/18 for dislocated lens fragments. Reason Comments Other Reason Comments Hypertension 6 mo fu Heart Problem 6 mo fu Hyperlipidemia 6 mo fu Other 6 mo fu dry scalp Urinary Frequency 6 mo fu Erectile Dysfunction 6 mo fu Lab Review 6 mo fu [facility] Reason Comments Derm Problem LEFT lower ledbetter; sor e with itch x 2 weeks Reason Comments Hypertension 6 mo fu Heart Problem 6 mo fu Hyperlipidemia 6 mo fu Skin Problem 6 mo fu dry scalp Urinary Frequency 6 mo fu Erectile Dysfunction 6 mo fu Lab Review 6 mo fu [facility] Reason Comments Ear Pain Reason Comments Hypertension Heart Problem Hyperlipidemia Reason Comments Results Reason Comments Radiology CT Specialty Diagnoses / Procedures Referred By Betoac t Referred To Contact CT IMAGING Diagnoses Abdominal aortic aneurysm (AAA) without rupture, unspecified part (HCC) Procedures CTA ABD/PEL WO/W IVCON CT ANGIO ABD&PLVIS CNTRST MTRL W/WO CNTRST Chris Rodrigues MD [address] [place] [address] Ct Imaging [facility] Referral ID Status Reason Start Date Expiration Date V isits Requested Visits Authorized [id number] Closed Auto-Generate d Referral 03/27/2023 12/23/2023 1 1 Reason Comments Follow Up Reason Comments Consult Colonoscopy consulta tion. Reason Comments Patient Update Reason Comments New Specialty Diagnoses / Procedures Referred By Contac t Referred To Contact Colon and Rectal Surgery Diagnoses History of colonic polyps Procedures CONSULT TO COLO-RECTAL SURGERY OFFICE/OUTPATIENT [facility] 60 MINUTES Manuel Ramsay MD [address] [place] [address] [place] [address] [place] [address] Referral ID Status Reason Start Date Expiration Date V isits Requested Visits Authorized [id number] Closed PCP Requested Referral 12/23/2023 12/22/2024 1 1 Reason Comments Flu Like Symptoms X3 days Reason Comments Shoulder Injury left shoulder and le g pain x 1 day, fell down stairs and into wall Reason Comments Left foot injury X5 days Reason Comments OT EVAL OT Discharge Specialty Diagnoses / Procedures Referred By Blessing t Referred To Contact OCCUPATIONAL THERAPY Diagnoses Subdural hematoma (HCC) Procedures CONSULT TO REEL CUTTER OCCUPATIONAL THERAPY EVAL HIGH COMPLEX 60 MINS Max Tang, SUPERVISOR HEAV[employer] EQUIPMENT.EARLY CHILDHOOD ASSISTANT [address] [facility] [address] [place] [address] Phone: tel: fax: Qian Mccain, OT/L, OTD [address] [place] [address] Phone: tel: Referral ID Status Reason Start Date Expiration Date Visits Requested Visits Authorized [id number] Pending Review Auto-Generat ed Referral 08/13/2024 08/13/2025 1 1 Reason Comments Wound Check [place]junt[place] in head, nee d checked Reason Comments Wound Check Check ariadne in hea d Reason Comments Established Patient Reason Comments Appointment Reason Comments Speech Evaluation Specialty Diagnoses / Procedures Referred By Blessing t Referred To Contact SPEECH THERAPY Diagnoses Traumatic subdural hemorrhage without loss of consciousness, initial encounter (HCC) Essential (primary) hypertension Atherosclerotic heart disease of [place] coronary artery without angina pectoris Mixed hyperlipidemia Paroxysmal atrial fibrillation (HCC) Chronic kidney disease, stage 2 (mild) Type 2 diabetes mellitus without complications (HCC) Repeated falls Procedures THERAPEUTIC EXERCISES RE, EA 15 MIN. Mansi Landers DO [address] [place] [address] Phone: tel: fax: Cj, Paz, CCC-LAY OUT MAKER Referral ID Status Reason Start Date Expiration Date V isits Requested Visits Authorized [id number] Pending Review 09/15/2024 03/17/2025 1 1 Reason Comments Speech Therapy Specialty Diagnoses / Procedures Referred By Contac t Referred To Contact SPEECH THERAPY Diagnoses Traumatic subdural hemorrhage without loss of consciousness, initial encounter (HCC) Essential (primary) hypertension Atherosclerotic heart disease of [place] coronary artery without angina pectoris Mixed hyperlipidemia Paroxysmal atrial fibrillation (HCC) Chronic kidney disease, stage 2 (mild) Type 2 diabetes mellitus without complications (HCC) Repeated falls Procedures THERAPEUTIC EXERCISES RE, EA 15 MIN. Mansi Landers DO [address] [place] [address] Phone: tel: fax: Paz Corona CCC-SLP Referral ID Status Reason Start Date Expiration Date V isits Requested Visits Authorized [id number] Authorized 09/21/2024 11/16/2024 6 6 Reason Comments PT Eval Specialty Diagnoses / Procedures Referred By Contac t Referred To Contact PHYSICAL THERAPY Diagnoses Subdural hematoma (HCC) Procedures CONSULT TO PHYSICAL THERAPY PHYSICAL THERAPY EVALUATION HIGH COMPLEX 45 MINS Max Tang, SUPERVISOR HE[employer] EQUIPMENT.EARLY CHILDHOOD ASSISTANT [address] [address] Phone: tel: fax: Tameka Rock PT Referral ID Status Reason Start Date Expiration Date Visits Requested Visits Authorized [id number] Pending Review Auto-Generat ed Referral 08/13/2024 08/13/2025 1 1 Reason Comments OT Re-eval Specialty Diagnoses / Procedures Referred By Contac t Referred To Contact OCCUPATIONAL THERAPY Diagnoses Subdural hematoma (HCC) Procedures CONSULT TO REEL CUTTER OCCUPATIONAL THERAPY EVAL HIGH COMPLEX 60 MINS Max Tang R, SUPERVISOR HE[employer] EQUIPMENT.EARLY CHILDHOOD ASSISTANT [address] [address] Phone: tel: fax: Qian Mccain, OT/L, OTD [address] [place] [address] Phone: tel: Referral ID Status Reason Start Date Expiration Date Visits Requested Visits Authorized [id number] Authorized Auto-Generat ed Referral 08/13/2024 10/14/2024 6 6 Reason Comments Speech Progress Note Speech Discharge Specialty Diagnoses / Procedures Referred By Contac t Referred To Contact SPEECH THERAPY Diagnoses Traumatic subdural hemorrhage without loss of consciousness, initial encounter (HCC) Essential (primary) hypertension Atherosclerotic heart disease of [place] coronary artery without angina pectoris Mixed hyperlipidemia Paroxysmal atrial fibrillation (HCC) Chronic kidney disease, stage 2 (mild) Type 2 diabetes mellitus without complications (HCC) Repeated falls Procedures THERAPEUTIC EXERCISES RE, EA 15 MIN. Mansi Landers DO [address] [place] [address] Phone: tel: fax: Paz Corona CCC-LAY OUT MAKER Reason Comments Physical Therapy Specialty Diagnoses / Procedures Referred By Contac t Referred To Contact PHYSICAL THERAPY Diagnoses Subdural hematoma (HCC) Procedures PHYSICAL THERAPY EVALUATION HIGH COMPLEX 45 MINS Max Tang, SUPERVISOR HEAV[employer] EQUIPMENT.EARLY CHILDHOOD ASSISTANT [address] [facility] [address] [place] [address] Phone: tel: fax: Tameka Rock PT Referral ID Status Reason Start Date Expiration Date Visits Requested Visits Authorized [id number] Authorized Auto-Generat ed Referral 08/13/2024 12/02/2024 9 9 Care Teams (unrecognized sec tion and content) Tobacco Grader Relationship Specialty Start Date End Date García Peoples MD PCP - General Family Medicine 01/16/16 Tobacco Grader Relationship Specialty Start Date End Date García Peoples [address] [place] [address] PCP - General 06/25/06 No, Referral Referring 12/04/17 Lit Whitaker DO [address] [place] [address] Primary Staff Physician Cardiology 06/03/18 Tobacco Grader Relationship Specialty Start Date End Date García Peoples MD PCP - General Family Medicine 01/16/16 Tobacco Grader Relationship Specialty Start Date End Date García Peoples MD PCP - General Family Medicine 01/16/16 Tobacco Grader Relationship Specialty Start Date End Date García Peoples MD PCP - General Family Medicine 01/16/16 Tobacco Grader Relationship Specialty Start Date End Date García Peoples [address] [place] [address] PCP - General 06/25/06 No, Referral Referring 12/04/17 Lit Whitaker DO [address] [place], [place] [id number] Primary Staff Physician Cardiology 06/03/18 Tobacco Grader Relationship Specialty Start Date End Date García Peoples [address] [place] [address] PCP - General 06/25/06 No, Referral Referring 12/04/17 Lit Whitaker DO [address] [place], [place] [id number] Primary Staff Physician Cardiology 06/03/18 Team Status: Active Member Role Status Dates Out of [facility] Doctor Family Provider Active Dr. Edson Baptiste MD Primary Care Provider Active Team Status: Inactive Member Role Status Dates Dr. Edson Baptiste MD Primary Care Provider, Attend ing Provider Active Team Status: Inactive Member Role Status Dates Dr. Edson Baptiste MD Primary Care Provider Active Dr. Marisa Schultz MD Attending Provider, Emergency Provider Active Tobacco Grader Relationship Specialty Start Date End Date Edson Baptiste MD [address] [facility] [address] [place] [address] PCP - General Family Medicine 07/03/23 No, Referral Referring 12/04/17 Lit Whitaker DO [address] [place] [address] Primary Staff Physician Cardiology 06/03/18 Tobacco Grader Relationship Specialty Start Date End Date Edson Baptiste MD [address] [facility] [address] [place] [address] PCP - General Family Medicine 07/03/23 No, Referral Referring 12/04/17 Lit Whitaker DO [address] [address] Primary Staff Physician Cardiology 06/03/18 Tobacco Grader Relationship Specialty Start Date End Date Edson Baptiste MD [address] [facility] [address] [place] [address] PCP - General Family Medicine 07/03/23 No, Referral Referring 12/04/17 Lit Whitaker DO [address] [place], [place] [id number] Primary Staff Physician Cardiology 06/03/18 Tobacco Grader Relationship Specialty Start Date End Date Edson Baptiste MD [address] [facility] [address] [place], [place] [id number] PCP - General Family Medicine 07/03/23 No, Referral Referring 12/04/17 Lit Whitaker DO [address] [phone] Primary Staff Physician Cardiology 06/03/18 Tobacco Grader Relationship Specialty Start Date End Date Edson Baptiste MD [address] [facility] [address] [place], [place] [id number] PCP - General Family Medicine 07/03/23 No, Referral Referring 12/04/17 Lit Whitaker DO [address] [place] [address] Primary Staff Physician Cardiology 06/03/18 Tobacco Grader Relationship Specialty Start Date End Date Edson Baptiste MD [address] [facility] [address] [place], [place] [id number] PCP - General Family Medicine 07/03/23 No, Referral Referring 12/04/17 Lit Whitaker DO [address] [place] [address] Primary Staff Physician Cardiology 06/03/18 Tobacco Grader Relationship Specialty Start Date End Date Edson Baptiste MD [address] [facility] [address] [place] [address] PCP - General Family Medicine 07/03/23 No, Referral Referring 12/04/17 Lit Whitaker DO [address] [place] [address] Primary Staff Physician Cardiology 06/03/18 Tobacco Grader Relationship Specialty Start Date End Date Edson Baptiste MD [address] [facility] [address] [place], [place] [id number] PCP - General Family Medicine 07/03/23 No, Referral Referring 12/04/17 Lit Whitaker DO [address] [place] [address] Primary Staff Physician Cardiology 06/03/18 Tobacco Grader Relationship Specialty Start Date End Date Edson Baptiste MD [address] [place], [place] [address] PCP - General Family Medicine 07/03/23 No, Referral Referring 12/04/17 Lit Whitaker DO [address] [place] [address] Primary Staff Physician Cardiology 06/03/18 Tobacco Grader Relationship Specialty Start Date End Date Edson Baptiste MD [address] [facility] [address] [place] [address] PCP - General Family Medicine 07/03/23 No, Referral Referring 12/04/17 Lit Whitaker DO [address] [place] [address] Primary Staff Physician Cardiology 06/03/18 Tobacco Grader Relationship Specialty Start Date End Date Edson Baptiste MD [address] [facility] [address] [place] [address] PCP - General Family Medicine 07/03/23 No, Referral Referring 12/04/17 Lit Whitaker DO [address] [place] [id number] Primary Staff Physician Cardiology 06/03/18 Tobacco Grader Relationship Specialty Start Date End Date Edson Baptiste MD [address] [facility] [address] [place], [place] [address] PCP - General Family Medicine 07/03/23 No, Referral Referring 12/04/17 Lit Whitaker DO [address] [place] [address] Primary Staff Physician Cardiology 06/03/18 Tobacco Grader Relationship Specialty Start Date End Date Edson Baptiste MD [address] [facility] [address] [place] [address] PCP - General Family Medicine 07/03/23 No, Referral Referring 12/04/17 Lit Whitaker DO [address] [address] Primary Staff Physician Cardiology 06/03/18 Tobacco Grader Relationship Specialty Start Date End Date Edson Baptiste MD [address] [facility] [address] [place] [address] PCP - General Family Medicine 07/03/23 No, Referral Referring 12/04/17 Lit Whitaker DO [address] [id number] Primary Staff Physician Cardiology 06/03/18 Tobacco Grader Relationship Specialty Start Date End Date Edson Baptiste MD [address] [facility] [address] [place], [place] [phone] PCP - General Family Medicine 07/03/23 No, Referral Referring 12/04/17 Lit Whitaker DO [address] [address] Primary Staff Physician Cardiology 06/03/18 Tobacco Grader Relationship Specialty Start Date End Date Edson Baptiste MD [address] [facility] [address] [place], [place] [id number] PCP - General Family Medicine 07/03/23 No, Referral Referring 12/04/17 Lit Whitaker DO [address] [place] [id number] Primary Staff Physician Cardiology 06/03/18 Tobacco Grader Relationship Specialty Start Date End Date Edson Baptiste MD [address] [facility] [address] [place] [address] PCP - General Family Medicine 07/03/23 No, Referral Referring 12/04/17 Lit Whitaker DO [address] [place] [address] Primary Staff Physician Cardiology 06/03/18 Tobacco Grader Relationship Specialty Start Date End Date Edson Baptiste MD [address] [facility] [address] [place] [address] PCP - General Family Medicine 07/03/23 No, Referral Referring 12/04/17 Lit Whitaker DO [address] [place] [address] Primary Staff Physician Cardiology 06/03/18 Tobacco Grader Relationship Specialty Start Date End Date Edson Baptiste MD [address] [facility] [address] [place], [place] [address] PCP - General Family Medicine 07/03/23 No, Referral Referring 12/04/17 Lit Whitaker DO [address] [place] [address] Primary Staff Physician Cardiology 06/03/18 Tobacco Grader Relationship Specialty Start Date End Date Edson Baptiste MD [address] [place] [address] PCP - General Family Medicine 07/03/23 No, Referral Referring 12/04/17 Lit Whitaker DO [address] [place] [address] Primary Staff Physician Cardiology 06/03/18 Tobacco Grader Relationship Specialty Start Date End Date Edson Baptiste MD [address] [facility] [address] [place] [address] PCP - General Family Medicine 07/03/23 No, Referral Referring 12/04/17 Lit Whitaker DO [address] [place] [address] Primary Staff Physician Cardiology 06/03/18 Tobacco Grader Relationship Specialty Start Date End Date Edson Baptiste MD [address] [facility] [address] [place] [address] PCP - General Family Medicine 07/03/23 No, Referral Referring 12/04/17 Lit Whitaker DO [address] [place] [address] Primary Staff Physician Cardiology 06/03/18 Tobacco Grader Relationship Specialty Start Date End Date Edson Baptiste MD [address] [facility] [address] [place] [address] PCP - General Family Medicine 07/03/23 No, Referral Referring 12/04/17 Lit Whitaker DO [address] [place] [address] Primary Staff Physician Cardiology 06/03/18 Tobacco Grader Relationship Specialty Start Date End Date Edson Baptiste MD [address] [facility] [address] [place] [address] PCP - General Family Medicine 07/03/23 No, Referral Referring 12/04/17 Lit Whitaker DO [address] [address] Primary Staff Physician Cardiology 06/03/18 Tobacco Grader Relationship Specialty Start Date End Date Edson Baptiste MD [address] [facility] [address] [place] [address] PCP - General Family Medicine 07/03/23 No, Referral Referring 12/04/17 Lit Whitaker DO [address] [phone] Primary Staff Physician Cardiology 06/03/18 Tobacco Grader Relationship Specialty Start Date End Date Edson Baptiste MD [address] [facility] [address] [place], [place] [id number] PCP - General Family Medicine 07/03/23 No, Referral Referring 12/04/17 Lit Whitaker DO [address] [phone] Primary Staff Physician Cardiology 06/03/18 Tobacco Grader Relationship Specialty Start Date End Date Edson Baptiste MD [address] [facility] [address] [place], [place] [address] PCP - General Family Medicine 07/03/23 No, Referral Referring 12/04/17 Lit Whitaker DO [address] [place], [place] [phone] Primary Staff Physician Cardiology 06/03/18 Tobacco Grader Relationship Specialty Start Date End Date Edson Baptiste MD [address] [facility] [address] [place] [id number] PCP - General Family Medicine 07/03/23 No, Referral Referring 12/04/17 Lit Whitaker DO [address] [place] [id number] Primary Staff Physician Cardiology 06/03/18 Tobacco Grader Relationship Specialty Start Date End Date Edson Baptiste MD [address] [facility] [address] [place], [place] [id number] PCP - General Family Medicine 07/03/23 No, Referral Referring 12/04/17 Lit Whitaker DO [address] [place] [address] Primary Staff Physician Cardiology 06/03/18 Tobacco Grader Relationship Specialty Start Date End Date Edson Baptiste MD [address] [facility] [address] [place], [place] [id number] PCP - General Family Medicine 07/03/23 No, Referral Referring 12/04/17 Lit Whitaker DO [address] [place] [address] Primary Staff Physician Cardiology 06/03/18 Tobacco Grader Relationship Specialty Start Date End Date Edson Baptiste MD [address] [place], [place] [id number] PCP - General Family Medicine 07/03/23 No, Referral Referring 12/04/17 Lit Whitaker DO [address] [address] Primary Staff Physician Cardiology 06/03/18 Tobacco Grader Relationship Specialty Start Date End Date Edson Baptiste MD [address] [facility] [address] [place] [address] PCP - General Family Medicine 07/03/23 No, Referral Referring 12/04/17 Lit Whitaker DO [address] [id number] Primary Staff Physician Cardiology 06/03/18 Tobacco Grader Relationship Specialty Start Date End Date Edson Baptiste MD [address] [facility] [address] [place], [place] [id number] PCP - General Family Medicine 07/03/23 No, Referral Referring 12/04/17 Lit Whitaker DO [address] [address] Primary Staff Physician Cardiology 06/03/18 Tobacco Grader Relationship Specialty Start Date End Date Edson Baptiste MD [address] [facility] [address] [place], [place] [id number] PCP - General Family Medicine 07/03/23 No, Referral Referring 12/04/17 Lit Whitaker DO [address] [address] Primary Staff Physician Cardiology 06/03/18 Team Status: Active Member Role/Relationship Status Dates Out of [facility] Doctor Family Provider Active Dr. Edson Baptiste MD Primary Care Provider Active Team Status: Inactive Member Role/Relationship Status Dates Dr. Edson Baptiste MD Primary Care Provider Active Start: October 13, 2024 End: October 13, 2024 Dr. Edson Baptiste MD Attending Provider Active Start: October 13, 2024 End: October 13, 2024 Dr. Edson Baptiste MD Referring Provider Active Start: October 13, 2024 End: October 13, 2024 Tobacco Grader Relationship Specialty Start Date End Date Edson Baptiste MD [facility] [address] [address] PCP - General Family Medicine 07/03/23 No, Referral Referring 12/04/17 Lit Whitaker DO [address] [address] Primary Staff Physician Cardiology 06/03/18 Source Comments (unrecognize d section and content) In the event this informatio n is protected by the Federal Confidentiality of Alcohol and Drug Abuse Patient Records regulations: The Federal rules restrict any use of the information to criminally investigate or prosecute any alcohol or drug abuse patient.[facility] HealthIn the event this information is protected by the Federal Confidentiality of Alcohol and Drug Abuse Patient Records regulations: The Federal rules restrict any use of the information to criminally investigate or prosecute any alcohol or drug abuse patient.[facility] HealthIn the event this information is protected by the Federal Confidentiality of Alcohol and Drug Abuse Patient Records regulations: The Federal rules restrict any use of the information to criminally investigate or prosecute any alcohol or drug abuse patient.[facility] HealthIn the event this information is protected by the Federal Confidentiality of Alcohol and Drug Abuse Patient Records regulations: The Federal rules restrict any use of the information to criminally investigate or prosecute any alcohol or drug abuse patient.[facility] HealthIn the event this information is protected by the Federal Confidentiality of Alcohol and Drug Abuse Patient Records regulations: The Federal rules restrict any use of the information to criminally investigate or prosecute any alcohol or drug abuse patient.[facility] HealthIn the event this information is protected by the Federal Confidentiality of Alcohol and Drug Abuse Patient Records regulations: The Federal rules restrict any use of the information to criminally investigate or prosecute any alcohol or drug abuse patient.[facility] HealthIn the event this information is protected by the Federal Confidentiality of Alcohol and Drug Abuse Patient Records regulations: The Federal rules restrict any use of the information to criminally investigate or prosecute any alcohol or drug abuse patient.[facility] HealthIn the event this information is protected by the Federal Confidentiality of Alcohol and Drug Abuse Patient Records regulations: The Federal rules restrict any use of the information to criminally investigate or prosecute any alcohol or drug abuse patient.[facility] HealthIn the event this information is protected by the Federal Confidentiality of Alcohol and Drug Abuse Patient Records regulations: The Federal rules restrict any use of the information to criminally investigate or prosecute any alcohol or drug abuse patient.[facility] HealthIn the event this information is protected by the Federal Confidentiality of Alcohol and Drug Abuse Patient Records regulations: The Federal rules restrict any use of the information to criminally investigate or prosecute any alcohol or drug abuse patient.[facility] HealthIn the event this information is protected by the Federal Confidentiality of Alcohol and Drug Abuse Patient Records regulations: The Federal rules restrict any use of the information to criminally investigate or prosecute any alcohol or drug abuse patient.[facility] HealthIn the event this information is protected by the Federal Confidentiality of Alcohol and Drug Abuse Patient Records regulations: The Federal rules restrict any use of the information to criminally investigate or prosecute any alcohol or drug abuse patient.[facility] HealthIn the event this information is protected by the Federal Confidentiality of Alcohol and Drug Abuse Patient Records regulations: The Federal rules restrict any use of the information to criminally investigate or prosecute any alcohol or drug abuse patient.[facility] HealthIn the event this information is protected by the Federal Confidentiality of Alcohol and Drug Abuse Patient Records regulations: The Federal rules restrict any use of the information to criminally investigate or prosecute any alcohol or drug abuse patient.[facility] HealthIn the event this information is protected by the Federal Confidentiality of Alcohol and Drug Abuse Patient Records regulations: The Federal rules restrict any use of the information to criminally investigate or prosecute any alcohol or drug abuse patient.[facility] HealthIn the event this information is protected by the Federal Confidentiality of Alcohol and Drug Abuse Patient Records regulations: The Federal rules restrict any use of the information to criminally investigate or prosecute any alcohol or drug abuse patient.[facility] HealthIn the event this information is protected by the Federal Confidentiality of Alcohol and Drug Abuse Patient Records regulations: The Federal rules restrict any use of the information to criminally investigate or prosecute any alcohol or drug abuse patient.[facility] HealthIn the event this information is protected by the Federal Confidentiality of Alcohol and Drug Abuse Patient Records regulations: The Federal rules restrict any use of the information to criminally investigate or prosecute any alcohol or drug abuse patient.[facility] HealthIn the event this information is protected by the Federal Confidentiality of Alcohol and Drug Abuse Patient Records regulations: The Federal rules restrict any use of the information to criminally investigate or prosecute any alcohol or drug abuse patient.[facility] HealthIn the event this information is protected by the Federal Confidentiality of Alcohol and Drug Abuse Patient Records regulations: The Federal rules restrict any use of the information to criminally investigate or prosecute any alcohol or drug abuse patient.[facility] HealthIn the event this information is protected by the Federal Confidentiality of Alcohol and Drug Abuse Patient Records regulations: The Federal rules restrict any use of the information to criminally investigate or prosecute any alcohol or drug abuse patient.[facility] HealthIn the event this information is protected by the Federal Confidentiality of Alcohol and Drug Abuse Patient Records regulations: The Federal rules restrict any use of the information to criminally investigate or prosecute any alcohol or drug abuse patient.[facility] HealthIn the event this information is protected by the Federal Confidentiality of Alcohol and Drug Abuse Patient Records regulations: The Federal rules restrict any use of the information to criminally investigate or prosecute any alcohol or drug abuse patient.[facility] HealthIn the event this information is protected by the Federal Confidentiality of Alcohol and Drug Abuse Patient Records regulations: The Federal rules restrict any use of the information to criminally investigate or prosecute any alcohol or drug abuse patient.[facility] HealthIn the event this information is protected by the Federal Confidentiality of Alcohol and Drug Abuse Patient Records regulations: The Federal rules restrict any use of the information to criminally investigate or prosecute any alcohol or drug abuse patient.[facility] HealthIn the event this information is protected by the Federal Confidentiality of Alcohol and Drug Abuse Patient Records regulations: The Federal rules restrict any use of the information to criminally investigate or prosecute any alcohol or drug abuse patient.[facility] HealthIn the event this information is protected by the Federal Confidentiality of Alcohol and Drug Abuse Patient Records regulations: The Federal rules restrict any use of the information to criminally investigate or prosecute any alcohol or drug abuse patient.[facility] HealthIn the event this information is protected by the Federal Confidentiality of Alcohol and Drug Abuse Patient Records regulations: The Federal rules restrict any use of the information to criminally investigate or prosecute any alcohol or drug abuse patient.[facility] HealthIn the event this information is protected by the Federal Confidentiality of Alcohol and Drug Abuse Patient Records regulations: The Federal rules restrict any use of the information to criminally investigate or prosecute any alcohol or drug abuse patient.[facility] HealthIn the event this information is protected by the Federal Confidentiality of Alcohol and Drug Abuse Patient Records regulations: The Federal rules restrict any use of the information to criminally investigate or prosecute any alcohol or drug abuse patient.[facility] HealthIn the event this information is protected by the Federal Confidentiality of Alcohol and Drug Abuse Patient Records regulations: The Federal rules restrict any use of the information to criminally investigate or prosecute any alcohol or drug abuse patient.[facility] HealthIn the event this information is protected by the Federal Confidentiality of Alcohol and Drug Abuse Patient Records regulations: The Federal rules restrict any use of the information to criminally investigate or prosecute any alcohol or drug abuse patient.[facility] HealthIn the event this information is protected by the Federal Confidentiality of Alcohol and Drug Abuse Patient Records regulations: The Federal rules restrict any use of the information to criminally investigate or prosecute any alcohol or drug abuse patient.[facility] HealthIn the event this information is protected by the Federal Confidentiality of Alcohol and Drug Abuse Patient Records regulations: The Federal rules restrict any use of the information to criminally investigate or prosecute any alcohol or drug abuse patient.[facility] HealthIn the event this information is protected by the Federal Confidentiality of Alcohol and Drug Abuse Patient Records regulations: The Federal rules restrict any use of the information to criminally investigate or prosecute any alcohol or drug abuse patient.[facility] HealthIn the event this information is protected by the Federal Confidentiality of Alcohol and Drug Abuse Patient Records regulations: The Federal rules restrict any use of the information to criminally investigate or prosecute any alcohol or drug abuse patient.[facility] HealthIn the event this information is protected by the Federal Confidentiality of Alcohol and Drug Abuse Patient Records regulations: The Federal rules restrict any use of the information to criminally investigate or prosecute any alcohol or drug abuse patient.[facility] HealthIn the event this information is protected by the Federal Confidentiality of Alcohol and Drug Abuse Patient Records regulations: The Federal rules restrict any use of the information to criminally investigate or prosecute any alcohol or drug abuse patient.[facility] HealthIn the event this information is protected by the Federal Confidentiality of Alcohol and Drug Abuse Patient Records regulations: The Federal rules restrict any use of the information to criminally investigate or prosecute any alcohol or drug abuse patient.[facility] HealthIn the event this information is protected by the Federal Confidentiality of Alcohol and Drug Abuse Patient Records regulations: The Federal rules restrict any use of the information to criminally investigate or prosecute any alcohol or drug abuse patient.[facility] HealthIn the event this information is protected by the Federal Confidentiality of Alcohol and Drug Abuse Patient Records regulations: The Federal rules restrict any use of the information to criminally investigate or prosecute any alcohol or drug abuse patient.[facility] HealthIn the event this information is protected by the Federal Confidentiality of Alcohol and Drug Abuse Patient Records regulations: The Federal rules restrict any use of the information to criminally investigate or prosecute any alcohol or drug abuse patient.[facility] HealthIn the event this information is protected by the Federal Confidentiality of Alcohol and Drug Abuse Patient Records regulations: The Federal rules restrict any use of the information to criminally investigate or prosecute any alcohol or drug abuse patient.[facility] HealthIn the event this information is protected by the Federal Confidentiality of Alcohol and Drug Abuse Patient Records regulations: The Federal rules restrict any use of the information to criminally investigate or prosecute any alcohol or drug abuse patient.[facility] HealthIn the event this information is protected by the Federal Confidentiality of Alcohol and Drug Abuse Patient Records regulations: The Federal rules restrict any use of the information to criminally investigate or prosecute any alcohol or drug abuse patient.[facility] HealthIn the event this information is protected by the Federal Confidentiality of Alcohol and Drug Abuse Patient Records regulations: The Federal rules restrict any use of the information to criminally investigate or prosecute any alcohol or drug abuse patient.[facility] Goals (unrecognized section and content) Goals may be documented in a n alternate sectionGoals may be documented in an alternate sectionGoals may be documented in an alternate section FOR RECORDS PERTAINING TO PATIENTS WHO ARE OR HAVE BEEN ENROLLED IN A CHEMICAL DEPENDENCY/SUBSTANCEABUSE PROGRAM, SOME INFORMATION MAY BE OMITTED. This clinical summary was aggregated from multiple sources. Caution should be exercised in using it in the provision of clinical care. This summary normalizes information from multiple sources, and as a consequence, information in this document may materially change the coding, format and clinical context of patient data. In addition, data may be omitted in some cases. CLINICAL DECISIONS SHOULD BE BASED ON THE PRIMARY CLINICAL RECORDS. [facility]. provides no warranty or guarantee of the accuracy or completeness of information in this document.
== END | disposition home or self-care (01) ==
LOC: LAB.FUTURE 10:11 → MFPLAB 10:11
PROVIDERS: PCP Family Medicine; Referring Provider Family Medicine; Visit Provider Family Medicine
DX: R94.4 Abnormal results of kidney function studies (principal)
CPT/HCPCS: 36415; 80048

== ENCOUNTER → 2025-02-09 | Outpatient (CLI) | payer MEDICARE, SELFPAY ==
[2025-02-09 10:27] LABS: Squamous Epithelial Cells - UA 0 SEEN /hpf (0-5)
[2025-02-09 12:18] LABS: Color, Urine Yellow (Yellow); Glucose, Dipstick Normal (Normal); Ketone-Dipstick Negative (Negative); Leukocyte Esterase-Dipstick 25 /ul (Negative); Nitrite-Dipstick Negative (Negative); Occult Blood-Urine 10 /ul (Negative); Protein-Dipstick 30 mg/dl (Negative); Specific Gravity, Urine 1.025 (1.002-1.030); Urine Bilirubin Dipstick 1 mg/dL (Negative)
[2025-02-09 12:20] LABS: Hematocrit 38.0 % (40-54); Hemoglobin 12.7 g/dL (13.0-16.5); Immature Granulocytes Count 0.020 X10^3/uL (0.0-0.0); Mean Corp Hgb Conc 33.4 g/dL (32-36); Mean Corpuscular Volume 90.0 fL (80-94); Mean Platelet Vol. 10.5 fl (6.2-12.0); NRBC Flagged by Analyzer 0 % (0-5); Platelet Count 159 K/mm3 (150-450); RBC Distribution Width CV 13.1 % (11.6-14.6); RBC Distribution Width SD 42.8 fl (35.1-43.9); Red Blood Count 4.22 M/mm3 (4.6-6.2); White Blood Count 6.3 K/mm3 (4.4-11.0)
[2025-02-09 12:27] LABS: Mucous, Urine 1+ /hpf (<or=2+); Red Blood Cells-Urine 0-5 SEEN /hpf (0-5)
[2025-02-09 12:59] LABS: AST(SGOT) 20 U/L (<=37); Alanine Aminotransfer ALT/SGPT 9 U/L (<=46); Albumin, Serum 3.9 g/dL (3.4-4.8); Alkaline Phosphatase 44 U/L (40-129); Anion Gap 9 (5-15); BUN 23 mg/dL (4-19); BUN/Creat Ratio 16.4 RATIO (10-20); Calcium,Total 9.2 mg/dL (7.6-11.0); Carbon Dioxide 27.3 mmol/L (21.0-32.0); Chloride 106 mmol/L (98-108); Cholesterol 126 mg/dL (<=200); Globulin 2.3 g/dL (2.2-4.2); Glucose 122 mg/dL (70-99); Low Density Lipoprotein Calc. 68 mg/dL; Magnesium 2.3 mg/dL (1.5-2.2); Potassium 4.3 mmol/L (3.3-5.1); Triglycerides 106 mg/dL; Very Low Density Lipoprotein 21 mg/dL (5-40); cholesterol:hdl ratio screen 3.28
== END | disposition home or self-care (01) ==
LOC: MFPLAB 10:25
PROVIDERS: PCP Family Medicine; Visit Provider Family Medicine
DX: I10 Essential (primary) hypertension (principal); E78.5 Hyperlipidemia, unspecified
CPT/HCPCS: 36415; 80053; 80061; 81001; 83735; 85025